=== PATIENT | male | born 1950 | race Caucasian/White ===

== ENCOUNTER 2022-12-21 10:40 | Outpatient (RCR) | payer MEDICARE, OTHER, SELFPAY ==
[2022-12-21 13:31] LABS: Alanine Aminotransferase 27 U/L (16-63); Albumin Level 3.5 g/dL (3.4-5.0); Alkaline Phosphatase 49 U/L (46-116); Anion Gap 9.1; Aspartate Amino Transferase 15 U/L (15-37); BUN Creatinine Ratio 12.2; Bilirubin Total 0.5 mg/dL (0.2-1.0); Carbon Dioxide 30.3 mmol/L (21.0-32.0); Chloride 102 mmol/L (98-107); Estimated GFR (African America >60 (>=60); Estimated GFR (Non-African Ame >60 (>=60); Globulin 3.5 g/dL; Glucose 141 mg/dL (74-106); Lactate Dehydrogenase 181 U/L (85-227); Potassium 4.4 mmol/L (3.5-5.1); Sodium 137 mmol/L (136-145)
[2022-12-21 13:58] LABS: Basophils Absolute Auto 0.1 10^3/uL (0.0-0.1); Basophils Percent Auto 1.6 % (0.2-2.0); Eosinophils Absolute Auto 0.3 10^3/uL (0.0-0.7); Eosinophils Percent Auto 5.9 % (0.9-7.0); Hemoglobin 12.3 g/dL (14.0-18.0); Immature Granulocytes Abs Auto 0.01 10^3/uL (0.00-0.03); Immature Granulocytes Pct Auto 0.2 % (0.0-0.5); Lymphocytes Absolute Auto 0.9 10^3/uL (1.2-3.8); Lymphocytes Percent Auto 17.6 % (20.5-60.0); Mean Corpuscular HGB Conc 32.4 g/dL (29.9-35.2); Mean Corpuscular Hemoglobin 29.4 pg (25.9-34.0); Mean Corpuscular Volume 90.7 fL (80.0-94.0); Mean Platelet Volume 9.6 fL (9.5-13.5); Monocytes Absolute Auto 0.4 10^3/uL (0.3-0.8); Monocytes Percent Auto 8.3 % (1.7-12.0); Neutrophils Absolute Auto 3.3 10^3/uL (1.4-6.5); Neutrophils Percent Auto 66.4 % (43.0-75.0); Platelet Count 235 10^3/uL (150-450); Red Blood Count 4.19 10^6/uL (4.70-6.10); Red Cell Distribution Width 14.7 % (11.0-15.0)
[2022-12-21 15:03] LABS: Percent Iron Saturation 19.9 %
[2022-12-22 04:07] LABS: Haptoglobin 162 mg/dL (34-355)
[2022-12-22 05:07] LABS: HCV Antibody Non Reactive (Non Reactive)
[2022-12-22 13:10] LABS: Immunoglobulin A, Qn, Serum 90 mg/dL (61-437); Immunoglobulin G, Qn, Serum 692 mg/dL (603-1613); Immunoglobulin M, Qn, Serum 97 mg/dL (15-143)
[2023-04-11 13:56] LABS: Reticulocyte Count 1.43 % (0.60-3.10)
== END 2022-12-21 13:00 | disposition home or self-care (01) ==
LOC: HEMC 10:40
PROVIDERS: PCP Internal Medicine; Visit Provider Internal Medicine Hematology & Oncology
DX: D64.9 Anemia, unspecified (principal); E80.29 Other porphyria
CPT/HCPCS: 36415; 80053; 82728; 83010; 83540; 83550; 83615; 84120; 84311; 85025; 85045; 86803; 99203; G0463

== ENCOUNTER 2023-01-11 09:17 | Outpatient (RCR) | payer MEDICARE, OTHER, SELFPAY | END 2023-01-20 23:59 | disposition home or self-care (01) | LOC: INF 09:17 | PROVIDERS: PCP Internal Medicine; Visit Provider Internal Medicine Hematology & Oncology | DX: E80.29 Other porphyria (principal); D64.9 Anemia, unspecified; D69.6 Thrombocytopenia, unspecified; D50.9 Iron deficiency anemia, unspecified; K90.9 Intestinal malabsorption, unspecified | CPT/HCPCS: G0463 ==

== ENCOUNTER 2023-01-18 09:50 | Outpatient (OUT) | payer MEDICARE, OTHER, SELFPAY ==
--- NOTE | 2023-01-18 09:53 | US_ITS ---
The [address] [address] Patient Name: NEREYDA BARKER MRN: [id number] date: 1950 Sex: M Assigned Patient Location: US Current Patient Location: Accession/Order Number: [id number] Exam Date: 01/18/2023 10:00 Report Date: 01/18/2023 12:17 At the request of: SOPHIE TEJEDA Procedure: US right upper quadrant EXAM: US right upper quadrant HISTORY: Porphyria, Right Upper Quadrant Pain COMPARISON: None. TECHNIQUE: Real-time ultrasound imaging of the right upper quadrant. Findings: Evaluation of pancreas is limited due to overlying bowel gas. Unremarkable hepatic parenchymal echotexture. No focal intrahepatic mass. The main portal vein is patent and demonstrates hepatopedal flow. The gallbladder is fluid-filled. No stones, wall thickening or pericholecystic fluid. There are echogenic nonshadowing foci adjacent to the gallbladder wall likely representing polyps. The largest measures 0.6 cm. The technologist reports a negative sonographic Carrero's sign. No biliary ductal dilatation. The common bile duct measures 0.3 cm. The right kidney measures 11.8 cm. There is good corticomedullary differentiation. No renal stones or collecting system dilatation. No focal mass or perinephric fluid collection. US/US right upper quadrant IMPRESSION: 1. Gallbladder polyps. If indicated, suggest follow-up ultrasound in one year to establish stability. Electronically authenticated by: RICKI FRIEDMAN Date: 01/18/2023 12:17
== END 2023-01-18 09:51 | disposition home or self-care (01) ==
LOC: US 09:50
PROVIDERS: PCP Internal Medicine; Visit Provider Internal Medicine Hematology & Oncology
DX: D64.9 Anemia, unspecified (principal); E80.29 Other porphyria; K82.4 Cholesterolosis of gallbladder
CPT/HCPCS: 76705

== ENCOUNTER 2023-01-28 07:19 | Outpatient (RCR) | payer MEDICARE, OTHER, SELFPAY ==
[2023-01-21 09:54] VITALS: BP 126/79; PULSE 75; RESP 18; TEMP 36.5; O2SAT 93
[2023-01-21] MEDS: FERUMOXYTOL 510 MG in 0.9 % SODIUM CHLORIDE 100 ML 351 MG IV (09:58)
[2023-01-28 09:33] VITALS: BP 145/88; PULSE 83; RESP 20; TEMP 36.8; O2SAT 98
[2023-01-28] MEDS: FERUMOXYTOL 510 MG in 0.9 % SODIUM CHLORIDE 100 ML 234 MG IV (09:39)
--- NOTE | 2023-01-28 09:50 | PC.NURSE ---
0920 Arrival ambulatory. Alert oreiented. 0930 #24 iv initiated left hand on 1st attempt, tolerated well.
--- NOTE | 2023-01-28 09:53 | PC.NURSE ---
Vital Signs Temp Pulse Resp BP Pulse Ox O2 Del Method 01/28/23 09:33 98.2 F 83 20 145/88 H 98 Room Air
== END 2023-01-28 10:30 | disposition home or self-care (01) ==
LOC: INF 07:19
PROVIDERS: PCP Internal Medicine; Visit Provider Internal Medicine Hematology & Oncology
DX: D64.9 Anemia, unspecified (principal); E80.29 Other porphyria; D69.6 Thrombocytopenia, unspecified; D50.9 Iron deficiency anemia, unspecified; K90.9 Intestinal malabsorption, unspecified
CPT/HCPCS: 96365; Q0138

== ENCOUNTER 2024-12-18 22:33 | Emergency (ER) | payer MEDICARE, OTHER, SELFPAY ==
--- OUTSIDE RECORDS SUMMARY | 2024-12-04 14:23 | XMS_ITS | Encounter Summary ---
Author Organization [facility] Address [address] [place] [address] Phone Care Team Providers Care Finishing Manager Name Role Phone Tio Rodríguez MD Primary Care Provider [phone] Ryne Maravilla MD Unavailable [phone] Jessa Magallanes MD Unavailable [phone] Reason for Referral * Imaging (Routine) - AuthorizedSpecialtyDiagnoses / ProceduresReferred By ContactReferred To ContactRadiology Diagnoses Persistent atrial fibrillation (Multi) Procedures CT post watchman full contrast Jessa Magallanes MD [address] [facility], [address] [address] Phone: tel: fax: Referral IDStatusReasonStart DateExpiration DateVisits RequestedVisits [id number] Perform Procedure Reason for Visit * Imaging (Routine) - AuthorizedSpecialtyDiagnoses / ProceduresReferred By ContactReferred To ContactRadiology Diagnoses Persistent atrial fibrillation (Multi) Procedures CT post watchman full contrast Jessa Magallanes MD [address] [facility], [facility] [address] [place] [address] Phone: tel: fax: Referral IDStatusReasonStart DateExpiration DateVisits RequestedVisits [id number] Perform Procedure Encounter Details DateTypeDepartmentCare Team (Latest Contact Info)Nqznttwboef56/14/2025 2:23 PM EDT - 12/04/2024 11:59 PM EDTHospital Encounter [place] [address] [place] [phone] Persistent atrial fibrillation (Multi) Discharge Disposition: Home Social History Tobacco UseTypesPacks/DayYears UsedDateSmoking Tobacco: FormerCigarettes1.515 Quit: 2002Smokeless Tobacco: NeverAlcohol UseStandard Drinks/WeekCommentsNever0 (1 standard drink = 0.6 oz pure alcohol)PHQ-2AnswerDate RecordedPatient Health Questionnaire-2 Qbfpo358Sex and Gender InformationValueDate RecordedSex Assigned at BirthNot on fileLegal HhlQelp60/26/2022 7:13 PM ESTGender Identity Not on fileSexual OrientationNot on filedocumented as of this encounter Functional Status * Garces Fall RiskQuestionAnswerDate of AssessmentAuthorHistory of Falling, Immediate or Within 3 Ouyzsi990 3:34 PM EDTIngris Pacheco ASecondary Qiqdrsrlc665/14/2025 3:34 PM EDTIngris Pacheco AAmbulatory Ycz544 3:34 PM EDTIngris Pacheco AIntravenous Therapy/Heparin Thzq673 3:34 PM EDT [facility] AGait/Fhgvuufonzsu040/14/2025 3:34 PM EDTWestIngris AMental Oaxmuy685 3:34 PM EDIngris Alvarez AMorse Fall Risk Kpxud108 3:34 PM EDTIngris Pacheco A * Communicable Disease ScreeningQuestionAnswerDate of AssessmentAuthorDo you have any of the following new or worsening symptoms?None of these12/04/2024 2:23 PM Manolo Amaro documented as of this encounter Medications at Time of Discharge MedicationSigDispense QuantityRefillsLast FilledStart DateEnd Date abatacept (Orencia) 125 mg/mL injection Inject under the skin. acetaminophen (TYLENOL PO) Take 625 mg by mouth if needed. aspirin 81 mg chewable tablet Indications:Unspecified atrial fibrillation (Multi),Post-operative stateChew and swallow 1 tablet (81 mg) once daily. Please start Aspirin in 3 months the day after you stop Warfarin. Do not fill before December 26, 2024.12/26/2024 atorvastatin (Lipitor) 10 mg tablet Take 1 tablet (10 mg) by mouth once daily. baclofen (Lioresal) 10 mg tablet Take 1 tablet (10 mg) by mouth as needed at bedtime for muscle spasms. ferrous gluconate 324 (38 Fe) mg tablet Take 1 tablet by mouth once daily. hydroCHLOROthiazide (HYDRODiuril) 25 mg tablet Take 1 tablet (25 mg) by mouth once daily. hydroxychloroquine (Plaquenil) 200 mg tablet Take 1 tablet (200 mg) by mouth 2 times a day. insulin glargine (Lantus U-100 Insulin) 100 unit/mL injection Inject 12 Units under the skin if needed. Take as directed per insulin instructions. insulin lispro (HumaLOG) 100 unit/mL injection Inject under the skin once daily. Take as directed per insulin instructions. leflunomide (Arava) 20 mg tablet Take 1 tablet (20 mg) by mouth once daily. losartan (Cozaar) 100 mg tablet Indications:Essential hypertensionTake 1 tablet (100 mg) by mouth once daily. 90 tablet 5010/23/2025 melatonin 10 mg tablet Take 1 tablet (10 mg) by mouth as needed at bedtime. metFORMIN (Glucophage) 500 mg tablet Take 1 tablet (500 mg) by mouth once daily. omeprazole (PriLOSEC) [address] capsule Take 1 capsule (40 mg) by mouth once daily. predniSONE (Deltasone) 5 mg tablet Take 1 tablet (5 mg) by mouth if needed. warfarin (Coumadin) 4 mg tablet Indications:Unspecified atrial fibrillation (Multi)Take 1 tablet (4 mg) by mouth see administration instructions. Tuesday, and Tuesday: 6 mg.Tuesday, Tuesday, Tuesday, Tuesday: 8 mg. Resume Warfarin 09/26/2024. Continue Warfarin for 3 months post Watchman and until cleared to STOP after your post Watchman CT.51documented as of this encounter Plan of Treatment DateTypeDepartmentCare Team (Latest Contact Info)Ejlrxzlpxzn32/24/2026 2:50 PM ESTOffice Visit [facility] [address] [facility] [address] [place] [address] Sole Perez MD [address], [address] [place] [address] documented as of this encounter Procedures Procedure NamePriorityDate/TimeAssociated DiagnosisCommentsCT POST WATCHMAN FULL NVBRGVNBAwcivbd92/14/2025 3:35 PM EDT Persistent atrial fibrillation (Multi) POCT CREATININE AND XJARonaxpa71/14/2025 2:50 PM EDT Persistent atrial fibrillation (Multi) documented in this encounter Results * CT post watchman full contrast (12/04/2024 3:35 PM EDT)Anatomical Region LateralityModalityThoracicComputed TomographySpecimen (Source)Anatomical Location / LateralityCollection Method / VolumeCollection TimeReceived Time 12/05/2024 9:32 AM EDT1 9:37 AM EDT Addenda Addendum by Soniya Antonio MD on 12/05/2024 9:36 AM EDT Interpreted By: ??Andrey Antonio, ADDENDUM: Technical: The following is to serve as an over-read for a contrast-enhanced cardiac CT, to evaluate the extravascular structures. ?? Contiguous axial CT sections are performed from level the eliud to the upper abdomen following the bolus administration of 70 cc of intravenous Omnipaque 350. ? Findings: There is pleural and subpleural opacity in the left upper lobe laterally measuring 1.3 x 0.7 cm in diameter (image 21). ?? There is no sign of pathologic lymph node enlargement. There is no pericardial or pleural effusion. ?? Images through the upper abdomen are unremarkable. ?? The visualized osseous structures are intact. ? Impression: 1.3 x 0.7 cm pleural and subpleural opacity in the left upper lobe laterally. The chronicity of these findings is indeterminate given there are no previous studies for comparison. Continued CT surveillance is recommended or further workup with PET imaging. Initially however, dedicated CT thorax with contrast is recommended. ?? Critical Finding: ??See findings. Notification was initiated on 12/05/2024 at 9:35 am by ??Andrey Antonio. ??(-YCF-) Instructions: ??See Findings. ?? Signed by: Andrey Antonio 12/05/2024 9:36 AM ?? -------- ORIGINAL REPORT -------- Dictation workstation: ?? [id number] Impressions 12/05/2024 9:31 AM EDT 1. Well seated left atrial appendage closure device without Whitley device leak. 2. No evidence of thrombus on the external surface/left atrial aspect of closure device. ?? Reading Police Matron: ??Andrey Singh, Date: ??12/05/2024 ??9:29 am ?? Signed by: Andrey Singh 12/05/2024 9:31 AM Dictation workstation: ?? [id number] Narrative 12/05/2024 9:31 AM EDT Interpreted By: Andrey Singh, STUDY: CT POST WATCHMAN FULL CONTRAST; ??12/04/2024 3:35 pm ?? INDICATION: Signs/Symptoms:POST WATCHMAN DEVICE SUSRVEILANCE FOR DEVICE RELATED THROMBUS AND PERIDEVICE LEAK. ?? COMPARISON: None. ?? ACCESSION NUMBER(S): [id number] ?? ORDERING CLINICIAN: JESSA MAGALLANES ?? TECHNIQUE: Using multidetector CT technology, Lobito CT 64-slice scanner, axial, sequential imaging with retrospective gating and minimal slice thickness was performed of the chest following the intravenous administration of contrast material. ??A low-osmolar contrast agent was used 70 mL of Omnipaque 350. ?? For optimization of anatomic evaluation, multiplanar reconstruction, maximum intensity projections, and advanced 3-D off-line postprocessing were performed on a dedicated stand-alone workstation under the direct supervision of the interpreting physician. ?? CT Dose-Length Product (DLP): ??1751.4 mGy/cm CT Dose Reduction Employed: Yes Prospective triggering, iterative reconstruction ?? FINDINGS: LEFT ATRIAL APPENDAGE: Well seated left atrial appendage closure device without Whitley device leak. There is thrombus within the left atrial appendage closure device. There is thrombus in the distal left atrial appendage. No evidence of thrombus on the external surface/left atrial aspect of closure device. There is contrast along the inferior side of closure device measuring 50% depth of closure device. ? CORONARY ARTERIES: The study was not tailored for the evaluation of coronary arteries. There is normal origin of the coronary arteries. Coronary anatomy is ??left dominant. Diffuse coronary artery calcification. ?? CARDIAC CHAMBERS: The cardiac chambers demonstrate normal atrioventricular and ventriculoarterial concordance, and systemic and pulmonary venous return. ?? LEFT ATRIUM: Dilated 5.5 cm. ?? RIGHT ATRIUM: Dilated 4.9 cm. ?? INTERATRIAL SEPTUM: Intact. ?? LEFT VENTRICLE: Normal size ?? RIGHT VENTRICLE: Normal size ?? AORTIC VALVE: The aortic valve is ??trileaflet in morphology. No calcifications. ?? MITRAL VALVE: No thickening/calcification. ?? THORACIC AORTA: The visualized thoracic aorta is normal in course, caliber, and contour. There is no acute aortic pathology, such as dissection, intramural hematoma, or contained rupture. The aortic arch is not included on this examination. ?? PERICARDIUM: There is no pericardial effusion of thickening. ?? Procedure Note Andrey Singh DO / Soniya Antonio MD - 12/05/2024 Interpreted By: Andrey Singh, STUDY: CT POST WATCHMAN FULL CONTRAST; 12/04/2024 3:35 pm INDICATION: Signs/Symptoms:POST WATCHMAN DEVICE SUSRVEILANCE FOR DEVICE RELATED THROMBUS AND PERIDEVICE LEAK. COMPARISON: None. ACCESSION NUMBER(S): [id number] ORDERING CLINICIAN: JESSA MAGALLANES TECHNIQUE: Using multidetector CT technology, Lobito CT 64-slice scanner, axial, sequential imaging with retrospective gating and minimal slice thickness was performed of the chest following the intravenous administration of contrast material. A low-osmolar contrast agent was used 70 mL of Omnipaque 350. For optimization of anatomic evaluation, multiplanar reconstruction, maximum intensity projections, and advanced 3-D off-line postprocessing were performed on a dedicated stand-alone workstation under the direct supervision of the interpreting physician. CT Dose-Length Product (DLP): 1751.4 mGy/cm CT Dose Reduction Employed: Yes Prospective triggering, iterative reconstruction FINDINGS: LEFT ATRIAL APPENDAGE: Well seated left atrial appendage closure device without Whitley device leak. There is thrombus within the left atrial appendage closure device. There is thrombus in the distal left atrial appendage. No evidence of thrombus on the external surface/left atrial aspect of closure device. There is contrast along the inferior side of closure device measuring 50% depth of closure device. CORONARY ARTERIES: The study was not tailored for the evaluation of coronary arteries. There is normal origin of the coronary arteries. Coronary anatomy is left dominant. Diffuse coronary artery calcification. CARDIAC CHAMBERS: The cardiac chambers demonstrate normal atrioventricular and ventriculoarterial concordance, and systemic and pulmonary venous return. LEFT ATRIUM: Dilated 5.5 cm. RIGHT ATRIUM: Dilated 4.9 cm. INTERATRIAL SEPTUM: Intact. LEFT VENTRICLE: Normal size RIGHT VENTRICLE: Normal size AORTIC VALVE: The aortic valve is trileaflet in morphology. No calcifications. MITRAL VALVE: No thickening/calcification. THORACIC AORTA: The visualized thoracic aorta is normal in course, caliber, and contour. There is no acute aortic pathology, such as dissection, intramural hematoma, or contained rupture. The aortic arch is not included on this examination. PERICARDIUM: There is no pericardial effusion of thickening. IMPRESSION: 1. Well seated left atrial appendage closure device without Whitley device leak. 2. No evidence of thrombus on the external surface/left atrial aspect of closure device. Reading Police Matron: Dr. Andrey Singh, Date: 12/05/2024 9:29 am Signed by: Andrey Singh 12/05/2024 9:31 AM Dictation workstation: [id number] Authorizing ProviderResult TypeResult StatusVinicius Johnnie Magallanes [facility] CT PROCEDURESEdited Result - Final * POCT CREATININE AND GFR (12/04/2024 2:50 PM EDT)ComponentValueRef RangeTest MethodAnalysis TimePerformed AtPathologist SignaturePOCT Creatinine0.900.60 - 1.30 mg/dL12/04/2024 3:11 PM EDTELY CTComment:Hydroxyurea can cause significant interference with creatinine measurement using the i-STAT device. An alternate method of creatinine measurement must be used in patients treated with hydroxyurea.POCT eGFR90>=60 mL/min/1.73m* 3:[address] Comment: Calculations of estimated GFR are performed using the 2020 CKD-EPI Study Refit ??equation without the race variable for the IDMS-Traceable Creatinine Methods. https://jasn.asnjournals.org/content/early/ASN.3637435013 Specimen (Source)Anatomical Location / LateralityCollection Method / Volume Collection TimeReceived TimeBloodVenous blood specimen / Zdxdfpn1612/04/2024 2:50 PM EDT1 2:51 PM EDT Narrative Authorizing ProviderResult TypeResult StatusVinicius Johnnie PRAKASH BLOOD ORDERABLESFinal ResultPerforming OrganizationAddressCity/State/ZIP CodePhone Number [facility] [address] [place] [address] documented in this encounter Visit Diagnoses Diagnosis Persistent atrial fibrillation (Multi) Atrial fibrillation documented in this encounter Administered Medications Medication OrderMAR ActionAction DateDoseRateSite iohexol (OMNIPaque) 350 mg iodine/mL solution 75 mL 75 mL, intravenous, Once in imaging, Starting on Tue12/04/24 at 1512, For 1 dose Given12/04/2024 3:34 PM EDT75 mLdocumented in this encounter Additional Health Concerns AssessmentNoted TimeA fall risk assessment has been completed for the patient 10/09/2024 8:56 AM EDTdocumented as of this encounter Care Teams Team MemberRelationshipSpecialtyStart DateEnd Tio Rodríguez MD [address] [place] [phone] PCP - General10/09/20 Ryne Maravilla MD [address] [facility] [address], [address] [place] [address] CardiologistCardiology-Clinical Cardiac Electrophysiology08/10/24 Jessa Magallanes MD [address] [facility] [address], [address] [place], [place] [phone] CardiologistStructural Heart09/05/24documented as of this encounter
[2024-12-18 22:38] VITALS: PULSE 92; O2SAT 99; BMI 35.5
--- OUTSIDE RECORDS SUMMARY | 2024-12-18 22:48 | XMS_ITS | Encounter Summary ---
Author Organization [facility] Address [address] [place] [address] Phone Care Team Providers Care Special Services Director Name Role Phone Tio Rodríguez MD Primary Care Provider [phone] Ryne Maravilla MD Unavailable [phone] Javan Magallanes MD Unavailable Reason for Visit * ReasonOnset DateCommentsAdvice Only12/06/2024 Encounter Details DateTypeDepartmentCare Team (Latest Contact Info)Affaamgekpb87/16/2025Telephone [place] [address] [place] [address] Bibiana Hernandez LPN Advice Only Social History Tobacco UseTypesPacks/DayYears UsedDateSmoking Tobacco: FormerCigarettes1.515 Quit: 2002Smokeless Tobacco: NeverAlcohol UseStandard Drinks/WeekCommentsNever0 (1 standard drink = 0.6 oz pure alcohol)PHQ-2AnswerDate RecordedPatient Health Questionnaire-2 Hhbci082Sex and Gender InformationValueDate RecordedSex Assigned at BirthNot on fileLegal TrnApgi28/26/2022 7:13 PM ESTGender Identity Not on fileSexual OrientationNot on filedocumented as of this encounter Miscellaneous Notes * Telephone Encounter - Bibiana Hernandez LPN - 12/07/2024 11:21 AM EDT Task completed by surgeons office regarding medication * Addendum Note - Susanne Fontenot LPN - 12/07/2024 10:09 AM EDTAddended by: SUSANNE FONTENOT on: 12/07/2024 10:09 AM Modules accepted: Orders * Telephone Encounter - Susanne Fontenot LPN - 12/07/2024 10:06 AM EDT Pt left vmm asking for a return call regaridng the next steps post watchman/ CT Scan. Called to patient and advised of Dr. Magallanes message and verbalized good understanding. Pt will discontinue Warfarin and start Aspirin 81 mg daily (listed in chart). Warfarin discontinued from med list re: LAAO. Task complete. * Telephone Encounter - Bibiana Hernandez LPN - 12/07/2024 8:54 AM EDT Patient made aware. Advised would send message to Dr. Farias, but to reach out to his office to inquire his concern * Telephone Encounter - Bibiana Hernandez LPN - 12/06/2024 1:15 PM EDT Patient called to inquire when Coumadin can be stopped and asa 81 mg can be started. States CT scanwas done 12/05 ( see August order date). To Dr. Sole Perez MD to review. documented in this encounter Plan of Treatment DateTypeDepartmentCare Team (Latest Contact Info)Uahxhoegnrb60/24/2026 2:50 PM ESTOffice Visit [facility] [address] [address] Sole Perez MD [address] [facility] [address], [address] [place] [id number] documented as of this encounter Visit Diagnoses Not on filedocumented in this encounter Additional Health Concerns AssessmentNoted TimeA fall risk assessment has been completed for the patient 10/09/2024 8:56 AM EDTdocumented as of this encounter Care Teams Team MemberRelationshipSpecialtyStart DateEnd OsceolaTio MD [address] [place] [address] PCP - General10/09/20 Ryne Maravilla MD [address] [facility], [address] [place] [address] CardiologistCardiology-Clinical Cardiac Electrophysiology08/10/24 Javan Magallanes MD [address] [facility], [address] [place], [place] [address] CardiologistStructural Heart09/05/24documented as of this encounter
--- OUTSIDE RECORDS SUMMARY | 2024-12-18 22:48 | XMS_ITS | Encounter Summary ---
Author Organization [facility] Address [address] [place] [address] Phone Care Team Providers Care Assembler Seat Name Role Phone Tio Rodríguez MD Primary Care Provider Ryne Maravilla MD Unavailable [phone] Javan Magallanes MD Unavailable [phone] Encounter Details DateTypeDepartmentCare Team (Latest Contact Info)Dszcixbpevv22/14/2025Travel Social History Tobacco UseTypesPacks/DayYears UsedDateSmoking Tobacco: FormerCigarettes1.515 Quit: 2003Smokeless Tobacco: NeverAlcohol UseStandard Drinks/WeekCommentsNever0 (1 standard drink = 0.6 oz pure alcohol)PHQ-2AnswerDate RecordedPatient Health Questionnaire-2 Pvzjf655Sex and Gender InformationValueDate RecordedSex Assigned at BirthNot on fileLegal RtaBljx64/26/2022 7:13 PM ESTGender Identity Not on fileSexual OrientationNot on filedocumented as of this encounter Functional Status * Garces Fall RiskQuestionAnswerDate of AssessmentAuthorHistory of Falling, Immediate or Within 3 Folulx244 3:34 PM EDTWestIngris ASecondary Quxkmvcih931/14/2025 3:34 PM EDTWestIngris AAmbulatory Pkd446 3:34 PM EDTWestIngris AIntravenous Therapy/Heparin Eilu795 3:34 PM EDT [facility] AGait/Dgxgpedtjhvv233/14/2025 3:34 PM EDTIngris Pacheco AMental Ihlbcs828 3:34 PM EDTIngris Pacheco AMorse Fall Risk Bwbak783 3:34 PM EDTWestIngris A * Communicable Disease ScreeningQuestionAnswerDate of AssessmentAuthorDo you have any of the following new or worsening symptoms?None of these12/04/2024 2:23 PM Manolo Amaro documented as of this encounter Plan of Treatment DateTypeDepartmentCare Team (Latest Contact Info)Ebhrasifeea55/24/2026 2:50 PM ESTOffice Visit [facility] [address] [facility] [address] [place] [address] Sole Perez MD [address] [facility] [address], [address] [place], [place] [phone] documented as of this encounter Visit Diagnoses Not on filedocumented in this encounter Additional Health Concerns AssessmentNoted TimeA fall risk assessment has been completed for the patient 10/09/2024 8:56 AM EDTdocumented as of this encounter Care Teams Team MemberRelationshipSpecialtyStart DateEnd Tio Rodríguez MD [address] [place] [phone] PCP - General10/09/20 Ryne Maravilla MD [address] [facility], [address] [place] [address] CardiologistCardiology-Clinical Cardiac Electrophysiology08/10/24 Javan Magallanes MD [address] [facility] Medical Office [facility], [address] [place] [address] CardiologistStructural Heart09/05/24documented as of this encounter
--- OUTSIDE RECORDS SUMMARY | 2024-12-18 22:49 | XMS_ITS | Clinical Summary ---
Author Organization [facility] Address [address] [place] [address] Care Team Providers Care Dry Primer Powder Blender Name Role Phone Tio Rodríguez MD Primary Care Provider [phone] Karen Hatfield APRN-CUST[employer]S PATROL OFFICER Unavailable Sole Perez MD Unavailable [phone] Porfirio Zimmerman MD Unavailable [phone] Eric Kemp MD Unavailable Tio Rodríguez MD Unavailable [phone] Tianna Sauceda RN Unavailable [phone] Allergies Active AllergyReactionsCriticalityNoted DateCommentsPenicillinsHives,Itching, Rash,Swelling,PmrodxbKtfchp49/27/2021 Other Reaction(s): Hives Medications MedicationSigDispense QuantityRefillsLast FilledStart DateEnd DateStatus Abatacept (ORENCIA SC) Once monthly infusionActive acetaminophen (Tylenol 8 Hour Arthritis Pain) 650 MG ER tablet every 12 (twelve) hoursActive hydroxychloroquine (Plaquenil) 200 MG tablet Take 1 tablet by mouth in the morning and 1 tablet before bedtime.Active leflunomide (Arava) 20 MG tablet Take 20 mg by mouth DailyActive losartan (Cozaar) 100 MG tablet Take 100 mg by mouth Daily11/01/2021ctive warfarin (Coumadin) 4 MG tablet Take 8 mg by mouth See administration instructions 8 mg S, T, W, Fri and Sun 6 mg, M & ThrActive melatonin 10 MG tablet Take 1 tablet by mouth as needed at bedtimeActive ferrous gluconate (Fergon) 324 (38 Fe) MG tablet Take 324 mg by mouth DailyActive clotrimazole (Lotrimin) 1 % cream Indications:rash to bilat arms/legsApply 1 application topically in the morning and 1 application before bedtime.4Active insulin lispro (HumaLOG) 100 UNIT/ML injection Inject under the skin in the morning and at noon and in the evening. Inject with meals.Active omeprazole (PriLOSEC) [address] capsule Indications:Gastroesophageal reflux disease without esophagitisTake 1 capsule (40 mg) by mouth Daily 90 capsule 5Active insulin glargine (Basaglar KwikPen) 100 UNIT/ML pen Indications:Type 2 diabetes mellitus with diabetic neuropathy, with long-term current use of insulin (HCC)inject 12 units subcutaneously once daily 15 mL 5Active atorvastatin (Lipitor) 10 MG tablet Indications:Mixed hyperlipidemiaTAKE 1 TABLET BY MOUTH AT BEDTIME 90 tablet 5Active hydroCHLOROthiazide (HYDRODiuril) 25 MG tablet Indications:Essential hypertensionTake 1 tablet (25 mg) by mouth in the morning. 90 tablet 5Active baclofen (Lioresal) 10 MG tablet Indications:Chronic bilateral low back pain without sciaticaTake 1 tablet (10 mg) by mouth as needed at bedtime for muscle spasms 90 tablet 5Active metFORMIN (Glucophage) 500 MG tablet Indications:Type 2 diabetes mellitus with diabetic neuropathy, with long-term current use of insulin (HCC)Take 1 tablet (500 mg) by mouth in the morning. Take with meals. 90 tablet 508/6Active Semaglutide,0.25 or 0.5MG/DOS, (Ozempic, 0.25 or 0.5 MG/DOSE,) 2 MG/3ML solution pen-injector Indications:Type 2 Diabetes MellitusInject 0.25 mg under the skin 1 (one) time per week for 28 days, THEN 0.5 mg 1 (one) time per week for 14 days. 3 mL 5Active Active Problems ProblemNoted DateDiagnosed DatePresence of Watchman left atrial appendage closure xjhgch9510/09/2024Mild intermittent asthma without vngtrhpxqzbu58/21/2025 History of atrial inpwmfw5909/10/2024Rheumatoid arthritis involving multiple sites with positive rheumatoid ypmhlc8709/06/2023Gallbladder polyp02/16/2023hronic bjewqptjriarerc07/29/2023Mixed qukmjdjsmvzcvb11/09/2023iffuse idiopathic skeletal hyperostosis of cervical spine10/26/2022Microscopic lnwnhlq1310/26/2022 Severe obesity (BMI 35.0-39.9) with xxfgyvnvhsq30/20/2021Type 2 diabetes mellitus with diabetic neuropathy, with long-term current use of insulin 09/07/2019Iron deficiency cbzshi9406/27/2019Paroxysmal atrial fibrillation 01/23/2019Benign prostatic hyperplasia without urinary fqobsxhsfah55/09/2018 Essential dgevgnyyxzix43/18/2015Gastroesophageal reflux disease without kvzvoqivqst53/18/2015Vitamin B12 lggodjsske06/18/2015 Encounters DateTypeDepartmentCare OcvqTkqkzifladw62/07/2025Patient Outreach [facility] [address] [place] [address] Tianna Sauceda RN 10/18/2024 1:00 PM EDTOffice Visit [facility] [address] [place] [address] Maame Elliott PA Type 2 diabetes mellitus with diabetic neuropathy, with long-term current use of insulin (HCC) (Primary Dx); Presence of Watchman left atrial appendage closure device; Lumbar fnmgivgdzst36/28/2025[facility] [address] [place] [address] Maame Elliott PA 10/18/20248435Wqnzna13/21/2996Bjzrly37/21/2025Patient Outreach [facility] [address] [place] [address] Tianna Sauceda RN 09/27/20248716Wkqzit63/06/2025linisync Result Encounter [facility] External [facility] Unsolicited Provider, Generic External Data 09/26/2024linisync Result Encounter [facility] External Department Unsolicited Provider, Generic External Data 5Clinisync Result Encounter [facility] External Department Unsolicited Provider, Generic External Data 09/20/2024Results Follow-Up [facility] [address] [place] [phone] Maame Elliott PA MR lumbar spine wo qerawfib11/28/2025 1:30 PM EDTAncillary Procedure [facility] [address] [place] [phone] 09/17/2024Travelfrom Last 3 Months Immunizations ImmunizationAdministration DatesNext DueABRYSVO - Respiratory syncytial virus (RSV), vaccine, bivalent, protein subunit RSV prefusion F, diluent reconstituted, 0.5 mL, PF12/12/2023Hep B, adult02/28/2002,09/20/2001,08/17/2001 Influenza, High Dose Seasonal, Preservative Free12/12/2023,01/12/2022,12/17/2020 ,03/06/2020Influenza, High-dose Seasonal, Quadrivalent, Preservative Free 01/12/2022neumococcal Conjugate PCV 1306Pneumococcal Conjugate PCV 20 09/11/2024Pneumococcal Polysaccharide VKQK9819,12/03/2013Zoster, Znecbmtzfas93/05/2025,12/12/2023 Family History Medical HistoryRelationNameCommentsCOPDBrotherSteveCancerBrotherSteveProstate cancerBrotherSteveHypertensionFatherGriggsCancerMotherKellerMelanomaNeg Hx RelationNameStatusCommentsBrotherSteve3 brothersFatherGriggsDeceasedMotherKeller AoszwoekTsyszw7Kxr(5)Alive Social History Tobacco UseTypesPacks/DayYears UsedDateSmoking Tobacco: FormerCigarettesQuit: 02/21/2003Smokeless Tobacco: Never Tobacco Cessation:Counseling Given: Not Answered Comments:Ex-heavy (20-30/day) Quit >10 years ago Alcohol UseStandard Drinks/WeekCommentsNot Currently0 (1 standard drink = 0.6 oz pure alcohol)Caffeine: .4-5 cups/day coffee; soda/popPHQ-2AnswerDate Recorded Patient Health Questionnaire-2 Mwocw135Sex and Gender InformationValue Date RecordedSex Assigned at GanvbUapb38/06/2023 2:47 PM EDTLegal SexMale 05/05/2022 7:08 PM EDTGender MqurmhvhOvxr14/06/2023 2:47 PM EDTSexual OrientationNot on fileOccupationIndustryJob Start DateJob End 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 Test 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 Not on fileNot on fileNot on file Last Filed Vital Signs Vital SignReadingTime TakenCommentsBlood Cmksfnzk720/7608 1:09 PM EDT Ahguq964010/18/2024 1:09 PM SKKGykxxsvxxbd75.5 ??C (97.7 ??F)11/25/2022 10:09 AM EDTRespiratory Rate--Oxygen Bspvqnlwkd25%10/18/2024 1:09 PM EDTInhaled Oxygen Concentration--Ziyajt905 kg (222 lb)10/18/2024 1:09 PM VEVAjymca941.6 cm (5' 6 ) 10/18/2024 1:09 PM EDTBody Mass Index35.8310/18/2024 1:09 PM EDT Plan of Treatment DateTypeDepartmentCare Team (Latest Contact Info)Gxuoxflrkzu80/27/2026 9:45 AM ESTOffice Visit [facility] [address] [place] [phone] Health MaintenanceDue DateLast DoneCommentsCT Mghrxgjqxdkk1950FIT-DNA 1950FIT1950FOBT1950 6598Hgjzrczzejrcj1951Influenza Vaccine (#1), 01/12/2022, 01/12/2022, Additional history exists Diabetes: Hemoglobin A1C, 02/24/2024, 08/29/2023, Additional history existsDiabetes: Urine Protein Ghlgeoqrq86, 08/29/2023, 08/23/2022, Additional history existsMedicare Annual Wellness (AWV)09/11/2025 09/11/2024, 2Diabetes: Retinopathy Ohktsaaxl97/13/32314403/05/2024, 11/08/2023, 10/20/2023, Additional history irdkwtLuxxovzcjnl50/12/2034 11/03/2023, 11/03/2023, 03/31/2018, Additional history existsColorectal Cancer Wlpwabpgi27/12/2034Pneumococcal Vaccine: 65+ YirzkZufsbxnlv31/22/2025, 03/06/2020, 07/30/2016, Additional history exists Procedures Procedure NamePriorityDate/TimeAssociated DiagnosisCommentsTRANSTHORACIC ECHO (TTE) QOJZUDW9209/26/2024 12:41 PM EDT CARDIAC DAUAAAHUOGDLVFV51/06/2025 8:46 AM EDT TRANSTHORACIC ECHO (TTE) XNENTFD8009/26/2024 8:38 AM EDT MR LUMBAR SPINE WO UBDRQQJQPbbuwqv13/28/2025 2:23 PM EDT Chronic bilateral low back pain without sciatica Weakness of both lower extremities Lumbar spondylosis MICROALBUMIN / CREATININE URINE LKHQJEvejbse81/14/2025 10:01 AM EDT Essential hypertension HEMOGLOBIN A1C WITH XXAQpmaifj23/14/2025 8:16 AM EDT Type 2 diabetes mellitus with diabetic neuropathy, unspecified (HCC) DIABETIC RETINOPATHY SCREENING - OU - BOTH JDOSNauygdj52/13/2025 2:40 PM EST UTGXEEDZPMNFpfjvmu06/12/2024 11:09 AM EDTfrom Last 3 Months or Most Recently Relevant to Health Maintenance Results * Transthoracic echo (TTE) limited (09/26/2024 12:41 PM EDT)Anatomical Region LateralityModalityHeartUltrasoundSpecimen (Source)Anatomical Location / LateralityCollection Method / VolumeCollection TimeReceived Time09/26/2024 12:41 PM EDT Narrative 09/26/2024 1:03 PM EDT ? [place] [address] TRANSTHORACIC ECHOCARDIOGRAM REPORT Patient Name: ? DANIEL BARKER ?Reading Physician: ?[id number] Andrey ?VacanteDO Study Date: ? 09/26/2024 ?Ordering Provider: ?[id number] OSCAR M ?PAOLA MRN/PID: ?[id number] ?Fellow: Accession#: ? [id number] ?Nurse: Date of /Age: ??1950 / 74 ? Direct Mail Coordinator: ?Alex Irizarry ?years ? RDCS, RVT Gender Assigned at ??M ? Additional Staff: : Height: ? 167.64 cm ? Admit Date: ? 09/26/2024 Weight: ? 100.70 kg ? Admission Status: ? Outpatient BSA / BMI: ?2.09 m2 / 35.83 ? Department Location: ??2S CathLab ?kg/m2 Blood Pressure: 166 /92 mmHg Study Type: ?TRANSTHORACIC ECHO (TTE) LIMITED Diagnosis/ICD: Other specified postprocedural states-Z98.890 Indication: ?s/p LAAO CPT Codes: ? Echo Limited-95972 Patient History: Pertinent History: A-fib, HTN, HLD, SOB, DM-2. Study Detail: The following Echo studies were performed: 2D. PHYSICIAN INTERPRETATION: Left Ventricle: The left ventricular systolic function is normal with a visually estimated ejectionfraction of 60%. There are no regional wall motion abnormalities. The left ventricular cavity size was not assessed. Left ventricular diastolic filling was not assessed. Left Atrium: The left atrial size was not assessed. Right Ventricle: The right ventricle was not assessed. Right ventricular systolic function not assessed. Right Atrium: The right atrial size was not assessed. Aortic Valve: The aortic valve was not assessed. Aortic valve regurgitation was not assessed. Mitral Valve: The mitral valve was not assessed. Mitral valve regurgitation was not assessed. Tricuspid Valve: The tricuspid valve was not assessed. Tricuspid regurgitation was not assessed. Pulmonic Valve: The pulmonic valve was not assessed. The pulmonic valve regurgitation was not assessed. Pericardium: Trivial pericardial effusion. Aorta: The aortic root was not assessed. In comparison to the previous echocardiogram(s): Compared with study dated 09/26/2024, no significantchange. CONCLUSIONS: 1. The left ventricular systolic function is normal with a visually estimated ejection fraction of 60%. 2. No regional wall motion abnormalities. 3. Trivial pericardial effusion. RECOMMENDATIONS: Technically suboptimal and limited study, therefore accuracy of above interpretation could be substantially diminished. Clinical correlation is advised. Consider additional imaging modalities if clinically indicated. Repeat full study if clinically indicated. QUANTITATIVE DATA SUMMARY: LV SYSTOLIC FUNCTION: ? Normal Ranges: EF-Visual: ?60 % LV EF Reported: 60 % [id number] Andrey Gibbs DO Electronically signed on 09/26/2024 at 1:03:57 PM Final Procedure Note Radiology, Radiologist, - 09/26/2024 [place] [address] TRANSTHORACIC ECHOCARDIOGRAM REPORT Patient Name: DANIEL BARKER Reading Physician: [id number] Vacante DO Study Date: 09/26/2024 Ordering Provider: [id number] LORI GUEVARA MRN/PID: [id number] Fellow: Nurse: Date of /Age: 12 1950 Direct Mail Coordinator: Dexter herman RDCS, RVT Gender Assigned at M Additional Staff: : Height: 167.64 cm Admit Date: 09/26/2024 Weight: 100.70 kg Admission Status: Outpatient BSA / BMI: 2.09 m2 / 35.83 Department Location: [address] [place] [address] kg/m2 Blood Pressure: 166 /92 mmHg Study Type: TRANSTHORACIC ECHO (TTE) LIMITED Diagnosis/ICD: Other specified postprocedural states-Z98.890 Indication: s/p LAAO CPT Codes: Echo Limited-19214 Patient History: Pertinent History: A-fib, HTN, HLD, SOB, DM-2. Study Detail: The following Echo studies were performed: 2D. PHYSICIAN INTERPRETATION: Left Ventricle: The left ventricular systolic function is normal with avisually estimated ejection fraction of 60%. There are no regional wallmotion abnormalities. The left ventricular cavity size was not assessed.Left ventricular diastolic filling was not assessed. Left Atrium: The left atrial size was not assessed. Right Ventricle: The right ventricle was not assessed. Right ventricularsystolic function not assessed. Right Atrium: The right atrial size was not assessed. Aortic Valve: The aortic valve was not assessed. Aortic valveregurgitation was not assessed. Mitral Valve: The mitral valve was not assessed. Mitral valveregurgitation was not assessed. Tricuspid Valve: The tricuspid valve was not assessed. Tricuspidregurgitation was not assessed. Pulmonic Valve: The pulmonic valve was not assessed. The pulmonic valve regurgitation was not assessed. Pericardium: Trivial pericardial effusion. Aorta: The aortic root was not assessed. In comparison to the previous echocardiogram(s): Compared with study dated 09/26/2024, no significant change. CONCLUSIONS: 1. The left ventricular systolic function is normal with a visuallyestimated ejection fraction of 60%. 2. No regional wall motion abnormalities. 3. Trivial pericardial effusion. RECOMMENDATIONS: Technically suboptimal and limited study, therefore accuracy of above interpretation could be substantially diminished. Clinical correlation is advised. Consider additional imaging modalities if clinically indicated.Repeat full study if clinically indicated. QUANTITATIVE DATA SUMMARY: LV SYSTOLIC FUNCTION: Normal Ranges: EF-Visual: 60 % LV EF Reported: 60 % [id number] Andrey Gibbs DO Electronically signed on 09/26/2024 at 1:03:57 PM Final Authorizing ProviderResult TypeResult StatusGeneric External Data ProviderCV ECHO PROCEDURESFinal Result * Cardiac catheterization (09/26/2024 8:46 AM EDT)Anatomical RegionLaterality ModalityOtherSpecimen (Source)Anatomical Location / LateralityCollection Method / VolumeCollection TimeReceived Time09/26/2024 8:46 AM EDT Narrative 09/26/2024 11:37 AM EDT [facility] [employer] ? [address] [place] [address] ? [place] [address] Cardiovascular Catheterization Report Patient Name: ?DANIEL BARKER ?Performing Physician: ??[id number] Javan ?Elpidio MUNOZ Study Date: ?09/26/2024 ?Verifying Physician: ?? [id number] Javan ?Elpidio MUNOZ MRN/PID: ? [id number] ?Steam Plant Records Clerk/Co-Scrub: Accession#: ?[id number] ?Ordering Provider: ? [id number] JAVAN Blair ?ELPIDIO Date of /Age: 12 1950 / years Steam Plant Records Clerk: Gender: ?M ? Fellow: ?Raghavendra Mason ?Karen MUNOZ ?Surgeon: Study: Left Atrial Appendage Closure Indications: Left Atrial Appendage Closure (LAAC): Pre-procedure antibiotics were given. Therapeutic ACT achieved at 250-300 seconds. Sterile prep and appropriate procedure timeout were performed. Using ultrasound guidance and Micropuncture technique dual access was obtained in the right common femoral vein. Two 8F sheaths were placed using a modified Seldinger technique. The patient was administered IV Heparin and ACT was confirmed to be therapeutic. An AcuNav ICE probe was then advanced through to the 8F sheath and under ICE guidance, trans-septalpuncture was with a VersaCross, accessing the left atrium. The trans septal tract was then dilated with Watchman FXD double curve access sheath and the ICE probe was advanced through the dilated tract into the left atrium. Next, a 6 [place] angled pigtail was advanced through the delivery sheath into the left atrial appendage and angiography was performed via the pigtail. We selected a 40 mm Watchman FLX pro closure device but we could not reach closure criteria, after reviewing both by ICE and angiography we sized the device again. We then selected a 35 mm Watchman FLX pro closure device and confirmed placement both by ICE and angiography. A 'tug test' was performed and confirmed stability. No color Doppler flow around the device was appreciated. 25% compression was confirmed by ICE. Having satisfied position, anchoring, size and seal criteria, the device was successfully deployed. All equipment was then removed and hemostasis was facilitated by 2 Percloses devices. The patient was enrolled in a research study and data was included in the LAAO registry. Cardiac Cath Post Procedure Notes: Post Procedure Diagnosis: LAAO. Blood Loss: ? Estimated blood loss during the procedure was 30 mls. Specimens Removed: ?Number of specimen(s) removed: none. ____ CONCLUSIONS: 1. Successful LAAO closure with a 35 mm Watchman FLX pro device. 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 Therapeutic ACT achieved at 250-300 seconds. Sterile prep and appropriate procedure timeout were performed. Usingultrasound guidance and Micropuncture technique dual access was obtained in the right commonfemoral vein. Two 8F sheaths were placed using a modified Seldinger technique. The patient wasadministered IV Heparin and ACT was confirmed to be therapeutic. An AcuNav ICE probe was then advanced through to the 8F sheath and underICE guidance, trans-septal puncture was with a VersaCross, accessing theleft atrium. The trans septal tract was then dilated with Watchman FXDdouble curve access sheath and the ICE probe was advanced through thedilated tract into the left atrium. Next, a 6 [place] angled pigtail wasadvanced through the delivery sheath into the left atrial appendage andangiography was performed via the pigtail. We selected a 40 mm WatchmanFLX pro closure device but we could not reach closure criteria, afterreviewing both by ICE and angiography we sized the device again. We thenselected a 35 mm Watchman FLX pro closure device and confirmed placement both by ICE and angiography. A 'tug test' was performed and confirmedstability. No color Doppler flow around the device was appreciated. 25%compression was confirmed by ICE. Having satisfied position, anchoring,size and seal criteria, the device was successfully deployed. All equipment was then removed and hemostasis was facilitated by 2 Perclosesdevices. The patient was enrolled in a research study and data wasincluded in the LAAO registry. Cardiac Cath Post Procedure Notes: Post Procedure Diagnosis: LAAO. Blood Loss: Estimated blood loss during the procedure was 30mls. Specimens Removed: Number of specimen(s) removed: none. CONCLUSIONS: 1. Successful LAAO closure with a 35 mm Watchman FLX pro device. ICD 10 Codes: Paroxysmal atrial fibrillation-I48.0 CPT Codes: Perc left atrial appendage closure (LAAC)-04798 [id number] Javan Magallanes MD Performing Physician Final Authorizing ProviderResult TypeResult StatusGeneric External Data ProviderCV CARDIAC CATH PROCEDURESFinal Result * Transthoracic echo (TTE) limited (09/26/2024 8:38 AM EDT)Anatomical Region LateralityModalityHeartUltrasoundSpecimen (Source)Anatomical Location / LateralityCollection Method / VolumeCollection TimeReceived Time09/26/2024 8:38 AM EDT Narrative 09/26/2024 9:12 AM EDT ? [place] [address] TRANSTHORACIC ECHOCARDIOGRAM REPORT Patient Name: ? DANIEL BARKER ?Reading Physician: ?[id number] Alfie ?LAMIN Powell Study Date: ? 09/26/2024 ?Ordering Provider: ?[id number] OSCAR ?PAOLA MRN/PID: ?[id number] ?Fellow: Accession#: ? [id number] ?Nurse: Date of /Age: ??1950 / ? Direct Mail Coordinator: ?Alex Salvadorby ?years ? RDCS, RVT Gender Assigned at ??M ? Additional Staff: : Height: ? 167.64 cm ? Admit Date: ? 09/26/2024 Weight: ? 100.70 kg ? Admission Status: ? Outpatient BSA / BMI: ?2.09 m2 / 35.83 ? Department Location: ??2S CathLab ?kg/m2 Blood Pressure: 157 /90 mmHg Study Type: ?TRANSTHORACIC ECHO (TTE) LIMITED Diagnosis/ICD: Unspecified atrial fibrillation-I48.91 Indication: ?pre LAAO CPT Codes: ? Echo Limited-32602 Patient History: Pertinent History: A-fib, HTN, HLD, SOB, DM-2. Study Detail: The following Echo studies were performed: 2D. PHYSICIAN INTERPRETATION: Left Ventricle: The left ventricular systolic function is normal with a visually estimated ejectionfraction of 60%. There are no regional wall motion abnormalities. The left ventricular cavity size was not assessed. Left ventricular diastolic filling was not assessed. Left Atrium: The left atrial size was not assessed. Right Ventricle: The right ventricle was not assessed. Right ventricular systolic function not assessed. Right Atrium: The right atrial size was not assessed. Aortic Valve: The aortic valve was not assessed. Aortic valve regurgitation was not assessed. Mitral Valve: The mitral valve was not assessed. Mitral valve regurgitation was not assessed. Tricuspid Valve: The tricuspid valve was not assessed. Tricuspid regurgitation was not assessed. Pulmonic Valve: The pulmonic valve was not assessed. The pulmonic valve regurgitation was not assessed. Pericardium: Trivial pericardial effusion. There is a pericardial fat pad present. Aorta: The aortic root was not assessed. In comparison to the previous echocardiogram(s): Comparison study dated 10/09/20 showed a similar LVEF 60%. Trivial to 1+ MR and trivial TR. CONCLUSIONS: 1. The left ventricular systolic function is normal with a visually estimated ejection fraction of 60%. 2. No regional wall motion abnormalities. 3. Trivial pericardial effusion. QUANTITATIVE DATA SUMMARY: LV SYSTOLIC FUNCTION: ? Normal Ranges: EF-Visual: ?60 % LV EF Reported: 60 % [id number] Alfie Medina MD, [facility] Electronically signed on 09/26/2024 at 9:12:43 AM Final Procedure Note Radiology, Radiologist, - 09/26/2024 [place] [id number] TRANSTHORACIC ECHOCARDIOGRAM REPORT Patient Name: DANIEL Cummings LUCERO Reading Physician: [id number] Medina MD,[facility] Study Date: 09/26/2024 Ordering Provider: [id number] GUEVARA MRN/PID: [id number] Fellow: Nurse: Date of /Age: 12 1950 Direct Mail Coordinator: Dexter herman RD, RVT Gender Assigned at M Additional Staff: : Height: 167.64 cm Admit Date: 09/26/2024 Weight: 100.70 kg Admission Status: Outpatient BSA / BMI: 2.09 m2 / 35.83 Department Location: CathLab kg/m2 Blood Pressure: 157 /90 mmHg Study Type: TRANSTHORACIC ECHO (TTE) LIMITED Diagnosis/ICD: Unspecified atrial fibrillation-I48.91 Indication: pre LAAO CPT Codes: Echo Limited-83844 Patient History: Pertinent History: A-fib, HTN, HLD, SOB, DM-2. Study Detail: The following Echo studies were performed: 2D. PHYSICIAN INTERPRETATION: Left Ventricle: The left ventricular systolic function is normal with avisually estimated ejection fraction of 60%. There are no regional wallmotion abnormalities. The left ventricular cavity size was not assessed.Left ventricular diastolic filling was not assessed. Left Atrium: The left atrial size was not assessed. Right Ventricle: The right ventricle was not assessed. Right ventricularsystolic function not assessed. Right Atrium: The right atrial size was not assessed. Aortic Valve: The aortic valve was not assessed. Aortic valveregurgitation was not assessed. Mitral Valve: The mitral valve was not assessed. Mitral valveregurgitation was not assessed. Tricuspid Valve: The tricuspid valve was not assessed. Tricuspidregurgitation was not assessed. Pulmonic Valve: The pulmonic valve was not assessed. The pulmonic valve regurgitation was not assessed. Pericardium: Trivial pericardial effusion. There is a pericardial fat pad present. Aorta: The aortic root was not assessed. In comparison to the previous echocardiogram(s): Comparison study dated10/09/20 showed a similar LVEF 60%. Trivial to 1+ MR and trivial TR. CONCLUSIONS: 1. The left ventricular systolic function is normal with a visuallyestimated ejection fraction of 60%. 2. No regional wall motion abnormalities. 3. Trivial pericardial effusion. QUANTITATIVE DATA SUMMARY: LV SYSTOLIC FUNCTION: Normal Ranges: EF-Visual: 60 % LV EF Reported: 60 % [id number] Alfie Medina MD, FACC Electronically signed on 09/26/2024 at 9:12:43 AM Final Authorizing ProviderResult TypeResult StatusGeneric External Data ProviderCV ECHO PROCEDURESFinal Result * MR lumbar spine wo contrast (09/17/2024 2:23 PM EDT)Anatomical Region LateralityModalitySpine, L-spineMagnetic ResonanceSpecimen (Source)Anatomical Location / LateralityCollection Method / VolumeCollection TimeReceived Time 09/18/2024 12:33 PM EDT Impressions 09/18/2024 12:38 PM EDT Degenerative changes lumbar spine as discussed. ELECTRONICALLY SIGNED BY: Nick Khan MD Narrative 09/18/2024 12:38 PM EDT EXAMINATION/TECHNIQUE: MR LUMBAR SPINE WO CONTRAST HISTORY: ?? Chronic worsening low back pain. Bilateral leg pain and weakness. COMPARISON: Lumbar radiographs 06/18/2024. CT abdomen/pelvis 06/22/2024. ? RESULT: Counting reference: ??Lumbosacral junction. ??For the purposes of this report, L5-S1 is considered the last well-formed disc space. 5 lumbar type vertebral bodies. Alignment: ?Mild rightward curvature. Straightening of the lumbar lordosis. Otherwise near-anatomic. Bone marrow signal: No evidence for recent fracture. No pathologic marrow infiltration. Endplate degenerative signal at L2-L3 and L3-L4. Underlying decreased bone mineral density. Conus: ??The conus is within normal limits of signal intensity and morphology. ?? Paraspinal soft tissues: ?? Grossly unchanged from the recent CT of the abdomen/pelvis. Lower thoracic spine: ??Visualized lower thoracic canal and foramina without significant narrowing. T12-L1: ??No significant canal or foraminal narrowing. L1-L2: ?Tiny disc bulge. Facet degenerative changes. No significant canal or foraminal narrowing. L2-L3: ?Broad-based disc bulge. Annular fissure. Possible small central zone protrusion. Endplate osteophytes. Ligamentous hypertrophy. Facet degenerative changes. Mild to moderate canal narrowing with moderate bilateral foraminal narrowing. L3-L4: ?Broad-based disc bulge. Annular fissure. Possible small central zone protrusion endplate osteophytes. Ligamentous hypertrophy. Facet degenerative changes. Severe left and moderate right foraminal narrowing with mild to moderate canal narrowing. L4-L5: ?Broad-based disc bulge. Endplate osteophytes. Facet degenerative changes. Ligamentous hypertrophy. Severe left and moderate right foraminal narrowing with moderate canal narrowing. L5-S1: ?Disc bulge with possible small central zone protrusion. Facet degenerative changes. Moderate right and mild left foraminal narrowing without significant canal narrowing. Sacrum and iliac wings: ?? The visualized sacrum and iliac wings are unremarkable. Procedure Note Nick Khan MD - 09/18/2024 EXAMINATION/TECHNIQUE: MR LUMBAR SPINE WO CONTRAST HISTORY: Chronic worsening low back pain. Bilateral leg pain andweakness. COMPARISON: Lumbar radiographs 06/18/2024. CT abdomen/pelvis 06/22/2024. RESULT: Counting reference: Lumbosacral junction. For the purposes of thisreport, L5-S1 is considered the last well-formed disc space. 5 lumbar typevertebral bodies. Alignment: Mild rightward curvature. Straightening of the lumbarlordosis. Otherwise near-anatomic. Bone marrow signal: No evidence for recent fracture. No pathologic marrow infiltration. Endplate degenerative signal at L2-L3 and L3-L4. Underlying decreased bone mineral density. Conus: The conus is within normal limits of signal intensity andmorphology. Paraspinal soft tissues: Grossly unchanged from the recent CT of the abdomen/pelvis. Lower thoracic spine: Visualized lower thoracic canal and foraminawithout significant narrowing. T12-L1: No significant canal or foraminal narrowing. L1-L2: Tiny disc bulge. Facet degenerative changes. No significantcanal or foraminal narrowing. L2-L3: Broad-based disc bulge. Annular fissure. Possible small centralzone protrusion. Endplate osteophytes. Ligamentous hypertrophy. Facetdegenerative changes. Mild to moderate canal narrowing with moderatebilateral foraminal narrowing. L3-L4: Broad-based disc bulge. Annular fissure. Possible small centralzone protrusion endplate osteophytes. Ligamentous hypertrophy. Facetdegenerative changes. Severe left and moderate right foraminal narrowingwith mild to moderate canal narrowing. L4-L5: Broad-based disc bulge. Endplate osteophytes. Facet degenerativechanges. Ligamentous hypertrophy. Severe left and moderate right foraminalnarrowing with moderate canal narrowing. L5-S1: Disc bulge with possible small central zone protrusion. Facetdegenerative changes. Moderate right and mild left foraminal narrowingwithout significant canal narrowing. Sacrum and iliac wings: The visualized sacrum and iliac wings areunremarkable. IMPRESSION: Degenerative changes lumbar spine as discussed. ELECTRONICALLY SIGNED BY: Nick Khan MD Authorizing ProviderResult TypeResult StatusSumyranda Elliott [facility] MRI PROCEDURESFinal Result * Microalbumin / creatinine urine ratio (09/03/2024 10:01 AM EDT)ComponentValue Ref RangeTest MethodAnalysis TimePerformed AtPathologist SignatureCREATININE, RANDOM [id number] - 320 mg/dLQUESTALBUMIN, URINE0.5See Note: mg/dLQUEST Comment: Reference Range: Reference Range Not established ALBUMIN/CREATININE RATIO, RANDOM URINE3<30 mg/g creatQUESTComment: The ADA defines abnormalities in albumin excretion as follows: Albuminuria Category ?Result (mg/g creatinine) Normal to Mildly increased <30 Moderately increased ? 30-299 Severely increased > OR = 300 The ADA recommends that at least two of three specimens collected within a 3-6 month period be abnormal before considering a patient to be within a diagnostic category. Specimen (Source)Anatomical Location / LateralityCollection Method / Volume Collection TimeReceived TimeUrineUrine specimen obtained by clean catch procedure / [id number]/03/2024 10:01 AM EDT09/03/2024 10:01 AM EDT Narrative [facility] - 09/04/2024 11:15 AM EDT SPLIT 09/03/2024 FROM [id number] Resulting Agency Comment Performing Organization Information ?Site ID: [id number] ?Name: [email or web address] [facility] ?Address: [address] [place] [address], [address] [place] [id number] ?Director: Roger Reid MD Authorizing ProviderResult TypeResult StatusGincynthia Sanchez NPLAB URINE ORDERABLESFinal ResultPerforming OrganizationAddressCity/State/ZIP CodePhone Number [facility] * (ABNORMAL) Hemoglobin a1c with eag (09/03/2024 8:16 AM EDT)ComponentValueRef RangeTest MethodAnalysis TimePerformed AtPathologist SignatureHemoglobin A1C 6.6(H)<5.7 %QUESTComment: For someone without known diabetes, a hemoglobin A1c value of 6.5% or greater indicates that they may have diabetes and this should be confirmed with a follow-up test. For someone with known diabetes, a value <7% indicates that their diabetes is well controlled and a value greater than or equal to 7% indicates suboptimal control. A1c targets should be individualized based on duration of diabetes, age, comorbid conditions, and other considerations. Currently, no consensus exists regarding use of hemoglobin A1c for diagnosis of diabetes for children. ?? EAG (MG/DL)143mg/dLQUESTEAG (MMOL/L)7.9mmol/LQUESTSpecimen (Source)Anatomical Location / LateralityCollection Method / VolumeCollection TimeReceived TimeBlood Venous blood specimen / [id number]/03/2024 8:16 AM EDT09/03/2024 8:17 AM EDT Narrative [facility] - 09/04/2024 6:06 AM EDT FASTING:YES PATIENT UNABLE TO VOID; ADVISED TO RETURN FOR COLLECTION. FASTING: YES Resulting Agency Comment Performing Organization Information ?Site ID: [id number] ?Name: [facility] ?Address: [address] [place] [address] ?Director: Roger Reid MD Authorizing ProviderResult TypeResult StatusGincynthia Sanchez NPLAB BLOOD ORDERABLESFinal ResultPerforming OrganizationAddressCity/State/ZIP CodePhone Number [facility] * Diabetic Retinopathy Screening - OU - Both Eyes (03/05/2024 2:40 PM EST) Anatomical RegionLateralityModalityHeadOther Narrative Authorizing ProviderResult TypeResult StatusNoms Provider Unallocated MDOPHTH PHOTOGRAPHYFinal Result * Colonoscopy (11/03/2023 11:09 AM EDT)Anatomical RegionLateralityModality Endoscopy Narrative Authorizing ProviderResult TypeResult StatusUnknown Practice AENDOSCOPY PROCEDURE ORDERABLESFinal Result from Last 3 Months or Most Recently Relevant to Health Maintenance Insurance Care Teams Team MemberRelationshipSpecialtyStart DateEnd Date Tio Rodríguez MD [address] [place] [id number] PCP - General07/27/22 Tio Rodríguez MD [address] [place] [address] PCP - ACO Reach06/22/23 Karen Hatfield, ELECT[employer]ICAL LOGGING OPERATOR[employer] OFFICER [address] [place] [address] Nurse PractitionerDermatology08/27/22 Sole Perez MD [address] [facility] [place] [address] Referring PhysicianCardiology08/27/22 Porfirio Zimmerman MD [address] [place] [address] Referring PhysicianRheumatology08/27/22 Eric Kemp MD [address] [place] [address] Consulting Physician08/30/22 Tianna Sauceda, ZOHAIB [address] [place] [address] Registered NurseInternal Medicine02/28/24
--- OUTSIDE RECORDS SUMMARY | 2024-12-18 22:49 | XMS_ITS | Clinical Summary ---
Author Organization [facility] Address [address] [place] [address] Phone Care Team Providers Care Frame Pulley Mortising Machine Operator Name Role Phone Tio Rodríguez MD Primary Care Provider Ryne Maravilla MD Unavailable [phone] Javan Magallanes MD Unavailable [phone] Allergies Active AllergyReactionsCriticalityNoted DateCommentsPenicillinsHives,Itching Nupste6211/29/2022 Medications MedicationSigDispense QuantityRefillsLast FilledStart DateEnd DateStatus abatacept (Orencia) 125 mg/mL injection Inject under the skin.Active atorvastatin (Lipitor) 10 mg tablet Take 1 tablet (10 mg) by mouth once daily.Active ferrous gluconate 324 (38 Fe) mg tablet Take 1 tablet by mouth once daily.Active hydroCHLOROthiazide (HYDRODiuril) 25 mg tablet Take 1 tablet (25 mg) by mouth once daily.Active hydroxychloroquine (Plaquenil) 200 mg tablet Take 1 tablet (200 mg) by mouth 2 times a day.Active leflunomide (Arava) 20 mg tablet Take 1 tablet (20 mg) by mouth once daily.Active omeprazole (PriLOSEC) [address] capsule Take 1 capsule (40 mg) by mouth once daily.Active predniSONE (Deltasone) 5 mg tablet Take 1 tablet (5 mg) by mouth if needed.Active insulin lispro (HumaLOG) 100 unit/mL injection Inject under the skin once daily. Take as directed per insulin instructions. Active insulin glargine (Lantus U-100 Insulin) 100 unit/mL injection Inject 12 Units under the skin if needed. Take as directed per insulin instructions.Active melatonin 10 mg tablet Take 1 tablet (10 mg) by mouth as needed at bedtime.Active acetaminophen (TYLENOL PO) Take 625 mg by mouth if needed.Active metFORMIN (Glucophage) 500 mg tablet Take 1 tablet (500 mg) by mouth once daily.5Active baclofen (Lioresal) 10 mg tablet Take 1 tablet (10 mg) by mouth as needed at bedtime for muscle spasms.Active aspirin 81 mg chewable tablet Indications:Unspecified atrial fibrillation (Multi),Post-operative stateChew and swallow 1 tablet (81 mg) once daily. Please start Aspirin in 3 months the day after you stop Warfarin. Do not fill before December 26, 2024.5Active losartan (Cozaar) 100 mg tablet Indications:Essential hypertensionTake 1 tablet (100 mg) by mouth once daily. 90 tablet ctive warfarin (Coumadin) 4 mg tablet Indications:Unspecified atrial fibrillation (Multi)Take 1 tablet (4 mg) by mouth see administration instructions. Tuesday, and Tuesday: 6 mg.Tuesday, Tuesday, Tuesday, Tuesday: 8 mg. Resume Warfarin 09/26/2024. Continue Warfarin for 3 months post Watchman and until cleared to STOP after your post Watchman CT.Discontinued(Therapy completed) Active Problems ProblemNoted DateDiagnosed DatePresence of Watchman left atrial appendage closure lbungm0010/09/2024Encounter for examination for normal comparison and control in clinical research xzvxtaz9009/19/2024Other ubwbexhmv10/18/2025 Unspecified snosjfbok29/18/2025Former fbzzoj5401/13/2024History of cardiac radiofrequency ablation (RFA)01/13/2024MI 35.0-35.9,adult01/25/2023 Kyefekcemdofzg63/05/2023Shortness of oavkyo3001/25/2023iabetes mellitus, type 2 11/29/2022Essential eshjszfnensk55/09/2023Mixed brokrltkuhnbvt77/09/2023 Persistent atrial zysltmswjcto68/09/2023Rheumatoid mcuiawlpk30/09/2023trial bejprrt9911/29/2022 Encounters DateTypeDepartmentCare OsojQbkqiihyogk55/16/[address] [place] [address] Bibiana Hernandez LPN Advice Only12/04/2024 2:23 PM EDT - 12/04/2024 11:59 PM EDTHospital Encounter [address] [phone] Persistent atrial fibrillation (Multi) Discharge Disposition: Home12/04/20240142Gvxodv10/10/7929Rmtsja81/02/2025Refill [facility] [address] [facility] [address] [place] [address] Josselyn Robertson LPN Essential /19/2025 9:[address] [place] [address] Sole Perez MD Persistent atrial fibrillation (Multi) (Primary Dx); Mixed hyperlipidemia; History of cardiac radiofrequency ablation (RFA); Essential hypertension; Typical atrial flutter (Multi); Shortness of breath; Type 2 diabetes mellitus without complication, with long-term current use of insulin (Multi); Anticoagulated; BMI 35.0-35.9,adult; Former smoker; Presence of Watchman left atrial appendage closure device Discharge Disposition: Home10/09/20242034Giwccr07/12/8069Tsqjhn94/06/2025 10:00 AM EDT - 09/26/2024 12:30 [address] [phone] Javan Magallanes MD LAAO (Left Atrial Appendage Occlusion) [76417 (CPT??)]09/26/2024 7:50 AM EDT - 09/26/2024 1:56 PM EDTHospital Encounter [address] [address] Javan Magallanes MD Persistent atrial fibrillation (Multi) (Primary Dx); Encounter for examination for normal comparison and control in clinical research program; Pre-op exam; Unspecified atrial fibrillation (Multi); Post-operative state Discharge Disposition: Home09/26/20247458Rzsbbp22/05/2025Telephone [facility] Joi [address] [place] [address] Johanna Bruce RN 09/20/20247718Vsaacl69/30/2025Orders Only [facility] [address] [place] [address] Johanna Bruce RN Persistent atrial fibrillation (Multi) (Primary Dx)09/19/2024Orders Only [facility] [address] [place] [phone] Johanna Bruce RN Persistent atrial fibrillation (Multi) (Primary Dx); Encounter for examination for normal comparison and control in clinical research programfrom Last 3 Months Immunizations ImmunizationAdministration DatesNext DueFlu vaccine, trivalent, preservative free, HIGH-DOSE, age 65y+ (Fluzone)12/12/2023,12/17/2020,03/06/2020,01/14/2019 Pneumococcal conjugate vaccine, 13-valent (PREVNAR 13)07/30/2016Pneumococcal conjugate vaccine, 20-valent (PREVNAR 20)09/11/2024Pneumococcal polysaccharide vaccine, 23-valent, age 2 years and older (PNEUMOVAX 23)03/06/2020ESPIRATORY SYNCYTIAL VIRUS (RSV), ELIGIBLE PTS, 0.5 ML (ABRYSVO)12/12/2023Tdap vaccine, age 7 year and older (BOOSTRIX, ADACEL)11/12/2017Zoster vaccine, recombinant, adult (SHINGRIX)02/26/2024,12/12/2023 Family History Medical HistoryRelationNameCommentsProstate cancerBrotherDiabetesFather 1 HypertensionFather 1CancerMother 1RelationNameStatusCommentsBrotherFather 1 Father 2NoneDeceasedMother 1Mother 2GrandfatherDeceased Social History Tobacco UseTypesPacks/DayYears UsedDateSmoking Tobacco: FormerCigarettes1.515 Quit: 2002Smokeless Tobacco: Never Tobacco Cessation:Counseling Given: Not Answered Alcohol UseStandard Drinks/WeekCommentsNever0 (1 standard drink = 0.6 oz pure alcohol)PHQ-2AnswerDate RecordedPatient Health Questionnaire-2 Lztls292 Sex and Gender InformationValueDate RecordedSex Assigned at BirthNot on file Legal PxzEiso24/26/2022 7:13 PM ESTGender IdentityNot on fileSexual Orientation Not on file Last Filed Vital Signs Vital SignReadingTime TakenCommentsBlood Funiecuu114/8610/09/2024 8:56 AM EDT Uqqsd461710/09/2024 8:56 AM SCVGzclxaecmlc77 ??C (96.8 ??F)09/26/2024 8:22 AM EDT Respiratory Pceq122809/26/2024 10:32 AM EDTOxygen Bqsnwatblm379%09/26/2024 10:32 AM EDTInhaled Oxygen Concentration--Ixuzpv242 kg (221 lb)10/09/2024 8:56 AM EDT Qqhogv963.6 cm (5' 6 )10/09/2024 8:56 AM EDTBody Mass Index35.6708 8:56 AM EDT Plan of Treatment DateTypeDepartmentCare Team (Latest Contact Info)Dqonkppkghs95/24/2026 2:50 PM ESTOffice Visit [facility] [address] [phone] Sole Perez MD 703 [facility] 2, [address] [place] [address] Health MaintenanceDue DateLast DoneCommentsCT Gqqjpwokwzvk1950iabetes: Hemoglobin A1C1950FIT-DNA (Cologuard)1950FIT1950igmoidoscopy 1950MMR Vaccines (1 of 1 - Standard series)02/15/1952Hepatitis C Screening 1969Abdominal Aortic Aneurysm (AAA) Wvjxzhaug62/25/2016Influenza Vaccine (#1)/, 12/17/2020, 03/06/2020, Additional history exists COVID-19 Vaccine ( - season)2024Diabetes: Retinopathy Screening /11/2022, 2Diabetes: Urine Protein Hggfibfei95/14/2026 09/03/2024, 08/29/2023, 08/23/2022Lipid Panel/, 08/29/2023 Medicare Annual Wellness Visit (AWV)/, 09/07/2023, 08/30/2022, Additional history existsDTaP/Tdap/Td Vaccines (2 - Td or Tdap) Colonoscopy/01/2024, 03/31/2018Colorectal Cancer Xoybvjzcd97/12/2034RSV High Risk: (Elderly (60+) or Population) Pmavmgcmn32/21/2024Zoster VkqvahhdWowsbmgne82/05/2025, 12/12/2023neumococcal UekeahbZpeqfywwv59/22/2025, 03/06/2020, 07/30/2016HIB VaccinesAged OutNo longer eligible based on patient's age to complete this topicHPV VaccinesAged OutNo longer eligible based on patient's age to complete this topicHepatitis A VaccinesAged OutNo longer eligible based on patient's age to complete this topic Hepatitis B VaccinesAged OutNo longer eligible based on patient's age to complete this topicIPV VaccinesAged OutNo longer eligible based on patient's age to complete this topicMeningococcal VaccineAged OutNo longer eligible based on patient's age to complete this topicRotavirus VaccinesAged OutNo longer eligible based on patient's age to complete this topic Medical Devices ImplantedTypeAreaManufacturerDevice IdentifierShelf Expiration DateModel / Serial / LotDevice, Closure, 35mm Watchman Flx Pro Laac - [id number] Implanted:Qty: 1 on 09/26/2024 by [facility]Other Cardiac ImplantN/A: HeartLASHONDA [employer]ENT[employer] [id number] 02/07/[id number] / / [id number] Procedures Procedure NamePriorityDate/TimeAssociated DiagnosisCommentsCT POST WATCHMAN FULL UCUVNZBMBtqdviy67/14/2025 3:35 PM EDT Persistent atrial fibrillation (Multi) POCT CREATININE AND VKNDrhbfnq96/14/2025 2:50 PM EDT Persistent atrial fibrillation (Multi) ECG 12-WCVOXtrfsko72/19/2025 9:00 AM EDT Persistent atrial fibrillation (Multi) Typical atrial flutter (Multi) TRANSTHORACIC ECHO (TTE) CEJKPQMErwwywz93/06/2025 12:59 PM EDT Post-operative state ECG 12-UCWMCDUV44/06/2025 11:23 AM EDT LAAO (LEFT ATRIAL APPENDAGE OCCLUSION)Cdjfrlq2209/26/2024 10:29 AM EDT Persistent atrial fibrillation (Multi) Encounter for examination for normal comparison and control in clinical research program ACTIVATED CLOTTING TIME XIEFnrdqyy15/06/2025 9:50 AM EDT TRANSTHORACIC ECHO (TTE) SMQVRVEXQKY90/06/2025 8:52 AM EDT Pre-op exam Unspecified atrial fibrillation (Multi) ECG 12-LQKPHQPG35/06/2025 8:40 AM EDT COAGULATION NCLFRWTRQY25/06/2025 8:11 AM EDT EOFXCAC9809/26/2024 8:11 AM EDT COMPREHENSIVE METABOLIC YWICVTCUW14/06/2025 8:11 AM EDT TYPE AND UGMLZMDKEE27/06/2025 8:11 AM EDT from Last 3 Months Results * CT post watchman full contrast [...] -------- ORIGINAL REPORT -------- Dictation workstation: ?? [id number] Impressions 12/05/2024 9:31 AM EDT 1. Well seated left atrial appendage closure device without Whitley device leak. 2. No evidence of thrombus on the external surface/left atrial aspect of closure device. ?? Reading Live Truck Technician: ??Andrey Singh, Date: ??12/05/2024 ??9:29 am ?? Signed by: Andrey Singh 12/05/2024 9:31 AM Dictation workstation: ?? [id number] Narrative 12/05/2024 9:31 AM EDT Interpreted By: Andrey Singh, STUDY: CT POST WATCHMAN FULL CONTRAST; ??12/04/2024 3:35 pm ?? INDICATION: Signs/Symptoms:POST WATCHMAN DEVICE SUSRVEILANCE FOR DEVICE RELATED THROMBUS AND PERIDEVICE LEAK. ?? COMPARISON: None. ?? ACCESSION NUMBER(S): [id number] ?? ORDERING CLINICIAN: JAVAN MAGALLANES ?? TECHNIQUE: Using multidetector CT technology, Wurldtech CT 64-slice scanner, axial, sequential imaging with [...] AND PERIDEVICE LEAK. COMPARISON: None. ACCESSION NUMBER(S): [id number] ORDERING CLINICIAN: JAVAN MAGALLANES TECHNIQUE: Using multidetector CT technology, Lobito [...] surface/left atrial aspect of closure device. Reading Live Truck Technician: Dr. Andrey Singh, Date: 12/05/2024 9:29 am Signed by: Andrey Singh 12/05/2024 9:31 AM Dictation workstation: [id number] Authorizing ProviderResult TypeResult StatusVinicius Johnnie Magallanes MDIMG CT PROCEDURESEdited Result - Final * POCT [...] race variable for the IDMS-Traceable Creatinine Methods. https://jasn.asnjournals.org/content/early/ASN.5141955697 Specimen (Source)Anatomical Location / LateralityCollection Method / Volume Collection TimeReceived TimeBloodVenous blood specimen / Wyuxgkg0412/04/2024 2:50 PM EDT1 2:51 PM EDT Narrative Authorizing ProviderResult TypeResult StatusVinbeti Magallanes MDLAB BLOOD ORDERABLESFinal ResultPerforming OrganizationAddressCity/State/ZIP CodePhone Number STEFAN[address] [place] [address] * ECG 12 Lead (10/09/2024 9:00 AM EDT) Only the most recent of3 resultswithin the time period is included. Specimen (Source)Anatomical Location / LateralityCollection Method / Volume Collection TimeReceived Time Narrative CPACS - 10/09/2024 9:33 AM EDT Normal sinus rhythm with borderline prolonged QTc interval with PACs and PVCs Authorizing ProviderResult TypeResult StatusMorefugio Perez MDECG ORDERABLES Final ResultPerforming OrganizationAddressCity/State/ZIP CodePhone Number CPACS * TRANSTHORACIC ECHO (TTE) LIMITED (09/26/2024 12:59 PM EDT)ComponentValueRef RangeTest MethodAnalysis TimePerformed AtPathologist SignatureLV EF60%SYNGO Specimen (Source)Anatomical Location / LateralityCollection Method / Volume Collection TimeReceived Time09/26/2024 12:41 PM EDT Narrative SYNGO - 09/26/2024 1:03 PM EDT ? [place] [address] TRANSTHORACIC ECHOCARDIOGRAM REPORT Patient Name: ? DANIEL BARKER ?Reading Physician: ?[id number] Andrey ?VacanteDO Study Date: ? 09/26/2024 ?Ordering Provider: ?[id number] LELO M ?RAPHAEL MRN/PID: ?[id number] ?Fellow: Accession#: ? [id number] ?Nurse: Date of /Age: ??1950 / ? Powder Loader: ?Alex Irizarry ?years ? RDCS, RVT Gender Assigned at ??M ? Additional Staff: : Height: ? 167.64 cm ? Admit Date: ? 09/26/2024 Weight: ? 100.70 kg ? Admission Status: ? Outpatient BSA / BMI: ?2.09 m2 / 35.83 ? Department Location: ?? CathLab ?kg/m2 Blood Pressure: 166 /92 mmHg Study Type: ?TRANSTHORACIC ECHO (TTE) LIMITED Diagnosis/ICD: Other specified postprocedural states-Z98.890 Indication: ?s/p LAAO CPT Codes: ? Echo Limited-86475 Patient History: Pertinent History: A-fib, HTN, HLD, [...] ?60 % LV EF Reported: 60 % [id number] Andrey Gibbs DO Electronically signed on 09/26/2024 at 1:03:57 PM Final Procedure Note Andrey Gibbs DO - 09/26/2024 [place] [address] TRANSTHORACIC ECHOCARDIOGRAM REPORT Patient Name: DANIEL Cummings LUCERO Rutherford Physician: [id number] Gibbs DO Study Date: 09/26/2024 Ordering Provider: [id number] LIM MRN/PID: [id number] Fellow: Nurse: Date of /Age: 12 1950 Powder Loader: Dexter herman RDCS, RVT Gender Assigned at Additional Staff: : Height: 167.64 cm Admit Date: 09/26/2024 Weight: 100.70 kg Admission Status: Outpatient BSA / BMI: 2.09 m2 / 35.83 Department Location: CathLab kg/m2 Blood Pressure: 166 /92 mmHg Study Type: TRANSTHORACIC ECHO (TTE) LIMITED Diagnosis/ICD: Other specified postprocedural states-Z98.890 Indication: s/p LAAO CPT Codes: Echo Limited-93076 Patient History: Pertinent History: A-fib, HTN, HLD, [...] 60 % LV EF Reported: 60 % 14837 Andrey Gibbs DO Electronically signed on 09/26/2024 at 1:03:57 PM Final Authorizing ProviderResult TypeResult StatusLelo Lim SALES REPRESENTATIVE DOOR TO DOOR-CNPCV ECHO PROCEDURESFinal ResultPerforming OrganizationAddressCity/State/ZIP CodePhone Number SYNGO * LAAO (LEFT ATRIAL APPENDAGE OCCLUSION) (09/26/2024 10:29 AM EDT)Specimen (Source)Anatomical Location / LateralityCollection Method / VolumeCollection TimeReceived Time09/26/2024 8:46 AM EDT Narrative SYNGO - 09/26/2024 11:37 AM EDT [facility], Office Systems Technology Instructor ? [address] [place] [address] ? [place] [address] Cardiovascular Catheterization Report Patient Name: ?DANIEL BARKER ?Performing Physician: ??[id number] Javan ?Elpidio MUNOZ Study Date: ?09/26/2024 ?Verifying Physician: ?? [id number] Javan ?Elpidio MUNOZ MRN/PID: ? [id number] ?Live Truck Technician/Co-Scrub: Accession#: ?[id number] ?Ordering Provider: ? [id number] JAVAN B ?ELPIDIO Date of /Age: 12 1950 / 74 years Live Truck Technician: Gender: ?M ? Fellow: ?Raghavendra Mason ?Karen [...] into the left atrium. Next, a 6 Taiwanese angled pigtail was advanced through the delivery [...] CPT Codes: Perc left atrial appendage closure (LAAC)-07091 75168 Javan Magallanes MD Performing Physician Final Procedure Note Javan Magallanes MD - 09/26/2024 [facility], Office Systems Technology Instructor [address] [place] [address] Cardiovascular Catheterization Report Patient Name: DANIEL Cummings LUCERO Performing Physician: [id number] Holley Study Date: 09/26/2024 Verifying Physician: Viraj Holley MRN/PID: [id number] Live Truck Technician/Co-Scrub: Ordering Provider: VIRAJ MAGALLANES Date of /Age: 12 1950 / 74 years Live Truck Technician: Gender: M Fellow: Fabian Knott Surgeon: Study: [...] into the left atrium. Next, a 6 Taiwanese angled pigtail wasadvanced through the delivery sheath [...] CPT Codes: Perc left atrial appendage closure (LAAC)-70871 87740 Javan Magallanes MD Performing Physician Final Authorizing ProviderResult TypeResult StatusVinbeti Magallanes MDCV CARDIAC CATH PROCEDURESFinal ResultPerforming OrganizationAddressCity/State/ZIP CodePhone Number SYNGO * (ABNORMAL) ACTIVATED CLOTTING TIME LOW (09/26/2024 9:50 AM EDT)ComponentValue Ref RangeTest MethodAnalysis TimePerformed AtPathologist SignaturePOCT Activated Clotting Time Low Ltmww613(H)83 - 199 sec09/26/2024 10:02 AM EDT [facility] LABComment: Target ACT range will vary based on the patient population, clinical status, and surgical intervention occurring. Specimen (Source)Anatomical Location / LateralityCollection Method / Volume Collection TimeReceived TimeBloodVenous blood specimen / Iasusts4109/26/2024 9:50 AM EDT09/26/2024 10:02 AM EDT Narrative Authorizing ProviderResult TypeResult StatusVinicius Johnnie PRAKASH POINT OF CARE TEST DOCKED DEVICE UNSOLICITED RESULTSFinal ResultPerforming Organization AddressCity/State/ZIP CodePhone Number [facility] [address] [place], [place] [id number] * TRANSTHORACIC ECHO (TTE) LIMITED (09/26/2024 8:52 AM EDT)ComponentValueRef RangeTest MethodAnalysis TimePerformed AtPathologist SignatureLV EF60%SYNGO Specimen (Source)Anatomical Location / LateralityCollection Method / Volume Collection TimeReceived Time09/26/2024 8:38 AM EDT Narrative SYNGO - 09/26/2024 9:12 AM EDT ? [place] [address] TRANSTHORACIC ECHOCARDIOGRAM REPORT Patient Name: ? DANIEL Zoila BARKER ?Reading Physician: ?[id number] Alfie ?LAMIN Powell Study Date: ? 09/26/2024 ?Ordering Provider: ?[id number] LELO M ?RAPHAEL MRN/PID: ?[id number] ?Fellow: Accession#: ? [id number] ?Nurse: Date of /Age: ??1950 / ? Powder Loader: ?Alex Irizarry ?years ? RDCS, RVT Gender Assigned at ??M ? Additional Staff: : Height: ? 167.64 cm ? Admit Date: ? 09/26/2024 Weight: ? 100.70 kg ? Admission Status: ? Outpatient BSA / BMI: ?2.09 m2 / 35.83 ? Department Location: ?? CathLab ?kg/m2 Blood Pressure: 157 /90 mmHg Study Type: ?TRANSTHORACIC ECHO (TTE) LIMITED Diagnosis/ICD: Unspecified atrial fibrillation-I48.91 Indication: ?pre LAAO CPT Codes: ? Echo Limited-77176 Patient History: Pertinent History: A-fib, HTN, HLD, [...] ?60 % LV EF Reported: 60 % [id number] Alfie Medina MD, [facility] Electronically signed on 09/26/2024 at 9:12:43 AM Final Procedure Note Alfie Medina MD - 09/26/2024 [place] [address] TRANSTHORACIC ECHOCARDIOGRAM REPORT Patient Name: DANIEL Cummings LUCERO [place]uther[place] Physician: [id number] Medina MD,FACC Study Date: 09/26/2024 Ordering Provider: [id number] LORI LIM MRN/PID: [id number] Fellow: Nurse: Date of /Age: 12 1950 Powder Loader: Dexter herman RDCS, RVT Gender Assigned at M Additional Staff: : Height: 167.64 cm Admit Date: 09/26/2024 Weight: 100.70 kg Admission Status: Outpatient BSA / BMI: 2.09 m2 / 35.83 Department Location: CathLab kg/m2 Blood Pressure: 157 /90 mmHg Study Type: TRANSTHORACIC ECHO (TTE) LIMITED Diagnosis/ICD: Unspecified atrial fibrillation-I48.91 Indication: pre LAAO CPT Codes: Echo Limited-42977 Patient History: Pertinent History: A-fib, HTN, HLD, [...] 60 % LV EF Reported: 60 % 60036 Alfie Medina MD, FACC Electronically signed on 09/26/2024 at 9:12:43 AM Final Authorizing ProviderResult TypeResult StatusLelo Lim SALES REPRESENTATIVE DOOR TO DOOR-CNPCV ECHO PROCEDURESFinal ResultPerforming OrganizationAddressCity/State/ZIP CodePhone Number SYNGO * Coagulation Screen (09/26/2024 8:11 AM EDT)ComponentValueRef RangeTest Method Analysis TimePerformed AtPathologist VbzamezooYbaaqmq21.09.8 - 12.4 seconds LAB COAGULATION METHOD 09/26/2024 8:40 AM [facility] LABINR1.10.9 - 1.1 LAB COAGULATION METHOD 09/26/2024 8:40 AM [facility] YGVoDEU8830 - 36 seconds LAB COAGULATION METHOD 09/26/2024 8:40 AM [facility] LABSpecimen (Source)Anatomical Location / LateralityCollection Method / VolumeCollection TimeReceived TimeBlood Venous blood specimen / UnknownVenipuncture / Mdpizfd7309/26/2024 8:11 AM EDT 09/26/2024 8:27 AM EDT [facility] - 09/26/2024 8:40 AM EDT The APTT is no longer used for monitoring Unfractionated Heparin Therapy. For monitoring Heparin Therapy, use the Heparin Assay. Authorizing ProviderResult TypeResult StatusLelo Lim [facility] BLOOD ORDERABLESFinal ResultPerforming OrganizationAddressCity/State/ZIP CodePhone Number [facility] [address] [place] [phone] * (ABNORMAL) CBC (09/26/2024 8:11 AM EDT)ComponentValueRef RangeTest Method Analysis TimePerformed AtPathologist SignatureWBC3.5(L)4.4 - 11.3 x10*3/uL LAB HEMATOLOGY METHOD 09/26/2024 8:30 AM [facility] LABnRBC0.00.0 - 0.0 /100 WBCs LAB HEMATOLOGY METHOD 09/26/2024 8:30 AM [facility] LABRBC4.42(L)4.50 - 5.90 x10*6/uL LAB HEMATOLOGY METHOD 09/26/2024 8:30 AM [facility] RHRZjmvdzbpdm00.713.5 - 17.5 g/dL LAB HEMATOLOGY METHOD 09/26/2024 8:30 AM [facility] FAEBfwcylarxt59.2(L)41.0 - 52.0 % LAB HEMATOLOGY METHOD 09/26/2024 8:30 AM [facility] RIJBAB4242 - 100 fL LAB HEMATOLOGY METHOD 09/26/2024 8:30 AM [facility] WMPNAX16.026.0 - 34.0 pg LAB HEMATOLOGY METHOD 09/26/2024 8:30 AM [facility] HENCTRU11.132.0 - 36.0 g/dL LAB HEMATOLOGY METHOD 09/26/2024 8:30 AM [facility] ZBCGME67.911.5 - 14.5 % LAB HEMATOLOGY METHOD 09/26/2024 8:30 AM [facility] INZGczatonav092285 - 450 x10*3/uL LAB HEMATOLOGY METHOD 09/26/2024 8:30 AM [facility] LABSpecimen (Source)Anatomical Location / LateralityCollection Method / VolumeCollection TimeReceived TimeBlood Venous blood specimen / UnknownVenipuncture / Tmiqzmg4909/26/2024 8:11 AM EDT 09/26/2024 8:27 AM EDT Narrative Authorizing ProviderResult TypeResult StatusLelo Mary Grace Raphael SANABRIAN-QuizFortuneLAB BLOOD ORDERABLESFinal ResultPerforming OrganizationAddressCity/State/ZIP CodePhone Number [facility] [address] [place] [address] * Type And Screen (09/26/2024 8:11 AM EDT)ComponentValueRef RangeTest Method Analysis TimePerformed AtPathologist SignatureABO TYPEA09/26/2024 9:09 AM EDT [facility] NVKVWEW0909/26/2024 9:09 [facility] B[facility] BANKANTIBODY CLILLPNLJ26/06/2025 9:09 AM [facility] BLOOD BANKSpecimen (Source)Anatomical Location / LateralityCollection Method / VolumeCollection TimeReceived Time BloodVenous blood specimen / UnknownVenipuncture / Rvasvtc6509/26/2024 8:11 AM EDT09/26/2024 8:27 AM EDT Narrative Authorizing ProviderResult TypeResult StatusLelo Mary Grace Raphael SALES REPRESENTATIVE DOOR TO DOOR-QuizFortuneLAB BLOOD BANK TEST ORDERABLESFinal ResultPerforming OrganizationAddressCity/State/ZIP CodePhone Number [facility]LOOD [facility] [address] [place] [address], * (ABNORMAL) Comprehensive Metabolic Panel (09/26/2024 8:11 AM EDT)Component ValueRef RangeTest MethodAnalysis TimePerformed AtPathologist SignatureGlucose 128(H)74 - 99 mg/dL LAB CHEMISTRY METHOD 09/26/2024 8:45 AM [facility] TAVCvdyzr820614 - 145 mmol/L LAB CHEMISTRY METHOD 09/26/2024 8:45 AM [facility] LABPotassium4.23.5 - 5.3 mmol/L LAB CHEMISTRY METHOD 09/26/2024 8:45 AM [facility] VSGSncaipxv99396 - 107 mmol/L LAB CHEMISTRY METHOD 09/26/2024 8:45 AM [facility] [facility] KCQKfevsodrnhu5247 - 32 mmol/L LAB CHEMISTRY METHOD 09/26/2024 8:45 AM [facility] LABAnion Gap9(L)10 - 20 mmol/L LAB CHEMISTRY METHOD 09/26/2024 8:45 AM [facility] LABUrea Acjmtgem845 - 23 mg/dL LAB CHEMISTRY METHOD 09/26/2024 8:45 AM [facility] LABCreatinine0.880.50 - 1.30 mg/dL LAB CHEMISTRY METHOD 09/26/2024 8:45 AM [facility] LABeGFR>90>60 mL/min/1.73m*2 LAB CHEMISTRY METHOD 09/26/2024 8:45 AM [facility] LABComment: Calculations of estimated GFR are performed using the 2020 CKD-EPI Study Refit equation without therace variable for the IDMS-Traceable creatinine methods. https://jasn.asnjournals.org/content//ASN.4257262584 Calcium9.38.6 - 10.3 mg/dL LAB CHEMISTRY METHOD 09/26/2024 8:45 AM [facility] LABAlbumin4.23.4 - 5.0 g/dL LAB CHEMISTRY METHOD 09/26/2024 8:45 AM [facility] LABAlkaline Tljpuarpsna8097 - 136 U/L LAB CHEMISTRY METHOD 09/26/2024 8:45 AM [facility] LABTotal Protein6.56.4 - 8.2 g/dL LAB CHEMISTRY METHOD 09/26/2024 8:45 AM [facility] ZSVUUR850 - 39 U/L LAB CHEMISTRY METHOD 09/26/2024 8:45 AM [facility] LABBilirubin, Total0.70.0 - 1.2 mg/dL LAB CHEMISTRY METHOD 09/26/2024 8:45 AM [facility] OPMBNP8795 - 52 U/L LAB CHEMISTRY METHOD 09/26/2024 8:45 AM [facility] LABComment:Patients treated with Sulfasalazine may generate falsely decreased results for ALT.Specimen (Source) Anatomical Location / LateralityCollection Method / VolumeCollection Time Received TimeBloodVenous blood specimen / UnknownVenipuncture / Unknown 09/26/2024 8:11 AM EDT09/26/2024 8:27 AM EDT Narrative Authorizing ProviderResult TypeResult StatusLelo Lim SALES REPRESENTATIVE DOOR TO DOOR-CNPLAB BLOOD ORDERABLESFinal ResultPerforming OrganizationAddressCity/State/ZIP CodePhone Number [facility] [address] [place] [address] from Last 3 Months Insurance [address] [place] [address] Advance Directives For more information, please contact: [phone] (Available ) * Full Code (Latest Code Status on File) Date ActivatedDate InactivatedComments09/26/2024 10:55 AMQuestionAnswerComments Plan of Care:* Code Status Discussion Completed Decision Maker:* Patient * Full Code Date ActivatedDate InactivatedComments09/26/2024 7:58 AM09/26/2024 10:55 AMQuestion AnswerCommentsPlan of Care:* Code Status Discussion Completed Decision Maker:* Patient Care Teams Team MemberRelationshipSpecialtyStart DateEnd Tio Rodríguez MD [address] [place] [id number] PCP - General10/09/20 Ryne Maravilla MD [address] [facility] [address], [address] [place] [address] CardiologistCardiology-Clinical Cardiac Electrophysiology08/10/24 Javan Magallanes MD [address] [facility], [facility] [address] [place] [address] CardiologistSCentra [facility]09/05/24
--- OUTSIDE RECORDS SUMMARY | 2024-12-18 22:50 | XMS_ITS | CCD ---
Author Organization [facility] CliniSyal Care Team Providers Care Plaster Caster Name Role Phone Noe Jean Unavailable Unavailable NONE, XXXX Unavailable Unavailable AnoopLia Unavailable Unavailable NONE, XXXX Unavailable Unavailable RICHARD RODRIGUEZ Unavailable Unavailable RICHARD RODRÍGUEZ Unavailable Unavailable UNKNOWN, PROVIDER Unavailable Unavailable RICHARD RODRÍGUEZ Unavailable Unavailable MAXIMILIANO BELLE Admitting Unavailable MAXIMILIANO BELLE Attending Unavailable RICHARD RODRÍGUEZ Primary Care Unavailable JADIEL REINA Consulting Unavailable MAXIMILIANO BELLE Consulting Unavailable Richard Rodríguez Unavailable Unavailable Unavailable Unavailable Unavailable Dali Salazar Unavailable Arnulfo Boyer Unavailable MD Richard Rodríguez Primary Care Provider [phone] MD Juan Belle Attending Provider MD Jose Angel Palmer Attending Provider Parish Vazquez Unavailable MD Richard Rodríguez Primary Care Provider [phone] MD Jose Angel Palmer Attending Provider MD Richard Rodríguez Attending Provider DO Milena Pires Referring Provider [phone] Jada De La Cruz Unavailable Eric Kemp Unavailable MD Richard Rodríguez Primary Care Provider [phone] MD Richard Rodríguez Attending Provider [phone] DO Milena Pires Referring Provider [phone] MD Juan Belle Attending Provider MD Jose Angel Palmer Attending Provider MD Eric Kemp Attending Provider Unavailable Unavailable MD Richard Rodríguez Primary Care Provider MD Jose Angel Palmer Attending Provider DIANA Vera-Bandar Greenberg Attending Provider Marco BourgeoisKenna Unavailable MD Richard Rodríguez Primary Care Provider MARY ANN Vera Attending Provider MD Jose Angel Palmer Attending Provider MD Maximiliano Belle Attending Provider Richard Rodríguez MD Primary Care Provider MD Richard Rodríguez Primary Care Provider [phone] MD Jose Angel Palmer Attending Provider MD Maximiliano Belle Attending Provider MD Mitch Sommers Attending Provider MD Richard Rodríguez Primary Care Provider MD Maximiliano Belle Attending Provider MD Jose Angel Palmer Attending Provider MD Richard Rodríguez Primary Care Provider MD Mitch Sommers Attending Provider [phone] MD Maximiliano Belle Attending Provider MD Jose Angel Palmer Attending Provider MD Richard Rodríguez Primary Care Provider MD Jose Angel Palmer Admit Provider MD Jose Angel Palmer Referring Provider MD Richard Rodríguez Primary Care Provider [phone] MD Maximiliano Belle Attending Provider [phone] G[place]NER [place] Admitting Unavailable [place]NER [place] Attending Unavailable RICHARD RODRÍGUEZ Primary Care Unavailable MD Richard Rodríguez Primary Care Provider MD Jose Angel Palmer Attending Provider MD Richard Rodríguez Primary Care Provider [phone] MD Maximiliano Belle Attending Provider MD Richard Rodríguez Primary Care Provider Ly, DO Tamika L Attending Provider MD Richard Rodríguez Primary Care Provider MD Maximiliano Belle Attending Provider Macros MUNOZ, Richard Primary Care Provider Maximiliano Belle MD Attending Provider [phone] Ly DO, Tamika L Attending Provider Richard Rodríguez MD Primary Care Provider [phone] Liu INSPECTOR MECHANICAL-REGULATORY CONSULTANT, Agnes A Unavailable Ana MUNOZ, Josephf Unavailable Maximiliano Belle MD Unavailable Viridiana MUNOZ, Eric Unavailable Richard Rodríguez MD Unavailable Marcos MUNOZ, Richard Primary Care Provider Maximiliano Belle MD Attending Provider [facility] RN, Tianna Unavailable Unavailable Viridiana MUNOZ, Eric Unavailable Marcos MUNOZ, Richard Primary Care Provider Maximiliano Belle MD Attending Provider Marcos MUNOZ, Richard Primary Care Provider Maximiliano Belle MD Attending Provider [phone] Ana MUNOZ, Josephf Unavailable Eric Kemp MD Unavailable Marcos MUNOZ, Richard Primary Care Provider Ly DO, Tamika L Attending Provider Richard Rodríguez MD Primary Care Provider Marcos MUNOZ, Richard Primary Care Provider [phone] Jose Angel Palmer MD Referring Provider [facility], Jada Attending Provider Tamika Pratt DO Attending Provider Ly , Tamika Greenberg Other Provider [phone] Erasmo MUNOZ, Maximiliano Attending Provider [phone] Taiwo MUNOZ, Gunner Unavailable [facility] RN, Tianna Unavailable Elpidio MUNOZ, Javan Blair Unavailable Marcos MUNOZ, Richard [facility] Care Provider [phone] Jose Angel Palmer MD Referring Provider [facility], Jada Attending Provider Destin Tobias MD Attending Provider Moncho Elliott PA-C Referring Provider Christelle PharmD, Estrada Attending Provider Christian Rodríguez MD, Richard Primary Care Provider Jose Angel Palmer MD Referring Provider [facility], [place]ada Attending Provider Destin Tobias MD Other Provider Marcos MUNOZ, Richard Primary Care Provider Tamika Brink DO Attending Provider [phone] JESSIE BRADLEY Attending Unavailable RISALILB, HAVEN R Referring Unavailable CAROL THURSTON Attending Unavailable RISALILB, HAVEN R Referring Unavailable WILL TAMEZ Attending Unavailable WILL TAMEZ Referring Unavailable MARILYNN WHARTON Attending Unavailable AGNES HATFIELD Attending Unavailable RISHAVEN SCHROEDER Attending Unavailable WILL TAMEZ Referring Unavailable WILL TAMEZ Referring Unavailable MARILYNN WHARTON Attending Unavailable MONCHO ELLIOTT Attending Unavailable MONCHO ELLIOTT Referring Unavailable MONCHO ELLIOTT Attending Unavailable [facility] Unavailable Ly, Tamika L Admitting Unavailable Ly, Tamika L Attending Unavailable [place], Richard Primary Care Unavailable Belle, Maximiliano Attending Unavailable Belle, Maximiliano Admitting Unavailable [facility] Unavailable Destin Hatfield Admitting Unavailable Destin Hatfield Attending Unavailable [facility] Unavailable Ly, Tamika L Admitting Unavailable Ly, Tamika L Attending Unavailable [facility] Primary Care Unavailable Ly, Tamika L Admitting Unavailable Ly, Tamika L Attending Unavailable Belle, Maximiliano Admitting Unavailable Belle, Maximiliano Attending Unavailable [place], Richard Primary Care Unavailable Belle, Maximiliano Attending Unavailable [facility] Unavailable Belle, Maximiliano Admitting Unavailable [place], Richard Primary Care Unavailable Belle, Maximiliano Attending Unavailable Belle, Maximiliano Admitting Unavailable [place] [facility] [place] Primary Care Provider Jose Angel Palmer MD Referring [facility] Provider Christian Rodríguez MD, [place] Primary Care Provider [phone] Marcos MUNOZ, [place] Primary Care Provider Jose Angel Palmer MD Referring [facility] Provider Gunner Shore MD Unavailable Javan Magallanes MD Unavailable [phone] ELPIDIO, JAVAN B Referring Unavailable [facility] Unavailable ELPIDIO, JAVAN B Admitting Unavailable ELPIDIO, JAVAN B Attending Unavailable [facility] Unavailable ELPIDIO, JAVAN B Referring Unavailable [facility] Unavailable ELPIDIO, JAVAN B Attending Unavailable [place] Referring Unavailable [facility] Unavailable JOSE ANGEL PALMER Attending Unavailable [facility] Unavailable JOSE ANGEL PALMER Attending Unavailable JOSE ANGEL PALMER Referring Unavailable [facility] Unavailable JOSE ANGEL PALMER Attending Unavailable JOSE ANGEL PALMER Referring Unavailable [facility] Unavailable [place] Attending Unavailable [facility] Unavailable [place] Referring Unavailable Allergies Allergy ClassificationReported Allergen(s)Allergy TypeDate of OnsetReaction(s) FacilityPenicillins (antibiotic) (2 sources)Penicillins; Translations: [PENICILLINS]Drug Hjfyxle47-62-6125Ouhpf, [facility] Repository (12 sources)Penicillins; Translations: [PENICILLINS]Drug allergy (disorder) 53-92-7571WbueoTazOhio State [facility] (3 sources)Penicillins; Translations: [Penicillins]Allergy to drug (finding) [facility] 250 DO Work Phone: (7 sources)PenicillinsDrug Gcsfrwm15-40-5833Zxldg, [facility] (20 sources)PenicillinsDrug Rylodfx02-92-0899Euyqp, Itching, Rash, Swelling, UnknownNOMS Healthcare Work Phone: (7 sources)PenicillinsDrug Cyhfawa71-86-4218Phaxf, [facility] (1 source)PenicillinsDrug allergy (disorder)31-84-0069UyvueufsiPremier Health [facility] Rep[facility] Medications Current Medications MedicationDrug Class(es)DatesSig (Normalized)Sig (Original)abatacept 250 mg injection (20 sources)Selective T Cell Costimulation ModulatorStart: 82-79-6999onmo 1000 mg intravenously every monthStart: 05-31-0900asws 1000 mg intravenously every monthAbatacept (With Maltose) Active 1000 ML IV .monthly June 01, 2023 12:00am FreeTextSimg monthly; Note: Source Status: Taking; Provider: Jono Elias ( )Start: 01-13-2019 End: 58-51-7439Nhgyxnxhi (Orencia) 50 mg/0.4 mL Syringe Discontinued 750 MG SUBCUT every month January 13, 20191:00am June 01, 2023 8:17amStart: 66-65-7041Xjlnusyao (Orencia) 50 mg/0.4 mL Syringe Active 1000 MG SUBCUT every month January 13, 2019 1:00amabatacept (Orencia) 125 mg/mL injection Inject under the skin. ActiveAbatacept (ORENCIA SC) Once monthly infusion ActiveOrencia 250 MG 1000mg monthly ActiveOrencia ActiveOrencia SOLN ONE TIME A MONTH DIRECTED. Quantity: 0 Refills: 0 Ordered: 08-May-2021 DO ActiveAcetaminophen (20 sources)Start: 04-95-6490bcaf 1 tablet by mouth every six hours as needed acetaminophen (Tylenol) tablet 650 mgStart: 65-75-2957tqzo 2 tablets by mouth every twelve hours as needed for painStart: 52-12-8393tmaf 1300 mg by mouth every twelve hoursAcetaminophen Active 1300 MG PO Q12H June 02, 2022 12:00am acetaminophen (Tylenol 8 Hour Arthritis Pain) 650 MG ER tablet every 12 (twelve) hours Activeacetaminophen (TYLENOL PO) Take 625 mg by mouth if needed. Active take 2 tablets by mouth twice daily as neededTylenol 8 Hour Arthritis Pain 650 MG 2 tablets as needed Orally twice daily Activeacetaminophen (TYLENOL PO) Take 625 mg by mouth if needed. 0 Activetake 1 tablet by mouth four times daily as neededAcetaminophen ER 650 MG Oral Tablet Extended Release TAKE 1 TABLET 4 TIMES DAILY NEEDED. Quantity: 0 Refills: 0 Ordered: 15-Oct-2022 DO ActiveAirDuo RespiClick 113/14 (20 sources)AirDuo RespiClick 113/14 Activeaspirin 81 mg chewable tablet (20 sources)Platelet Aggregation Inhibitor, Nonsteroidal Anti-inflammatory Drug Start: 23-56-2357fenrrsi 81 mg chewable tablet Indications: Unspecified atrial fibrillation (Multi) , Post-operativestate Chew and swallow 1 tablet (81 mg) once daily. Please start Aspirin in 3 months the day after you stop Warfarin. Do not fill before December 26, 2024. 12/26/2024 ActiveStart: 31-54-3734yjxbylh 81 mg chewable tablet Indications: Unspecified atrial fibrillation (Multi) , Post-operativestate Chew and swallow 1 tablet (81 mg) once daily. Please start Aspirin in 3 months the day after you stop Warfarin. Do not fill before December 26, 2024. 12/26/2024 ActiveStart: 67-51-8663wuxpzob 81 mg chewable tablet Indications: Unspecified atrial fibrillation (Multi) , Post-operativestate Chew and swallow 1 tablet (81 mg) once daily. Please start Aspirin in 3 months the day after you stop Warfarin. Do not fill before December 26, 2024. 12/26/2024 ActiveStart: 09-26-2024 End: 49-83-6444kzaz 324 mg by mouth dxzs146 mg, oral, Once, On Tue09/26/24 at 0815, For 1 dose, PreprocedureStart: 03-23-2018 End: 95-86-5269mfbs 1 tablet by mouth once dailyAspirin (Aspir-81) 81 mg Tablet,Delayed Release (Dr/Ec) Discontinued 81 MG PO Daily March 23, 2018 1:00am January 16, 2019 4:50pmatorvastatin 10 mg oral tablet (20 sources)HMG-CoA Reductase InhibitorStart: 03-23-2018 End: 98-52-7218pkzs 1 tablet by mouth once daily at bedtimebaclofen 10 mg oral tablet (18 sources)gamma-Aminobutyric Acid-ergic AgonistStart: 09-11-2024 End: 89-02-9863nuef 1 tablet by mouth once daily at bedtime as needed for muscle spasmsbudesonide 3 mg delayed release oral capsule (3 sources)CorticosteroidStart: 97-61-8863ofaf 3 capsules by mouth every twenty- four hoursBudesonide 3 MG 3 capsules Orally Once a day for 30 day(s) Aug, Activeclotrimazole 10 mg/ml topical cream (20 sources)Azole AntifungalStart: 89-42-0604ghsbolbwxvog (Lotrimin) 1 % cream Indications: rash to bilat arms/legs Apply 1 application topically in the morning and 1 application before bedtime. 01/03/2024 Activedabigatran etexilate 150 mg oral capsule (5 sources)Start: 01-13-2024 End: 71-93-2935ohje 1 capsule by mouth twice dailydabigatran etexilate (Pradaxa) 150 mg capsule Indications: Persistent atrial fibrillation (Multi) Take 1 capsule (150 mg) by mouth 2 times a day. Do not crush or chew. 180 capsule 2 01/13/2024 08/01/2024 Discontinued ()ferrous gluconate 324 mg oral tablet (20 sources)Start: 30-62-4897yeni 1 tablet by mouth once daily at bedtimeStart: 68-02-4220wvox 1 tablet by mouth once daily at bedtimeFerrous Gluconate Active 1 TAB PO Daily at bedtime July 09, 2019 12:00amhydroCHLOROthiazide 25 mg oral tablet (20 sources)Thiazide DiureticStart: 05-21-2021 End: 37-59-9839bcnc 1 tablet by mouth once daily in the morningStart: 03-23-2018 End: 78-47-5151xzud 1 tablet by mouth once dailyHydrochlorothiazide 25 mg tablet Discontinued 25 MG PO Daily March 23, 2018 1:00am January 16, 2019 4:50pmhydroxychloroquine sulfate 200 mg oral tablet (20 sources)Antimalarial, Antirheumatic AgentStart: 69-93-3900qmnr 1 tablet by mouth twice daily3 ml insulin glargine 100 unt/ml pen injector (20 sources)Insulin AnalogStart: 79-33-7147ucgisoe glargine (Basaglar KwikPen) 100 UNIT/ML pen Indications: Type 2 diabetes mellitus with diabetic neuropathy, with long-term current use of insulin ([facility]) inject 12 units subcutaneously once daily 15 mL 5 06/20/2024 ActiveStart: 29-22-9005Odtce: 32-23-8759jmfrprh glargine (Basaglar KwikPen) 100 UNIT/ML pen Indications: Type 2 diabetes mellitus with diabetic neuropathy, with long-term current use of insulin ([facility]) inject 12 units subcutaneously oncedaily 4 mL 5 12/12/2023 Active Start: 06-02-2022 End: 62-72-1912Szsaxqg Glargine (Basaglar Kwikpen U-100 Insulin) 100 unit/mL (3 mL) insulin pen Discontinued 12 UNIT SUBCUT Every morning June 02, 2022 12:00am October 27, 2022 2:54pminject 12 [IU] by subcutaneous injection once insulin glargine (Lantus U-100 Insulin) 100 unit/mL injection Inject 12 Units under the skin if needed. Take as directed per insulin instructions. Active Insulin Glargine 100 UNIT/ML 12 units as directed Subcutaneous as needed Active Insulin Glargine 100 UNIT/ML 12 units as directed Subcutaneous as needed Active insulin isophane, human 100 unt/ml injectable suspension (10 sources)3 ml insulin lispro 100 unt/ml cartridge (20 sources)Insulin AnalogStart: 93-41-3784Oogaw: 22-81-2261Wepvpcc Lispro (Humalog U-100 Insulin) 100 unit/mL Cartridge Active 1 sliding scale dose SUBCUT Useas Directed October 27, 2022 12:00am End: 83-74-2124eygrqqz lispro (HumaLOG) 100 unit/mL injection Inject under the skin once daily. Take as directed per insulin instructions. Activeinsulin lispro (HumaLOG) 100 UNIT/ML injection Inject under the skin in the morning and at noon andin the evening. Inject with meals. Activeinsulin lispro (HumaLOG) 100 UNIT/ML injection Inject under the skin 3 (three) times a day with meals Active HumaLOG 100 UNIT/ML as directed Injection as needed ActiveHumaLOG 100 UNIT/ML as directed Injection as needed Activeinsulin, regular, human 100 unt/ml injectable solution (10 sources)Insulinleflunomide 20 mg oral tablet (20 sources)Antirheumatic AgentStart: 58-57-4474uybe 1 tablet by mouth once daily at bedtimeloperamide hydrochloride 2 mg oral tablet (5 sources)Opioid Agonist End: 85-59-2238lvcxpgktsf (Imodium A-D) 2 MG tablet Take by mouth 4 (four) times a day as needed for diarrhea 03/07/2024 Discontinuedlosartan potassium 100 mg oral tablet (20 sources)Angiotensin 2 Receptor BlockerStart: 05-21-2021 End: 57-53-8070vydq 1 tablet by mouth once dailylosartan (Cozaar) 100 mg tablet Indications: Essential hypertension Take 1 tablet (100 mg) by mouthonce daily. 90 tablet 3 10/23/2024 10/23/2025 ActiveStart: 03-23-2018 End: 92-16-8990ttgs 2 tablets by mouth once dailyLosartan 50 mg tablet Discontinued 100 MG PO Daily March 23, 2018 1:00am May 21, 2021 10:17am Start: 03-23-2018 End: 76-97-3367zqsd 100 mg by mouth once dailyLosartan Discontinued 100 MG PO Daily March 23, 2018 1:00am May 21, 2021 10:17ammelatonin 10 mg oral tablet (20 sources)Start: 02-03-2023 End: 28-94-1545hvpu 1 tablet by mouth at bedtime as needed for sleeptake 2 tablets by mouth once daily at bedtimemelatonin 10 mg tablet Take 2 tablets (20 mg) by mouth once daily at bedtime. ActivemetFORMIN hydrochloride 500 mg oral tablet (20 sources)BiguanideStart: 01-18-2024 End: 08-49-1331zoxr 1 tablet by mouth once dailymetFORMIN (Glucophage) 500 mg tablet Take 1 tablet (500 mg) by mouth once daily. 01/18/2024 01/17/2025 Active Start: 05-21-2021 End: 63-37-5689epoj 1 tablet by mouth once daily at bedtimeMetformin 500 mg tablet Discontinued 500 MG PO Daily at bedtime May 21, 2021 10:24am August 10:11amStart: 01-16-2019 End: 00-97-7538hcvk 1 tablet by mouth twice dailyMetformin 500 mg tablet Discontinued 500 MG PO Twice daily 60 January 16, 2019 1:00am May 21, 2021 10:25amStart: 03-23-2018 End: 12-90-7989odoy 1 tablet by mouth twice dailyMetformin 500 mg tablet extended release 24 hr Discontinued 500 MG PO Twice daily March 23, 2018 1:00am January 16, 2019 4:50pmtake 1 tablet by mouth once dailymetFORMIN HCl ER 500 MG 1 tab Oral qd for 90 days Activeomeprazole 40 mg delayed release oral capsule (20 sources)Proton Pump InhibitorStart: 04-01-2023 End: 50-48-9353vore 1 capsule by mouth once dailyomeprazole (PriLOSEC) [address] capsule Indications: Gastroesophageal reflux disease without esophagitis Take 1 capsule (40 mg) by mouth Daily 90 capsule 3 03/07/2024 ActiveStart: 03-23-2018 Omeprazole Magnesium (Prilosec Otc) 20 mg Tablet,Delayed Release (Dr/Ec) (20 sources)Start: 38-22-7008Ntpcqczfio Magnesium (Prilosec Otc) 20 mg Tablet,Delayed Release (Dr/Ec) Active 40 MG PO Every morning March 23, 2018 12:00amStart: 03-31-1941Qkslgpxawr Magnesium (Prilosec Otc) 20 mg Tablet,Delayed Release (Dr/Ec) Active 40 MG PO Every morning March 23, 2018 1:00am Ondansetron (1 source)Serotonin-3 Receptor AntagonistStart: 04-02-9681pcki 1 tablet by mouth every eight hours as neededondansetron (Zofran) tablet 4 mgOneTouch Ultra Blue - (10 sources)OneTouch Ultra Blue - use with One touch Ultra 2 meter SQ tid qac and HS (QID) for 90 day(s) Activeoxygen (O2) therapy (1 source)Start: 11-76-3573fekhhtifbz, Continuous - O2/gases, oxygen, Starting on Tue09/26/24 at 1053, Wean oxygen therapy as tolerated., Device: Nasal Cannula, Rate in liters per minute: 2 LPM, Keep O2 Sat Above: 92%predniSONE 5 mg oral tablet (20 sources)Start: 48-93-2766Twvrj: 03-23-2018 End: 78-13-4135ffaw 1 tablet by mouth once dailyPrednisone 5 mg Tablet Discontinued 1 TAB PO Daily March 23, 2018 1:00am January 13, 2019 2:55am take 1 tablet by mouth twice dailypredniSONE 5 MG Oral Tablet TAKE 1 TABLET TWICE DAILY. Quantity: 0 Refills: 0 Ordered: 08-May-2021 DO Active Semaglutide,0.25 or 0.5MG/DOS, (Ozempic, 0.25 or 0.5 MG/DOSE,) 2 MG/3ML solution pen-injector (2 sources)Start: 10-18-2024 End: 72-80-7246newzjt 0.25 mg by subcutaneous injection every week, then inject 0.5 mg by subcutaneous injection every weekSemaglutide,0.25 or 0.5MG/DOS, (Ozempic, 0.25 or 0.5 MG/DOSE,) 2 MG/3ML solution pen-injector Indications: Type 2 Diabetes Mellitus Inject 0.25 mg under the skin 1 (one) time per week for 28 days, THEN 0.5 mg 1 (one) time per week for 14 days. 3 mL 10/18/2024 11/29/2024 ActivetraMADol hydrochloride 50 mg oral tablet (1 source)Opioid AgonistStart: 91-25-0940yvtc 1 tablet by mouth every six hours as cjredd09 mg, oral, Every 6 hours PRN, pain moderate (4-6), first line, Starting on Tue09/26/24 at 1053, Ifordered PRN for pain, nurse is permitted to administer this medication for higher pain scores basedon patient preference? Yeswarfarin sodium 4 mg oral tablet (20 sources)Vitamin K AntagonistStart: 07-17-2024 End: 40-07-7864etvbwida (Coumadin) 4 mg tablet Indications: Unspecified atrial fibrillation (Multi) Take 1 tablet (4 mg) by mouth see administration instructions. Tuesday, and Tuesday: 6 mg. Tuesday, Tuesday, Tuesday, Tuesday: 8 mg. Resume Warfarin 09/26/2024. Continue Warfarin for 3 months post Watchmanand until cleared to STOP after your post Watchman CT. 09/26/2024 Active Start: 62-82-0422zcuc 6 mg by mouth every month at bedtimeWarfarin Active 6 MG PO As Directed June 02, 2022 12:00am takes 6mg on Mo & Th @HSStart: 43-05-2117xoer 8 mg by mouth at bedtimeWarfarin Active 8 MG PO As Directed June 02, 2022 12:00am Takes 8 mg on Frey, , We, Fr, Sa @HSStart: 05-28-2021 End: 18-72-7239hchf 6 mg by mouth every month at bedtimeStart: 49-93-1477bgfc 2 tablets by mouth at bedtimeStart: 57-95-7442wpmj 7 tablets by mouth once daily Warfarin Sodium 4 MG Oral Tablet DIRECTED BY [facility] Quantity: 14 Refills: 0 Ordered: 28-May-2021 Jose Angel Palmer MD Start : 28-May-2021 Active will start Coumadin 4 mg daily. Further refills from [facility] Clinic End: 30-51-9135zork 1 tablet by mouth oncewarfarin (Coumadin) 6 mg tablet Take 1 tablet (6 mg) by mouth. Take as directed per After Visit Summary. Mon. And . 06/15/2023 Discontinued (Med List Cleanup)Warfarin Sodium 4 MG 1&1/2 tabs (6mg) Tue and and 2 tabs (8mg) all other days of the weekor UD by the Coumadin Clininic Orally Once a day Activetake 1 tablet by mouth every twenty- four hours Completed/Discontinued Medications MedicationDrug Class(es)DatesSig (Normalized)Sig (Original)AirDuo Digihaler 113- 14 MCG/ACT Inhalation Aerosol Powder Breath Activated (6 sources)AirDuo Digihaler 113-14 MCG/ACT Inhalation Aerosol Powder Breath Activated USE 1 TIME A DAY. Quantity: 0 Refills: 0 Ordered: 08-May-2021 DO [id number] 200 actuat albuterol 0.09 mg/actuat metered dose inhaler (20 sources)beta2-Adrenergic AgonistStart: 12-10-2022 End: 34-82-6109Nxilquudt Sulfate (Proair Hfa) 90 mcg/actuation Hfa Aerosol Inhaler Discontinued 90 MCG INHALATION 2 times daily as needed for SOB December 10, 2022 12:00am October 20, 2023 8:37am End: 02-87-2149rlwjefkoq 90 mcg/actuation inhaler Inhale 2 puffs if needed. 07/13/2023 Discontinued (Med List Cleanup)albuterol 90 mcg/actuation inhaler Inhale. As directed. 0 ActiveAlbuterol 90 MCG/ACT AERS USE DIRECTED. Quantity: 0 Refills: 0 Ordered: 08-May-2021 DO ActiveamLODIPine 10 mg oral tablet (20 sources)Dihydropyridine Calcium Channel BlockerStart: 03-23-2018 End: 11-40-1750spww 1 tablet by mouth once dailyAmlodipine 10 mg tablet Discontinued 10 MG PO Daily March 23, 2018 1:00am January 16, 2019 4:50pm apixaban 5 mg oral tablet (20 sources)Factor Xa InhibitorStart: 01-16-2019 End: 26-36-7901nqex 1 tablet by mouth twice dailyApixaban (Eliquis) 5 mg tablet Discontinued 5 MG PO Twice daily May 21, 2021 10:21am June 02, 2022 1:51pm24 hr dilTIAZem hydrochloride 240 mg extended release oral capsule (20 sources)Calcium Channel BlockerStart: 01-16-2019 End: 78-47-9073ysum 1 capsule by mouth once dailyDiltiazem Hcl 240 mg Capsule,Extended Release 24hr Discontinued 240 MG PO Daily January 16, 2019 1:00am May 21, 2021 10:24amflecainide acetate 50 mg oral tablet (20 sources)AntiarrhythmicStart: 06-02-2022 End: 93-89-1121anhs 1 tablet by mouth twice dailyFlecainide 50 mg Tablet Discontinued 50 MG PO Twice daily June 02, 2022 12:00am December 10, 2022 4:19pmtake 1 tablet by mouth every twelve hoursFlecainide Acetate 50 MG 1 tablet Orally every 12 hrs ActiveFluticasone Propion-Salmeterol (20 sources)Corticosteroid, beta2-Adrenergic AgonistStart: 06-02-2022 End: 84-43-0054Ftpifedotmf Propion-Salmeterol (Advair Diskus) 250-50 mcg/dose Blister With Device Discontinued 1 INH INHALATION Twice daily June 01, 2022 11:00pm September 01, 2023 9:12amStart: 06-02-2022 End: 65-11-0816Icvktgzotgx Propion-Salmeterol (Advair Diskus) 250-50 mcg/dose Blister With Device Discontinued 1 INH INHALATION Twice daily June 02, 2022 12:00am September 01, 2023 10:12amStart: 95-46-4469Dibdxzcalfr Propion-Salmeterol (Advair Diskus) 250-50 mcg/dose Blister With Device Active 1 INH INHALATION Twice daily June 01, 2022 11:00pmStart: 27-46-0536Uukoiszidef Propion- Salmeterol (Advair Diskus) 250-50 mcg/dose Blister With Device Active 1 INH INHA LATION Twice daily June 02, 2022 12:00amStart: 05-21-2021 End: 86-39-3544Wnzbevpcjry Propion-Salmeterol (Airduo Respiclick) 113-14 mcg/actuation Aerosol Powdr Breath Activated Discontinued 1 INH INHALATION Daily May 21, 2021 12:00am June 02, 2022 1:51pm End: 22-72-9523eleb 1 puff(s) by inhalation twice dailyfluticasone propion- salmeteroL (Advair Diskus) 250-50 mcg/dose diskus inhaler Inhale 1 puff 2 timesa day. As directed 01/13/2024 Discontinued (Therapy completed)take 1 puff(s) by inhalation twice dailyfluticasone propion-salmeteroL (Advair Diskus) 250-50 mcg/dose diskus inhaler Inhale 1 puff 2 timesa day. As directed Activetake 1 puff(s) by inhalation twice dailyAdvair Diskus 250-50 MCG/ACT 1 puff Inhalation Twice a day Activetake 1 puff(s) by inhalation twice dailyfluticasone propion- salmeteroL (Advair Diskus) 250-50 mcg/dose diskus inhaler Inhale 1 puff 2 timesa day. As directed 0 Activetake 1 puff(s) by inhalation every twelve hoursAdvair Diskus 250-50 MCG/DOSE AEPB INHALE 1 PUFF EVERY 12 HOURS. Quantity: 0 Refills: 0 Ordered: 15-Oct-2022 DO ActiveInsulin Aspart U-100 (Novolog Flexpen U-100 Insulin) 100 unit/mL (3 mL) insulin pen (20 sources)Start: 05-21-2021 End: 07-00-9906Meupzhg Aspart U-100 (Novolog Flexpen U-100 Insulin) 100 unit/mL (3 mL) insulin pen Discontinued 0 UNIT SUBCUT Before meals and at bedtime May 21, 2021 10:21am October 27, 2022 2:54pm Please contact the information source for Protocol details.Start: 05-21-2021 End: 78-55-3562Jaqpeks Aspart U-100 (Novolog Flexpen U-100 Insulin) 100 unit/mL (3 mL) insulin pen Discontinued 0 UNIT SUBCUT Before meals and at bedtime May 21, 2021 9:21am October 27, 2022 1:54pm Please contact the information source for Protocol details.Start: 05-21-2021 End: 80-64-2234Aavudeh Aspart U-100 (Novolog Flexpen U-100 Insulin) 100 unit/mL (3 mL) insulin pen Discontinued 0 UNIT SUBCUT Before meals and at bedtime May 21, 2021 9:21am October 27, 2022 1:54pmStart: 05-21-2021 End: 45-52-5145Wdeprcr Aspart U-100 (Novolog Flexpen U-100 Insulin) 100 unit/mL (3 mL) insulin pen Discontinued 0 UNIT SUBCUT Before meals and at bedtime May 21, 2021 10:21am October 27, 2022 2:54pmStart: 42-02-7055Wgcsxco Aspart U- 100 (Novolog Flexpen U-100 Insulin) 100 unit/mL (3 mL) insulin pen Active 0 UNIT SUBCUT Before meals and at bedtime May 21, 2021 10:21amStart: 05-21-2021 Insulin Aspart U-100 (Novolog Flexpen U-100 Insulin) 100 unit/mL (3 mL) insulin pen Active 0 UNIT SUBCUT As Directed May 21, 2021 9:21amStart: 05-21-2021 Insulin Aspart U-100 (Novolog Flexpen U-100 Insulin) 100 unit/mL (3 mL) insulin pen Active 0 UNIT SUBCUT As Directed May 21, 2021 10:21amInsulin Aspart U- 100 (Novolog Flexpen U-100 Insulin) 100 unit/mL (3 mL) Insulin Pen (20 sources)Start: 01-16-2019 End: 94-07-3481odkxbm 8 [IU] by subcutaneous injection once at mealtimeInsulin Aspart U-100 (Novolog Flexpen U-100 Insulin) 100 unit/mL (3 mL) Insulin Pen Discontinued 8 UNIT SUBCUT 3x/Day with meals January 16, 2019 12:00am May 21, 2021 9:21amStart: 01-16-2019 End: 27-69-2689ugvdfh 8 [IU] by subcutaneous injection once at mealtimeInsulin Aspart U-100 (Novolog Flexpen U-100 Insulin) 100 unit/mL (3 mL) Insulin Pen Discontinued 8 UNIT SUBCUT 3x/Day with meals January 16, 2019 1:00am May 21, 2021 10:21am3 ml insulin aspart, human 100 unt/ml pen injector (20 sources)Insulin AnalogStart: 05-21-2021 End: 74-05-5015Lscjlvs Aspart U-100 (Novolog Flexpen U-100 Insulin) 100 unit/mL (3 mL) insulin pen Discontinued 0 UNIT SUBCUT Before meals and at bedtime Protocol: If the corrective scale dose has been administeredwithin the past 4 hours, do not use corrective scale again unless otherwise directed Condition: 150-199 mg/dL Dose/Route: 1 unit Condition: 200-249 mg/dL Dose/Route: 2 unit Condition: 250-299 mg/dL Dose/Route: 3 unit Condition: 300-349 mg/dL Dose/Route: 4 unit Condition: 350-399 mg/dL Dose/Route: 5unit Condition: greater than or = 400 mg/dL Dose/Route: 6 unit May 21, 2021 10:21am October 27, 2022 2:54pm Please contact the information source for Protocol details.Start: 01-16-2019 End: 53-65-6144zpskfo 8 [IU] by subcutaneous injection once at mealtimeInsulin Aspart U-100 (Novolog Flexpen U-100 Insulin) 100 unit/mL (3 mL) Insulin Pen Discontinued 8 UNIT SUBCUT 3x/Day with meals January 16, 2019 1:00am May 21, 2021 10:21am3 ml insulin detemir 100 unt/ml pen injector (20 sources)Insulin AnalogStart: 10-27-2022 End: 65-70-2433Cjgulck Detemir U-100 (Levemir Flexpen) 100 unit/mL (3 mL) Insulin Pen Discontinued 13 UNIT SUBCUT As Directed October 27, 2022 12:00am April 06, 2023 5:00pm 13 units daily if taking 20mg of Prednisone Patient only takes when also taking prednisoneStart: 05-21-2021 End: 52-20-7645Evsozha Detemir U-100 (Levemir Flextouch U100 Insulin) 100 unit/mL (3 mL) insulin pen Discontinued 12 UNIT SUBCUT Daily May 21, 2021 10:21am June 02, 2022 1:54pmStart: 01-16-2019 End: 69-55-6980Qzwlsyg Detemir U-100 (Levemir Flextouch U100 Insulin) 100 unit/mL (3 mL) Insulin Pen Discontinued 24 UNIT SUBCUT Daily January 16, 2019 1:00am May 21, 2021 10:21am End: 81-67-7466PHUWLQL DETEMIR U-100 SUBQ Inject under the skin. As directed. 0 01/25/2023 Discontinued (Discontinued by another clinician)Insulin Detemir U-100 (Levemir Flexpen) 100 unit/mL (3 mL) Insulin Pen (20 sources)Start: 10-27-2022 End: 44-15-9983Jyiyelx Detemir U-100 (Levemir Flexpen) 100 unit/mL (3 mL) Insulin Pen Discontinued 13 UNIT SUBCUT As Directed October 27, 2022 12:00am April 06, 2023 5:00pm 13 units daily if taking 20mg of Prednisone Patient only takes when also taking prednisoneStart: 10-27-2022 End: 04-46-1923Zplnpfs Detemir U-100 (Levemir Flexpen) 100 unit/mL (3 mL) Insulin Pen Discontinued 13 UNIT SUBCUT As Directed October 26, 2022 11:00pm April 06, 2023 4:00pm 13 units daily if taking 20mg of Prednisone Patient only takes when also taking prednisoneStart: 63-23-8650Yvcdzph Detemir U-100 (Levemir Flexpen) 100 unit/mL (3 mL) Insulin Pen Active 13 UNIT SUBCUT As Dire cted October 26, 2022 11:00pm 13 units daily if taking 20mg of Prednisone Patient only takes when also taking prednisoneStart: 08-23-5873Auxnqiw Detemir U-100 (Levemir Flexpen) 100 unit/mL (3 mL) Insulin Pen Active 100 UNIT SUBCUT As Directed October 27, 2022 12:00amiohexol (OMNIPaque) 350 mg iodine/mL solution 75 mL (2 sources)Start: 12-04-2024 End: mL, intravenous, Once in imaging, Starting on Tue12/04/24 at 1512, For 1 doseStart: 09-14-2024 End: mL, intravenous, Once in imaging, Starting on Tue09/14/24 at 1440, For 1 doseLevemir FlexPen SOLN (8 sources)Levemir FlexPen SOLN INJECT SUBCUTANEOUSLY WITH EVENING MEAL OR AT BEDTIME DIRECTED. Quantity: 0Refills: 0 Ordered: 15-Oct-2022 DO ActiveLevemir FlexPen SOLN As needed. Quantity: 0 Refills: 0 Ordered: 08-May-2021 DO Active levoFLOXacin 750 mg oral tablet (20 sources)Quinolone AntimicrobialStart: 01-16-2019 End: 66-71-9771vjfk 1 tablet by mouth once dailyLevofloxacin (Levaquin) 750 mg tablet Discontinued 750 MG PO Daily 7 January 16, 2019 1:00am July 09, 2019 7:48ammetroNIDAZOLE 500 mg oral tablet (20 sources)Nitroimidazole AntimicrobialStart: 01-16-2019 End: 71-84-1892mxpp 1 tablet by mouth every six hoursMetronidazole (Flagyl) 500 mg tablet Discontinued 500 MG PO Q6H January 16, 2019 1:00am July 09, 2019 7:48amminocycline 100 mg oral capsule (20 sources)Tetracycline-class DrugStart: 03-23-2018 End: 23-19-4095Ywbzvsilrfk 100 mg capsule Discontinued March 23, 2018 1:00am January 13, 2019 2:53amStart: 03-23-2018 End: 97-26-2722Ucbagpetrom Discontinued March 23, 2018 1:00am January 13, 2019 2:53amNovoLOG FlexPen ReliOn SOPN (6 sources)NovoLOG FlexPen ReliOn SOPN INJECT SUBCUTANEOUSLY DIRECTED. Quantity: 0 Refills: 0 Ordered: 08-May-2021 DO ActiveoxyCODONE hydrochloride 5 mg oral tablet (20 sources)Opioid AgonistStart: 06-09-2022 End: 55-00-5757lhvg 5-10 mg by mouth every six hours as needed for painOxycodone 5 mg tablet Discontinued 5 - 10 MG PO Q6H as needed for Pain 30 June 09, 2022 December 10, 2022 4:20pmpantoprazole 40 mg delayed release oral tablet (3 sources)Proton Pump InhibitorStart: 07-13-2023 End: 11-62-4729emfy 1 tablet by mouth twice dailypantoprazole (ProtoNix) 40 mg EC tablet Indications: Persistent atrial fibrillation (Multi) Take 1 tablet (40 mg) by mouth 2 times a day. Do not crush, chew, or split. 60 tablet 07/13/2023 4Discontinued (Therapy completed)propafenone hydrochloride 225 mg oral tablet (20 sources)AntiarrhythmicStart: 10-26-2022 End: 77-48-5579jwfi 1 tablet by mouth every eight hoursPropafenone 225 mg Tablet Discontinued 225 MG PO Q8H October 27, 2022 12:00am February 03, 2023 12:45pmStart: 25-56-6732ppzv 1 tablet by mouth three times dailyPropafenone HCl - 150 MG Oral Tablet Take 1 tablet by mouth 3 times daily Quantity: 270 Refills: 3 Ordered: 17-Jun-2022 Jose Angel Palmer MD Start : 17-Jun-2022 Active replaces Flecainidetake 1 tablet by mouth once dailyPropafenone HCl - 225 MG Oral Tablet TAKE 1 TABLET EVERY 8 HOURS DAILY. Quantity: 270 Refills: 3 Ordered: 15-Oct-2022 DO Activetake 1 tablet by mouth every eight hoursPropafenone HCl 150 MG 1 tablet Orally every 8 hrs Activesulfamethoxazole 800 mg / trimethoprim 160 mg oral tablet (20 sources)Dihydrofolate Reductase Inhibitor Antibacterial, Sulfonamide AntimicrobialStart: 06-09-2022 End: 48-08-2833uqdn 1 tablet by mouth every twelve hoursSulfamethoxazole- Trimethoprim (Bactrim Ds) 800-160 mg tablet Discontinued 1 TAB PO Q12H June 09, 2022 12:00am October 27, 2022 2:51pmtamsulosin hydrochloride 0.4 mg oral capsule (20 sources)alpha-Adrenergic BlockerStart: 05-21-2021 End: 80-82-0131evws 1 capsule by mouth once daily at bedtimeTamsulosin 0.4 mg capsule Discontinued 0.4 MG PO Daily at bedtime May 21, 2021 12:00am June 02, 2022 1:57pm24 hr tofacitinib 11 mg extended release oral tablet (20 sources)Start: 03-23-2018 End: 51-22-5752Hjmuhbyhjzi (Xeljanz Xr) 11 mg Tablet Extended Release 24 Hr Discontinued March 23, 2018 1:00amNovember 2018 2:54amtriamcinolone acetonide 1 mg/ml topical cream (5 sources)CorticosteroidStart: 10-05-2023 End: 82-07-2472kilfadeoobevi (Kenalog) 0.1 % cream Indications: Other porphyria (CMS/HCC) Apply to affected areas on arms and legs, up to twice a day when flared, do not use one the face, groin, or underarms, 30 day supply 454 g 11 10/05/2023 03/02/2024 Discontinued (Other)zolpidem tartrate 5 mg oral tablet (20 sources)gamma-Aminobutyric Acid-ergic AgonistStart: 12-13-2022 End: 88-30-6494cxnk 1 tablet by mouth once daily at bedtime as needed for sleep Zolpidem 5 mg Tablet Discontinued 5 MG PO Daily at bedtime as needed for Sleep December 13, 2022 12:00am June 01, 2023 8:19am Problems Active Problems Problem ClassificationProblemDateDocumented DateEpisodic/ChronicAcute and unspecified renal failure (20 sources)Injury of kidney; Translations: [Acute kidney failure, unspecified] 10-56-7816HiyzrsjsOyfztfkw reactions (2 sources)Atopic dermatitis; Translations: [Other atopic dermatitis]06-05-2024 ChronicAsthma (20 sources)Asthma; Translations: [Asthma, unspecified]Onset: 09-03-2017 16-80-6268BngwnytVqtllawfj infection; unspecified site (20 sources)Bacteremia caused by Gram-positive bacteria; Translations: [Bacteremia]71-49-0353XnagbnotYutynzu dysrhythmias (20 sources)Persistent atrial fibrillation; Translations: [Atrial fibrillation] Onset: 438232-98-1752VfafvrlQhxxazit atherosclerosis and other heart disease (10 sources)Coronary artery spasm; Translations: [Coronary artery spasm]Chronic Deficiency and other anemia (20 sources)Iron deficiency anemia; Translations: [Iron deficiency anemia, unspecified]Onset: 328462-14-4608LkzjbqztHyxutqbv mellitus with complications (20 sources)Insulin treated type 2 diabetes mellitus; Translations: [Type 2 diabetes mellitus with diabetic neuropathy, unspecified]Onset: 09-07-2019 74-27-9762IdeybnaUxfpztbn mellitus without complication (20 sources)Diabetes mellitus; Translations: [Diabetes mellitus without mention of complication, type II or unspecified type, not stated as uncontrolled]Onset: 320497-28-1858IberjveUitacibbz of lipid metabolism (20 sources)Hyperlipidemia; Translations: [Other and unspecified hyperlipidemia] Onset: 381873-47-3832NmfxmfwFoydwmbngowxdz and diverticulitis (20 sources)Diverticulitis of gastrointestinal fohek06-31-5579KsktiauManqiyoyfo disorders (20 sources)Gastroesophageal reflux disease; Translations: [Gastro-esophageal reflux disease without esophagitis]Onset: 154282-75-2529ButykbhUjukxqnhk hypertension (20 sources)Essential hypertension; Translations: [Unspecified essential hypertension]Onset: 334331-62-8518WwpjdjdTylar and electrolyte disorders (20 sources)Metabolic acidosis; Translations: [Acidosis]38-38-6080Hkzfiqwx Gastrointestinal hemorrhage (20 sources)Melena; Translations: [Melena]Onset: 796503-35-8346Myezwcfg Hyperplasia of prostate (20 sources)Benign prostatic hypertrophy without outflow obstruction; Translations: [Benign prostatic hyperplasia without lower urinary tract symptoms]Onset: 527675-65-1673DcazakbZcpmdufsrtagl and screening for infectious disease (2 sources)Encounter for immunization; Translations: [Other specified vaccinations against streptococcus pneumoniae [pneumococcus]]40-97-5598Qmbobqks Malaise and fatigue (10 sources)Fatigue; Translations: [Fatigue]EpisodicMiscellaneous mental health disorders (20 sources)Primary insomnia; Translations: [Primary insomnia]Onset: 09-10-2020 92-13-0023OlveicdHapifbw (1 source)Onychomycosis; Translations: [Tinea unguium]63-72-0879Fzwwtctt Noninfectious gastroenteritis (20 sources)Microscopic colitis; Translations: [Microscopic colitis, unspecified]Onset: 08-27-2021 Resolved: 68-87-5514RusgjpjOehvmcghyvujg gastroenteritis (12 sources)Colitis; Translations: [Colitis]49-03-2693SzoxetsfVcqyyllcsxs chest pain (1 source)Chest pain, unspecified; Translations: [Chest pain, unspecified]Onset: 44-05-1610DwfxxvmqJzkablalvkhupk (2 sources)Osteoarthritis of right hip joint; Translations: [Unilateral primary osteoarthritis, right hip]46-65-5578WadtorrWynjy aftercare (1 source)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; Translations: [OTH SKILLED NURSING CURRENT DRUG THERAPY]Onset: 21-12-3411GqjhikbzUnscx aftercare (20 sources)Encounter for therapeutic drug level monitoringOnset: 06-10-2021 Resolved: 61-31-1642BtsapagoMapbr aftercare (20 sources)Long-term current use of anticoagulant; Translations: [care home (current) use of anticoagulants]Onset: 259964-82-1774EzxgfmbxDqwoc aftercare (6 sources)salvage determiner (current) use of anticoagulants; Translations: [Long-term (current) use of anticoagulants]Onset: 154030-66-1296GadyaaohAyram and unspecified benign neoplasm (10 sources)History of polyp of colon; Translations: [History of colon polyps] EpisodicOther circulatory disease (9 sources)Presence of other cardiac implants and grafts; Translations: [Other specified cardiac device in situ]Onset: 939873-55-8283PtzmpqcPkmnh circulatory disease (8 sources)History of atrial flutter; Translations: [Personal history of other diseases of the circulatory system]Onset: 976521-03-4644YjtcgzqpComgd connective tissue disease (10 sources)Musculoskeletal symptom; Translations: [Left arm weakness]Episodic Other connective tissue disease (2 sources)Disorder of hip; Translations: [Other symptoms and signs involving the musculoskeletal system]81-34-0031TeoepjquJgyrf connective tissue disease (1 source)Pain in both feet; Translations: [Pain in right foot]07-31-2024 EpisodicOther connective tissue disease (1 source)Bilateral bursitis of feet; Translations: [Other enthesopathy of right foot and ankle]13-24-6233NiomhsezNayqd connective tissue disease (2 sources)Other symptoms and signs involving the musculoskeletal system; Translations: [Other musculoskeletalsymptoms referable to limbs]09-11-2024 EpisodicOther lower respiratory disease (10 sources)Interstitial lung disease; Translations: [Interstitial lung disease] ChronicOther lower respiratory disease (3 sources)Shortness of breath; Translations: [SHORTNESS OF BREATH]Onset: 80-47-5297FxtitxzjNvoai lower respiratory disease (10 sources)Wheezing; Translations: [Wheeze]EpisodicOther nervous system disorders (20 sources)Metabolic encephalopathy; Translations: [Metabolic encephalopathy] 08-20-8294HmxklqqUeunr nervous system disorders (20 sources)Carpal tunnel syndrome of left wrist; Translations: [Carpal tunnel syndrome, left upper limb]93-68-8508UdovpysWkdou nervous system disorders (3 sources)Carpal tunnel syndrome, left upper limbChronicOther nervous system disorders (5 sources)Carpal tunnel syndrome; Translations: [Carpal tunnel syndrome, left upper limb]51-45-1436QguvsuaTlgsc nervous system disorders (16 sources)Chronic pain; Translations: [Other chronic pain]75-92-6906Yqtlfix Other nervous system disorders (1 source)Other chronic pain; Translations: [Other chronic pain]Onset: 91-10-1494WufmxegAhxpb non-traumatic joint disorders (10 sources)Joint pain; Translations: [Arthralgia]EpisodicOther non-traumatic joint disorders (2 sources)Hip pain; Translations: [Pain in right hip]26-55-4917HbdiwflvOeryz nutritional; endocrine; and metabolic disorders (8 sources)Obesity; Translations: [Obesity, unspecified]ChronicOther nutritional; endocrine; and metabolic disorders (20 sources)Body mass index 30+ - obesity; Translations: [Body mass index (BMI) 32.0-32.9, adult]Onset: 296281-73-0939OekbrqdAeulf nutritional; endocrine; and metabolic disorders (20 sources)Severe obesity; Translations: [Morbid (severe) obesity due to excess calories]Onset: 246196-94-3369YdqsdpeKapfx nutritional; endocrine; and metabolic disorders (2 sources)Obesity caused by energy imbalance; Translations: [Morbid (severe) obesity due to excess calories]00-40-7510UwnllveOgaen nutritional; endocrine; and metabolic disorders (8 sources)Porphyria; Translations: [Other porphyria]Onset: ChronicOther nutritional; endocrine; and metabolic disorders (6 sources)Disorder of porphyrin metabolism; Translations: [Unspecified porphyria]Onset: 850181-09-0949OaiwivxHgmiy nutritional; endocrine; and metabolic disorders (2 sources)Body mass index (BMI) 35.0-35.9, adult; Translations: [Body mass index (BMI) 35.0-35.9, adult]Onset: 97-21-2787NtprfjvHuync nutritional; endocrine; and metabolic disorders (2 sources)Body mass index (BMI) 37.0-37.9, adult; Translations: [Body mass index (BMI) 37.0-37.9, adult]Onset: 28-08-0905BwjnyabNlseu screening for suspected conditions (not mental disorders or infectious disease) (10 sources)Standard chest X-ray abnormal; Translations: [Abnormal chest xray] ChronicOther screening for suspected conditions (not mental disorders or infectious disease) (20 sources)Patient encounter status; Translations: [Encounter for screening for malignant neoplasm of colon]Onset: 165491-16-3902WdlqistqGxcvh skin disorders (1 source)Generalized hyperhidrosis; Translations: [Generalized hyperhidrosis] Onset: 88-90-0414HtfwyfldLpgou skin disorders (2 sources)Eruption; Translations: [Rash and other nonspecific skin eruption] 88-00-7820ChretkevUyirn skin disorders (2 sources)Skin tag; Translations: [Other hypertrophic disorders of the skin] 26-00-5730NumnavtfBkxpf skin disorders (1 source)Callosity; Translations: [Corns and callosities]99-47-6549Libsfllr Residual codes; unclassified (10 sources)Sleep apnea; Translations: [Sleep apnea NOS RAGHAV]ChronicResidual codes; unclassified (10 sources)Edema; Translations: [Edema, symptoms involving skin and other integumentary tissue]EpisodicResidual codes; unclassified (20 sources)Livedo reticularis; Translations: [Pallor]44-75-7524JqtazugnSaldeyjn codes; unclassified (2 sources)Tenderness ; Translations: [Pain, unspecified]17-00-7045Lcwtqaas Residual codes; unclassified (1 source)Postoperative state; Translations: [Other specified postprocedural states]58-08-9757FelgzbowJdeyrkpd codes; unclassified (2 sources)Other specified postprocedural states; Translations: [Other specified postprocedural states]Onset: 72-51-8557AvsqbbivUoliwzbudt arthritis and related disease (20 sources)Rheumatoid arthritis, unspecified; Translations: [Rheumatoid arthritis]Onset: 529112-56-0562JkvejvtBngejxkpwd (except in labor) (20 sources)Sepsis; Translations: [Sepsis, unspecified organism]01-13-2019 EpisodicSpondylosis; intervertebral disc disorders; other back problems (20 sources)Diffuse idiopathic skeletal hyperostosis of cervical spine; Translations: [Ankylosing hyperostosis [[place]], cervical region]Onset: 605664-31-1734SstdbhqKdjnmrsosyk; intervertebral disc disorders; other back problems (20 sources)Neck pain; Translations: [Cervicalgia]EpisodicUnclassified (2 sources)Chest pain, unspecified / R07.9(ICD-9)Onset: 23-61-8555Ppjhcgbnuzho (2 sources)Generalized hyperhidrosis / R61(ICD-9)Onset: 16-01-3073Nhtmtnnuypxy (8 sources)Other persistent atrial fibrillation; Translations: [Other persistent atrial fibrillation (Multi)]Onset: 50-42-2175Zajgnsurslgr (2 sources)Drug therapy kfagxlr43-63-3123Epsipvstzbfg (5 sources)Call Dr. Joes office to schedule a follow up appointment if you do not already have one scheduledViral infection (20 sources)Disease caused by 2019-nCoV; Translations: [COVID-19]10-27-2020 Episodic Past or Other Problems Problem ClassificationProblemDateDocumented DateEpisodic/ChronicBiliary tract disease (20 sources)Polyp of gallbladder; Translations: [Cholesterolosis of gallbladder] Onset: 844043-50-7331XuiazfseArutxdkasse deficiencies (20 sources)Cobalamin deficiency; Translations: [Deficiency of other specified B group vitamins]Onset: 445406-28-3728VihxmljaGemjz aftercare (20 sources)Drug therapy finding; Translations: [care home (current) use of anticoagulants]Onset: 623508-92-0919MudvjlvqVxcnq aftercare (19 sources)Long-term current use of insulin; Translations: [salvage determiner (current) use of insulin]Onset: 019778-10-4334WxwpddlkSesfc aftercare (2 sources)salvage determiner (current) use of insulin; Translations: [care home (current) use of insulin (Multi)]Onset: 48-38-2506TbnvpfqjGharq lower respiratory disease (20 sources)Dyspnea; Translations: [SOB (shortness of breath)]Onset: 01-25-2023 82-22-0916WousegmoHmxarbep codes; unclassified (11 sources)History of radiofrequency ablation operation for arrhythmia; Translations: [Other specified postprocedural states]Onset: EpisodicResidual codes; unclassified (3 sources)Insomnia; Translations: [Insomnia, unspecified]Onset: 09-10-2020 63-11-4903TictrigpUtltyssnr and history of mental health and substance abuse codes (20 sources)Ex-smoker; Translations: [Personal history of tobacco use]Onset: 602646-51-2952YqmnreovZwmcyly on above:Quit smoking 17 years ago 1 ppd; Unclassified (15 sources)Onset: 01-25-2023 Resolved: 939199-21-1286Qrghnbnctzor (4 sources)Weakness of both lower nwjpjohrqbj49-90-3567 Results Test NameValueInterpretationReference RangeFacilityCT post watchman full contraston [id number] by Soniya Antonio MD on 12/05/2024 9:36 AM EDT Interpreted By: Andrey Antonio, ADDENDUM: Technical: The following is to serve as an over-read for a contrast-enhanced cardiac CT, to evaluate the extravascular structures. Contiguous axial CT sections are performed from level the eliud to the upper abdomen following the bolus administration of 70 cc of intravenous Omnipaque 350. Findings: There is pleural and subpleural opacity in the left upper lobe laterally measuring 1.3 x 0.7 cm in diameter (image 21). There is no sign of pathologic lymph node enlargement. There is no pericardial or pleural effusion. Images through the upper abdomen are unremarkable. The visualized osseous structures are intact. Impression: 1.3 x 0.7 cm pleural and subpleural opacity in the left upper lobe laterally. The chronicity of these findings is indeterminate given there are no previous studies for comparison. Continued CT surveillance is recommended or further workup with PET imaging. Initially however, dedicated CT thorax with contrast is recommended. Critical Finding: See findings. Notification was initiated on 12/05/2024 at 9:35 am by Andrey Antonoi. (-YCF-) Instructions: See Findings. Signed by: Andrey Antonio 12/05/2024 9:36 AM -------- ORIGINAL REPORT -------- Dictation workstation: [id number] [facility] Hospital Work Phone: [phone]. Well seated left atrial appendage closure device without Whitley device leak. 2. No evidence of thrombus on the external surface/left atrial aspect of closure device. Reading Supervising Floorperson: Dr. Andrey Singh, Date: 12/05/2024 9:29 am Signed by: Andrey Singh 12/05/2024 9:31 AM Dictation workstation: [id number] By: Andrey Singh, STUDY: CT POST WATCHMAN FULL CONTRAST; 12/04/2024 3:35 pm INDICATION: Signs/Symptoms:POST WATCHMAN DEVICE SUSRVEILANCE FOR DEVICE RELATED THROMBUS AND PERIDEVICE LEAK. COMPARISON: None. ACCESSION NUMBER(S): [id number] ORDERING CLINICIAN: JAVAN MAGALLANES TECHNIQUE: Using multidetector [...] There is no pericardial effusion of thickening. [facility] MMAndrey Velazquez DO / Soniya Antonio MD - 12/05/2024 Interpreted By: Andrey Singh, STUDY: CT POST WATCHMAN FULL CONTRAST; 12/04/2024 3:35 pm INDICATION: Signs/Symptoms:POST WATCHMAN DEVICE SUSRVEILANCE FOR DEVICE RELATED THROMBUS AND PERIDEVICE LEAK. COMPARISON: None. ACCESSION NUMBER(S): [id number] ORDERING CLINICIAN: JAVAN MAGALLANES TECHNIQUE: Using multidetector CT technology, Loibto CT 64-slice scanner, axial, sequential imaging with [...] surface/left atrial aspect of closure device. Reading Supervising Floorperson: Dr. Andrey Singh, Date: 12/05/2024 9:29 am Signed by: Andrey Singh 12/05/2024 9:31 AM Dictation workstation: [id number] [facility] Work Phone: CT post watchman full contrastOrdered By: Soniya Antonio on 23-44-9035OxedtyzmpmNorwalk Memorial Hospital Work Phone: ct POST WATCHMAN FULL CONTRASTon 96-29-4532NR POST WATCHMAN FULL CONTRASTInterpreted By: Andrey Antonio, ADDENDUM: Technical: The following is to serve as an over-read for a contrast-enhanced cardiac CT, to evaluate the extravascular structures. Contiguous axial CT sections are performed from level the eliud to the upper abdomen following the bolus administration of 70 cc of intravenous Omnipaque 350. Findings: There is pleural and subpleural opacity in the left upper lobe laterally measuring 1.3 x 0.7 cm in diameter (image 21). There is no sign of pathologic lymph node enlargement. There is no pericardial or pleural effusion. Images through the upper abdomen are unremarkable. The visualized osseous structures are intact. Impression: 1.3 x 0.7 cm pleural and subpleural opacity in the left upper lobe laterally. The chronicity of these findings is indeterminate given there are no previous studies for comparison. Continued CT surveillance is recommended or further workup with PET imaging. Initially however, dedicated CT thorax with contrast is recommended. Critical Finding: See findings. Notification was initiated on 12/05/2024 at 9:35 am by Andrey Antonio. (-YCF-) Instructions: See Findings. Signed by: Andrey Antonio 12/05/2024 9:36 AM -------- ORIGINAL REPORT -------- Dictation workstation: [id number] Interpreted By: Andrey Singh, STUDY: CT POST WATCHMAN FULL CONTRAST; 12/04/2024 3:35 pm INDICATION: Signs/Symptoms:POST WATCHMAN DEVICE SUSRVEILANCE FOR DEVICE RELATED THROMBUS AND PERIDEVICE LEAK. COMPARISON: None. ACCESSION NUMBER(S): [id number] ORDERING CLINICIAN: JAVAN MAGALLANES TECHNIQUE: Using multidetector [...] surface/left atrial aspect of closure device. Reading Supervising Floorperson: Dr. Andrey Singh, Date: 12/05/2024 9:29 am Signed by: Andrey Singh 12/05/2024 9:31 AM Dictation workstation: [id number] Health Springfield Regional Medical CenterCT post watchman full contraston 46-29-3995Oiwwmbwti Study observation (narrative)[facility] Work Phone: Creatinineon 38-60-5116Keflniybjw [Mass/Vol]0.90 mg/dL Normal0.60-1.30UnMercy Health Anderson HospitalComment on above:Result Comment: Hydroxyurea can cause significant interference with creatinine measurement using the i-STAT device. An alternate method of creatinine measurement must be used in patients treated withhydroxyurea.Performed By: #### 2160-0 #### NURA ENGLE ([id number]) [facility] (ELYCT) [address] [place], [place] [address]Prppemljoe [Mass/Vol]on 85-69-5024Mwvumtnrauleph and review of laboratory resultsNoRegional Medical CenterPOCT eGFR90- PINF [facility] HospitalComment on above:Calculations of estimated GFR are performed using the 2020 CKD-EPI Study Refit equation without therace variable for the IDMS-Traceable Creatinine Methods. https://jasn.asnjournals.org/content/early/ASN.2220761534 [facility] HospitalGlomerular filtration rate90 mL/min/1.73m*2 Normal>=60UnMercy Health Anderson HospitalComment on above:Result Comment: Calculations of estimated GFR are performed using the 2020 CKD-EPI Study Refit ???equation without the race variable for the IDMS-Traceable Creatinine Methods. https://jasn.asnjournals.org/content/early/ASN.1127801327Fykeedqzx By: #### 2160-0 #### NURA ENGLE ([id number]) [facility] CT (ELYCT) [address] [place], [place] [address]JDGQ CREATININE AND GFRon 09-13-7504Zhwcffogri [Mass/Vol]0.90 mg/dL0.60 - 1.30 mg/dLSt. Anthony's Hospital on above: Hydroxyurea can cause significant interference with creatinine measurement using the i-STAT device.An alternate method of creatinine measurement must be used in patients treated with hydroxyurea.No Panel InformationOrdered By: Jada De La Cruz on 87-08-7362Udnkpyx INR (LAB)2.0[facility] HospitalNo Panel InformationOrdered By: Jada De La Cruz on 52-47-3027Pqejgvp INR (LAB)2.6 [facility] HospitalECG 12 [place] 52-80-8787Scywue sinus rhythm with borderline prolonged QTc interval with PACs and PVCsCPACSNorwalk Memorial Hospital Work Phone: No Panel InformationOrdered By: Sean Bourgeois on 86-45-6098Fjpcfsn INR (LAB)2.0[facility] HospitalACT Coag (Bld)on 92-63-1915Wajigllgtoryke and review of laboratory resultsAbnoOhioHealth Pickerington Methodist HospitalACTIVATED CLOTTING TIME LOWon 87-51-2003UTR Coag (Bld)305 [facility] on above:Target ACT range will vary based on the patient population, clinical status, and surgical intervention occurring. Activated clotting timeon 43-65-3209IBN Coag (Bld)305 qCnab94-499EyafozapgpSt. Mary's Medical Center on above:Result Comment: Target ACT range will vary based on the patient population, clinical status, and surgical intervention occurring.Performed By: #### 3184-9 #### NURA ENGLE ([id number]) [facility] ([facility]) [address] [place], [place] [address]Jfcib type and Indirect antibody screen panel (Bld)on 09-26-2024 ABO group Nom (Bld)[facility] CenterBlood group antibody screen QlNegativeUnGrant Hospital Ag Ql (Bld)PositiveMercy Health Anderson HospitalAB group Nom (Bld)A [facility] CenterComment on above:Performed By: #### 85310-5 #### ANAIBELIJUAN ANTONIO SHABBIR JUAREZ ([id number]) [facility] (ELYBB) [address] [place] [address] USBlood group antibody screen QlNegativeFulton County Health CenterComment on above:Performed By: #### 91791-9 #### [facility]ELITH [facility]GANSELECT [facility] ([id number]) [facility] (ELYBB) [address] [place] [address] USD Ag Ql (Bld)PositiveFulton County Health CenterComment on above:Performed By: #### 18323-6 #### ANAIBELIJUAN ANTONIO MEGANSELECT [facility] ([id number]) [facility] (ELYBB) [address] [place] [address] USCARDIAC CATHETERIZATION PROCEDUREon 93-13-9815LQRYLUZ CATHETERIZATION PROCEDUREAdventhealth Wesley Chapel, Utilities Service Investigator [address] [facility] [address] Cardiovascular Catheterization Report Patient Name: NEREDYA Cummings LUCERO Performing Physician: Christian Magallanes MD Study Date: 09/26/2024 Verifying Physician: Christian Magallanes MD MRN/PID: [id number] Supervising Floorperson/Co-Scrub: Ordering Provider: Christian MAGALLANES Date of /Age: 12 1950 / 74 years Supervising Floorperson: Gender: M Fellow: Raghavendra Jones MD Surgeon: Study: Left Atrial Appendage Closure Indications: [...] into the left atrium. Next, a 6 Bulgarian angled pigtail was advanced through the delivery sheath into the left atrial appendage and angiography was performed via the pigtail. We selected a 40 mm Watchman FLX pro closure device but we could not reach closure criteria, after reviewing both by ICE and angiography we sized the device again. We then selected a 35 mm Watchman FLX pro closure device and c onfirmed placement both by ICE and angiography. A 'tug test' was performed and confirmed stability.No color Doppler flow around the device was [...] the procedure was 30 mls. Specimens Removed: Number of specimen(s) removed: none. ____ CONCLUSIONS: 1. Successful LAAO closure with a 35 mm Watchman FLX pro device. ICD 10 Codes: Paroxysmal atrial fibrillation-I48.0 CPT Codes: Perc left atrial appendage closure (LAAC)-14795 61810 Javan Magallanes MD Performing Physician Final [facility] CenterCBC panel Auto (Bld) on 92-67-7152Qezoaahfuez distribution width (RBC) [Ratio]12.9 %11.5 - 14.5 % [facility] HospitalHematocrit (Bld) [Volume fraction]40.2 %Low41.0 - 52.0 %[facility] HospitalHemoglobin (Bld) [Mass/Vol]13.7 g/dL 13.5 - 17.5 g/dLNorwalk Memorial HospitalInterpretation and review of laboratory resultsAbnormalUCleveland Clinic Hillcrest HospitalH (RBC) [Entitic mass]31.0 pg26.0 - 34.0 pgNorwalk Memorial HospitalMCHC (RBC) [Mass/Vol] 34.1 g/dL32.0 - 36.0 g/dLVan Wert County HospitalV (RBC) [Entitic vol]91 fL80 - 100 fLUniParkview Health Montpelier HospitalNucleated RBC/100 WBC (Bld) [Ratio]0.0 %[facility] HospitalPlatelets (Bld) [#/Vol]164 10*3/uL [facility] HospitalRB (Bld) [#/Vol]4.42 10*6/[facility] HospitalWBC (Bld) [#/Vol]3.5 10*3/[facility] HospitalUnKettering Health TroyErythrocyte distribution width (RBC) [Ratio]12.9 %Msfcvz47.5-14.5[facility] Private HospitalComment on above:Performed By: #### 17437-4 #### QIIBPOOL ENGLE ([id number]) [facility] ([facility]) [address] [place] [address] 524[address]Pswgugnqrp (Bld) [Volume fraction]40.2 %Low41.0-52.0UnMercy Health Anderson HospitalComment on above:Performed By: #### 99935-3 #### ANAIBELIJUAN ANTONIO ENGLE (55976) [facility] ([facility]) [address] [place], [place] [address]Zjoikttnhe (Bld) [Mass/Vol]13.7 g/eFElqurt35.5-17.5[facility] HospitalComment on above:Performed By: #### 32758-4 #### ANAIBELIJUAN ANTONIO ENGLE (22841) [facility] ([facility]) [address] [place] [address]55[address]GHM (RBC) [Entitic mass]31.0 heGibddn32.0-34.0[facility] Private HospitalComment on above:Performed By: #### 05307-9 #### NURA ENGLE ([id number]) [facility] ([facility]) [address] [place] [address] 554[address]JLYG (RBC) [Mass/Vol]34.1 g/eXQyjati61.0-36.0UnMercy Health Anderson HospitalComment on above:Performed By: #### 32018-6 #### NURA ENGLE (50902) [facility] ([facility]) [address] [place] [address] 44382ROV (RBC) [Entitic vol]91 xDOdceuw50-453OutbesqwmzMercy Health Anderson HospitalComment on above:Performed By: #### 28880-0 #### NURA ENGLE (46955) [facility] ([facility]) [address] [place] [address] 31530Ybldpqtss RBC/100 WBC (Bld) [Ratio]0.0 /100 WBCsNormal0.0-0.0 [facility] HospitalComment on above:Performed By: #### 08786-3 #### NURA ENGLE (11099) [facility] ([facility]) [address] [place] [address] 60846Dglrhtifa (Bld) [#/Vol]164 x10*3/lIGkqtmb263-365QxvmcctswvMercy Health Anderson HospitalComment on above:Performed By: #### 84977-1 #### QIIBPOOL ENGLE (30781) [facility] ([facility]) [address] [place] [address] 338[address]UKG (Bld) [#/Vol]4.42 x10*6/uLLow4.50-5.90UnMercy Health Anderson HospitalComment on above:Performed By: #### 04714-5 #### QIIBPOOL ENGLE ([id number]) [facility] ([facility]) [address] [place] [address] 46829UJK (Bld) [#/Vol]3.5 x10*3/uLLow4.4-11.3[facility] Private HospitalComment on above:Performed By: #### 89883-1 #### NURA SHEA RIO ANN ([id number]) [facility] (EM) [address] [place] [address] 57175Oumjsgd catheterization studyon 09-26-2024 [facility], Utilities Service Investigator [address] [place] [address] Cardiovascular Catheterization Report Patient Name: NEREYDA Cummings LUCERO Performing Physician: Christian Magallanes MD Study Date: 09/26/2024 Verifying Physician: Christian Magallanes MD MRN/PID: [id number] Supervising Floorperson/Co-Scrub: Ordering Provider: [id number] MAGALLANES Date of /Age: 12 1950 / 74 years Supervising Floorperson: Gender: M Fellow: Raghavendra Jones MD Surgeon: Study: Left Atrial Appendage Closure Indications: [...] into the left atrium. Next, a 6 Bulgarian angled pigtail was advanced through the delivery sheath into the left atrial appendage and angiography was performed via the pigtail. We selected a 40 mm Watchman FLX pro closure device but we could not reach closure criteria, after reviewing both by ICE and angiography we sized the device again. We then selected a 35 mm Watchman FLX pro closure device and c onfirmed placement both by ICE and angiography. A 'tug test' was performed and confirmed stability.No color Doppler flow around the device was [...] the procedure was 30 mls. Specimens Removed: Number of specimen(s) removed: none. ____ CONCLUSIONS: 1. Successful LAAO closure with a 35 mm Watchman FLX pro device. ICD 10 Codes: Paroxysmal atrial fibrillation-I48.0 CPT Codes: Perc left atrial appendage closure (LAAC)-06535 Christian Magallanes MD Performing Physician Final Javan Wallace MD - 09/26/2024 [facility], Utilities Service Investigator [address] [place] [address] Cardiovascular Catheterization Report Patient Name: NEREYDA BARKER Performing Physician: Christian Magallanes MD Study Date: 09/26/2024 Verifying Physician: Christian Magallanes MD MRN/PID: [id number] Supervising Floorperson/Co-Scrub: Ordering Provider: Christian MAGALLANES Date of /Age: 12 1950 / 74 years Supervising Floorperson: Gender: M Fellow: Raghavendra Jones MD Surgeon: Study: Left Atrial Appendage Closure Indications: [...] into the left atrium. Next, a 6 Bulgarian angled pigtail was advanced through the delivery sheath into the left atrial appendage and angiography was performed via the pigtail. We selected a 40 mm Watchman FLX pro closure device but we could not reach closure criteria, after reviewing both by ICE and angiography we sized the device again. We then selected a 35 mm Watchman FLX pro closure device and c onfirmed placement both by ICE and angiography. A 'tug test' was performed and confirmed stability.No color Doppler flow around the device was [...] the procedure was 30 mls. Specimens Removed: Number of specimen(s) removed: none. CONCLUSIONS: 1. Successful LAAO closure with a 35 mm Watchman FLX pro device. ICD 10 Codes: Paroxysmal atrial fibrillation-I48.0 CPT Codes: Perc left atrial appendage closure (LAAC)-49263 12885 Javan Magallanes MD Performing Physician Final [facility] Work Phone: UnKettering Health Troy Work Phone: [facility], Utilities Service Investigator [address] [place] [address] Cardiovascular Catheterization Report Patient Name: NEREYDA BARKER Performing Physician: Christian Magallanes MD Study Date: 09/26/2024 Verifying Physician: Christian Magallanes MD MRN/PID: [id number] Supervising Floorperson/Co-Scrub: Ordering Provider: Christian MAGALLANES Date of /Age: 12 1950 / 74 years Supervising Floorperson: Gender: M Fellow: Raghavendra Jones MD Surgeon: Study: Left Atrial Appendage Closure Indications: [...] into the left atrium. Next, a 6 Bulgarian angled pigtail was advanced through the delivery sheath into the left atrial appendage and angiography was performed via the pigtail. We selected a 40 mm Watchman FLX pro closure device but we could not reach closure criteria, after reviewing both by ICE and angiography we sized the device again. We then selected a 35 mm Watchman FLX pro closure device and c onfirmed placement both by ICE and angiography. A 'tug test' was performed and confirmed stability.No color Doppler flow around the device was [...] the procedure was 30 mls. Specimens Removed: Number of specimen(s) removed: none. ____ CONCLUSIONS: 1. Successful LAAO closure with a 35 mm Watchman FLX pro device. ICD 10 Codes: Paroxysmal atrial fibrillation-I48.0 CPT Codes: Perc left atrial appendage closure (LAAC)-76575 Christian Magallanes MD Performing Physician Final [facility], Radiologist, MD - 09/26/2024 [facility], Utilities Service Investigator [address] [place] [address] Cardiovascular Catheterization Report Patient Name: NEREYDA BARKER Performing Physician: Christian Magallanes MD Study Date: 09/26/2024 Verifying Physician: Christian Magallanes MD MRN/PID: [id number] Supervising Floorperson/Co-Scrub: Ordering Provider: Christian MAGALLANES Date of /Age: 12 1950 / 74 years Supervising Floorperson: Gender: M Fellow: Raghavendra Jones MD Surgeon: Study: Left Atrial Appendage Closure Indications: [...] into the left atrium. Next, a 6 Bulgarian angled pigtail was advanced through the delivery sheath into the left atrial appendage and angiography was performed via the pigtail. We selected a 40 mm Watchman FLX pro closure device but we could not reach closure criteria, after reviewing both by ICE and angiography we sized the device again. We then selected a 35 mm Watchman FLX pro closure device and c onfirmed placement both by ICE and angiography. A 'tug test' was performed and confirmed stability.No color Doppler flow around the device was [...] the procedure was 30 mls. Specimens Removed: Number of specimen(s) removed: none. CONCLUSIONS: 1. Successful LAAO closure with a 35 mm Watchman FLX pro device. ICD 10 Codes: Paroxysmal atrial fibrillation-I48.0 CPT Codes: Perc left atrial appendage closure (LAAC)-17755 21263 Javan Magallanes MD Performing Physician Final [facility] HealthcareRadiology Study observation (narrative)[facility] HealthcareCardiac catheterization studyOrdered By: Radiologist Radiology on 64-40-7416UDBT [facility] Work Phone: comprehensive metabolic 2000 panelon 80-09-2879Yzatmmj BCP dye [Mass/Vol]4.2 g/dL3.4 - 5.0 g/dLUnKettering Health TroyALP [Catalytic activity/Vol]42 U/L33 - 136 U/[facility] HospitalALT With P-5'-P [Catalytic activity/Vol]43 U/L10 - 52 U/[facility] on above:Patients treated with Sulfasalazine may generate falsely decreased results for ALT.Anion gap [Moles/Vol]9 mmol/LLow10 - 20 mmol/L [facility] HospitalAST With P-5'-P [Catalytic activity/Vol]25 U/L9 - 39 U/[facility] HospitalBilirubin [Mass/Vol]0.7 mg/dL0.0 - 1.2 mg/dLUnKettering Health TroyCalcium [Mass/Vol]9.3 mg/dL8.6 - 10.3 mg/dLUnKettering Health TroyChloride [Moles/Vol]104 mmol/L98 - 107 mmol/[facility] HospitalCO2 [Moles/Vol]31 mmol/L21 - 32 mmol/L [facility] HospitalCreatinine [Mass/Vol]0.88 mg/dL0.50 - 1.30 mg/dLUnKettering Health TroyeGFR- PINFUniMarion Hospital on above:Calculations of estimated GFR are performed using the 2020 CKD-EPI Study Refit equation without therace variable for the IDMS- Traceable creatinine methods. https://jasn.asnjournals.org/content//ASN.2292102091 Glucose [Mass/Vol]128 mg/hPPhzr34 - 99 mg/dLUnKettering Health Troy Interpretation and review of laboratory resultsAbnormalUniParkview Health Montpelier HospitalPotassium [Moles/Vol]4.2 mmol/L3.5 - 5.3 mmol/[facility] HospitalProtein [Mass/Vol]6.5 g/dL6.4 - 8.2 g/dLUnKettering Health TroySodium [Moles/Vol]140 mmol/L136 - 145 mmol/[facility] HospitalUrea nitrogen [Mass/Vol]16 mg/dL6 - 23 mg/dLUnKettering Health TroyUnKettering Health TroyAlbumin BCP dye [Mass/Vol]4.2 g/dL Normal3.4-5.0UnMercy Health Anderson HospitalComment on above: Performed By: #### 52531-6 #### NURA ENGLE ([id number]) [facility] ([facility]) [address] [place] [address] 74711MSD [Catalytic activity/Vol]42 U/NFveehw36-365VgyngibojcMercy Health Anderson HospitalComment on above:Performed By: #### 39338-0 #### QIIBELIJUAN ANTONIO ENGLE (50786) [facility] ([facility]) [address] [place] [address] 69376FDC With P-5'-P [Catalytic activity/Vol]43 U/XCnwsxy73-63 [facility] Private HospitalComment on above:Result Comment: Patients treated with Sulfasalazine may generate falsely decreased results for ALT.Performed By: #### 35582-0 #### QIIBELIJUAN ANTONIO ENGLE (59318) [facility] ([facility]) [address] [place] [address] 10827Akaup gap [Moles/Vol]9 mmol/WEfa50-57CbjwelofciMercy Health Anderson HospitalComment on above:Performed By: #### 82249-3 #### QIIBPOOL ENGLE (32394) [facility] ([facility]) [address] [place] [address] 05154UPI With P-5'-P [Catalytic activity/Vol]25 U/LNormal9-39 [facility] HospitalComment on above:Performed By: #### 75655-8 #### ANAIBELIJUAN ANTONIO ENGLE (37132) [facility] ([facility]) [address] [place] [address] 17652Ibzdxwowj [Mass/Vol]0.7 mg/dLNormal0.0-1.2[facility] HospitalComment on above:Performed By: #### 85744-6 #### QIIBPOOL ENGLE (91572) [facility] ([facility]) [address] [place] [address] 11781Loijbnv [Mass/Vol]9.3 mg/dLNormal8.6-10.3[facility] HospitalComment on above:Performed By: #### 42779-5 #### NURA ENGLE (75857) [facility] ([facility]) [address] [place] [address] 36825Pluhoxog [Moles/Vol]104 mmol/QTetoec03-764GnfoxbslokMercy Health Anderson HospitalComment on above:Performed By: #### 45016-6 #### QIIBPOOL ENGLE (48625) [facility] ([facility]) [address] [place] [address] 53830BE1 [Moles/Vol]31 mmol/QQfyfdw26-39PecaegsplmMercy Health Anderson HospitalComment on above:Performed By: #### 79357-4 #### NURA ENGLE (47575) [facility] ([facility]) [address] [place] [address] 92863Vjlffdgihg [Mass/Vol]0.88 mg/dLNormal0.50-1.30[facility] HospitalComment on above:Performed By: #### 01778-8 #### NURA ENGLE (76522) [facility] ([facility]) [address] [place] [address] 23801Xrewznkoml filtration rate>90Normal>60UnMercy Health Anderson HospitalComment on above:Result Comment: Calculations of estimated GFR are performed using the 2020 CKD-EPI Study Refit equation without the race variable for the IDMS-Traceable creatinine methods. https://jasn.asnjournals.org/content//ASN.3934560556Ucjobnpup By: #### 21052-3 #### NURA ENGLE ([id number]) [facility] ([facility]) [address] [place] [address] 46231Mfazfzs [Mass/Vol]128 mg/yLUrkn06-86HfefpnvruwMercy Health Anderson HospitalComment on above:Performed By: #### 71211-9 #### ANAIBPOOL ENGLE (05060) [facility] ([facility]) [address] [place] [address] 43241Lhjenaozm [Moles/Vol]4.2 mmol/LNormal3.5-5.3[facility] HospitalComment on above:Performed By: #### 04625-8 #### ANAIBELIJUAN ANTONIO ENGLE (86417) [facility] ([facility]) [address] [place] [address] 85971Lyupxkx [Mass/Vol]6.5 g/dLNormal6.4-8.2Keenan Private HospitalComment on above:Performed By: #### 93035-1 #### QIIBELIJUAN ANTONIO ENGLE ([id number]) [facility] (EMC) [address] [place] [address] 38466Mbnroj [Moles/Vol]140 mmol/DLmtqfk741-280VcnktrmfufMercy Health Anderson HospitalComment on above:Performed By: #### 52053-4 #### ANAIBELIJUAN ANTONIO ENGLE ([id number]) [facility] ([facility]) [address] [place] [address] 69263Jjgz nitrogen [Mass/Vol]16 mg/dLNormal6-23UnMercy Health Anderson HospitalComment on above:Performed By: #### 28673-2 #### ANAIBPOOL SHEA NGA JUAREZ ([id number]) [facility] (EMC) [address] [place] [address] 51333MSG 12-LEADon 47-68-4239LZE 12-LEADVentricular Rate 73 Atrial Rate 73 P-R Interval 174 QRS Duration 88 Q-T Interval 410 QTC Calculation(Bazett) 451 P Holton 85 R Holton 20 T Holton 81 QRS Count 11 Q Onset 224 P Onset 137 P Offset 188 T Offset 429 QTC Fredericia 438 Diagnosis Sinus rhythm with occasional Premature ventricular complexes Nonspecific T wave abnormality Abnormal ECG When compared with ECG of 26-SEP-2024 08:26, (unconfirmed) No significant change was found Confirmed by [employer] Monsivais ([id number]) on 09/26/2024 5:54:31 PMNLake View Memorial HospitalECG 12-LEADVentricular Rate 71 Atrial Rate 71 P-R Interval 164 QRS Duration 90 Q-T Interval 400 QTC Calculation(Bazett) 434 P Holton 86 R Holton 18 T Holton 69 QRS Count 12 Q Onset 225 P Onset 143 P Offset 184 T Offset 425 QTC Fredericia 423 Diagnosis Sinus rhythm with occasional Premature ventricular complexes Nonspecific T wave abnormality Abnormal ECG No previous ECGs available Confirmed by [employer] Monsivais ([id number]) on 09/26/2024 5:54:01 PMNLake View Memorial HospitalPT and aPTT panel Coag (PPP)on 18-16-8198vUMC Coag (PPP) [Time]28 [facility] CenterINR Coag (PPP) [Relative time]1.1 {INR}0.9 - 1.1[facility] HospitalInterpretation and review of laboratory resultsNormalUniParkview Health Montpelier HospitalPT Coag (PPP) [Time]12.0 s [facility] HospitalThe APTT is no longer used for monitoring Unfractionated Heparin Therapy. For monitoring Heparin Therapy, use the Heparin Assay.Mer[facility] Health Anderson HospitalaPTT Coag (PPP) [Time]28 uWachpf35-08ZcrbxgclmjKeenan Private Hospital Comment on above:Order Comment: The APTT is no longer used for monitoring Unfractionated Heparin Therapy. For monitoring Heparin Therapy, use the Heparin Assay.Performed By: #### 80585-3 #### NURA ENGLE ([id number]) [facility] ([facility] [address] [place] [address] 02242WCM Coag (PPP) [Relative time]1.4Pdtqnh7.9-1.1[facility]an Private HospitalComment on above:Order Comment: The APTT is no longer used for monitoring Unfractionated Heparin Therapy. For monitoring Heparin Therapy, use the Heparin Assay.Performed By: #### 55173-7 #### NURA ENGLE ([id number]) [facility] ([facility]) [address] [place] [address] 56099NS Coag (PPP) [Time]12.0 sNormal9.8-12.4[facility]an Private HospitalComment on above:Order Comment: The APTT is no longer used for monitoring Unfractionated Heparin Therapy. For monitoring Heparin Therapy, use the Heparin Assay.Performed By: #### 24595-3 #### NURA ENGLE ([id number]) [facility] (EMC) [address] [place] [address] 59297NRLAIVKEDODGW ECHO (TTE) LIMITED [id number] ECHO (TTE) [address] [address] TRANSTHORACIC ECHOCARDIOGRAM REPORT Patient Name: NEREYDA Cummings LUCERO Reading Physician: [id number] Andrey Gibbs DO Study Date: 09/26/2024 Ordering Provider: [id number] LELO LIM MRN/PID: [id number] Fellow: Nurse: Date of /Age: 12 1950 / 74 Controls Designer: Alex herman RDCS, RVT Gender Assigned at Additional Staff: : Height: 167.64 cm Admit Date: 09/26/2024 Weight: 100.70 kg Admission Status: Outpatient BSA / BMI: 2.09 m2 / 35.83 Department Location: CathLab kg/m2 Blood Pressure: 166 /92 mmHg Study Type: TRANSTHORACIC ECHO (TTE) LIMITED Diagnosis/ICD: Other specified postprocedural states-Z98.890 Indication: s/p LAAO CPT Codes: Echo Limited-51949 Patient History: Pertinent History: A-fib, HTN, HLD, [...] 60 % LV EF Reported: 60 % [id number] Andrey Gibbs DO Electronically signed on 09/26/2024 at 1:03:57 PM Final [facility]) [place] [id number] TRANSTHORACIC ECHOCARDIOGRAM REPORT Patient Name: NEREYDA BARKER Reading Physician: [id number] Alfie Medina MD, [facility] Study Date: 09/26/2024 Ordering Provider: [id number] LELO LIM MRN/PID: [id number] Fellow: Nurse: Date of /Age: 12 1950 Controls Designer: Alex herman RD, T Gender Assigned at M Additional Staff: : Height: 167.64 cm Admit Date: 09/26/2024 Weight: 100.70 kg Admission Status: Outpatient BSA / BMI: 2.09 m2 / 35.83 Department Location: CathLab kg/m2 Blood Pressure: 157 /90 mmHg Study Type: TRANSTHORACIC ECHO (TTE) LIMITED Diagnosis/ICD: Unspecified atrial fibrillation-I48.91 Indication: pre LAAO CPT Codes: Echo Limited-71393 Patient History: Pertinent History: A-fib, HTN, HLD, [...] 60 % LV EF Reported: 60 % [id number] Alfie Medina MD, FACC Electronically signed on 09/26/2024 at 9:12:43 AM Final NormalKeenan Private HospitalUS Heart TransthoracicOrdered By: Andrey Gibbs on 98-99-0014IT EF60 %[facility] Work Phone: [facility] Work Phone: US Heart Transthoracicon 09-26-[address] [address] TRANSTHORACIC ECHOCARDIOGRAM REPORT Patient Name: NEREYDA Cummings LUCERO [place] Physician: [id number] Andrey Gibbs DO Study Date: 09/26/2024 Ordering Provider: [id number] LELO LIM MRN/PID: [id number] Fellow: Nurse: Date of /Age: 12 1950 Controls Designer: Alex herman RDCS, RVT Gender Assigned at M Additional Staff: : Height: 167.64 cm Admit Date: 09/26/2024 Weight: 100.70 kg Admission Status: Outpatient BSA / BMI: 2.09 m2 / 35.83 Department Location: [address] [place], [place] [address]Lab kg/m2 Blood Pressure: 166 /92 mmHg Study Type: TRANSTHORACIC ECHO (TTE) LIMITED Diagnosis/ICD: Other specified postprocedural states-Z98.890 Indication: s/p LAAO CPT Codes: Echo Limited-73249 Patient History: Pertinent History: A-fib, HTN, HLD, [...] 60 % LV EF Reported: 60 % [id number] Andrey Gibbs DO Electronically signed on 09/26/2024 at 1:03:57 PM Final Andrey Mckeon DO - 09/26/2024 [place] [address] TRANSTHORACIC ECHOCARDIOGRAM REPORT Patient Name: NEREYDA BARKER [place] Physician: [id number] Andrey Gibbs DO Study Date: 09/26/2024 Ordering Provider: [id number] LELO LIM MRN/PID: [id number] Fellow: Nurse: Date of /Age: 12 1950 Controls Designer: Alex Irizarry years RDCS, RVT Gender Assigned at M Additional Staff: : Height: 167.64 cm Admit Date: 09/26/2024 Weight: 100.70 kg Admission Status: Outpatient BSA / BMI: 2.09 m2 / 35.83 Department Location: CathLab kg/m2 Blood Pressure: 166 /92 mmHg Study Type: TRANSTHORACIC ECHO (TTE) LIMITED Diagnosis/ICD: Other specified postprocedural states-Z98.890 Indication: s/p LAAO CPT Codes: Echo Limited-81776 Patient History: Pertinent History: A-fib, HTN, HLD, [...] 60 % LV EF Reported: 60 % [id number] Andrey Gibbs DO Electronically signed on 09/26/2024 at 1:03:57 PM Final [facility] Work Phone: [place] [phone] TRANSTHORACIC ECHOCARDIOGRAM REPORT Patient Name: NEREYDA Cummings LUCERO [place] Physician: [id number] Andrey Gibbs DO Study Date: 09/26/2024 Ordering Provider: [id number] LELO LIM MRN/PID: [id number] Fellow: Nurse: Date of /Age: 12 1950 Controls Designer: Alex herman RDCS, RVT Gender Assigned at M Additional Staff: : Height: 167.64 cm Admit Date: 09/26/2024 Weight: 100.70 kg Admission Status: Outpatient BSA / BMI: 2.09 m2 / 35.83 [facility] Blood Pressure: 166 /92 mmHg Study Type: TRANSTHORACIC ECHO (TTE) LIMITED Diagnosis/ICD: Other specified postprocedural states-Z98.890 Indication: s/p LAAO CPT Codes: Echo Limited-36239 Patient History: Pertinent History: A-fib, HTN, HLD, [...] 60 % LV EF Reported: 60 % [id number] Andrey Gibbs DO Electronically signed on 09/26/2024 at 1:03:57 PM Final Radiology, Radiologist, MD - 09/26/2024 [place] [address] TRANSTHORACIC ECHOCARDIOGRAM REPORT Patient Name: NEREYDA BARKER Reading Physician: [id number] Andrey Gibbs DO Study Date: 09/26/2024 Ordering Provider: [id number] LELO LIM MRN/PID: [id number] Fellow: Nurse: Date of /Age: 12 1950 Controls Designer: Alex herman RDCS, RVT Gender Assigned at M Additional Staff: : Height: 167.64 cm Admit Date: 09/26/2024 Weight: 100.70 kg Admission Status: Outpatient BSA / BMI: 2.09 m2 / 35.83 Department Location: [address] [place] [address] kg/m2 Blood Pressure: 166 /92 mmHg Study Type: TRANSTHORACIC ECHO (TTE) LIMITED Diagnosis/ICD: Other specified postprocedural states-Z98.890 Indication: s/p LAAO CPT Codes: Echo Limited-96191 Patient History: Pertinent History: A-fib, HTN, HLD, [...] 60 % LV EF Reported: 60 % [id number] Andrey Gibbs DO Electronically signed on 09/26/2024 at 1:03:57 PM Final [place] [address] TRANSTHORACIC ECHOCARDIOGRAM REPORT Patient Name: NEREYDA Cummings LUCERO Reading Physician: [id number] Alfie Medina MD, [facility] Study Date: 09/26/2024 Ordering Provider: [id number] LELO LIM MRN/PID: [id number] Fellow: Nurse: Date of /Age: 12 1950 Controls Designer: Alex herman RDCS, RVT Gender Assigned at M Additional Staff: : Height: 167.64 cm Admit Date: 09/26/2024 Weight: 100.70 kg Admission Status: Outpatient BSA / BMI: 2.09 m2 / 35.83 Department Location: [address] [place], [place] [address]Lab kg/m2 Blood Pressure: 157 /90 mmHg Study Type: TRANSTHORACIC ECHO (TTE) LIMITED Diagnosis/ICD: Unspecified atrial fibrillation-I48.91 Indication: pre LAAO CPT Codes: Echo Limited-16909 Patient History: Pertinent History: A-fib, HTN, HLD, [...] 60 % LV EF Reported: 60 % [id number] Alfie Medina MD, [facility] Electronically signed on 09/26/2024 at 9:12:43 AM Final Alfie Mcdaniels MD - 09/26/2024 [place] [address] TRANSTHORACIC ECHOCARDIOGRAM REPORT Patient Name: NEREYDA Cummings LUCERO Reading Physician: [id number] Alfie Medina MD, FACC Study Date: 09/26/2024 Ordering Provider: [id number] LELO LIM MRN/PID: [id number] Fellow: Nurse: Date of /Age: 12 1950 Controls Designer: Alex Irizarry years RDCS, RVT Gender Assigned at M Additional Staff: : Height: 167.64 cm Admit Date: 09/26/2024 Weight: 100.70 kg Admission Status: Outpatient BSA / BMI: 2.09 m2 / 35.83 Department Location: [address] [place] [address] kg/m2 Blood Pressure: 157 /90 mmHg Study Type: TRANSTHORACIC ECHO (TTE) LIMITED Diagnosis/ICD: Unspecified atrial fibrillation-I48.91 Indication: pre LAAO CPT Codes: Echo Limited-26445 Patient History: Pertinent History: A-fib, HTN, HLD, [...] 60 % LV EF Reported: 60 % [id number] Alfie Medina MD, FACC Electronically signed on 09/26/2024 at 9:12:43 AM Final [facility] Work Phone: [place] [phone] TRANSTHORACIC ECHOCARDIOGRAM REPORT Patient Name: NEREYDA BARKER Reading Physician: [id number] Alfie Medina MD, [facility] Study Date: 09/26/2024 Ordering Provider: [id number] LELO Mary Grace RAPHAEL MRN/PID: [id number] Fellow: Nurse: Date of /Age: 12 1950 Controls Designer: Alex herman RDCS, RVT Gender Assigned at Additional Staff: : Height: 167.64 cm Admit Date: 09/26/2024 Weight: 100.70 kg Admission Status: Outpatient BSA / BMI: 2.09 m2 / 35.83 [facility] Blood Pressure: 157 /90 mmHg Study Type: TRANSTHORACIC ECHO (TTE) LIMITED Diagnosis/ICD: Unspecified atrial fibrillation-I48.91 Indication: pre LAAO CPT Codes: Echo Limited-64471 Patient History: Pertinent History: A-fib, HTN, HLD, [...] 60 % LV EF Reported: 60 % [id number] Alfie Medina MD, [facility] Electronically signed on 09/26/2024 at 9:12:43 AM Final Radiology, Radiologist, - 09/26/2024 [place] [phone] TRANSTHORACIC ECHOCARDIOGRAM REPORT Patient Name: NEREYDA BARKER Reading Physician: [id number] Alfie Medina MD, [facility] Study Date: 09/26/2024 Ordering Provider: [id number] LELO LIM MRN/PID: [id number] Fellow: Nurse: Date of /Age: 12 1950 Controls Designer: Alex herman RDCS, RVT Gender Assigned at M Additional Staff: : Height: 167.64 cm Admit Date: 09/26/2024 Weight: 100.70 kg Admission Status: Outpatient BSA / BMI: 2.09 m2 / 35.83 [facility] Blood Pressure: 157 /90 mmHg Study Type: TRANSTHORACIC ECHO (TTE) LIMITED Diagnosis/ICD: Unspecified atrial fibrillation-I48.91 Indication: pre LAAO CPT Codes: Echo Limited-44936 Patient History: Pertinent History: A-fib, HTN, HLD, [...] 60 % LV EF Reported: 60 % [id number] Alfie Medina MD, [facility] Electronically signed on 09/26/2024 at 9:12:43 AM Final [facility] HealthcareRadiology Study observation (narrative)[facility] HealthcareRadiology Study observation (narrative)[facility] HealthcareUS Heart TransthoracicOrdered By: Radiologist Radiology on 88-41-1379YKDJ [facility] Work Phone: [facility] Work Phone: US Heart TransthoracicOrdered By: Alfie Medina on 48-11-1408UO EF60 %[facility] Work Phone: [facility] Work Phone: [place] WATCHMAN FULL CONTRASTon 09-15-2024 Source Facility: [facility] Interpreted By: Andrey Singh, STUDY: CT PRE WATCHMAN FULL CONTRAST; 09/14/2024 2:39 pm INDICATION: Signs/Symptoms:A-Fib. COMPARISON: None. ACCESSION NUMBER(S): [id number] ORDERING CLINICIAN: JAVAN MAGALLANES TECHNIQUE: Using multidetector CT technology, Lobito CT 64-slice scanner, axial, sequential imaging with retrospective gating and minimal slice thickness was performed of the chest following the intravenous administration of contrast material. A low-osmolar contrast agent was used 70 mL of Omnipaque 350. Also, the imaging was repeated after 30 sec delay as per watchman protocol. Also, patient received 500 mL of normal saline prior to exam as per protocol. For optimization of anatomic evaluation, multiplanar reconstruction, maximum intensity projections, and advanced 3-D off-line postprocessing were performed on a dedicated stand-alone workstation under the direct supervision of the interpreting physician. CT Dose-Length Product (DLP): 1305.2 mGy/cm CT Dose Reduction Employed: Yes Prospective triggering, iterative reconstruction FINDINGS: LEFT ATRIAL APPENDAGE: Ostial diameter: 33 x 29 mm Depth: 43 mm No evidence of left atrial appendage thrombus. CORONARY ARTERIES: The study was not tailored for the evaluation of coronary arteries. There is normal origin of the coronary arteries. Coronary anatomy is left dominant. Diffuse coronary artery calcification. CARDIAC CHAMBERS: The cardiac chambers demonstrate normal atrioventricular and ventriculoarterial concordance, and systemic and pulmonary venous return. LEFT ATRIUM: Dilated 5.5 cm. RIGHT ATRIUM: Normal size INTERATRIAL SEPTUM: Intact. LEFT VENTRICLE: Normal size [...] no pericardial effusion of thickening. IMPRESSION: 1. Left atrial appendage ostial orifice dimension 33 x 29 mm. 2. Left atrial appendage depth 43 mm. 3. No evidence of left atrial/left atrial appendage thrombus. Reading Supervising Floorperson: Dr. Andrey Singh, Date: 09/15/2024 11:19 am Signed by: Andrey Singh 09/15/2024 11:20 AM Dictation workstation: [id number], Radiologist, - 09/15/2024 Source Facility: [facility] Interpreted By: Andrey Singh, STUDY: CT PRE WATCHMAN FULL CONTRAST; 09/14/2024 2:39 pm INDICATION: Signs/Symptoms:A-Fib. COMPARISON: None. ACCESSION NUMBER(S): [id number] ORDERING CLINICIAN: JAVAN MAGALLANES TECHNIQUE: Using multidetector CT technology, Lobito CT 64-slice scanner, axial, sequential imaging with retrospective gating and minimal slice thickness was performed of the chest following the intravenous administration of contrast material. A low-osmolar contrast agent was used 70 mL of Omnipaque 350. Also, the imaging was repeated after 30 sec delay as per watchman protocol. Also, patient received 500 mL of normal saline prior to exam as per protocol. For optimization of anatomic evaluation, multiplanar reconstruction, maximum intensity projections, and advanced 3-D off-line postprocessing were performed on a dedicated stand-alone workstation under the direct supervision of the interpreting physician. CT Dose-Length Product (DLP): 1305.2 mGy/cm CT Dose Reduction Employed: Yes Prospective triggering, iterative reconstruction FINDINGS: LEFT ATRIAL APPENDAGE: Ostial diameter: 33 x 29 mm Depth: 43 mm No evidence of left atrial appendage thrombus. CORONARY ARTERIES: The study was not tailored for the evaluation of coronary arteries. There is normal origin of the coronary arteries. Coronary anatomy is left dominant. Diffuse coronary artery calcification. CARDIAC CHAMBERS: The cardiac chambers demonstrate normal atrioventricular and ventriculoarterial concordance, and systemic and pulmonary venous return. LEFT ATRIUM: Dilated 5.5 cm. RIGHT ATRIUM: Normal size INTERATRIAL SEPTUM: Intact. LEFT VENTRICLE: Normal size [...] no pericardial effusion of thickening. IMPRESSION: 1. Left atrial appendage ostial orifice dimension 33 x 29 mm. 2. Left atrial appendage depth 43 mm. 3. No evidence of left atrial/left atrial appendage thrombus. Reading Supervising Floorperson: Dr. Andrey Singh, Date: 09/15/2024 11:19 am Signed by: Andrey Singh 09/15/2024 11:20 AM Dictation workstation: [id number] [facility] WATCHMAN FULL CONTRASTOrdered By: Radiologist Radiology on 56-26-2601BIRQBarnes-Jewish West [facility] Work Phone: ct PRE WATCHMAN FULL CONTRASTon [id number] PRE WATCHMAN FULL CONTRASTInterpreted By: Andrey Antonio, ADDENDUM: Technical: The following is to serve as an over-read a contrast-enhanced cardiac CT, to evaluate the extravascular structures. Contiguous axial CT sections are performed from the level the eliud to the upper abdomen following the bolus administration of 70 cc of intravenous Omnipaque 350. Findings: The visualized portions of both lungs are clear. There is no sign of pathologic lymph node enlargement. There is no pericardial or pleural effusion. Images through the upper abdomen are unremarkable. The visualized osseous structures are intact. Impression: The extravascular structures have an unremarkable CT appearance. Signed by: Andrey Antonio 09/16/2024 11:20 PM -------- ORIGINAL REPORT -------- Dictation workstation: [id number] Interpreted By: Andrey Singh, STUDY: CT PRE WATCHMAN FULL CONTRAST; 09/14/2024 2:39 pm INDICATION: Signs/Symptoms:A-Fib. COMPARISON: None. ACCESSION NUMBER(S): [id number] ORDERING CLINICIAN: JAVAN MAGALLANES TECHNIQUE: Using multidetector CT technology, Lobito CT 64-slice scanner, axial, sequential imaging with retrospective gating and minimal slice thickness was performed of the chest following the intravenous administration of contrast material. A low-osmolar contrast agent was used 70 mL of Omnipaque 350. Also, the imaging was repeated after 30 sec delay as per [facility] protocol. Also, patient received 500 mL of normal saline prior to exam as per protocol. For optimization of anatomic evaluation, multiplanar reconstruction, maximum intensity projections, and advanced 3-D off-line postprocessing were performed on a dedicated stand-alone workstation under the direct supervision of the interpreting physician. CT Dose-Length Product (DLP): 1305.2 mGy/cm CT Dose Reduction Employed: Yes Prospective triggering, iterative reconstruction FINDINGS: LEFT ATRIAL APPENDAGE: Ostial diameter: 33 x 29 mm Depth: 43 mm No evidence of left atrial appendage thrombus. CORONARY ARTERIES: The study was not tailored for the evaluation of coronary arteries. There is normal origin of the coronary arteries. Coronary anatomy is left dominant. Diffuse coronary artery calcification. CARDIAC CHAMBERS: The cardiac chambers demonstrate normal atrioventricular and ventriculoarterial concordance, and systemic and pulmonary venous return. LEFT ATRIUM: Dilated 5.5 cm. RIGHT ATRIUM: Normal size INTERATRIAL SEPTUM: Intact. LEFT VENTRICLE: Normal size [...] no pericardial effusion of thickening. IMPRESSION: 1. Left atrial appendage ostial orifice dimension 33 x 29 mm. 2. Left atrial appendage depth 43 mm. 3. No evidence of left atrial/left atrial appendage thrombus. Reading Supervising Floorperson: Dr. Andrey Singh, Date: 09/15/2024 11:19 am Signed by: Andrey Singh 09/15/2024 11:20 AM Dictation workstation: [id number] County Health CenterCT WATCHMAN FULL CONTRASTon [id number] Study observation (narrative)[facility] LUMBAR SPINE WO CONTRASTon 00-26-4133XP LUMBAR SPINE WO CONTRASTEXAMINATION/TECHNIQUE: MR LUMBAR SPINE WO CONTRAST HISTORY: Chronic worsening low back pain. Bilateral leg pain and weakness. COMPARISON: Lumbar radiographs 06/18/2024. CT abdomen/pelvis 06/22/2024. RESULT: Counting reference: Lumbosacral junction. For the purposes of this report, L5-S1 is considered the last well-formed disc space. 5 lumbar type vertebral bodies. Alignment: Mild rightward curvature. Straightening of the lumbar lordosis. Otherwise near-anatomic. Bone marrow signal: No evidence for recent fracture. No pathologic marrow infiltration. Endplate degenerative signal at L2-L3 and L3-L4. Underlying decreased bone mineral density. Conus: The conus is within normal limits of signal intensity and morphology. Paraspinal soft tissues: Grossly unchanged from the recent CT of the abdomen/pelvis. Lower thoracic spine: Visualized lower thoracic canal and foramina without significant narrowing. T12-L1: No significant canal or foraminal narrowing. L1-L2: Tiny disc bulge. Facet degenerative changes. No significant canal or foraminal narrowing. L2-L3: Broad-based disc bulge. Annular fissure. Possible small central zone protrusion. Endplate osteophytes. Ligamentous hypertrophy. Facet degenerative changes. Mild to moderate canal narrowing with moderate bilateral foraminal narrowing. L3-L4: Broad-based disc bulge. Annular fissure. Possible small central zone protrusion endplate osteophytes. Ligamentous hypertrophy. Facet degenerative changes. Severe left and moderate right foraminal narrowing with mild to moderate canal narrowing. L4-L5: Broad-based disc bulge. Endplate osteophytes. Facet degenerative changes. Ligamentous hypertrophy. Severe left and moderate right foraminal narrowing with moderate canal narrowing. L5-S1: Disc bulge with possible small central zone protrusion. Facet degenerative changes. Moderateright and mild left foraminal narrowing without significant canal narrowing. Sacrum and iliac wings: The visualized sacrum and iliac wings are unremarkable. IMPRESSION: Degenerative changes lumbar spine as discussed. ELECTRONICALLY SIGNED BY: Nick Khan MDNojrNot AvailableNo Panel InformationOrdered By: Jada De La Cruz on 29-96-1983Faloaug INR (LAB)2.4 [facility] HospitalNo Panel InformationOrdered By: Jada De La Cruz on 74-24-5290Kthdqub INR (LAB)2.5FUC HealthAlanine aminotransferase [Enzymatic activity/volume] in Serum or PlasmaOrdered By: Maximiliano Belle on 34-52-1474VUD [Catalytic activity/Vol]36 U/L7-52[facility] HospitalComment on above:Performed By: #### CBC, ESR, CMP #### [facility] [address] [place] [address] USAAlbumin [Mass/volume] in Serum or Plasma by Bromocresol green (BCG) dye binding methoOrdered By: Maximiliano Belle on 35-63-0569Zzbaeec BCG dye [Mass/Vol]4.1 g/dL3.5-5.7FUC HealthAlkaline phosphatase [Enzymatic activity/volume] in Serum or PlasmaOrdered By: Maximiliano Belle on 61-15-5040WKN [Catalytic activity/Vol]44 U/P74-119TvovgdchpPremier Health Miami Valley HospitalComment on above:Result Comment: PERFORMED BY: [facility] [address] [place] [address] PATHOLOGIST AREA CAPTAIN SEAN VALDEZ M.D.Performed By: #### CBC, ESR, CMP #### [facility] [address] [place] [address] USAAspartate aminotransferase [Enzymatic activity/volume] in Serum or PlasmaOrdered By: Maximiliano Belle on 95-53-6937ARW [Catalytic activity/Vol]24 U/X27-77VlqyrneacPremier [facility] HospitalComment on above: Performed By: #### CBC, ESR, CMP #### [facility] [address] [place] [address] USABasophils [#/volume] in Blood by Automated countOrdered By: Maximiliano Mccallrow on 72-76-4854Uvtyumcpq (Bld) [#/Vol]0.1 10*3/uL0.0-0.2 [facility] HospitalComment on above:Performed By: #### CBC, ESR, CMP #### [facility] [address] [place] [address] USABasophils/100 leukocytes in Blood by Automated count Ordered By: Maximiliano Mccallrow on 80-37-1063Apmydlpko/100 WBC (Bld)2.8 %.[facility] HospitalComment on above:Performed By: #### CBC, ESR, CMP #### [facility] [address] [place] [address] USABilirubin.total [Mass/volume] in Serum or PlasmaOrdered By: Maximilianomarlena Belle on 67-81-0741Cxpndhbol [Mass/Vol]0.4 mg/dL0.3-1.0[facility] HospitalComment on above:Performed By: #### CBC, ESR, CMP #### [place] [address] USACalcium [Mass/volume] in Serum or PlasmaOrdered By: Maximiliano Erasmo on 14-19-0110Eivnxeb [Mass/Vol]9.3 mg/dL8.6-10.3FUC HealthComment on above:Performed By: #### CBC, ESR, CMP #### [facility] [address] [place] [address] USACarbon dioxide, total [Moles/volume] in Serum or Plasma Ordered By: Maximilianomarlena Belle on 74-39-9239CA9 [Moles/Vol]29.1 mmol/L21.0-31.0 [facility] HospitalComment on above:Performed By: #### CBC, ESR, CMP #### [place] [address] USAChloride [Moles/volume] in Serum or PlasmaOrdered By: Maximilianomarlena Belle on 52-04-8665Gatkiefm [Moles/Vol]99 mmol/U60-050XunhdqrgePremier Health [facility] Valley HospitalComment on above:Performed By: #### CBC, ESR, CMP #### [facility] [address] [place] [address] USAComplete Blood Count Auto Diffon 95-75-8482Zhvc Corpuscular HGB Conc34.9 g/qWCiffpu84.5-35.6[facility] Physician GroupComment on above:Performed By: #### CBC, ESR, CMP #### [place] [address] USANRBC%0.1 /100{WBC}Normal0-0.5[facility] Comment on above:Performed By: #### CBC, ESR, CMP #### [place] [address] USAWhite Blood Count3.2 [CFU]/mLLow4.1-10.5[facility] Physician GroupComment on above:Performed By: #### CBC, ESR, CMP #### [place] [address] USAComprehensive Metabolic Panelon 60-55-9634Caemhti [Mass/Vol]4.1 g/dLNormal3.5-5.7[facility] Physician GroupComment on above: Performed By: #### CBC, ESR, CMP #### [place] [address] USAGFR/1.73 sq M.predicted MDRD (S/P/Bld) [Vol rate/Area] mL/min/{1.73_m2}NormalThe [facility] Stokes Physician GroupComment on above:Performed By: #### CBC, ESR, CMP #### [facility] [address] [place] [address] USACreatinine [Mass/volume] in Serum or PlasmaOrdered By: Maximiliano Belle on 51-55-0051Oiwfabmjmi [Mass/Vol]0.77 mg/dL0.70-1.30[facility] HospitalComment on above:Performed By: #### CBC, ESR, CMP #### [facility] [address] [place] [address] USAEosinophils [#/volume] in Blood by Automated countOrdered By: Maximiliano Belle on 96-61-3331Dzmuwbiwitc (Bld) [#/Vol]0.4 10*3/uL0.0-0.45 [facility] HospitalComment on above:Performed By: #### CBC, ESR, CMP #### [place] [address] USAEosinophils/100 leukocytes in Blood by Automated count Ordered By: Maximiliano Belle on 54-33-5841Jimzeuucnvr/100 WBC (Bld)12.2 %. [facility] HospitalComment on above:Performed By: #### CBC, ESR, CMP #### [place] [address] USAErythrocyte Sedimentation Rateon 11-03-9586PEU (Bld) [Velocity]5 mm/hNormal0-19The [facility] Physician GroupComment on above:Result Comment: PERFORMED BY: [place] [address] PATHOLOGIST AREA CAPTAIN SEAN VALDEZ M.D.Performed By: #### CBC, ESR, CMP #### [place] [address] USAErythrocyte distribution width [Ratio] by Automated count Ordered By: Maximiliano Belle on 46-68-9144Lnopcbgjaof distribution width (RBC) [Ratio]13.5 %12.0-14.8[facility] HospitalComment on above: Performed By: #### CBC, ESR, CMP #### [place] [address] USAErythrocyte sedimentation rate by Photometric method Ordered By: Maximiliano Belle on 46-69-3492RWS Photometric method (Bld) [Velocity]5 mm/hr0-19[facility] HospitalErythrocytes [#/volume] in Blood by Automated countOrdered By: Maximiliano Belle on 85-21-7933JXJ (Bld) [#/Vol]4.37 10*6/uL3.90-5.60[facility] HospitalComment on above:Performed By: #### CBC, ESR, CMP #### [facility] [address] [place] [id number] USAGlucose [Mass/volume] in Serum or PlasmaOrdered By: Maximilianomarlena Belle on 55-83-4127Yxwfhiv [Mass/Vol]186 mg/dCJzil39-124GaahctsnkPremier Health [facility] HospitalComment on above:ADA recommended reference rangeRandom Glucose Reference Range is dependent on time and content of last meal. Glucose of more than 200 mg/dL in a nonstressed, ambulatory subject supports the diagnosisof Diabetes Mellitus.Result Comment: Random Glucose Reference Range is dependent on time and content of last meal. Glucose of more than 200 mg/dL in a nonstressed, ambulatory subject supports the diagnosis of Diabetes Mellitus. ADA recommended reference rangePerformed By: #### CBC, ESR, CMP #### [facility] [address] [place] [address] USAHematocrit [Volume Fraction] of Blood by Automated count Ordered By: Maximiliano Belle on 01-82-1630Nvzgtumaxq (Bld) [Volume fraction]38.9 % 38.8-50.0[facility] HospitalComment on above:Performed By: #### CBC, ESR, CMP #### [facility] [address] [place], [place] [id number] USAHemoglobin [Mass/volume] in BloodOrdered By: Maximiliano Belle on 90-67-3109Gmjfcqiyap (Bld) [Mass/Vol]13.6 g/dL13.0-17.0[facility] HospitalComment on above:Performed By: #### CBC, ESR, CMP #### [place] [id number] USALeukocytes [#/volume] corrected for nucleated erythrocytes in Blood by Automated counOrdered By: Maximiliano Belle on 34-95-6115TAR corrected for nucl RBC Auto (Bld) [#/Vol]3.2 10*3/uLLow4.1-10.5FUC HealthLeukocytes [#/volume] in Blood by Automated countOrdered By: Maximiliano Belle on 39-63-5022HEJ (Bld) [#/Vol]3.2 10*3/uLLow4.1-10.5FUC HealthComment on above:Performed By: #### CBC, ESR, CMP #### [facility] [address] [place] [address] USALymphocytes [#/volume] in Blood by Automated countOrdered By: Maximiliano Belle on 83-79-1726Mspzuonoxyj (Bld) [#/Vol]0.8 10*3/uLLow1.00-4.8 [facility] HospitalComment on above:Performed By: #### CBC, ESR, CMP #### [facility] [address] [place] [address] USALymphocytes/100 leukocytes in Blood by Automated count Ordered By: Maximiliano Belle on 77-79-4049Ykdiaowtvdx/100 WBC (Bld)25.8 %. [facility] HospitalComment on above:Performed By: #### CBC, ESR, CMP #### [address] [Entitic mass] by Automated countOrdered By: Maximiliano Belle on 27-72-0373NKI (RBC) [Entitic mass]31.1 pg27.5-35.2FUC HealthComment on above:Performed By: #### CBC, ESR, CMP #### [address] Auto (RBC) [Mass/Vol]Ordered By: Maximiliano Belle on 85-66-6975RERL (RBC) [Mass/Vol]34.9 g/dL32.5-35.6FUC HealthMCV [Entitic volume] by Automated countOrdered By: Maximiliano Belle on 63-43-2253MOT (RBC) [Entitic vol]89.1 fL83.5-101[facility] HospitalComment on above:Performed By: #### CBC, ESR, CMP #### [place] [address] USAMonocytes [#/volume] in Blood by Automated countOrdered By: Maximiliano Belle on 64-40-7603Mwzuuklbz (Bld) [#/Vol]0.4 10*3/uL0.0-0.8 [facility] HospitalComment on above:Performed By: #### CBC, ESR, CMP #### [facility] [address] [place] [address] USAMonocytes/100 leukocytes in Blood by Automated count Ordered By: Maximiliano Belle on 28-82-0235Grmsicdsq/100 WBC (Bld)12.0 %.[facility] HospitalComment on above:Performed By: #### CBC, ESR, CMP #### [facility] [address] [place] [address] USANeutrophils [#/volume] in Blood by Automated countOrdered By: Maximiliano Belle on 24-25-4139Nyimuvmxskp (Bld) [#/Vol]1.5 10*3/uLLow1.8-7.7 [facility] HospitalComment on above:Performed By: #### CBC, ESR, CMP #### [facility] [address] [place] [address] USANeutrophils/100 leukocytes in Blood by Automated count Ordered By: Maximiliano Belle on 60-50-9741Tmeblwqekce/100 WBC (Bld)47.2 %. [facility] HospitalComment on above:Performed By: #### CBC, ESR, CMP #### [facility] [address] [place], [place] [id number] USANo Panel InformationOrdered By: Maximiliano Belle on 54-25-5136Ayhelpbsc GFR (CKD-EPI)> 60.0 mL/MinPremier Health [facility] Hospital [facility]acy Creatinine Clearance (ChemN/AFUC HealthNucleated erythrocytes [Presence] in Blood by Automated countOrdered By: Maximiliano Belle on 13-35-5527Adkarmrxj RBC Auto Ql (Bld)0.1 /100{WBC}0-0.5FUC HealthPlatelet mean volume [Entitic volume] in Blood by Automated count Ordered By: Maximiliano Belle on 93-40-5085Mlqkovij mean volume (Bld) [Entitic vol] 8.5 fL6.6-10.1FUC HealthComment on above:Performed By: #### CBC, ESR, CMP #### [facility] [address] [place] [address] USAPlatelets [#/volume] in Blood by Automated countOrdered By: Maximiliano Erasmo on 58-83-5902Ixrknsgop (Bld) [#/Vol]180 10*3/lX500-669 [facility] HospitalComment on above:Performed By: #### CBC, ESR, CMP #### [place] [address] USAPotassium [Moles/volume] in Serum or PlasmaOrdered By: Maximiliano Belle on 24-58-1169Qubzhrvav [Moles/Vol]3.7 mmol/L3.5-5.1FUC HealthComment on above:Performed By: #### CBC, ESR, CMP #### [place] [address] USAProtein [Mass/volume] in Serum or PlasmaOrdered By: Maximiliano Belle on 07-06-7213Spdqddu [Mass/Vol]6.4 g/dL6.4-8.9[facility] HospitalComment on above:Performed By: #### CBC, ESR, CMP #### [place] [address] USASerum globulin measurement by calculation (mass/volume) Ordered By: Maximiliano Belle on 54-37-6257Uyammfrl (S) [Mass/Vol]2.3 g/dLPremier Health Miami Valley HospitalComment on above:Performed By: #### CBC, ESR, CMP #### [place] [address] USASerum or plasma albumin/globulin mass ratioOrdered By: Maximiliano Belle on 90-83-8642Mhjzevk/Globulin [Mass ratio]1.8 {ratio}[facility] HospitalComment on above:Performed By: #### CBC, ESR, CMP #### [place] [address] USASerum or plasma anion gap determinationOrdered By: Maximiliano Belle on 34-98-9890Ouzdw gap [Moles/Vol]9.6 mmol/L6.0-15.0[facility] HospitalComment on above:Performed By: #### CBC, ESR, CMP #### [facility] [address] [place] [address] USASodium [Moles/volume] in Serum or PlasmaOrdered By: Maximiliano Erasmo on 64-49-5638Cuhfwh [Moles/Vol]134 mmol/ZDjy030-961GcewknfjbPremier Health [facility] HospitalComment on above:Performed By: #### CBC, ESR, CMP #### [facility] [address] [place] [address] USAUrea nitrogen [Mass/volume] in Serum or PlasmaOrdered By: Maximilianomarlena Belle on 56-05-1217Rxuw nitrogen [Mass/Vol]11 mg/dL7-[facility] HospitalComment on above:Performed By: #### CBC, ESR, CMP #### [facility] [address] [place] [address] USAECG 12 [place] 81-45-4577Gnyrv rhythm with occasional PVCs, otherwise normal examCPACSNorwalk Memorial Hospital Work Phone: no Panel InformationOrdered By: Jada De La Cruz on 83-19-0982Mzstzwf INR (LAB)2.0[facility] HospitalCapillary blood glucose measurement by glucometer (mass/volume)Ordered By: Tamika Brink on 02-16-2503Zjnlusw [Mass/Vol]101 mg/dLPremier Health Miami Valley HospitalComment on above:Random Glucose Reference Range is dependent on time and content of last meal. Glucose of more than 200 mg/dL in a nonstressed, ambulatory subject supports the diagnosis of Diabetes Mellitus.Result Comment: Random Glucose Reference Range is dependent on time and content of last meal. Glucose of more than 200 mg/dL in a nonstressed, ambulatory subject supports the diagnosis of Diabetes Mellitus.Performed By: #### CBC, ESR, CMP #### [facility] [address] [place] [address] USAGlucose Poct Glucometerson 01-06-1172Cmmgrrz5Abn4: Cleaned [facility] Physician GroupComment on above:Result Comment: PERFORMED BY: [place] [address] PATHOLOGIST ARE[employer] CAPTAIN SEAN VALDEZ M.D.Performed By: #### REGINALDO ESR, CMP #### [address] [address] USAINR in Platelet poor plasma by Coagulation assayOrdered By: Tamika Brink on 38-77-0012GZP Coag (PPP) [Relative time]1.1 {INR}[facility] HospitalComment on above:INR Therapeutic Range A) Pre- and Peroperative OAT started two weeks before surgery. NOT HIP SURGERY: 1.5 - 2.5 HIP SURGERY: 2 - 3B) Primary and secondary prevention of venous THROMBOSIS: 2 - 3C) Active venous thrombosis, pulmonary embolismand prevention of recurrent venous thrombosis: 2 - 3D) Prevention of arterial thromboembolismincluding patients with mechanical heart valves: 3 - 4.5Result Comment: INR Therapeutic Range A) Pre- and Peroperative OAT started two weeks before surgery. NOT HIP SURGERY: 1.5 - 2.5 HIP SURGERY: 2 - 3 B) Primary and secondary prevention of venous THROMBOSIS: 2 - 3 C) Active venous thrombosis, pulmonary embolism and prevention of recurrent venous thrombosis: 2 - 3 D) Prevention of arterial thromboembolism including patients with mechanical heart valves: 3 - 4.5 PERFORMED BY: [place] [address] PATHOLOGIST ARE[employer] CAPTAIN SEAN VALDEZ M.D.Performed By: #### REGINALDO, ESR, CMP #### [address] [address] USALon 08-06-2024L Specimen: [id number] Received: 08/06/24 Status: MILDRED Patel Num: [id number] Spec Type: Surgical Subm Dr: Tamika Brink DO Tissues: A Small Intestine - Biopsy/Polyp (SMALL BOWEL BX) B Gastric Biopsy (GASTRIC BX) C Gastric Biopsy (GASTRIC POLYP) Procedures: HE/6, Gross/Micro L4/3 Age/ Patient Sex Location Account Attending Physician Nereyda Barker 74/[facility] [id number] Tamika Brink DO SPEC NUM: [id number] RECD: 08/06/24 STATUS: MILDRED PATEL NUM: [id number] HARMAN: [birth year][address]: Tamika Brink DO ENTERED: 08/06/24 NEVAEH MCNULTY: OCTAVIA TYPE: Surgical DEPT: S ENTERED BY: [id number] RECV BY: [id number] ORDERED: HE/6, Gross/Micro L4/3 ORDERED: HE/6, Gross/Micro L4/3 Pathological Diagnosis A. Small bowel biopsy: ? Fragments of small intestinal mucosa, no diagnostic abnormality ? No evidence of celiac disease is identified B. Gastric biopsy: ? Mild chronic gastritis consistent with reactive gastropathy ? No Helicobacter is identified on H E stained sections C. Gastric polyp: ? Fundic gland polyp Clinical Information Melena, Part A rule out celiac, Part B rule out H. pylori Gross Description Part A is received in formalin labeled with the patients name, date of , and small bowel BX are 2 trinidad-bose, focally erythematous, friable, 0.2 and 0.3 cm in greatest dimension tissue bits. The specimen is entirely submitted in a single cassette. (1, ns, [id number] A) Part B is received in formalin labeled with the patients name, date of , and gastric Specimen: [id number] Received: 08/06/24 Status: MILDRED Patel Num: [id number] Spec Type: Surgical Subm Dr: Tamika Brink, Tissues: A Small Intestine - Biopsy/Polyp (SMALL BOWEL BX) B Gastric Biopsy (GASTRIC BX) C Gastric Biopsy (GASTRIC POLYP) Procedures: HE/6, Gross/Micro L4/3 Patient: Nereyda Barker [id number] (Continued) Specimen: [id number] Received: 08/06/24 (Continued) Gross Description (Continued) Signed (signature on file) Oleg Ley MD 08/07/24 1103 Specimen: Received: 08/06/24 Status: MILDRED Patel Num: [id number] Spec Type: Surgical Subm Dr: Tamika Brink DO Tissues: A Small Intestine - Biopsy/Polyp (SMALL BOWEL BX) B Gastric Biopsy (GASTRIC BX) C Gastric Biopsy (GASTRIC POLYP) Procedures: HE/6, Gross/Micro L4/3 Patient: Nereyda Barker [id number] (Continued) Specimen: Received: 08/06/24 (Continued) Gross Description (Continued) BX are 2 trin[place]-bose, focally erythematous, friable, 0.2 and 0.3 cm in greatest dimension tissue bits. The specimen is entirely submitted in a single cassette. (1, ns, [id number] B) Part C is received in formalin labeled with the patients name, date of , and gastric polyp is a trinidad-bose, focally erythematous, friable, 0.4 cm in greatest dimension polypoid fragment. The specimen is entirely submitted in a single cassette. (1, ns, [id number] 9417 C) CPT Codes 51143 x 3 Specimen: [id number] Received: 08/06/24 Status: MELIDAJerry Ptael Num: [id number] Spec Type: Surgical Subm Dr: Tamika Brink DO Tissues: A Small Intestine - Biopsy/Polyp (SMALL BOWEL BX) B Gastric Biopsy (GASTRIC BX) C Gastric Biopsy (GASTRIC POLYP) Procedures: HE/6, Gross/Micro L4/3 Patient: Nereyda Barker [id number] (Continued) Signed (signature on file) Oleg Ley MD 08/07/24 1103 NormalAdventhealth Ocala Physician GroupNo Panel InformationOrdered By: Tamika Brink on 92-91-6908Xgngejx Glucose CommentGlu2: cleaned [facility] HospitalProthrombin time (PT)Ordered By: Tamika Brink on 48-64-3677PK Coag (PPP) [Time]13.0 sHigh9.0-12.9[facility] HospitalComment on above: A hematocrit value greater than 55% may lead to inaccurate results in coagulation testing. Patientshaving hematocrit values >55% require a special collection tube for coagulation studies. Please contact the laboratory at [phone] for redraw instructions.Result Comment: A hematocrit value greater than 55% may lead to inaccurate results in coagulation testing. Patients having hematocrit values >55% require a special collection tube for coagulation studies. Please contact the laboratory at [phone] for redraw instructions.Performed By: #### CBC, ESR, CMP #### [facility] [address] [place] [address] USAECG 12 [place] 57-26-1040Fopyee sinus rhythm with occasional PACs and PVCsCPACSNorwalk Memorial Hospital Work Phone: No Panel Informationon 96-38-1225Wecrgwr INR (LAB)3.2 [facility] HospitalBasophils Auto (Bld) [#/Vol]Ordered By: Tamika Brink on 57-61-3422Ccwlykewj (Bld) [#/Vol]Automated basophil count0.0-0.2 [facility] HospitalBasophils [#/volume] in Blood by Automated countOrdered By: Tamika Brink on 25-00-2991Fbbihmtnj (Bld) [#/Vol]0.0 10*3/uL Normal0.0-0.2FUC HealthComment on above:Result Comment: PERFORMED BY: [place] [address] PATHOLOGIST ARE[employer] CAPTAIN SEAN VALDEZ M.D.Performed By: #### CBC, ESR, CMP #### [place] [address] USABasophils/100 WBC Auto (Bld)Ordered By: Tamika Ly on 94-20-0670Rgtheyvsl/100 WBC (Bld)Automated basophil %.[facility] HospitalBasophils/100 leukocytes in Blood by Automated countOrdered By: Tamika Ly on 08-29-6818Vtlvaqptg/100 WBC (Bld)0.6 %Normal.[facility] HospitalComment on above:Performed By: #### CBC, ESR, CMP #### [place] [address] USAComplete Blood Count Auto Diffon 26-69-1706Llkp Corpuscular HGB Conc35.3 g/bJBtujdb01.5-35.6[facility] Physician GroupComment on above:Performed By: #### CBC, ESR, CMP #### [place] [address] USANRBC%0.2 /100{WBC}Normal0-0.5[facility] Comment on above:Performed By: #### CBC, ESR, CMP #### [place] [address] USAEosinophils Auto (Bld) [#/Vol]Ordered By: Tamika Ly on 43-17-6178Tpjosctxwev (Bld) [#/Vol]Automated eosinophil count0.0-0.45[facility] HospitalEosinophils [#/volume] in Blood by Automated countOrdered By: Tamika Ly on 21-01-0463Byooncpdrqv (Bld) [#/Vol]0.4 10*3/uLNormal 0.0-0.45[facility] HospitalComment on above:Performed By: #### CBC, ESR, CMP #### [facility] [address] [place] [address] USAEosinophils/100 WBC Auto (Bld)Ordered By: Tamika Ly on 66-29-7817Mlvjxfcizqa/100 WBC (Bld)Automated eosinophil %.[facility] HospitalEosinophils/100 leukocytes in Blood by Automated countOrdered By: Tamika Ly on 25-22-0036Hkpzjfzjqhs/100 WBC (Bld)11.1 %Normal.[facility] HospitalComment on above:Performed By: #### CBC, ESR, CMP #### [place] [address] USAErythrocyte distribution width Auto (RBC) [Ratio]Ordered By: Tamika Ly on 89-61-4029Dhgnmtijccw distribution width (RBC) [Ratio] Erythrocyte distribution width [Ratio] by Automated count12.0-14.8[facility] HospitalErythrocyte distribution width [Ratio] by Automated count Ordered By: Tamika Ly on 84-23-4369Qxelanxluaa distribution width (RBC) [Ratio]13.4 %Ywtmqb18.0-14.8[facility] HospitalComment on above: Performed By: #### CBC, ESR, CMP #### [place] [address] USAErythrocytes [#/volume] in Blood by Automated countOrdered By: Tamika Ly on 54-24-5003NCD (Bld) [#/Vol]4.51 10*6/uLNormal3.90-5.60 [facility] HospitalComment on above:Performed By: #### CBC, ESR, CMP #### [facility] [address] [place] [address] USAHematocrit Auto (Bld) [Volume fraction]Ordered By: Tamika Ly on 54-01-7842Raltimtevl (Bld) [Volume fraction]Hematocrit [Volume Fraction] of Blood by Automated count38.8-50.0[facility] Hematocrit [Volume Fraction] of Blood by Automated countOrdered By: Tamika Brink on 99-40-3371Lftrwxoilh (Bld) [Volume fraction]40.1 %Yohvwf12.8-50.0[facility] HospitalComment on above:Performed By: #### CBC, ESR, CMP #### [facility] [address] [place] [address] USAHemoglobin [Mass/volume] in BloodOrdered By: Tamika Brink on 11-00-7796Gmlltrgrtg (Bld) [Mass/Vol]Hemoglobin [Mass/volume] in Blood 13.0-17.0[facility] HospitalHemoglobin (Bld) [Mass/Vol]14.1 g/dL Ckowpd22.0-17.0[facility] HospitalComment on above:Performed By: #### CBC, ESR, CMP #### [facility] [address] [place] [address] USALeukocytes [#/volume] corrected for nucleated erythrocytes in Blood by Automated counOrdered By: Tamika Brink on 39-19-0514NHT corrected for nucl RBC Auto (Bld) [#/Vol]Leukocytes [#/volume] corrected for nucleated erythrocytes in Blood by Automated counLow4.1-10.5FUC HealthWBC corrected for nucl RBC Auto (Bld) [#/Vol]3.9 10*3/uLLow4.1-10.5 [facility] HospitalLeukocytes [#/volume] in Blood by Automated countOrdered By: Tamika Brink on 60-85-8507WQW (Bld) [#/Vol]3.9 10*3/uLLow 4.1-10.5FUC HealthComment on above:Performed By: #### CBC, ESR, CMP #### [facility] [address] [place] [address] USALymphocytes Auto (Bld) [#/Vol]Ordered By: Tamika Brink on 38-58-7684Kuigeuxszsv (Bld) [#/Vol]Lymphocytes [#/volume] in Blood by Automated count1.00-4.8[facility] HospitalLymphocytes [#/volume] in Blood by Automated countOrdered By: Tamika Ly on 43-89-0990Bphmbyskayz (Bld) [#/Vol] 1.1 10*3/uLNormal1.00-4.8[facility] HospitalComment on above: Performed By: #### CBC, ESR, CMP #### [facility] [address] [place] [address] USALymphocytes/100 WBC Auto (Bld)Ordered By: Tamika Ly on 65-49-9239Ldlqbzcfzqm/100 WBC (Bld)Lymphocytes/100 leukocytes in Blood by Automated count.[facility] HospitalLymphocytes/100 leukocytes in Blood by Automated countOrdered By: Tamika Ly on 36-02-3360Uzxxlavfmqr/100 WBC (Bld)28.3 %Normal.[facility] HospitalComment on above: Performed By: #### CBC, ESR, CMP #### [place] [id number] [facility] [place] ([place]BC) [Entitic mass]Ordered By: Tamika Ly on 82-65-9543PNA (RBC) [Entitic mass][facility] [Entitic mass] by Automated count27.5-35.2 [facility] [Entitic mass] by Automated countOrdered By: Tamika Ly on 15-17-1753QQP (RBC) [Entitic mass]31.3 dxJcawjg16.5-35.2 [facility] HospitalComment on above:Performed By: #### CBC, ESR, CMP #### [place] [id number] [facility] Auto (RBC) [Mass/Vol]Ordered By: Tamika Ly on 69-07-7718ILUY (RBC) [Mass/Vol]MCHC [Mass/volume] by Automated count32.5-35.6 [facility] (RBC) [Mass/Vol]35.3 g/dL32.5-35.6 [facility] HospitalV Auto (RBC) [Entitic vol]Ordered By: Tamika Ly on 52-54-0290LPO (RBC) [Entitic vol]MCV [Entitic volume] by Automated count83.5-101[facility] HospitalMCV [Entitic volume] by Automated countOrdered By: Tamika Ly on 77-93-3416SBD (RBC) [Entitic vol]88.8 jPEajsew18.5-101[facility] HospitalComment on above:Performed By: #### CBC, ESR, CMP #### [facility] [address] [id number] USAMonocytes Auto (Bld) [#/Vol]Ordered By: Tamika Ly on 79-13-0025Gnbrvwrdx (Bld) [#/Vol]Automated blood monocyte count0.0-0.8[facility] HospitalMonocytes [#/volume] in Blood by Automated countOrdered By: Tamika Ly on 65-46-5659Tqwosdcop (Bld) [#/Vol]0.3 10*3/uLNormal0.0-0.8 [facility] HospitalComment on above:Performed By: #### CBC, ESR, CMP #### [facility] [address] [id number] USAMonocytes/100 WBC Auto (Bld)Ordered By: Tamika Ly on 40-12-4315Wkmnbujcu/100 WBC (Bld)Automated monocyte %.[facility] HospitalMonocytes/100 leukocytes in Blood by Automated countOrdered By: Tamika Ly on 53-57-9365Kmbxqcwza/100 WBC (Bld)6.9 %Normal.[facility] HospitalComment on above:Performed By: #### CBC, ESR, CMP #### [place] [id number] USANeutrophils Auto (Bld) [#/Vol]Ordered By: Tamika Ly on 59-74-5653Wwgtxdsuddh (Bld) [#/Vol]Neutrophils [#/volume] in Blood by Automated count1.8-7.7FUC HealthNeutrophils [#/volume] in Blood by Automated countOrdered By: Tamika Ly on 27-02-9908Ktuyapftpsm (Bld) [#/Vol] 2.1 10*3/uLNormal1.8-7.7FUC HealthComment on above: Performed By: #### CBC, ESR, CMP #### [facility] [address] [place] [address] USANeutrophils/100 WBC Auto (Bld)Ordered By: Tamika Ly on 33-01-3725Xkaqsujcfoo/100 WBC (Bld)Automated neutrophil %.[facility] HospitalNeutrophils/100 leukocytes in Blood by Automated countOrdered By: Tamika Ly on 40-23-1541Svsdhrrqhkm/100 WBC (Bld)53.1 %Normal.[facility] HospitalComment on above:Performed By: #### CBC, ESR, CMP #### [facility] [address] [place] [address] USANucleated erythrocytes [Presence] in Blood by Automated countOrdered By: Tamika Ly on 31-64-3976Unqgtisih RBC Auto Ql (Bld)Nucleated erythrocytes [Presence] in Blood by Automated count0-0.5FUC HealthNucleated RBC Auto Ql (Bld)0.2 /100{WBC}0-0.5FUC HealthPlatelet mean volume Auto (Bld) [Entitic vol]Ordered By: Tamika Ly on 36-36-1917Gztkzqpv mean volume (Bld) [Entitic vol]Platelet mean volume [Entitic volume] in Blood by Automated count6.6-10.1FUC HealthPlatelet mean volume [Entitic volume] in Blood by Automated countOrdered By: Tamika Ly on 15-81-8292Oyubodrv mean volume (Bld) [Entitic vol]8.5 fL Normal6.6-10.1FUC HealthComment on above:Performed By: #### CBC, ESR, CMP #### [facility] [address] [place] [address] USAPlatelets Auto (Bld) [#/Vol]Ordered By: Tamika Ly on 46-40-0282Wyxwnvctm (Bld) [#/Vol]Platelets [#/volume] in Blood by Automated -535SzsvhdkpvPremier Health Miami Valley HospitalPlatelets [#/volume] in Blood by Automated countOrdered By: Tamika Brink on 61-29-2735Ssvevsify (Bld) [#/Vol]177 10*3/bLRveqle949-514PristxpluPremier Health Miami Valley HospitalComment on above:Performed By: #### CBC, ESR, CMP #### [facility] [address] [place] [address] USARBC Auto (Bld) [#/Vol]Ordered By: Tamika Brink on 23-22-1056IUE (Bld) [#/Vol]Erythrocytes [#/volume] in Blood by Automated count 3.90-5.60[facility] HospitalWBC Auto (Bld) [#/Vol]Ordered By: Tamika Brink on 65-01-2830TBX (Bld) [#/Vol]Leukocytes [#/volume] in Blood by Automated countLow4.1-10.5FUC HealthNo Panel Information on 37-22-6995Ufnqvcd INR (LAB)3.2HighPremier Health Miami Valley HospitalCT ABDOMEN PELVIS W IV CONTRASTon [id number] ABDOMEN PELVIS W IV CONTRASTHISTORY: Abnormal lumbar x-rays. TECHNIQUE: CT of the abdomen and pelvis was performed using standard technique with intravenous contrast, scanning from just above the dome of the diaphragm to the symphysis pubis. Including delayed images through the kidneys. Including sagittal and coronal reconstructions on both phases. All CT scans at this facility use dose modulation, iterative reconstruction, and/or weight based dosing when appropriate to reduce radiation dose to as low as reasonably achievable. COMPARISON: Lumbar radiographs 06/18/2024. RESULT: Liver: Diffuse hepatic steatosis. No suspicious mass or lesion. Biliary: Gallbladder unremarkable. No biliary ductal dilation. Pancreas: No mass or duct dilation. Spleen: No mass or splenomegaly. Adrenals: No mass. Kidneys: No mass, calculus or hydronephrosis. Delayed phase imaging unremarkable. GI tract: No dilation or wall thickening. Normal appendix. Diverticulosis without evidence for acute diverticulitis. Lymph nodes: No abdominal or pelvic lymphadenopathy. Mesentery/Peritoneum/Retroperitoneum: No suspicious mass or lesion. No ascites. Vasculature: The celiac axis and SMA are patent. The portal vein and branches, splenic vein, SMV, and hepatic veins are patent. Moderate vascular calcifications of the aorta, without aneurysm. Pelvis: Small fat-containing bilateral inguinal hernias. Small fat-containing periumbilical hernia.Bladder decompressed. No significant free fluid. Bones: No acute osseous findings. Multilevel degenerative changes lumbar spine. DISH within the thoracic spine. Soft tissues: Unremarkable. Lower thorax: Unremarkable. IMPRESSION: No acute process in the abdomen/pelvis. No suspicious mass or lesion. ELECTRONICALLY SIGNED BY: Nick Khan MDNormalNot AvailableXR LUMBAR SPINE 2-3 VIEWSon [id number] LUMBAR SPINE 2-3 VIEWSTitle of exam: XR LUMBAR SPINE 2- 3 VIEWS Reason for exam: Low back pain, radiates to right hip with right leg numbness and tingling Comparison: None 2 images. For counting purposes there are 5 nonrib-bearing type lumbar vertebral bodies. Vertebral body height is maintained. No height loss or angulation. 3.5 mm of anterolisthesis of L4 on L5 without definite spondylolysis. 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 Anterior spurring throughout the lumbar spine. There is an atypical appearance of a heavily calcified abdominal aorta which protrudes anterior with widening of the space between the vertebral bodies and the posterior margin of the aorta.This measures approximately 2.77 cm at the L4 level. Mild dextroconvex curvature of the mid lumbar spine. The sacral struts and sacroiliac joints are preserved. IMPRESSION: 1. Mild lumbar spondylosis. Grade 1 spondylolisthesis of L4 on L5 without spondylolysis. 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 2. There is widening of the prevertebral plane the aorta from the vertebral column. Thisis suspicious for a mass lesion at this location. CT of the abdomen and pelvis with IV contrast is recommended. This report is generated using voice recognition reporting (Metabolone). On occasion, Metabolone erroneously drops words from the report or replaces the spoken word with a similar sounding word. Please call with any questions/concerns regarding the report. Dictated on: 06/18/2024 2:57 PM 06/18/2024 11:37 AM This report has been electronically signed and approved by the interpreting Radiologist.NormalNot AvailableNo Panel Informationon [id number] INR (LAB)2.7FUC HealthNo Panel Informationon 05-14-2024 Bedside INR (LAB)2.8[facility] HospitalAlanine aminotransferase [Enzymatic activity/volume] in Serum or PlasmaOrdered By: Maximiliano Belle on 88-22-4980VMF [Catalytic activity/Vol]Alanine aminotransferase [Enzymatic activity/volume] in Serum or Plasma7-52[facility] HospitalAlbumin [Mass/volume] in Serum or Plasma by Bromocresol green (BCG) dye binding metho Ordered By: Maximiliano Belle on 05-16-4864Weocgpj BCG dye [Mass/Vol]Albumin [Mass/volume] in Serum or Plasma by Bromocresol green (BCG) dye binding metho 3.5-5.7FUC HealthAlkaline phosphatase [Enzymatic activity/volume] in Serum or PlasmaOrdered By: Maximiliano Belle on 52-91-8259UGO [Catalytic activity/Vol]Alkaline phosphatase [Enzymatic activity/volume] in Serum or Gzfafc38-286JcwfsvfhyPremier Health Miami Valley HospitalAspartate aminotransferase [Enzymatic activity/volume] in Serum or PlasmaOrdered By: Maximiliano Belle on 09-26-5064KAK [Catalytic activity/Vol]Aspartate aminotransferase [Enzymatic activity/volume] in Serum or Tpzrjp88-68FbxzgchcuPremier Health Miami Valley Hospital Basophils Auto (Bld) [#/Vol]Ordered By: Maximiliano Belle on 53-31-2070Swkvdvbqb (Bld) [#/Vol]Automated basophil count0.0-0.2[facility] Health Basophils/100 WBC Auto (Bld)Ordered By: Maximiliano Belle on 04-19-2024 Basophils/100 WBC (Bld)Automated basophil %.[facility] Bilirubin.total [Mass/volume] in Serum or PlasmaOrdered By: Maximiliano Belle on 84-93-5176Qnhdrhpxa [Mass/Vol]Bilirubin.total [Mass/volume] in Serum or Plasma 0.3-1.0[facility] HospitalCalcium [Mass/volume] in Serum or Plasma Ordered By: Maximiliano Belle on 33-93-7672Zuaesqo [Mass/Vol]Calcium [Mass/volume] in Serum or Plasma8.6-10.3FUC HealthCarbon dioxide, total [Moles/volume] in Serum or PlasmaOrdered By: Maximiliano Belle on 56-22-9814FA2 [Moles/Vol]Carbon dioxide, total [Moles/volume] in Serum or Xqcfje74.0-31.0 [facility] HospitalChloride [Moles/volume] in Serum or Plasma Ordered By: Maximiliano Belle on 53-94-5113Nxdmhkjd [Moles/Vol]Chloride [Moles/volume] in Serum or Eakdcw44-830KcwtycecoPremier Health Miami Valley HospitalComplete Blood Count Auto Diffon 78-87-3527Nxssdrweo (Bld) [#/Vol]0.0 10*3/uLNormal 0.0-0.2The [facility] Physician GroupComment on above:Performed By: #### CBC, ESR, CMP #### [place] [address] USABasophils/100 WBC (Bld)1.3 %Normal.The [facility] Physician GroupComment on above:Performed By: #### CBC, ESR, CMP #### [place] [address] USAEosinophils (Bld) [#/Vol]0.5 10*3/uLHigh0.0-0.45The [facility] Physician GroupComment on above:Performed By: #### CBC, ESR, CMP #### [place] [address] USAEosinophils/100 WBC (Bld)12.5 %Normal.The [facility] Physician GroupComment on above:Performed By: #### CBC, ESR, CMP #### [place] [address] USAErythrocyte distribution width (RBC) [Ratio]13.1 %Normal 12.0-14.8The [facility] Physician GroupComment on above:Performed By: #### CBC, ESR, CMP #### [place] [address] USAHematocrit (Bld) [Volume fraction]38.8 %Qyaeab89.8-50.0The [facility] Physician GroupComment on above:Performed By: #### CBC, ESR, CMP #### [place] [address] USAHemoglobin (Bld) [Mass/Vol]13.6 g/rPTclytt47.0-17.0The [facility] Physician GroupComment on above:Performed By: #### CBC, ESR, CMP #### [place] [address] USALymphocytes (Bld) [#/Vol]0.9 10*3/uLLow1.00-4.8The [facility] Physician GroupComment on above:Performed By: #### CBC, ESR, CMP #### [place] [address] USALymphocytes/100 WBC (Bld)24.9 %Normal.The [facility] Physician GroupComment on above:Performed By: #### CBC, ESR, CMP #### [place] [address] USAMCH (RBC) [Entitic mass]31.0 aiGvpssf27.5-35.2The [facility] Physician GroupComment on above:Performed By: #### CBC, ESR, CMP #### [place] [address] USAMCV (RBC) [Entitic vol]88.4 uURpqqhb13.5-101The [facility] Physician GroupComment on above:Performed By: #### CBC, ESR, CMP #### [place] [address] USAMean Corpuscular HGB Conc35.0 g/aDHjvwyi86.5-35.6The [facility] Physician GroupComment on above:Performed By: #### CBC, ESR, CMP #### [place] [address] USAMonocytes (Bld) [#/Vol]0.4 10*3/uLNormal0.0-0.8The [facility] Physician GroupComment on above:Performed By: #### CBC, ESR, CMP #### [place] [address] USAMonocytes/100 WBC (Bld)11.8 %Normal.The [facility] Physician GroupComment on above:Performed By: #### CBC, ESR, CMP #### [facility] [address] [place] [address] USANeutrophils (Bld) [#/Vol]1.8 10*3/uLNormal1.8-7.7The [facility] Physician GroupComment on above:Performed By: #### CBC, ESR, CMP #### [place] [address] USANeutrophils/100 WBC (Bld)49.5 %Normal.The [facility] Physician GroupComment on above:Performed By: #### CBC, ESR, CMP #### [facility] [address] [place] [address] USANRBC%0.0 /100{WBC}Normal0-0.5The [facility] Comment on above:Performed By: #### CBC, ESR, CMP #### [place] [address] USAPlatelet mean volume (Bld) [Entitic vol]8.2 fLNormal 6.6-10.1The [facility] Physician GroupComment on above:Performed By: #### CBC, ESR, CMP #### [place] [address] USAPlatelets (Bld) [#/Vol]176 10*3/rAPuiwkn965-375Enn [facility] Physician GroupComment on above:Performed By: #### CBC, ESR, CMP #### [place] [address] USARBC (Bld) [#/Vol]4.39 10*6/uLNormal3.90-5.60The [facility] Physician GroupComment on above:Performed By: #### CBC, ESR, CMP #### [place] [address] USAWBC (Bld) [#/Vol]3.7 10*3/uLLow4.1-10.5The [facility] Physician GroupComment on above:Performed By: #### CBC, ESR, CMP #### [place] [address] USAComprehensive Metabolic Panelon [id number] [Mass/Vol]4.0 g/dLNormal3.5-5.7The [facility] Physician GroupComment on above: Performed By: #### CBC, CMP, ESR #### [place] [address] USAAlbumin/Globulin [Mass ratio]1.6 {ratio}NormalThe [facility] Stokes Physician GroupComment on above:Performed By: #### CBC, CMP, ESR #### [place] [address] USAALP [Catalytic activity/Vol]45 U/RWtxfea99-121Hjo [facility] Physician GroupComment on above:Result Comment: PERFORMED BY: [place] [address] PATHOLOGIST [employer]TAIN OMAYRA SOSA M.D.Performed By: #### CBC, CMP, ESR #### [place] [address] USAALT [Catalytic activity/Vol]39 U/LNormal7-52The [facility] Physician GroupComment on above:Performed By: #### CBC, CMP, ESR #### [place] [address] USAAnion gap [Moles/Vol]8.2 mmol/LNormal6.0-15.0The [facility] Physician GroupComment on above:Performed By: #### CBC, CMP, ESR #### [place] [address] USAAST [Catalytic activity/Vol]24 U/UQiqipi57-33Slo [facility] Physician GroupComment on above:Performed By: #### CBC, CMP, ESR #### [place] [address] USABilirubin [Mass/Vol]0.4 mg/dLNormal0.3-1.0The [facility] Physician GroupComment on above:Performed By: #### CBC, CMP, ESR #### [place] [address] USACalcium [Mass/Vol]9.2 mg/dLNormal8.6-10.3The [facility] Physician GroupComment on above:Performed By: #### CBC CMP, ESR #### [facility] [address] [place] [address] USAChloride [Moles/Vol]102 mmol/KRhcgyr45-328Sow [facility] Physician GroupComment on above:Performed By: #### CBC, CMP, ESR #### [facility] [address] [place] [address] USACO2 [Moles/Vol]27.8 mmol/RDxvqzk32.0-31.0The [facility] Physician GroupComment on above:Performed By: #### REGINALDO CMP, ESR #### [place] [address] USACreatinine [Mass/Vol]0.82 mg/dLNormal0.70-1.30The [facility] Physician GroupComment on above:Performed By: #### CBC CMP, ESR #### [place] [address] USAGFR/1.73 sq M.predicted MDRD (S/P/Bld) [Vol rate/Area] mL/min/{1.73_m2}NormalThe [facility] Physician GroupComment on above:Performed By: #### REGINALDO CMP, ESR #### [place] [address] USAGlobulin (S) [Mass/Vol]2.5 g/dLNormalThe [facility] Physician GroupComment on above:Performed By: #### CBC, CMP, ESR #### [place] [address] USAGlucose [Mass/Vol]227 mg/bRNsnu89-917Ehs [facility] Physician GroupComment on above:Result Comment: Random Glucose Reference Range is dependent on time and content of last meal. Glucose of more than 200 mg/dL in a nonstressed, ambulatory subject supports the diagnosis of Diabetes Mellitus. ADA recommended reference rangePerformed By: #### CBC, CMP, ESR #### [place] [address] USAPotassium [Moles/Vol]4.0 mmol/LNormal3.5-5.1The [facility] Physician GroupComment on above:Performed By: #### CBC, CMP, ESR #### [facility] [address] [place] [address] USAProtein [Mass/Vol]6.5 g/dLNormal6.4-8.9The [facility] Physician GroupComment on above:Performed By: #### CBC, CMP, ESR #### [facility] [address] [place] [address] USASodium [Moles/Vol]134 mmol/NPyo557-454Jib [facility] Physician GroupComment on above:Performed By: #### CBC, CMP, ESR #### [facility] [address] [place] [address] USAUrea nitrogen [Mass/Vol]13 mg/dLNormal7-25The [facility] Physician GroupComment on above:Performed By: #### CBC, CMP, ESR #### [facility] [address] [place] [address] USACreatinine [Mass/volume] in Serum or PlasmaOrdered By: Maximiliano Belle on 32-19-4515Mlpizdfbdk [Mass/Vol]Creatinine [Mass/volume] in Serum or Plasma0.70-1.30[facility] HospitalEosinophils Auto (Bld) [#/Vol]Ordered By: Maximiliano Belle on 22-63-4421Krxvuhowrwl (Bld) [#/Vol] Automated eosinophil countHigh0.0-0.45[facility] Eosinophils/100 WBC Auto (Bld)Ordered By: Maximiliano Belle on 04-19-2024 Eosinophils/100 WBC (Bld)Automated eosinophil %.[facility] HospitalErythrocyte Sedimentation Rateon 64-63-9304QHU (Bld) [Velocity]7 mm/h Normal0-19The [facility] Physician GroupComment on above:Result Comment: PERFORMED BY: [place] [address] PATHOLOGIST [employer] OMAYRA SOSA M.D.Performed By: #### CBC, ESR, CMP #### [facility] [address] [id number] [facility]OS[facility]ITALErythrocyte distribution width Auto (RBC) [Ratio]Ordered By: Maximiliano Belle on 79-85-9109Gvdnmhpdicw distribution width (RBC) [Ratio] Erythrocyte distribution width [Ratio] by Automated count12.0-14.8[facility] HospitalErythrocyte sedimentation rate by Photometric method Ordered By: Maximiliano Belle on 10-62-3238AJT Photometric method (Bld) [Velocity] Erythrocyte sedimentation rate by Photometric method0-19[facility] HospitalGlobulin Calc (S) [Mass/Vol]Ordered By: Maximiliano Belle on 41-35-5512Gehzcrnk (S) [Mass/Vol]Serum globulin measurement by calculation (mass/volume)[facility] HospitalGlucose [Mass/volume] in Serum or PlasmaOrdered By: Maximiliano Belle on 60-96-8997Pzusgmr [Mass/Vol]Glucose [Mass/volume] in Serum or HqatpwPhyu35-399JaaiusemgPremier Health Miami [facility] Hospital Comment on above:ADA recommended reference rangeRandom Glucose Reference Range is dependent on time and content of last meal. Glucose of more than 200 mg/dL in a nonstressed, ambulatory subject supports the diagnosisof Diabetes Mellitus. Hematocrit Auto (Bld) [Volume fraction]Ordered By: Maximiliano Belle on 04-19-2024 Hematocrit (Bld) [Volume fraction]Hematocrit [Volume Fraction] of Blood by Automated count38.8-50.0[facility] HospitalHemoglobin [Mass/volume] in BloodOrdered By: Maximiliano Belle on 98-26-2144Kugthzqtxd (Bld) [Mass/Vol]Hemoglobin [Mass/volume] in Blood13.0-17.0[facility] HospitalLeukocytes [#/volume] corrected for nucleated erythrocytes in Blood by Automated counOrdered By: Maximiliano Belle on 44-93-8127YYX corrected for nucl RBC Auto (Bld) [#/Vol]Leukocytes [#/volume] corrected for nucleated erythrocytes in Blood by Automated counLow4.1-10.5FUC HealthLymphocytes Auto (Bld) [#/Vol]Ordered By: Maximiliano Belle on 10-79-2126Tlvoozyxldm (Bld) [#/Vol]Lymphocytes [#/volume] in Blood by Automated countLow1.00-4.8[facility] HospitalLymphocytes/100 WBC Auto (Bld)Ordered By: Maximiliano Belle on 35-67-9305Sogreffwqyo/100 WBC (Bld)Lymphocytes/100 leukocytes in Blood by Automated count.[facility] HospitalMCH Auto (RBC) [Entitic mass] Ordered By: Maximiliano Belle on 04-13-4462HBU (RBC) [Entitic mass]MCH [Entitic mass] by Automated count27.5-35.2FUC HealthMCHC Auto (RBC) [Mass/Vol]Ordered By: Maximiliano Belle on 28-32-3192JLVC (RBC) [Mass/Vol] MCHC [Mass/volume] by Automated count32.5-35.6[facility] MCV Auto (RBC) [Entitic vol]Ordered By: Maximiliano Belle on 94-64-1345KEW (RBC) [Entitic vol]MCV [Entitic volume] by Automated count83.5-101[facility] HospitalMonocytes Auto (Bld) [#/Vol]Ordered By: Maximiliano Belle on 37-59-5267Gukmqtsdx (Bld) [#/Vol]Automated blood monocyte count0.0-0.8[facility] HospitalMonocytes/100 WBC Auto (Bld)Ordered By: Maximiliano Belle on 98-44-3243Rvlspottw/100 WBC (Bld)Automated monocyte %.[facility] HospitalNeutrophils Auto (Bld) [#/Vol]Ordered By: Maximiliano Belle on 48-79-6777Btbbhwjzrvz (Bld) [#/Vol]Neutrophils [#/volume] in Blood by Automated count1.8-7.7FUC HealthNeutrophils/100 WBC Auto (Bld) Ordered By: Maximiliano Belle on 38-28-9769Jxlhnocccav/100 WBC (Bld)Automated neutrophil %.[facility] HospitalNo Panel InformationOrdered By: Maximiliano Belle on 38-19-3504Syxpauron GFR (CKD-EPI)> 60.0 mL/MinPremier Health Miami Valley HospitalPharmacy Creatinine Clearance (ChemN/AFUC HealthNucleated erythrocytes [Presence] in Blood by Automated count Ordered By: Maximiliano Belle on 95-84-4295Tboxwleyl RBC Auto Ql (Bld)Nucleated erythrocytes [Presence] in Blood by Automated count0-0.5FUC HealthPlatelet mean volume Auto (Bld) [Entitic vol]Ordered By: Maximiliano Belle on 86-62-8276Nizcifcw mean volume (Bld) [Entitic vol]Platelet mean volume [Entitic volume] in Blood by Automated count6.6-10.1FUC HealthPlatelets Auto (Bld) [#/Vol]Ordered By: Maximiliano Belle on 04-19-2024 Platelets (Bld) [#/Vol]Platelets [#/volume] in Blood by Automated -558 [facility] HospitalPotassium [Moles/volume] in Serum or Plasma Ordered By: Maximiliano Belle on 44-01-1900Odtpsqzkt [Moles/Vol]Potassium [Moles/volume] in Serum or Plasma3.5-5.1FUC HealthProtein [Mass/volume] in Serum or PlasmaOrdered By: Maximiliano Belle on 78-05-5111Zghiqlw [Mass/Vol]Protein [Mass/volume] in Serum or Plasma6.4-8.9[facility] HospitalRBC Auto (Bld) [#/Vol]Ordered By: Maximiliano Belle on 46-73-2914RTU (Bld) [#/Vol]Erythrocytes [#/volume] in Blood by Automated count3.90-5.60 [facility] Medical Centererum or plasma albumin/globulin mass ratio Ordered By: Maximiliano Belle on 19-30-3510Emaktjw/Globulin [Mass ratio]Serum or plasma albumin/globulin mass ratioCincinnati Children's Hospital Medical Centererum or plasma anion gap determinationOrdered By: Maximiliano Belle on 55-91-6581Qwgzg gap [Moles/Vol]Serum or plasma anion gap determination6.0-15.0[facility] Medical Centerodium [Moles/volume] in Serum or PlasmaOrdered By: Maximiliano Belle on 34-53-0353Lgaeqq [Moles/Vol]Sodium [Moles/volume] in Serum or PlasmaLow 136-145[facility] HospitalUrea nitrogen [Mass/volume] in Serum or PlasmaOrdered By: Maximiliano Belle on 16-74-2534Okdl nitrogen [Mass/Vol]Urea nitrogen [Mass/volume] in Serum or Plasma09-14[facility] WBC Auto (Bld) [#/Vol]Ordered By: Maximiliano Belle on 58-86-2232APF (Bld) [#/Vol] Leukocytes [#/volume] in Blood by Automated countLow4.1-10.5FUC HealthXR HIP 2 OR 3 VW RIGHTon 62-91-5593TD HIP 2 OR 3 VW RIGHTXR HIP 2 OR 3 VW RIGHT Reason for exam: Right lateral posterior hip pain for one month, no injury Views: 3 Findings: The alignment is normal. No fracture, dislocation or other acute pathology is demonstrated. No soft tissue abnormalities are seen. Impression: Negative exam. Dictated on: 04/17/2024 7:42 AM This report has been electronically signed and approved by the interpreting Radiologist.NormalNot AvailableNo Panel Informationon 81-88-2680Mvytpqo INR (LAB)2.5FUC HealthNo Panel Informationon 03-29-2024 Bedside INR (LAB)3.0[facility] HospitalNo Panel Informationon 01-62-9416Zlmdydr INR (LAB)3.0[facility] HospitalNo Panel Informationon 36-67-0970Vhzfcxk INR (LAB)2.9[facility] Alanine aminotransferase [Enzymatic activity/volume] in Serum or PlasmaOrdered By: Maximiliano Belle on 36-56-6375QAL [Catalytic activity/Vol]Alanine aminotransferase [Enzymatic activity/volume] in Serum or PlasmaPremier Health Miami Valley HospitalAlbumin [Mass/volume] in Serum or Plasma by Bromocresol green (BCG) dye binding methoOrdered By: Maximiliano Belle on 47-42-9346Buvrqrc BCG dye [Mass/Vol]Albumin [Mass/volume] in Serum or Plasma by Bromocresol green (BCG) dye binding metho3.5-5.7FUC HealthAlkaline phosphatase [Enzymatic activity/volume] in Serum or PlasmaOrdered By: Maximiliano Belle on 34-88-6432EHH [Catalytic activity/Vol]Alkaline phosphatase [Enzymatic activity/volume] in Serum or Madtxk11-168LzyagsjkqPremier Health [facility] Hospital Aspartate aminotransferase [Enzymatic activity/volume] in Serum or PlasmaOrdered By: Maximiliano Belle on 45-65-7237UED [Catalytic activity/Vol]Aspartate aminotransferase [Enzymatic activity/volume] in Serum or Ulccqe44-40PfaozgbzvPremier Health Miami Valley HospitalBasophils Auto (Bld) [#/Vol]Ordered By: Maximiliano Belle on 98-98-9333Ntncabogs (Bld) [#/Vol]Automated basophil count0.0-0.2FUC HealthBasophils/100 WBC Auto (Bld)Ordered By: Maximiliano Belle on 27-07-1118Tzpauepsk/100 WBC (Bld)Automated basophil %.[facility] HospitalBilirubin.total [Mass/volume] in Serum or PlasmaOrdered By: Maximiliano Belle on 37-76-4929Uujsfifkg [Mass/Vol]Bilirubin.total [Mass/volume] in Serum or Plasma0.3-1.0[facility] HospitalCalcium [Mass/volume] in Serum or PlasmaOrdered By: Maximiliano Belle on 37-43-9460Sorqqzk [Mass/Vol] Calcium [Mass/volume] in Serum or Plasma8.6-10.3FUC HealthCarbon dioxide, total [Moles/volume] in Serum or PlasmaOrdered By: Maximiliano Belle on 64-24-8198KJ3 [Moles/Vol]Carbon dioxide, total [Moles/volume] in Serum or Dcuses23.0-31.0[facility] HospitalChloride [Moles/volume] in Serum or PlasmaOrdered By: Maximiliano Belle on 21-80-2194Lbknwcnr [Moles/Vol] Chloride [Moles/volume] in Serum or Gbdgya65-362QihwmfzdzPremier Health Miami Valley HospitalComplete Blood Count Auto Diffon 29-89-2844Tgzuiirds (Bld) [#/Vol]0.1 10*3/uLNormal0.0-0.2The [facility] Physician GroupComment on above:Performed By: #### CBC, ESR, CMP #### [place] [address] USABasophils/100 WBC (Bld)1.5 %Normal.The [facility] Physician GroupComment on above:Performed By: #### CBC, ESR, CMP #### [place] [address] USAEosinophils (Bld) [#/Vol]0.4 10*3/uLNormal0.0-0.45The [facility] Physician GroupComment on above:Performed By: #### CBC, ESR, CMP #### [place] [address] USAEosinophils/100 WBC (Bld)11.9 %Normal.The [facility] Physician GroupComment on above:Performed By: #### CBC, ESR, CMP #### [place] [address] USAErythrocyte distribution width (RBC) [Ratio]13.1 %Normal 12.0-14.8The [facility] Physician GroupComment on above:Performed By: #### CBC, ESR, CMP #### [place] [address] USAHematocrit (Bld) [Volume fraction]41.5 %Iiudjw20.8-50.0The [facility] Physician GroupComment on above:Performed By: #### CBC, ESR, CMP #### [place] [address] USAHemoglobin (Bld) [Mass/Vol]14.3 g/hMDfpoga02.0-17.0The [facility] Physician GroupComment on above:Performed By: #### CBC, ESR, CMP #### [place] [address] USALymphocytes (Bld) [#/Vol]0.9 10*3/uLLow1.00-4.8The [facility] Physician GroupComment on above:Performed By: #### CBC, ESR, CMP #### [place] [address] USALymphocytes/100 WBC (Bld)24.9 %Normal.The [facility] Physician GroupComment on above:Performed By: #### CBC, ESR, CMP #### [facility] [address]H (RBC) [Entitic mass]31.3 jaJeoadf95.5-35.2The [facility] Physician GroupComment on above:Performed By: #### CBC, ESR, CMP #### [address]V (RBC) [Entitic vol]91.2 cRHsqcnm64.5-101The [facility] Physician GroupComment on above:Performed By: #### CBC, ESR, CMP #### [place] [address] USAMean Corpuscular HGB Conc34.4 g/pLMzxexg95.5-35.6The [facility] Physician GroupComment on above:Performed By: #### CBC, ESR, CMP #### [place] [address] USAMonocytes (Bld) [#/Vol]0.5 10*3/uLNormal0.0-0.8The [facility] Physician GroupComment on above:Performed By: #### CBC, ESR, CMP #### [place] [address] USAMonocytes/100 WBC (Bld)14.3 %Normal.The [facility] Physician GroupComment on above:Performed By: #### CBC, ESR, CMP #### [place] [address] USANeutrophils (Bld) [#/Vol]1.7 10*3/uLLow1.8-7.7The [facility] Physician GroupComment on above:Performed By: #### CBC, ESR, CMP #### [place] [address] USANeutrophils/100 WBC (Bld)47.4 %Normal.The [facility] Physician GroupComment on above:Performed By: #### CBC, ESR, CMP #### [place] [address] USANRBC%0.2 /100{WBC}Normal0-0.5The [facility] Comment on above:Performed By: #### CBC, ESR, CMP #### [place] [address] USAPlatelet mean volume (Bld) [Entitic vol]8.3 fLNormal 6.6-10.1The [facility] Physician GroupComment on above:Performed By: #### CBC, ESR, CMP #### [place] [address] USAPlatelets (Bld) [#/Vol]200 10*3/uBIxmtcz380-367Daw [facility] Physician GroupComment on above:Performed By: #### CBC, ESR, CMP #### [place] [address] USARBC (Bld) [#/Vol]4.55 10*6/uLNormal3.90-5.60The [facility] Physician GroupComment on above:Performed By: #### CBC, ESR, CMP #### [place] [address] USAWBC (Bld) [#/Vol]3.6 10*3/uLLow4.1-10.5The [facility] Physician GroupComment on above:Performed By: #### CBC, ESR, CMP #### [place] [address] USAComprehensive Metabolic Panelon 69-54-4365Jbtkqgi [Mass/Vol]4.1 g/dLNormal3.5-5.7The [facility] Physician GroupComment on above: Performed By: #### CBC, ESR, CMP #### [place] [address] USAAlbumin/Globulin [Mass ratio]1.5 {ratio}NormalThe [facility] Physician GroupComment on above:Performed By: #### CBC, ESR, CMP #### [place] [address] USAALP [Catalytic activity/Vol]52 U/ZGlrubg58-354Bnc [facility] Physician GroupComment on above:Result Comment: PERFORMED BY: [address] [place] [address] PATHOLOGIST AREA CAPTAIN OMAYRA SOSA M.D.Performed By: #### CBC, ESR, CMP #### [place] [address] USAALT [Catalytic activity/Vol]30 U/LNormal7-52The [facility] Physician GroupComment on above:Performed By: #### CBC, ESR, CMP #### [place] [address] USAAnion gap [Moles/Vol]10.0 mmol/LNormal6.0-15.0The [facility] Physician GroupComment on above:Performed By: #### CBC, ESR, CMP #### [place] [address] USAAST [Catalytic activity/Vol]19 U/SMqwhov97-59Itu [facility] Physician GroupComment on above:Performed By: #### CBC, ESR, CMP #### [place] [address] USABilirubin [Mass/Vol]0.5 mg/dLNormal0.3-1.0The [facility] Physician GroupComment on above:Performed By: #### CBC, ESR, CMP #### [place] [address] USACalcium [Mass/Vol]9.4 mg/dLNormal8.6-10.3The [facility] Physician GroupComment on above:Performed By: #### CBC, ESR, CMP #### [place] [address] USAChloride [Moles/Vol]101 mmol/KGfcxhz45-499Ybr [facility] Physician GroupComment on above:Performed By: #### CBC, ESR, CMP #### [place] [address] USACO2 [Moles/Vol]27.1 mmol/JEbroec75.0-31.0The [facility] Physician GroupComment on above:Performed By: #### CBC, ESR, CMP #### [place] [address] USACreatinine [Mass/Vol]0.74 mg/dLNormal0.70-1.30The [facility] Physician GroupComment on above:Performed By: #### CBC, ESR, CMP #### [facility] [address] [place] [address] USAGFR/1.73 sq M.predicted MDRD (S/P/Bld) [Vol rate/Area] mL/min/{1.73_m2}NormalThe [facility] Physician GroupComment on above:Performed By: #### CBC, ESR, CMP #### [facility] [address] [place] [address] USAGlobulin (S) [Mass/Vol]2.7 g/dLNormalThe [facility] Physician GroupComment on above:Performed By: #### CBC, ESR, CMP #### [place] [address] USAGlucose [Mass/Vol]132 mg/fZLmnw62-227Lfw [facility] Physician GroupComment on above:Result Comment: Random Glucose Reference Range is dependent on time and content of last meal. Glucose of more than 200 mg/dL in a nonstressed, ambulatory subject supports the diagnosis of Diabetes Mellitus. ADA recommended reference rangePerformed By: #### CBC, ESR, CMP #### [place] [address] USAPotassium [Moles/Vol]4.1 mmol/LNormal3.5-5.1The [facility] Physician GroupComment on above:Performed By: #### CBC, ESR, CMP #### [facility] [address] [place] [address] USAProtein [Mass/Vol]6.8 g/dLNormal6.4-8.9The [facility] Physician GroupComment on above:Performed By: #### CBC, ESR, CMP #### [facility] [address] [place] [address] USASodium [Moles/Vol]134 mmol/GOuf469-462Nun [facility] Physician GroupComment on above:Performed By: #### CBC, ESR, CMP #### [facility] [address] [place] [address] USAUrea nitrogen [Mass/Vol]18 mg/dLNormal7-e [facility] Physician GroupComment on above:Performed By: #### CBC, ESR, CMP #### [facility] [address] [place] [address] USACreatinine [Mass/volume] in Serum or PlasmaOrdered By: Maximiliano Belle on 25-51-9175Yirldhyzif [Mass/Vol]Creatinine [Mass/volume] in Serum or Plasma0.70-1.30[facility] HospitalEosinophils Auto (Bld) [#/Vol]Ordered By: Maximiliano Belle on 41-71-0671Pzrljknkdaf (Bld) [#/Vol] Automated eosinophil count0.0-0.45[facility] Eosinophils/100 WBC Auto (Bld)Ordered By: Maximiliano Belle on 01-17-2024 Eosinophils/100 WBC (Bld)Automated eosinophil %.[facility] HospitalErythrocyte Sedimentation Rateon 92-64-0978PMJ (Bld) [Velocity]14 mm/h Normal0-The [facility] Physician GroupComment on above:Result Comment: PERFORMED BY: [place] [address] PATHOLOGIST ARE[employer] CAPTAIN OMAYRA SOSA M.D.Performed By: #### CBC, ESR, CMP #### [facility] [address] [place] [address] USAErythrocyte distribution width Auto (RBC) [Ratio]Ordered By: Maximiliano Belle on 70-16-9367Bhfgcbzozdy distribution width (RBC) [Ratio] Erythrocyte distribution width [Ratio] by Automated count12.0-14.8[facility] HospitalErythrocyte sedimentation rate by Photometric method Ordered By: Maximiliano Belle on 86-25-7919FLQ Photometric method (Bld) [Velocity] Erythrocyte sedimentation rate by Photometric method0[facility] HospitalGlobulin Calc (S) [Mass/Vol]Ordered By: Maximiliano Belle on 96-14-5781Tejvppwd (S) [Mass/Vol]Serum globulin measurement by calculation (mass/volume)[facility] HospitalGlucose [Mass/volume] in Serum or PlasmaOrdered By: Maximiliano Belle on 98-87-8248Yclhutf [Mass/Vol]Glucose [Mass/volume] in Serum or BjgjlcPvns19-995JqihwlivcPrem[facility] Hospital Comment on above:ADA recommended reference rangeRandom Glucose Reference Range is dependent on time and content of last meal. Glucose of more than 200 mg/dL in a nonstressed, ambulatory subject supports the diagnosisof Diabetes Mellitus. Hematocrit Auto (Bld) [Volume fraction]Ordered By: Maximiliano Belle on 01-17-2024 Hematocrit (Bld) [Volume fraction]Hematocrit [Volume Fraction] of Blood by Automated count38.8-50.0[facility] HospitalHemoglobin [Mass/volume] in BloodOrdered By: Maximiliano Belle on 56-57-9699Mzxdjotmlm (Bld) [Mass/Vol]Hemoglobin [Mass/volume] in Blood13.0-17.0[facility] HospitalLeukocytes [#/volume] corrected for nucleated erythrocytes in Blood by Automated counOrdered By: Maximiliano Belle on 19-79-5824LLP corrected for nucl RBC Auto (Bld) [#/Vol]Leukocytes [#/volume] corrected for nucleated erythrocytes in Blood by Automated counLow4.1-10.5FUC HealthLymphocytes Auto (Bld) [#/Vol]Ordered By: Maximiliano Belle on 79-06-1828Kbqmowhgjps (Bld) [#/Vol]Lymphocytes [#/volume] in Blood by Automated countLow1.00-4.8[facility] HospitalLymphocytes/100 WBC Auto (Bld)Ordered By: Maximiliano Belle on 42-43-1151Tbhgvsgukew/100 WBC (Bld)Lymphocytes/100 leukocytes in Blood by Automated count.[facility] HospitalH Auto (RBC) [Entitic mass] Ordered By: Maximiliano Belle on 92-96-6175TEF (RBC) [Entitic mass]MCH [Entitic mass] by Automated count27.5-35.2FTrinity Health System Twin City Medical CenterHC Auto (RBC) [Mass/Vol]Ordered By: Maximiliano Belle on 24-41-5213GUCJ (RBC) [Mass/Vol] MCHC [Mass/volume] by Automated count32.5-35.6[facility] MCV Auto (RBC) [Entitic vol]Ordered By: Maximiliano Belle on 11-81-3006WUP (RBC) [Entitic vol]MCV [Entitic volume] by Automated count83.5-101[facility] HospitalMonocytes Auto (Bld) [#/Vol]Ordered By: Maximiliano Belle on 36-27-6977Uozbdktwm (Bld) [#/Vol]Automated blood monocyte count0.0-0.8[facility] HospitalMonocytes/100 WBC Auto (Bld)Ordered By: Maximiliano Belle on 07-66-1833Epjvhmniv/100 WBC (Bld)Automated monocyte %.[facility] HospitalNeutrophils Auto (Bld) [#/Vol]Ordered By: Maximiliano Belle on 25-27-8749Uvpcbfzyazm (Bld) [#/Vol]Neutrophils [#/volume] in Blood by Automated countLow1.8-7.7FUC HealthNeutrophils/100 WBC Auto (Bld) Ordered By: Maximiliano Belle on 23-91-0645Riyutswmdxf/100 WBC (Bld)Automated neutrophil %.[facility] HospitalNo Panel InformationOrdered By: Maximiliano Belle on 21-18-7492Gajxpxqwf GFR (CKD-EPI)> 60.0 mL/MinPremier Health Miami Valley HospitalPharmacy Creatinine Clearance (ChemN/AFUC HealthNucleated erythrocytes [Presence] in Blood by Automated count Ordered By: Maximiliano Belle on 39-84-4619Mmjotwjqx RBC Auto Ql (Bld)Nucleated erythrocytes [Presence] in Blood by Automated count0-0.5FUC HealthPlatelet mean volume Auto (Bld) [Entitic vol]Ordered By: Maximiliano Belle on 40-58-8893Sqqxdaat mean volume (Bld) [Entitic vol]Platelet mean volume [Entitic volume] in Blood by Automated count6.6-10.1FUC HealthPlatelets Auto (Bld) [#/Vol]Ordered By: Maximiliano Belle on 01-17-2024 Platelets (Bld) [#/Vol]Platelets [#/volume] in Blood by Automated jytir104-687 [facility] HospitalPotassium [Moles/volume] in Serum or Plasma Ordered By: Maximiliano Belle on 48-95-3876Vguicrrzv [Moles/Vol]Potassium [Moles/volume] in Serum or Plasma3.5-5.1FUC HealthProtein [Mass/volume] in Serum or PlasmaOrdered By: Maximiliano Belle on 27-38-6753Xcsejws [Mass/Vol]Protein [Mass/volume] in Serum or Plasma6.4-8.9[facility] HospitalRBC Auto (Bld) [#/Vol]Ordered By: Maximiliano Belle on 51-45-3288GGX (Bld) [#/Vol]Erythrocytes [#/volume] in Blood by Automated count3.90-5.60 [facility] Medical Centererum or plasma albumin/globulin mass ratio Ordered By: Maximiliano Belle on 00-70-1234Enenqlf/Globulin [Mass ratio]Serum or plasma albumin/globulin mass ratioCincinnati Children's Hospital Medical Centererum or plasma anion gap determinationOrdered By: Maximiliano Belle on 81-51-2507Xaxbj gap [Moles/Vol]Serum or plasma anion gap determination6.0-15.0[facility] Medical Centerodium [Moles/volume] in Serum or PlasmaOrdered By: Maxmiiliano Belle on 29-73-4611Ncggli [Moles/Vol]Sodium [Moles/volume] in Serum or PlasmaLow 136-145[facility] HospitalUrea nitrogen [Mass/volume] in Serum or PlasmaOrdered By: Maximiliano Belle on 50-17-0763Svjd nitrogen [Mass/Vol]Urea nitrogen [Mass/volume] in Serum or Plasma7-25[facility] WBC Auto (Bld) [#/Vol]Ordered By: Maximiliano Belle on 76-99-3989LOA (Bld) [#/Vol] Leukocytes [#/volume] in Blood by Automated countLow4.1-10.5FUC HealthNo Panel Informationon 48-71-7510Guuieyr INR (LAB)3.0[facility] HospitalNo Panel Informationon 08-08-8181Xodmyoe INR (LAB)3.1 [facility] HospitalNo Panel Informationon 41-38-5857Sxaxaif INR (LAB)2.8[facility] HospitalECG 12 Leadon 22-67-7156Pjfgz rhythm with occasional PVCs, heart rate 76 bpmCPLake County Memorial Hospital - West Work Phone: No Panel Informationon 58-78-4137Cachcni INR (LAB)1.6 [facility] Medical CenterActivated partial thromboplastin time (aPTT) in platelet poor plasma by coagulation aOrdered By: Tamika Brink on 11-03-2023 aPTT Coag (PPP) [Time]34.1 s25.1-36.5FUC HealthComment on above:A hematocrit value greater than 55% may lead to inaccurate results in coagulation testing. Patientshaving hematocrit values >55% require a special collection tube for coagulation studies. Please contact the laboratory at [phone] for redraw instructions.Automated basophil %Ordered By: Tamika Brink on 70-51-6871Tlhyfbjzd/100 WBC (Bld)2.4 %Normal.[facility] HospitalComment on above:Performed By: #### CBC, ESR, CMP #### [facility] [address] [place] [address] USAAutomated basophil countOrdered By: Tamika Brink on 13-64-2977Ujgfopsut (Bld) [#/Vol]0.1 10*3/uLNormal0.0-0.2FUC HealthComment on above:Result Comment: PERFORMED BY: [place] [address] PATHOLOGIST ARE[employer] CAPTAIN JOEY SANCHEZ M.D.Performed By: #### CBC, ESR, CMP #### [facility] [address] [place] [address] USAAutomated blood monocyte countOrdered By: Tamika Brink on 78-12-7366Qnuubnkvn (Bld) [#/Vol]0.5 10*3/uLNormal0.0-0.8[facility] HospitalComment on above:Performed By: #### CBC, ESR, CMP #### [facility] [address] [place] [address] USAAutomated eosinophil %Ordered By: Tamika Brink on 96-82-6746Gbluzjqjdem/100 WBC (Bld)11.6 %Normal.[facility] HospitalComment on above:Performed By: #### CBC, ESR, CMP #### [facility] [address] [place] [address] USAAutomated eosinophil countOrdered By: Tamika Brink on 42-21-5079Dwewalraltw (Bld) [#/Vol]0.4 10*3/uLNormal0.0-0.45[facility] HospitalComment on above:Performed By: #### CBC, ESR, CMP #### [facility] [address] [place] [address] USAAutomated monocyte %Ordered By: Tamika Ly on 11-03-2023 Monocytes/100 WBC (Bld)14.6 %Normal.[facility] HospitalComment on above:Performed By: #### CBC, ESR, CMP #### [facility] [address] [place] [address] USAAutomated neutrophil %Ordered By: Tamika Brink on 15-67-3604Sydsgbtjqjs/100 WBC (Bld)47.9 %Normal.[facility] HospitalComment on above:Performed By: #### CBC, ESR, CMP #### [place] [address] USABasophils Auto (Bld) [#/Vol]Ordered By: Tamika Brink on 91-49-7116Zkpupyoto (Bld) [#/Vol]Automated basophil count0.0-0.2FUC HealthBasophils/100 WBC Auto (Bld)Ordered By: Tamika Ly on 11-20-4038Xmckinexj/100 WBC (Bld)Automated basophil %.[facility] HospitalCapillary blood glucose measurement by glucometer (mass/volume)Ordered By: Tamika Brink on 92-97-9640Ozxemwx [Mass/Vol]103 mg/dLNormDoctors HospitalComment on above:Random Glucose Reference Range is dependent on time and content of last meal. Glucose of more than 200 mg/dL in a nonstressed, ambulatory subject supports the diagnosis of Diabetes Mellitus. Result Comment: Random Glucose Reference Range is dependent on time and content of last meal. Glucose of more than 200 mg/dL in a nonstressed, ambulatory subject supports the diagnosis of Diabetes Mellitus.Performed By: #### CBC, ESR, CMP #### [facility] [address] [place] [address] USAComplete Blood Count Auto Diffon 66-55-9900Vxqv Corpuscular HGB Conc34.7 g/aZNhjqqd52.5-35.6The [facility] Physician GroupComment on above:Performed By: #### CBC, ESR, CMP #### [facility] [address] [place] [address] USANRBC%0.2 /100{WBC}Normal0-0.5[facility] Comment on above:Performed By: #### CBC, ESR, CMP #### [place] [id number] USAEosinophils Auto (Bld) [#/Vol]Ordered By: Tamika Ly on 91-00-0734Fatbzsdqakc (Bld) [#/Vol]Automated eosinophil count0.0-0.45[facility] HospitalEosinophils/100 WBC Auto (Bld)Ordered By: Tamika Ly on 50-85-1795Jaxqnbagsta/100 WBC (Bld)Automated eosinophil %.[facility] HospitalErythrocyte distribution width Auto (RBC) [Ratio]Ordered By: Tamika Ly on 98-89-8113Yojzqbwstzr distribution width (RBC) [Ratio] Erythrocyte distribution width [Ratio] by Automated count12.0-14.8[facility] HospitalErythrocyte distribution width [Ratio] by Automated count Ordered By: Tamika Ly on 13-64-0175Wwzihwsishs distribution width (RBC) [Ratio]13.3 %Ggwhey74.0-14.8[facility] HospitalComment on above: Performed By: #### CBC, ESR, CMP #### [place] [id number] USAErythrocytes [#/volume] in Blood by Automated countOrdered By: Tamika Ly on 03-48-4229RHJ (Bld) [#/Vol]4.91 10*6/uLNormal3.90-5.60 [facility] HospitalComment on above:Performed By: #### CBC, ESR, CMP #### [facility] [address] [place] [address] USAGlucose Glucometer (BldC) [Mass/Vol]Ordered By: Tamika Brink on 57-39-3786Lsocnuy [Mass/Vol]Capillary blood glucose measurement by glucometer (mass/volume)[facility] HospitalComment on above:Random Glucose Reference Range is dependent on time and content of last meal. Glucose of more than 200 mg/dL in a nonstressed, ambulatory subject supports the diagnosis of Diabetes Mellitus.Glucose Poct Glucometerson 24-11-9784Orghsjr5 Glu2: Cleaned MeterNoSelect Specialty Hospital Physician GroupComment on above:Result Comment: PERFORMED BY: [place] [address] PATHOLOGIST ARE[employer] CAPTAIN JOEY SANCHEZ M.D.Performed By: #### CBC, ESR, CMP #### [place] [address] USAHematocrit Auto (Bld) [Volume fraction]Ordered By: Tamika Brink on 78-41-2671Ndkbdxfzht (Bld) [Volume fraction]Hematocrit [Volume Fraction] of Blood by Automated count38.8-50.0[facility] Hematocrit [Volume Fraction] of Blood by Automated countOrdered By: Tamika Brink on 26-41-8234Whdkuxjxrz (Bld) [Volume fraction]43.8 %Aqihbc98.8-50.0[facility] HospitalComment on above:Performed By: #### CBC, ESR, CMP #### [place] [address] USAHemoglobin [Mass/volume] in BloodOrdered By: Tamika Brink on 74-92-4120Kvtvdaoryc (Bld) [Mass/Vol]15.2 g/tUPbshun57.0-17.0[facility] HospitalComment on above:Performed By: #### CBC, ESR, CMP #### [facility] [address] [place] [address] USAHemoglobin (Bld) [Mass/Vol]Hemoglobin [Mass/volume] in Blood13.0-17.0Prem[facility] Miami Valley HospitalINR in Platelet poor plasma by Coagulation assayOrdered By: Tamika Brink on 10-61-0659NFR Coag (PPP) [Relative time]1.1 {INR}NormalPremier Health Miami Valley HospitalComment on above:INR Therapeutic Range A) Pre- and Peroperative OAT started two weeks before surgery. NOT HIP SURGERY: 1.5 - 2.5 HIP SURGERY: 2 - 3B) Primary and secondary prevention of venous THROMBOSIS: 2 - 3C) Active venous thrombosis, pulmonary embolismand prevention of recurrent venous thrombosis: 2 - 3D) Prevention of arterial thromboembolismincluding patients with mechanical heart valves: 3 - 4.5Result Comment: INR Therapeutic Range A) Pre- and Peroperative OAT started two weeks before surgery. NOT HIP SURGERY: 1.5 - 2.5 HIP SURGERY: 2 - 3 B) Primary and secondary prevention of venous THROMBOSIS: 2 - 3 C) Active venous thrombosis, pulmonary embolism and prevention of recurrent venous thrombosis: 2 - 3 D) Prevention of arterial thromboembolism including patients with mechanical heart valves: 3 - 4.5Performed By: #### PTT, PT #### [facility] [address] [place] [address] USAINR Coag (PPP) [Relative time]INR in Platelet poor plasma by Coagulation assayPremier Health Miami Valley HospitalComment on above:INR Therapeutic Range A) Pre- and Peroperative OAT started two weeks before surgery. NOT HIP SURGERY: 1.5 - 2.5 HIP SURGERY: 2 - 3B) Primary and secondary prevention of venous THROMBOSIS: 2 - 3C) Active venous thrombosis, pulmonary embolismand prevention of recurrent venous thrombosis: 2 - 3D) Prevention of arterial thromboembolismincluding patients with mechanical heart valves: 3 - 4.5 Leukocytes [#/volume] corrected for nucleated erythrocytes in Blood by Automated counOrdered By: Tamika Brink on 75-60-9606JXM corrected for nucl RBC Auto (Bld) [#/Vol]3.6 10*3/uLLow4.1-10.5FUC HealthWBC corrected for nucl RBC Auto (Bld) [#/Vol]Leukocytes [#/volume] corrected for nucleated erythrocytes in Blood by Automated counLow4.1-10.5FUC HealthLeukocytes [#/volume] in Blood by Automated countOrdered By: Tamika Ly on 31-68-4930CWJ (Bld) [#/Vol]3.6 10*3/uLLow4.1-10.5FUC HealthComment on above:Performed By: #### CBC, ESR, CMP #### [place] [address] USALymphocytes Auto (Bld) [#/Vol]Ordered By: Tamika Ly on 39-56-4757Zdsrneujxlt (Bld) [#/Vol]Lymphocytes [#/volume] in Blood by Automated countLow1.00-4.8Prem[facility] Miami Valley HospitalLymphocytes [#/volume] in Blood by Automated countOrdered By: Tamika Ly on 35-24-1449Eoajkpocafh (Bld) [#/Vol]0.8 10*3/uLLow1.00-4.8Prem[facility] Miami Valley HospitalComment on above: Performed By: #### CBC, ESR, CMP #### [facility] [address] [place] [id number] USALymphocytes/100 WBC Auto (Bld)Ordered By: Tamika Ly on 86-62-3215Zlhcupdfswg/100 WBC (Bld)Lymphocytes/100 leukocytes in Blood by Automated count.[facility] HospitalLymphocytes/100 leukocytes in Blood by Automated countOrdered By: Tamika Ly on 82-11-6600Fxlgexpdhlt/100 WBC (Bld)23.5 %Normal.[facility] Valley HospitalComment on above: Performed By: #### CBC, ESR, CMP #### [facility] [address] [place], [place] [id number] USAH Auto (RBC) [Entitic mass]Ordered By: Tamika Ly on 75-11-0865IQE (RBC) [Entitic mass]MCH [Entitic mass] by Automated count27.5-35.2 [facility] [Entitic mass] by Automated countOrdered By: Tamika Ly on 27-86-5864LQT (RBC) [Entitic mass]31.0 bhCdzrpl46.5-35.2 [facility] HospitalComment on above:Performed By: #### CBC, ESR, CMP #### [facility] [address] [place] [address] [facility]WTONHC Auto (RBC) [Mass/Vol]Ordered By: Tamika Ly on 72-39-8654GSXL (RBC) [Mass/Vol]34.7 g/dL32.5-35.6FTrinity Health System Twin City Medical CenterHC (RBC) [Mass/Vol]MCHC [Mass/volume] by Automated count32.5-35.6 [facility] HospitalV Auto (RBC) [Entitic vol]Ordered By: Tamika Ly on 79-57-1734WHJ (RBC) [Entitic vol]MCV [Entitic volume] by Automated count83.5-101WVUM[facility] Community HospitalV [Entitic volume] by Automated countOrdered By: Tamika Ly on 87-76-8760RYN (RBC) [Entitic vol]89.2 hWCwpcjt36.5-101Prem[facility] HospitalComment on above:Performed By: #### CBC, ESR, CMP #### [facility] [address] [place] [address] USAMonocytes Auto (Bld) [#/Vol]Ordered By: Tamika Ly on 44-18-7794Viaumkqmn (Bld) [#/Vol]Automated blood monocyte count0.0-0.8Prem[facility] HospitalMonocytes/100 WBC Auto (Bld)Ordered By: Tamika Ly on 78-33-1682Spfvoteyj/100 WBC (Bld)Automated monocyte %.[facility] HospitalNeutrophils Auto (Bld) [#/Vol]Ordered By: Tamika Ly on 11-03-2023 Neutrophils (Bld) [#/Vol]Neutrophils [#/volume] in Blood by Automated countLow 1.8-7.7FUC HealthNeutrophils [#/volume] in Blood by Automated countOrdered By: Tamika Brink on 18-51-6400Czsnafgwuiu (Bld) [#/Vol] 1.7 10*3/uLLow1.8-7.7FUC HealthComment on above:Performed By: #### CBC, ESR, CMP #### [facility] [address] [place] [address] USANeutrophils/100 WBC Auto (Bld)Ordered By: Tamika Brink on 31-54-8925Ltcpydqaisx/100 WBC (Bld)Automated neutrophil %.[facility] HospitalNo Panel InformationOrdered By: Tamika Brink on 11-03-2023 Miscellaneous Pathology TestSee [facility] Bryan HospitalComment on above:See report. Scanned copy available in EMR.Bedside Glucose CommentGlu2: cleaned [facility] Memorial HospitalNucleated erythrocytes [Presence] in Blood by Automated countOrdered By: Tamika Brink on 34-25-8179Zstkxqxcb RBC Auto Ql (Bld)0.2 /100{WBC}0-0.5FUC HealthNucleated RBC Auto Ql (Bld)Nucleated erythrocytes [Presence] in Blood by Automated count0-0.5 [facility] HospitalPartial Thromboplastin Timeon 81-52-3897kZPX Coag (Bld) [Time]34.1 hPrkyld96.1-36.5[facility] Physician GroupComment on above:Result Comment: A hematocrit value greater than 55% may lead to inaccurate results in coagulation testing. Patients having hematocrit values >55% require a special collection tube for coagulation studies. Please contact the laboratory at [phone] for redraw instructions. PERFORMED BY: [facility] [address] [facility] [place] [address] PATHOLOGIST AREA CAPTAIN JOEY SANCHEZ M.D.Performed By: #### PTT, PT #### [facility] [address] [place] [address] USAPathology Request for Lab Corpon [phone] Request for Lab CorpNormalThSt. Luke's El[facility] Medical Center Physician GroupComment on above:Order Comment: PATHOLOGY GI SPECIMENResult Comment: See report. Scanned copy available in EMR. PERFORMED BY: [place] [address] PATHOLOGIST AREA CAPTAIN JOEY SANCHEZ M.D.Performed By: #### CBC, ESR, CMP #### [place] [id number] USAPlatelet mean volume Auto (Bld) [Entitic vol]Ordered By: Tamika Brink on 24-03-4528Jdzedoxb mean volume (Bld) [Entitic vol]Platelet mean volume [Entitic volume] in Blood by Automated count6.6-10.1FUC HealthPlatelet mean volume [Entitic volume] in Blood by Automated count Ordered By: Tamika Brink on 20-49-0857Sjrzretp mean volume (Bld) [Entitic vol] 7.7 fLNormal6.6-10.1FUC HealthComment on above:Performed By: #### CBC, ESR, CMP #### [place] [address] USAPlatelets Auto (Bld) [#/Vol]Ordered By: Tamika Brink on 70-15-7182Hshokdvsa (Bld) [#/Vol]Platelets [#/volume] in Blood by Automated -263GabathbegPremier Health Miami Valley HospitalPlatelets [#/volume] in Blood by Automated countOrdered By: Tamika Brink on 30-60-3299Tegmheacc (Bld) [#/Vol]211 10*3/nEVqcefd805-328LkbfycpvsPremier Health Miami Valley HospitalComment on above:Performed By: #### CBC, ESR, CMP #### [place] [id number] USAProthrombin time (PT)Ordered By: Tamika Brink on 82-54-1850AW Coag (PPP) [Time]13.2 sHigh9.0-12.9Prem[facility] HospitalComment on above:A hematocrit value greater than 55% may lead to inaccurate results in coagulation testing. Patientshaving hematocrit values >55% require a special collection tube for coagulation studies. Please contact the laboratory at [phone] for redraw instructions.Result Comment: A hematocrit value greater than 55% may lead to inaccurate results in coagulation testing. Patients having hematocrit values >55% require a special collection tube for coagulation studies. Please contact the laboratory at [phone] for redraw instructions.Performed By: #### PTT, PT #### [facility] [address] [place] [address] USAPT Coag (PPP) [Time]Prothrombin time (PT)High9.0-12.9 [facility] HospitalComment on above:A hematocrit value greater than 55% may lead to inaccurate results in coagulation testing. Patientshaving hematocrit values >55% require a special collection tube for coagulation studies. Please contact the laboratory at [phone] for redraw instructions. RBC Auto (Bld) [#/Vol]Ordered By: Tamika Brink on 86-04-8858SEE (Bld) [#/Vol] Erythrocytes [#/volume] in Blood by Automated count3.90-5.60Prem[facility] HospitalWBC Auto (Bld) [#/Vol]Ordered By: Tamika Brink on 50-66-0993INJ (Bld) [#/Vol]Leukocytes [#/volume] in Blood by Automated countLow4.1-10.5 [facility] HospitalaPTT in Platelet poor plasma by Coagulation assayOrdered By: Tamika Brink on 83-57-6167iIBU Coag (PPP) [Time]Activated partial thromboplastin time (aPTT) in platelet poor plasma by coagulation a 25.1-36.5FUC HealthComment on above:A hematocrit value greater than 55% may lead to inaccurate results in coagulation testing. Patients having hematocrit values >55% require a special collection tube for coagulation studies. Please contact the laboratory at [phone] for redraw instructions. No Panel Informationon 18-47-6135Qartdhd INR (LAB)2.3FUC HealthAlanine aminotransferase [Enzymatic activity/volume] in Serum or Plasma Ordered By: Maximiliano Belle on 81-13-6062PBB [Catalytic activity/Vol]34 U/LNormal 7-52Prem[facility] HospitalComment on above:Performed By: #### ESR, CBC, CMP #### [facility] [address] [place] [id number] [place]ALT [Catalytic activity/Vol]Alanine aminotransferase [Enzymatic activity/volume] in Serum or PlasmaPremier Health Miami Valley HospitalAlbumin [Mass/volume] in Serum or Plasma by Bromocresol green (BCG) dye binding methoOrdered By: Maximiliano Belle on 53-81-7880Ewxpjrx BCG dye [Mass/Vol] 4.0 g/dL3.5-5.7FUC HealthAlbumin BCG dye [Mass/Vol] Albumin [Mass/volume] in Serum or Plasma by Bromocresol green (BCG) dye binding metho3.5-5.7FUC HealthAlkaline phosphatase [Enzymatic activity/volume] in Serum or PlasmaOrdered By: Maximiliano Belle on 43-69-4103AAH [Catalytic activity/Vol]57 U/JDlnvoh30-747Kkjhuatjx[address] Comment on above:Result Comment: PERFORMED BY: [place] [address] PATHOLOGIST ARE[employer] CAPTAIN JOEY SANCHEZ M.D.Performed By: #### ESR, CBC, CMP #### [place] [id number] USAALP [Catalytic activity/Vol]Alkaline phosphatase [Enzymatic activity/volume] in Serum or Vieeek21-936Yrjyuulup78 Conrad StreetAspartate aminotransferase [Enzymatic activity/volume] in Serum or Plasma Ordered By: Maximiliano Belle on 23-57-2593RVJ [Catalytic activity/Vol]28 U/LNormal [address]Comment on above:Performed By: #### ESR, CBC, CMP #### [facility] [address] [place] [address] USAAST [Catalytic activity/Vol]Aspartate aminotransferase [Enzymatic activity/volume] in Serum or Nxtvkw74-58DcetbgvbiPremier Health Miami Valley HospitalAutomated basophil %Ordered By: Maximiliano Belle on 11-91-4237Ssdeauugq/100 WBC (Bld)2.0 %Normal.[facility] HospitalComment on above:Performed By: #### ESR, CBC, CMP #### [facility] [address] [place], [place] [id number] USAAutomated basophil countOrdered By: Maximiliano Mccallrow on 94-84-3656Vmrqxdjqy (Bld) [#/Vol]0.1 10*3/uLNormal0.0-0.2FUC HealthComment on above:Performed By: #### ESR, CBC, CMP #### [facility] [address] [place] [address] USAAutomated blood monocyte countOrdered By: Maximiliano Mccallrow on 54-25-1448Wjifphtny (Bld) [#/Vol]0.5 10*3/uLNormal0.0-0.8[facility] HospitalComment on above:Performed By: #### ESR, CBC, CMP #### [place] [address] USAAutomated eosinophil %Ordered By: Maximiliano Mccallrow on 85-85-5352Priputomqto/100 WBC (Bld)13.3 %Normal.[facility] HospitalComment on above:Performed By: #### ESR, CBC, CMP #### [place] [address] USAAutomated eosinophil countOrdered By: Maximiliano Mccallrow on 25-27-3164Bgkwnatignq (Bld) [#/Vol]0.5 10*3/uLHigh0.0-0.45[facility] HospitalComment on above:Performed By: #### ESR, CBC, CMP #### [facility] [address] [place] [address] USAAutomated monocyte %Ordered By: Maximiliano Mccallrow on 66-63-1292Bzvyfyyri/100 WBC (Bld)11.8 %Normal.[facility] Comment on above:Performed By: #### ESR, CBC, CMP #### [facility] [address] [place] [address] USAAutomated neutrophil %Ordered By: Maximiliano Mccallrow on 26-82-2678Fkxgwlqvvrf/100 WBC (Bld)54.1 %Normal.[facility] HospitalComment on above:Performed By: #### ESR, CBC, CMP #### [facility] [address] [place] [address] USABasophils Auto (Bld) [#/Vol]Ordered By: Maximiliano Mccallrow on 47-99-9845Sisvcfdhn (Bld) [#/Vol]Automated basophil count0.0-0.2FUC HealthBasophils/100 WBC Auto (Bld)Ordered By: Maximiliano Mccallrow on 87-31-9709Nvwrwbyyf/100 WBC (Bld)Automated basophil %.[facility] HospitalBilirubin.total [Mass/volume] in Serum or PlasmaOrdered By: Maximilianomarlena Belle on 71-43-5673Isklfdcbi [Mass/Vol]0.5 mg/dLNormal0.3-1.0[facility] HospitalComment on above:Performed By: #### ESR, CBC, CMP #### [address] [address] USABilirubin [Mass/Vol]Bilirubin.total [Mass/volume] in Serum or Plasma0.3-1.0[facility] HospitalCalcium [Mass/volume] in Serum or PlasmaOrdered By: Maximilianomarlena Belle on 57-93-4838Bbnytfy [Mass/Vol]9.1 mg/dL Normal8.6-10.3FUC HealthComment on above:Performed By: #### ESR, CBC, CMP #### [facility] [address] [place] [address] USACalcium [Mass/Vol]Calcium [Mass/volume] in Serum or Plasma 8.6-10.3FUC HealthCarbon dioxide, total [Moles/volume] in Serum or PlasmaOrdered By: Maximilianomarlena Belle on 66-16-5224LX8 [Moles/Vol]26.9 mmol/YEefuiu05.0-31.0[facility] HospitalComment on above:Performed By: #### ESR, CBC, CMP #### [facility] [address] [place] [address] USACO2 [Moles/Vol]Carbon dioxide, total [Moles/volume] in Serum or Ovttuy07.0-31.0[facility] HospitalChloride [Moles/volume] in Serum or PlasmaOrdered By: Maximiliano Belle on 17-85-9415Hewpxlcf [Moles/Vol] 103 mmol/AIkuafc25-284Ikmtvx[address] [place], [place] [address]Comment on above: Performed By: #### ESR, CBC, CMP #### [place] [address] USAChloride [Moles/Vol]Chloride [Moles/volume] in Serum or Yytttl59-375UwbdyyebrPremier Health Miami Valley HospitalComplete Blood Count Auto Diffon 96-02-1343Days Corpuscular HGB Conc34.6 g/dSDhprip16.5-35.6[facility] Physician GroupComment on above:Performed By: #### ESR, CBC, CMP #### [place] [address] USANRBC%0.1 /100{WBC}Normal0-0.5[facility] Comment on above:Performed By: #### ESR, CBC, CMP #### [place] [address] USAComprehensive Metabolic Panelon 16-98-3507Ugcaafg [Mass/Vol]4.0 g/dLNormal3.5-5.7[facility] Physician GroupComment on above: Performed By: #### ESR, CBC, CMP #### [place] [address] USAGFR/1.73 sq M.predicted MDRD (S/P/Bld) [Vol rate/Area] mL/min/{1.73_m2}NormalThe Lifebr[facility] Hospital [facility] Stokes Physician GroupComment on above:Performed By: #### ESR, CBC, CMP #### [place] [address] USACreatinine [Mass/volume] in Serum or PlasmaOrdered By: Maximiliano Belle on 14-32-6903Wsmcggeqcp [Mass/Vol]0.71 mg/dLNormal0.70-1.30 [facility] HospitalComment on above:Performed By: #### ESR, CBC, CMP #### [place] [address] USACreatinine [Mass/Vol]Creatinine [Mass/volume] in Serum or Plasma0.70-1.30[facility] HospitalEosinophils Auto (Bld) [#/Vol] Ordered By: Maximiliano Belle on 98-34-5847Inwjtssqevz (Bld) [#/Vol]Automated eosinophil countHigh0.0-0.45[facility] HospitalEosinophils/100 WBC Auto (Bld)Ordered By: Maximiliano Belle on 73-51-8073Stjtleoambg/100 WBC (Bld) Automated eosinophil %.[facility] HospitalErythrocyte Sedimentation Rateon 25-17-7091KHR (Bld) [Velocity]10 mm/hNormal0-[facility] Physician GroupComment on above:Result Comment: PERFORMED BY: [place] [address] PATHOLOGIST ARE[employer] CAPTAIN JOEY SANCHEZ M.D.Performed By: #### ESR, CBC, CMP #### [facility] [address] [place] [address] USAErythrocyte distribution width Auto (RBC) [Ratio]Ordered By: Maximiliano Belle on 08-38-8991Prqxdncispz distribution width (RBC) [Ratio] Erythrocyte distribution width [Ratio] by Automated count12.0-14.8[facility] HospitalErythrocyte distribution width [Ratio] by Automated count Ordered By: Maximiliano Belle on 54-97-4063Qdwzlgseack distribution width (RBC) [Ratio]13.6 %Vmemjn80.0-14.8[facility] HospitalComment on above: Performed By: #### ESR, CBC, CMP #### [facility] [address] [place] [address] USAErythrocyte sedimentation rate by Photometric method Ordered By: Maximiliano Belle on 40-91-4906GAS Photometric method (Bld) [Velocity] 10 mm/hr0[facility] HospitalESR Photometric method (Bld) [Velocity]Erythrocyte sedimentation rate by Photometric method0[facility] HospitalErythrocytes [#/volume] in Blood by Automated count Ordered By: Maximiliano Belle on 16-02-6755UFV (Bld) [#/Vol]4.48 10*6/uLNormal 3.90-5.60[facility] HospitalComment on above:Performed By: #### ESR, CBC, CMP #### [facility] [address] [place] [address] USAGlobulin Calc (S) [Mass/Vol]Ordered By: Maximiliano Belle on 31-34-0051Ybwgadsm (S) [Mass/Vol]Serum globulin measurement by calculation (mass/volume)[facility] HospitalGlucose [Mass/volume] in Serum or PlasmaOrdered By: Maximiliano Belle on 46-12-7101Ulnalqq [Mass/Vol]148 mg/dLSt. Mary'S Medical Center 70-100Prem[facility] HospitalComment on above:ADA recommended reference rangeRandom Glucose Reference Range is dependent on time and content of last meal. Glucose of more than 200 mg/dL in a nonstressed, ambulatory subject supports the diagnosisof Diabetes Mellitus.Result Comment: Random Glucose Reference Range is dependent on time and content of last meal. Glucose of more than 200 mg/dL in a nonstressed, ambulatory subject supports the diagnosis of Diabetes Mellitus. ADA recommended reference rangePerformed By: #### ESR, CBC, CMP #### [facility] [address] [place] [id number] USAGlucose [Mass/Vol]Glucose [Mass/volume] in Serum or Plasma Tljo89-200Ylabiygmd80 Dalton StreetComment on above:ADA recommended reference rangeRandom Glucose Reference Range is dependent on time and content of last meal. Glucose of more than 200 mg/dL in a nonstressed, ambulatory subject supports the diagnosisof Diabetes Mellitus.Hematocrit Auto (Bld) [Volume fraction]Ordered By: Maximiliano Belle on 92-33-9091Oahllwjvru (Bld) [Volume fraction]Hematocrit [Volume Fraction] of Blood by Automated count38.8-50.0 [facility] HospitalHematocrit [Volume Fraction] of Blood by Automated countOrdered By: Maximiliano Belle on 89-95-9178Ijrzavvssv (Bld) [Volume fraction]39.9 %Fiqyim80.8-50.0[facility] HospitalComment on above: Performed By: #### ESR, CBC, CMP #### [facility] [address] [place] [address] USAHemoglobin [Mass/volume] in BloodOrdered By: Maximiliano Belle on 23-59-0481Wyxhtisjhs (Bld) [Mass/Vol]13.8 g/qWCcvjrw29.0-17.0[facility] HospitalComment on above:Performed By: #### ESR, CBC, CMP #### [facility] [address] [place] [address] USAHemoglobin (Bld) [Mass/Vol]Hemoglobin [Mass/volume] in Blood13.0-17.0[facility] HospitalLeukocytes [#/volume] corrected for nucleated erythrocytes in Blood by Automated counOrdered By: Maximiliano Belle on 20-52-6583TTJ corrected for nucl RBC Auto (Bld) [#/Vol]3.9 10*3/uLLow4.1-10.5 [facility] HospitalWBC corrected for nucl RBC Auto (Bld) [#/Vol] Leukocytes [#/volume] corrected for nucleated erythrocytes in Blood by Automated counLow4.1-10.5FUC HealthLeukocytes [#/volume] in Blood by Automated countOrdered By: Maximiliano Belle on 95-39-7148OZK (Bld) [#/Vol]3.9 10*3/uLLow4.1-10.5FUC HealthComment on above:Performed By: #### ESR, CBC, CMP #### [facility] [address] [place] [address] USALymphocytes Auto (Bld) [#/Vol]Ordered By: Maximiliano Belle on 43-21-6099Qfxnzzdyeqi (Bld) [#/Vol]Lymphocytes [#/volume] in Blood by Automated countLow1.00-4.8[facility] HospitalLymphocytes [#/volume] in Blood by Automated countOrdered By: Maximiliano Belle on 10-25-2023 Lymphocytes (Bld) [#/Vol]0.7 10*3/uLLow1.00-4.8[facility] Comment on above:Performed By: #### ESR, CBC, CMP #### [facility] [address] [place] [address] USALymphocytes/100 WBC Auto (Bld)Ordered By: Maximiliano Belle on 07-49-1074Bumseqycetu/100 WBC (Bld)Lymphocytes/100 leukocytes in Blood by Automated count.[facility] HospitalLymphocytes/100 leukocytes in Blood by Automated countOrdered By: Maximiliano Belle on 09-93-0262Ftrumoybzuw/100 WBC (Bld)18.8 %Normal.[facility] HospitalComment on above: Performed By: #### ESR, CBC, CMP #### [facility] [address] [place] [address] [facility] Auto (RBC) [Entitic mass]Ordered By: Maximiliano Belle on 29-81-6081GGV (RBC) [Entitic mass]MCH [Entitic mass] by Automated count27.5-35.2 [facility] [Entitic mass] by Automated countOrdered By: Maximiliano Belle on 24-03-1158KHL (RBC) [Entitic mass]30.8 bxWnxisi30.5-35.2 [facility] HospitalComment on above:Performed By: #### ESR, CBC, CMP #### [facility] [address] [place] [address] [facility] Auto (RBC) [Mass/Vol]Ordered By: Maximiliano Belle on 04-46-6503JVEP (RBC) [Mass/Vol]34.6 g/dL32.5-35.6FTrinity Health System Twin City Medical CenterHC (RBC) [Mass/Vol]MCHC [Mass/volume] by Automated count32.5-35.6 [facility] Auto (RBC) [Entitic vol]Ordered By: Maximiliano Belle on 10-99-7735DCO (RBC) [Entitic vol]MCV [Entitic volume] by Automated count83.5-101[facility] [Entitic volume] by Automated countOrdered By: Maximiliano Belle on 39-18-3254CEH (RBC) [Entitic vol]89.2 fL Ibkfsc30.5-101Prem[facility] HospitalComment on above:Performed By: #### ESR, CBC, CMP #### [facility] [address] [place] [address] USAMonocytes Auto (Bld) [#/Vol]Ordered By: Maximiliano Belle on 37-71-9937Qcsqsbiat (Bld) [#/Vol]Automated blood monocyte count0.0-0.8[facility] HospitalMonocytes/100 WBC Auto (Bld)Ordered By: Maximiliano Belle on 85-50-7906Vdhhbsiie/100 WBC (Bld)Automated monocyte %.[facility] HospitalNeutrophils Auto (Bld) [#/Vol]Ordered By: Maximiliano Belle on 94-33-1139Qdfynlellrq (Bld) [#/Vol]Neutrophils [#/volume] in Blood by Automated count1.8-7.7FUC HealthNeutrophils [#/volume] in Blood by Automated countOrdered By: Maximiliano Belle on 33-86-0933Bwlisutwgwv (Bld) [#/Vol] 2.1 10*3/uLNormal1.8-7.7FUC HealthComment on above: Performed By: #### ESR, CBC, CMP #### [facility] [address] [id number] USANeutrophils/100 WBC Auto (Bld)Ordered By: Maximiliano Belle on 52-73-7522Eduelvpvlqq/100 WBC (Bld)Automated neutrophil %.[facility] HospitalNo Panel InformationOrdered By: Maximiliano Belle on 10-25-2023 Estimated GFR (CKD-EPI)> 60.0 mL/MinPremier Health Miami Valley HospitalPharmacy Creatinine Clearance (ChemN/AFUC HealthNucleated erythrocytes [Presence] in Blood by Automated countOrdered By: Maximiliano Belle on 23-55-0144Frxnjylkt RBC Auto Ql (Bld)0.1 /100{WBC}0-0.5FUC HealthNucleated RBC Auto Ql (Bld)Nucleated erythrocytes [Presence] in Blood by Automated count0-0.5FUC HealthPlatelet mean volume Auto (Bld) [Entitic vol]Ordered By: Maximiliano Belle on 18-13-6400Bxnuadrj mean volume (Bld) [Entitic vol]Platelet mean volume [Entitic volume] in Blood by Automated count6.6-10.1FUC HealthPlatelet mean volume [Entitic volume] in Blood by Automated countOrdered By: Maximiliano Belle on 09-01-4756Cofgnxtw mean volume (Bld) [Entitic vol]8.7 fLNormal6.6-10.1FUC HealthComment on above:Performed By: #### ESR, CBC, CMP #### [facility] [address] [place] [address] USAPlatelets Auto (Bld) [#/Vol]Ordered By: Maximiliano Belle on 35-22-5292Ylgsejuin (Bld) [#/Vol]Platelets [#/volume] in Blood by Automated xtriq556-681TmyfjgnkdPremier Health Miami Valley HospitalPlatelets [#/volume] in Blood by Automated countOrdered By: Maximiliano Belle on 69-50-2719Npgmmsnrc (Bld) [#/Vol] 192 10*3/mKOaqkxz301-707YzszqharyPremier Health Miami Valley HospitalComment on above: Performed By: #### ESR, CBC, CMP #### [facility] [address] [place] [address] USAPotassium [Moles/volume] in Serum or PlasmaOrdered By: Maximiliano Belle on 06-91-9116Rmeztqhyz [Moles/Vol]4.1 mmol/LNormal3.5-5.1 [facility] HospitalComment on above:Performed By: #### ESR, CBC, CMP #### [facility] [address] [place] [address] USAPotassium [Moles/Vol]Potassium [Moles/volume] in Serum or Plasma3.5-5.1FUC HealthProtein [Mass/volume] in Serum or PlasmaOrdered By: Maximiliano Belle on 50-67-9051Jswonbk [Mass/Vol]6.5 g/dLNormal 6.4-8.9[facility] HospitalComment on above:Performed By: #### ESR, CBC, CMP #### [facility] [address] [place] [address] USAProtein [Mass/Vol]Protein [Mass/volume] in Serum or Plasma 6.4-8.9[facility] HospitalRBC Auto (Bld) [#/Vol]Ordered By: Maximiliano Belle on 59-64-9285BEE (Bld) [#/Vol]Erythrocytes [#/volume] in Blood by Automated count3.90-5.60[facility] Medical Centererum globulin measurement by calculation (mass/volume)Ordered By: Maximiliano Belle on 10-25-2023 Globulin (S) [Mass/Vol]2.5 g/dLNormalPremier Health Miami Valley HospitalComment on above:Performed By: #### ESR, CBC, CMP #### [place] [address] USASerum or plasma albumin/globulin mass ratioOrdered By: Maximiliano Belle on 32-08-3415Kehhton/Globulin [Mass ratio]1.6 {ratio}Normal [facility] HospitalComment on above:Performed By: #### ESR, CBC, CMP #### [place] [address] USAAlbumin/Globulin [Mass ratio]Serum or plasma albumin/globulin mass ratioCincinnati Children's Hospital Medical Centererum or plasma anion gap determinationOrdered By: Maximiliano Belle on 51-42-0090Nbwgr gap [Moles/Vol]10.2 mmol/LNormal6.0-15.0[facility] HospitalComment on above:Performed By: #### ESR, CBC, CMP #### [facility] [address] [id number] USAAnion gap [Moles/Vol]Serum or plasma anion gap determination6.0-15.0[facility] Medical Centerodium [Moles/volume] in Serum or PlasmaOrdered By: Maximiliano Belle on 72-83-4178Bkcxqk [Moles/Vol]136 mmol/VGfgiau643-594UeqmblkwaPremier Health Miami Valley HospitalComment on above:Performed By: #### ESR, CBC, CMP #### [facility] [address] [place] [address] USASodium [Moles/Vol]Sodium [Moles/volume] in Serum or Plasma 136-145[facility] HospitalUrea nitrogen [Mass/volume] in Serum or PlasmaOrdered By: Maximiliano Belle on 10-88-8034Ixsz nitrogen [Mass/Vol]10 mg/dL Normal09-14[facility] HospitalComment on above:Performed By: #### ESR, CBC, CMP #### [facility] [address] [place] [address] USAUrea nitrogen [Mass/Vol]Urea nitrogen [Mass/volume] in Serum or Plasma09-14Prem[facility] HospitalWBC Auto (Bld) [#/Vol] Ordered By: Maximiliano Belle on 74-88-3614DUV (Bld) [#/Vol]Leukocytes [#/volume] in Blood by Automated countLow4.1-10.5FUC HealthNo Panel Informationon 23-31-0352Tubxllw INR (LAB)2.7FUC HealthNo Panel Informationon 43-52-7091Fdzilgb INR (LAB)2.4FUC HealthAlanine aminotransferase [Enzymatic activity/volume] in Serum or Plasma Ordered By: Maximiliano Belle on 62-30-9606ANB [Catalytic activity/Vol]23 U/L7-52 [facility] HospitalAlbumin [Mass/volume] in Serum or Plasma by Bromocresol green (BCG) dye binding methoOrdered By: Maximiliano Belle on 24-40-6407Rfplggn BCG dye [Mass/Vol]4.0 g/dL3.5-5.7FUC HealthAlkaline phosphatase [Enzymatic activity/volume] in Serum or PlasmaOrdered By: Maximiliano Belle on 38-10-6900NKQ [Catalytic activity/Vol]52 U/L34-104 [facility] HospitalAspartate aminotransferase [Enzymatic activity/volume] in Serum or PlasmaOrdered By: Maximiliano Belle on 71-45-6365VKH [Catalytic activity/Vol]20 U/E39-32CtkhuiehtPremier Health Miami Valley HospitalBasophils Auto (Bld) [#/Vol]Ordered By: Maximiliano Belle on 86-00-7878Ihwnpqdzo (Bld) [#/Vol]0.1 10*3/uL0.0-0.2FUC HealthBasophils/100 WBC Auto (Bld)Ordered By: Maximiliano Belle on 52-76-1259Lvlzvvokj/100 WBC (Bld)1.7 %. [facility] HospitalBilirubin.total [Mass/volume] in Serum or PlasmaOrdered By: Maximiliano Belle on 56-57-2827Yekbolakr [Mass/Vol]0.5 mg/dL 0.3-1.0[facility] HospitalCalcium [Mass/volume] in Serum or Plasma Ordered By: Maximiliano Belle on 40-44-9738Vsneytk [Mass/Vol]8.9 mg/dL8.6-10.3 [facility] HospitalCarbon dioxide, total [Moles/volume] in Serum or PlasmaOrdered By: Maximiliano Belle on 32-21-6350HX2 [Moles/Vol]26.9 mmol/L 21.0-31.0[facility] HospitalChloride [Moles/volume] in Serum or PlasmaOrdered By: Maximiliano Belle on 16-10-9101Ayolnilf [Moles/Vol]99 mmol/L 98-107[facility] HospitalCreatinine [Mass/volume] in Serum or PlasmaOrdered By: Maximiliano Belle on 69-87-1197Cwazkjmisl [Mass/Vol]0.72 mg/dL 0.70-1.30[facility] HospitalEosinophils Auto (Bld) [#/Vol]Ordered By: Maximiliano Belle on 78-19-2023Zuijtosbwmr (Bld) [#/Vol]0.4 10*3/uL0.0-0.45 [facility] HospitalEosinophils/100 WBC Auto (Bld)Ordered By: Maximiliano Belle on 17-75-0208Xogourfvfer/100 WBC (Bld)10.8 %.[facility] HospitalErythrocyte distribution width Auto (RBC) [Ratio]Ordered By: Maximiliano Belle on 69-43-2252Ijsbgjgvgcl distribution width (RBC) [Ratio]13.6 % 12.0-14.8[facility] HospitalErythrocyte sedimentation rate by Photometric methodOrdered By: Maximiliano Belle on 40-04-1081ULG Photometric method (Bld) [Velocity]13 mm/hr0-19Prem[facility] HospitalGlobulin Calc (S) [Mass/Vol]Ordered By: Maximiliano Belle on 04-03-0068Fjpmsvgv (S) [Mass/Vol]2.7 g/dLPremier Health Miami Valley HospitalGlucose [Mass/volume] in Serum or Plasma Ordered By: Maximiliano Belle on 18-89-4742Dbehjkh [Mass/Vol]156 mg/aDCtkk31-839 [facility] HospitalComment on above:ADA recommended reference rangeRandom Glucose Reference Range is dependent on time and content of last meal. Glucose of more than 200 mg/dL in a nonstressed, ambulatory subject supports the diagnosisof Diabetes Mellitus.Hematocrit Auto (Bld) [Volume fraction]Ordered By: Maximiliano Belle on 64-69-6333Vhdhlvgrhc (Bld) [Volume fraction]38.5 %Low38.8-50.0[facility] HospitalHemoglobin [Mass/volume] in BloodOrdered By: Maximiliano Belle on 32-33-7165Hxkgrwgpzp (Bld) [Mass/Vol]13.2 g/dL13.0-17.0[facility] HospitalLeukocytes [#/volume] corrected for nucleated erythrocytes in Blood by Automated coun Ordered By: Maximiliano Belle on 45-98-3542FRM corrected for nucl RBC Auto (Bld) [#/Vol]3.6 10*3/uLLow4.1-10.5FUC HealthLymphocytes Auto (Bld) [#/Vol]Ordered By: Maximiliano Belle on 38-78-9384Wpzplgpriie (Bld) [#/Vol] 0.7 10*3/uLLow1.00-4.8[facility] HospitalLymphocytes/100 WBC Auto (Bld)Ordered By: Maximiliano Belle on 71-15-6667Habokorbape/100 WBC (Bld)18.3 %. [facility] HospitalMCH Auto (RBC) [Entitic mass]Ordered By: Maximiliano Belle on 86-80-5712BWI (RBC) [Entitic mass]30.7 pg27.5-35.2FUC HealthMCHC Auto (RBC) [Mass/Vol]Ordered By: Maximiliano Belle on 74-79-3596ZLMX (RBC) [Mass/Vol]34.4 g/dL32.5-35.6FUC HealthMCV Auto (RBC) [Entitic vol]Ordered By: Maximiliano Belle on 36-04-4260FEW (RBC) [Entitic vol]89.1 fL83.5-101Prem[facility] HospitalMonocytes Auto (Bld) [#/Vol]Ordered By: Maximiliano Belle on 93-88-4136Xgtscnajw (Bld) [#/Vol]0.5 10*3/uL0.0-0.8[facility] HospitalMonocytes/100 WBC Auto (Bld)Ordered By: Maximiliano Belle on 70-79-6848Tzwkbhcde/100 WBC (Bld)12.6 %. [facility] HospitalNeutrophils Auto (Bld) [#/Vol]Ordered By: Maximiliano Belle on 73-78-9414Pjfwydmdnlp (Bld) [#/Vol]2.0 10*3/uL1.8-7.7FUC HealthNeutrophils/100 WBC Auto (Bld)Ordered By: Maximiliano Belle on 78-81-6920Cippyoxsucw/100 WBC (Bld)56.6 %.[facility] No Panel InformationOrdered By: Maximiliano Belle on 86-29-8953Naymvaxzn GFR (CKD-EPI)> 60.0 mL/MinPremier Health Miami Valley HospitalPharmacy Creatinine Clearance (ChemN/AFUC HealthNucleated erythrocytes [Presence] in Blood by Automated countOrdered By: Maximiliano Belle on 08-30-2023 Nucleated RBC Auto Ql (Bld)0.1 /100{WBC}0-0.5F[facility] Health Platelet mean volume Auto (Bld) [Entitic vol]Ordered By: Maximiliano Belle on 09-97-2476Zbqdlbxo mean volume (Bld) [Entitic vol]8.1 fL6.6-10.1FUC HealthPlatelets Auto (Bld) [#/Vol]Ordered By: Maximiliano Belle on 47-87-8971Qkwsaarvl (Bld) [#/Vol]185 10*3/sH079-245AcopzbkmsPremier Health Miami Valley HospitalPotassium [Moles/volume] in Serum or PlasmaOrdered By: Maximiliano Belle on 07-61-3461Lacheomaf [Moles/Vol]3.9 mmol/L3.5-5.1FUC HealthProtein [Mass/volume] in Serum or PlasmaOrdered By: Maximiliano Belle on 43-82-2501Zkrdxmm [Mass/Vol]6.7 g/dL6.4-8.9[facility] HospitalRBC Auto (Bld) [#/Vol]Ordered By: Maximiliano Belle on 24-18-5666NUV (Bld) [#/Vol]4.32 10*6/uL3.90-5.60[facility] Centererum or plasma albumin/globulin mass ratioOrdered By: Maximiliano Belle on 08-30-2023 Albumin/Globulin [Mass ratio]1.5 {ratio}[facility] Centererum or plasma anion gap determinationOrdered By: Maximiliano Belle on 83-47-2737Nbngl gap [Moles/Vol]11.0 mmol/L6.0-15.0[facility] Medical Centerodium [Moles/volume] in Serum or PlasmaOrdered By: Maximiliano Belle on 32-64-0259Beqczl [Moles/Vol]133 mmol/WRng543-351UnuqwfxhhPremier Health Miami Valley HospitalUrea nitrogen [Mass/volume] in Serum or PlasmaOrdered By: Maximiliano Belle on 34-09-8979Xrjv nitrogen [Mass/Vol]12 mg/dL7-25Prem[facility] HospitalWBC Auto (Bld) [#/Vol]Ordered By: Maximiliano Belle on 71-42-8398BGD (Bld) [#/Vol]3.6 10*3/uLLow 4.1-10.5FUC HealthECG [address] 57-97-3730Ttsja rhythm with premature atrial complexes, heart rate 72 bpmCPLake County Memorial Hospital [facility] Work Phone: No Panel Informationon 61-00-2980Qywwfpi INR (LAB)2.8 [facility] HospitalNo Panel Informationon 01-90-8079Embqotf INR (LAB)2.7FUC HealthNo Panel Informationon 07-21-2023 Bedside INR (LAB)2.4FUC HealthACT Coag (Bld)on 07-13-2023 Interpretation and review of laboratory resultsAbMercy HospitalInterpretation and review of laboratory resultsAbMercy HospitalInterpretation and review of laboratory resultsAbMercy HospitalACTIVATED CLOTTING TIME HIGHon 00-57-9493EKB Coag (Bld)346 [facility] on above:Target ACT range will vary based on the patient population, clinical status, and surgical intervention occurring. ACT Coag (Bld)372 [facility] on above:Target ACT range will vary based on the patient population, clinical status, and surgical intervention occurring. ACT Coag (Bld)398 [facility] on above:Target ACT range will vary based on the patient population, clinical status, and surgical intervention occurring. Activated clotting timeon 31-06-9066YHO Coag (Bld)346 [address]Comschoolcraft memorial hospital on above:Result Comment: Target ACT range will vary based on the patient population, clinical status, and surgical intervention occurring.Performed By: #### 3184-9 #### SHERRY Greenberg ([id number]) [facility] ([facility]) [id number] [place] [address]SNQ Coag (Bld)372 [address]Comschoolcraft memorial hospital on above:Result Comment: Target ACT range will vary based on the patient population, clinical status, and surgical intervention occurring.Performed By: #### 3184-9 #### SHERRY Greenberg ([id number]) [facility] ([facility]) [id number] [place] [address] 45171IVQ Coag (Bld)398 [address]Comment on above:Result Comment: Target ACT range will vary based on the patient population, clinical status, and surgical intervention occurring.Performed By: #### 3184-9 #### SHERRY Greenberg ([id number]) [facility] ([facility]) [address] [place], [place] [address]Xsefoax Test strip manual (Bld) [Mass/Vol]on 07-13-2023 Glucose [Mass/Vol]115 mg/hRUgld87-60BgfpkkrbnuGrant HospitalComment on above:Performed By: #### 2341-6 #### SHERRY Greenberg ([id number]) [facility] ([facility]) [address] [place], [place] [address]Xbzhktz [Mass/Vol]115 mg/wPBaus94 - 99 mg/dLNorwalk Memorial HospitalInterpretation and review of laboratory resultsAbnoMemorial Health SystemNo Panel Informationon 44-03-0726Frdnnrm INR (LAB)3.0[facility] HospitalNo Panel Informationon 56-03-3411Lxbzhkm INR (LAB)3.3HighPremier Health Miami Valley HospitalECG [address] 61-90-1196Djoeqw fibrillation with controlled ventricular response, frequent monomorphic PVCs, HR 89bpmCUC [facility] Work Phone: ECG [address] 07-87-6842Kqthse fibrillation with controlled rate and nonspecific ST-T changesCPLake County Memorial Hospital [facility] Work Phone: No Panel Informationon 54-82-7966Mdbrobx INR (LAB)2.5 [facility] HospitalCarbon dioxide, total [Moles/volume] in Serum or PlasmaOrdered By: Jose Angel Palmer on 42-87-0748YB9 [Moles/Vol]24.7 mmol/L 21.0-31.0[facility] HospitalChloride [Moles/volume] in Serum or PlasmaOrdered By: Jose Angel Palmer on 03-28-6287Jpohnkhk [Moles/Vol]107 mmol/L 98-107Prem[facility] HospitalGlucose Glucometer (BldC) [Mass/Vol] Ordered By: Jose Angel Palmer on 67-58-1351Zsujwgk [Mass/Vol]90 mg/dLPremier Health Miami Valley HospitalComment on above:Random Glucose Reference Range is dependent on time and content of last meal. Glucose of more than 200 mg/dL in a nonstressed, ambulatory subject supports the diagnosis of Diabetes Mellitus.INR in Platelet poor plasma by Coagulation assayOrdered By: Jose Angel Palmer on 87-54-1777UBD Coag (PPP) [Relative time]2.6 {INR}[facility] HospitalComment on above:INR Therapeutic Range A) Pre- and Peroperative OAT started two weeks before surgery. NOT HIP SURGERY: 1.5 - 2.5 HIP SURGERY: 2 - 3B) Primary and secondary prevention of venous THROMBOSIS: 2 - 3C) Active venous thrombosis, pulmonary embolismand prevention of recurrent venous thrombosis: 2 - 3D) Prevention of arterial thromboembolismincluding patients with mechanical heart valves: 3 - 4.5No Panel InformationOrdered By: Jose Angel Palmer on 81-93-3894Jllahrh Glucose CommentGlu2: cleaned meterPremier Health Miami Valley HospitalPotassium [Moles/volume] in Serum or PlasmaOrdered By: Jose Angel Palmer on 99-25-9623Uazmezkyk [Moles/Vol]3.9 mmol/L3.5-5.1FUC HealthProthrombin time (PT)Ordered By: Jose Angel Palmer on 33-70-4724WT Coag (PPP) [Time]29.1 sHigh9.0-12.9[facility] HospitalComment on above: A hematocrit value greater than 55% may lead to inaccurate results in coagulation testing. Patientshaving hematocrit values >55% require a special collection tube for coagulation studies. Please contact the laboratory at [phone] for redraw instructions.Serum or plasma anion gap determination Ordered By: Jose Angel Palmer on 23-81-6929Uncuy gap [Moles/Vol]12.2 mmol/L 6.0-15.0[facility] Medical Centerodium [Moles/volume] in Serum or PlasmaOrdered By: Jose Angel Palmer on 96-56-3756Zeoppi [Moles/Vol]140 mmol/L 136-145[facility] HospitalCalcium [Mass/volume] in Serum or Plasma Ordered By: Jose Angel Palmer on 03-57-8058Dwhkhjp [Mass/Vol]9.2 mg/dL8.6-10.3 [facility] HospitalCreatinine [Mass/volume] in Serum or Plasma Ordered By: Jose Angel Palmer on 34-29-5844Wtqywkjrqk [Mass/Vol]0.79 mg/dL 0.70-1.30[facility] HospitalGlucose [Mass/volume] in Serum or PlasmaOrdered By: Jose Angel Palmer on 43-93-5940Jogfgyw [Mass/Vol]98 mg/dL 70-100Prem[facility] HospitalComment on above:ADA recommended reference rangeRandom Glucose Reference Range is dependent on time and content of last meal. Glucose of more than 200 mg/dL in a nonstressed, ambulatory subject supports the diagnosisof Diabetes Mellitus.No Panel InformationOrdered By: Jose Angel Palmer on 28-93-4870Mqxousgyj GFR (CKD-EPI)> 60.0 mL/Min [facility] HospitalPharmacy Creatinine Clearance (Chem93.64 [facility] HospitalUrea nitrogen [Mass/volume] in Serum or Plasma Ordered By: Jose Angel Palmer on 93-68-5354Vxwh nitrogen [Mass/Vol]19 mg/dL7-25 [facility] HospitalAlanine aminotransferase [Enzymatic activity/volume] in Serum or PlasmaOrdered By: Maximiliano Belle on 76-05-7062FZF [Catalytic activity/Vol]32 U/L7-52[facility] HospitalAlbumin [Mass/volume] in Serum or Plasma by Bromocresol green (BCG) dye binding metho Ordered By: Maximiliano Belle on 46-74-0293Vlumsgf BCG dye [Mass/Vol]4.1 g/dL 3.5-5.7FUC HealthAlkaline phosphatase [Enzymatic activity/volume] in Serum or PlasmaOrdered By: Maximiliano Belle on 24-58-9396UTJ [Catalytic activity/Vol]43 U/L89-994ManfrtmnkPremier Health Miami Valley HospitalAspartate aminotransferase [Enzymatic activity/volume] in Serum or PlasmaOrdered By: Maximiliano Belle on 34-38-2301HIG [Catalytic activity/Vol]24 U/I51-74KhfggyixwPremier Health Miami Valley HospitalBasophils Auto (Bld) [#/Vol]Ordered By: Maximiliano Belle on 42-82-1673Idakuhhjz (Bld) [#/Vol]0.1 10*3/uL0.0-0.2FUC HealthBasophils/100 WBC Auto (Bld)Ordered By: Maximiliano Belle on 05-31-2023 Basophils/100 WBC (Bld)1.1 %.[facility] HospitalBilirubin.total [Mass/volume] in Serum or PlasmaOrdered By: Maximiliano Belle on 05-31-2023 Bilirubin [Mass/Vol]0.5 mg/dL0.3-1.0[facility] HospitalCalcium [Mass/volume] in Serum or PlasmaOrdered By: Maximiliano Belle on 97-24-3804Glmhtqc [Mass/Vol]9.2 mg/dL8.6-10.3FUC HealthCarbon dioxide, total [Moles/volume] in Serum or PlasmaOrdered By: Maximiliano Belle on 05-31-2023 CO2 [Moles/Vol]26.7 mmol/L21.0-31.0[facility] HospitalChloride [Moles/volume] in Serum or PlasmaOrdered By: Maximiliano Belle on 05-31-2023 Chloride [Moles/Vol]106 mmol/B34-469ZpjgztjrgPremier Health Miami Valley HospitalCreatinine [Mass/volume] in Serum or PlasmaOrdered By: Maximiliano Belle on 05-31-2023 Creatinine [Mass/Vol]0.82 mg/dL0.70-1.30[facility] Eosinophils Auto (Bld) [#/Vol]Ordered By: Maximiliano Belle on 05-31-2023 Eosinophils (Bld) [#/Vol]0.4 10*3/uL0.0-0.45[facility] Eosinophils/100 WBC Auto (Bld)Ordered By: Maximiliano Belle on 05-31-2023 Eosinophils/100 WBC (Bld)8.4 %.[facility] HospitalErythrocyte distribution width Auto (RBC) [Ratio]Ordered By: Maximiliano Belle on 05-31-2023 Erythrocyte distribution width (RBC) [Ratio]13.4 %12.0-14.8[facility] HospitalErythrocyte sedimentation rate by Photometric methodOrdered By: Maximiliano Belle on 44-87-2734UAI Photometric method (Bld) [Velocity]8 mm/hr0-19 [facility] HospitalGlobulin Calc (S) [Mass/Vol]Ordered By: Maximiliano Belle on 70-04-0160Cqhktqdi (S) [Mass/Vol]2.4 g/dLPremier Health Miami Valley HospitalGlucose [Mass/volume] in Serum or PlasmaOrdered By: Maximiliano Belle on 43-89-9710Byceluo [Mass/Vol]110 mg/zN02-172IjfoebwoiPremier Health [facility] Hospital Comment on above:ADA recommended reference rangeRandom Glucose Reference Range is dependent on time and content of last meal. Glucose of more than 200 mg/dL in a nonstressed, ambulatory subject supports the diagnosisof Diabetes Mellitus. Hematocrit Auto (Bld) [Volume fraction]Ordered By: Maximiliano Belle on 05-31-2023 Hematocrit (Bld) [Volume fraction]41.7 %38.8-50.0[facility] HospitalHemoglobin [Mass/volume] in BloodOrdered By: Maximiliano Belle on 05-31-2023 Hemoglobin (Bld) [Mass/Vol]14.1 g/dL13.0-17.0[facility] Leukocytes [#/volume] corrected for nucleated erythrocytes in Blood by Automated counOrdered By: Maximiliano Belle on 94-67-4940MBP corrected for nucl RBC Auto (Bld) [#/Vol]4.8 10*3/uL4.1-10.5FUC HealthLymphocytes Auto (Bld) [#/Vol]Ordered By: Maximiliano Belle on 36-06-2476Ctoephxixcm (Bld) [#/Vol]0.9 10*3/uL1.00-4.8[facility] HospitalLymphocytes/100 WBC Auto (Bld)Ordered By: Maximiliano Belle on 76-54-7162Kgesjldbfxu/100 WBC (Bld)19.6 %.[facility] HospitalMCH Auto (RBC) [Entitic mass]Ordered By: Maximiliano Belle on 16-07-9012AQK (RBC) [Entitic mass]30.6 pg27.5-35.2FUC HealthMCHC Auto (RBC) [Mass/Vol]Ordered By: Maximiliano Belle on 45-43-1691OQKM (RBC) [Mass/Vol]33.8 g/dL32.5-35.6FUC HealthMCV Auto (RBC) [Entitic vol]Ordered By: Maximiliano Belle on 27-22-8612GEC (RBC) [Entitic vol]90.6 fL83.5-101Prem[facility] HospitalMonocytes Auto (Bld) [#/Vol]Ordered By: Maximiliano Belle on 96-12-3835Yyglefyxq (Bld) [#/Vol]0.6 10*3/uL0.0-0.8[facility] HospitalMonocytes/100 WBC Auto (Bld)Ordered By: Maximiliano Belle on 44-15-2473Rrrlgqtzz/100 WBC (Bld)12.4 %. [facility] HospitalNeutrophils Auto (Bld) [#/Vol]Ordered By: Maximiliano Belle on 77-65-8239Nkkwgxlqetr (Bld) [#/Vol]2.8 10*3/uL1.8-7.7FUC HealthNeutrophils/100 WBC Auto (Bld)Ordered By: Maximiliano Belle on 01-04-1701Kjzedhrldyn/100 WBC (Bld)58.5 %.[facility] No Panel InformationOrdered By: Maximiliano Belle on 41-15-4866Uaiymmudc GFR (CKD-EPI)> 60.0 mL/MinPremier Health Miami Valley HospitalPharmacy Creatinine Clearance (ChemN/[facility] CenterNo Panel Informationon 20-62-5016Vinxlzy INR (LAB)2.6FUC HealthNucleated erythrocytes [Presence] in Blood by Automated countOrdered By: Maximiliano Belle on 25-37-2965Vnbtcbqtr RBC Auto Ql (Bld)0.2 /100{WBC}0-0.5FUC HealthPlatelet mean volume Auto (Bld) [Entitic vol]Ordered By: Maximiliano Belle on 24-94-6864Cmkabsuh mean volume (Bld) [Entitic vol]8.2 fL6.6-10.1 [facility] HospitalPlatelets Auto (Bld) [#/Vol]Ordered By: Maximiliano Belle on 32-69-2070Vfvehdyms (Bld) [#/Vol]225 10*3/eW479-881HkapmpyjgPremier Health Miami Valley HospitalPotassium [Moles/volume] in Serum or PlasmaOrdered By: Maximiliano Belle on 75-74-0078Jmmuafkpi [Moles/Vol]4.2 mmol/L3.5-5.1FUC HealthProtein [Mass/volume] in Serum or PlasmaOrdered By: Maximiliano Belle on 11-20-5540Awfjepb [Mass/Vol]6.5 g/dL6.4-8.9[facility] RBC Auto (Bld) [#/Vol]Ordered By: Maximiliano Belle on 56-74-5759LPC (Bld) [#/Vol] 4.60 10*6/uL3.90-5.60[facility] Centererum or plasma albumin/globulin mass ratioOrdered By: Maximiliano Belle on 05-31-2023 Albumin/Globulin [Mass ratio]1.7 {ratio}[facility] Centererum or plasma anion gap determinationOrdered By: Maximiliano Belle on 75-23-7957Ntrlz gap [Moles/Vol]10.5 mmol/L6.0-15.0[facility] Medical Centerodium [Moles/volume] in Serum or PlasmaOrdered By: Maximiliano Belle on 46-71-3720Dqbbsu [Moles/Vol]139 mmol/Z417-232BqhffahxoPremier Health Miami Valley HospitalUrea nitrogen [Mass/volume] in Serum or PlasmaOrdered By: Maximiliano Belle on 22-00-7648Fxdk nitrogen [Mass/Vol]18 mg/dL7-25[facility] HospitalWBC Auto (Bld) [#/Vol]Ordered By: Maximiliano Belle on 55-58-3118SJH (Bld) [#/Vol]4.8 10*3/uL 4.1-10.5[facility] HealthNo Panel Informationon 05-24-2023 Bedside INR (LAB)2.5[facility]No Panel Informationon 11-96-5695Rnqoycg INR (LAB)3.4[facility] HealthNo Panel Informationon 74-81-2923Mzebomb INR (LAB)3.0[facility] HospitalNo Panel Informationon 16-96-1736Swxbijw INR (LAB)2.8[facility] HospitalProthrombin Time INRon 87-58-6834PKV Coag (PPP) [Relative time]3.2 {INR} [facility] [employer] Other Prothrombin Time INRNortKaleida Health [employer] Other Alanine aminotransferase [Enzymatic activity/volume] in Serum or PlasmaOrdered By: Maximiliano Belle on 94-89-7416FNY [Catalytic activity/Vol]29 U/L7-52[facility] HospitalAlbumin [Mass/volume] in Serum or Plasma by Bromocresol green (BCG) dye binding methoOrdered By: Maximiliano Belle on 25-43-8062Lqclwts BCG dye [Mass/Vol]4.2 g/dL3.5-5.7[facility] HealthAlkaline phosphatase [Enzymatic activity/volume] in Serum or PlasmaOrdered By: Maximiliano Belle on 02-43-0609DCP [Catalytic activity/Vol]38 U/L 34-104[facility] HospitalAspartate aminotransferase [Enzymatic activity/volume] in Serum or PlasmaOrdered By: Maximiliano Belle on 70-47-4305UHA [Catalytic activity/Vol]22 U/G46-93CmujibiwnPremier Health Miami Valley HospitalBasophils Auto (Bld) [#/Vol]Ordered By: Maximiliano Belle on 77-20-0125Fbkjepkgr (Bld) [#/Vol]0.0 10*3/uL0.0-0.2[facility] HealthBasophils/100 WBC Auto (Bld)Ordered By: Maximiliano Belle on 69-92-4667Zupslzscp/100 WBC (Bld)0.8 %. [facility] HospitalBilirubin.total [Mass/volume] in Serum or PlasmaOrdered By: Maximiliano Belle on 48-84-0440Gvqotzezt [Mass/Vol]0.4 mg/dL 0.3-1.0[facility] HospitalCalcium [Mass/volume] in Serum or Plasma Ordered By: Maximiliano Belle on 74-17-8255Jraxkvr [Mass/Vol]9.2 mg/dL8.6-10.3 [facility] HospitalCarbon dioxide, total [Moles/volume] in Serum or PlasmaOrdered By: Maximiliano Belle on 24-57-1123DL7 [Moles/Vol]26.7 mmol/L 21.0-31.0[facility] HospitalChloride [Moles/volume] in Serum or PlasmaOrdered By: Maximiliano Belle on 08-23-6355Ydlmidva [Moles/Vol]103 mmol/L 98-107[facility] HospitalCreatinine [Mass/volume] in Serum or PlasmaOrdered By: Maximiliano Belle on 48-36-0476Jzxwknxenf [Mass/Vol]0.87 mg/dL 0.70-1.30[facility] HospitalEosinophils Auto (Bld) [#/Vol]Ordered By: Maximiliano Belle on 08-93-0891Ibidribpual (Bld) [#/Vol]0.1 10*3/uL0.0-0.45 [facility] HospitalEosinophils/100 WBC Auto (Bld)Ordered By: Maximiliano Belle on 60-77-2082Mfzljpvucpk/100 WBC (Bld)2.1 %.[facility] HospitalErythrocyte distribution width Auto (RBC) [Ratio]Ordered By: Maximiliano Belle on 59-90-2065Illqurihmww distribution width (RBC) [Ratio]16.1 % 12.0-14.8[facility] HospitalErythrocyte sedimentation rate by Photometric methodOrdered By: Maximiliano Belle on 64-94-6298BZM Photometric method (Bld) [Velocity]13 mm/hr0-19[facility] HospitalGlobulin Calc (S) [Mass/Vol]Ordered By: Maximiliano Belle on 31-43-5435Bhtsogxj (S) [Mass/Vol]2.4 g/dLPremier Health Miami Valley HospitalGlucose [Mass/volume] in Serum or Plasma Ordered By: Maximiliano Belle on 93-51-0470Lxzrmbt [Mass/Vol]231 mg/zK52-882 [facility] HospitalComment on above:ADA recommended reference rangeRandom Glucose Reference Range is dependent on time and content of last meal. Glucose of more than 200 mg/dL in a nonstressed, ambulatory subject supports the diagnosisof Diabetes Mellitus.Hematocrit Auto (Bld) [Volume fraction]Ordered By: Maximiliano Belle on 44-47-0129Fjyjyiceso (Bld) [Volume fraction]38.1 %38.8-50.0[facility] HospitalHemoglobin [Mass/volume] in BloodOrdered By: Maximiliano Belle on 49-87-1032Qlsvrbkduc (Bld) [Mass/Vol]13.3 g/dL13.0-17.0[facility] HospitalLeukocytes [#/volume] corrected for nucleated erythrocytes in Blood by Automated coun Ordered By: Maximiliano Belle on 32-16-9735FZK corrected for nucl RBC Auto (Bld) [#/Vol]4.6 10*3/uL4.1-10.5FUC HealthLymphocytes Auto (Bld) [#/Vol]Ordered By: Maximiliano Belle on 46-18-2880Xnqvkoeuayz (Bld) [#/Vol] 0.5 10*3/uL1.00-4.8[facility] HospitalLymphocytes/100 WBC Auto (Bld)Ordered By: Maximiliano Belle on 28-27-9167Zexqqxtsxhn/100 WBC (Bld)10.7 %. [facility] Auto (RBC) [Entitic mass]Ordered By: Maximiliano Belle on 84-09-3451KXT (RBC) [Entitic mass]30.5 pg27.5-35.2FUC HealthMCHC Auto (RBC) [Mass/Vol]Ordered By: Maximiliano Belle on 22-35-7382MAQN (RBC) [Mass/Vol]34.8 g/dL32.5-35.6FUC HealthMCV Auto (RBC) [Entitic vol]Ordered By: Maximiliano Belle on 17-29-5654OAV (RBC) [Entitic vol]87.5 fL83.5-101[facility] HospitalMonocytes Auto (Bld) [#/Vol]Ordered By: Maximiliano Belle on 24-33-2741Dlwuydpks (Bld) [#/Vol]0.2 10*3/uL0.0-0.8[facility] HospitalMonocytes/100 WBC Auto (Bld)Ordered By: Maximiliano Belle on 01-04-9436Uejrkjoel/100 WBC (Bld)5.3 %. [facility] HospitalNeutrophils Auto (Bld) [#/Vol]Ordered By: Maximiliano Belle on 94-33-6691Iivokwirrci (Bld) [#/Vol]3.7 10*3/uL1.8-7.7FUC HealthNeutrophils/100 WBC Auto (Bld)Ordered By: Maximiliano Belle on 19-52-8087Grmkdwpseyk/100 WBC (Bld)81.1 %.[facility] No Panel InformationOrdered By: Maximiliano Belle on 25-67-1692Uasfebcrv GFR (CKD-EPI)> 60.0 mL/MinPremier Health Miami Valley HospitalPharmacy Creatinine Clearance (ChemN/AFUC HealthNucleated erythrocytes [Presence] in Blood by Automated countOrdered By: Maximiliano Belle on 03-08-2023 Nucleated RBC Auto Ql (Bld)0.1 /100{WBC}0-0.5[facility] Platelet mean volume Auto (Bld) [Entitic vol]Ordered By: Maximiliano Belle on 43-62-5453Vxhplenu mean volume (Bld) [Entitic vol]8.0 fL6.6-10.1FUC HealthPlatelets Auto (Bld) [#/Vol]Ordered By: Maximiliano Belle on 06-30-3028Elhtjqrnj (Bld) [#/Vol]188 10*3/zD646-486NttvtomemPremier Health Miami Valley HospitalPotassium [Moles/volume] in Serum or PlasmaOrdered By: Maximiliano Belle on 97-34-3350Mkmthooxh [Moles/Vol]3.7 mmol/L3.5-5.1F[facility] HealthProtein [Mass/volume] in Serum or PlasmaOrdered By: Maximiliano Belle on 89-16-9313Wqxutth [Mass/Vol]6.6 g/dL6.4-8.9[facility] HospitalRBC Auto (Bld) [#/Vol]Ordered By: Maximiliano Belle on 78-23-4106WDX (Bld) [#/Vol]4.35 10*6/uL3.90-5.60[facility] Centererum or plasma albumin/globulin mass ratioOrdered By: Maximiliano Belle on 03-08-2023 Albumin/Globulin [Mass ratio]1.8 {ratio}[facility] Centererum or plasma anion gap determinationOrdered By: Maximiliano Belle on 52-93-5657Jyruf gap [Moles/Vol]12.0 mmol/L6.0-15.0[facility] Medical Centerodium [Moles/volume] in Serum or PlasmaOrdered By: Maximiliano Belle on 18-08-7182Zqnnsf [Moles/Vol]138 mmol/M090-871MuvwoqhpvPremier Health Miami Valley HospitalUrea nitrogen [Mass/volume] in Serum or PlasmaOrdered By: Maximiliano Belle on 25-23-3907Ubpv nitrogen [Mass/Vol]13 mg/dL7-25[facility] HospitalWBC Auto (Bld) [#/Vol]Ordered By: Maximiliano Belle on 41-52-8516VUG (d) [#/Vol]4.6 10*3/uL 4.1-10.5FUC HealthProthrombin Time INRon 93-24-6767TEN Coag (PPP) [Relative time]2.2 {INR}[facility] [employer] [employer] Other Prothrombin Time INRNort [employer] Other Activated partial thromboplastin time (aPTT) in platelet poor plasma by coagulation aOrdered By: Noe Varela on 10-53-6192dEEE Coag (PPP) [Time]29.1 s25.1-36.5FUC HealthComment on above:A hematocrit value greater than 55% may lead to inaccurate results in coagulation testing. Patientshaving hematocrit values >55% require a special collection tube for coagulation studies. Please contact the laboratory at [phone] for redraw instructions.Glucose Glucometer (BldC) [Mass/Vol]Ordered By: Mitch Sommers on 23-25-0566Xgeqmje [Mass/Vol]127 mg/dLPremier Health Miami Valley HospitalComment on above:Random Glucose Reference Range is dependent on time and content of last meal. Glucose of more than 200 mg/dL in a nonstressed, ambulatory subject supports the diagnosis of Diabetes Mellitus.INR in Platelet poor plasma by Coagulation assayOrdered By: Noe Varela on 55-31-0936PXP Coag (PPP) [Relative time]1.1 {INR}[facility] HospitalComschoolcraft memorial hospital on above: INR Therapeutic Range A) Pre- and Peroperative OAT started two weeks before surgery. NOT HIP SURGERY: 1.5 - 2.5 HIP SURGERY: 2 - 3B) Primary and secondary prevention of venous THROMBOSIS: 2 - 3C) Active venous thrombosis, pulmonary embolismand prevention of recurrent venous thrombosis: 2 - 3D) Prevention of arterial thromboembolismincluding patients with mechanical heart valves: 3 - 4.5 Prothrombin time (PT)Ordered By: Noe Varela on 09-12-4847MA Coag (PPP) [Time] 12.3 s9.0-12.9[facility] HospitalComschoolcraft memorial hospital on above:A hematocrit value greater than 55% may lead to inaccurate results in coagulation testing. Patientshaving hematocrit values >55% require a special collection tube for coagulation studies. Please contact the laboratory at [phone] for redraw instructions.Prothrombin Time INRon 59-88-0217QUW Coag (PPP) [Relative time]2.7 {INR}[employer] Other Prothrombin Time INRNort [employer] Other Basophils Auto (Bld) [#/Vol]Ordered By: Mitch Sommers on 08-80-3726Iybvfzhdt (Bld) [#/Vol]0.0 10*3/uL0.0-0.2FUC HealthBasophils/100 WBC Auto (Bld)Ordered By: Mitch Sommers on 02-03-2023 Basophils/100 WBC (Bld)0.7 %.[facility] HospitalCalcium [Mass/volume] in Serum or PlasmaOrdered By: Mitch Sommers on 89-11-6206Younirq [Mass/Vol]9.7 mg/dL8.6-10.3F[facility] HealthCarbon dioxide, total [Moles/volume] in Serum or PlasmaOrdered By: Mitch Sommers on 02-03-2023 CO2 [Moles/Vol]30.4 mmol/L21.0-31.0[facility] HospitalChloride [Moles/volume] in Serum or PlasmaOrdered By: Mitch Sommers on 26-49-4652Hzmfgduz [Moles/Vol]101 mmol/V82-192NgcwedkmpPremier Health Miami Valley HospitalCreatinine [Mass/volume] in Serum or PlasmaOrdered By: Mitch Sommers on 02-03-2023 Creatinine [Mass/Vol]0.86 mg/dL0.70-1.30[facility] Eosinophils Auto (Bld) [#/Vol]Ordered By: Mitch Sommers on 99-43-0897Mryyiwuvgsv (Bld) [#/Vol]0.1 10*3/uL0.0-0.45[facility] Eosinophils/100 WBC Auto (Bld)Ordered By: Mitch Sommers on 02-03-2023 Eosinophils/100 WBC (Bld)1.9 %.[facility] HospitalErythrocyte distribution width Auto (RBC) [Ratio]Ordered By: Mitch Sommers on 02-03-2023 Erythrocyte distribution width (RBC) [Ratio]16.9 %12.0-14.8[facility] HospitalGlucose [Mass/volume] in Serum or PlasmaOrdered By: Mitch Sommers on 28-38-9497Cwbxqlk [Mass/Vol]149 mg/vF05-920SrywsremoPrem[facility] Health [facility] Comment on above:ADA recommended reference rangeRandom Glucose Reference Range is dependent on time and content of last meal. Glucose of more than 200 mg/dL in a nonstressed, ambulatory subject supports the diagnosisof Diabetes Mellitus. Hematocrit Auto (Bld) [Volume fraction]Ordered By: Mitch Sommers on 02-03-2023 Hematocrit (Bld) [Volume fraction]40.0 %38.8-50.0[facility] HospitalHemoglobin [Mass/volume] in BloodOrdered By: Mitch Sommers on 02-03-2023 Hemoglobin (Bld) [Mass/Vol]13.4 g/dL13.0-17.0[facility] Leukocytes [#/volume] corrected for nucleated erythrocytes in Blood by Automated counOrdered By: Mitch Sommers on 29-41-2818VER corrected for nucl RBC Auto (Bld) [#/Vol]5.5 10*3/uL4.1-10.5FUC HealthLymphocytes Auto (Bld) [#/Vol]Ordered By: Mitch Sommers on 71-13-8481Vedyqihzcxe (Bld) [#/Vol]0.5 10*3/uL1.00-4.8[facility] HospitalLymphocytes/100 WBC Auto (Bld)Ordered By: Mitch Sommers on 65-30-8812Qvoxbsafyef/100 WBC (Bld)8.3 %. [facility]H Auto (RBC) [Entitic mass]Ordered By: Mitch Sommers on 54-28-3658IJL (RBC) [Entitic mass]29.6 pg27.5-35.2FUC HealthMCHC Auto (RBC) [Mass/Vol]Ordered By: Mitch Sommers on 02-03-2023 MCHC (RBC) [Mass/Vol]33.6 g/dL32.5-35.6FUC HealthMCV Auto (RBC) [Entitic vol]Ordered By: Mitch Sommers on 99-61-7284THH (RBC) [Entitic vol]88.0 fL83.5-101[facility] HospitalMonocytes Auto (Bld) [#/Vol] Ordered By: Mitch Sommers on 17-24-6132Fcfzgiavq (Bld) [#/Vol]0.3 10*3/uL0.0-0.8 [facility] HospitalMonocytes/100 WBC Auto (Bld)Ordered By: Mitch Sommers on 61-06-7236Ynrmxcvvx/100 WBC (Bld)5.3 %.[facility] HospitalNeutrophils Auto (Bld) [#/Vol]Ordered By: Mitch Sommers on 02-03-2023 Neutrophils (Bld) [#/Vol]4.6 10*3/uL1.8-7.7[facility] Neutrophils/100 WBC Auto (Bld)Ordered By: Mitch Sommers on 02-03-2023 Neutrophils/100 WBC (Bld)83.8 %.[facility] HospitalNo Panel InformationOrdered By: Mitch Sommers on 46-71-2579Krillisyo GFR (CKD-EPI)> 60.0 mL/MinPremier Health Miami Valley HospitalPharmacy Creatinine Clearance (ChemN/A [facility] HospitalNucleated erythrocytes [Presence] in Blood by Automated countOrdered By: Mitch Sommers on 45-60-2224Rvwzvuaao RBC Auto Ql (Bld)0.0 /100{WBC}0-0.5FUC HealthPlatelet mean volume Auto (Bld) [Entitic vol]Ordered By: Mitch Sommers on 45-28-3410Ekcquesy mean volume (Bld) [Entitic vol]7.8 fL6.6-10.1[facility] Platelets Auto (Bld) [#/Vol]Ordered By: Mitch Sommers on 79-19-1473Blzwnjkws (Bld) [#/Vol]184 10*3/gF239-757FwqhmfhgjPremier Health Miami Valley HospitalPotassium [Moles/volume] in Serum or PlasmaOrdered By: Mitch Sommers on 02-03-2023 Potassium [Moles/Vol]4.0 mmol/L3.5-5.1FUC HealthRBC Auto (Bld) [#/Vol]Ordered By: Mitch Sommers on 08-99-2291DGP (Bld) [#/Vol]4.54 10*6/uL3.90-5.60[facility] Centererum or plasma anion gap determinationOrdered By: Mitch Sommers on 38-89-7443Cfxly gap [Moles/Vol]10.6 mmol/L6.0-15.0[facility] Medical Centerodium [Moles/volume] in Serum or PlasmaOrdered By: Mitch Sommers on 85-32-1720Ipaltl [Moles/Vol]138 mmol/L 136-145[facility] HospitalUrea nitrogen [Mass/volume] in Serum or PlasmaOrdered By: Mitch Sommers on 52-55-4705Djdo nitrogen [Mass/Vol]18 mg/dL 7-25[facility] HospitalWBC Auto (Bld) [#/Vol]Ordered By: Mitch Sommers on 98-27-8018LWB (Bld) [#/Vol]5.5 10*3/uL4.1-10.5FUC HealthECG [address] [place] 74-52-4652Jmvrhv fibrillation with controlled rate CPAAdena Health System Work Phone: Prothrombin Time INRon 67-63-2299VWZ Coag (PPP) [Relative time]3.0 {INR}[facility] [employer] Other Prothrombin Time INRNocenterpointe hospital [facility] [employer] Other Alanine aminotransferase [Enzymatic activity/volume] in Serum or PlasmaOrdered By: Maximiliano Belle on 03-81-2040KAY [Catalytic activity/Vol]13 U/L7-52[facility] HospitalAlbumin [Mass/volume] in Serum or Plasma by Bromocresol green (BCG) dye binding methoOrdered By: Maximiliano Belle on 12-50-9877Epqfdgi BCG dye [Mass/Vol]3.9 g/dL3.5-5.7FUC HealthAlkaline phosphatase [Enzymatic activity/volume] in Serum or PlasmaOrdered By: Maximiliano Belle on 75-05-4132HKT [Catalytic activity/Vol]44 U/L 34-104[facility] HospitalAspartate aminotransferase [Enzymatic activity/volume] in Serum or PlasmaOrdered By: Maximiliano Belle on 16-72-7852TJK [Catalytic activity/Vol]13 U/C34-54WamjjrmrdPremier Health Miami Valley HospitalBasophils Auto (Bld) [#/Vol]Ordered By: Maximiliano Belle on 33-89-3061Ctdrdkrhx (Bld) [#/Vol]0.1 10*3/uL0.0-0.2FUC HealthBasophils/100 WBC Auto (Bld)Ordered By: Maximiliano Belle on 51-66-7279Ylqlxgspc/100 WBC (Bld)1.2 %. [facility] HospitalBilirubin.total [Mass/volume] in Serum or PlasmaOrdered By: Maximiliano Belle on 63-95-5623Ahrebenwj [Mass/Vol]0.6 mg/dL 0.3-1.0[facility] HospitalCalcium [Mass/volume] in Serum or Plasma Ordered By: Maximiliano Belle on 68-35-7224Dfmjmbr [Mass/Vol]9.4 mg/dL8.6-10.3 [facility] HospitalCarbon dioxide, total [Moles/volume] in Serum or PlasmaOrdered By: Maximiliano Belle on 60-15-0126DJ2 [Moles/Vol]27.6 mmol/L 21.0-31.0[facility] HospitalChloride [Moles/volume] in Serum or PlasmaOrdered By: Maximiliano Belle on 62-81-6787Lnxuwgig [Moles/Vol]102 mmol/L 98-107[facility] HospitalCreatinine [Mass/volume] in Serum or PlasmaOrdered By: Maximiliano Belle on 98-02-8407Kdlspmmtdv [Mass/Vol]0.82 mg/dL 0.70-1.30[facility] HospitalEosinophils Auto (Bld) [#/Vol]Ordered By: Maximiliano Belle on 39-09-4108Yswrcvfcqte (Bld) [#/Vol]0.1 10*3/uL0.0-0.45 [facility] HospitalEosinophils/100 WBC Auto (Bld)Ordered By: Maximiliano Belle on 13-74-7404Chhyiknccih/100 WBC (Bld)2.2 %.[facility] HospitalErythrocyte distribution width Auto (RBC) [Ratio]Ordered By: Maximiliano Belle on 53-07-0448Xvrvhrnjhyk distribution width (RBC) [Ratio]15.8 % 12.0-14.8[facility] HospitalErythrocyte sedimentation rate by Photometric methodOrdered By: Maximiliano Belle on 94-36-1231ACR Photometric method (Bld) [Velocity]18 mm/hr0-19[facility] HospitalGlobulin Calc (S) [Mass/Vol]Ordered By: Maximiliano Belle on 98-06-1824Beiscels (S) [Mass/Vol]2.4 g/dLPremier Health Miami Valley HospitalGlucose [Mass/volume] in Serum or Plasma Ordered By: Maximiliano Belle on 09-21-8147Wmqxotx [Mass/Vol]213 mg/kY11-212 [facility] HospitalComment on above:ADA recommended reference rangeRandom Glucose Reference Range is dependent on time and content of last meal. Glucose of more than 200 mg/dL in a nonstressed, ambulatory subject supports the diagnosisof Diabetes Mellitus.Hematocrit Auto (Bld) [Volume fraction]Ordered By: Maximiliano Belle on 34-78-8060Ckzqkcxsyn (Bld) [Volume fraction]34.8 %38.8-50.0[facility] HospitalHemoglobin [Mass/volume] in BloodOrdered By: Maximiliano Belle on 42-06-0250Vnzelpwaxn (Bld) [Mass/Vol]11.6 g/dL13.0-17.0[facility] HospitalLeukocytes [#/volume] corrected for nucleated erythrocytes in Blood by Automated coun Ordered By: Maximiliano Belle on 69-11-7290HXH corrected for nucl RBC Auto (Bld) [#/Vol]5.4 10*3/uL4.1-10.5FUC HealthLymphocytes Auto (Bld) [#/Vol]Ordered By: Maximiliano Belle on 59-97-2975Qiezsgufvav (Bld) [#/Vol] 0.5 10*3/uL1.00-4.8[facility] HospitalLymphocytes/100 WBC Auto (Bld)Ordered By: Maximiliano Belle on 90-61-6981Eksmexlissw/100 WBC (Bld)9.7 %. [facility] HospitalMCH Auto (RBC) [Entitic mass]Ordered By: Maximiliano Belle on 14-03-4860EMD (RBC) [Entitic mass]29.0 pg27.5-35.2FUC HealthMCHC Auto (RBC) [Mass/Vol]Ordered By: Maximiliano Belle on 73-48-2509BLAK (RBC) [Mass/Vol]33.2 g/dL32.5-35.6FUC HealthMCV Auto (RBC) [Entitic vol]Ordered By: Maximiliano Belle on 86-62-2063ETY (RBC) [Entitic vol]87.4 fL83.5-101[facility] HospitalMonocytes Auto (Bld) [#/Vol]Ordered By: Maximiliano Belle on 31-84-0069Vdofrbbkg (Bld) [#/Vol]0.2 10*3/uL0.0-0.8[facility] HospitalMonocytes/100 WBC Auto (Bld)Ordered By: Maximiliano Belle on 69-19-3750Pkvlwiwbo/100 WBC (Bld)3.5 %. [facility] HospitalNeutrophils Auto (Bld) [#/Vol]Ordered By: Maximiliano Belle on 98-71-4089Vhmndcmscmc (Bld) [#/Vol]4.5 10*3/uL1.8-7.7FUC HealthNeutrophils/100 WBC Auto (Bld)Ordered By: Maximiliano Belle on 43-84-4612Rxhekyljwuu/100 WBC (Bld)83.4 %.[facility] No Panel InformationOrdered By: Maximiliano Belle on 50-48-5651Hxuvntyaf GFR (CKD-EPI)> 60.0 mL/MinPremier Health Miami Valley HospitalPharmacy Creatinine Clearance (ChemN/AFUC HealthNucleated erythrocytes [Presence] in Blood by Automated countOrdered By: Maximiliano Belle on 12-14-2022 Nucleated RBC Auto Ql (Bld)0.1 /100{WBC}0-0.5[facility] Platelet mean volume Auto (Bld) [Entitic vol]Ordered By: Maximiliano Belle on 75-78-0173Shclmiqf mean volume (Bld) [Entitic vol]8.0 fL6.6-10.1FUC HealthPlatelets Auto (Bld) [#/Vol]Ordered By: Maximiliano Belle on 49-17-3466Njdywkwbo (Bld) [#/Vol]205 10*3/rL021-128TygagmmrpPremier Health Miami Valley HospitalPotassium [Moles/volume] in Serum or PlasmaOrdered By: Maximiliano Belle on 73-27-0112Typtrmlxs [Moles/Vol]4.2 mmol/L3.5-5.1FUC HealthProtein [Mass/volume] in Serum or PlasmaOrdered By: Maximiliano Belle on 98-17-8967Etbdsxj [Mass/Vol]6.3 g/dL6.4-8.9[facility] HospitalRBC Auto (Bld) [#/Vol]Ordered By: Maximiliano Belle on 41-52-2865UPS (Bld) [#/Vol]3.99 10*6/uL3.90-5.60[facility] Centererum or plasma albumin/globulin mass ratioOrdered By: Maximiliano Belle on 12-14-2022 Albumin/Globulin [Mass ratio]1.6 {ratio}[facility] Centererum or plasma anion gap determinationOrdered By: Maximiliano Belle on 64-03-0746Gcjgf gap [Moles/Vol]10.6 mmol/L6.0-15.0[facility] Medical Centerodium [Moles/volume] in Serum or PlasmaOrdered By: Maximiliano Belle on 27-00-9973Pqnqmz [Moles/Vol]136 mmol/F317-434WtfrlfezxPremier Health Miami Valley HospitalUrea nitrogen [Mass/volume] in Serum or PlasmaOrdered By: Maximiliano Belle on 45-94-0144Gmxo nitrogen [Mass/Vol]13 mg/dL7-25[facility] HospitalWBC Auto (Bld) [#/Vol]Ordered By: Maximiliano Belle on 62-67-1876FUE (Bld) [#/Vol]5.4 10*3/uL 4.1-10.5FUC HealthCarbon dioxide, total [Moles/volume] in Serum or PlasmaOrdered By: Jose Angel Palmer on 94-33-8102QV1 [Moles/Vol]28.5 mmol/L21.0-31.0[facility] HospitalChloride [Moles/volume] in Serum or PlasmaOrdered By: Jose Angel Palmer on 10-03-4112Oihfrdja [Moles/Vol]104 mmol/P89-230ZfuyjuidqPremier Health Miami Valley HospitalINR in Platelet poor plasma by Coagulation assayOrdered By: Jose Angel Palmer on 63-34-1457QJJ Coag (PPP) [Relative time]4.3 {INR}[facility] HospitalComment on above:INR Therapeutic Range A) Pre- and Peroperative OAT started two weeks before surgery. NOT HIP SURGERY: 1.5 - 2.5 HIP SURGERY: 2 - 3B) Primary and secondary prevention of venous THROMBOSIS: 2 - 3C) Active venous thrombosis, pulmonary embolismand prevention of recurrent venous thrombosis: 2 - 3D) Prevention of arterial thromboembolismincluding patients with mechanical heart valves: 3 - 4.5Potassium [Moles/volume] in Serum or PlasmaOrdered By: Jose Angel Palmer on 12-13-2022 Potassium [Moles/Vol]3.8 mmol/L3.5-5.1[facility] Prothrombin time (PT)Ordered By: Jose Angel Palmer on 98-10-6812PC Coag (PPP) [Time]50.4 s9.0-12.9[facility] HospitalComment on above:A hematocrit value greater than 55% may lead to inaccurate results in coagulation testing. Patientshaving hematocrit values >55% require a special collection tube for coagulation studies. Please contact the laboratory at [phone] for redraw instructions.Serum or plasma anion gap determinationOrdered By: Jose Angel Palmer on [id number] gap [Moles/Vol]10.3 mmol/L6.0-15.0[facility] Centerodium [Moles/volume] in Serum or PlasmaOrdered By: Jose Angel Palmer on [id number] [Moles/Vol]139 mmol/K670-359WpwumbqomPremier Health [facility] Valley HospitalProthrombin Time INRon [id number] Coag (PPP) [Relative time]2.6 {INR}[place] Games Other Prothrombin Time [employer] Other Prothrombin Time INRon 81-71-9866DVZ Coag (PPP) [Relative time]3.1 {INR}[employer] Other Prothrombin Time [employer] Other Prothrombin Time INRon 77-07-2811MHD Coag (PPP) [Relative time]1.8 {INR}[employer] Other Prothrombin Time [employer] Other Prothrombin Time INRon 75-72-7445GIT Coag (PPP) [Relative time]3.5 {INR}[employer] Other Prothrombin Time [employer] Other Prothrombin Time INRon 75-61-5538VME Coag (PPP) [Relative time]3.5 {INR}[employer] Other Prothrombin Time [employer] Other Alanine aminotransferase [Enzymatic activity/volume] in Serum or PlasmaOrdered By: Analilia Vera on 79-36-4064JHR [Catalytic activity/Vol]22 U/L7-52[facility] HospitalAlbumin [Mass/volume] in Serum or Plasma by Bromocresol green (BCG) dye binding methoOrdered By: Analilia Vera on 90-10-2071Xtcymcp BCG dye [Mass/Vol]3.7 g/dL3.5-5.7FUC HealthAlkaline phosphatase [Enzymatic activity/volume] in Serum or PlasmaOrdered By: Analilia Vera on 46-36-1861HXB [Catalytic activity/Vol]45 U/O79-416EjtnuyhzuPremier Health Miami Valley HospitalAspartate aminotransferase [Enzymatic activity/volume] in Serum or PlasmaOrdered By: Analilia Vera on 04-19-9356HIU [Catalytic activity/Vol]19 U/E89-49DkuibwagjPremier Health Miami Valley HospitalBasophils Auto (Bld) [#/Vol]Ordered By: Analilia Vera on 36-09-6582Jkcxjduol (Bld) [#/Vol]0.0 10*3/uL0.0-0.2FUC HealthBasophils/100 WBC Auto (Bld)Ordered By: Analiila Vera on 11-12-9680Iazdcjvvs/100 WBC (Bld)1.2 %. [facility] HospitalBilirubin.total [Mass/volume] in Serum or PlasmaOrdered By: Analilia Vera on 63-36-4419Kfxseoytd [Mass/Vol]0.5 mg/dL 0.3-1.0[facility] HospitalCalcium [Mass/volume] in Serum or Plasma Ordered By: Analilia Vera on 97-90-0177Figwglj [Mass/Vol]8.8 mg/dL8.6-10.3 [facility] HospitalCarbon dioxide, total [Moles/volume] in Serum or PlasmaOrdered By: Analilia Vera on 46-30-1285XG4 [Moles/Vol]26.0 mmol/L 21.0-31.0[facility] HospitalChloride [Moles/volume] in Serum or PlasmaOrdered By: Analilia Vera on 31-19-3439Xtfyqdwq [Moles/Vol]104 mmol/L 98-107[facility] HospitalCreatinine [Mass/volume] in Serum or PlasmaOrdered By: Analilia Vera on 73-60-5375Wrghtvbnlr [Mass/Vol]0.91 mg/dL 0.70-1.30[facility] HospitalEosinophils Auto (Bld) [#/Vol]Ordered By: Analilia Vera on 91-41-4056Znpcyxvegsk (Bld) [#/Vol]0.3 10*3/uL0.0-0.45 [facility] HospitalEosinophils/100 WBC Auto (Bld)Ordered By: Analilia Vera on 48-22-2938Afefwhouldx/100 WBC (Bld)8.1 %.[facility] HospitalErythrocyte distribution width Auto (RBC) [Ratio]Ordered By: Analilia Vera on 43-66-2661Itxgzdccffd distribution width (RBC) [Ratio]15.4 % 12.0-14.8[facility] HospitalErythrocyte sedimentation rate by Photometric methodOrdered By: Analilia Vera on 78-35-4061UCL Photometric method (Bld) [Velocity]15 mm/hr0-19[facility] HospitalGlobulin Calc (S) [Mass/Vol]Ordered By: Analilia Vera on 04-31-8539Tnyaeoiv (S) [Mass/Vol]2.6 g/dLPremier Health Miami Valley HospitalGlucose [Mass/volume] in Serum or Plasma Ordered By: Analilia Vera on 51-83-1952Yrptkyo [Mass/Vol]115 mg/lM12-978 [facility] HospitalComment on above:ADA recommended reference rangeRandom Glucose Reference Range is dependent on time and content of last meal. Glucose of more than 200 mg/dL in a nonstressed, ambulatory subject supports the diagnosisof Diabetes Mellitus.Hematocrit Auto (Bld) [Volume fraction]Ordered By: Analilia Vera on 97-77-8304Cnkedcizdb (Bld) [Volume fraction]36.1 %38.8-50.0[facility] HospitalHemoglobin [Mass/volume] in BloodOrdered By: Analilia Vera on 32-17-7942Atonceaswf (Bld) [Mass/Vol]12.4 g/dL13.0-17.0[facility] HospitalLeukocytes [#/volume] corrected for nucleated erythrocytes in Blood by Automated coun Ordered By: Analilia Vera on 04-05-4277LTP corrected for nucl RBC Auto (Bld) [#/Vol]4.2 10*3/uL4.1-10.5FUC HealthLymphocytes Auto (Bld) [#/Vol]Ordered By: Analilia Vera on 80-62-1938Rfvrdjfwmcr (Bld) [#/Vol] 0.7 10*3/uL1.00-4.8[facility] HospitalLymphocytes/100 WBC Auto (Bld)Ordered By: Analilia Vera on 19-41-6806Korrbfhlukv/100 WBC (Bld)16.0 %. [facility] HospitalMCH Auto (RBC) [Entitic mass]Ordered By: Analilia Vera on 58-65-1240YYE (RBC) [Entitic mass]30.0 pg27.5-35.2FUC HealthMCHC Auto (RBC) [Mass/Vol]Ordered By: Analilia Vera on 24-83-9607HSTG (RBC) [Mass/Vol]34.2 g/dL32.5-35.6FUC HealthMCV Auto (RBC) [Entitic vol]Ordered By: Analilia Vera on 13-02-8373JKD (RBC) [Entitic vol]87.7 fL83.5-101[facility] HospitalMonocytes Auto (Bld) [#/Vol]Ordered By: Analilia Vera on 80-57-0505Mfglfqaut (Bld) [#/Vol]0.4 10*3/uL0.0-0.8[facility] HospitalMonocytes/100 WBC Auto (Bld)Ordered By: Analilia Vera on 60-29-4894Tdrlurdjm/100 WBC (Bld)9.4 %. [facility] HospitalNeutrophils Auto (Bld) [#/Vol]Ordered By: Analilia Vera on 14-20-6599Kijbozzctmh (Bld) [#/Vol]2.7 10*3/uL1.8-7.7FUC HealthNeutrophils/100 WBC Auto (Bld)Ordered By: Analilia Vera on 61-56-8515Ymvsoalaehz/100 WBC (Bld)65.3 %.[facility] HospitalNo Panel InformationOrdered By: Analilia Vera on 85-37-1297Qwgehwsjp GFR (CKD-EPI)> 60.0 mL/MinPremier Health Miami Valley HospitalPharmacy Creatinine Clearance (ChemN/AFUC HealthNucleated erythrocytes [Presence] in Blood by Automated countOrdered By: Analilia Vera on 10-20-2022 Nucleated RBC Auto Ql (Bld)0.2 /100{WBC}0-0.5[facility] Platelet mean volume Auto (Bld) [Entitic vol]Ordered By: Analilia Vera on 87-97-2860Vkmjxvgm mean volume (Bld) [Entitic vol]7.6 fL6.6-10.1FUC HealthPlatelets Auto (Bld) [#/Vol]Ordered By: Analilia Vera on 19-72-5864Orjxwnepm (Bld) [#/Vol]145 10*3/tF992-839UhhanvbviPremier Health Miami Valley HospitalPotassium [Moles/volume] in Serum or PlasmaOrdered By: Analilia Vera on 41-25-5697Icwxywnyx [Moles/Vol]3.9 mmol/L3.5-5.1FUC HealthProtein [Mass/volume] in Serum or PlasmaOrdered By: Analilia Vera on 70-00-0277Yfwfnam [Mass/Vol]6.3 g/dL6.4-8.9[facility] HospitalRBC Auto (Bld) [#/Vol]Ordered By: Analilia Vera on 49-46-5902PTU (Bld) [#/Vol]4.12 10*6/uL3.90-5.60[facility] Centererum or plasma albumin/globulin mass ratioOrdered By: Analilia Vera on 10-20-2022 Albumin/Globulin [Mass ratio]1.4 {ratio}[facility] Centererum or plasma anion gap determinationOrdered By: Analilia Vera on 08-19-3739Opmnv gap [Moles/Vol]8.9 mmol/L6.0-15.0[facility] Medical Centerodium [Moles/volume] in Serum or PlasmaOrdered By: Analilia Vera on 77-31-3379Jprcos [Moles/Vol]135 mmol/P461-987OhyquzulfPremier Health Miami Valley HospitalUrea nitrogen [Mass/volume] in Serum or PlasmaOrdered By: Analilia Vera on 41-82-5997Kayl nitrogen [Mass/Vol]10 mg/dL7-25[facility] HospitalWBC Auto (Bld) [#/Vol]Ordered By: Analilia Vera on 52-17-4856XCI (Bld) [#/Vol]4.2 10*3/uL 4.1-10.5FUC HealthOffice Visit (Cardiology)on 10-15-2022 Follow-up visitDiagnoses/Problems Assessed Persistent atrial fibrillation (427.31) (I48.19) Atrial flutter (427.32) (I48.92) Essential hypertension (401.9) (I10) Former smoker (V15.82) (Z87.891) Quit smoking 17 years ago 1 ppd Hyperlipidemia (272.4) (E78.5) Rheumatoid arthritis (714.0) (M06.9) Class 1 obesity with body mass index (BMI) of 33.0 to 33.9 in adult (278.00,V85.33) (E66.9,Z68.33) Diabetes mellitus (250.00) (E11.9) Orders Class 1 obesity with body mass index (BMI) of 33.0 to 33.9 in adult Healthy Weight Tips; Status:Complete - Retrospective Authorization; Done: [id number] Some eating tips that can help you lose weight.; Status:Complete - Retrospective Authorization; Done: [id number] Persistent atrial fibrillation Cardioversion; Status:Active - Retrospective Authorization; Requested for:[id number]; SocHx: Former smoker Tobacco Use Screening; Status:Complete; Done: [id number] Patient Instructions Please bring all medicines, vitamins, and herbal supplements with you when you come to the office. Prescriptions will not be filled unless you are compliant with your follow up appointments or have a follow up appointment scheduled as per instruction of your physician. Refills should be requested at the time of your visit. Cardioversion Follow-up after testing completed Same meds. Chief Complaint NEREYDA BARKER is being seen for Discuss Afib treatment. History of Present Illness Patient is here for follow-up continue management for persistent atrial fibrillation, obesity and hypertension. Last time I saw him he was in atrial fibrillation. We increase his Rythmol. He remainedin atrial fibrillation. He describes symptoms of palpitation. His recent PT and INR was reviewed with him. In the past the patient did not tolerate flecainide. Assessment 1. Persistent atrial fibrillation/flutter. And in A-fib despite increasing Rythmol flecainide. In the past he did not tolerate flecainide 2. Long-term anticoagulation switch recently to Coumadin for cost issue 3. Obesity with continued weight loss 4. Hypertension controlled 5. Diabetes mellitus 6. Rheumatoid arthritis Plan 1. I advised the patient to continue present medical regimen and I discussed with him treatment option for atrial fibrillation and the natural history of A- fib and the success rate of antiarrhythmic we also touched on ablation. I recommended proceeding with cardioversion. If he continues to have breakthrough arrhythmia we will refer him for an ablation 2. We discuss the duration of anticoagulation. Risk, benefit and alternative reviewed with patient he understood and agreed 3. Patient was counseled regarding losing weight, exercise and dietary modification 4. We will see him back in the office in 3 to 4 months Surgical History Problems History of Cardiac catheterization History of Carpal tunnel surgery History of Complete colonoscopy Procedure Date: 24Mar2018 Current Meds Medication NameInstruction Acetaminophen ER 650 MG Oral Tablet Extended ReleaseTAKE 1 TABLET 4 TIMES DAILY NEEDED. Advair Diskus 250-50 MCG/DOSE AEPBINHALE 1 PUFF EVERY 12 HOURS. Albuterol 90 MCG/ACT AERSUSE DIRECTED. Atorvastatin Calcium 10 MG Oral TabletTAKE 1 TABLET DAILY. Ferrous Gluconate 324 (37.5 Fe) MG Oral TabletTake 1 tablet daily HumaLOG 100 UNIT/ML Subcutaneous Solution CartridgeINJECT SUBCUTANEOUSLY DIRECTED. hydroCHLOROthiazide 25 MG Oral TabletTAKE 1 TABLET DAILY DIRECTED. Hydroxychloroquine Sulfate 200 MG Oral TabletTAKE 1 TABLET TWICE DAILY. Leflunomide 20 MG Oral TabletTAKE 1 TABLET DAILY. Levemir FlexPen SOLNINJECT SUBCUTANEOUSLY WITH EVENING MEAL OR AT BEDTIME DIRECTED. Losartan Potassium 100 MG Oral TabletTAKE ONE TABLET BY MOUTH DAILY metFORMIN HCl - 500 MG Oral TabletTAKE 1 TABLET TWICE DAILY. Omeprazole 40 MG Oral Capsule Delayed ReleaseTAKE 1 CAPSULE Daily Balbir [place] TIME A MONTH DIRECTED. predniSONE 5 MG Oral TabletTAKE 1 TABLET TWICE DAILY. Propafenone HCl - 225 MG Oral TabletTAKE 1 TABLET EVERY 8 HOURS DAILY. Warfarin Sodium 4 MG Oral TabletAS DIRECTED BY [facility] Allergies Medication Penicillins Itching; Recorded By: Lelo Saxena; 08/02/2022 3:05:29 PM Social History Problems Caffeine use (V49.89) (Z78.9) 1 pot of coffee daily,3-4 diet coke Former smoker (V15.82) (Z87.891) Quit smoking 17 years ago 1 ppd No alcohol use No illicit drug use Review of Systems Constitutional: not feeling tired. Cardiovascular: no intermittent leg claudication and as noted in HPI. Respiratory: shortness of breath, but no cough. Gastrointestinal: no change in bowel habits and no blood in stools. Integumentary: no skin rashes. Neurological: dizziness, but no seizures and no frequent falls. All other systems have been reviewed and are negative for complaint. Vitals Vital Signs Recorded: [id number] 11:18AM Heart Rate84, R Radial Tomnxowz336, RUE, Sitting Asggrntta54, RU (more content not included)...NormalUH TouchworksTobacco Screening.on 98-46-7107Mhka risk assessmenta) No falls within the last year- [facility] [employer] DO Work Phone: Tobacco use status CPHSb) NoMP-[facility] [employer] DO Work Phone: Prothrombin Time INRon 48-91-8295ZJV Coag (PPP) [Relative time]3.8 {INR}[employer] Other [facility] [employer] Other Prothrombin Time INRon 70-81-2743YPM Coag (PPP) [Relative time]2.6 {INR}[employer] Other Prothrombin Time [employer] Other Prothrombin Time INRon 14-16-5459BTQ Coag (PPP) [Relative time]3.0 {INR}[employer] Other Prothrombin Time INRNort [employer] Other Office Visit (Cardiology)on 67-43-7230Wnxqoi-up visit Diagnoses/Problems Assessed Essential hypertension (401.9) (I10) Former smoker (V15.82) (Z87.891) Quit smoking 17 years ago 1 ppd Rheumatoid arthritis (714.0) (M06.9) Diabetes mellitus (250.00) (E11.9) Class 2 obesity with body mass index (BMI) of 36.0 to 36.9 in adult (278.00,V85.36) (E66.9,Z68.36) Hyperlipidemia (272.4) (E78.5) Persistent atrial fibrillation (427.31) (I48.19) Atrial flutter (427.32) (I48.92) Orders Class 2 obesity with body mass index (BMI) of 36.0 to 36.9 in adult Healthy Weight Tips; Status:Complete - Retrospective Authorization; Done: 02Aug2022 Some eating tips that can help you lose weight.; Status:Complete - Retrospective Authorization; Done: 02Aug2022 Persistent atrial fibrillation Stop: Propafenone HCl - 150 MG Oral Tablet IO EKG Electrocardiogram- 12 Lead; Status:Complete; Done: 02Aug2022 Start: Propafenone HCl - 225 MG Oral Tablet; TAKE 1 TABLET THREE TIMES A DAY IO EKG Electrocardiogram- 12 Lead; Status:Complete; Done: 02Aug2022 SocHx: Former smoker Tobacco Use Screening; Status:Complete; Done: 02Aug2022 Patient Instructions Please bring all medicines, vitamins, and herbal supplements with you when you come to the office. Prescriptions will not be filled unless you are compliant with your follow up appointments or have a follow up appointment scheduled as per instruction of your physician. Refills should be requested at the time of your visit. Increase Propafenone to 225 mg one tablet 3 times daily EKG done in office today one week. Follow up in 6 months The provider reviewed the following test(s) and result(s) with the patient: ECG Chief Complaint NEREYDA BARKER is being seen for a 2 month follow-up of. History of Present Illness Patient is here for follow-up continue management for persistent atrial fibrillation, anticoagulation, obesity and hypertension. Since last time I saw him his report that he has been in and out of atrial fibrillation. He denies lightheadedness, dizziness or syncope. His report when he is in atrial fibrillation he feels more tired fatigued and short of breath. Today he is in atrial flutter. Assessment 1. Persistent atrial fibrillation/flutter. With increased frequency of breakthrough episode 2. Long-term anticoagulation switch recently to Coumadin for cost issue 3. Obesity with recent 12 pound weight loss 4. Hypertension controlled 5. Diabetes mellitus 6. Rheumatoid arthritis Plan 1. I advised the patient to increase his Rythmol to 225 3 times daily to come back in 1 week for anEKG. I continue to advise to monitor his rhythm with his heart rate monitoring device 2. We discuss the duration of anticoagulation. Risk, benefit and alternative reviewed with patient he understood and agreed 3. Patient was counseled regarding losing weight, exercise and dietary modification 4. We will see him back in the office in 6 month and 5 Surgical History Problems History of Cardiac catheterization History of Carpal tunnel surgery History of Complete colonoscopy Procedure Date: 24Mar2018 Current Meds Medication NameInstruction AirDuo Digihaler 113-14 MCG/ACT Inhalation Aerosol Powder Breath ActivatedUSE 1 TIME A DAY. Albuterol 90 MCG/ACT AERSUSE DIRECTED. Atorvastatin Calcium 10 MG Oral TabletTAKE 1 TABLET DAILY. Ferrous Gluconate 324 (37.5 Fe) MG Oral TabletTake 1 tablet daily HumaLOG 100 UNIT/ML Subcutaneous Solution CartridgeINJECT SUBCUTANEOUSLY DIRECTED. hydroCHLOROthiazide 25 MG Oral TabletTAKE 1 TABLET DAILY DIRECTED. Hydroxychloroquine Sulfate 200 MG Oral TabletTAKE 1 TABLET TWICE DAILY. Leflunomide 20 MG Oral TabletTAKE 1 TABLET DAILY. Levemir FlexPen SOLNAs needed. Losartan Potassium 100 MG Oral TabletTAKE ONE TABLET BY MOUTH DAILY metFORMIN HCl - 500 MG Oral TabletTAKE 1 TABLET TWICE DAILY. NovoLOG FlexPen ReliOn SOPNINJECT SUBCUTANEOUSLY DIRECTED. Omeprazole 40 MG Oral Capsule Delayed ReleaseTAKE 1 CAPSULE Daily Orencia SOLNONE TIME A MONTH DIRECTED. predniSONE 5 MG Oral TabletTAKE 1 TABLET TWICE DAILY. Propafenone HCl - 150 MG Oral TabletTake 1 tablet by mouth 3 times daily Warfarin Sodium 4 MG Oral TabletAS DIRECTED BY [facility] Allergies Medication Penicillins Itching; Recorded By: Lelo Saxena; 08/02/2022 3:05:29 PM Social History Problems Caffeine use (V49.89) (Z78.9) 1 pot of coffee daily,3-4 diet coke Former smoker (V15.82) (Z87.891) Quit smoking 17 years ago 1 ppd No alcohol use No illicit drug use Review of Systems Cardiovascular: palpitations. Respiratory: shortness of breath. Vitals Vital Signs Recorded: 02Aug2022 03:05PM Heart Rate83, Apical Mdqvhlhd191, RUE, Sitting Ubbgpbxxv64, RUE, Sitting Height5 ft 6 in Lzwarc577 lb BMI Zkaejjmtji81.15 kg/m2 BSA Calculated2.1 Tobacco Usea) Yes PHQ-2 #1. Over the last 2 weeks have you felt down, depressed or hopeless? (If yes, answer PHQ-9 below)No PHQ-2 #2. Over th (more content not included)...NormalUH TouchworksTobacco Screening.on 43-01-2543Lahmw depression screening assessmentNoShriners Hospitals for Children [employer] DO Work Phone: Fall risk assessmenta) No falls within the last year [facility] [employer] DO Work Phone: Tobacco use status CPHSa) YesShriners [facility] Children [employer] 250 DO Work Phone: Alanine aminotransferase [Enzymatic activity/volume] in Serum or PlasmaOrdered By: Analilia Vera on 14-44-6209YBT [Catalytic activity/Vol]21 U/L7-52[facility] HospitalAlbumin [Mass/volume] in Serum or Plasma by Bromocresol green (BCG) dye binding methoOrdered By: Analilia Vera on 52-58-6591Caglmww BCG dye [Mass/Vol]4.0 g/dL3.5-5.7FUC HealthAlkaline phosphatase [Enzymatic activity/volume] in Serum or PlasmaOrdered By: Analilia Vera on 03-03-1237MHO [Catalytic activity/Vol]47 U/A22-505YachohgywPremier Health Miami Valley HospitalAspartate aminotransferase [Enzymatic activity/volume] in Serum or PlasmaOrdered By: Analilia Vera on 90-09-7446FLS [Catalytic activity/Vol]20 U/Y05-12SwhutjsppPremier Health Miami Valley HospitalBasophils Auto (Bld) [#/Vol]Ordered By: Analilia Vear on 47-37-9658Eguhptacu (Bld) [#/Vol]0.0 10*3/uL0.0-0.2FUC HealthBasophils/100 WBC Auto (Bld)Ordered By: Analilia Vera on 79-05-5672Exixreglx/100 WBC (Bld)1.1 %. [facility] HospitalBilirubin.total [Mass/volume] in Serum or PlasmaOrdered By: Analilia Vera on 58-26-8748Qpjnpwmrt [Mass/Vol]0.5 mg/dL 0.3-1.0[facility] HospitalCalcium [Mass/volume] in Serum or Plasma Ordered By: Analilia Vera on 77-34-7161Dcdkpqw [Mass/Vol]9.2 mg/dL8.6-10.3 [facility] HospitalCarbon dioxide, total [Moles/volume] in Serum or PlasmaOrdered By: Analilia Vera on 16-85-0165RI9 [Moles/Vol]24.1 mmol/L 21.0-31.0[facility] HospitalChloride [Moles/volume] in Serum or PlasmaOrdered By: Analilia Vera on 13-65-7617Easnawph [Moles/Vol]104 mmol/L 98-107[facility] HospitalCreatinine [Mass/volume] in Serum or PlasmaOrdered By: Analilia Vera on 76-68-1910Ixsqwewvqr [Mass/Vol]0.95 mg/dL 0.70-1.30[facility] HospitalEosinophils Auto (Bld) [#/Vol]Ordered By: Analilia Vera on 88-25-1014Jhxnvcadnhy (Bld) [#/Vol]0.0 10*3/uL0.0-0.45 [facility] HospitalEosinophils/100 WBC Auto (Bld)Ordered By: Analilia Vera on 54-62-5502Cyqukpgojhc/100 WBC (Bld)0.4 %.[facility] HospitalErythrocyte distribution width Auto (RBC) [Ratio]Ordered By: Analilia Vera on 68-23-0569Pzlikvpdumd distribution width (RBC) [Ratio]13.2 % 12.0-14.8[facility] HospitalErythrocyte sedimentation rate by Photometric methodOrdered By: Analilia Vera on 06-95-7382QTK Photometric method (Bld) [Velocity]14 mm/hr0-19[facility] HospitalGlobulin Calc (S) [Mass/Vol]Ordered By: Analilia Vera on 70-53-0692Bxfkmawo (S) [Mass/Vol]3.0 g/dLPremier Health Miami Valley HospitalGlucose [Mass/volume] in Serum or Plasma Ordered By: Analilia Vera on 03-79-5440Ppejssd [Mass/Vol]179 mg/oS61-199 [facility] HospitalComment on above:ADA recommended reference rangeRandom Glucose Reference Range is dependent on time and content of last meal. Glucose of more than 200 mg/dL in a nonstressed, ambulatory subject supports the diagnosisof Diabetes Mellitus.Hematocrit Auto (Bld) [Volume fraction]Ordered By: Analilia Vera on 10-75-0206Opzppkggrm (Bld) [Volume fraction]37.3 %38.8-50.0[facility] HospitalHemoglobin [Mass/volume] in BloodOrdered By: Analilia Vera on 19-69-3963Mmwfmtlqim (Bld) [Mass/Vol]12.7 g/dL13.0-17.0[facility] HospitalLeukocytes [#/volume] corrected for nucleated erythrocytes in Blood by Automated coun Ordered By: Analilia Vera on 61-23-4741FSN corrected for nucl RBC Auto (Bld) [#/Vol]3.9 10*3/uL4.1-10.5FUC HealthLymphocytes Auto (Bld) [#/Vol]Ordered By: Analilia Vera on 87-33-1739Pzrsqvlgjjl (Bld) [#/Vol] 0.4 10*3/uL1.00-4.8[facility] HospitalLymphocytes/100 WBC Auto (Bld)Ordered By: Analilia Vera on 81-65-1801Baizxamxnig/100 WBC (Bld)9.7 %. [facility]H Auto (RBC) [Entitic mass]Ordered By: Analilia Vera on 74-70-3432GVS (RBC) [Entitic mass]29.8 pg27.5-35.2FUC HealthMCHC Auto (RBC) [Mass/Vol]Ordered By: Analilia Vera on 64-55-1786CTQC (RBC) [Mass/Vol]34.1 g/dL32.5-35.6FUC HealthMCV Auto (RBC) [Entitic vol]Ordered By: Analilia Vera on 30-10-5150SEB (RBC) [Entitic vol]87.4 fL83.5-101[facility] HospitalMonocytes Auto (Bld) [#/Vol]Ordered By: Analilia Vera on 38-75-3963Ecssioajx (Bld) [#/Vol]0.2 10*3/uL0.0-0.8[facility] HospitalMonocytes/100 WBC Auto (Bld)Ordered By: nAalilia Vera on 60-61-1666Mhvrtifea/100 WBC (Bld)5.9 %. [facility] HospitalNeutrophils Auto (Bld) [#/Vol]Ordered By: Analilia Vera on 22-39-2819Ocehuobjnpa (Bld) [#/Vol]3.2 10*3/uL1.8-7.7FUC HealthNeutrophils/100 WBC Auto (Bld)Ordered By: Analilia Vera on 93-85-7633Vdhpuvqofrz/100 WBC (Bld)82.9 %.[facility] HospitalNo Panel InformationOrdered By: Analilia Vera on 07-49-1633Dnymnjmdm GFR (CKD-EPI)> 60.0 mL/MinPremier Health Miami Valley HospitalPharmacy Creatinine Clearance (ChemN/[facility] CenterNucleated erythrocytes [Presence] in Blood by Automated countOrdered By: Analilia Vera on 07-27-2022 Nucleated RBC Auto Ql (Bld)0.1 /100{WBC}0-0.5[facility] Platelet mean volume Auto (Bld) [Entitic vol]Ordered By: Analilia Vera on 44-73-1135Askwbwus mean volume (Bld) [Entitic vol]7.9 fL6.6-10.1FUC HealthPlatelets Auto (Bld) [#/Vol]Ordered By: Analilia Vera on 67-86-4970Rqqeqcybf (Bld) [#/Vol]231 10*3/uX516-929EssswmhxxPremier Health Miami Valley HospitalPotassium [Moles/volume] in Serum or PlasmaOrdered By: Analilia Vera on 66-77-6901Rtlerwssa [Moles/Vol]4.4 mmol/L3.5-5.1FUC HealthProtein [Mass/volume] in Serum or PlasmaOrdered By: Analilia Vera on 70-23-0409Xzkgmgw [Mass/Vol]7.0 g/dL6.4-8.9[facility] HospitalRBC Auto (Bld) [#/Vol]Ordered By: Analilia Vera on 67-26-5844UIT (Bld) [#/Vol]4.27 10*6/uL3.90-5.60[facility] Centererum or plasma albumin/globulin mass ratioOrdered By: Analilia Vera on 07-27-2022 Albumin/Globulin [Mass ratio]1.3 {ratio}[facility] Centererum or plasma anion gap determinationOrdered By: Analilia Vera on 21-44-0751Ixkow gap [Moles/Vol]12.3 mmol/L6.0-15.0[facility] Medical Centerodium [Moles/volume] in Serum or PlasmaOrdered By: Analilia Vera on 82-91-2646Zysmfx [Moles/Vol]136 mmol/T965-735MtxtvlkwtPremier Health Miami Valley HospitalUrea nitrogen [Mass/volume] in Serum or PlasmaOrdered By: Analilia Vera on 51-60-5695Yotd nitrogen [Mass/Vol]11 mg/dL7Prem[facility] HospitalWBC Auto (Bld) [#/Vol]Ordered By: Analilia Vera on 41-29-9475GZL (Bld) [#/Vol]3.9 10*3/uL 4.1-10.5FUC HealthProthrombin Time INRon 13-35-4800XXG Coag (PPP) [Relative time]2.5 {INR}[employer] Other Prothrombin Time [facility] [employer] Other Prothrombin Time INRon 56-15-0663WBD Coag (PPP) [Relative time]2.0 {INR}[employer] Other Prothrombin Time [facility] [employer] Other Prothrombin Time INRon 35-72-3189XTA Coag (PPP) [Relative time]1.8 {INR}[employer] Other Prothrombin Time [employer] Other Glucose Glucometer (BldC) [Mass/Vol]Ordered By: Eric Kemp on 42-65-9430Isuwdoh [Mass/Vol]143 mg/dLPremier Health Miami Valley Hospital Comment on above:Random Glucose Reference Range is dependent on time and content of last meal. Glucose of more than 200 mg/dL in a nonstressed, ambulatory subject supports the diagnosis of Diabetes Mellitus.Laboratory - Coagulation Ordered By: Gatito Harper on 37-25-9611MX Coag (PPP) [Time]13.7 s9.0-12.9[facility] HospitalNo Panel InformationOrdered By: Eric Kemp on 06-09-2022 Bedside Glucose CommentGlu2: cleaned [facility] Platelet poor plasma international normalized ratio (INR) by coagulation assay (relatOrdered By: Gatito Harper on 62-26-7435OOW Coag (PPP) [Relative time]1.2 {INR}[facility] HospitalComment on above:INR Therapeutic Range A) Pre- and Peroperative OAT started two weeks before surgery. NOT HIP SURGERY: 1.5 - 2.5 HIP SURGERY: 2 - 3B) Primary and secondary prevention of venous THROMBOSIS: 2 - 3C) Active venous thrombosis, pulmonary embolismand prevention of recurrent venous thrombosis: 2 - 3D) Prevention of arterial thromboembolismincluding patients with mechanical heart valves: 3 - 4.5 Prothrombin Time INRon 44-83-8833LYB Coag (PPP) [Relative time]2.8 {INR}[facility] [employer] Other Prothrombin Time INRNortKaleida Health [employer] Other Basophils Auto (Bld) [#/Vol]Ordered By: Eric Kemp on 83-56-7762Zkoebfgiq (Bld) [#/Vol]0.1 10*3/uL0.0-0.2FUC HealthBasophils/100 WBC Auto (Bld)Ordered By: Eric Kemp on 06-02-2022 Basophils/100 WBC (Bld)2.6 %.[facility] HospitalCalcium [Mass/volume] in Serum or PlasmaOrdered By: Eric Kemp on 01-40-2098Czgfwgy [Mass/Vol]9.4 mg/dL8.6-10.3FUC HealthCarbon dioxide, total [Moles/volume] in Serum or PlasmaOrdered By: Eric Kemp on 36-18-9342RP3 [Moles/Vol]26.4 mmol/L21.0-31.0[facility] HospitalChloride [Moles/volume] in Serum or PlasmaOrdered By: Eric Kemp on 22-69-4252Nkkgpqkk [Moles/Vol]105 mmol/U93-496BdbjiyshaPremier Health Miami Valley HospitalCreatinine [Mass/volume] in Serum or PlasmaOrdered By: Eric Kemp on 81-19-9598Wtpvvcqcjo [Mass/Vol]0.93 mg/dL0.70-1.30[facility] HospitalEosinophils Auto (Bld) [#/Vol]Ordered By: Eric Kemp on 57-63-6250Svcjwvdxxro (Bld) [#/Vol]0.3 10*3/uL0.0-0.45[facility] HospitalEosinophils/100 WBC Auto (Bld) Ordered By: Eric Kemp on 80-73-5552Zwbfbyygxxu/100 WBC (Bld)10.8 %.[facility] HospitalErythrocyte distribution width Auto (RBC) [Ratio]Ordered By: Eric Kemp on 89-81-3562Auaoesowqwg distribution width (RBC) [Ratio]13.9 % 12.0-14.8[facility] HospitalGlucose [Mass/volume] in Serum or PlasmaOrdered By: Eric Kemp on 78-17-6762Ttjhuyn [Mass/Vol]105 mg/mW76-263 [facility] HospitalComment on above:ADA recommended reference rangeRandom Glucose Reference Range is dependent on time and content of last meal. Glucose of more than 200 mg/dL in a nonstressed, ambulatory subject supports the diagnosisof Diabetes Mellitus.Hematocrit Auto (Bld) [Volume fraction]Ordered By: Eric Kemp on 80-65-0945Htpcctwaol (Bld) [Volume fraction] 38.1 %38.8-50.0[facility] HospitalHemoglobin [Mass/volume] in BloodOrdered By: Eric Kemp on 50-26-9138Ycvxlrrzja (Bld) [Mass/Vol]13.2 g/dL 13.0-17.0[facility] HospitalLeukocytes [#/volume] corrected for nucleated erythrocytes in Blood by Automated counOrdered By: Eric Kemp on 54-88-9983WJF corrected for nucl RBC Auto (Bld) [#/Vol]3.1 10*3/uL4.1-10.5 [facility] HospitalLymphocytes Auto (Bld) [#/Vol]Ordered By: Eric Kemp on 68-65-7022Dcrxgaaezuc (Bld) [#/Vol]1.0 10*3/uL1.00-4.8[facility] HospitalLymphocytes/100 WBC Auto (Bld)Ordered By: Eric Kemp on 47-42-9501Tlskmtatcus/100 WBC (Bld)32.1 %.[facility] HospitalMCH Auto (RBC) [Entitic mass]Ordered By: Eric Kemp on 83-41-0909WVF (RBC) [Entitic mass]30.5 pg27.5-35.2FUC HealthMCHC Auto (RBC) [Mass/Vol] Ordered By: Eric Kemp on 66-20-8379NHLS (RBC) [Mass/Vol]34.7 g/dL32.5-35.6 [facility] HospitalMCV Auto (RBC) [Entitic vol]Ordered By: Eric Kemp on 78-84-2707REC (RBC) [Entitic vol]88.0 fL83.5-101Prem[facility] HospitalMonocytes Auto (Bld) [#/Vol]Ordered By: Eric Kemp on 06-02-2022 Monocytes (Bld) [#/Vol]0.4 10*3/uL0.0-0.8[facility] Monocytes/100 WBC Auto (Bld)Ordered By: Eric Kemp on 63-43-6955Lxmrwusut/100 WBC (Bld)13.3 %.[facility] HospitalNeutrophils Auto (Bld) [#/Vol] Ordered By: Eric Kemp on 38-86-2114Osgwkebkvep (Bld) [#/Vol]1.3 10*3/uL1.8-7.7 [facility] HospitalNeutrophils/100 WBC Auto (Bld)Ordered By: Eric Kemp on 49-17-2469Contedvsnky/100 WBC (Bld)41.2 %.[facility] HospitalNo Panel InformationOrdered By: Eric Kemp on 92-62-4237Ksbwxvpav GFR (CKD-EPI)> 60.0 mL/MinPremier Health Miami Valley HospitalPharmacy Creatinine Clearance (ChemN/[facility] CenterNucleated erythrocytes [Presence] in Blood by Automated countOrdered By: Eric Kemp on 06-02-2022 Nucleated RBC Auto Ql (Bld)0.2 /100{WBC}0-0.5[facility] Platelet mean volume Auto (Bld) [Entitic vol]Ordered By: Eric Kemp on 92-74-0169Fqheyxbk mean volume (Bld) [Entitic vol]7.8 fL6.6-10.1FUC HealthPlatelets Auto (Bld) [#/Vol]Ordered By: Eric Kemp on 29-74-4129Iugfduejf (Bld) [#/Vol]174 10*3/eR708-836KkjjildgdPremier Health Miami Valley HospitalPotassium [Moles/volume] in Serum or PlasmaOrdered By: Eric Kemp on 93-13-1707Aiagwspje [Moles/Vol]4.1 mmol/L3.5-5.1FUC HealthRBC Auto (Bld) [#/Vol]Ordered By: Eric Kemp on 27-38-5368NPE (Bld) [#/Vol]4.33 10*6/uL3.90-5.60[facility] Medical Centererum or plasma anion gap determinationOrdered By: Eric Kemp on 42-26-5380Bmnnx gap [Moles/Vol] 10.7 mmol/L6.0-15.0[facility] Medical Centerodium [Moles/volume] in Serum or PlasmaOrdered By: Eric Kemp on 43-32-5480Hdgiib [Moles/Vol]138 mmol/L 136-145[facility] HospitalUrea nitrogen [Mass/volume] in Serum or PlasmaOrdered By: Eric Kemp on 53-55-7327Ywxs nitrogen [Mass/Vol]10 mg/dL7-25 [facility] HospitalWBC Auto (Bld) [#/Vol]Ordered By: Eric Kemp on 66-03-4173NGO (Bld) [#/Vol]3.1 10*3/uL4.1-10.5[facility] Office Visit (Cardiology)on 95-22-3632Hrhejf-up visitDiagnoses/Problems Assessed Persistent atrial fibrillation (427.31) (I48.19) Essential hypertension (401.9) (I10) Hyperlipidemia (272.4) (E78.5) Diabetes mellitus (250.00) (E11.9) Class 2 obesity with body mass index (BMI) of 38.0 to 38.9 in adult (278.00,V85.38) (E66.9,Z68.38) Former smoker (V15.82) (Z87.891) Quit smoking 17 years ago 1 ppd Rheumatoid arthritis (714.0) (M06.9) Preop cardiovascular exam (V72.81) (Z01.810) Orders Class 2 obesity with body mass index (BMI) of 38.0 to 38.9 in adult Healthy Weight Tips; Status:Complete - Retrospective Authorization; Done: 25May2022 Some eating tips that can help you lose weight.; Status:Complete - Retrospective Authorization; Done: 25May2022 Essential hypertension Renew: Losartan Potassium 100 MG Oral Tablet; TAKE 1 TABLET DAILY Hyperlipidemia Renew: Atorvastatin Calcium 10 MG Oral Tablet; TAKE 1 TABLET DAILY Persistent atrial fibrillation Start: Flecainide Acetate 50 MG Oral Tablet; TAKE 1 TABLET BY MOUTH TWICE DAILY IO EKG Electrocardiogram- 12 Lead; Status:Complete; Done: 25May2022 SocHx: Former smoker Tobacco Use Screening; Status:Complete; Done: 25May2022 Patient Instructions Please bring all medicines, vitamins, and herbal supplements with you when you come to the office. Prescriptions will not be filled unless you are compliant with your follow up appointments or have a follow up appointment scheduled as per instruction of your physician. Refills should be requested at the time of your visit. Patient can proceed with surgery from a cardiac standpoint. Can hold Coumadin 4 days prior Start Flecainide 50 mg one tablet two times daily Follow up in 2 months with EKG Cardioversion The provider reviewed the following test(s) and result(s) with the patient: ECG History of Present Illness Patient here for follow-up continue management for persistent atrial fibrillation, long-term anticoagulation, hypertension and for preoperative risk assessment for carpal tunnel surgery. Since last time I saw him he reports he is feeling reasonably well. He denies complaint of chest pain, palpitation, lightheadedness, dizziness or syncope. He is compliant with his medication. He was referred for a stress test by his family physician which was negative. His previous echo showed normal LV systolic function. Patient described functional class I. He was able to walk 1 to 2 miles a day and climb 2flights of stairs. He is taking care of his ill . Assessment 1. Persistent atrial fibrillation. Current report has been mainly in atrial fibrillation recently. Based on his electronic device monitor 2. Long-term anticoagulation switch recently to Coumadin for cost issue 3. Obesity with recent weight gain 4. Hypertension controlled 5. Diabetes mellitus 6. Patient requesting preoperative risk assessment for carpal tunnel surgery 7. Rheumatoid arthritis Plan 1. Reviewed with the patient results of his recent stress test. There is no functional class I, no cardiac symptoms and negative stress test and low risk surgery. Patient can proceed with surgery with acceptable surgical risk cardiac ruiz. He can hold his Coumadin for 4 days prior to surgery 2. We discuss the duration of anticoagulation. Risk, benefit and alternative reviewed with patient he understood and agreed 3. Patient was counseled regarding losing weight, exercise and dietary modification 4. Long-term treatment for atrial fibrillation discussed with him at great length. We discussed rhythm control strategy versus heart rate control strategy. Following detailed discussion the patient would like to continue with rhythm control strategy. I suggested initiating treatment with ifilkuwake12 mg twice daily. After he has his surgery we will see him back in 2 months if remain in atrial fibrillation we will proceed with cardioversion Surgical History Problems History of Cardiac catheterization History of Complete colonoscopy Procedure Date: 24Mar2018 Current Meds Medication NameInstruction AirDuo Digihaler 113-14 MCG/ACT Inhalation Aerosol Powder Breath ActivatedUSE 1 TIME A DAY. Albuterol 90 MCG/ACT AERSUSE DIRECTED. Atorvastatin Calcium 10 MG Oral TabletTAKE 1 TABLET DAILY. Ferrous Gluconate 324 (37.5 Fe) MG Oral TabletTake 1 tablet daily hydroCHLOROthiazide 25 MG Oral TabletTAKE 1 TABLET DAILY DIRECTED. Hydroxychloroquine Sulfate 200 MG Oral TabletTAKE 1 TABLET TWICE DAILY. Leflunomide 20 MG Oral TabletTAKE 1 TABLET DAILY. Levemir FlexPen SOLNAs needed. Losartan Potassium 100 MG Oral TabletTAKE 1 TABLET DAILY. metFORMIN HCl - 500 MG Oral TabletTAKE 1 TABLET TWICE DAILY. NovoLOG FlexPen ReliOn SOPNINJECT SUBCUTANEOUSLY DIRECTED. Omeprazole 40 MG Oral Capsule Delayed ReleaseTAKE 1 CAPSULE Daily Orencia SOLNONE TIME A MONTH DIRECTED. predniSONE 5 MG Oral TabletTAKE 1 TABLET TWICE DAILY. Warfarin Sodium 4 MG Oral TabletAS DIRECTED BY [facility] Allergies Medication No Known (more content not included)...NormalUH TouchworksTobacco Screening.on 35-79-3608Uhzxx depression screening assessmentNoSh[facility]ers [facility] [address] DO Work Phone: Fall risk assessmenta) No falls within the last year [facility] [address] DO Work Phone: Tobacco use status CPHSb) NoMProv[facility] 250 DO Work Phone: Prothrombin Time INRon 06-78-2220CAY Coag (PPP) [Relative time]2.4 {INR}[employer] Other Prothrombin Time [facility] [employer] Other Prothrombin Time INRon 27-78-1767LBR Coag (PPP) [Relative time]2.2 {INR}[employer] Other Prothrombin Time [facility] [employer] Other Albumin [Mass/volume] in Body fluidOrdered By: Analilia Vera on 24-95-2467Qjmbaru (Body fld) [Mass/Vol]3.8 g/dL3.2-5.5FUC HealthAlkaline phosphatase [Enzymatic activity/volume] in Serum or PlasmaOrdered By: Analilia Vera on 81-25-2802WTI [Catalytic activity/Vol]42 U/D11-32ZxbbrxqnaPremier Health Miami Valley HospitalAspartate aminotransferase [Enzymatic activity/volume] in Serum or PlasmaOrdered By: Analilia Vera on 36-65-0417PRC [Catalytic activity/Vol]26 U/I99-19XkpprzjxbPremier Health Miami Valley HospitalBasophils Auto (Bld) [#/Vol]Ordered By: Analilia Vera on 88-87-3512Kcfgctrcc (Bld) [#/Vol]0.1 10*3/uL0.0-0.2FUC HealthBasophils/100 WBC Auto (Bld)Ordered By: Analilia Vera on 34-70-6113Iodbniudi/100 WBC (Bld)0.8 %. [facility] HospitalBilirubin.total [Mass/volume] in Serum or PlasmaOrdered By: Analilia Vera on 72-40-7918Kyqdhlkeg [Mass/Vol]0.4 mg/dL 0.3-1.2FUC HealthCalcium [Mass/volume] in Serum or Plasma Ordered By: Analilia Vera on 44-57-8927Kfrcnbc [Mass/Vol]9.7 mg/dL8.2-10.2 [facility] HospitalCarbon dioxide, total [Moles/volume] in Serum or PlasmaOrdered By: Analilia Vera on 95-91-3395SW7 [Moles/Vol]21.9 mmol/L 22.0-30.0[facility] HospitalChloride [Moles/volume] in Serum or PlasmaOrdered By: Analilia Vera on 17-53-4589Ofjkkrpa [Moles/Vol]101 mmol/L 95-114Prem[facility] HospitalCreatinine and Glomerular filtration rate.predicted panel (S/P/Bld)Ordered By: Analilia Vera on 84-58-8715Balcyrdmmn [Mass/Vol]0.94 mg/dL0.64-1.27[facility] HospitalEosinophils Auto (Bld) [#/Vol]Ordered By: Analilia Vera on 14-38-4372Uqaesxziatm (Bld) [#/Vol] 0.0 10*3/uL0.0-0.45[facility] HospitalEosinophils/100 WBC Auto (Bld)Ordered By: Analilia Vera on 26-33-2969Dilpqkzarpz/100 WBC (Bld)0.2 %. [facility] HospitalErythrocyte distribution width Auto (RBC) [Ratio]Ordered By: Analilia Vera on 09-21-6763Evbhqldrivj distribution width (RBC) [Ratio]13.1 %12.0-14.8[facility] HospitalErythrocyte sedimentation rate by Photometric methodOrdered By: Analilia Vera on 03-30-2022 ESR Photometric method (Bld) [Velocity]8 mm/hr0-19[facility] HospitalEstimated glomerular filtration rate (GFR) non- AmericanOrdered By: Analilia Vera on 67-23-1055NQT/1.73 sq M.predicted among non-blacks MDRD (S/P/Bld) [Vol rate/Area]> 60 mL/MinPremier Health Miami Valley HospitalGlobulin Calc (S) [Mass/Vol]Ordered By: Analilia Vera on 88-19-1044Rpudkxhn (S) [Mass/Vol]2.7 g/dLPremier Health Miami Valley HospitalGlucose [Mass/volume] in Serum or PlasmaOrdered By: Analilia Vera on 54-34-1566Masdrdg [Mass/Vol]242 mg/kT48-658ImyzbxgrkPremier Health Miami Valley HospitalComment on above:ADA recommended reference rangeRandom Glucose Reference Range is dependent on time and content of last meal. Glucose of more than 200 mg/dL in a nonstressed, ambulatory subject supports the diagnosisof Diabetes Mellitus.Hematocrit Auto (Bld) [Volume fraction]Ordered By: Analilia Vera on 82-31-6737Ggotaayjld (Bld) [Volume fraction]39.6 %38.8-50.0[facility] HospitalHemoglobin [Mass/volume] in BloodOrdered By: Analilia Vera on 05-19-2173Llgjbyiscu (Bld) [Mass/Vol]13.2 g/dL13.0-17.0[facility] HospitalLeukocytes [#/volume] corrected for nucleated erythrocytes in Blood by Automated coun Ordered By: Analilia Vera on 92-66-8707VVB corrected for nucl RBC Auto (Bld) [#/Vol]7.3 10*3/uL4.1-10.5FUC HealthLymphocytes Auto (Bld) [#/Vol]Ordered By: Analilia Vera on 53-95-1886Zmzbduzeyjc (Bld) [#/Vol] 0.9 10*3/uL1.00-4.8[facility] HospitalLymphocytes/100 WBC Auto (Bld)Ordered By: Analilia Vera on 64-73-8256Hxfnpxkhdeh/100 WBC (Bld)12.1 %. [facility] Auto (RBC) [Entitic mass]Ordered By: Analilia Vera on 53-47-5257JVQ (RBC) [Entitic mass]29.5 pg27.5-35.2FBerger Hospital Auto (RBC) [Mass/Vol]Ordered By: Analilia Vera on 79-16-1771OXPF (RBC) [Mass/Vol]33.4 g/dL32.5-35.6FUC HealthMCV Auto (RBC) [Entitic vol]Ordered By: Analilia Vera on 36-91-3800BMA (RBC) [Entitic vol]88.3 fL83.5-101[facility] HospitalMonocytes Auto (Bld) [#/Vol]Ordered By: Analilia Vera on 17-16-8572Geucsuphp (Bld) [#/Vol]0.5 10*3/uL0.0-0.8[facility] HospitalMonocytes/100 WBC Auto (Bld)Ordered By: Analilia Vera on 84-81-4922Wvukdliqb/100 WBC (Bld)7.3 %. [facility] HospitalNeutrophils Auto (Bld) [#/Vol]Ordered By: Analilia Vera on 17-65-1821Xfnkictqjuk (Bld) [#/Vol]5.8 10*3/uL1.8-7.7FUC HealthNeutrophils/100 WBC Auto (Bld)Ordered By: Analilia Vera on 70-34-8856Jxgoatbczjm/100 WBC (Bld)79.6 %.[facility] HospitalNo Panel InformationOrdered By: Analilia Vera on 03-02-1848Xbjselwov GFR ()> 60 mL/MinPremier Health Miami Valley HospitalComment on above:GFR estimated reference range: According to KDOQI guidelines, <60 ml/min/1.73m2 is sufficient todiagnose a patient with chronic kidney disease.Pharmacy Creatinine Clearance (ChemN/[facility] Medical CenterNucleated erythrocytes [Presence] in Blood by Automated countOrdered By: Analilia Vera on 03-30-2022 Nucleated RBC Auto Ql (Bld)0.0 /100{WBC}0-0.5[facility] Platelet mean volume Auto (Bld) [Entitic vol]Ordered By: Analilia Vera on 88-98-5276Vczrtvqz mean volume (Bld) [Entitic vol]8.5 fL6.6-10.1FUC HealthPlatelets Auto (Bld) [#/Vol]Ordered By: Analilia Vera on 60-73-3897Bqrbtwuco (Bld) [#/Vol]227 10*3/yQ704-789LdnyzgcwnPremier Health Miami Valley HospitalPotassium [Moles/volume] in Serum or PlasmaOrdered By: Analilia Vera on 48-46-2371Exkcebwei [Moles/Vol]4.0 mmol/L3.5-5.1FUC HealthProtein [Mass/volume] in Serum or PlasmaOrdered By: Analilia Vera on 00-89-8594Fkkphzn [Mass/Vol]6.5 g/dL6.1-7.9[facility] HospitalRBC Auto (Bld) [#/Vol]Ordered By: Analilia Vera on 88-00-1821EGH (Bld) [#/Vol]4.48 10*6/uL3.90-5.60[facility] Medical Centererum or plasma alanine aminotransferase measurement without P-5'-P (enzymatic activiOrdered By: Analilia Vera on 80-22-7398ZWV No additional P-5'-P [Catalytic activity/Vol]29 U/L 10-60[facility] Medical Centererum or plasma albumin/globulin mass ratioOrdered By: Analilia Vera on 45-91-9826Rryouba/Globulin [Mass ratio]1.4 {ratio}[facility] Medical Centererum or plasma anion gap determination Ordered By: Analilia Vera on 97-82-1116Dxarf gap [Moles/Vol]14.1 mmol/L6.0-15.0 [facility] Medical Centerodium [Moles/volume] in Serum or PlasmaOrdered By: Analilia Vera on 19-08-9557Kbcrxn [Moles/Vol]133 mmol/A526-182ScbxmqficPremier Health Miami Valley HospitalUrea nitrogen [Mass/volume] in Serum or PlasmaOrdered By: Analilia Vera on 30-95-9802Ybzm nitrogen [Mass/Vol]10 mg/dL9-23[facility] HospitalWBC Auto (Bld) [#/Vol]Ordered By: Analilia Vera on 12-34-4341GNG (Bld) [#/Vol]7.3 10*3/uL4.1-10.5[facility] Prothrombin Time INRon 77-27-1211GKW Coag (PPP) [Relative time]2.5 {INR}[employer] Other Prothrombin Time [employer] [employer] Other XR Chest 2 Views*on 74-24-0028HR Chest 2 Views* HISTORY: Midsternal chest pain and shortness of breath for years. History of smoking. TECHNIQUE: Frontal and lateral views of the chest. COMPARISON: Chest radiograph 07/22/2021 FINDINGS: Cardiomediastinal silhouette is within normal limits. No pneumothorax, pleural effusion, or consolidation. No pulmonary nodule or mass identified although these findings are best assessed with CT of the chest. No acute osseous abnormality. IMPRESSION: No radiographic evidence of acute intrathoracic process. Report reported and signed by Richard Willis on 03/08/2022 1136NormalNoWilson Memorial HospitalProthrombin Time INRon 78-50-4666JUO Coag (PPP) [Relative time]2.3 {INR}[employer] Other Prothrombin Time [facility] [employer] Other Albumin [Mass/volume] in Serum or PlasmaOrdered By: Maximiliano Belle on 99-60-0721Aggmqin [Mass/Vol]3.6 g/dL3.2-5.5FUC HealthBasophils Auto (Bld) [#/Vol]Ordered By: Maximiliano Belle on 85-96-9390Jtmrotddy (Bld) [#/Vol]0.0 10*3/uL0.0-0.2FUC HealthBasophils/100 WBC Auto (Bld)Ordered By: Maximiliano Belle on 01-19-2022 Basophils/100 WBC (Bld)1.4 %.[facility] HospitalCreatinine and Glomerular filtration rate.predicted panel (S/P/Bld)Ordered By: Maximiliano Belle on 00-83-0754Mhtuhjiagu [Mass/Vol]0.98 mg/dL0.64-1.27[facility] HospitalEosinophils Auto (Bld) [#/Vol]Ordered By: Maximiliano Belle on 01-19-2022 Eosinophils (Bld) [#/Vol]0.3 10*3/uL0.0-0.45[facility] Eosinophils/100 WBC Auto (Bld)Ordered By: Maximiliano Belle on 01-19-2022 Eosinophils/100 WBC (Bld)7.7 %.[facility] HospitalErythrocyte distribution width Auto (RBC) [Ratio]Ordered By: Maximiliano Belle on 01-19-2022 Erythrocyte distribution width (RBC) [Ratio]13.7 %12.0-14.8[facility] HospitalErythrocyte sedimentation rate by Photometric methodOrdered By: Maximiliano Belle on 53-08-0486CKE Photometric method (Bld) [Velocity]6 mm/hr0-19 [facility] HospitalEstimated glomerular filtration rate (GFR) non- AmericanOrdered By: Maximiliano Belle on 90-81-3749QLP/1.73 sq M.predicted among non-blacks MDRD (S/P/Bld) [Vol rate/Area]> 60 mL/MinPremier Health Miami Valley HospitalGlobulin Calc (S) [Mass/Vol]Ordered By: Maximiliano Belle on 29-86-0132Yyynatpn (S) [Mass/Vol]2.4 g/dLPremier Health Miami Valley Hospital Hematocrit Auto (Bld) [Volume fraction]Ordered By: Maximiliano Belle on 01-19-2022 Hematocrit (Bld) [Volume fraction]40.9 %38.8-50.0[facility] HospitalHemoglobin [Mass/volume] in BloodOrdered By: Maximiliano Belle on 01-19-2022 Hemoglobin (Bld) [Mass/Vol]13.4 g/dL13.0-17.0[facility] Lymphocytes Auto (Bld) [#/Vol]Ordered By: Maximiliano Belle on 01-19-2022 Lymphocytes (Bld) [#/Vol]0.9 10*3/uL1.00-4.8[facility] Lymphocytes/100 WBC Auto (Bld)Ordered By: Maximiliano Belle on 01-19-2022 Lymphocytes/100 WBC (Bld)28.2 %.[facility] HospitalH Auto (RBC) [Entitic mass]Ordered By: Maximiliano Belle on 54-79-9590KDD (RBC) [Entitic mass] 30.0 pg27.5-35.2FUC HealthMCHC Auto (RBC) [Mass/Vol] Ordered By: Maximiliano Belle on 81-72-8967GTCQ (RBC) [Mass/Vol]32.8 g/dL32.5-35.6 [facility] HospitalMCV Auto (RBC) [Entitic vol]Ordered By: Maximiliano Belle on 69-47-0352KLM (RBC) [Entitic vol]91.4 fL83.5-101[facility] HospitalMonocytes Auto (Bld) [#/Vol]Ordered By: Maximiliano Belle on 62-14-0200Axryfymlf (Bld) [#/Vol]0.4 10*3/uL0.0-0.8[facility] HospitalMonocytes/100 WBC Auto (Bld)Ordered By: Maximiliano Belle on 01-19-2022 Monocytes/100 WBC (Bld)12.8 %.[facility] HospitalNeutrophils Auto (Bld) [#/Vol]Ordered By: Maximiliano Belle on 34-76-1142Bpdhodcogin (Bld) [#/Vol] 1.7 10*3/uL1.8-7.7FUC HealthNeutrophils/100 WBC Auto (Bld)Ordered By: Maximiliano Belle on 04-11-0611Xlwlmqwescf/100 WBC (Bld)49.9 %. [facility] HospitalNo Panel InformationOrdered By: Maximiliano Belle on 28-93-8701Iytclqyxo GFR ()> 60 mL/MinPremier Health Miami Valley HospitalComment on above:GFR estimated reference range: According to KDOQI guidelines, <60 ml/min/1.73m2 is sufficient todiagnose a patient with chronic kidney disease.Pharmacy Creatinine Clearance (ChemN/[facility] CenterNucleated erythrocytes [Presence] in Blood by Automated countOrdered By: Maximiliano Belle on 84-06-6716Teybeusoz RBC Auto Ql (Bld)0.1 %0-0.5FUC HealthPlatelet mean volume Auto (Bld) [Entitic vol]Ordered By: Maximiliano Belle on 88-39-5512Xdlxvbpr mean volume (Bld) [Entitic vol]8.3 fL 6.6-10.1FUC HealthPlatelets Auto (Bld) [#/Vol]Ordered By: Maximiliano Belle on 14-19-9856Uhupfupwu (Bld) [#/Vol]204 10*3/tM352-080XjuyfrmvdPremier Health Miami Valley HospitalProtein [Mass/volume] in Serum or PlasmaOrdered By: Maximiliano Belle on 61-12-8586Sljdqpz [Mass/Vol]6.0 g/dL6.1-7.9[facility] HospitalProthrombin Time INRon 68-31-3419NRC Coag (PPP) [Relative time]2.4 {INR}[facility] [employer] Other Prothrombin Time INRNortKaleida Health [employer] Other RBC Auto (Bld) [#/Vol]Ordered By: Maximiliano Belle on 02-13-0606WLZ (Bld) [#/Vol]4.48 10*6/uL3.90-5.60[facility] Medical Centererum or plasma alanine aminotransferase measurement without P-5'-P (enzymatic activiOrdered By: Maximiliano Belle on 63-07-0000DJB No additional P-5'-P [Catalytic activity/Vol]See zxknfra69-19DtdgtkinePremier Health Miami Valley Hospital Comment on above:Specimen hemolyzed, redraw requestedSerum or plasma albumin/globulin mass ratioOrdered By: Maximiliano Belle on 01-19-2022 Albumin/Globulin [Mass ratio]1.5 {ratio}[facility] Medical Centererum or plasma alkaline phosphatase measurement (enzymatic activity/volume)Ordered By: Maximiliano Belle on 41-98-0346CWR [Catalytic activity/Vol]See eqwzrjl87-57 [facility] HospitalComment on above:Specimen hemolyzed, redraw requestedSerum or plasma anion gap determinationOrdered By: Maximiliano Belle on 76-69-7372Ruycu gap [Moles/Vol]TNPPremier Health Miami Valley HospitalComment on above:Test not performedSerum or plasma aspartate aminotransferase measurement (enzymatic activity/volume)Ordered By: Maximiliano Belle on 01-04-7911VZD [Catalytic activity/Vol]See zzyitih23-55WvjsrnqukPremier Health Miami Valley HospitalComment on above:Specimen hemolyzed, redraw requestedSerum or plasma calcium measurement (mass/volume)Ordered By: Maximiliano Belle on 43-72-6227Ecizmwa [Mass/Vol]9.0 mg/dL 8.2-10.2FWilson Memorial Hospitalerum or plasma chloride measurement (moles/volume)Ordered By: Maximiliano Belle on 10-96-7426Lysftrtp [Moles/Vol]101 mmol/J11-319GvmsjydnbCincinnati Children's Hospital Medical Centererum or plasma glucose measurement (mass/volume)Ordered By: Maximiliano Belle on 04-35-8645[place] [Mass/Vol]145 mg/uM95-201TjlrqhkqaPremier Health Miami Valley HospitalComment on above:ADA recommended reference rangeRandom Glucose Reference Range is dependent on time and content of last meal. Glucose of more than 200 mg/dL in a nonstressed, ambulatory subject supports the diagnosisof Diabetes Mellitus.Serum or plasma potassium measurement (moles/volume)Ordered By: Maximiliano Belle on 91-16-6444Mcvpccapd [Moles/Vol]See comment3.5-5.1FUC HealthComment on above: Specimen hemolyzed, redraw requestedSerum or plasma sodium measurement (moles/volume)Ordered By: Maximiliano Belle on 96-91-0998Vksfmw [Moles/Vol]135 mmol/N143-672OgrrfeblxCincinnati Children's Hospital Medical Centererum or plasma total bilirubin measurement (mass/volume)Ordered By: Maximiliano Belle on 81-69-4556Wuowtggii [Mass/Vol]See comment0.3-1.2FUC HealthComment on above: Specimen hemolyzed, redraw requestedSerum or plasma total carbon dioxide measurement (moles/volume)Ordered By: Maximiliano Belle on 32-40-7577SE8 [Moles/Vol]26.4 mmol/L22.0-30.0[facility] Medical Centererum or plasma urea nitrogen measurement (mass/volume)Ordered By: Maximiliano Belle on 01-19-2022 Urea nitrogen [Mass/Vol]16 mg/dL9-23Prem[facility] HospitalWBC Auto (Bld) [#/Vol]Ordered By: Maximiliano Belle on 59-88-5745IFC (Bld) [#/Vol]3.4 10*3/uL4.5-11.0[facility] HospitalProthrombin Time INRon 00-86-7549OMI Coag (PPP) [Relative time]2.8 {INR}[employer] Other Prothrombin Time [employer] Other Prothrombin Time INRon 63-56-5138YON Coag (PPP) [Relative time]2.9 {INR}[employer] Other Prothrombin Time [employer] Other Prothrombin Time INRon 46-59-3163OTU Coag (PPP) [Relative time]2.4 {INR}[employer] Other Prothrombin Time [employer] Other Basophils Auto (Bld) [#/Vol]Ordered By: Maximiliano Belle on 24-68-7237Yvfeatmwb (Bld) [#/Vol]0.0 10*3/uL0.0-0.2FUC HealthBasophils/100 WBC Auto (Bld)Ordered By: Maximiliano Belle on 08-85-6611Lzhwhmihz/100 WBC (Bld)1.2 %.[facility] HospitalBlood hemoglobin measurement (mass/volume)Ordered By: Maximiliano Belle on 09-24-2021 Hemoglobin (Bld) [Mass/Vol]13.9 g/dL13.0-17.0[facility] Blood leukocytes automated count (number/volume)Ordered By: Maximiliano Belle on 53-95-8644MVA (Bld) [#/Vol]4.0 10*3/uL4.5-11.0[facility] Body fluid albumin measurement (mass/volume)Ordered By: Maximiliano Belle on 52-41-1991Vxxkkkb (Body fld) [Mass/Vol]3.7 g/dL3.2-5.5FUC HealthCreatinine and Glomerular filtration rate.predicted panel (S/P/Bld) Ordered By: Maximiliano Belle on 45-27-3245Qansdrnqhj [Mass/Vol]0.75 mg/dL0.64-1.27 [facility] HospitalEosinophils Auto (Bld) [#/Vol]Ordered By: Maximiliano Belle on 34-60-9907Vkspzeettfl (Bld) [#/Vol]0.2 10*3/uL0.0-0.45 [facility] HospitalEosinophils/100 WBC Auto (Bld)Ordered By: Maximiliano Belle on 57-69-6666Wgahryngrtq/100 WBC (Bld)3.8 %.[facility] HospitalErythrocyte distribution width Auto (RBC) [Ratio]Ordered By: Maximiliano Belle on 30-90-7912Qiozwlmtdej distribution width (RBC) [Ratio]14.1 % 12.0-14.8Prem[facility] HospitalErythrocyte sedimentation rate by Photometric methodOrdered By: Maximiliano Belle on 14-35-1217ENG Photometric method (Bld) [Velocity]10 mm/hr0-19Prem[facility] HospitalEstimated glomerular filtration rate (GFR) non- AmericanOrdered By: Maximiliano Belle on 31-36-5985VQB/1.73 sq M.predicted among non-blacks MDRD (S/P/Bld) [Vol rate/Area]> 60 mL/MinPremier Health Miami Valley HospitalGlobulin Calc (S) [Mass/Vol]Ordered By: Maximiliano Belle on 35-83-3626Uibdcabc (S) [Mass/Vol]2.5 g/dLPremier Health Miami Valley HospitalHematocrit Auto (Bld) [Volume fraction] Ordered By: Maximiliano Belle on 50-77-4677Nrtxjoqjji (Bld) [Volume fraction]41.5 % 38.8-50.0[facility] HospitalLaboratory - Hematology and Cell countsOrdered By: Maximiliano eBlle on 51-68-9404Dohonpykz RBC/100 WBC (Bld) [Ratio]0.0 %0-0.5FUC HealthLymphocytes Auto (Bld) [#/Vol] Ordered By: Maximiliano Belle on 65-07-7734Snkgbtahgtx (Bld) [#/Vol]1.0 10*3/uL 1.00-4.8[facility] HospitalLymphocytes/100 WBC Auto (Bld)Ordered By: Maximiliano Belle on 28-50-1620Vfgmawhzadk/100 WBC (Bld)25.6 %.[facility] Auto (RBC) [Entitic mass]Ordered By: Maximiliano Belle on 22-46-2527LBL (RBC) [Entitic mass]30.7 pg27.5-35.2FUC HealthMCHC Auto (RBC) [Mass/Vol]Ordered By: Maximiliano Belle on 16-47-6639GGLM (RBC) [Mass/Vol]33.6 g/dL32.5-35.6FUC HealthMCV Auto (RBC) [Entitic vol]Ordered By: Maximiliano Belle on 30-87-4038TNY (RBC) [Entitic vol]91.5 fL83.5-101Prem[facility] HospitalMonocytes Auto (Bld) [#/Vol] Ordered By: Maximiliano Belle on 14-84-0777Bybqpbrjt (Bld) [#/Vol]0.4 10*3/uL 0.0-0.8[facility] HospitalMonocytes/100 WBC Auto (Bld)Ordered By: Maximiliano Belle on 03-98-5280Fxjbloycq/100 WBC (Bld)9.4 %.[facility] HospitalNeutrophils Auto (Bld) [#/Vol]Ordered By: Maximiliano Belle on 43-83-6278Adthiqkkapl (Bld) [#/Vol]2.4 10*3/uL1.8-7.7FUC HealthNeutrophils/100 WBC Auto (Bld)Ordered By: Maximiliano Belle on 09-24-2021 Neutrophils/100 WBC (Bld)60.0 %.[facility] HospitalNo Panel InformationOrdered By: Maximiliano Belle on 88-03-4123Tzuumzsok GFR ()> 60 mL/MinPremier Health Miami Valley HospitalComment on above:GFR estimated reference range: According to KDOQI guidelines, <60 ml/min/1.73m2 is sufficient todiagnose a patient with chronic kidney disease.Pharmacy Creatinine Clearance (ChemN/[facility] CenterPlatelet mean volume Auto (Bld) [Entitic vol]Ordered By: Maximiliano Belle on 69-92-9419Yvhaezvo mean volume (Bld) [Entitic vol]8.9 fL6.6-10.1FUC HealthPlatelets Auto (Bld) [#/Vol]Ordered By: Maximiliano Belle on 34-03-6503Hkujiijdk (Bld) [#/Vol]176 10*3/pZ675-083LgljfkphvPremier Health Miami Valley HospitalProtein [Mass/volume] in Serum or PlasmaOrdered By: Maximiliano Belle on 69-83-1154Mjsmpsl [Mass/Vol]6.2 g/dL6.1-7.9 [facility] HospitalRBC Auto (Bld) [#/Vol]Ordered By: Maximiliano Belle on 99-78-6246QOS (Bld) [#/Vol]4.53 10*6/uL3.90-5.60[facility] Medical Centererum or plasma alanine aminotransferase measurement without P-5'-P (enzymatic activiOrdered By: Maximiliano Belle on 60-05-1255ZIL No additional P-5'-P [Catalytic activity/Vol]23 U/F13-31YkchbkzwlCincinnati Children's Hospital Medical Centererum or plasma albumin/globulin mass ratioOrdered By: Maximiliano Belle on 97-90-2906Jfixgef/Globulin [Mass ratio]1.5 {ratio}[facility] Medical Centererum or plasma alkaline phosphatase measurement (enzymatic activity/volume)Ordered By: Maximiliano Belle on 60-44-1017IMA [Catalytic activity/Vol]39 U/Z58-58XgrspisfnCincinnati Children's Hospital Medical Centererum or plasma aspartate aminotransferase measurement (enzymatic activity/volume)Ordered By: Maximiliano Belle on 01-21-4332LYU [Catalytic activity/Vol]19 U/O77-19NamknhbicCincinnati Children's Hospital Medical Centererum or plasma calcium measurement (mass/volume)Ordered By: Maximiliano Belle on 31-04-9655Yitassd [Mass/Vol]9.4 mg/dL8.2-10.2FWilson Memorial Hospitalerum or plasma chloride measurement (moles/volume) Ordered By: Maximiliano Belle on 31-79-1682Dokidnzq [Moles/Vol]97 mmol/L95-114 [facility] Centererum or plasma glucose measurement (mass/volume)Ordered By: Maximiliano Belle on 26-55-1239Etccnjr [Mass/Vol]169 mg/dL 70-100Prem[facility] HospitalComment on above:ADA recommended reference range Random Glucose Reference Range is dependent on time and content of last meal. Glucose of more than 200 mg/dL in a nonstressed, ambulatory subject supports the diagnosis of Diabetes Mellitus.Serum or plasma potassium measurement (moles/volume)Ordered By: Maximiliano Belle on 49-35-9608Wjudmoaxd [Moles/Vol]3.8 mmol/L3.5-5.1FWilson Memorial Hospitalerum or plasma sodium measurement (moles/volume)Ordered By: Maximiliano Belle on 99-44-2125Xlposp [Moles/Vol]135 mmol/X943-247DmhzelvsnCincinnati Children's Hospital Medical Centererum or plasma total bilirubin measurement (mass/volume)Ordered By: Maximiliano Belle on 52-09-4933Xkyleyzar [Mass/Vol]0.2 mg/dL0.3-1.2FWilson Memorial Hospitalerum or plasma total carbon dioxide measurement (moles/volume)Ordered By: Maximiliano Belle on 85-03-5281SQ3 [Moles/Vol]25.0 mmol/L22.0-30.0[facility] Serum or plasma urea nitrogen measurement (mass/volume)Ordered By: Maximiliano Belle on 45-51-5100Bxuk nitrogen [Mass/Vol]14 mg/dL9-23Prem[facility] HospitalProthrombin Time INRon 91-41-5656ZLM Coag (PPP) [Relative time]1.7 {INR}[employer] Other Prothrombin Time INRGreenview [employer]u [employer] Other Prothrombin Time INRon 81-53-8243OUJ Coag (PPP) [Relative time]2.0 {INR}[employer] Other Prothrombin Time INRGreenview [employer]u [employer] Other Prothrombin Time INRon 88-95-3110IRB Coag (PPP) [Relative time]1.6 {INR}[employer] Other Prothrombin Time INRGreenview Buru [employer] Other Complete Blood Counton 37-98-4590Zaufabkwytc distribution width (RBC) [Ratio]12.2 %Ilfldy65.0-15.0NortTrinity Health System [facility] Campus SpecialistComment on above:Performed By: #### CMP, CBC #### [facility] [address], [place] [id number] (Bld) [Volume fraction]37.8 %Low38.5-50.0Nortdiamond [facility]'s [facility] centern [facility] [place] SpecialistComment on above:Performed By: #### CMP, CBC #### [facility] [address], [place] [id number] (Bld) [Mass/Vol]12.9 g/dLLow13.0-17.1[facility] [place] SpecialistComment on above:Performed By: #### CMP, CBC #### [facility] [address], [place] [id number] (RBC) [Entitic mass]30.2 wyBjmxfw44.0-33.0Nortdiamond [facility] medical centern [facility] [place] SpecialistComment on above:Performed By: #### CMP, CBC #### [facility] [address], [place] [id number] (RBC) [Mass/Vol]34.1 g/nAUzyohl76.0-36.0Nortdiamond children[facility] medical centern [facility] [place] SpecialistComment on above:Performed By: #### CMP, CBC #### [facility] [address], [place] [id number] (RBC) [Entitic vol]89 cKVejrvw12-351Jpxevfus [place] [facility] SpecialistComment on above:Performed By: #### CMP, CBC #### [facility] [address], [place] [id number] mean volume (Bld) [Entitic vol]10.00 fLNormal 7.50-12.50NoAshtabula County Medical Center SpecialistComment on above:Performed By: #### CMP, CBC #### [facility] [address], [place] [id number] (Bld) [#/Vol]250 10*3/bBOgzruw597-946Ekwdkusj [place] [facility] SpecialistComment on above:Performed By: #### CMP, CBC #### [facility] [address], [place] [id number] (Bld) [#/Vol]4.27 10*6/uLNormal4.20-5.80NortTrinity [facility] SpecialistComment on above:Performed By: #### CMP, CBC #### [facility] [address], [place] [id number]-YK74.3 xHApnsyi81.0-50.0NoAshtabula County Medical Center Specialist Comment on above:Performed By: #### CMP, CBC #### [facility] [address], [place] [id number] (Bld) [#/Vol]4.1 10*3/uLNormal3.8-11.0NoAshtabula County Medical Center SpecialistComment on above:Performed By: #### CMP, CBC #### [facility] [address], [place] [id number] Metabolic Panelon 50-27-3702Mkroory [Mass/Vol] 4.0 g/dLNormal3.6-5.1NortherSamaritan North Health Center SpecialistComment on above:Performed By: #### CMP, CBC #### [facility] [address], [place] [id number]/Globulin [Mass ratio]1.7 {ratio}Normal1.0-2.5NoAshtabula County Medical Center SpecialistComment on above:Performed By: #### CMP, CBC #### [facility] [address], [place] [id number] [Catalytic activity/Vol]50 U/UFiweux67-785Yacagaej [place] [facility] SpecialistComment on above:Performed By: #### CMP, CBC #### [facility] [address], [place] [id number] [Catalytic activity/Vol]20 U/LNormal9-46NortTrinity [facility] SpecialistComment on above:Result Comment: 01/21/2021 Female reference range changed.Performed By: #### CMP, CBC #### [facility] [address], [place] [id number] gap [Moles/Vol]17 mmol/JJesdsa54-62Hlxyhwhd [place] [facility] SpecialistComment on above:Result Comment: Effective 02/26/2019 reference range changed.Performed By: #### CMP, CBC #### [facility] [address], [place] [id number] [Catalytic activity/Vol]22 U/GWtjdhd45-60Wcqipcmr [place] [facility] SpecialistComment on above:Performed By: #### CMP, CBC #### [facility] [address], [place] [id number] [Mass/Vol]0.55 mg/dLNormal0.30-1.20NortTrinity [facility] SpecialistComment on above:Performed By: #### CMP, CBC #### [facility] [address], [place] [id number]/CREA11 RatioNormal6-22NoSierra View [facility] Newspaper Journalist Comment on above:Performed By: #### CMP, CBC #### [facility] [address], [place] [id number] [Mass/Vol]9.0 mg/dLNormal8.6-10.2[facility] [place] SpecialistComment on above:Performed By: #### CMP, CBC #### [facility] [address], [place] [id number] [Moles/Vol]95 mmol/TWqq04-148Tfiasuee [place] [facility] SpecialistComment on above:Performed By: #### CMP, CBC #### [facility] [address], [place] [id number] [Moles/Vol]25 mmol/HLkfniv85-12Izonogyc [place] [facility] SpecialistComment on above:Performed By: #### CMP, CBC #### [facility] [address], [place] [id number] [Mass/Vol]0.9 mg/dLNormal0.7-1.4Nortdiamond [facility]ern [facility] [place] SpecialistComment on above:Performed By: #### CMP, CBC #### [facility] [address], [place] [id number] mL/min/1.42r7Wemebx>60Nortdiamond [facility]ern [facility] [place] SpecialistComment on above:Performed By: #### CMP, CBC #### [facility] [address], [place] [id number] mL/min/1.25t5Caivyg>60Nortdiamond [facility]ern [facility] [place] SpecialistComment on above:Performed By: #### CMP, CBC #### [facility] [address], [place] [id number] (S) [Mass/Vol]2.4 g/dLNormal1.9-3.7Nortdiamond [facility] centern [facility] [place] SpecialistComment on above:Performed By: #### CMP, CBC #### [facility] [address], [place] [id number] [Mass/Vol]119 mg/oRYxri98-21Xlhtitnj [place] [facility] SpecialistComment on above:Result Comment: For FASTING Glucose --- ADA reference ranges: Normal 65-99 mg/dl Prediabetes 100-125 Diabetes >/= 126Performed By: #### CMP, CBC #### [facility] [address], [place] [id number] [Moles/Vol]3.2 mmol/LLow3.5-5.5NortTrinity [facility] SpecialistComment on above:Performed By: #### CMP, CBC #### [facility] [address], [place] [id number] [Mass/Vol]6.4 g/dLNormal6.1-8.1NortherSamaritan North Health Center SpecialistComment on above:Performed By: #### CMP, CBC #### [facility] [address], [place] [id number] [Moles/Vol]134 mmol/WXfk228-964Civkpijx [place] [facility] SpecialistComment on above:Performed By: #### CMP, CBC #### [facility] [address], [place] [id number] nitrogen [Mass/Vol]10 mg/dLNormal7-25NoAshtabula [facility] Center SpecialistComment on above:Performed By: #### CMP, CBC #### [facility] [address], [place] [id number] 12-44-1131FYOB009.7 ng/tNBeyfrr59.0-400.0NoAshtabula County [facility] Center SpecialistComment on above:Performed By: #### FERR, FE Prof #### [facility] [address], [place] [id number] Profileon 07-22-2021%FESAT23 %Ujlxxx60-49Flbcdput [place] [facility] SpecialistComment on above:Performed By: #### FERR, FE Prof #### [facility] [address], [place] [id number] ug/kEWwcors92-868Ypgdnewb [place] [facility] SpecialistComment on above:Result Comment: Reference range change 01/07/2017. Prior reference range F 37-145 ug/dL, M 59-158 ug/dL.Performed By: #### FERR, FE Prof #### [facility] [address], [place] [id number] ug/hUVsfemv811-300Jfljxans [place] Newspaper Journalist Comment on above:Performed By: #### FERR, FE Prof #### [facility] [address], [place] [id number] ug/lNKbvfkd253-370Xizamamq [place] [employer]aper Journalist Comment on above:Performed By: #### ROXANA RODRIGUEZ Prof #### [facility] [address] [facility] [place] [id number] Chest 2 Views*on 20-56-7849JO Chest 2 Views*COMPARISON: Chest x-ray from 08/06/2020 TECHNIQUE: Upright PA and lateral views of the chest were obtained. FINDINGS: Heart is normal in size. Lungs are clear and well expanded. No pleural effusion or pneumothorax. The bony thorax is unremarkable. IMPRESSION: NO ACUTE CARDIOPULMONARY ABNORMALITY. Report reported and signed by ALINA WAKEFIELD on 07/22/2021 1050NormalNortdiamond children's medical centern [place] [facility] SpecialistProthrombin Time INRon 73-31-7897TQS Coag (PPP) [Relative time]2.1 {INR}[employer] Other Prothrombin Time [employer] Other Prothrombin Time INRon 04-37-7721IIR Coag (PPP) [Relative time]1.4 {INR}[employer] Other Prothrombin Time [employer] Other Prothrombin Time [employer] 46-31-8502NBJ Coag (PPP) [Relative time]1.3 {INR}[employer] Other Prothrombin Time [employer] Other Prothrombin Time [employer] 29-67-6652JRL Coag (PPP) [Relative time]1.0 {INR}[employer] Other Prothrombin Time [employer] Other Tobacco Screening.on 01-15-8125Pmivr depression screening assessmentNoSh[facility]ers [facility] [place] [address] DO Work Phone: Fall risk assessmenta) No falls within the last year [facility] [place] [address] DO Work Phone: Tobacco use status CPHSb) [facility] [place] [address] DO Work Phone: Basic Metabolic Panelon 23-95-3027Nqukl gap [Moles/Vol]16 mmol/CWhplzx85-90Cnicpubm [place] [facility] SpecialistComment on above: Result Comment: Effective 02/26/2019 reference range changed.Performed By: #### DELMER, CBCAD #### [facility] [address], [place] [id number] [Mass/Vol]9.8 mg/dLNormal8.6-10.2[facility] [place] [facility] SpecialistComment on above:Performed By: #### DELMER, CBCAD #### [facility] [address], [place] [id number] [Moles/Vol]103 mmol/GJcmksb80-005Cjtmmonx [place] [facility] SpecialistComment on above:Performed By: #### DELMER, CBCAD #### [facility] [address], [place] [id number] [Moles/Vol]27 mmol/GNpeoio41-11Cyftbdgr [place] [facility] SpecialistComment on above:Performed By: #### DELMER, CBCAD #### [facility] [address], [place] [id number] [Mass/Vol]1.1 mg/dLNormal0.7-1.4[facility] [place] [facility] SpecialistComment on above:Performed By: #### DELMER, CBCAD #### [facility] [address], [place] [id number] mL/min/1.38i6Vsinaq>60[facility] [place] [facility] SpecialistComment on above:Performed By: #### DELMER, CBCAD #### [facility] [address], [place] [id number] mL/min/1.69n7Pdgztx>60[facility] [place] [facility] SpecialistComment on above:Performed By: #### DELMER, CBCAD #### [facility] [address], [place] [id number] [Mass/Vol]146 mg/dINuwu45-87Qdiaxnhl [place] [facility] SpecialistComment on above:Result Comment: For FASTING Glucose --- ADA reference ranges: Normal 65-99 mg/dl Prediabetes 100-125 Diabetes >/= 126Performed By: #### DELMER, CBCAD #### [facility] [address], [place] [id number] [Moles/Vol]4.1 mmol/LNormal3.5-5.5NoAshtabula [facility] Center SpecialistComment on above:Performed By: #### DELMER, CBCAD #### [facility] [address], [place] [id number] [Moles/Vol]141 mmol/WPnhzph741-536Qjkvsrks [place] [facility] SpecialistComment on above:Performed By: #### DELMER, CBCAD #### [facility] [address], [place] [id number] nitrogen [Mass/Vol]14 mg/dLNormal7-25NoAshtabula County [facility] Center SpecialistComment on above:Performed By: #### DELMER, CBCAD #### [facility] [address], [place] [id number] Blood Count with Auto Diffon 55-27-9524Iwfnnrucs (Bld) [#/Vol]0.10 10*3/uLNormal0.00-0.20NoWilson Memorial HospitalComment on above:Performed By: #### DELMER, CBCAD #### [facility] [address], [place] [id number]/100 WBC (Bld)2.3 %NormalNoAshtabula County Medical Center SpecialistComment on above:Performed By: #### DELMER, CBCAD #### [facility] [address], [place] [id number] (Bld) [#/Vol]0.45 10*3/uLNormal0.02-0.50NoAshtabula County [facility] Center SpecialistComment on above:Performed By: #### DELMER, CBCAD #### [facility] [address], [place] [id number]/100 WBC (Bld)10.5 %NormalNoAshtabula County Medical Center SpecialistComment on above:Performed By: #### DELMER, CBCAD #### [facility] [address], [place] [id number] distribution width (RBC) [Ratio]12.9 %Normal 11.0-15.0[facility] SpecialistComment on above:Performed By: #### DELMER, CBCAD #### [facility] [address], [place] [id number] (Bld) [Volume fraction]41.5 %Svgblw35.5-50.0 [facility] SpecialistComment on above:Performed By: #### DELMER, CBCAD #### [facility] [address], [place] [id number] (Bld) [Mass/Vol]13.5 g/eSIxlizn74.0-17.1[facility] SpecialistComment on above:Performed By: #### DELMER, CBCAD #### [facility] [address], [place] [id number] (Bld) [#/Vol]1.1 10*3/uLNormal0.9-3.9[facility] SpecialistComment on above:Performed By: #### DELMER, CBCAD #### [facility] [address], [place] [id number]/100 WBC (Bld)26.4 %NormalUniversity Hospitals Parma [facility] SpecialistComment on above:Performed By: #### DELMER, CBCAD #### [facility] [address], [place] [id number] (RBC) [Entitic mass]30.3 jpWfdnkk52.0-33.0University [facility] SpecialistComment on above:Performed By: #### BMP, CBCAD #### [facility] [address], [place] [id number] (RBC) [Mass/Vol]32.5 g/uXLlbggq66.0-36.0[facility] [place] [facility] SpecialistComment on above:Performed By: #### DELMER, CBCAD #### [facility] [address], [place] [id number] (RBC) [Entitic vol]93 lIUlrqve41-014Njibabfe [place] [facility] SpecialistComment on above:Performed By: #### DELMER, CBCAD #### [facility] [address], [place] [id number] (Bld) [#/Vol]0.5 10*3/uLNormal0.2-0.9[facility] SpecialistComment on above:Performed By: #### DELMER, CBCAD #### [facility] [address], [place] [id number]/100 WBC (Bld)12.4 %NormalNoAshtabula [facility] Center SpecialistComment on above:Performed By: #### DELMER, CBCAD #### [facility] [address], [place] [id number] (Bld) [#/Vol]2.1 10*3/uLNormal1.5-7.8[facility] SpecialistComment on above:Performed By: #### DELMER, CBCAD #### [facility] [address], [place] [id number]/100 WBC (Bld)48.2 %NormalNoAshtabula County Medical Center SpecialistComment on above:Performed By: #### DELMER, CBCAD #### [facility] [address], [place] [id number] mean volume (Bld) [Entitic vol]10.40 fLNormal 7.50-12.50[facility] SpecialistComment on above:Performed By: #### DELMER, CBCAD #### [facility] [address], [place] [id number] (Bld) [#/Vol]195 10*3/wIKnwrmb169-116Otdwnitf [place] [facility] SpecialistComment on above:Performed By: #### DELMER, CBCAD #### [facility] [address], [place] [id number] (Bld) [#/Vol]4.46 10*6/uLNormal4.20-5.80Nort[facility]ern [place] [facility] SpecialistComment on above:Performed By: #### DELMER, CBCAD #### [facility] [address], [place] [id number]-XN76.0 lDGxrlgb92.0-50.0[facility] [place] [employer] Journalist Comment on above:Performed By: #### BMP, CBCAD #### [facility] [address], [place] [id number] (Bld) [#/Vol]4.3 10*3/uLNormal3.8-11.0Nortdiamond [facility] centern [place] Medical SpecialistComment on above:Performed By: #### DELMER, CBCAD #### [facility] [address], [place] [id number] 24-71-0769WmawqdzuvbostblhJn[address], [address] [place] [address] TRANSTHORACIC ECHOCARDIOGRAM REPORT Patient Name: NEREYDA Rutherford Physician: [id number] Jose Angel BARKER MD Study Date: 10/09/2020 Referring Richard Rodríguez MD Physician: MRN/PID: [id number] PCP: Richard Rodríguez MD Accession/Order#: [id number] [facility] Location: Date of : 1950 Fellow: Gender: M Nurse: Dominga Jordan RN Admit Date: Controls Designer: Mckayla Valverde [facility], RVT Height: 167.64 cm CC Report to: [id number] Jose Angel Palmer MD Weight: 106.60 kg Study Type: Echocardiogram BSA: 2.14 m2 Blood Pressure: 170 /96 mmHg Diagnosis/ICD: R06.02-Shortness of breath Indication: Atrial Fibrillation, Diabtes, HTN, Hyperlipidemia, Former Smoker, Obesity, Rheumatoid Arthritis Procedure/CPT: Echo Complete w Full Doppler-41340 Study Detail: The following Echo studies were performed: 2D, M-Mode, Doppler and color flow. Optison used as a contrast agent for endocardial border definition. Total contrast used for this procedure was 0.7 mL via IV push. PHYSICIAN INTERPRETATION: Left Ventricle: The left ventricular systolic function is normal, with an estimated ejection fraction of 60%. The left ventricular cavity size is normal. Spectral Doppler shows an impaired relaxationpattern of left ventricular diastolic filling. Left Atrium: The left atrium is mildly dilated. Right Ventricle: The right ventricle is normal in size. There is normal right ventricular global systolic function. Right Atrium: The right atrium is normal in size. Aortic Valve: The aortic valve appears structurally normal. There is no evidence of aortic valve regurgitation. The peak instantaneous gradient of the aortic valve is 5.4 mmHg. The mean gradient of the aortic valve is 3.0 mmHg. Mitral Valve: The mitral valve is normal in structure. There is trace to mild mitral valve regurgitation. Tricuspid Valve: The tricuspid valve is structurally normal. There is trace tricuspid regurgitation. The Doppler estimated RVSP is within normal limits at 29.2 mmHg. Pulmonic Valve: The pulmonic valve is structurally normal. There is no indication of pulmonic valveregurgitation. Pericardium: There is no pericardial effusion noted. Aorta: The aortic root is normal. Systemic Veins: The inferior vena cava appears to be of normal size. CONCLUSIONS: 1. The left ventricular systolic function is normal with a 60% estimated ejection fraction. 2. Spectral Doppler shows an impaired relaxation pattern of left ventricular diastolic filling. 3. RVSP within normal limits. 4. No significant changes noted when compared to prior study. QUANTITATIVE DATA SUMMARY: 2D MEASUREMENTS: Normal Ranges: Ao Root d: 2.80 cm (2.0-3.7cm) LAs: 4.20 cm (2.7-4.0cm) RVIDd: 3.10 cm (0.9-3.6cm) IVSd: 1.30 cm (0.6-1.1cm) LVPWd: 1.00 cm (0.6-1.1cm) LVIDd: 4.90 cm (3.9-5.9cm) LVIDs: 3.50 cm LV Mass Index: 99.6 g/m2 LV % FS 28.6 % LV SYSTOLIC FUNCTION BY 2D PLANIMETRY (MOD): Normal Ranges: EF-A4C View: 63.6 % (>55%) LV DIASTOLIC FUNCTION: Normal Ranges: MV Peak E: 0.87 m/s (0.7-1.2 m/s) MV Peak A: 1.07 m/s (0.42-0.7 m/s) E/A Ratio: 0.82 (1.0-2.2) MV lateral e' 0.10 m/s MV medial e' 0.06 m/s E/e' Ratio: 8.60 (<8.0) MITRAL VALVE: Normal Ranges: MV Vmax: 1.14 m/s (<1.3m/s) MV peak P.2 mmHg (<5mmHg) MV mean P.0 mmHg (<48mmHg) MITRAL INSUFFICIENCY: Normal Ranges: MR Vmax: 409.00 cm/s AORTIC VALVE: Normal Ranges: AoV Vmax: 1.16 m/s (<1.7m/s) AoV Peak P.4 mmHg (<20mmHg) AoV Mean P.0 mmHg (1.7-11.5mmHg) LVOT Max Jonh: 0.97 m/s (<1.1m/s) AoV VTI: 27.20 cm (18-25cm) LVOT VTI: 21.90 cm LVOT Diameter: 2.30 cm (1.8-2.4cm) AoV Area, VTI: 3.35 cm2 (2.5-5.5cm2) AoV Area,Vmax: 3.47 cm2 (2.5-4.5cm2) AoV Dimensionless Index: 0.81 TRICUSPID VALVE/RVSP: Normal Ranges: Peak TR Velocity: 2.56 m/s RV Syst Pressure: 29.2 mmHg (< 30mmHg) PULMONIC VALVE: Normal Ranges: PV Max Jonh: 0.8 m/s (0.6-0.9m/s) PV Max P.3 mmHg PIEDV: 1.62 m/s PADP: 13.5 mmHg [id number] Jose Angel Palmer MD Electronically signed on 10/09/2020 at 4:18:31 PM Final NormalMemorial Hospital NorthQUANTIFERON TB GOLD PLUS (NON-INC)on [id number] performed.NormalThe Southwest General Health CenterComment on above:Result Comment: Performed at: O_Performed By: #### QNTTBG #### [facility] [address] [place] [address] Cathryn KarenCriteriaCommentNoalThSt. Francis HospitalComment on above:Result Comment: The QuantiFERON-TB Gold Plus result is determined by subtracting the Nil value from either TB antigen (Ag) tube. The mitogen tube serves as a control for the test. Performed at: CBPerformed By: #### QNTTBG #### [facility] [address] [place] [address] Cathryn KarenMitogen Value1.60 IU/mLNKettering Health TroyComschoolcraft memorial hospital on above: Result Comment: Performed at: CBPerformed By: #### QNTTBG #### [facility] [address] [place] [address] Cathryn KarenNill Value0.04 IU/mLNKettering Health TroyComschoolcraft memorial hospital on above: Result Comment: Performed at: CBPerformed By: #### QNTTBG #### [facility] [address] [place] [address] Cathryn KarenQuantiferon Gold PlusNegativermUniversity Hospitals [facility] Center Comment on above:Result Comment: Performed at: CBPerformed By: #### QNTTBG #### [facility] [address] [place] [address] Cathryn KarenTB1 Ag Value0.03 IU/mLNKettering Health TroyComschoolcraft memorial hospital on above: Result Comment: Performed at: CBPerformed By: #### QNTTBG #### [facility] [address] [place] [address] Cathryn KarenTB2 Ag Value0.03 IU/mLNKettering Health TroyComschoolcraft memorial hospital on above: Result Comment: Performed at: CBPerformed By: #### QNTTBG #### [facility] [address] [place] [address] Cathryn KarenHEP B COREon 08-93-9753Xaj B Core Ab, TotNegativeNormalNegMansfield HospitalComment on above:Performed By: #### HBCORE, HBSANS #### [facility] [address] [place] [address] Cathryn Moon B SURFACE AB QUALITATIVEon 82-14-9415Yfk B Surface Ab, QualNon ReactiveNormalThe [facility] Health CenterComment on above:Result Comment: Non Reactive: Inconsistent with immunity, less than 10 mIU/mL Reactive: Consistent with immunity, greater than 9.9 mIU/mLPerformed By: #### HBSABQL #### [facility] [address] [place] [address] Cathryn UnderwoodEP B SURFACE ANTIGEN SCREENon 13-64-9600GUwZg ScreenNegativeNormal NegativeThe [facility] General Health CenterComment on above:Performed By: #### HBCORE, HBSANS #### [facility] [address] [place] [address] Cathryn UnderwoodEPATITIIS C VIRUS ANTIBODYon 64-81-9089Ebu C Virus Ab<0.1Normal 0.0-0.9The [facility] CenterComschoolcraft memorial hospital on above:Result Comment: Negative: < 0.8 Indeterminate: 0.8 - 0.9 Positive: > 0.9 . The CDC recommends that a positive HCV antibody result be followed up with a HCV Nucleic Acid Amplification test (322464).Performed By: #### HCV #### [facility] [address] [place] [address] Cathryn BrysonXR CHEST 2 Von [id number] CHEST 2 VPatient: NEREYDA BARKER Exam Date: 11/23/2018 : 1950 Gender:M Ordering : DR MAXIMILIANO BELLE M.D. Admission #: [id number] Family : DR RICHARD RODRÍGUEZ Order #: [id number] CLICK HERE TO VIEW EXAM RADIOLOGY REPORT PROCEDURE: RADIOGRAPH CHEST 2 VIEWS COMPARISON: None. INDICATIONS: Immunosuppression, chronic shortness of breath FINDINGS: LUNGS: No significant pulmonary parenchymal abnormalities. VASCULATURE: No increased pulmonary vasculature. PLEURA: No pneumothorax, effusion, or pleural thickening. CARDIAC: No cardiomegaly or cardiac silhouette abnormality. MEDIASTINUM: No visible mass or adenopathy. BONES: No fracture or visible bone lesion. OTHER: Negative. CONCLUSION: 1. No acute cardiopulmonary process or significant chronic interstitial changes. Dictated by: Jadiel Reina M.D. on 11/23/2018 at 12:27 Approved by: Jadiel Reina M.D. on 11/23/2018 at 12:30[facility] Vital Signs Date TimeVital SignValuePerforming LugpybqkfAltkijdw91-25-7956 13:09-0400Body exzevu043.6 cmSsummerlin hospital Workman PA Work Phone: [facility] HospitalDwhltmgfyh43-42-2957 13:09-0400Body mass index (BMI) [Ratio]35.83 kg/z9Joaoya Workman PA Work Phone: [place] [address]Vzqtejlbph83-70-7621 13:090400Body vpbryr265.7 kgSuuniversity medical center of southern nevada Workman PA Work Phone: [place] [address]Ctmcpsnzjb64-37-3313 13:09-0400Diastolic blood jkifyzhx27 mm[Hg][facility] Workman PA Work Phone: [facility] HospitalCpsoqhhctp38-80-6268 13:09-0400Heart rate84 /min [facility] Work[facility] PA Work Phone: [place] [address]Zufegddekg66-99-5807 13:09-4149VhK8% (BldA) [Mass fraction]97 %[facility] Workman PA Work Phone: [place] [address]Fcbybmrgui08-94-0166 13:09-0400Systolic blood wckbobkc660 mm[Hg][facility] Workman PA Work Phone: [facility] HospitalYpsklsjhft97-74-9048 09:40-0400Diastolic blood ahcxivwl58 mm[Hg]Richard Rodríguez MD Work Phone: [facility]08-26-2025 09:40-0400 Heart rate66 /minRichard Rodríguez MD Work Phone: [facility]08-26-2025 09:40-0400 Respiratory rate17 /minRichard Rodríguez MD Work Phone: [facility]08-26-2025 09:40-0400 SaO2% (BldA) [Mass fraction]96 %Richard Rodríguez MD Work Phone: 1(419)626-[address] [place], [place] 4204408-26-2025 09:40-0400 Systolic blood zmytyrzk276 mm[Hg]Richard Rodríguez MD Work Phone: 9(553)682-[address] [place], [place] 4204408-26-2025 09:00-0400 Inhaled oxygen flow rate3 L/minRichard Rodríguez MD Work Phone: 9(860)[address]08-26-2025 07:52-0400 Body nfzbaa987.64 Audra Rodríguez MD Work Phone: 1(700)[address]08-26-2025 07:52-0400 Body .69 kgRichard Rodríguez MD Work Phone: 0(109)[address]08-19-2025 08:56-0400 Body edbarg258.6 cmJose Angel Palmer MD Work Phone: 1(973)[address]08-19-2025 08:56-0400 Body mass index (BMI) [Ratio]35.67 kg/m8YeqwofrJose Angel Palmer MD Work Phone: 1(947)[address]63 [address]08-19-2025 08:56-0400 Body uofoxj996.25 kgJose Angel Palmer MD Work Phone: 1(777)09[address]08-19-2025 08:56-0400 Diastolic blood vjfjvjly00 mm[Hg]Jose Angel Palmer MD Work Phone: 5(987)33963 [address]08-19-2025 08:56-0400 Heart rate64 /minJose Angel Palmer MD Work Phone: 1(307)[address]08-19-2025 08:56-0400 Systolic blood usqctrjs875 mm[Hg]Jose Angel Palmer MD Work Phone: 1(782)[address]08-13-2025 09:26-0400 Body sduxnw631.64 Audra Rodríguez MD Work Phone: [facility]08-13-2025 09:26-0400 Body mass index (BMI) [Ratio]37 kg/q2VlwzsoRichard Rodríguez MD Work Phone: [facility]08-13-2025 09:26-0400 Body yvkitd738 kgRichard Rodríguez MD Work Phone: [facility]08-06-2025 10:32-0400 Diastolic blood txisebln00 mm[Hg]Javan Magallanes MD Work Phone: [facility]08-06-2025 10:32-0400 Heart rate73 /minJavan Magallanes MD Work Phone: [address] [place], [place] 2845208-06-2025 10:32-0400 Respiratory rate15 /minJavan Magallanes MD Work Phone: [address] [place], [place] 2845208-06-2025 10:32-0400 SaO2% (BldA) [Mass fraction]100 %Javan Magallanes MD Work Phone: [facility]08-06-2025 10:32-0400 Systolic blood mm[Hg]Javan Magallanes MD Work Phone: [facility]08-06-2025 08:22-0400 Body qzhayo928.6 Debbie Magallanes MD Work Phone: [facility]08-06-2025 08:22-0400 Body mass index (BMI) [Ratio]35.83 kg/l4QflrenbtJavan Magallanes MD Work Phone: [facility]08-06-2025 08:22-0400 Body uglevezjgks27.8 [degF]Javan Magallanes MD Work Phone: [address] [place], [place] 2845208-06-2025 08:22-0400 Body kwudof012.7 kgJavan Magallanes MD Work Phone: [facility]07-22-2025 09:46-0400 Body vcrboo184.6 cmSumdanica SHORE Work Phone: [facility] HospitalUyzoiyeklz39-78-1742 09:46-0400Body mass index (BMI) [Ratio]36.15 kg/f1Rbixui Workman PA Work Phone: [facility] HospitalLiyxxujapu56-95-8644 09:46-0400Body oapjrs783.61 kgSumm Workman PA Work Phone: [facility] HospitalWuupwlgfdo13-11-3661 09:46-0400Diastolic blood pjdkkexz49 mm[Hg]Summer Workman PA Work Phone: [facility] HospitalHjloyqjkdb22-84-0868 09:46-0400Heart rate77 /min Summer Workman PA Work Phone: [facility] HospitalWpgojwpnya31-98-3900 09:46-4699IrY5% (BldA) [Mass fraction]96 %Summer Workman PA Work Phone: [facility] HospitalNfukmyzruq11-56-2649 09:46-0400Systolic blood mm[Hg][facility] Workman PA Work Phone: [facility] HospitalNdjufqmnrd32-92-8382 11:45-0400Body xqnofq602.6 Debbie Magallanes MD Work Phone: [address] [place], [place] 2845207-18-2025 11:45-0400 Body mass index (BMI) [Ratio]35.93 kg/s4MsazwpftJavan Magallanes MD Work Phone: [address] [place], [place] 2845207-18-2025 11:45-0400 Body owmled491.97 kgJavan Magallanes MD Work Phone: [address] [place], [place] 2845207-18-2025 11:45-0400 Diastolic blood jbvjvzyp11 mm[Hg]Javan Magallaens MD Work Phone: [address] [place], [place] 2845207-18-2025 11:45-0400 Heart rate68 /minJavan Magallanes MD Work Phone: [address] [place], [place] 2845207-18-2025 11:45-0400 Systolic blood mm[Hg]Javan Magallanes MD Work Phone: [address] [place], [place] 2845206-24-2025 10:35-0400 Body .6 Iris [place] MD Work Phone: 1(626)508-[address] [place], [place] 3982606-24-2025 10:35-0400 Body mass index (BMI) [Ratio]37.28 kg/x4FiuuisGunner [place] MD Work Phone: 1(770)167-[address] [place], [place] 3982606-24-2025 10:35-0400 Body kiplks991.78 kgGunner [place] MD Work Phone: [phone])414[address] [place], [place] 3982606-24-2025 10:35-0400 Diastolic blood mufnqxas26 mm[Hg]Gunner Colorado MD Work Phone: 1(317)507-[address] [place], [place] 3982606-24-2025 10:35-0400 Heart rate76 /minErbee Colorado MD Work Phone: 1(952)420-[address] [place], [place] 3982606-24-2025 10:35-0400 Systolic blood fqevdino083 mm[Hg]Gunner Colorado MD Work Phone: 1(590)019-[address] [place], [place] 3982606-16-2025 14:00-0400 Diastolic blood dldltogs64 mm[Hg]Richard Rodríguez MD Work Phone: [facility]06-16-2025 14:00-0400 Heart rate74 /Rebecca Rodríguez MD Work Phone: [facility]06-16-2025 14:00-0400 Respiratory rate18 /Rebecca Rodríguez MD Work Phone: [facility]06-16-2025 14:00-0400 SaO2% (BldA) [Mass fraction]95 %Richard Rodríguez MD Work Phone: [facility]06-16-2025 14:00-0400 Systolic blood scvzaozx761 mm[Hg]Richard Rodríguez MD Work Phone: [facility]06-16-2025 12:28-0400 Body fhefya716.64 Audra Rodríguez MD Work Phone: [facility]06-16-2025 12:28-0400 Body .32 kgRichard Rodríguez MD Work Phone: [facility]06-11-2025 13:24-0400 Body fqqbol179.6 cmJose Angel Palmer MD Work Phone: 1([phone])[address] [place], [place] 7064606-11-2025 13:24-0400 Body mass index (BMI) [Ratio]37.28 kg/v4KlhmtcoJose Angel Palmer MD Work Phone: 1(787)41463 [address]06-11-2025 13:24-0400 Body .78 kgJose Angel Palmer MD Work Phone: 1(452)414[address]06-11-2025 13:24-0400 Diastolic blood hwrsjieu25 mm[Hg]Jose Angel Palmer MD Work Phone: 1(029)[address] [place], [place] 7064606-11-2025 13:24-0400 Heart rate92 /Krunal Palmer MD Work Phone: 1(691)[address]06-11-2025 13:24-0400 Systolic blood ozadeqec249 mm[Hg]Jose Angel Palmer MD Work Phone: 1(722)[address] [place], [place] 7064605-28-2025 08:59-0400 Body rifuxo831.64 cmPrem[facility]05-28-2025 08:59-0400Body mass index (BMI) [Ratio]37.1 kg/t7GgrfocdivPremier Health Miami [facility] Hospital05-28-2025 08:59-0400Body oxdqee584.32 kgPrem[facility] Health [facility] Hospital05-28-2025 08:59-0400Diastolic blood eawhakwd63 mm[Hg][facility] 07-18-2024 08:59-0400Heart rate75 /minPrem[facility] Health [facility] Hospital 07-18-2024 08:59-0400Systolic blood tmvljrin340 mm[Hg][facility]02-24-2025 09:19-0500Body jrcofd591.6 cmWill Tamez NP Work Phone: noUniversity [facility] Health CareTqukakgnxv60-29-0194 09:19-0500Body mass index (BMI) [Ratio]36.64 kg/h6LdjipuoWill Tamez INDUCTION FURNACE OPERATOR Work Phone: NOUniversity of [facility] Health CareNeugkaxlyg29-88-7123 09:19-0500Body ygmmhq597.97 kgWill Tamez INDUCTION FURNACE OPERATOR Work Phone: NOUniversity of [facility] Health CareTxghngkdbz15-72-5514 09:19-0500Diastolic blood hbepfqjq12 mm[Hg]Will Tamez INDUCTION FURNACE OPERATOR Work Phone: NOUniversity of [place] Health CareTkevohibtf71-76-3843 09:19-0500Heart rate81 /min Will Tamez INDUCTION FURNACE OPERATOR Work Phone: noUniversity of [facility] Health CareAlkkxnwiub58-17-6450 09:19-1021XsD9% (BldA) [Mass fraction]97 %Will Tamez INDUCTION FURNACE OPERATOR Work Phone: noUniversity of [facility] Health CareHkbntzjgnu33-17-5904 09:19-0500Systolic blood mayfozuj438 mm[Hg]Will Tamez INDUCTION FURNACE OPERATOR Work Phone: NOUniversity of [place] Health CareFdjorjymtu84-44-2486 09:49-0500Body coljbo862.6 cmHaven Rolonti INDUCTION FURNACE OPERATOR Work Phone: [facility] HospitalPxpdcbvxzf11-21-3759 09:49-0500Body mass index (BMI) [Ratio]36.64 kg/m2Kasandraa Risaliti INDUCTION FURNACE OPERATOR Work Phone: NOUniversity of [place] Health CareRjosjwajcr86-17-0530 09:49-0500Body pftkzy595.97 kgGina Risaliti INDUCTION FURNACE OPERATOR Work Phone: NOUniversity of [place] Health CareWeosrhhdgn40-49-2302 09:49-0500Diastolic blood mm[Hg]Haven Risaliti INDUCTION FURNACE OPERATOR Work Phone: NOUniversity of [place] Health CareGjajimudck07-65-2603 09:49-0500Heart rate68 /min Haven Risaliti INDUCTION FURNACE OPERATOR Work Phone: NOUniversity of [place] Health CareSyjxnelvkn87-42-9713 09:49-2186BkP1% (BldA) [Mass fraction]97 %Haven Risaliti INDUCTION FURNACE OPERATOR Work Phone: [facility] HospitalEdtglbbeum85-27-1217 09:49-0500Systolic blood ojtscact882 mm[Hg]Haven Sanchez NP Work Phone: [facility] HospitalLwmeipfuwa15-56-4305 09:58-0500Body kdxogm779.6 cmJose Angel Palmer MD Work Phone: [phone] [place], [place] 2845211-22-2024 09:58-0500 Body mass index (BMI) [Ratio]37.61 kg/w4EffwaggJose Angel Palmer MD Work Phone: 1(864)[address]11-22-2024 09:58-0500 Body ucwgua668.69 kgJose Angel Palmer MD Work Phone: 1(966)41463 [address]11-22-2024 09:58-0500 Diastolic blood zggnhujj08 mm[Hg]Jose Angel Palmer MD Work Phone: 1(737)[address]11-22-2024 09:58-0500 Heart rate72 /minJose Angel Palmer MD Work Phone: 1([phone])4149395 [address] [place], [place] 2845211-22-2024 09:58-0500 Systolic blood oknzauzg971 mm[Hg]Jose Angel Palmer MD Work Phone: 1(632)[address] [place], [place] 7064609-18-2024 13:06-0400 Body kaejvz955.6 cmEbree [place] MD Work Phone: [facility]09-18-2024 13:06-0400 Body mass index (BMI) [Ratio]35.99 kg/q1BggkpqGunner Colorado MD Work Phone: [facility]09-18-2024 13:06-0400 Body zaoxpxxtuxu14.4 [degF]Gunner Colorado MD Work Phone: [facility]09-18-2024 13:06-0400 Body ofccqt066.15 kgGunner Colorado MD Work Phone: [facility]09-18-2024 13:06-0400 Diastolic blood cmdlzesf43 mm[Hg]Gunner Colorado MD Work Phone: [facility]09-18-2024 13:06-0400 Heart rate75 /Robert Colorado MD Work Phone: [phone]09-18-2024 13:06-0400 Respiratory rate18 /Robert Colorado MD Work Phone: [phone]09-18-2024 13:06-0400 SaO2% (BldA) [Mass fraction]97 %Gunner Colorado MD Work Phone: [facility]09-18-2024 13:06-0400 Systolic blood tzigwwyu616 mm[Hg]Gunner Colorado MD Work Phone: [facility]09-12-2024 10:05-0400 Diastolic blood lfxtueba09 mm[Hg]MD Richard Rodríguez Work Phone: [facility]09-12-2024 10:05-0400 Heart rate67 /minMD Richard Rodríguez Work Phone: [facility]09-12-2024 10:05-0400 Respiratory rate16 /minMD Richard Rodríguez Work Phone: [facility]09-12-2024 10:05-0400 SaO2% (BldA) [Mass fraction]98 %MD Richard Rodríguez Work Phone: [facility]09-12-2024 10:05-0400 Systolic blood rpurcrgw942 mm[Hg]MD Richard Rodríguez Work Phone: [facility]09-12-2024 07:56-0400 Body pityuy498.64 cmMD Richard Rodríguez Work Phone: [facility]09-12-2024 07:56-0400 Body zwqlckwvotu81.4 [degF]MD Richard Rodríguez Work Phone: [facility]09-12-2024 07:56-0400 Body jnarzy325.32 kgMD Richard Rodríguez Work Phone: [facility]06-19-2024 13:29-0400 Body wjixuz209.6 cmJose Angel Palmer MD Work Phone: [facility]06-19-2024 13:29-0400 Body mass index (BMI) [Ratio]36.15 kg/p7XlcdsriJose Angel Palmer MD Work Phone: 1(095)[address] [place], [place] 7064606-19-2024 13:29-0400 Body ujfsdf941.61 kgJose Angel Palmer MD Work Phone: 1(714)[address]06-19-2024 13:29-0400 Diastolic blood syrjsmxf31 mm[Hg]Jose Angel Palmer MD Work Phone: 1(001)[address] [place], [place] 7064606-19-2024 13:29-0400 Heart rate84 /minJose Angel Palmer MD Work Phone: [phone]06-19-2024 13:29-0400 Systolic blood amscplwf355 mm[Hg]Jose Angel Palmer MD Work Phone: 1(815)730-[address] [place], [place] 7064606-18-2024 11:05-0400 Body ssovlc870.6 cmEbree [place] MD Work Phone: [facility]06-18-2024 11:05-0400 Body mass index (BMI) [Ratio]35.99 kg/y8ZnnheoGunner Colorado MD Work Phone: [facility]06-18-2024 11:05-0400 Body jsghnnpjaru64.7 [degF]Gunner Colorado MD Work Phone: [facility]06-18-2024 11:05-0400 Body .15 kgGunner Colorado MD Work Phone: [facility]06-18-2024 11:05-0400 Diastolic blood mm[Hg]Gunner Colorado MD Work Phone: 1(216)[address] [place], [place] 9030406-18-2024 11:05-0400 Heart rate83 /Robert Colorado MD Work Phone: 1(216)[address] [place], [place] 9030406-18-2024 11:05-0400 Respiratory rate16 /Robert Colorado MD Work Phone: 1(216)[address] [place], [place] 9030406-18-2024 11:05-0400 SaO2% (BldA) [Mass fraction]97 %Gunner Colorado MD Work Phone: 1(216)[address] [place], [place] 9030406-18-2024 11:05-0400 Systolic blood tcxcegav018 mm[Hg]Gunner Colorado MD Work Phone: 1(216)[address] [place], [place] 9030405-01-2024 09:40-0400 Body jygxpe902.6 cmEbree Colorado MD Work Phone: 1(216)[address] [place], [place] 9030405-01-2024 09:40-0400 Body mass index (BMI) [Ratio]37.12 kg/y3LtbfosGunner Colorado MD Work Phone: 1(216)[address] [place], [place] 9030405-01-2024 09:40-0400 Body yepcwrekoxi34.2 [degF]Gunner Colorado MD Work Phone: 1(216)[address] [place], [place] 9030405-01-2024 09:40-0400 Body gtjnur463.33 kgGunner Colorado MD Work Phone: 1(216)[address] [place], [place] 9030405-01-2024 09:40-0400 Diastolic blood bpnjonxg73 mm[Hg]Gunner Colorado MD Work Phone: 1(216)[address] [place], [place] 9030405-01-2024 09:40-0400 Heart rate89 /Robert Colorado MD Work Phone: 1(216)[address] [place], [place] 9030405-01-2024 09:40-0400 Respiratory rate20 /Robert Colorado MD Work Phone: [facility]05-01-2024 09:40-0400 SaO2% (BldA) [Mass fraction]98 %Gunner Colorado MD Work Phone: [facility]05-01-2024 09:40-0400 Systolic blood louelwko755 mm[Hg]Gunner Colorado MD Work Phone: [facility]04-24-2024 13:11-0400 Body bipiuc047.6 cmLoreto [facility]04-24-2024 13:11-0400Body mass index (BMI) [Ratio]36.48 kg/a5PcjurtLoreto [facility]04-24-2024 13:11-0400Body .51 kgLoreto [facility]04-24-2024 13:11-0400Diastolic blood gcuolqsx80 mm[Hg][facility]04-24-2024 13:11-0400 Heart rate89 /minLoreto [facility]04-24-2024 13:11-0400Systolic blood xaoepnfq137 mm[Hg][facility]04-12-2024 15:47-0400Body .7 [degF]MD Richard Rodríguez Work Phone: [facility]04-12-2024 15:47-0400 Diastolic blood oilymyqv16 mm[Hg]MD Richard Rodríguez Work Phone: [facility]04-12-2024 15:47-0400 Heart rate73 /minMD Richard Rodríguez Work Phone: [facility]04-12-2024 15:47-0400 Respiratory rate20 /minMD Richard Rodríguez Work Phone: [facility]04-12-2024 15:47-0400 SaO2% (BldA) [Mass fraction]96 %MD Richard Rodríguez Work Phone: [facility]04-12-2024 15:47-0400 Systolic blood zsczoeye891 mm[Hg]MD Richard Rodríguez Work Phone: [phone]04-12-2024 05:37-0400 Body ipogee777.7 kg Richard Rodríguez Work Phone: 1(616)177-[address] [place], [place] 4204404-11-2024 14:45-0400 Body qtnuzb456.64 cmMD Richard Rodríguez Work Phone: 1(299)[address]12-28-2023 14:30-0500 Diastolic blood wikgbyjy88 mm[Hg]MD Richard Rodríguez Work Phone: [address] [place], [place] 7593912-28-2023 14:30-0500 Heart rate80 /minMD Richard Rodríguez Work Phone: 1(269)[address]12-28-2023 14:30-0500 Respiratory rate16 /minMD Richard Rodríguez Work Phone: 1(070)[address]12-28-2023 14:30-0500 SaO2% (BldA) [Mass fraction]96 %MD Richard Rodríguez Work Phone: [facility]12-28-2023 14:30-0500 Systolic blood wrkufygo040 mm[Hg]MD Richard Rodríguez Work Phone: 1(518)819-[address] [place], [place] 4204412-28-2023 14:00-0500 Inhaled oxygen flow rate6 L/minMD Richard Rodríguez Work Phone: 1(265)695-[address] [place], [place] 4204412-28-2023 12:32-0500 Body dgrrko430.64 cmMD Richard Marcos Work Phone: [facility]12-28-2023 12:32-0500 Body mass index (BMI) [Ratio]36.6 kg/m2MD Richard Rodríguez Work Phone: [facility]12-28-2023 12:32-0500 Body yukndq046 kg Richard Rodríguez Work Phone: 1(984)287-[address] [place], [place] 4204412-28-2023 10:39-0500 Body tzkikwioafj04.2 [degF]MD Richard Rodríguez Work Phone: [facility]12-05-2023 15:48-0500 Body .6 cmJose Angel Palmer MD Work Phone: [phone]12-05-2023 15:48-0500 Body mass index (BMI) [Ratio]36.8 kg/f2OsqkrpsJose Angel Palmer MD Work Phone: 1(272)[address]12-05-2023 15:48-0500 Body sqyrbc389.42 kgJose Angel Palmer MD Work Phone: 1(965)[address]12-05-2023 15:48-0500 Diastolic blood dsccfjci16 mm[Hg]Jose Angel Palmer MD Work Phone: 1(308)[address] [place], [place] 7064612-05-2023 15:48-0500 Heart rate93 /minJose Angel Palmer MD Work Phone: [phone]12-05-2023 15:48-0500 Systolic blood mnybyfhw114 mm[Hg]Jose Angel Palmer MD Work Phone: 1(945)[address] [place], [place] 7064610-23-2023 08:28-0400 SaO2% (BldA) [Mass fraction]96 %MD Richard Rodríguez Work Phone: [facility]10-23-2023 08:12-0400 Body mmnymp303.64 cmMD Richard Rodríguez Work Phone: [facility]10-23-2023 08:12-0400 Body hjmkle69.34 kgMD Richard Rodríguez Work Phone: [facility]08-25-2023 11:18-0400 Body .64 cmRan Rodríguez Work Phone: 1(603) [phone]-Yrzag [facility] 600 DO Work Phone: 1(393) 496-752108-25-2023 11:18-0400Body mass index (BMI) [Ratio] 33.57 kg/o6Hygntl Dionicio Rodríguez Work Phone: 1(604) [phone]-OxdcqEssentia Healthwalk 600 DO Work Phone: 1(638)[phone] 11:18-0400Body surface area Derived from formula2.03 e7Rmfaev Dionicio Rodríguez Work Phone: 1(231) [phone]-DbsbuEssentia Healthwalk 600 DO Work Phone: 1([phone])[phone] 11:18-0400Body .35 kgRobert Dionicio Rodríguez Work Phone: 1(424) [phone]-OrcjySt. Gabriel HospitalMinto 600 DO Work Phone: 1(447)[phone] 11:18-0400Diastolic blood rruhhlrj78 mm[Hg] Richard Rodríguez Work Phone: 1(103) 473-3915756-7363BL-DbzarSt. Gabriel HospitalMinto 600 DO Work Phone: 1(398)[phone] 11:18-0400Heart rate84 /minRobert Dionicio Rodríguez Work Phone: 1(884) [phone]-InlopEssentia Healthwalk 600 DO Work Phone: 1(500)[phone] 11:18-0400Systolic blood cthlcyto655 mm[Hg] Richard Rodríguez Work Phone: 1(154) [phone]-JxfyrEssentia Healthwalk 600 DO Work Phone: 1(340)[phone] 11:30-0400Body rjemkz126.64 cmRobert Dionicio Rodríguez Work Phone: 1(198) [phone]-Jbiwq [place] [employer] 250 DO Work Phone: 1(879)[phone] 11:30-0400Body mass index (BMI) [Ratio] 35.67 kg/f7Nxotki Dionicio Rodríguez Work Phone: mp083-4416ET-Kkqhx [facility] 250 DO Work Phone: 1([phone])[phone]-5940 11:30-0400Body surface area Derived from formula2.09 j5Mensrx Dionicio Rodríguez Work Phone: mp290-8602JB-Mcbco [place] [employer] 250 DO Work Phone: 1(572) 751-933706-27-2023 11:30-0400Body .25 kgRichard Rodríguez Work Phone: mp010-9183QZ-Tpzxs [place] [employer] 250 DO Work Phone: 1(249) 910-846106-27-2023 11:30-0400Diastolic blood opetcppq13 mm[Hg] Richard Rodríguez Work Phone: mp379-0262IG-Yhelv [place] [facility] 250 DO Work Phone: 1(153) 655-408306-27-2023 11:30-0400Heart rate82 /minRichard Rodríguez Work Phone: mp018-8987HJ-Sxgix [place] [employer] 250 DO Work Phone: 1(872) 849-771306-27-2023 11:30-0400Systolic blood mm[Hg] Richard Rodríguez Work Phone: 1(335) [phone]-Dtfao [place] [employer] 250 DO Work Phone: 1(786) 191-892106-12-2023 15:05-0400Body .64 cmRoberjerry Rodríguez Work Phone: mp599-0971NH-Rlrix [place] [employer] Pal DO Work Phone: 1(421) 240-884506-12-2023 15:05-0400Body mass index (BMI) [Ratio] 36.15 kg/h7CmvanbRichard Rodríguez Work Phone: mp161-5130BF-Zguvr [place] [employer] 250 DO Work Phone: 1(473) 284-927406-12-2023 15:05-0400Body surface area Derived from formula2.1 j2FafmgqRichard Rodríguez Work Phone: mp309-3019YX-Ilpyk [place] [employer] 250 DO Work Phone: 1(685) 178-380506-12-2023 15:05-0400Body tapnfb839.61 kgRichard Rodríguez Work Phone: mp444-9239IT-Olqut [place] [employer] 250 DO Work Phone: 1(952) 726-689806-12-2023 15:05-0400Diastolic blood mqlufhxw45 mm[Hg] Richard Rodríguez Work Phone: mp163-3337EW-Ctdlx [facility] 250 DO Work Phone: 1(968) 329-541206-12-2023 15:05-0400Heart rate83 /minRobkhloe Rodríguez Work Phone: mp978-3854BW-Cbfhm [place] [facility]Rose[facility] 250 DO Work Phone: 1(607) 989-130006-12-2023 15:05-0400Systolic blood vpsskaqt105 mm[Hg] Richard Rodríguez Work Phone: mp906-1360IH-Rcegj [place] [facility] 250 DO Work Phone: 1(752) 710-147505-04-2023 14:00-0400Body heightDatorin Kemp Other [employer] Other 05-04-2023 14:00-0400Body mass index (BMI) [Ratio] 36.65 kg/m2Eric Kemp Other [employer] Other 05-04-2023 14:00-0400Body .14 kgEric Kemp Other [employer] Other 05-04-2023 14:00-0400Diastolic blood zceehsit18 mm[Hg] Eric Kemp Other [employer] Other 05-04-2023 14:00-0400Systolic blood idzkuztt208 mm[Hg] Eric Kemp Other [employer] Other 04-19-2023 09:25-0400Diastolic blood chqtsyhi32 mm[Hg] MD Richard Rodríguez Work Phone: [facility]04-19-2023 09:25-0400 Heart rate73 /minMD Richard Rodríguez Work Phone: [facility]04-19-2023 09:25-0400 Respiratory rate14 /minMD Richard Rodríguez Work Phone: [facility]04-19-2023 09:25-0400 SaO2% (BldA) [Mass fraction]97 %MD Richard Rodríguez Work Phone: [facility]04-19-2023 09:25-0400 Systolic blood brqivfwb827 mm[Hg]MD Richard Rodríguez Work Phone: [address] [place], [place] 7593904-19-2023 07:32-0400 Body .64 cmWY Richard Rodríguez Work Phone: 1(640)[address]04-19-2023 07:32-0400 Body mass index (BMI) [Ratio]38 kg/m2MD Richard Rodríguez Work Phone: [facility]04-19-2023 07:32-0400 Body dcdmuu867 kgMD Richard Rodríguez Work Phone: [facility]04-19-2023 06:30-0400 Body ebjeqvlzsph37.3 [degF]MD Richard Rodríguez Work Phone: [facility]04-04-2023 11:20-0400 Body .64 cmRobert Dionicio Rodríguez Work Phone: 1(691) [phone]-Jugrp [facility] 250 DO Work Phone: 1(902) 144-979704-04-2023 11:20-0400Body mass index (BMI) [Ratio] 38.09 kg/u8PxmxxkRichard Rodríguez Work Phone: 1(812) [phone]-Fbgta [facility] 250 DO Work Phone: 1(624) 217-262704-04-2023 11:20-0400Body surface area Derived from formula2.15 t0AbbnxsRichard Rodríguez Work Phone: 1(964) [phone]-Etqkj [facility] [address] DO Work Phone: 1(368) 300-911004-04-2023 11:20-0400Body jwndfi470.05 kgRichard Rodríguez Work Phone: [phone]-Agyna [place] [employer] 250 DO Work Phone: 1(607) 246-116004-04-2023 11:20-0400Diastolic blood egmeknff44 mm[Hg] Richard Rodríguez Work Phone: mp152-9921HJ-Flwhq [place] [facility] 250 DO Work Phone: 1(274) 768-513504-04-2023 11:20-0400Heart rate86 /minRobkhloe Rodríguez Work Phone: mp001-2343XU-Lppqe [place] [employer] 250 DO Work Phone: 1(719) 448-462304-04-2023 11:20-0400Systolic blood nlfkycol078 mm[Hg] Richard Rodríguez Work Phone: mp482-7208CR-Lrwnw [place] [facility] 250 DO Work Phone: 1(241) 236-317103-21-2023 14:20-0400Body heightDatorin Kemp Other [employer] Other 03-21-2023 14:20-0400Body mass index (BMI) [Ratio] 36.18 kg/m2Datorin Kemp Other [employer] Other 03-21-2023 14:20-0400Body .78 kgDatorin Kemp Other [employer] Other 03-21-2023 14:20-0400Diastolic blood jizxcynz83 mm[Hg] Eric Kemp Other [employer] Other 03-21-2023 14:20-0400Systolic blood yjkmkpzw312 mm[Hg] Eric Kemp Other [employer] Other 02-02-2023 14:15-0500Diastolic blood fuqpqvia71 mm[Hg] MD Richard Rodríguez Work Phone: [facility]02-02-2023 14:15-0500 Heart rate79 /minMD Richard Rodríguez Work Phone: [facility]02-02-2023 14:15-0500 Systolic blood ophcchhd388 mm[Hg] Richard Marcos Work Phone: [facility]02-02-2023 10:40-0500 Body heightEric Kemp Other [employer] Other 02-02-2023 10:40-0500Body mass index (BMI) [Ratio] 36.18 kg/m2Eric Kemp Other [employer] Other 02-02-2023 10:40-0500Body bqwogm413.78 kgDatorin Kemp Other [employer] Other 02-02-2023 10:40-0500Diastolic blood neswdoqj53 mm[Hg] Eric Kemp Other [employer] Other 02-02-2023 10:40-0500Systolic blood diajnrdq112 mm[Hg] Eric Kemp Other [employer] Other 07-07-2022 12:00-0400Body heightDavid Hykes Other [employer] Other 07-07-2022 12:00-0400Body mass index (BMI) [Ratio] 41.34 kg/q0Btjdl Hykes Other [employer] Other 07-07-2022 12:00-0400Body mlccyd491.75 kgDavid Hykes Other [employer] Other 03-18-2022 10:16-0400Body .64 cmRan Rodríguez Work Phone: 1(809) [phone]-Recas [facility] 250 DO Work Phone: 1(817) 802-528203-18-2022 10:16-0400Body mass index (BMI) [Ratio] 38.41 kg/i9KjuyntRichard Rodríguez Work Phone: mp320-8064HU-Clbnn [facility] 250 DO Work Phone: 1(739) 851-158403-18-2022 10:16-0400Body surface area Derived from formula2.15 b3OtwqwtRichard Rodríguez Work Phone: mp767-4371ZF-Malbj [facility] 250 DO Work Phone: 1(551) 937-391203-18-2022 10:16-0400Body ozuzvr780.96 kgRichard Rodríguez Work Phone: mp782-7047PK-Awwjh [facility] 250 DO Work Phone: 1(596) 412-590003-18-2022 10:16-0400Diastolic blood nkgdlzag73 mm[Hg] Richard Rodríguez Work Phone: mp636-6700NJ-Qkgun [facility] 250 DO Work Phone: 1(595) 358-247303-18-2022 10:16-0400Heart rate85 /minRichard Rodríguez Work Phone: mp593-3158RE-Majgx [facility] 250 DO Work Phone: 1(193) 465-817803-18-2022 10:16-0400Systolic blood edosslag539 mm[Hg] Richard Rodríguez Work Phone: 1(469) [phone]-LcbgwPer[facility] 250 DO Work Phone: Encounters Encounter DateEncounter TypeCare ProviderFacilityStart: 12-04-2024 End: 50-28-2172Fwpyimcwtr hospital visit by physicianCarol [address]Comment on above:Persistent atrial fibrillation (Multi)Start: 12-04-2024 End: 24-21-1685pxueamjziqDOHCFSJD B [facility]iltontart: 11-27-2024 End: 98-13-4748wgddnejduwRxyfwo Hill MD Work Phone: [facility] Work Phone: Start: 11-27-2024 End: 87-14-6655Crqkhna encounter procedureJada Jono [facility] Work Phone: Start: 11-05-2024 End: 84-41-7281pqthhntzugOcsulu Hill MD Work Phone: [facility] Work Phone: Start: 11-05-2024 End: 24-10-9853Bqjdazo encounter procedureJaberonica Jono [facility] Work Phone: Start: 10-24-2024 End: 53-59-7769iybqmpetllTpcspi Hill MD Work Phone: [facility] Work Phone: Start: 10-24-2024 End: 79-77-1723Fbfaifn encounter procedureDestin Michelle MD-[facility] Work Phone: Start: 10-18-2024 End: 92-91-7989Ithkmy outpatient visit 25 minutesSumyranda SHORE Work Phone: [facility] Internal MedicineComment on above:Type 2 diabetes mellitus with diabetic neuropathy, with long-term current use of insulin (HCC) (Primary Dx); Presence of Watchman left atrial appendage closure device; Lumbar spondylosisStart: 10-18-2024 End: 49-61-8771cstoguyilsCGTCEC M WORKMANNot AvailableStart: 10-18-2024 End: 21-71-6639obeisnmdjrSsalpx Hill MD Work Phone: [facility] Work Phone: Start: 10-18-2024 End: 51-84-0556Qnvidjs encounter procedureJada Jono [facility] Work Phone: Start: 10-16-2024 End: 32-03-7465vpxmbyuyclHbtgai HillFacility:[facility] Start: 09-63-8651Tta-patient / Non-visitDestin Michelle MD-[facility] Work Phone: Start: 10-09-2024 End: 30-14-4307Zcsbmy outpatient visit 25 minutesJose Angel Palmer MD Work Phone: [facility] on above:Persistent atrial fibrillation (Multi) (Primary Dx); Mixed hyperlipidemia; History of cardiac radiofrequency ablation (RFA); Essential hypertension; Typical atrial flutter (Multi); Shortness of breath; Type 2 diabetes mellitus without complication, with long-term current use of insulin; Anticoagulated; BMI 35.0-35.9,adult; Former smoker; Presence of Watchman left atrial appendage closure deviceStart: 10-09-2024 End: 19-33-8434qnzopmacjqBPVXVCHOlean General Hospital AmbulatoryStart: 10-04-2024 End: 46-55-2994xmyppxoquuTlxrgi Hill MD Work Phone: [facility] Work Phone: Start: 10-04-2024 End: 21-10-5433Tnldftk encounter procedureMarcoEtelvina Orellanaaga [facility] Work Phone: Start: 10-03-2024 End: 16-75-6845nqngmrcdyvNcckgy Hill MD Work Phone: [facility] Work Phone: Start: 10-03-2024 End: 00-25-6391Ckhfoao encounter procedureDestin Michelle MD-[facility] Work Phone: Start: 09-26-2024 End: 59-54-4775Ylhlfjpjr Result EncounterGeneric External Data ProviderNOMS External Department UnsolicitedStart: 09-26-2024 End: 54-71-3906Rotpabsml Result EncounterGeneric External Data ProviderNOMS External Department UnsolicitedStart: 09-26-2024 End: 49-22-7765Ihufdxv encounter procedureJavan Magallanes MD Work Phone: [facility] Work Phone: Start: 09-26-2024 End: 27-36-2637Kzmnxriswhoys examination doneJavan Magallanes MD Work Phone: [facility] Work Phone: Start: 09-26-2024 End: 20-50-2709Athgaxsvvp hospital visit by Irma Magallanes MD Work Phone: [facility]Comment on [facility]:Persistent atrial fibrillation (Multi) (Primary Dx); Encounter for examination for normal comparison and control in clinical research program; Pre-op exam; Unspecified atrial fibrillation (Multi); Post-operative stateStart: 23-83-1546Mwfzxwqeou and management of inpatient JAVANProtestant Hospitaltart: 09-19-2024 Patient encounter procedureJAVAN [place] Work Phone: Start: 09-17-2024 End: 09-18-7343rjdoicqchfYHSPZG M WORKMANNot AvailableStart: 09-14-2024 End: 51-27-3307Efzvrdzzzg hospital visit by Audrey Michael[address] StreetComment on above:Persistent atrial fibrillation (Multi); AnticoagulatedStart: 09-14-2024 End: 59-50-2372kajzdddsfzBKEUDOALWilson Healthtart: 09-14-2024 End: 59-92-7936Qerxviqmo Result EncounterGeneric External Data ProviderNOMS External Department UnsolicitedStart: 09-14-2024 End: 74-26-6293Dcpxdghxt Result EncounterGeneric External Data ProviderNOMS External Department UnsolicitedStart: 09-11-2024 End: 04-26-6445Lhixhe outpatient visit 25 minutesSumyranda SHORE Work Phone: [facility] IMComment on above:Type 2 diabetes mellitus with diabetic neuropathy, with long-term current use of insulin (HCC) (Primary Dx); Essential hypertension ; Mixed hyperlipidemia ; Paroxysmal atrial fibrillation (HCC); Other iron deficiency anemia; Rheumatoid arthritis involving multiple sites with positive rheumatoid factor (HCC); Vitamin B12 deficiency; Primary insomnia; Severe obesity (BMI 35.0-39.9) with comorbidity (CMS-HCC); BMI 36.0-36.9,adult; Medicare annual wellness visit, subsequent; ACP (advance care planning); Chronic bilateral low back pain without sciatica; Weakness of both lower extremities; Lumbar spondylosis; Need for vaccination with 20-polyvalent pneumococcal conjugate vaccineStart: 09-11-2024 End: 68-22-5968Zeescvg encounter procedureSwhitney SHORE Work Phone: [facility] HealthcareStart: 09-11-2024 End: 87-43-4183mpuemmtxdrGUTJLN M WORKMANN AvailableStart: 09-10-2024 End: 43-10-5338tvisklzmxbLxxccu Hill MD Work Phone: [facility] Work Phone: Start: 09-10-2024 End: 16-10-6565Vebxsnl encounter procedureJada De La Cruz [facility] Work Phone: Start: 09-07-2024 End: 23-82-1720Rjweoy outpatient [address] Magallanes MD Work Phone: [facility] CenterComment on above:Persistent atrial fibrillation (Multi) (Primary Dx); Typical atrial flutter (Multi); Essential hypertension; Mixed hyperlipidemia; Anticoagulated; Type 2 diabetes mellitus without complication, with long-term current use of insulin; Former smoker; BMI 35.0-35.9,adult; Other porphyria; Unspecified porphyria (Multi)Start: 09-07-2024 End: 49-27-1095cyjlssejbcFMTSGECZ B ESTEVESClinton [facility] Hospital AmbulatoryStart: 08-29-2024 End: 56-10-3340ouxnbqpnrtZtzfyn Hill MD Work Phone: [facility] Work Phone: Start: 08-29-2024 End: 61-80-0620Efwewfs encounter procedureJada De La Cruz [facility] Work Phone: Start: 08-15-2024 End: 57-32-6650Uosxrod encounter procedureMaximiliano Belle MD-[address] Work Phone: Start: 08-15-2024 End: 34-59-4423nnsggbycfqOzgcyl Hill MD Work Phone: [facility] Work Phone: Start: 08-14-2024 End: 22-67-6701uupkthrhnfNUGFDNPiedmont Eastside [facility] Campus AmbulatoryStart: 08-14-2024 End: 81-37-5109Jwvdmp outpatient visit 15 minutesGunner Colorado MD Work Phone: uh [facility] CenterComment on above:Persistent atrial fibrillation (Multi) (Primary Dx)Start: 08-13-2024 End: 93-60-3395Hssmvbg encounter procedureJada Jono [facility] Work Phone: Start: 59-97-7127Vzm-patient / Non-visitCatherine L Ly DO-[facility] Work Phone: Start: 08-06-2024 End: 94-14-7246Izgpwrakc to same day surgery centerCatherine L Ly DO-[facility] Work Phone: Start: 08-06-2024 End: 48-55-0961eyiagefvycAfnkcn HillFacility:[facility] Start: 08-01-2024 End: 48-36-0257Jqjaxa outpatient visit 25 minutesJose Angel Palmer MD Work Phone: uh [facility] StokesComment on above:Persistent atrial fibrillation (Multi) (Primary Dx); Mixed hyperlipidemia; History of cardiac radiofrequency ablation (RFA); Essential hypertension; Typical atrial flutter (Multi); Anticoagulated; Shortness of breath; BMI 37.0-37.9, adult; Former smokerStart: 08-01-2024 End: 95-23-9145mvhdgrcsbkWWINVFJOlean General Hospital AmbulatoryStart: 07-31-2024 End: 33-34-2550Uorgglr encounter procedureMarilynn Wharton DPM Work Phone: noms [facility] PODIATRYComment on above:Onychomycosis (Primary Dx); Corns and callosities; Bilateral foot pain; Bursitis of both feetStart: 07-31-2024 End: 16-61-9278molitvzfyyVNFMSLEZU H SMITHNot AvailableStart: 07-31-2024 End: 89-54-1389Zseoid flowsJenni Wharton DPM Work Phone: noms [facility] PODIATRYStart: 07-31-2024 End: 30-37-6724Oznsnd Ailin Wharton DPM Work Phone: noms [facility] PODIATRYStart: 07-29-2024 End: 90-23-9267Bsdbktboy encounterRobkhloe Rodríguez MD Work Phone: n[facility] IMStart: 07-24-2024 End: 60-07-8065jhjnxktyniLsaphm Hill MD Work Phone: [facility] Work Phone: Start: 07-24-2024 End: 56-56-9119Zkzsdsw encounter procedureRichard Rodríguez MD Work Phone: [facility] Work Phone: Start: 07-18-2024 End: 97-45-8645Cicwrai encounter Yesica Rodríguez MD Work Phone: [facility] [address] Work Phone: Start: 07-18-2024 End: 55-85-7358dfylhectcfRvjear Hill MD Work Phone: [facility] Work Phone: Start: 07-18-2024 End: 61-32-9699bdijehtjzpTaherwbtn [facility] Work Phone: Start: 07-18-2024 End: 78-39-2174Lziflwj encounter procedureArmani Physician GroupS[facility] Work Phone: Start: 07-10-2024 End: [id number] encounter procedureArmani Physician [facility] Work Phone: Start: 06-22-2024 End: 96-35-7015tpgomznsjtARWXUGW L POULOSNot AvailableStart: 06-18-2024 End: 88-14-9733exahmndbenQHJCSGC L POULOSNot AvailableStart: 06-11-2024 End: 35-33-5095uprqoiobjrMddvhf Hill MD Work Phone: [facility] Work Phone: Start: 06-11-2024 End: 68-30-0103Zufgxqo encounter procedureRichard Rodríguez MD Work Phone: [facility] [facility] Work Phone: Start: 06-05-2024 End: 24-05-4804Kpxfbu outpatient visit 15 minutesNatalie A Felter INSPECTOR MECHANICAL-REGULATORY CONSULTANT Work Phone: noms SWS DERMComment on above:Other atopic dermatitis; Inflamed skin tag; Localized tendernessStart: 06-05-2024 End: 53-13-9174lapxytzaafFVTIZCY A FELTERNot AvailableStart: 06-05-2024 End: 92-96-0451Hysaci flowsheetNatalie A Felter INSPECTOR MECHANICAL-REGULATORY CONSULTANT Work Phone: noms SWS DERMStart: 06-05-2024 End: 85-73-0978Vhnwfd flowsheetNatalie A Felter INSPECTOR MECHANICAL-REGULATORY CONSULTANT Work Phone: noms SWS DERMStart: 05-14-2024 End: 44-70-1441jhwhtrzykaXkkreu Hill MD Work Phone: [facility] Work Phone: Start: 05-14-2024 End: 43-98-6240Tsqvgas encounter procedureRichard Rodríguez MD Work Phone: [facility] Work Phone: Start: 04-26-2024 End: 16-94-7936oztcjatxqgDDFCWXUIF H SMITHNot AvailableStart: 04-26-2024 End: 36-45-6248Pdjcry flowsJenni Wharton DPM Work Phone: NONM SWS PODIATRYStart: 04-26-2024 End: 33-89-3861Sfznlt flowsJenni Wharton DPM Work Phone: NOKW SWS PODIATRYStart: 04-19-2024 End: 05-77-0652Ckmgweo encounter procedureRichard Rodríguez MD Work Phone: [facility] [address] Work Phone: Start: 04-19-2024 End: 73-68-7341lmatayjnmgLfuiwc Hill MD Work Phone: [facility] Work Phone: Start: 04-16-2024 End: 16-96-4724Ywxpro flowsheetGina R Risaliti INDUCTION FURNACE OPERATOR Work Phone: NOMS SWS IMStart: 04-16-2024 End: 03-57-5466Itktiy flowsheetGina R Risaliti INDUCTION FURNACE OPERATOR Work Phone: NOMS SWS IMStart: 04-16-2024 End: 99-66-3519Xoobbi outpatient visit 25 minutesMichele Dionicio Hedrickos INDUCTION FURNACE OPERATOR Work Phone: NOMS SWS IMComment on above:Right hip pain (Primary Dx); Other porphyria (CMS/HCC); Essential hypertension (CMS/HCC); Osteoarthritis of right hip, unspecified osteoarthritis typeStart: 04-16-2024 End: 06-47-0983fokxfehizoKNVUBNJ L POULOSNot AvailableStart: 04-09-2024 End: 36-74-1904xyxmhogovbBtarul Hill MD Work Phone: [facility] Work Phone: Start: 04-09-2024 End: 36-85-3300Iepythc encounter procedureRichard Rodríguez MD Work Phone: [facility] Physician [facility] Work Phone: Start: 03-29-2024 End: 07-86-8634lxtdawwkbqZeoenf Hill MD Work Phone: [facility] Work Phone: Start: 03-29-2024 End: 69-52-4387Ugpcmub encounter procedureRichard Rodríguez MD Work Phone: [facility] Work Phone: Start: 03-27-2024 End: 58-16-1123Wnhrew flowsheetMarshall Brink PTANOMS CI PTStart: 03-27-2024 End: 92-88-3282Anmiwk flowsheetMarshall Brink PTANOMS CI PTStart: 03-27-2024 End: 61-72-0554sfgymqankwEqgjnjxk Brink PTANOMS CI PTComment on above:Weakness of hip (Primary Dx); Severe obesity (BMI 35.0-39.9) with comorbidity (CMS/HCC); Low back pain, unspecified back pain laterality, unspecified chronicity, unspecified whether sciatica presentStart: 03-23-2024 End: 14-20-9143Hrcfbq flowsheetSammantha Bradley PTNOMS CI PTStart: 03-23-2024 End: 33-74-9678Wxyuya flowsheetSammantha Bradley PTNOMS CI PTStart: 03-23-2024 End: 43-45-2235xgokopjbftLatahuolm Bradley PTNOMS CI PTComment on above: Weakness of hip (Primary Dx); Severe obesity (BMI 35.0-39.9) with comorbidity (CMS/HCC); Low back pain, unspecified back pain laterality, unspecified chronicity, unspecified whether sciatica presentStart: 03-07-2024 End: 54-86-6921Nnciod outpatient visit 25 minutesHaven Sanchez NP Work Phone: NOMS SWS IMComment on above:Essential hypertension (CMS/HCC) (Primary Dx); Type 2 diabetes mellitus with diabetic neuropathy, unspecified (CMS/HCC); Paroxysmal atrial fibrillation (CMS/HCC); Mixed hyperlipidemia (CMS/HCC); Rheumatoid arthritis involving multiple sites with positive rheumatoid factor ([facility]/HCC); Iron deficiency anemia, unspecified iron deficiency anemia type; Moderate persistent asthma without complication ([facility]/HCC); Gastroesophageal reflux disease without esophagitis; Benign prostatic hyperplasia without urinary obstruction; Primary insomnia; Vitamin B12 deficiency; Elevated PSA; Chronic diarrhea; Rash; Morbid (severe) obesity due to excess calories ([facility]); BMI 36.0-36.9,adultStart: 03-07-2024 End: 15-01-3248wgctluyxosLBJS R RISALITINot AvailableStart: 03-01-2024 End: 80-91-4970kwxdpxppxyOanrzh Hill MD Work Phone: [facility] Work Phone: Start: 03-01-2024 End: 31-99-3015Tkpjwwi encounter procedureRichard Rodríguez MD Work Phone: [facility] Physician [facility] Work Phone: Start: 01-30-2024 End: 87-97-6771Gkgftsy encounter procedureRichard Rodríguez MD Work Phone: [facility] Physician [facility] Work Phone: Start: 01-17-2024 End: 38-10-1204Pucssaw encounter procedureRichard Rodríguez MD Work Phone: [facility] [address] Work Phone: Start: 01-17-2024 End: 28-84-9942gnoqyopijiKjamfhl MorrowFacility:[facility] Medical Centertart: 01-13-2024 End: 90-19-4133nyizsqzhloKCVWWBJOlean General Hospital AmbulatoryStart: 01-13-2024 End: 04-16-8741Vwspcr outpatient new 45 minutesJose Angel Palmer MD Work Phone: uh [facility] StokesComment on above:Persistent atrial fibrillation (Multi) (Primary Dx); Typical atrial flutter (Multi); History of cardiac radiofrequency ablation (RFA); Mixed hyperlipidemia; Essential hypertension; Anticoagulated; Shortness of breath; Former smoker; BMI 37.0-37.9, adultStart: 01-05-2024 End: 88-53-2764egjqvlrjsbEehctj Hill MD Work Phone: [facility] Work Phone: Start: 01-05-2024 End: 23-07-8342Gttynbs encounter procedureRichard Rodríguez MD Work Phone: [facility] Work Phone: Start: 12-15-2023 End: 55-17-0775ijbnwdswoiIV Richard Marcos Work Phone: [facility] Work Phone: Start: 12-15-2023 End: 69-26-0625Njjdzad encounter procedure Richard Marcos Work Phone: [facility] Work Phone: Start: 11-24-2023 End: 10-60-0004tlbnazmzcvMC Richard Marcos Work Phone: [facility] Work Phone: Start: 11-24-2023 End: 68-39-4448Qdpujmg encounter procedureMD Richard Rodríguez Work Phone: [facility] Work Phone: Start: 19-94-3475Vyc-patient / Non-visitMD Richard Rodríguez Work Phone: [facility] Gastroenterology Work Phone: Start: 11-09-2023 End: 74-67-0907Xwvqgc outpatient visit 15 minutesGunner Colorado MD Work Phone: uh [facility] CenterComment on above: Persistent atrial fibrillation (Multi) (Primary Dx)Start: 11-09-2023 End: 21-89-3494imrviesqsmYJ Richard Rodríguez Work Phone: [facility] Work Phone: Start: 11-09-2023 End: 72-25-4643Lzvlkek encounter procedureMD Richard Rodríguez Work Phone: [facility] Work Phone: Start: 11-03-2023 End: 57-08-6372Wzqscytsy to same day surgery centerWY Richard Rodríguez Work Phone: [facility]-Digestive [facility] Work Phone: Start: 11-03-2023 End: 43-34-1714tqmpzzzcagYT Richard Rodríguez Work Phone: [facility] Work Phone: Start: 10-27-2023 End: 03-44-0274yqvhqysvzkIG Richard Rodríguez Work Phone: [facility] Work Phone: Start: 10-27-2023 End: 32-34-4113Topgohy encounter procedureMD Richard Rodríguez Work Phone: [facility] Work Phone: Start: 10-26-2023 End: 63-03-6277Hxqkjrjww encounterMarirene Thurston PTANOMS CI PTStart: 10-25-2023 End: 66-56-5156Zdcncer encounter procedureMD Richard Rodríguez Work Phone: [facility] [address] Work Phone: Start: 10-25-2023 End: 15-63-8679obmbmcqbsxJT Richard Rodríguez Work Phone: [facility] Work Phone: Start: 10-18-2023 End: 90-77-7069Jrelue Nadiya Alexandre PT Work Phone: noms CI PTStart: 10-18-2023 End: 74-39-6572Rifsyp Nadiya T Bettie PT Work Phone: noms CI PTStart: 10-18-2023 End: 97-57-4028aetuaxqzdgUwqzhj T Bettie PT Work Phone: noms CI PTComment on above:Chronic neck pain (Primary Dx)Start: 09-29-2023 End: 00-69-1011awhssjrpxhTN Richard Rodríguez Work Phone: [facility] Work Phone: Start: 09-29-2023 End: 01-03-9943Wmumpwk encounter procedureMD Richard Rodríguez Work Phone: [facility] Work Phone: Start: 09-01-2023 End: 20-43-8496qcmazwmeobPN Richard Rodríguez Work Phone: [facility] Work Phone: Start: 09-01-2023 End: 96-41-8685Vkksavn encounter procedureMD Richard Rodríguez Work Phone: [facility] Work Phone: Start: 08-30-2023 End: 51-57-5794lcvukibwhbPS Richard Rodríguez Work Phone: [facility] Work Phone: Start: 08-30-2023 End: 33-88-9699Kkvkwnz encounter procedureMD Richard Rodríguez Work Phone: [facility] [address] Work Phone: Start: 08-10-2023 End: 71-78-8005Unqwfk outpatient visit 25 minutesMorefugio Palmer MD Work Phone: uh FirelandsComment on above:Typical atrial flutter (Multi) (Primary Dx); Persistent atrial fibrillation (Multi); Essential hypertension; Mixed hyperlipidemia; Anticoagulated; BMI 36.0-36.9,adult; Rheumatoid arthritis, involving unspecified site, unspecified whether rheumatoid factor present (Multi); Shortness of breathStart: 08-09-2023 End: 13-35-5305Pmvbib outpatient visit 25 minutesGunner Colorado MD Work Phone: [facility]: Persistent atrial fibrillation (Multi) (Primary Dx)Start: 08-03-2023 End: 14-04-6389qsblekfydnDJ Richard Rodríguez Work Phone: [facility] Work Phone: Start: 08-03-2023 End: 07-02-5654Slugpnv encounter procedure Richard Rodríguez Work Phone: [facility] Work Phone: Start: 07-28-2023 End: 42-80-7775tpnezwyoxiZJ Richard Rodríguez Work Phone: [facility] Work Phone: Start: 07-28-2023 End: 14-54-0587Ehqegoo encounter procedureMD Richard Rodríguez Work Phone: [facility] Work Phone: Start: 07-21-2023 End: 59-08-0499segaaxunacKE Richard Rodríguez Work Phone: [facility] Work Phone: Start: 07-21-2023 End: 22-83-6883Wjuqgjv encounter procedure Richard Rodríguez Work Phone: [facility] Physician [facility] Work Phone: Start: 07-13-2023 End: 52-29-9087modpodzejuBYRNAN [facility] Memorialtart: 07-13-2023 End: 77-69-0936Jfyxrqenwt hospital visit by physicianMary A. Alley Hospitaleim Colorado MD Work Phone: [facility] MatherComment on above: Persistent atrial fibrillation (Multi)Start: 07-12-2023 End: 20-98-0779eaaqshdlbvOO Richard Rodríguez Work Phone: [facility] Work Phone: Start: 07-12-2023 End: 23-65-7546Qkvkttn encounter procedureMD Richard Rodríguez Work Phone: [facility] Work Phone: Start: 07-06-2023 End: 85-38-4482Kbqpcfy encounter procedureMD Richard Rodríguez Work Phone: [facility] Work Phone: Start: 06-22-2023 End: 46-71-3160Ekkjcv outpatient new 60 minutesGunner Colorado MD Work Phone: [facility] HospitalComment on above: Persistent atrial fibrillation (Multi)Start: 06-15-2023 End: 53-07-0734Zppggtbqbcbr / ancillary services managementEarnestzoila Erasmo Havenwyck HospitalComment on above:Persistent atrial fibrillation (Multi)Start: 06-08-2023 End: 62-66-4867muazvthgjzRB Richard Rodríguez Work Phone: [facility] Work Phone: Start: 06-08-2023 End: 33-95-4547Frqkdvb encounter procedureMD Richard Rodríguez Work Phone: [facility] Work Phone: Start: 06-01-2023 End: 85-72-6077Ormcfxttai and management of inpatientMD Richard Rodríguez Work Phone: [facility] [place] [facility] Work Phone: Start: 05-31-2023 End: 79-64-5640fobzgwbqbqOH Richard Rodríguez Work Phone: [facility] Work Phone: Start: 05-31-2023 End: 42-87-6471Jdroser encounter procedureMD Richard Rodríguez Work Phone: [facility] [address] Work Phone: Start: 05-31-2023 End: 76-23-0295ogoyfnrziuXF Richard Rodríguez Work Phone: [facility] Work Phone: Start: 05-31-2023 End: 27-37-4530Ixrnaut encounter procedureMD Richard Rodríguez Work Phone: [facility] Work Phone: Start: 05-24-2023 End: 12-97-2987fkvnlyjrymUB Richard Rodríguez Work Phone: [facility] Work Phone: Start: 05-24-2023 End: 21-07-9700Mggrgsp encounter procedureMD Richard Rodríguez Work Phone: [facility] Work Phone: Start: 05-18-2023 End: 46-47-9329fvssvgowhcZG Richard Rodríguez Work Phone: [facility] Work Phone: Start: 05-18-2023 End: 66-78-9530Rbvxmdk encounter procedureMD Richard Rodríguez Work Phone: [facility] Work Phone: Start: 04-27-2023 End: 67-02-6435Yjtjiwu encounter procedureMD Richard Rodríguez Work Phone: [facility] Work Phone: Start: 04-06-2023 End: 72-44-6190sxlgbvljmfOY Richard Rodríguez Work Phone: [facility] Work Phone: Start: 04-06-2023 End: 02-95-3042Fnoaeof encounter procedureMD Richard Rodríguez Work Phone: [facility] Work Phone: Start: 03-21-2023 End: 36-83-2341Cnvzesgvkp RecurringMD Richard Rodríguez Work Phone: [facility] Work Phone: Start: 11-14-6538Rbejugrscc RecurringMD Richard Rodríguez Work Phone: [facility] Work Phone: Start: 03-21-2023([facility] R A/c) [facility] Repeat A/C Jada Banegass Coord[facility] Care ClinicStart: 03-21-2023 End: 05-51-5762wltqmwqjgfZO Richard Rodríguez Work Phone: [facility] [employer] Other Start: 03-08-2023([facility] R A/c) [facility] Repeat A/C Jada Banegass Coordinated Care ClinicStart: 24-89-6573Xtryugpxlb RecurringMD Richard Rodríguez Work Phone: [facility] Work Phone: Start: 03-08-2023 End: 35-12-5870jkzihquekhUD Richard Rodríguez Work Phone: [facility] Work Phone: Start: 03-08-2023 End: 67-81-6323Kishybb encounter procedureMD Richard Rodríguez Work Phone: [facility] [address] Work Phone: Start: 02-24-2023([facility] R A/c) [facility] Repeat A/CMcEtelvina Jose Coordinated Care ClinicStart: 02-24-2023 End: 63-45-8634nlvkfnkaiyBxJapid Sanner Other [employer] Other Start: 02-17-2023 End: 04-32-8511Fgcvrymsm to same day surgery centerMD Richard Rodríguez Work Phone: [facility] Main CampusStart: 02-17-2023 End: 10-96-5843dhfzueijryAK Richard Rodríguez Work Phone: [facility] Work Phone: Start: 92-03-3019Pewztyelya RecurringWY Richard Rodríguez Work Phone: [facility] Work Phone: Start: 02-07-2023([facility] R A/c) [facility] Repeat A/C Jada Benítez Coordinated Care ClinicStart: 02-07-2023 End: 18-12-2131cvpzrhrmdyCchmjwlpaz Gerber Other [employer] Other Start: 02-03-2023 End: 26-55-5187Vkbejji encounter procedureWY Richard Rodríguez Work Phone: [facility]-Pre-Surgical Testing Work Phone: Start: 01-25-2023 End: 87-46-6764Zizadb outpatient visit 25 minutesJose Angel Palmer MD Work Phone: uh [facility] StokesComment on above:Persistent atrial fibrillation (CMS/HCC) (Primary Dx); Essential hypertension; Typical atrial flutter (CMS/HCC); Mixed hyperlipidemia; Anticoagulated; Shortness of breath; Rheumatoid arthritis, involving unspecified site, unspecified whether rheumatoid factor present (CMS/HCC)Start: 01-25-2023 End: 73-10-5585fbcmpytrpcVujc Fitt Other noKaesu Buru Buru Other Start: 90-32-3496Arkjuytzd encounterDawn KoltonLegacy [facility] Coord[facility] Care ClinicStart: 12-28-2022([facility] R A/c) [facility] Repeat A/CJacstephan Banegass Coordinated Care ClinicStart: 12-28-2022 End: 43-36-4960ecbhhtlsvlMltqrtebhv Jono Other [facility] Other Start: 12-14-2022 End: 23-00-4879jjwydlbjidHN Richard Strathmere Work Phone: [facility] Work Phone: Start: 12-14-2022 End: 74-53-9170Llkhemt encounter procedureWY Richard Strathmere Work Phone: [facility] [address] Work Phone: Start: 12-13-2022 End: 15-39-2555Vnzwwxywz to same day surgery centerWY Richard Strathmere Work Phone: [facility]-Electrodiagnostics Work Phone: Start: 12-13-2022 End: 29-55-7674ybplmsmcekCY Richard Strathmere Work Phone: [facility] Work Phone: Start: 12-09-2022([facility] R A/c) [facility] Repeat A/CMcKenna Corettas Coordinated Care ClinicStart: 12-09-2022 End: 47-78-0768vewwmrquflBrMetrk Sanner Other [facility] [employer] Other Start: 70-26-4278Tzxadvwqnt RecurringWY Richard Strathmere Work Phone: [facility] Work Phone: Start: 11-25-2022([facility] R A/c) [facility] Repeat A/C Jada GerberFirelands Coordinated Care ClinicStart: 11-25-2022 End: 69-34-6058wxchvzhaykIxgf Fitt Other noKaesu Buru Buru Other Start: 90-70-8962Uezdokpwm encounterDawn [facility] Coordinated Care ClinicStart: 11-02-2022([facility] R A/c) [facility] Repeat A/CJacqueline GerberFirelands Coordinated Care ClinicStart: 11-02-2022 End: 65-56-8008xdxtaewkcjTizzptlwxu Jono Other [facility] Bur[facility] Other Start: 10-28-2022([facility] R A/c) [facility] Repeat A/NenaKenna SanagaFirelands Coordinated Care ClinicStart: 10-28-2022 End: 39-52-4146wzzyjxtdyuPtPkmwt Sanner Other [facility] Bur[employer] Other Start: 66-30-6749PTGTRUVZU, Provider: Jose Angel Palmer, Status: Pen, Time: 10:00 Moncho Rodríguez Work Phone: [phone]-YptggAppleton [facility] 600 DO Work Phone: Start: 10-27-2022 End: 97-50-6127hqeagortpxClof Fitt Other [facility] Bur[facility] Other Start: 16-53-0912Vsftpuhua encounterDawn [facility] Coordinated Care ClinicStart: 10-21-2022([facility] R A/c) [facility] Repeat A/NenaKenna SanagaFirelands Coordinated Care ClinicStart: 10-21-2022 End: 30-53-5536rsbffhdbfzZyThgyp Sanner Other [employer] Other Start: 10-20-2022 End: 04-67-6560Lxffkjs encounter procedureMD Richard Rodríguez Work Phone: [facility] [address] Work Phone: Start: 10-18-2022 End: 51-98-4273plqaywcudrDfvr Fitt Other [employer] Other Start: 67-72-1436Bermuczpe encounterDawn [facility] Coordinated Care ClinicStart: 94-68-9877Hvqohn outpatient visit 25 minutes Richard Rodríguez Work Phone: [phone]-Qpqwg [facility] [address] DO Work Phone: Start: 10-13-2022([facility] R A/c) [facility] Repeat A/CMcKenna SannerFirelands Coordinated Care ClinicStart: 10-13-2022 End: 68-89-3575niyqzcliisRiuf Fitt Other [employer] Buru Buru Other Start: 41-24-4199Dvavauqdn encounterDawn [facility] Coordinated Care ClinicStart: 09-15-2022([facility] R A/c) [facility] Repeat A/CMcKenna SannerFirelands Coordinated Care ClinicStart: 09-15-2022 End: 88-53-1174udpwfnvptcSrFkrcp Sanner Other [facility] [employer] Other Start: 08-19-2022([facility] R A/c) [facility] Repeat A/C Jada GerberFirelands Coordinated Care ClinicStart: 08-19-2022 End: 42-82-3693rbjleqytjrQajmdhbvyc [place] Other [employer] Other Start: 87-93-5204Orrvwrq encounter procedureRobkhloe Rodríguez Work Phone: [phone]-TixgnBigfork Valley HospitalHooker 250 DO Work Phone: Start: 98-72-3986Uf RenewalRobert L Marcos Work Phone: [phone]-Yebhq [facility] 250 DO Work Phone: Start: 07-27-2022 End: 07-63-9318giptkavqwgQQ Richard Rodríguez Work Phone: [facility] Work Phone: Start: 07-27-2022 End: 67-57-2124Wyzahln encounter procedureMD Richard Rodríguez Work Phone: [facility] [address] Work Phone: Start: 16-51-5322Ebwbfhfqhg RecurringMD Richard Rodríguez Work Phone: [facility] Work Phone: Start: 07-22-2022([facility] R A/c) [facility] Repeat A/C Jada Benítez Coordinated Care ClinicStart: 07-22-2022 End: 82-14-6784kigyxtuyezRhpd Marie Other [employer] Other Start: 13-97-5185Afkmrvqwn encounterDawn Rex Coordinated Care ClinicStart: 06-29-2022([facility] R A/c) [facility] Repeat A/CJdejon Benítez Coordinated Care ClinicStart: 06-29-2022 End: 87-24-8602zwqaqyglmgIckjluivnb Gerber Other [employer] Other Start: 06-24-2022 End: 00-91-4983vumlkmekfrSsvp Braun Other [employer] Other start: 93-23-4078Hkndzz follow up visit related to original pxDale ViridianaG [facility] NeurosurgeryStart: 06-17-2022([facility] R A/c) [facility] Repeat A/CJacqueline GerberFirelands Coordinated Care ClinicStart: 06-17-2022 End: 40-83-0373mjvcwhhubrGyrcoiylub Jono Other [employer] Other Start: 66-22-9798Axnwjvlvt encounterRobert Dionicio Rodríguez Work Phone: [phone]-Orpbu [facility] 250 DO Work Phone: Start: 06-09-2022 End: 37-72-3491Wmtowjbbc to same day [facility] CtrStart: 06-09-2022 End: 27-13-0179yvzmqldeepDiof Fitt Other noKaesu Buru [employer] Other Start: 51-19-9925Dittblgjb encounterDawn [facility] Coordinated Care ClinicStart: 06-03-2022([facility] R A/c) [facility] Repeat A/CJacqueline GerberFirelands Coordinated Care ClinicStart: 06-03-2022 End: 69-40-5518lvlqefgkanWlvgxuvcqa [place] Other [employer] Other Start: 06-02-2022 End: 43-19-4634cixpfbctbdCV Richard Rodríguez Work Phone: [facility] Work Phone: Start: 06-02-2022 End: 38-00-5071Vtejcmf encounter procedureMD Richard Rodríguez Work Phone: [facility] Sxw-Jvz-Bnmlamua Testing Work Phone: Start: 05-31-2022 End: 04-44-2762jhumyprrlqBzlv Fitt Other [employer] Other Start: 05-39-4612Amfrtlbod encounterDawn [facility] Coordinated Care ClinicStart: 05-11-2022([facility] R A/c) [facility] Repeat A/CDawn Fitt [facility] [facility] ClinicStart: 05-11-2022 End: 53-40-5210crnazyvjiiXmib Fitt Other [employer] Buru Buru Other Start: 32-92-6737Enqcba outpatient visit 40 minutes [facility] NeurosurgeryStart: 95-19-0607Xogaqzcuhs RecurringMD Richard Rodríguez Work Phone: [facility] Ctr-Center for Coordinated Care Work Phone: Start: 04-12-2022([facility] R A/c) [facility] Repeat A/C Jada WarnerPrema Coordinated Care ClinicStart: 04-12-2022 End: 68-16-0789qucqwwhppzOgbvslnysa Jono Other [facility] Buru Buru Other Start: 04-08-2022 End: 72-25-3791fxhqgbphwkLnoc Kemp Other noKaesu Buru Buru Other start: 97-75-7278Mbygtszqk encounterDale [facility] NeurosurgeryStart: 03-30-2022 End: 03-34-7992Dpchtqo encounter procedureMD Richard Rodríguez Work Phone: [facility] Ctr-Lab [place] Work Phone: Start: 56-95-7965Kdbxym outpatient new 30 minutesDale [facility] NeurosurgeryStart: 03-25-2022 End: 51-44-2520rjqtufoydhUC Richard Rodríguez Work Phone: [facility] Ctr Work Phone: Start: 03-25-2022 End: 33-31-4758Xkpbfxj encounter procedureMD Richard Rodríguez Work Phone: [facility] Ctr-Electrodiagnostics Work Phone: Start: 03-16-2022 End: 66-58-4125ttufjajahxAV Richard Rodríguez Work Phone: [facility] Ctr Work Phone: Start: 03-16-2022 End: 66-39-5111Khaesmo encounter procedureMD Richard Rodríguez Work Phone: [facility] Ctr-MRI [place] Work Phone: Start: 53-27-1207Reimtswrbz RecurringMD Richard Rodríguez Work Phone: [facility] Ctr-[facility] Care Work Phone: Start: 03-15-2022([facility] R A/c) [facility] Repeat A/C Jada Makenzies Coord[facility] Care ClinicStart: 03-15-2022 End: 61-81-3288sczobrektuTdwqjjcezp Jono Other [employer] Other Start: 02-16-2022 End: 81-13-0920lmyakylaqrBvbc Fitt Other [employer] Other Start: 36-86-8045Zdaqnignr encounterDawn [facility] Coordinated Care ClinicStart: 02-11-2022([facility] R A/c) [facility] Repeat A/CJacqueline GerberFirelands Coordinated Care ClinicStart: 02-11-2022 End: 71-13-8114iscnioxpgbKcrphulcsk Jono Other [employer] Other Start: 01-25-2022 End: 90-62-5561kcnpnadvsuPisk Fitt Other [employer] Other Start: 15-89-8586Vqdelnnkg encounterDawn [facility] Coordinated Care ClinicStart: 01-19-2022([facility] R A/c) [facility] Repeat A/CAaron LePoireFirequincy valley medical center Coordinated Care ClinicStart: 01-19-2022 End: 14-97-8965fedoozfsyfZynvf LePoire Other [employer] Other Start: 12-21-2021([facility] R A/c) [facility] Repeat A/CDawn Fitt [facility] Care ClinicStart: 12-21-2021 End: 65-78-8617ypnjqbtlpwIjqc Fitt Other [employer] Other Start: 11-30-2021([facility] R A/c) [facility] Repeat A/CDawn Fitt [employer] Care ClinicStart: 11-30-2021 End: 59-80-5870wkufzdmftaQjay Fitt Other [employer] Other Start: 11-02-2021([facility] R A/c) [facility] Repeat A/CDawn Fitt [facility] Coord[facility] Care ClinicStart: 11-02-2021 End: 17-67-8936sbnujadhnhEjqn Fitt Other [employer] Other Start: 09-24-2021 End: 82-03-4518Prrofdb encounter procedureMD [facility] Work Phone: [facility] Ctr-Lab [address] RdStart: 09-16-2021([facility] R A/c) [facility] Repeat A/CDawn [facility] Start: 09-16-2021 End: 17-45-4978hfnofgygzrEctq Fitt Other [employer] Other Start: 08-27-2021 End: 49-93-9298pirgkysmujIstbs Hykes Other [employer] Other Start: 70-81-8061Twnwtq outpatient visit 25 minutes Arnulfo BoyerJEREMY GastroenterologyStart: 08-25-2021([facility] R A/c) [facility] Repeat A/CDawn [facility] ClinicStart: 08-25-2021 End: 65-19-9385qwygsabfhhRdyw Fitt Other [employer] Other Start: 08-10-2021([facility] R A/c) [facility] Repeat A/CDawn Fitt [facility] ClinicStart: 08-10-2021 End: 99-56-6430ncjjucyhetCjna Fitt Other [employer] Other Start: 12-84-0360Ptegbpemq encounterDawn [facility] ClinicStart: 07-27-2021([facility] R A/c) [facility] Repeat A/CDawn Fitt [facility] ClinicStart: 07-27-2021 End: 60-48-8924xcjdnjzseqSotu Fitt Other [employer] Other Start: 07-23-2021 End: 28-08-4245wgmhmvnnnbFsak Fitt Other [employer] Other Start: 58-88-6756Rlrjvlwpm encounterDawn [facility] ClinicStart: 07-15-2021 End: 00-86-5779doojsnppllBvue Fitt Other [employer] Other Start: 68-69-8872Duzjeqnft encounterDawn [facility] ClinicStart: 07-06-2021([facility] R A/c) [facility] Repeat A/CDawn Fitt [facility] ClinicStart: 07-06-2021 End: 13-34-5151nnhuguuzawNpru Fitt Other [employer] Other Start: 06-25-2021([facility] R A/c) [facility] Repeat A/CDawn Fitt [facility] ClinicStart: 06-25-2021 End: 63-81-4206iupzfrvhzlCcch Fitt Other [employer] Other Start: 06-18-2021([facility] R A/c) [facility] Repeat A/CDawn Fitt [facility] ClinicStart: 06-18-2021 End: 22-98-4722jwkgucfjpkXsjh Fitt Other [employer] Other Start: 06-10-2021(New AC) New Visit (coumadin)Dali [facility] ClinicStart: 06-10-2021 End: 08-48-6862oerrbrhlvnVxnw Fitt Other [employer] Other Start: 20-94-9506Pxsslbmvf encounterDamirna [facility] ClinicStart: 16-04-7326Khjtvwkxq encounterRobert Dionicio Rodríguez Work Phone: [phone]-Czjsc [facility] [address] DO Work Phone: Start: 26-93-7547Fv RenewalRobert Dionicio Rodríguez Work Phone: [phone]-Dqsaa [facility] [address] DO Work Phone: Start: 98-94-5124Jfivch outpatient visit 25 minutes Richard Dionicio [employer] Work Phone: [phone]-Ngqbv [facility] [address] DO Work Phone: Start: 11-23-2018 End: 56-18-9964Gmarpgw encounter procedureMATTHEW MORROWFacility:T0Bkhlx: 96-57-1530Beobexr encounterPROVIDER UNKNOWNFacility:1532Start: 68-78-8517Xprwsgp encounterROBERT VASCHAKFacility:1532Start: 08-10-2017 End: 41-70-8985MhhmncscrrBfjd WadeFacility:CD:[id number]: 12-27-2016 End: 86-65-5294DwrtdunondZxdy KovesdiFacility:CD:[id number] encounter statusRobert Dionicio Rodríguez Work Phone: [phone]-Rpgpp [facility] [address] DO Work Phone: Procedures DateProcedureProcedure DetailPerforming ClinicianStart: 82-49-1845Ru heart contrast eval cardiac structure&morphJavan Magallanes MD Work Phone: Start: 18-88-9940Iculmzooqa bloodJavan Magallanes MD Work Phone: Start: 65-61-4591Uhg routine ecg w/least 12 lds w/i&r Jose Angel Palmer MD Work Phone: Start: 70-69-6286Rojx transthorc r-t 2d w/wo m-mode rec f-up/lmtRusty Lim INSPECTOR MECHANICAL-REGULATORY CONSULTANT Work Phone: Start: 94-43-7054EU Heart TransthoracicGeneric External Data ProviderStart: 36-71-4113Xpb routine ecg w/least 12 lds trcg only w/o i&Kristan Mary Grace Lim INSPECTOR MECHANICAL-REGULATORY CONSULTANT Work Phone: Start: 80-97-0920Mxnkzdf catheterization studyJavan Magallanes MD Work Phone: Start: 37-78-9598Cjmbefhatne time activatedJavan Magallanes MD Work Phone: Start: 09-08-9879Btpy transthorc r-t 2d w/wo m-mode rec f-up/lmRubina Lim INSPECTOR MECHANICAL-REGULATORY CONSULTANT Work Phone: Start: 05-31-7819Kwgmdsn catheterization studyGeneric External Data ProviderStart: 65-94-6600Ihb routine ecg w/least 12 lds trcg only w/o i&Kristan Mary Grace Raphael INSPECTOR MECHANICAL-REGULATORY CONSULTANT Work Phone: Start: 31-72-5620OL Heart TransthoracicGeneric External Data ProviderStart: 21-34-5903Ocuvg typing serologic rh (d)Lelo Brody Raphael INSPECTOR MECHANICAL-REGULATORY CONSULTANT Work Phone: Start: 64-37-9022Sdpymbskokifd metabolic panelAmy Mary Grace Raphael INSPECTOR MECHANICAL-REGULATORY CONSULTANT Work Phone: Start: 74-47-4133UL WATCHMAN FULL CONTRASTGeneric External Data ProviderStart: 09-42-5546Pqhnm 1996 panel - Serum or Plasma Javan Magallanes MD Work Phone: Start: 09-38-2104Dsy routine ecg w/least 12 lds w/i&r Gunner Colorado MD Work Phone: Start: 18-71-7319TqqmgmidbbmnkvoiwamzjtuwnjHhgdyn Hill MD Work Phone: Start: 99-99-9835Nnj routine ecg w/least 12 lds w/i&r Jose Angel Palmer MD Work Phone: Start: 85-55-5507Fxa routine ecg w/least 12 lds trcg only w/o i&Noemi Colorado MD Work Phone: Start: 11-03-2023 End: 74-79-6917VlounstwljeXL Robert Hill Work Phone: Start: 38-12-9160Zhntq 1995 panel - Serum or Plasma Gunner Colorado MD Work Phone: Start: 85-24-3582Tvm routine ecg w/least 12 lds trcg only w/o i&Noemi Colorado MD Work Phone: Start: 12-87-5140Onpjlyxnyrr time activatedGunner Colorado MD Work Phone: Start: 07-13-2023 End: 28-85-0318Laopaxkyyrm time Gabby Colorado MD Work Phone: Start: 85-90-9104Gebbisp quantitative blood xcpt reagent stripEssnadeem Colorado MD Work Phone: Start: 39-56-9680IYMVXUHZZGHCPZNXV PROCEDUREESSNADEEM COLORADOStart: 92-63-1075Zhp routine ecg w/least 12 lds trcg only w/o i&rEsseim Taiwo MUNOZ Work Phone: Start: 47-81-6891Urn routine ecg w/least 12 lds w/i&r Jose Angel Palmer MD Work Phone: Start: 08-44-9953Lhama excisionWY Richard Rodríguez Work Phone: Start: 05-45-3570Ovd routine ecg w/least 12 lds w/i&r Jose Angel Palmer MD Work Phone: Start: 68-37-8791Qflahtclpipvu of median nerveWY Richard Rodríguez Work Phone: Start: 72-43-3764Xiolvmihqgzf myocardial perfusion stress studyWY Richard Strathmere Work Phone: Start: 48-05-2958JC pre/post mri xrayWY Richard Strathmere Work Phone: Start: 75-76-3890HMK of cervical spine without contrastWY Richard Rodríguez Work Phone: Start: 81-99-1916TfchckezggyHvkprr Sharma MD Work Phone: Cardiac catheterizationRobert Dionicio Strathmere Work Phone: Decompression of median nerveRobert Dionicio Strathmere Work Phone: Total colonoscopyRobert [facility] Work Phone: Comment on above:Procedure Date: [id number]; Plan of Treatment DateCare ActivityDetailAuthorStart: 80-43-0667Wbsdioekm for malignant neoplasm of colonUniversity [facility]als [facility]: 19-41-0655Jahovjugo for malignant neoplasm of colonUniversity Hospitals Lake [facility]: 11-13-2027 DTaP/Tdap/Td Vaccines (2 - Td or Tdap)DTaP/Tdap/Td Vaccines (2 - Td or Tdap) [facility]: 30-87-8991Woxnrnnr screeningDiabetes: Retinopathy ScreeningBarnes-Jewish West County HospitalStart: 88-20-8213Uadistsh screeningDiabetes: Retinopathy ScreeningBarnes-Jewish West County HospitalStart: 07-23-2026Medicare Annual Wellness VisitMedicare Annual Wellness Visit (AWV)[facility]: 07-22-2026Medicare Annual Wellness (AWV)Medicare Annual Wellness (AWV)[facility] HealthcareStart: 93-72-2418Suruv panelLipid PanelUniversity Hospitals Lake West Medical Center: 56-26-2667Iqbno screening for proteinDiabetes: Urine Protein ScreeningUniversity Hospitals Lake [facility]: 04-12-2025 End: 58-11-4040Illnrux encounter ocuyacbhm20/20/2026 10:40 AM EST Office Visit [facility] [address] [address] Jose Angel Palmer MD 703 [facility] 2, [address] [address] [facility]Start: 03-19-2025 End: 52-01-7544Luqqwze encounter procedureNOPROVIDENCE ST. [facility] IMStart: 03-10-2025 End: 98-09-3473Gkugr metabolic 1998 panel - Serum or PlasmaBasic metabolic panel Lab Routine Type 2 diabetes mellitus with diabetic neuropathy, with long-term current use of insulin (HCC) Expected: 03/10/2025, Expires: 09/11/2025NODC HealthcareComment on above:Expected: 03/10/2025, Expires: 09/11/2025Start: 03-10-2025 End: 93-46-7886SBU W Auto Differential panel - BloodCBC and differential Lab Routine Type 2 diabetes mellitus with diabetic neuropathy, with long-term c urrent use of insulin (HCC) Expected: 03/10/2025, Expires: 09/11/2025[facility] Work Phone: Comment on above:Expected: 03/10/2025, Expires: 09/11/2025Start: 03-10-2025 End: 34-85-4101Ocksnpmjuh a1c with eagHemoglobin a1c with eag Lab Routine Type 2 diabetes mellitus with diabetic neuropathy, with long-term current use of insulin (HCC) Expected: 03/10/2025, Expires: 09/11/2025NODC HealthcareComment on above:Expected: 03/10/2025, Expires: 09/11/2025Start: 12-27-2024 End: 30-36-7586Mfoaygw encounter /06/2025 8:30 AM EST Appointment [address] [place] [address] OGGrundy County Memorial Hospitaltart: 96-66-3155Mikzlsbowy A1c measurementDiabetes: Hemoglobin J1IOCAI HealthcareStart: 36-37-6247Wtsxqnxb screeningDiabetes: Retinopathy ScreeningNODC HealthcareStart: 11-06-2024 End: 93-06-9064Jdcpqdv encounter procedureNOMS SWS PODIATRYStart: 10-22-2024 COVID-19 Vaccine ( season)COVID-19 Vaccine () [facility]: 68-29-8091Jnvvdjkpo vaccinationInfluenza Vaccine (#1)[facility]St[facility]: 10-18-2024 End: 58-71-9509Kjjtrvn encounter usthgteqm92/28/2025 1:00 PM EDT Office Visit [facility] [address] [place] [address] [facility] MedicineStart: 45-45-6903WiduqjfdaCincinnati Children's Hospital Medical Centertart: 10-09-2024 End: 75-64-8562Lfqpuad encounter mrzabxipq00/19/2025 9:00 AM EDT Office Visit [place] [address] [address] [facility] [address] [place] [address] Jose Angel Palmer MD [address] [facility] 2, [address] [place] [address] [facility]Start: 10-04-2024 End: 85-55-2740Beguneo encounter procedureNOMS [facility] DERMStart: 09-21-2024 Influenza vaccinationInfluenza Vaccine (#1)[facility] Start: 09-17-2024 End: 47-96-0830Hxuxlmnadyys / ancillary services oeowvwpnnh44/28/2025 1:30 PM EDT Ancillary Procedure [facility] [place] [facility] [address] [facility] [place] [address] [facility] [place] [facility] ImagingStart: 09-14-2024 End: 55-76-6448Rkgpkky encounter ylepfecpw28/25/2025 3:00 PM EDT Appointment [address] [place] [address] [facility] Hospitaltart: 09-11-2024 End: 85-06-0365Npdbyhx encounter procedureNOMS [facility] IMStart: 09-07-2024 End: 05-61-5032SB pre watchman full contrastCT pre watchman full contrast Imaging Routine Persistent atrial fibrillation (Multi) AnticoagulatedExpected: 09/07/2024, Expires: 09/07/2025[facility] Service Area Work Phone: Comment on above:Expected: 09/07/2024, Expires: 09/07/2025Start: 07-18-2025Medicare Annual Wellness VisitMedicare Annual Wellness Visit (AWV)[facility] HospitalStart: 09-07-2024 End: 32-15-5164Pktpmyg encounter /18/2025 11:30 AM EDT Office Visit [facility] [address] [facility] [address] [place] [phone] Javan Magallanes MD [address] [facility], [address] [place] [address] [facility] CenterStart: 07-17-2025Medicare Annual Wellness (AWV)Medicare Annual Wellness (AWV)[facility] HealthcareStart: 09-04-2024 End: 61-04-6103MHR W Auto Differential panel - BloodCBC and differential Lab Routine Iron deficiency anemia, unspecified iron deficiency anemia type Exp ected: 09/04/2024, Expires: 03/07/2025[facility] Work Phone: Comment on above:Expected: 09/04/2024, Expires: 03/07/2025Start: 09-04-2024 End: 15-99-8687Sjncgjjdv (Vitamin B12) [Mass/volume] in Serum or PlasmaVitamin B12 Lab Routine Vitamin B12 deficiency Expected: 09/04/2024, Expires: 03/07/2025 [facility] HealthcareComment on above:Expected: 09/04/2024, Expires: 03/07/2025Start: 09-04-2024 End: 72-13-6661Yzznlvzzrqhdd metabolic 2000 panel - Serum or PlasmaComprehensive metabolic panel Lab Routine Type 2 diabetes mellitus with diabetic neuropathy, unspecified (CMS/HCC) Essential hypertension (CMS/HCC) Expected: 09/04/2024, Expires: 03/07/2025N[facility]S HealthcareComment on above:Expected: 09/04/2024, Expires: 03/07/2025Start: 09-04-2024 End: 62-31-4774Yvcdlawwom a1c with eagHemoglobin a1c with eag Lab Routine Type 2 diabetes mellitus with diabetic neuropathy, unspecified (CMS/HCC) Expected: 09/04/2024, Expires: 03/07/2025N[facility]C HealthcareComment on above:Expected: 09/04/2024, Expires: 03/07/2025Start: 09-04-2024 End: 82-06-2554Nlyyi 1996 panel - Serum or PlasmaLipid panel Lab Routine Mixed hyperlipidemia (CMS/HCC) Expected: 09/04/2024, Expires: 03/07/2025NOMS HealthcareComment on above:Expected: 09/04/2024, Expires: 03/07/2025Start: 09-04-2024 End: 04-39-6280Rjhkuagqdfjh/Creatinine panel in random UrineMicroalbumin / creatinine urine ratio Lab Routine Essential hypertension (CMS/HCC) Expected: 09/04/2024, Expires: 03/07/2025NODC HealthcareComment on above:Expected: 09/04/2024, Expires: 03/07/2025Start: 09-04-2024 End: 23-56-7159Dtbogpkd specific Ag [Mass/volume] in Serum or PlasmaPSA Lab Routine Elevated PSA Expected: 09/04/2024 (Approximate), Expires: 03/07/2025NODC HealthcareComment on above:Expected: 09/04/2024 (Approximate), Expires: 03/07/2025Start: 09-04-2024 End: 21-68-6639Hsnkpzvgjt complete panel - UrineUrinalysis with microscopic Lab Routine Essential hypertension (CMS/HCC) Expected: 09/04/2024, Expires: 03/07/2025NODC HealthcareComment on above:Expected: 09/04/2024, Expires: 03/07/2025Start: 01-96-5824Rtnnw panelLipid PanelUnKettering Health TroyStwilliamsburg: 90-42-7942Msalx screening for proteinDiabetes: Urine Protein ScreeningNorwalk Memorial HospitalStart: 08-14-2024 End: 80-24-5478Hjdrynr encounter procedureW. D. Partlow Developmental Centertart: 69-22-4328IgadxqiqaCincinnati Children's Hospital Medical Centertart: 08-01-2024 End: 62-20-0236Llzrmfg encounter abvkybbig65/11/2025 1:20 PM EDT Office Visit [place] [address] [address] Jose Angel Palmer MD 703 [facility], [address] [place] [address] [facility]: 07-31-2024 End: 02-60-7394Ejjzifm encounter procedureNOMS SWS PODIATRYComment on above: ArrivedStart: 07-03-2024 End: 71-20-8188Svdnsfl encounter tatrvyhte15/13/2025 2:20 PM EDT Office Visit [facility] [address] [place] [address] Agnes Hatfield, INSPECTOR MECHANICAL-REGULATORY CONSULTANT [address] [place] [address] [facility] SWS DERMStart: 07-02-2024 End: 00-36-6957Xpxzdc monitor studyHolter Or Event [facility] Routine Persistent atrial fibrillation (Multi) Expected: 07/02/2024, Expires: 11/08/2024[facility] Service Area Work Phone: Comment on above:Expected: 07/02/2024, Expires: 11/08/2024Start: 06-05-2024 End: 76-24-1445Ehpkmdt encounter fusmummiv58/15/2025 2:25 PM EDT Office Visit [facility] [address] [place] [address] Agnes Hatfield, INSPECTOR MECHANICAL-REGULATORY CONSULTANT [address] [place] [address] ArrivedCHI [facility] DERMComment on above: ArrivedStart: 70-16-1288Ssoubhnfln A1c measurementDiabetes: Hemoglobin C8YCSPL HealthcareStart: 04-26-2024 End: 45-52-6106Cikklqf encounter /06/2025 3:00 PM EST Office Visit [facility] [address] [place] [address] Marilynn Wharton DPM [address] [place] [address] ArrivedNO [facility] PODIATRYComment on above:ArrivedStart: 04-16-2024 End: 45-69-2854Ywoikwx encounter twfublvnm73/24/2025 9:15 AM EST Office Visit [facility] [address] [place] [address] Haven Sanchez NP [address] [place] [address] Other porphyria (CMS/HCC)[facility] IMComment on above: Other porphyria (CMS/HCC)Start: 03-27-2024 End: 68-93-7011wqecdgldnrXQMS CI PTComment on above:Weakness of hip (Primary Dx); Severe obesity (BMI 35.0-39.9) with comorbidity (CMS/HCC); Low back pain, unspecified back pain laterality, unspecified chronicity, unspecified whether sciatica presentStart: 03-23-2024 End: 88-43-2850sufdkhkzph90/31/2025 8:00 AM EST Evaluation [facility] [address] [place] [address] Jessie Bradley, ARISTEO Weakness of hip (Primary Dx); Severe obesity (BMI 35.0-39.9) with c omorbidity (CMS/HCC)[facility] CI PTComment on above:Weakness of hip (Primary Dx); Severe obesity (BMI 35.0-39.9) with comorbidity (CMS/HCC)Start: 03-07-2024 End: 95-66-4423Igjwgkv encounter sybozgdyp20/15/2025 9:45 AM EST Office Visit [facility] [address] [place] [address] Richard Rodríguez MD [address] [place] [address] [facility] IMStart: 54-75-9166Djorxg Vaccines (2 of 2)Zoster Vaccines (2 of 2)[facility] HospitalStart: 01-13-2024 End: 94-77-5713Arfhclt encounter bpmrfofug32/22/2024 9:50 AM EST Office Visit [place] [address] [facility] [address] [place] [address] Jose Angel Palmer MD [address] [facility] [address], [address] [place] [address] [facility]: 15-61-0397Wydmiowu screeningDiabetes: Retinopathy ScreeningUniversity Hospitals Lake [facility]: 11-29-2023 Hemoglobin A1c measurementDiabetes: Hemoglobin O9RXXKLBarnes-Jewish West County HospitalStart: 11-10-2023 End: 77-03-5306Oyjtpd monitor studyHolter Or Event [facility] Routine Persistent atrial fibrillation (Multi) Expected: 11/10/2023, Expires: 08/09/2024[facility] Service Area Work Phone: Comment on above:Expected: 11/10/2023, Expires: 08/09/2024Start: 11-09-2023 End: 62-35-5369Gkrmdod encounter /18/2024 1:00 PM EDT Office Visit [facility] [address] [facility] [address] [place] [address] Gunner Colorado MD [address] [place] [address] [facility]ert[facility]: 11-03-2023 [facility] Medical Centertart: 10-27-2023 End: 42-35-2680rgmmokatyz02/05/2024 10:00 AM EDT Treatment [facility] [address] [facility] [address] [place] [address] Carol Thurston, CHALK TESTER NOMS CI PTStart: 10-25-2023 End: 36-77-9645tqtktmielm92/03/2024 10:00 AM EDT Treatment [facility] [address] [facility] [address] [place] [address] Carol Thurston, CHALK TESTER NOMS CI PTStart: 04-87-8789SUOCV-19 Vaccine ( season)COVID-19 Vaccine ()[facility]: 93-91-4095YEXDH-19 Vaccine ( season)COVID-19 Vaccine ( season)[facility]: 23-96-7108YOEOR-19 Vaccine () COVID-19 Vaccine ( season)[facility]: 18-37-1369Mktzyzqac vaccinationUniversity Hospitals Lake West Medical Center: 10-20-2023 End: 18-12-3130aoyccgeotp39/29/2024 11:00 AM EDT Treatment [facility] [address] [facility] [address] [place] [address] Cathy Coronel PTA NOMS CI PTStart: 10-18-2023 End: 61-88-9145lywwoeyefa64/27/2024 10:30 AM EDT Evaluation [facility] [address] [address] [place] [address] Eric Alexandre, PT [address] [facility] [address] [place] [address] Chronic neck painNOMS CI PTComment on above:Chronic neck painStart: 10-03-2023 End: 56-88-2270Mtlvqufecuoq / ancillary services ylgpawtuio11/12/2024 9:00 AM EDT Ancillary Procedure [address] [place] [address] ROFoundations [facility]al [facility]: 49-69-1432Khhne screening for protein Diabetes: Urine Protein ScreeningUniversity Hospitals Lake West Medical Center: 08-10-2023 End: 90-08-3423Ldeorjz encounter ikhbnerlj23/19/2024 1:40 PM EDT Office Visit [address] [place] [address] Jose Angel Palmer MD [address] [facility] [address], [address] [place] [address] [facility]: 08-09-2023 End: 47-71-7453Xrpbblj encounter gcigjkmnt60/18/2024 11:00 AM EDT Office Visit [facility] [address] [facility] [address] [place] [phone] Gunner Colorado MD [address] [place] [address] [facility] 07-13-2023 End: 03-75-6710Koemvxvse to same day surgery ytpyes0307/13/2023 8:30 AM EDT - 07/13/2023 1:[address] [facility] [address] [place] [address] [place] [phone] Gunner Colorado MD [address] [place] [address] Ablation A- Fib [06257 (CPT )][facility] MatherComment on above:Ablation A- Fib [75526 (CPT )]Start: 72-30-1269Yhdbknjeqv hospital visit by physician 07/13/2023 8:30 AM EDT Hospital Encounter [facility] [address] [place] [address] [place] [phone] Gunner Colorado MD [address] [place], [place] [id number] Persistent atrial fibrillation (Multi)[facility] Joi Comment on above:Persistent atrial fibrillation (Multi)Start: 06-03-2023 [facility]: 04-25-5544Sjyeufia admissionCincinnati Children's Hospital Medical Centertart: 05-20-2023 End: 19-15-3641Jtolsuh encounter prqfainvx13/29/2024 9:50 AM EDT Office Visit [facility] [address] [facility] [address] [place] [address] Jose Angel Palmer MD [address] [place] [address] [facility]: 39-56-1805AyrcrcojqPrem[facility] Start: 46-19-6641YbbtsfusbCincinnati Children's Hospital Medical Centertart: 27-71-8639LVB, Provider: Jose Angel Palmer, Status: Pen, Time: 3:30 PMFUV, Provider: Jose Angel Palmer, Status: Pen, Time: 3:30 [facility] DO Work Phone: Start: 12-22-9175KahpujctsPremier Health [facility] Hospital Start: 40-40-5864Euvdlcwt screeningDiabetes: Retinopathy ScreeningRegency Hospital Cleveland Eastart: 80-04-8896GQRYVSXYU, Provider: Jose Angel Palmer, Status: Pen, Time: 10:00 [facility], Provider: Jose Angel Palmer, Status: Pen, Time: 10:00 [facility] 600 DO Work Phone: Start: 70-36-4206GDQCP-19 Vaccine ( season) COVID-19 Vaccine ( season)[facility]: 16-96-2807Goocoddkv vaccinationInfluenza Vaccine (#1)[facility]: 41-78-2673UOU, Provider: Jose Angel Palmer, Status: Pen, Time: 3:00 PMFUV, Provider: Jose Angel Palmer, Status: Pen, Time: 3:00 [facility] DO Work Phone: Start: 98-51-5806VejiqylgbPremier Health [facility] Start: 32-45-6995QbnptmesuCincinnati Children's Hospital Medical Centertart: 03-03-2023Medicare Annual Wellness (AWV)Medicare Annual Wellness (AWV)[facility] HealthcareStart: 36-05-3769Isdqfizzkaox myocardial perfusion stress studyNM margarito perf SPECT rest & strCincinnati Children's Hospital Medical Centertart: 88-18-9579RLYDO Heart perfusion at rest and W stress and W radionuclide IVFWilson Memorial Hospitaltart: 67-59-2527UL pre/post mri xrayXR pre/post mri xrayCincinnati Children's Hospital Medical Centertart: 17-21-9519HngjcmxumCincinnati Children's Hospital Medical Centertart: 43-40-2581KF Cervical spine WO contrastCincinnati Children's Hospital Medical Centertart: 38-23-3310TCF of cervical spine without contrastMR cervical spine wo [facility]: 09-73-7528UDI, Provider: Jose Angel Palmer, Status: Pen, Time: 1:30 PMFUV, Provider: Jose Angel Palmer, Status: Pen, Time: 1:30 PM- [facility] 250 DO Work Phone: Start: 29-05-5859Injjnoeuiz RecurringRegistered RecurringUniversity Hospitals Conneaut [facility] Ctr-Center for Coordinated CareStart: 46-24-2541MXCTK-19 Vaccine (3 - Pfizer series)COVID-19 Vaccine (3 - Pfizer series)[facility]: 04-56-1017Zgbnnolic aortic aneurysm screeningAbdominal Aortic Aneurysm (AAA) ScreeningUniversity Hospitals Lake West Medical Center: 83-05-9001NYQ patients and/or patients aged 60+ years (1 - 1-dose 60+ series)RSV patients and/or patients aged 60+ years (1 - 1-dose 60+ series)[facility]: 2001 Zoster Vaccines (1 of 2)Zoster Vaccines (1 of 2)[facility]: 55-22-5242EEiG/Tdap/Td Vaccines (1 - Tdap)DTaP/Tdap/Td Vaccines (1 - Tdap)[facility]: 44-36-9948Fwxdt screening for proteinDiabetes: Urine Protein ScreeningUniversity Hospitals Lake West Medical Center: 91-67-9986Esgrcvixm C screeningHepatitis C ScreeningUnOhioHealth Southeastern Medical Center: 08-06-9392Jlfinssr foot examinationDiabetes: Foot ExamUnOhioHealth Southeastern Medical Center: 61-23-7759QCE Vaccines (1 of 1 - Standard series) MMR Vaccines (1 of 1 - Standard series)[facility]: 53-52-7141Aqcfjousif A1c measurementDiabetes: Hemoglobin G0RQctiocghgqUniversity Hospitals Lake West Medical Center: 19-36-4444Yhkrp panelLipid PanelUniversity Hospitals Lake West Medical Center: 1951Medicare Annual Wellness VisitMedicare Annual Wellness Visit (AWV)[facility]: 51-96-0042Iyfommbnb for malignant neoplasm of colonUnOhioHealth Southeastern Medical Center: 1950 Skin Cancer ScreeningSkin Cancer ScreeningNorwalk Memorial Hospital End: 51-03-9377SS pre watchman full contrastWeill Cornell Medical Center Area Work Phone: Comment on above:Once for 1 Occurrences starting 09/14/2024 until 09/14/2024ECG 12 leadECG 12 lead ECG STAT 09/26/2024 8:40 AM EDTNorwalk Memorial Hospital Work Phone: Electrocardiogram, 12-lead PRN ACS symptomsIra [facility] Work Phone: Comment on above:As needed until discontinued starting 09/26/2024 End: 36-86-9376Mfxoxuelqsnsdhwcc [facility] Work Phone: Comment on above:Once for 1 Occurrences starting 06/23/2023 until 06/23/2023MR Lumbar spine WO contrastMR lumbar spine wo contrast Imaging Routine Chronic bilateral low back pain without sciatica Weakness of both lower extremities Lumbar spondylosis Ordered: 09/11/2024[facility] HealthcareComment on above:Ordered: 09/11/2024Patient EducationUniversity Hospitals [facility] Ctr Work Phone: Patient referralUniversity Hospitals Conneaut Medical Center Ctr Work Phone: XR Hip - right 3 ViewsXR hip right 2 or 3 views Imaging Routine Right hip pain Osteoarthritis of right hip, unspecified os teoarthritis type 04/16/2024 10:[address] [facility] Work Phone: [facility] Immunizations Immunization DateImmunizationNotesCare FcmardfkOtjzpagi10-99-5874Aptvjkhwlmxp Conjugate PCV 20Summer Workman PA Work Phone: NOUniversity of Missouri Health CareFoofzjkbxf81-97-0785cjqtdx vaccine recombinant Haven Risaliti INDUCTION FURNACE OPERATOR Work Phone: noUniversity of [place] Health CareDwpxgngvhx81-15-1528ALRVFEB - Respiratory syncytial virus (RSV), vaccine, bivalent, protein subunit RSV prefusion F, dil uent reconstituted, 0.5 mL, PFGina Risaliti INDUCTION FURNACE OPERATOR Work Phone: noMS Omvogqodlt92-77-8560ftaqnadgn, high dose seasonal, preservative-freeGina Risaliti INDUCTION FURNACE OPERATOR Work Phone: noUniversity of [place] Health CareEykpfaugto09-64-4670bcdyfc vaccine recombinant Haven Risaliti INDUCTION FURNACE OPERATOR Work Phone: noUniversity of [place] Health CareZbobmnjnyl40-37-7796sxuiebina virus vaccine, unspecified formulationJavan Magallanes MD Work Phone: [facility] Work Phone: [phone] High-Dose Quadrivalent 0.7 ML Intramuscular Suspension Prefilled SyringeRobert L Strathmere Work Phone: [phone]-NximzMary [place] [address] DO Work Phone: [phone], high dose seasonal, preservative-freeJeremy [facility] Work Phone: NOUniversity of [place] Health CareIxwgkgszvb89-63-8188fzcsogpro virus vaccine, unspecified formulationJose Angel Palmer MD Work Phone: [facility] Work Phone: [phone]h, high dose seasonal, preservative-freeRobert L [place]ath[place] Work Phone: [phone]-RtmpaNorthfield City Hospital 250 DO Work Phone: [phone]-QpfSUwli COVID-19 Vacc 30 MCG/0.3ML Intramuscular SuspensionRobert L Strathmere Work Phone: [facility]04-14-2021Pfizer- BioNTech COVID-19 Vacc 30 MCG/0.3ML Intramuscular SuspensionRichard Greenberg [place] Work Phone: [facility]01-14-2021influenza, high dose seasonal, preservative-freeRichard Rodríguez Work Phone: [phone]-ZchuxDavid Ville [address] DO Work Phone: [phone]jiodpe polysaccharide vaccine, 23 valentRmaegant Dionicio Rodríguez Work Phone: [facility] HospitalUajzitvfom11-39-9848saqqkdyse virus vaccine, unspecified formulationRichard Greenberg [place] Work Phone: [phone]-BkycxDavid [place] [address] DO Work Phone: [phone] virus vaccine, unspecified formulationNicholas County Hospitalkhloe Greenberg [place] Work Phone: [phone]-TdlfeMary [place] [address] DO Work Phone: [phone]d, high dose seasonal, preservative-freeRichard Greenberg [place] Work Phone: [facility]01-16-2019influenza virus vaccine, unspecified formulationRichard Greenberg [place] Work Phone: [phone]-ScrfdDavid [place] [address] DO Work Phone: [phone] toxoid, reduced diphtheria toxoid, and acellular pertussis vaccine, Arnulfo Palmer MD Work Phone: [facility] Work Phone: [phone]lz, injectable, quadrivalent, preservative freeRichard Greenberg [place] Work Phone: [phone]-QhdqsDavid [place] [address] DO Work Phone: [phone]iietmwwd conjugate vaccine, 13 valent Richard Dionicio [place] Work Phone: [facility] HospitalChvsfcqxxr91-71-8998sscxucnxxvpk polysaccharide vaccine, 23 valentRobert L Hill Work Phone: [facility] HospitalGvheanikzf94-21-6816slfgiuzxt B vaccine, adult Calista Rodríguez Work Phone: [phone]-ObxnaMary [place] [address] DO Work Phone: [phone]lzzhsj B vaccine, adult dosageRichard Rodríguez Work Phone: [phone]-PbejpMary [place] [address] DO Work Phone: [phone]bht B vaccine, adult dosageRichard Rodríguez Work Phone: [facility] Payers DatePayer CategoryPayerPolicy [id number] Health InsuranceNORTHERN NAVA[facility] [employer] [place] [id number] [id number] supplemental policy (as second payer) [id number] [id number] [id number]-sws [id number] [id number] [id number] 2.16.840.1.529944.3.57[id number] 2.16.840.1.710905.3.57[id number] 2.16.840.1.086200.3.57[id number] 2.16.840.1.259854.3.57[id number] 2.16.840.1.690036.3.57[id number] 2.16.840.1.649249.3.57[id number] 2.16840.1.334481.3.57[id number] 2.16.840.1.571523.3.57[id number] 2.16.840.1.713892.3.57[id number] 2.16.840.1.703425.3.57[id number] 2.16.840.1.655499.3.57[id number] 2.16.840.1.946775.3.57[id number] 2.16.840.1.265741.3.57[id number] 2.16.840.1.167988.3.57[id number] 2.0.1.079392.3.57[id number] 2..1.151255.3.57[id number] 2.0.1.577082.3.57[id number] 2..1.485502.3.57[id number] 2..1.502572.3.57[id number] 2..1.432419.3.579.2.66[id number] 2..1.847077.3.57[id number] 2..1.047611.3.57[id number] 2..1.405[id number]-OP No Part B [id number] Health [facility] Insurance [id number] 2..[id number] 2..1.3[id number] 2.0.1.3[id number] 2.0.1.353484.3.579.2.531 [id number] 2.16.840.1.2[id number] 2.16.840.1.1[id number] 2.16.840.1.588888.3.579.2.531 [id number] 2.16.840.1.7[id number] 2..840.1.345356.3.579.2.531 Social History DateTypeDetailFacilityStart: 01-25-2023 End: 11-62-2216Fi illicit drug useNo illicit drug useUnKettering Health TroyComment on above:1 post of coffee daily, Coke zero daily;Quit smoking 17 years ago 1 ppd;1 pot of coffee daily,3-4 diet coke;Start: 01-25-2023 End: 36-73-6424Yit Assigned At [facility] SpringsUnKettering Health TroyStart: 06-04-2021 End: 69-74-0794Piofsba smoking status NHISEx-smoker (finding)[facility] Centertart: 01-46-8943Qmx Assigned At [facility] End: 50-02-0039Dnadcor of tobacco useCurrent smokerUnKettering Health Troy Work Phone: End: 05-16-5759Feeebbi of tobacco useCigarette SmokerUnKettering Health Troy Work Phone: Start: 01-25-2023 End: 55-41-0062Avbrzjy use and exposureSmokeless tobacco non-userUnKettering Health Troy Work Phone: Start: 01-25-2023 End: 47-78-2121Wuhrsnt intakeLifetime non-drinker (finding)[facility] Work Phone: Start: 13-54-2794Phd Assigned At BirthNot on file [facility] Work Phone: Start: 01-15-2023 End: 54-64-1734Wrbovgei to SARS-CoV-2 (event)Not sureNorwalk Memorial HospitalStart: 01-16-2022 End: 64-27-0312NorTvvm (finding)[facility] Centertart: 10-05-2023 End: 36-30-3615Juyamfvwe beverage intakeEx-drinker (finding)[facility] Start: 00-72-3164Qxeieue CommentEx-heavy (20-30/day)Quit >10 years agoNOMS HealthcareStart: 65-91-4886Wpilxgc CommentCaffeine: .4-5 cups/day coffee; soda/popNOMS HealthcareStart: 30-31-1800Dyxriz identityIdentifies as male gender (finding)[facility] HealthcareStart: 08-06-2024 End: 76-56-4491Mzrggug smoking status NHISNever smoked tobacco (finding) [facility] Cent[facility]art: 27-28-3327EkgQffrWocbfwrrszParkview Health [facility] Medical Equipment Procedure CodeEquipment CodeEquipment Original TextEquipment IdentifierDatesOne Touch LancetsStart: 46-75-8337Yjhdhw, Closure, 35mm Watchman Flx Pro Laac - [id number]: 09-26-2024 Goals DatePatient GoalDesired Activity/State Functional Status OmrvYmofihchueHsvasmTyhqqylz49-06-5511Sbvqhusdzn [facility] Work Phone: [phone]ekfexws statusNorwalk Memorial Hospital08-06-2025[place] - suicide severity rating scale screener - recent [C-SSRS][facility] Work Phone: [phone]aq statusPatient at Baseline [facility] Work Phone: Mental Status GefvXasderlmmyNlzdgwQhafwxkh62-56-9197Uruinkagu functionCognitive Status Patient at BaselineOhiohealth Grady [facility] Hospital Work Phone: Clinical Notes 06-10-2021 to 10-18-2024 Note Date & QlvdStkpFfizeyxw33-67-2779 History of Present illness Narrative* Moncho ElliottMONE - 10/18/2024 1:00 PM EDT Nereyda Barker is a 74 y.o. male presents with chief complaint of 3 Week Follow Up (Watchman Device placement 09/26/2024 @ [facility]) and Discuss MRI (Review results dated 09/17/2024. He had injections 10/16/[address] Hatfield. ) HPI: History of Present Illness The patient presents for evaluation of back pain, weight management, and diabetes. He has been under the care of Dr. Hatfield, who administered injections in his back. He reports an improvement in his condition, with no tingling or numbness in his legs. His bowel and bladder functions are normal. He is curious about the severity of his condition as Dr. Hatfield mentioned the possibility of cauterization. He was prescribed a muscle relaxant, which he found beneficial. Overall, he estimates an 80% improvement in his condition. He is able to climb ladders without difficulty and is walking well without a limp. He has not needed to take baclofen recently. He is interested in discussing weight loss options, including the use of Ozempic. He has no personal or family history of thyroid cancer or pancreatitis. He is currently on insulin therapy for diabetes, administering it as needed. He takes 12 units of Basaglar if his blood sugar exceeds 150. He has not required short-acting insulin recently. He had a Watchman device implanted through his right groin approximately 2 weeks ago and is scheduled for a follow-up visit with his inspector firearms next week. He reports a sensation of fluid accumulation at the site of the procedure but does not experience any pain. He was discharged on the same day of the procedure. He is expected to discontinue warfarin in 12/2024. Denies any fevers, chills, myalg ias, redness over the right groin. FAMILY HISTORY He has no family history of thyroid cancer. I have reviewed and reconciled the history and medication list with the patient today. HISTORIES: PAST MEDICAL HISTORY: Past Medical History: Diagnosis Date A-fib (HCC) Anemia Arthritis Asthma (HCC) Cataract Colon polyps Diverticulitis Essential hypertension Family history of cancer GERD (gastroesophageal reflux disease) HTN (hypertension) Hypercholesterolemia Measles Mild intermittent asthma without complication (HCC) 09/10/2024 Mumps Rheumatoid arthritis (HCC) Type 2 diabetes mellitus (HCC) Vitamin B12 deficiency SURGICAL HISTORY: Past Surgical History: Procedure Laterality Date CARDIAC CATHETERIZATION 09/26/2024 COLONOSCOPY W/ POLYPECTOMY 2012 (Diverticulosis) COLONOSCOPY W/ POLYPECTOMY 2007 COLONOSCOPY W/ POLYPECTOMY 03/31/2018 COLONOSCOPY W/ POLYPECTOMY 11/03/2023 EGD 07/09/2019 (normal) HEART CATH 07/13/2023 Heart ablasion LIPOMA RESECTION 06/04/2021 Excision of painful lipomas left arm and forearm x 3 MASS EXCISION 02/17/2023 suprapubic mass NASAL POLYP EXCISION 2007 SOCIAL HISTORY: Social History Tobacco Use Smoking status: Former Current packs/day: 0.00 Types: Cigarettes Quit date: 02/21/2003 Years since quittin.6 Smokeless tobacco: Never Tobacco comments: Ex-heavy (20-30/day) Quit >10 years ago Vaping Use Vaping status: Never Used Substance Use Topics Alcohol use: Not Currently Comment: Caffeine: .4-5 cups/day coffee; soda/pop Drug use: Never Depression: Not at risk (09/10/2024) PHQ-2 PHQ-2 Score: 2 FAMILY HISTORY: Family History Problem Relation Name Age of Onset Cancer Mother Liban Hypertension Father Lucero Prostate cancer Brother Sven Cancer Brother Sven COPD Brother Sven Melanoma Neg Hx MEDICATIONS: Current Outpatient Medications Medication Instructions Abatacept (ORENCIA SC) Once monthly infusion acetaminophen (Tylenol 8 Hour Arthritis Pain) 650 MG ER tablet Every 12 hours atorvastatin (LIPITOR) 10 mg, Oral, Nightly baclofen (LIORESAL) 10 mg, Oral, Nightly PRN clotrimazole (Lotrimin) 1 % cream 1 application , 2 times daily ferrous gluconate (FERGON) 324 mg, Daily hydroCHLOROthiazide (HYDRODIURIL) 25 mg, Oral, Every morning hydroxychloroquine (Plaquenil) 200 MG tablet 1 tablet, 2 times daily insulin glargine (Basaglar KwikPen) 100 UNIT/ML pen inject 12 units subcutaneously once daily insulin lispro (HumaLOG) 100 UNIT/ML injection 3 times daily with meals leflunomide (ARAVA) 20 mg, Daily losartan (COZAAR) 100 mg, Daily melatonin 10 MG tablet 1 tablet, Nightly PRN metFORMIN (GLUCOPHAGE) 500 mg, Oral, Daily with breakfast omeprazole (PRILOSEC) 40 mg, Oral, Daily warfarin (COUMADIN) 8 mg, See admin instructions ALLERGIES: Allergies Allergen Reactions Penicillins Hives, Itching, Rash, Swelling and Unknown Other Reaction(s): Hives PHYSICAL EXAM: Visit Vitals Smoking Status Former BP Readings from Last 3 Encounters: 09/11/24 140/70 04/16/24 138/70 03/07/24 126/88 Wt Readings from Last 3 Encounters: 09/11/24 224 lb 04/16/24 227 lb 03/07/24 227 lb Physical Exam General Examination: alert, oriented, normal affect, well-appearing, in no acute distress, well developed, well nourished. Head: normocephalic, atraumatic Eyes: sclera non-icteric Skin: rt groin with very small generalized fullness without overlying erythema, palpable abnormality, no tenderness to palpation. Incision wound edges healed. Heart: regular rate and rhythm, S1, S2 normal Lungs: clear to auscultation bilaterally. No wheezes, rales, rhonchi. Extremities: no edema, no cyanosis Psych: alert, oriented, cognitive function intact, cooperative with exam. Results Labs - A1c: 6.6 Imaging - MRI of the back: Very small bulging of the disk at L1-L2, facet degenerative changes, broad baseddisk bulge and annual fissure at L2-L3, osteophytes, mild to moderate canal narrowing, severe left and moderate right foraminal narrowing at L3-L4, and mild to moderate canal narrowing ASSESSMENT AND PLAN: Assessment & Plan 1. Lumbar spondylosis: - The MRI results were reviewed, showing minor disc bulges and mild to moderate canal narrowing, but no severe conditions requiring neurosurgery. - The patient reported an 80% improvement in symptoms after receiving injections from Dr. Hatfield and using muscle relaxers. - The patient was informed that the current condition does not necessitate a back surgeon, but further injections or ablation could be considered if needed. 2. Weight management: - The patient expressed interest in weight loss and discussed the potential use of Ozempic. He was informed about the side effects of Ozempic, including nausea, and the importance of starting at the lowest dose of 0.25 mg once a week for 4 weeks before considering an increase. He was also advised on the necessity of dietary changes to prevent weight regain after discontinuing Ozempic. - A prescription for Ozempic will be sent to the pharmacy, pending insurance approval. 3. Diabetes mellitus: - The patient's last A1c was 6.6. - The potential for discontinuing insulin was discussed if significant weight loss is achieved withOzempic. - The patient currently uses insulin as needed, taking 12 units of Basaglar if his blood sugar is above 150. - we discussed must consume enough protein, weighs and walking regularly especially on ozempic. 4. Postprocedural swelling: - The area was examined and did not appear infected or like a hematoma. - It was explained that this is likely normal postprocedural swelling. He was advised that the swelling should subside over the next month and to contact his inspector firearms if it does not improve. Follow-up: A follow-up visit is scheduled in 6 months. Patient is here for follow up of the above chronic problems. I am following Dr. Rodríguez's established plan of care for these issues. Dr. Rodríguez was in the office suite today and is supervising patient care. documented in this encounterBarnes-Jewish West County HospitalXiltwaqkhr74-61-2818 History of Present illness Narrative* Jose Angel Palmer MD - 10/09/2024 9:00 AM EDT Chief Complaint Patient presents with Follow-up Status post watchman Subjective Nereyda Zoila Barker is a 74 y.o. male HPI Patient here for follow-up continue management for severe persistent atrial fibrillation/flutter. He failed flecainide and did not tolerate sotalol or Tikosyn due to prolonged QTc interval. The patient underwent successful ablation in the past. In addition due to recent suspicion of upper GI bleed the patient underwent a GI evaluation and subsequently Watchman device implantation. Since the last time I saw him the patient describes symptoms of shortness of breath. He denies chest pain, or syncope but describe brief episode of lightheadedness recently. He is diabetic. He did not check his blood pressure when he had the symptoms. This happened only 1 1 time. Assessment 1. Persistent atrial fibrillation/flutter. Failed the flecainide and felt not to be a good candidate for sotalol or Tikosyn due to baseline prolonged QTc interval and prior treatment with hydroxychloroquine. He underwent RF ablation successfully with no recurrence since June 2023. His EKG showed sinus rhythm with few PACs and PVCs unchanged from before. His QTc interval remains elevated prolonged at 500 ms he was seen by our EP department 2. Long-term anticoagulation he is on elected to stay on Coumadin for cost reason. He underwent Watchman device recently the recommendation was to continue Coumadin for 3-month 3. Obesity with no significant weight changes 4. Hypertension controlled controlled with hydrochlorothiazide 5. Diabetes mellitus bribe reasonable control per his description his hemoglobin A1c is 6.5 6. Rheumatoid arthritis on prednisone and hydroxychloroquine 7. Continue complain of shortness of breath I suspect likely due to deconditioning and obesity. He had an echocardiogram recently that showed normal LV systolic function and previous stress test showed no evidence of myocardial ischemia Plan 1. Will continue to monitor his heart rhythm. 2. We discuss the duration of anticoagulation. Risk, benefit and alternative reviewed with patient he understood and agreed. He will stop Coumadin 3 months after the date of Watchman device implantation 3. Patient was counseled regarding losing weight, exercise and dietary modification. I advised him to discuss with his PCP treatment with Ozempic or Mounjaro 4. I will see him back in the office in 6 months 5. I reviewed his recent lab work, echocardiogram, hospitalization record and Watchman device CT Review of Systems Respiratory: Positive for shortness of breath. Neurological: Positive for light-headedness. All other systems reviewed and are negative. Vitals: 10/09/24 0856 BP: 132/86 BP Location: Left arm Patient Position: Sitting Pulse: 64 Weight: 100 kg (221 lb) Height: 1.676 m (5' 6 ) EKG done in office today Objective Physical Exam Constitutional: Appearance: Normal appearance. HENT: Nose: Nose normal. Neck: Vascular: No carotid bruit. Cardiovascular: Rate and Rhythm: Normal rate. Pulses: Normal pulses. Heart sounds: Normal heart sounds. Pulmonary: Effort: Pulmonary effort is normal. Abdominal: General: Bowel sounds are normal. Palpations: Abdomen is soft. Musculoskeletal: General: Normal range of motion. Cervical back: Normal range of motion. Right lower leg: No edema. Left lower leg: No edema. Skin: General: Skin is warm and dry. Neurological: General: No focal deficit present. Mental Status: He is alert. Psychiatric: Mood and Affect: Mood normal. Behavior: Behavior normal. Thought Content: Thought content normal. Judgment: Judgment normal. Allergies Penicillins Current Medications Current Outpatient Medications Medication Instructions abatacept (Orencia) 125 mg/mL injection Inject under the skin. acetaminophen (TYLENOL PO) 625 mg, As needed [START ON 12/26/2024] aspirin 81 mg, oral, Daily, Please start Aspirin in 3 months the day after youstop Warfarin. atorvastatin (Lipitor) 10 mg tablet 1 tablet, Daily baclofen (LIORESAL) 10 mg, Nightly PRN ferrous gluconate 324 (38 Fe) mg tablet 1 tablet, Daily hydroCHLOROthiazide (HYDRODiuril) 25 mg tablet 1 tablet, Daily hydroxychloroquine (Plaquenil) 200 mg tablet 1 tablet, 2 times daily insulin glargine (LANTUS U-100 INSULIN) 12 Units, As needed insulin lispro (HumaLOG) 100 unit/mL injection Daily leflunomide (Arava) 20 mg tablet 1 tablet, Daily losartan (COZAAR) 100 mg, oral, Daily melatonin 10 mg, Nightly PRN metFORMIN (GLUCOPHAGE) 500 mg, Daily RT omeprazole (PriLOSEC) [address] capsule 1 capsule, Daily predniSONE (DELTASONE) 5 mg, As needed warfarin (COUMADIN) 4 mg, oral, See admin instructions, Tuesday, and Tuesday: 6 mg. Tuesday, Tuesday, Tuesday, Tuesday: 8 mg. Resume Warfarin 09/26/2024. Continue Warfarin for 3 months post Watchman and until cleared to STOP after your post Watchman CT. Assessment/Plan 1. Persistent atrial fibrillation (Multi) ECG 12 Lead 2. Mixed hyperlipidemia 3. History of cardiac radiofrequency ablation (RFA) 4. Essential hypertension Follow Up In Cardiology 5. Typical atrial flutter (Multi) ECG 12 Lead 6. Shortness of breath 7. Type 2 diabetes mellitus without complication, with long-term current use of insulin 8. Anticoagulated 9. BMI 35.0-35.9,adult 10. Former smoker 11. Presence of Watchman left atrial appendage closure device Scribe Attestation By signing my name below, Lindsay Marie LPN , Scribe attest that this documentation has been prepared under the direction and in the presence of MD Jennifer. Provider Attestation - Scribe documentation All medical record entries made by the Scribe were at my direction and personally dictated by me. Ihave reviewed the chart and agree that the record accurately reflects my personal performance of the history, physical exam, discussion and plan. [facility] Work Phone: [phone]) 421-211708-19-2025 Instructions* Patient Instructions* Lindsay Nix LPN - 10/09/2024 9:00 AM EDT Please bring all medicines, vitamins, and herbal supplements with you when you come to the office. Prescriptions will not be filled unless you are compliant with your follow up appointments or have a follow up appointment scheduled as per instruction of your physician. Refills should be requested at the time of your visit. BMI was above normal measurement. Current weight: 100 kg (221 lb) Weight change since last visit (-) denotes wt loss -1 lbs Weight loss needed to achieve BMI 25: 66.4 Lbs Weight loss needed to achieve BMI 30: 35.5 Lbs Provided instructions on dietary changes. * Attachments The following attachments cannot be sent through Care Everywhere. * Heart Healthy Diet (Macanese) documented [facility] Work Phone: [phone]) 397-384508-06-2025 Nurse Note* Ashley Savage RN - 09/26/2024 1:45 PM EDT Discharge instructions were given via teach back method. Instructions included site care, restrictions, discharge medications and follow-up appointments. Patient verbally stated understanding and allfollow-up questions were answered correctly. In addition, patient was provided with his Watchman Device card and told to carry it with him in his wallet. On discharge, Right Groin remains stable. Dressing is clean/dry/intact; site is soft with no oozing or hematoma. Patient will be discharged to car by wheelchair once he is dressed and ready to go. [facility] Work Phone: [phone]) [phone] Nurse Note* Ashley Savage RN - 09/26/2024 1:45 PM EDT Discharge instructions were given via teach back method. Instructions included site care, restrictions, discharge medications and follow-up appointments. Patient verbally stated understanding and allfollow-up questions were answered correctly. In addition, patient was provided with his Watchman Device card and told to carry it with him in his wallet. On discharge, Right Groin remains stable. Dressing is clean/dry/intact; site is soft with no oozing or hematoma. Patient will be discharged to car by wheelchair once he is dressed and ready to go. * Ashley Savage RN - 09/26/2024 12:45 PM EDT Patient ambulated in lei to bathroom. No complaints of dizziness or light- headedness after ambulating. Right Groin remains stable after ambulation. * Ashley Savage RN - 09/26/2024 11:45 AM EDT HOB increased 30 degrees. No change in Right Groin with position change. Patient provided with water, fredis-cleopatra, and a boxed lunch. * Ashley Savage RN - 09/26/2024 10:45 AM EDT Patient arrived back to [facility] from Utilities Service Investigator s/p Watchman Device placement. On arrival tounit, focused assessment completed and WDL. Right Femoral venous sheath puncture sites x 2 are stable. Dressing is clean/dry/intact; site is soft with no oozing or hematoma. Patient is aware that he must remain lying flat for the first hour of his Recovery. After the first hour, his HOB can be raised 30 degrees for the remainder of his bedrest. Patient's is bedside. documented in this [facility] Work Phone: [phone] Hospital course Narrative* Lelo Lim, INSPECTOR MECHANICAL-REGULATORY CONSULTANT - 09/26/2024 1:15 PM EDT STRUCTURAL HEART INPATIENT DISCHARGE SUMMARY Admitting Provider: Javan Magallanes MD Discharge Provider: Javan Magallanes MD Primary Care Physician at Discharge: Richard Rodríguez MD [phone] Admission Date: 09/26/2024 Discharge Date: 09/26/2024 Primary Discharge Diagnosis Atrial Fibrillation/S/P Watchman LAAO device History of Present Illness Nereyda Barker is a 74 y.o. male with past medical history significant for persistent atrial fibrillation/a-flutter, anticoagulated with warfarin, hx of GI bleed, HTN, HLD, DM2, rheumatoid arthritis, obesity and was recently referred to body shop manager, Dr. Magallanes by knife blade polisher, Dr. [place] for evaluation for left atrial appendage closure. Patient [facility] to [facility] on 09/26/2024 for elective placement of a Watchman LAAO device. Hospital Course Nereyda Zoila Barker is stable status post successful placement of a 35 mm Watchman LAAO device via RFVx 2 Pro-glide closure devices on 09/26/2024 under the care of Dr. Magallanes. The patient tolerated the procedure well and there were no postprocedural complications. Please see procedural report for complete details. Right groin procedural access sites have remained stable, soft without signs of activebleeding or hematoma. Patient denies complaints of chest pain, shortness of breath, palpitations, abdominal pain, groin pain, numbness or tingling in the extremities. He has been up ambulating without difficulty after his bedrest/recovery. Postoperative echocardiogram reveals a stable EF and no sign ificant change of the pericardial space. Plan - Patient to be discharged to home today, 09/26/[address] Magallanes. - Patient to resume warfarin today and take as directed x 3 months, followed by aspirin 81 mg dailyfor life. - Continue all other previous home medications. - Outpatient follow-up has been arranged with Dr. Palmer in 2 to 3 weeks. - Repeat Watchman CTA in 3 months to reassess the device. - Watchman RN coordinator to follow-up per protocol. Physical Exam at Discharge Discharge Condition: good Heart Rate: 73 Resp: 15 BP: (!) 166/92 Temp: 36 C (96.8 F) Weight: 101 kg (222 lb 0.1 oz) Pertinent Physical Exam At Time of Discharge Physical Exam Vitals reviewed. Constitutional: Appearance: Normal appearance. He is obese. HENT: Head: Normocephalic and atraumatic. Nose: Nose normal. Mouth/Throat: Mouth: Mucous membranes are moist. Pharynx: Oropharynx is clear. Eyes: Pupils: Pupils are equal, round, and reactive to light. Cardiovascular: Rate and Rhythm: Normal rate and regular rhythm. Pulses: Normal pulses. Heart sounds: Normal heart sounds. Pulmonary: Effort: Pulmonary effort is normal. Breath sounds: Normal breath sounds. Abdominal: General: Bowel sounds are normal. Palpations: Abdomen is soft. Musculoskeletal: General: Normal range of motion. Cervical back: Normal range of motion and neck supple. Skin: General: Skin is warm and dry. Comments: Right groin procedural access site is stable, soft with no bleeding/hematoma or bruit. Neurological: General: No focal deficit present. Mental Status: He is alert and oriented to person, place, and time. Psychiatric: Mood and Affect: Mood normal. Behavior: Behavior normal. Home Medications Medication List START taking these medications aspirin 81 mg chewable tablet; Chew and swallow 1 tablet (81 mg) once daily. Please start Aspirin in 3 months the day after you stop Warfarin. Do not fill before December 26, 2024.; Start taking on: December 26, 2024 CONTINUE taking these medications atorvastatin 10 mg tablet; Commonly known as: Lipitor baclofen 10 mg tablet; Commonly known as: Lioresal ferrous gluconate 324 mg (38 mg elemental) tablet; Commonly known as: [place]ergon hydroCHLOROthiazide 25 mg tablet; Commonly known as: HYDRODiuril hydroxychloroquine 200 mg tablet; Commonly known as: Plaquenil insulin lispro 100 unit/mL injection Lantus U-100 Insulin 100 unit/mL injection; Generic drug: insulin glargine leflunomide 20 mg tablet; Commonly known as: Arava losartan 100 mg tablet; Commonly known as: Cozaar; Take 1 tablet (100 mg) by mouth once daily. melatonin 10 mg tablet metFORMIN 500 mg tablet; Commonly known as: Glucophage omeprazole [address] capsule; Commonly known as: PriLOSEC Orencia 125 mg/mL injection; Generic drug: abatacept predniSONE 5 mg tablet; Commonly known as: Deltasone TYLENOL PO warfarin 4 mg tablet; Commonly known as: Coumadin; Take 1 tablet (4 mg) by mouth see administration instructions. Tuesday, and Tuesday: 6 mg. Tuesday, Tuesday, Tuesday, Tuesday: 8 mg. Resume Warfarin 09/26/2024. Continue Warfarin for 3 months post Watchman and until cleared to STOP after your post Watchman CT. Outpatient Follow-Up Future Appointments Date Time Provider Department Center 10/09/2024 9:00 AM Jose Angel Palmer MD [id number] [place] 12/27/2024 8:30 AM [id number] 1 [id number] [place] 04/12/2025 10:40 AM Jose Angel Palmer MD [id number] [place] BYARON Garcia documented in this [facility] Work Phone: [phone] Nurse Note* Ashley Savage RN - 09/26/2024 12:45 PM EDT Patient ambulated in lei to bathroom. No complaints of dizziness or light- headedness after ambulating. Right Groin remains stable after ambulation. [facility] Work Phone: [phone] 117-754108-06-2025 Nurse Note* Ashley Savage RN - 09/26/2024 11:45 AM EDT HOB increased 30 degrees. No change in Right Groin with position change. Patient provided with water, fredis-cleopatra, and a boxed lunch. [facility] Work Phone: [phone] Hospital Discharge instructions* Discharge Instructions* Ashley Savage RN - 09/26/2024 10:58 AM EDT WATCHMAN DISCHARGE INSTRUCTIONS Anticoagulation Plan: Please resume your Warfarin as previously taking for 3 months post Watchman, then stop. Then start Aspirin 81 mg daily for life the day after your last dose of Warfarin. You will have a 3 month CTA to assess the effectiveness of the Watchman Device. General Instructions: DO NOT drink any alcoholic drinks or take any non-prescriptive medications that contain alcohol forthe first 24 hours. DO NOT make any important decisions for the first 24 hours. Activity: You are advised to go directly home from the hospital. DO NOT lift anything heavier than 10 pounds for one week, this allows for proper healing of the groin. No excessive exercise or treadmill use for one week. You may walk and do stairs, slowly. No sexual activities for 24 hours after you arrive home. Wound Care: If slight bleeding should occur at site, lie down and have someone apply firm pressure just above the puncture site for 5 minutes. If it continues or is profuse, call 911. Always notify your doctor if bleeding occurs. Dressing can be removed in 24 hours ---> 09/27/24 any time after 10:45 am Gently cleanse the puncture site in your groin with soap and water only. Keep site clean and dry. Let air dry or you may use a simple bandaid. You may experience some tenderness, bruising or minimal inflammation. If you have any concerns, youmay contact the Utilities Service Investigator or if any of these symptoms become excessive, contact your inspector firearms scottie to the emergency room. No tub baths, soaking, or swimming for one week. May shower the next day after your procedure. Diet: You may resume your normal diet. However it is better to start with liquids such as juices then soup and crackers, and gradually work up to solid foods. Other Instructions: If you develop difficulty breathing, rash, hives, severe nausea, vomiting, light-headedness or any signs of infection, immediately contact your doctor and go to the nearest emergency room. You must take your aspirin, clopidogrel (Plavix), prasugrel (Effient), or ticagrelor (Brilinta) every day without missing a single dose. If you are getting low on these medications, contact your physician immediately for a refill. - CALL 911 IF YOU HAVE ANY OF THE SIGNS AND SYMPTOMS OF HEART FAILURE: 1. Chest pain 2. SignificantShortness of breath 3. Fainting. Call Provider If (Home-going Patients): Breathing faster than normal. Breathing harder than normal or having retractions. Fever of 100.4 F (38 C) or higher. Chills. Drinking less than normal. Urinating less than normal, over 1 day. Acting very sleepy and difficult to awaken. Vomiting (throwing up) and not able to eat or drink for 12 hours. 3 or more loose, watery bowel movements in 24 hours (diarrhea). Any new concerning symptoms. Please call the STRUCTURAL HEART TEAM LINE if you have any questions or concerns - [phone] [facility] nurse coordinator Gemma Bruce's phone is [phone]. documented in this [facility] Work Phone: [phone] Surgery Postoperative evaluation and management note* Post-Procedure Note - Raghavendra Jones MD - 09/26/2024 10:47 AM EDT Physician Transition of Care Summary Invasive Cardiovascular Lab Procedure Date: 09/26/2024 Attending: Helder Magallanes - Primary Resident/Fellow/Other Office Equipment Mechanic: Surgeons and Role: * No surgeons found with a matching role * Indications: Pre-op Diagnosis * Persistent atrial fibrillation (Multi) [I48.19] * Encounter for examination for normal comparison and control in clinical research program [Z00.6] Post-procedure diagnosis: Post-op Diagnosis * Persistent atrial fibrillation (Multi) [I48.19] * Encounter for examination for normal comparison and control in clinical research program [Z00.6] Procedure(s): LAAO (Left Atrial Appendage Occlusion) 01415 - MS PERQ CLSR TCAT L ATR APNDGE W/ENDOCARDIAL IMPLNT Procedure Findings: Undersized after 1 attempt with a 40 mm device. Description of the Procedure: S/p BALDEMAR closure Access: Dual right femoral vein access s/p 2 proglide closure devices. Device: After confirmation of the device position on fluoroscopy and ICE, anchor with a tug test, compression and seal a 35 mm Watchman was successfully deployed without any immediate complications. No effusion on ICE was present pre and post watchman deployment. Complications: 2 recaptures Undersize of the device. Stents/Implants: Implants Other Cardiac Implant Device, Closure, 40mm Watchman Flx Pro Laac - [id number] - Used, Not Implanted Inventory item: DEVICE, CLOSURE, 40MM WATCHMAN FLX PRO LAAC Model/Cat number: [id number] Computer Engineering Technician: [employer] Lot number: [id number] Device identifier: [id number] GUDID Information Request status Request failed - device not in GUDID As of 09/26/2024 Status: Used, Not Implanted Device, Closure, 35mm Watchman Flx Pro Laac - [id number] - Implanted Inventory item: DEVICE, CLOSURE, 35MM WATCHMAN FLX PRO LAAC Model/Cat number: [id number] Computer Engineering Technician: [employer] Lot number: [id number] Device identifier: [id number] GUDID Information Request status Request failed - device not in GUDID As of 09/26/2024 Status: Implanted Anticoagulation/Antiplatelet Plan: warfarin Estimated Blood Loss: 10 mL Anesthesia: Moderate Sedation Anesthesia Staff: No anesthesia staff entered. Any Specimen(s) Removed: Order Name Source Comment Collection Info Order Time TYPE AND SCREEN Blood, Venous Collected By: Ashley Savage RN 09/26/2024 7:58 AM Release result to MyChart Immediate COMPREHENSIVE METABOLIC PANEL Blood, Venous Collected By: Ashley Savage RN 09/26/2024 7:58 AM Release result to MyChart Immediate CBC Blood, Venous Collected By: Ashley Savage RN 09/26/2024 7:58 AM Release result to MyChart Immediate COAGULATION SCREEN Blood, Venous Collected By: Ashley Savage RN 09/26/2024 7:58 AM Release result to MyChart Immediate Disposition: Warfarin for 3 months followed by ASA for life CT in 3 months Access site monitoring. TTE today Likely discharge home today once recovery and monitoring period is complete. Electronically signed by: Raghavendra Jones MD, 09/26/2024 10:47 AM [facility] Work Phone: [phone]) [phone] Miscellaneous Notes* Post-Procedure Note - Raghavendra Jones MD - 09/26/2024 10:47 AM EDT Physician Transition of Care Summary Invasive Cardiovascular Lab Procedure Date: 09/26/2024 Attending: * Javan Magallanes - Primary Resident/Fellow/Other Office Equipment Mechanic: Surgeons and Role: * No surgeons found with a matching role * Indications: Pre-op Diagnosis * Persistent atrial fibrillation (Multi) [I48.19] * Encounter for examination for normal comparison and control in clinical research program [Z00.6] Post-procedure diagnosis: Post-op Diagnosis * Persistent atrial fibrillation (Multi) [I48.19] * Encounter for examination for normal comparison and control in clinical research program [Z00.6] Procedure(s): LAAO (Left Atrial Appendage Occlusion) 15819 - MS PERQ CLSR TCAT L ATR APNDGE W/ENDOCARDIAL IMPLNT Procedure Findings: Undersized after 1 attempt with a 40 mm device. Description of the Procedure: S/p BALDEMAR closure Access: Dual right femoral vein access s/p 2 proglide closure devices. Device: After confirmation of the device position on fluoroscopy and ICE, anchor with a tug test, compression and seal a 35 mm Watchman was successfully deployed without any immediate complications. No effusion on ICE was present pre and post watchman deployment. Complications: 2 recaptures Undersize of the device. Stents/Implants: Implants Other Cardiac Implant Device, Closure, 40mm Watchman Flx Pro Laac - [id number] - Used, Not Implanted Inventory item: DEVICE, CLOSURE, 40MM WATCHMAN FLX PRO LAAC Model/Cat number: [id number] Computer Engineering Technician: [employer] Lot number: [id number] Device identifier: [id number] GUDID Information Request status Request failed - device not in GUDID As of 09/26/2024 Status: Used, Not Implanted Device, Closure, 35mm Watchman Flx Pro Laac - [id number] - Implanted Inventory item: DEVICE, CLOSURE, 35MM WATCHMAN FLX PRO LAAC Model/Cat number: [id number] Computer Engineering Technician: [employer] Lot number: [id number] Device identifier: [id number] GUDID Information Request status Request failed - device not in GUDID As of 09/26/2024 Status: Implanted Anticoagulation/Antiplatelet Plan: warfarin Estimated Blood Loss: 10 mL Anesthesia: Moderate Sedation Anesthesia Staff: No anesthesia staff entered. Any Specimen(s) Removed: Order Name Source Comment Collection Info Order Time TYPE AND SCREEN Blood, Venous Collected By: Ashley Savage RN 09/26/2024 7:58 AM Release result to [employer] Immediate COMPREHENSIVE METABOLIC PANEL Blood, Venous Collected By: Ashley Savage RN 09/26/2024 7:58 AM Release result to [employer] Immediate CBC Blood, Venous Collected By: Ashley Savage RN 09/26/2024 7:58 AM Release result to [employer] Immediate COAGULATION SCREEN Blood, Venous Collected By: Ashley Savage RN 09/26/2024 7:58 AM Release result to [employer] Immediate Disposition: Warfarin for 3 months followed by ASA for life CT in 3 months Access site monitoring. TTE today Likely discharge home today once recovery and monitoring period is complete. Electronically signed by: Raghavendra Jones MD, 09/26/2024 10:47 AM * Pre-Sedation Documentation - Raghavendra Jones MD - 09/26/2024 8:59 AM EDT Patient: Nereyda Barker NPO guidelines met: Yes Physical Exam Airway Mallampati: III Cardiovascular Dental Pulmonary Plan ASA 3 Mild [facility] Work Phone: [phone]) [phone] Nurse Note* Ashley Savage RN - 09/26/2024 10:45 AM EDT Patient arrived back to [facility] from Utilities Service Investigator s/p Watchman Device placement. On arrival tounit, focused assessment completed and WDL. Right Femoral venous sheath puncture sites x 2 are stable. Dressing is clean/dry/intact; site is soft with no oozing or hematoma. Patient is aware that he must remain lying flat for the first hour of his Recovery. After the first hour, his HOB can be raised 30 degrees for the remainder of his bedrest. Patient's is bedside. [facility] Work Phone: [phone]) 218-177408-06-2025 Nurse procedure note* Pre-Sedation Documentation - Raghavendra Jones MD - 09/26/2024 8:59 AM EDT Patient: Nereyda Barker NPO guidelines met: Yes Physical Exam Airway Mallampati: III Cardiovascular Dental Pulmonary Plan ASA 3 Mild [facility] Work Phone: [phone]) 299-528908-06-2025 History and physical note* Lelo Lim, INSPECTOR MECHANICAL-REGULATORY CONSULTANT - 09/26/2024 7:52 AM EDT History Of Present Illness Nereyda Barker is a 74 y.o. male with past medical history significant for persistent atrial fibrillation/a-flutter, anticoagulated with warfarin, hx of GI bleed, HTN, HLD, DM2, rheumatoid arthritis, obesity and was recently referred to body shop manager, Dr. Magallanes by knife blade polisher, Dr. Colorado for evaluation for left atrial appendage closure. Patient continues to have episodesof black tarry stools while on warfarin. His CHADS-VASC score is 3 and HAS-BLED score is 5. He is at increased risk for both bleeding and stroke and therefore is a reasonable candidate for left atrial appendage occluder placement. Patient is at [facility] today for this procedure under the care of Dr. Magallanes. Please refer to office note on 09/07/2024 for further details. 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 HENT: Negative. Eyes: Negative. Respiratory: Negative. Negative for chest tightness and shortness of breath. Cardiovascular: Negative. Negative for palpitations. Gastrointestinal: Negative. Endocrine: Negative. Genitourinary: Negative. Skin: Negative. Allergic/Immunologic: Negative. Neurological: Negative. Negative for dizziness and light-headedness. Psychiatric/Behavioral: Negative. All other systems reviewed and are negative. Physical Exam Vitals reviewed. Constitutional: Appearance: Normal appearance. He is obese. HENT: Head: Normocephalic and atraumatic. Nose: Nose normal. Mouth/Throat: Mouth: Mucous membranes are moist. Pharynx: Oropharynx is clear. Eyes: Pupils: Pupils are equal, round, and reactive to light. Cardiovascular: Rate and Rhythm: Normal rate and regular rhythm. Pulses: Normal pulses. Heart sounds: Normal heart sounds. Pulmonary: Effort: Pulmonary effort is normal. Breath sounds: Normal breath sounds. Abdominal: General: Bowel sounds are normal. Palpations: Abdomen is soft. Musculoskeletal: General: Normal range of motion. Cervical back: Normal range of motion and neck supple. Skin: General: Skin is warm and dry. Neurological: General: No focal deficit present. Mental Status: He is alert and oriented to person, place, and time. Psychiatric: Mood and Affect: Mood normal. Behavior: Behavior normal. Last Recorded Vitals Blood pressure 157/90, pulse 81, temperature 36 C (96.8 F), temperature source Temporal, resp. rate18, height 1.676 m (5' 6 ), weight 101 kg (222 lb 0.1 oz), SpO2 95%. Relevant Results Results for orders placed or performed during the hospital encounter of 09/26/24 (from the past 24 hours) Comprehensive Metabolic Panel Result Value Ref Range Glucose 128 (H) 74 - 99 mg/dL Sodium 140 136 - 145 mmol/L Potassium 4.2 3.5 - 5.3 mmol/L Chloride 104 98 - 107 mmol/L Bicarbonate 31 21 - 32 mmol/L Anion Gap 9 (L) 10 - 20 mmol/L Urea Nitrogen 16 6 - 23 mg/dL Creatinine 0.88 0.50 - 1.30 mg/dL eGFR >90 >60 mL/min/1.73m*2 Calcium 9.3 8.6 - 10.3 mg/dL Albumin 4.2 3.4 - 5.0 g/dL Alkaline Phosphatase 42 33 - 136 U/L Total Protein 6.5 6.4 - 8.2 g/dL AST 25 9 - 39 U/L Bilirubin, Total 0.7 0.0 - 1.2 mg/dL ALT 43 10 - 52 U/L CBC Result Value Ref Range WBC 3.5 (L) 4.4 - 11.3 x10*3/uL nRBC 0.0 0.0 - 0.0 /100 WBCs RBC 4.42 (L) 4.50 - 5.90 x10*6/uL Hemoglobin 13.7 13.5 - 17.5 g/dL Hematocrit 40.2 (L) 41.0 - 52.0 % MCV 91 80 - 100 fL MCH 31.0 26.0 - 34.0 pg MCHC 34.1 32.0 - 36.0 g/dL RDW 12.9 11.5 - 14.5 % Platelets 164 150 - 450 x10*3/uL Coagulation Screen Result Value Ref Range Protime 12.0 9.8 - 12.4 seconds INR 1.1 0.9 - 1.1 aPTT 28 26 - 36 seconds ECG 12 lead Result Value Ref Range Ventricular Rate 71 BPM Atrial Rate 71 BPM MS Interval 164 ms QRS Duration 90 ms QT Interval 400 ms QTC Calculation(Bazett) 434 ms P Holton 86 degrees R Holton 18 degrees T Holton 69 degrees QRS Count 12 beats Q Onset 225 ms P Onset 143 ms P Offset 184 ms T Offset 425 ms QTC Fredericia 423 ms Cardiology, Vascular, and Other Imaging ECG 12 lead Result Date: 09/26/2024 Sinus rhythm with occasional Premature ventricular complexes Nonspecific T wave abnormality Abnormal ECG No previous ECGs available CT Pre-Watchman 09/14/2024 IMPRESSION: 1. Left atrial appendage ostial orifice dimension 33 x 29 mm. 2. Left atrial appendage depth 43 mm. 3. No evidence of left atrial/left atrial appendage thrombus. Assessment/Plan Persistent atrial fibrillation/atrial flutter - Anticoagulated with warfarin/currently on hold for Watchman procedure - S/p PVI/CTI ablation on 07/13/2023 - CHADS-VASC score of 3 and HAS-BLED score of 5. - Left atrial appendage occluder placement today under the care of Dr. Magallanes 2. GI bleed 3. Benign essential hypertension -stable 4. Hyperlipidemia -on statin therapy 5. Diabetes mellitus 2 6. Rheumatoid arthritis 7. Obesity -BMI 37.3 Further recommendations pending procedure results. I spent 55 minutes in the professional and overall care of this patient. BAYRON Garcia [1] Past Medical History: Diagnosis Date Arrhythmia Atrial fibrillation (Multi) Diabetes mellitus (Multi) Hyperlipidemia Hypertension [2] Past Surgical History: Procedure Laterality Date ABLATION OF DYSRHYTHMIC FOCUS CARDIAC ELECTROPHYSIOLOGY PROCEDURE N/A 07/13/2023 Procedure: Ablation A-Fib; Surgeon: Gunner Colorado MD; Location: [place] [address] Cardiac Utilities Service Investigator; Service: Electrophysiology; Laterality: N/A; CARPAL TUNNEL RELEASE ESOPHAGOGASTRODUODENOSCOPY EYE SURGERY Right OTHER SURGICAL HISTORY 01/16/2021 Cardiac catheterization OTHER SURGICAL HISTORY 01/16/2021 Complete colonoscopy [3] Family History Problem Relation Name Age of Onset Cancer Mother Diabetes Father Hypertension Father Prostate cancer Brother [facility] Work Phone: [phone] History and physical note* Lelo Brody Raphael, INSPECTOR MECHANICAL-REGULATORY CONSULTANT - 09/26/2024 7:52 AM EDT History Of Present Illness Nereyda Barker is a 74 y.o. male with past medical history significant for persistent atrial fibrillation/a-flutter, anticoagulated with warfarin, hx of GI bleed, HTN, HLD, DM2, rheumatoid arthritis, obesity and was recently referred to body shop manager, Dr. Magallanes by knife blade polisher, Dr. Colorado for evaluation for left atrial appendage closure. Patient continues to have episodesof black tarry stools while on warfarin. His CHADS-VASC score is 3 and HAS-BLED score is 5. He is at increased risk for both bleeding and stroke and therefore is a reasonable candidate for left atrial appendage occluder placement. Patient is at [facility] today for this procedure under the care of Dr. Magallanes. Please refer to office note on 09/07/2024 for further details. 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 HENT: Negative. Eyes: Negative. Respiratory: Negative. Negative for chest tightness and shortness of breath. Cardiovascular: Negative. Negative for palpitations. Gastrointestinal: Negative. Endocrine: Negative. Genitourinary: Negative. Skin: Negative. Allergic/Immunologic: Negative. Neurological: Negative. Negative for dizziness and light-headedness. Psychiatric/Behavioral: Negative. All other systems reviewed and are negative. Physical Exam Vitals reviewed. Constitutional: Appearance: Normal appearance. He is obese. HENT: Head: Normocephalic and atraumatic. Nose: Nose normal. Mouth/Throat: Mouth: Mucous membranes are moist. Pharynx: Oropharynx is clear. Eyes: Pupils: Pupils are equal, round, and reactive to light. Cardiovascular: Rate and Rhythm: Normal rate and regular rhythm. Pulses: Normal pulses. Heart sounds: Normal heart sounds. Pulmonary: Effort: Pulmonary effort is normal. Breath sounds: Normal breath sounds. Abdominal: General: Bowel sounds are normal. Palpations: Abdomen is soft. Musculoskeletal: General: Normal range of motion. Cervical back: Normal range of motion and neck supple. Skin: General: Skin is warm and dry. Neurological: General: No focal deficit present. Mental Status: He is alert and oriented to person, place, and time. Psychiatric: Mood and Affect: Mood normal. Behavior: Behavior normal. Last Recorded Vitals Blood pressure 157/90, pulse 81, temperature 36 C (96.8 F), temperature source Temporal, resp. rate18, height 1.676 m (5' 6 ), weight 101 kg (222 lb 0.1 oz), SpO2 95%. Relevant Results Results for orders placed or performed during the hospital encounter of 09/26/24 (from the past 24 hours) Comprehensive Metabolic Panel Result Value Ref Range Glucose 128 (H) 74 - 99 mg/dL Sodium 140 136 - 145 mmol/L Potassium 4.2 3.5 - 5.3 mmol/L Chloride 104 98 - 107 mmol/L Bicarbonate 31 21 - 32 mmol/L Anion Gap 9 (L) 10 - 20 mmol/L Urea Nitrogen 16 6 - 23 mg/dL Creatinine 0.88 0.50 - 1.30 mg/dL eGFR >90 >60 mL/min/1.73m*2 Calcium 9.3 8.6 - 10.3 mg/dL Albumin 4.2 3.4 - 5.0 g/dL Alkaline Phosphatase 42 33 - 136 U/L Total Protein 6.5 6.4 - 8.2 g/dL AST 25 9 - 39 U/L Bilirubin, Total 0.7 0.0 - 1.2 mg/dL ALT 43 10 - 52 U/L CBC Result Value Ref Range WBC 3.5 (L) 4.4 - 11.3 x10*3/uL nRBC 0.0 0.0 - 0.0 /100 WBCs RBC 4.42 (L) 4.50 - 5.90 x10*6/uL Hemoglobin 13.7 13.5 - 17.5 g/dL Hematocrit 40.2 (L) 41.0 - 52.0 % MCV 91 80 - 100 fL MCH 31.0 26.0 - 34.0 pg MCHC 34.1 32.0 - 36.0 g/dL RDW 12.9 11.5 - 14.5 % Platelets 164 150 - 450 x10*3/uL Coagulation Screen Result Value Ref Range Protime 12.0 9.8 - 12.4 seconds INR 1.1 0.9 - 1.1 aPTT 28 26 - 36 seconds ECG 12 lead Result Value Ref Range Ventricular Rate 71 BPM Atrial Rate 71 BPM MS Interval 164 ms QRS Duration 90 ms QT Interval 400 ms QTC Calculation(Bazett) 434 ms P Holton 86 degrees R Holton 18 degrees T Holton 69 degrees QRS Count 12 beats Q Onset 225 ms P Onset 143 ms P Offset 184 ms T Offset 425 ms QTC Fredericia 423 ms Cardiology, Vascular, and Other Imaging ECG 12 lead Result Date: 09/26/2024 Sinus rhythm with occasional Premature ventricular complexes Nonspecific T wave abnormality Abnormal ECG No previous ECGs available CT Pre-Watchman 09/14/2024 IMPRESSION: 1. Left atrial appendage ostial orifice dimension 33 x 29 mm. 2. Left atrial appendage depth 43 mm. 3. No evidence of left atrial/left atrial appendage thrombus. Assessment/Plan Persistent atrial fibrillation/atrial flutter - Anticoagulated with warfarin/currently on hold for Watchman procedure - S/p PVI/CTI ablation on 07/13/2023 - CHADS-VASC score of 3 and HAS-BLED score of 5. - Left atrial appendage occluder placement today under the care of Dr. Magallanes 2. GI bleed 3. Benign essential hypertension -stable 4. Hyperlipidemia -on statin therapy 5. Diabetes mellitus 2 6. Rheumatoid arthritis 7. Obesity -BMI 37.3 Further recommendations pending procedure results. I spent 55 minutes in the professional and overall care of this patient. BAYRON Garcia [1] Past Medical History: Diagnosis Date Arrhythmia Atrial fibrillation (Multi) Diabetes mellitus (Multi) Hyperlipidemia Hypertension [2] Past Surgical History: Procedure Laterality Date ABLATION OF DYSRHYTHMIC FOCUS CARDIAC ELECTROPHYSIOLOGY PROCEDURE N/A 07/13/2023 Procedure: Ablation A-Fib; Surgeon: Gunner Colorado MD; Location: [place] [address] Cardiac Utilities Service Investigator; Service: Electrophysiology; Laterality: N/A; CARPAL TUNNEL RELEASE ESOPHAGOGASTRODUODENOSCOPY EYE SURGERY Right OTHER SURGICAL HISTORY 01/16/2021 Cardiac catheterization OTHER SURGICAL HISTORY 01/16/2021 Complete colonoscopy [3] Family History Problem Relation Name Age of Onset Cancer Mother Diabetes Father Hypertension Father Prostate cancer Brother documented in this [facility] Work Phone: [phone]) 450-939707-22-2025 History of Present illness Narrative* MONE Blakely - 09/11/2024 9:45 AM EDT Nereyda Barker is a 74 y.o. male presents with chief complaint of 6 Month Follow Up of Chronic Conditions (Review lab drawn 09/03/2024. EGD performed 08/06/2024. Appointment with Dr Magallanes, inspector firearms at [facility], on 09/07/2024 for persistent AFIB. Scheduled for CT 09/14.) and Medicare Annual Wellness Visit Subsequent HPI: History of Present Illness The patient is here for a 6-month office visit. He is insulin-dependent and diabetic, with an A1c of 6.6. He has essential hypertension, which is stable, and hyperlipidemia, with total cholesterol at148 and LDL at 75, both at goal. He has paroxysmal atrial fibrillation and follows up with his inspector firearms for this condition. He has iron deficiency anemia, but recent labs show no anemia. His rheumatoid arthritis is stable, and his B12 deficiency is being monitored, with the last level being normal. He has primary insomnia, which is stable, and obesity. His PSA was recently drawn and is normal. He had a colonoscopy at end of 2023 due to blood in stool, has this intermittently still and is going for watchman device soon to hopefully discontinue coumadin as per GI recommendation for recurrent blood in stool. He reports no chest pain but continues to experience blood in his stool. He underwent a colonoscopyat the end of last year and an endoscopy, which revealed gastric polyps causing bleeding into his stomach. He also has a hernia. His blood sugar levels have been well-controlled at home. He is scheduled for a CT scan this Tuesday, after which the Watchman procedure will be scheduled. His inspector firearms is Dr. Hargrove. He experiences bilateral buttock/hip and back pain, which was investigated through a CT scan. Despite being informed that there were no issues, he continues to experience pain. He occasionally experiences tingling or numbness in his right leg, extending to his buttock. He has tried physical therapywithin the last 6 months without relief. He finds relief when sleeping on a different bed and has switched to a hard bed at home. He can perform normal activities but experiences severe pain afterward. He rates his pain as 4 or 5 out of 10, his reports he is in much more pain than this and reports this is why she came to his appointment today to discuss his pain. He uses a cane for mobility and reports no bowel or bladder issues, including incontinence or numbness in the crotch area. The pain disrupts his sleep. He takes two Tylenol and gabapentin 500 mg at night to aid sleep which is his wives. He has found muscle relaxers helpful and is considering trying baclofen. Pt. can get up from the chair without using the arms of the chair in < 30 seconds. Denies issueswith depression. Denies more than 2 falls in the past year. Social History: Sleep: The patient reports disrupted sleep due to pain. PAST SURGICAL HISTORY: Colonoscopy at the end of last year. Endoscopy at the end of last year. I have reviewed and reconciled the history and medication list with the patient today. CURRENT PCP/CARE TEAM: Patient Care Team: Richard Rodríguez MD as PCP - General Richard Rodríguez MD as PCP - ACO Reach Agnes Hatfield APRN-ANTIONETTE as Nurse Practitioner (Dermatology) oJse Angel Palmer MD as Referring Physician (Cardiology) Maximiliano Belle MD as Referring Physician (Rheumatology) Eric Kemp MD as Consulting Physician Tianna Sauceda RN as Registered Nurse (Internal Medicine) Over the past 2 weeks, how often have you been bothered by any of the following problems? Little interest or pleasure in doing things: (Patient-Rptd) (P) Several days Feeling down, depressed, or hopeless: (Patient-Rptd) (P) Several days Patient Health Questionnaire-2 Score: (Patient-Rptd) (P) 2 Over the past 2 weeks, how often have you been bothered by any of the following problems? Trouble falling or staying asleep, or sleeping too much: (Patient-Rptd) (P) Several days Feeling tired or having little energy: (Patient-Rptd) (P) More than half the days Poor appetite or overeating: (Patient-Rptd) (P) More than half the days Feeling bad about yourself - or that you are a failure or have let yourself or your family down: (Patient-Rptd) (P) Not at all Trouble concentrating on things, such as reading the newspaper or watching television: (Patient-Rptd) (P) Not at all Moving or speaking so slowly that other people could have noticed? Or the opposite - being so fidgety or restless that you have been moving around a lot more than usual.: (Patient-Rptd) (P) Not at all Thoughts that you would be better off or hurting yourself in some way: (Patient-Rptd) (P) Not at all Patient Health Questionnaire-9 Score: (Patient-Rptd) (P) 7 Garces Fall Risk History of Falling, Immediate or Within 3 Months: (Patient-Rptd) (P) No Secondary Diagnosis: (Patient-Rptd) (P) No Ambulatory Aid: (Patient-Rptd) (P) Walks without aid/bedrest/nurse assist Gait/Transferring: (Patient-Rptd) (P) Normal/bedrest/immobile Mental Status: (Patient-Rptd) (P) Forgets limitations Health Risk Assessment Form Do you need help eating, bathing, using the toilet, dressing, or getting around your home?: (Patient-Rptd) (P) No Can you prepare your own meals?: (Patient-Rptd) (P) Yes Can you do your own housework without help?: (Patient-Rptd) (P) Yes Can you shop for groceries or clothes without help?: (Patient-Rptd) (P) Yes Do you exercise for about 20 minutes 3 or more days a week?: (Patient-Rptd) (P) No How confident are you that you can control and manage most of your health problems?: (Patient-Rptd)(P) Very confident Can you mange your money, credit cards and accounts, pay bills and taxes?: (Patient-Rptd) (P) Yes Cognitive Screening Three Word Registration: Apple, Watch, Lucina Clock Drawing: Normal Clock - 2 Three Word Recall: All 3 words correct - 3 Total Score (0-5 Points): 5 Pain Assessment Pain Score: (Patient-Rptd) (P) 3 HISTORIES: PAST MEDICAL HISTORY: Past Medical History: Diagnosis Date A-fib (HCC) Anemia Arthritis Asthma (HCC) Cataract Colon polyps Diverticulitis Essential hypertension Family history of cancer GERD (gastroesophageal reflux disease) HTN (hypertension) Hypercholesterolemia Measles Mild intermittent asthma without complication (HCC) 09/10/2024 Mumps Rheumatoid arthritis (HCC) Type 2 diabetes mellitus (HCC) Vitamin B12 deficiency SURGICAL HISTORY: Past Surgical History: Procedure Laterality Date COLONOSCOPY W/ POLYPECTOMY 2012 (Diverticulosis) COLONOSCOPY W/ POLYPECTOMY 2007 COLONOSCOPY W/ POLYPECTOMY 03/31/2018 COLONOSCOPY W/ POLYPECTOMY 11/03/2023 EGD 07/09/2019 (normal) HEART CATH 07/13/2023 Heart ablasion LIPOMA RESECTION 06/04/2021 Excision of painful lipomas left arm and forearm x 3 MASS EXCISION 02/17/2023 suprapubic mass NASAL POLYP EXCISION 2007 SOCIAL HISTORY: Social History Tobacco Use Smoking status: Former Current packs/day: 0.00 Types: Cigarettes Quit date: 02/21/2003 Years since quittin.5 Smokeless tobacco: Never Tobacco comments: Ex-heavy (20-30/day) Quit >10 years ago Vaping Use Vaping status: Never Used Substance Use Topics Alcohol use: Not Currently Comment: Caffeine: .4-5 cups/day coffee; soda/pop Drug use: Never Depression: Not at risk (09/10/2024) PHQ-2 PHQ-2 Score: 2 FAMILY HISTORY: Family History Problem Relation Name Age of Onset Cancer Mother Liban Hypertension Father Lucero Prostate cancer Brother Sven Cancer Brother Sven COPD Brother Sven Melanoma Neg Hx MEDICATIONS: Current Outpatient Medications Medication Instructions Abatacept (ORENCIA SC) Once monthly infusion acetaminophen (Tylenol 8 Hour Arthritis Pain) 650 MG ER tablet Every 12 hours atorvastatin (LIPITOR) 10 mg, Oral, Nightly clotrimazole (Lotrimin) 1 % cream 1 application , 2 times daily ferrous gluconate (FERGON) 324 mg, Daily hydroCHLOROthiazide (HYDRODIURIL) 25 mg, Oral, Every morning hydroxychloroquine (Plaquenil) 200 MG tablet 1 tablet, 2 times daily insulin glargine (Basaglar KwikPen) 100 UNIT/ML pen inject 12 units subcutaneously once daily insulin lispro (HumaLOG) 100 UNIT/ML injection 3 times daily with meals leflunomide (ARAVA) 20 mg, Daily losartan (COZAAR) 100 mg, Daily melatonin 10 MG tablet 1 tablet, Nightly PRN metFORMIN (GLUCOPHAGE) 500 mg, Oral, Daily with breakfast omeprazole (PRILOSEC) 40 mg, Oral, Daily warfarin (COUMADIN) 8 mg, See admin instructions ALLERGIES: Allergies Allergen Reactions Penicillins Hives, Itching, Rash, Swelling and Unknown Other Reaction(s): Hives PHYSICAL EXAM: Visit Vitals Pulse 77 Ht 5' 6 Wt 224 lb SpO2 96% BMI 36.15 kg/m Smoking Status Former BSA 2.18 m BP Readings from Last 3 Encounters: 04/16/24 138/70 03/07/24 126/88 09/22/23 122/90 Wt Readings from Last 3 Encounters: 09/11/24 224 lb 04/16/24 227 lb 03/07/24 227 lb Physical Exam General Examination: alert, oriented, normal affect, well-appearing, in no acute distress, well developed, well nourished. Head: normocephalic, atraumatic Eyes: sclera non-icteric Heart: regular rate and rhythm, S1, S2 normal, no carotid bruits Lungs: clear to auscultation bilaterally. No wheezes, rales, rhonchi. Extremities: no edema, no cyanosis MSK: limited AROM lumbar spine, minimal ttp lumbar paraspinal muscles L3-S1 b/l. Light touch bilateral LE intact. Psych: alert, oriented, cognitive function intact, cooperative with exam. Results Labs - A1c: 6.6 - Total cholesterol: 148 - LDL: 75 - PSA: Normal - CBC: No anemia - B12 level: Normal Imaging - X-ray of the low back: 05/2024, Mild lumbar spondylosis, grade 1 spondylolisthesis on L4-L5 facetarthritis, widening of the prevertebral planes - CT scan of the low back: No mass ASSESSMENT AND PLAN: Assessment & Plan 1. Insulin-dependent diabetes mellitus. - A1c is at 6.6, indicating good control of diabetes. - Recent labs show stable glucose levels. - Continued current insulin regimen. - Monitoring of blood sugar levels at home. 2. Essential hypertension. - Hypertension is stable. - Blood pressure readings within target range. - Continued current antihypertensive regimen. - Regular monitoring of blood pressure. 3. Hyperlipidemia. - Lipid profile at goal with total cholesterol of 148 and LDL of 75. - Recent labs confirm lipid levels within target range. - Continued current lipid-lowering regimen. - Regular lipid panel monitoring. 4. Paroxysmal atrial fibrillation. - Follows up with Dr. Valero for management. - Scheduled for a CT scan this Tuesday. - Watchman procedure to be scheduled post-CT scan. - Continued monitoring of symptoms and follow-up with inspector firearms. 5. Iron deficiency anemia. - Recent labs show no anemia. - CBC results indicate normal red blood cell count. - Continued monitoring of iron levels. - No current treatment required. 6. Rheumatoid arthritis. - Condition is stable. - No new symptoms reported. - Continued monitoring of joint health. - No changes in current treatment regimen. Follows with Dr. Belle. 7. B12 deficiency. - Last B12 level was normal. - Recent labs confirm adequate B12 levels. - Continued monitoring of B12 levels. 8. Primary insomnia. - Insomnia is stable. - No new symptoms reported. - Continued monitoring of sleep patterns. - No changes in current treatment regimen. 9. Obesity. - Diet and exercise discussed. - Emphasis on lifestyle modifications. - Continued monitoring of weight and BMI. - Encouraged adherence to dietary and exercise recommendations. 10. Medicare Wellness Seen by Moncho Elliott PA-C. Patient here for annual Medicare Wellness visit. Demographics were updated. Self-assessment was completed. Past medical, family, and social history were updated. The medication list, including supplements being taken, was updated. A list of other current medical providers was established/updated. Time was spent discussing health maintenance issues, ordering proper testing, and a schedule was provided regarding recommended screening. We discussed safety issues and fall risk. Depression screening was completed and addressed. Fall screening was completed and addressed. Cognitive function was assessed by direct observation and assessment of ability to perform ADL'sand IADL's was done. The current BMI was provide and will continue to be monitored at routine office visits as well. Major risk factors for chronic disease including family history were discussed christian list was provided with the care plan. - PSA recently drawn and is normal. - Colonoscopy performed in 2023. - Prevnar 20 vaccine to be administered today. - Regular health maintenance and preventive care. 11. Chronic back pain. - Chronic back pain with mild lumbar spondylosis and grade 1 spondylolisthesis on L4-L5 facet arthritis. - Recent CT scan showed no mass lesion. - MRI to be ordered for further investigation. He has already completed PT without relief. - Referral to Dr. Hatfield for potential steroid injections. - Baclofen prescribed for bedtime use to aid sleep and pain management. Stop using 's medications. 12. ACP Patient has living will, healthcare POA, wishes to be full code. Follow-up: Next scheduled visit in 6 months. Patient is here for follow up of the above chronic problems. I am following Dr. Rodríguez's established plan of care for these issues. Dr. Rodríguez was in the office suite today and is supervising patient care. documented in this encounterBarnes-Jewish West County [id number] History of Present illness Narrative* Javan Magallanes MD - 09/07/2024 11:30 AM EDT Images from the original note were not included. Chief complaint: Chief Complaint Patient presents with Follow-up Patient here per Dr. Colorado to discuss Watchman procedure. History of Present Illness Nereyda Barker is a 74 y.o. year old male patient with history of recurrent symptomatic persistent atrial fibrillation and atrial flutter. He is having black tarry stools, and the source of his GI bleeding has yet to be identified. He will have to continue on warfarin due to his elevated BLLQI1Juyl score. I was asked by Dr. Colorado to evaluate this patient in consultation for evaluation of left atrial appendage closure. Outpatient Medications: Current Outpatient Medications Medication Instructions abatacept (Orencia) 125 mg/mL injection Inject under the skin. acetaminophen (TYLENOL PO) 625 mg, As needed atorvastatin (Lipitor) 10 mg tablet 1 tablet, Daily ferrous gluconate 324 (38 Fe) mg tablet 1 tablet, Daily hydroCHLOROthiazide (HYDRODiuril) 25 mg tablet 1 tablet, Daily hydroxychloroquine (Plaquenil) 200 mg tablet 1 tablet, 2 times daily insulin glargine (LANTUS U-100 INSULIN) 12 Units, As needed insulin lispro (HumaLOG) 100 unit/mL injection Daily leflunomide (Arava) 20 mg tablet 1 tablet, Daily losartan (COZAAR) 100 mg, oral, Daily melatonin 10 mg, Nightly PRN metFORMIN (GLUCOPHAGE) 500 mg, Daily RT omeprazole (PriLOSEC) [address] capsule 1 capsule, Daily predniSONE (DELTASONE) 5 mg, As needed warfarin (COUMADIN) 4 mg Vitals: Vitals: 09/07/24 1145 BP: 120/80 Pulse: 68 Physical Exam: General: NAD, well-appearing HEENT: moist mucous membranes, no jaundice Neck: No JVD, no carotid bruit Lungs: CTA charles, no wheezing or rales Cardiac: RRR, no murmurs Abdomen: soft, non-tender, non-distended Extremities: 2+ radial pulses, No edema, 2+ palpable pulses Skin: warm, dry Neurologic: AAOx3, no focal deficits Assessment/Plan Diagnoses and all orders for this visit: Persistent atrial fibrillation (Multi) Typical atrial flutter (Multi) Essential hypertension Mixed hyperlipidemia Anticoagulated Type 2 diabetes mellitus without complication, with long-term current use of insulin Former smoker BMI 35.0-35.9,adult Other orders - Referral to Cardiology The CHADS-VASC score is 3 and HAS-BLED score is 5. The patient is at increased risk of both bleeding and stroke. As such the patient is a reasonable candidate for consideration of left atrial appendage occluder placement. Today we discussed the left atrial appendage closure procedure. The patient was given written educational handout materials and watched an educational video. All risks, benefits and alternative were discussed. The risks discussed included but were not limited to vascular complications, sedation related complications, risk of NE, CVA, device embolization, pericardial tamponade and . The patient verbalized understanding and decided to proceed. The patient requires CT for planning and to exclude BALDEMAR thrombus. In addition, the patient will also need a CT scan 4 months after the procedure, to evaluate the device for position, thrombus and whitley-device leak. Following device implant, strategy will be for dual antiplatelet therapy with aspirinand clopidogrel for 6 months then aspirin for life. Javan Magallanes MD, Ph,D, FESC Treatment Specialist - [facility] Film Coater of Structural and Valvular Heart Intervention - [facility] Madalyn Marie LPN am scribing for, and in the presence of Dr. Elpidio MD. Dr. Elpidio Marie MD, personally performed the services described in the documentation as scribed by Madalyn Espinosa LPN in my presence, and confirm it is both accurate and complete. Disclaimer: This note was dictated by speech recognition, and every effort has been made to prevent any error in radiology transcriptionist, however minor errors may be present documented in this encounterNorwalk Memorial Hospital Work Phone: [phone]) 220-754207-18-2025 Instructions* Patient Instructions* Madalyn Espinosa LPN - 09/07/2024 11:30 AM EDT Continue same medications and treatments. Patient educated on proper medication use. Patient educated on risk factor modification. Please bring any lab results from other providers / physicians to your next appointment. Please bring all medicines, vitamins, and herbal supplements with you when you come to the office. Prescriptions will not be filled unless you are compliant with your follow up appointments or have a follow up appointment scheduled as per instruction of your physician. Refills should be requested at the time of your visit. CT PRE-WATCHMAN ORDERED IMadalyn LPN, am scribing for and in the presence of Dr. Magallanes documented in this encounterNorwalk Memorial Hospital Work Phone: 1([phone]) 315-742907-09-2025 Evaluation note* Diagnosis Onset Date Resolution Status Admit Date Afib acuteJuly 2024 8:17amAfibacuteJuly 2024 9:50amArthritis of lumbosacral spineacuteAugust 2024 9:17amArthritis of sacroiliac jointacute Lorena 2024 9:17amChronic painacuteAugust 2024 9:17amAfibacuteAugust 2024 7:35amAfibacuteAugust 2024 8:07amArthritis of lumbosacral spineacuteSeptember 2024 9:34amArthritis of sacroiliac jointacuteSeptember 2024 9:34amChronic painacuteSeptember 2024 9:34amAfibacuteSeptember 2024 11:29amAfibacuteOctober 2024 9:56am [facility] Work Phone: 1(853) 215-596106-24-2025 History of Present illness Narrative* Gunner Colorado MD - 08/14/2024 10:30 AM EDT Images from the original note were not included. Referring Provider: Jose Angel Palmer MD Reason for Consult: Persistent atrial fibrillation History of Present Illness: Nereyda Barker is a 74 y.o. year old male patient with a history significant for persistent atrial fibrillation and atrial flutter, hypertension, diabetes, and rheumatoid arthritis on predniosne who is referred by Dr. Palmer for consideration of AF ablation. He was originally diagnosed with atrial fibrillation many years ago. Symptoms include fatigue and lack of energy. He was previously on propafenone and rhythmol and unfortunately broke through on these medications. He was recently admitted to [facility] for dofetilide loading, but developed a prolonged Qtc and was unable to continue on the medication. This was due to interaction with his RA meds, particularly HCQ, which he is unable to discontinue. Thus, he was referred for considerationof ablation. He underwent ablation on 07/13/2023. He underwent pulmonary vein isolation as well as CTI ablation for his persistent atrial fibrillation and atrial flutter. He has done well after the ablation with no complaints. He had a 7-day monitor 3 months after the ablation which showed no recurrent atrial arrhythmias and only PACs and PVCs. He continues to do well from the rhythm standpoint a year after ablation. However, he has had GI bleeding and black tarry stools. No source of the bleeding was found. He continues on warfarin. Focused Cardiovascular Problem List: Persistent atrial fibrillation/flutter: UVFIG8Gott = 3. On coumadin, INR goal 2- 3. Failed flecainide and propafenone previously, and unable to take dofetilide due to Qtc prolongation. Underwent PVI/CTI ablation on 07/13/2023 with no complications. No recurrent atrial arrhythmias on monitoring at 3 months. Obesity Hypertension Diabetes Mellitus Rheumatoid arthritis: On chronic prednisone and hydroxychloroquine as well as abatacept injections Suspected Sleep Apnea Past Medical and Surgical History: Mr. Barker has no past medical history on file. has a past surgical history that includes Other surgical history (01/16/2021); Other surgical history (01/16/2021); Carpal tunnel release; Cardiac electrophysiology procedure (N/A, 07/13/2023); Eye surgery (Right); and Esophagogastroduodenoscopy. 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 acetaminophen (TYLENOL PO) 625 mg, As needed atorvastatin (Lipitor) 10 mg tablet 1 tablet, Daily ferrous gluconate 324 (38 Fe) mg tablet 1 tablet, Daily hydroCHLOROthiazide (HYDRODiuril) 25 mg tablet 1 tablet, Daily hydroxychloroquine (Plaquenil) 200 mg tablet 1 tablet, 2 times daily insulin glargine (LANTUS U-100 INSULIN) 12 Units, As needed insulin lispro (HumaLOG) 100 unit/mL injection Daily leflunomide (Arava) 20 mg tablet 1 tablet, Daily losartan (COZAAR) 100 mg, oral, Daily melatonin 10 mg, Nightly PRN metFORMIN (GLUCOPHAGE) 500 mg, Daily RT omeprazole (PriLOSEC) [address] capsule 1 capsule, Daily predniSONE (DELTASONE) 5 mg, As needed warfarin (COUMADIN) 4 mg Objective Physical Exam: Last Recorded Vitals: 06/22/2023 9:40 AM 08/09/2023 11:05 AM 08/10/2023 1:29 PM 11/09/2023 1:06 PM 01/13/2024 9:58 AM 08/01/2024 1:24 PM 08/14/2024 10:35 AM Vitals Systolic 154 129 134 163 138 130 140 Diastolic 94 72 76 98 84 66 98 BP Location Left arm Left arm Right arm Right arm Left arm Heart Rate 89 83 84 75 72 92 76 Temp 36.2 C (97.2 F) 36.5 C (97.7 F) 35.8 C (96.4 F) Resp 20 16 18 Height 1.676 m (5' 6 ) 1.676 m (5' 6 ) 1.676 m (5' 6 ) 1.676 m (5' 6 ) 1.676 m (5' 6 ) 1.676 m (5' 6 ) 1.676 m (5' 6 ) Weight (lb) 230 223 224 223 233 231 231 BMI 37.12 kg/m2 35.99 kg/m2 36.15 kg/m2 35.99 kg/m2 37.61 kg/m2 37.28 kg/m2 37.28 kg/m2 BSA (m2) 2.2 m2 2.17 m2 2.18 m2 2.17 m2 2.22 m2 2.21 m2 2.21 m2 Visit Report Report Report Report Report Report Report Report Visit Vitals BP (!) 140/98 (BP Location: Left arm, Patient Position: Sitting) Pulse 76 Ht 1.676 m (5' 6 ) Wt 105 kg (231 lb) BMI 37.28 kg/m Smoking Status Former BSA 2.21 m Gen: NAD, sitting comfortably HEENT: NC/AT Card: Regular rate and rhythm, no m/r/g Pulm: Clear to auscultation bilaterally Ext: No LE edema Neuro: No focal deficits Diagnostic Results My Interpretation of Reviewed Study(s): Prior ECGs (reviewed and my interpretation): 08/14/2024: Sinus rhythm with occasional PVCs, otherwise normal exam 11/09/2023: Sinus rhythm with occasional PVCs, heart rate 76 bpm 08/09/2023: Sinus rhythm with premature atrial complexes, heart rate 72 bpm 06/22/2023: Atrial fibrillation with controlled ventricular response, frequent monomorphic PVCs, HR 89bpm Echocardiography: 10/09/2020 CONCLUSIONS: 1. The left ventricular systolic function is normal with a 60% estimated ejection fraction. 2. Spectral Doppler shows an impaired relaxation pattern of left ventricular diastolic filling. 3. RVSP within normal limits. 4. No significant changes noted when compared to prior study. Stress Test: 03/25/2022- Normal stress test Normal ejection fraction 57% Relevant Labs: No results found for: CREATININE , CCL , K , HGBA1C , HGB , INR , AST , ALT Assessment/Plan Assessment and Plan: In summary, patient is a pleasant 74 y.o.male with a history of recurrent symptomatic drug-refractory persistent atrial fibrillation and atrial flutter, has been maintained on propafenone and flecainide eventually failing them and unable to take dofetilide due to Qtc prolongation, who presents today for follow-up after recent catheter ablation with pulmonary vein isolation and CTI ablation on 07/13/2023. He is doing very well after ablation. His one year monitor, done one year after ablation, showed no recurrent atrial fibrillation. Unfortunately, he is having black tarry stools, and the source of his GI bleeding has yet to be identified. He will have to continue on warfarin due to his elevated [id number] score. I think given his ongoing bleeding and need for ongoing anticoagulation, he would be a good candidate for left atrial appendage occlusion. I will refer him to Dr. Magallanes for evaluation. Shared Decision Tool - Referral for Left Atrial Appendage Occlusion My patient Nereyda Barker 1950 has been evaluated by me and is referred to [facility] for a left atrial appendage implant due thromboembolic stroke risk from atrial fibrillation with CHADS2 score>= 2 or a [id number] score >= 3. This patient is not a good candidate for prison anticoagulation for the following reason(s): GI bleeding, black tarry stools This patient however should be able to tolerate short term anticoagulation as necessary for LAAO device implant. My Patient and I, the referring physician, have reviewed the following: Yes Atrial Fibrillation increases the risk of stroke. Yes Anticoagulants or blood thinners help reduce the risk of stroke for most people. Yes Blood thinners may cause minor or serious bleeding issues. Yes Blood thinners include the medications aspirin, warfarin, and NOAC (dabigatran, edoxaban, rivaroxaban, apixaban...), each with unique risk and safety profiles. Yes We reviewed his/her anticoagulation history and previous experiences. Yes We discussed lack of other alternative treatments available to prevent stroke risk. Yes We discussed the LAAO device implant vs taking anticoagulation to reduce stroke risk. Yes We referred the patient to a LAAO outpatient clinic for further explanation and consideration. Yes The LAAO device has been adequately explained along with the risks and benefits of treatment. Alternative treatment has been discussed with all questions answered. After discussion of the above considerations, it has been decided to be evaluated for the LAAO therapies. Reviewed and approved by GUNNER COLORADO on 08/14/24 at 11:20 AM. Recommendations: - Patient is in normal sinus rhythm after ablation - Continue current medication regimen - Continue to address underlying risk factors for atrial fibrillation including obesity, suspected sleep apnea, and hypertension - Referral to Dr. Magallanes for consideration of left atrial appendage occlusion Return to Clinic: As needed Thank you very much for allowing me to participate in the care of this patient. Please do not hesitate to contact me with any further questions or concerns. Gunner Colorado MD Clinical Cardiac Straw Boss, [facility] [place] [facility] Specialistmillinery designer, [facility] [employer] Director of Atrial Fibrillation Ablation, [facility] Consultant of Ventricular Arrhythmias Research, [facility] Office documented in this [facility] Work Phone: 1([phone]) 617-767206-23-2025 Chief complaint+Reason for visit Narrative * Chief Complaint Admit Date INR f/u post procedure August 13, 2024 1 2:39pm Z79.899 M05.79 M15.0 August 15, 2024 9:3 9am INR f/u August 29, 2024 8:17a m INR f/u September 10, 2024 9:50 am Ref: Ирина Elliott PA - Spondylosis Lumbar October 03, 2024 9:17am INR f/u see [facility] October 04, 2024 7: 35am LUMBAR PAIN October 16, 2024 7: 35am INR f/u October 18, 2024 8: 07am F/U CHARLES SI JOINT INJECTIONS October 9:34am INR f/u November 05, 2024 11:29am Reason for Visit Admit Date Afib August 13, 2024 12:3 9pm Afib August 29, 2024 8:17a m Afib September 10, 2024 9:50 am Arthritis of lumbosacral spine October 032024 9:17am Arthritis of sacroiliac joint September 9:17am Chronic pain October 03, 2024 9: 17am Afib October 04, 2024 7: 35am Afib October 18, 2024 8: 07am Arthritis of lumbosacral spine October 24, 2024 9:34am Arthritis of sacroiliac joint October 24, 2024 9:34am Chronic pain October 24, 2024 9:34am Afib November 05, 2024 11:29am [facility] Work Phone: 1([phone]) 808-537806-23-2025 Evaluation note* Diagnosis Onset Date Resolution Status Admit Date Afib acuteJune 2024 12:39pmAfibacuteJuly 2024 8:17amAfibacuteJuly 2024 9:50amArthritis of lumbosacral spineacuteAugust 2024 9:17amArthritis of sacroiliac jointacuteAugust 2024 9:17amChronic painacuteAugust 2024 9:17amAfibacuteAugust 2024 7:35amAfibacuteAugust 2024 8:07am Arthritis of lumbosacral spineacuteSeptember 2024 9:34amArthritis of sacroiliac jointacuteSeptember 2024 9:34amChronic painacuteSeptember 2024 9:34am [facility] Work Phone: 1(947) 188-535206-23-2025 Evaluation note* Diagnosis Onset Date Resolution Status Admit Date Afib acuteJune 2024 12:39pmAfibacuteJuly 2024 8:17amAfibacuteJuly 2024 9:50amArthritis of lumbosacral spineacuteAugust 2024 9:17amArthritis of sacroiliac jointacuteAugust 2024 9:17amChronic painacuteAugust 2024 9:17amAfibacuteAugust 2024 7:35amAfibacuteAugust 2024 8:07am Arthritis of lumbosacral spineacuteSeptember 2024 9:34amArthritis of sacroiliac jointacuteSeptember 2024 9:34amChronic painacuteSeptember 2024 9:34amAfibacuteSeptember 2024 11:29am [facility] Work Phone: 1(586) 574-785006-11-2025 History of Present illness Narrative* Jose Angel Palmer MD - 08/01/2024 1:20 PM EDT Chief Complaint Patient presents with Follow-up 6 month Follow up for Atrial Fibrillation Subjective Nereyda Barker is a 74 y.o. male HPI Patient is here for follow-up and continued management for atrial fibrillation. He failed flecainide in the past and was not a good candidate for Tikosyn or sotalol due to borderline prolonged QTc interval. He was referred for an ablation which was successful. Since his ablation he remains in sinusrhythm. He denies any complaint of chest pain, palpitation, lightheadedness, dizziness or syncope. He remains fairly active. His complaint is mainly related to his rheumatoid arthritis. In addition he is scheduled to undergo EGD in the near future. Assessment 1. Persistent atrial fibrillation/flutter. Failed the flecainide and felt not to be a good candidate for sotalol or Tikosyn due to baseline prolonged QTc interval and prior treatment with hydroxychloroquine. He underwent RF ablation successfully with no recurrence since June 2023. His EKG showed sinus rhythm with few PACs and PVCs 2. Long-term anticoagulation he is on elected to stay on Coumadin for cost reason 3. Obesity with no significant weight changes 4. Hypertension controlled controlled with hydrochlorothiazide 5. Diabetes mellitus bribe reasonable control per his description his hemoglobin A1c is 6.5 6. Rheumatoid arthritis on prednisone and hydroxychloroquine 7. Shortness of breath due to obesity and atrial fibrillation. His recent stress test was negative he reports improvement since restoring sinus mechanism. Plan 1. Will continue to monitor his heart rhythm. I reviewed his recent event monitor which failed to demonstrate A-fib 2. We discuss the duration of anticoagulation. Risk, benefit and alternative reviewed with patient he understood and agreed I told him that it is too early to switch to aspirin. Will continue to monitor for another year if he remain in sinus we might consider switching to aspirin down the road 3. Patient was counseled regarding losing weight, exercise and dietary modification 4. I will see him back in the office in 8 months with an EKG 5. I reviewed his recent lab work Review of Systems All other systems reviewed and are negative. Vitals: 08/01/24 1324 BP: 130/66 BP Location: Right arm Patient Position: Sitting Pulse: 92 Weight: 105 kg (231 lb) Height: 1.676 m (5' 6 ) EKG done in office today Objective Physical Exam Constitutional: Appearance: Normal appearance. HENT: Nose: Nose normal. Neck: Vascular: No carotid bruit. Cardiovascular: Rate and Rhythm: Normal rate. Pulses: Normal pulses. Heart sounds: Normal heart sounds. Pulmonary: Effort: Pulmonary effort is normal. Abdominal: General: Bowel sounds are normal. Palpations: Abdomen is soft. Musculoskeletal: General: Normal range of motion. Cervical back: Normal range of motion. Right lower leg: No edema. Left lower leg: No edema. Skin: General: Skin is warm and dry. Neurological: General: No focal deficit present. Mental Status: He is alert. Psychiatric: Mood and Affect: Mood normal. Behavior: Behavior normal. Thought Content: Thought content normal. Judgment: Judgment normal. Allergies Penicillins Current Medications Current Outpatient Medications Medication Instructions abatacept (Orencia) 125 mg/mL injection Inject under the skin. acetaminophen (TYLENOL PO) 625 mg, As needed atorvastatin (Lipitor) 10 mg tablet 1 tablet, Daily dabigatran etexilate (PRADAXA) 150 mg, oral, 2 times daily, Do not crush or chew. ferrous gluconate 324 (38 Fe) mg tablet 1 tablet, Daily hydroCHLOROthiazide (HYDRODiuril) 25 mg tablet 1 tablet, Daily hydroxychloroquine (Plaquenil) 200 mg tablet 1 tablet, 2 times daily insulin glargine (LANTUS U-100 INSULIN) 12 Units, As needed insulin lispro (HumaLOG) 100 unit/mL injection Daily leflunomide (Arava) 20 mg tablet 1 tablet, Daily losartan (COZAAR) 100 mg, oral, Daily melatonin 10 mg, Nightly PRN metFORMIN (GLUCOPHAGE) 500 mg, Daily RT omeprazole (PriLOSEC) [address] capsule 1 capsule, Daily predniSONE (DELTASONE) 5 mg, As needed warfarin (COUMADIN) 4 mg Assessment/Plan 1. Persistent atrial fibrillation (Multi) Follow Up In Cardiology Follow Up In Cardiology ECG 12 Lead 2. Mixed hyperlipidemia 3. History of cardiac radiofrequency ablation (RFA) 4. Essential hypertension 5. Typical atrial flutter (Multi) 6. Anticoagulated 7. Shortness of breath 8. BMI 37.0-37.9, adult 9. Former smoker Scribe Attestation By signing my name below, I, Dominga Montero LPN, Scribe attest that this documentation has been prepared under the direction and in the presence of MD Jennifer. Provider Attestation - Scribe documentation All medical record entries made by the Scribe were at my direction and personally dictated by me. Ihave reviewed the chart and agree that the record accurately reflects my personal performance of the history, physical exam, discussion and plan. documented in this encounterNorwalk Memorial Hospital Work Phone: [phone] [id number] Instructions* Patient Instructions* Dominga Martin LPN - 08/01/2024 1:20 PM EDT Please bring all medicines, vitamins, and herbal supplements with you when you come to the office. Prescriptions will not be filled unless you are compliant with your follow up appointments or have a follow up appointment scheduled as per instruction of your physician. Refills should be requested at the time of your visit. BMI was above normal measurement. Current weight: 105 kg (231 lb) Weight change since last visit (-) denotes wt loss -2 lbs Weight loss needed to achieve BMI 25: 76.4 Lbs Weight loss needed to achieve BMI 30: 45.5 Lbs Provided instructions on dietary changes. * Attachments The following attachments cannot be sent through Care Everywhere. * Health risks of obesity (Mac[place]) [facility] Work Phone: 1(787) 974-774006-10-2025 History of Present illness Narrative* Marilynn Wharton, DPM - 07/31/2024 2:15 PM EDT Images from the original note were not included. HPI: Nereyda Barker presents today for nailcare appointment. Patient is doing well with the padding toprevent the rubbing and pressure along the 5th toe. Patient denies being diabetic. No other complaints. Exam: General Examination: GENERAL APPEARANCE: awake, aware of surroundings, in no acute distress Vascular: DORSALIS PEDIS PULSE: 2/4, bilaterally POSTERIOR TIBIAL PULSE: 2/4, bilaterally TEMPERATURE GRADIENT: warm to cool EDEMA: none CAPILLARY FILLING TIME(sec): capillary fill inact bilateral digits less than 3 secs Neurologic: NEUROLOGIC: light touch is intact to the plantar foot Dermatologic: SKIN FINDINGS: bursitis to the left 5th digit is resolved. HYPERKERATOSIS: Sub-fifth MPJ bilateral greater on the right side NAIL PATHOLOGY: digits 1-5 bilateral are thickened, discolored, crumbly and with subungal debris. SKIN PATHOLOGY: texture, turgor, hair growth, within normal limits Orthopedic: FOOT MORPHOLOGY: neutral JOINT RANGE OF MOTION: without pain or crepitus to the ankle, subtalar joint and 1st MPJ bilateral DEFORMITIES: Angular fifth metatarsal deformity bilateral, medial deviation of the fifth digit PAIN ELICITED WITH PALPATION OF: None PAIN ELICITED WITH ROM: 2nd and 3rd MPJ bilateral MUSCLE STRENGTH: 5/5 for all pedal groups tested Assessments: Angular fifth metatarsal deformity bilateral Bursitis/neuroma bilateral Hyperkeratosis Onychomycosis Plan: 1. All mycotic and/or dystrophic nails were debrided in length and thickness by manual and mechanical means. 2. Advised patient of proper foot care to prevent any future complications including daily monitoring of the feet. 3. RTC: 9-12 weeks or as needed if problems arise as patient would like to continue to come in for routine nail care appointments to prevent future pain and problems developing from the overgrowth ofthe toenails. Callous: 1. Hyperkeratosis/porokeratosis as above noted was debrided. 2. Instructed patient on use of aperture pads or Silipos padding/toe spacers to prevent rubbing andcontinued development of the hyperkeratosis. 3. Also discussed use of moisturizing creams for overall increased hydration to the skin. 4. Discussed continued use of proper foot gear to avoid excess pressure over the callous site. Bursitis: Bursitis and pain to the sub 5th MPJ is much improved with the padding and callous trimming. Patient does not need additional treatment at this time due to his reduced symptoms unless additional pain/problems develop. documented in this encounterBarnes-Jewish [facility] HospitalRkecpacyaw56-12-2824 Telephone encounter Note* Telephone Encounter - Eva Cortez LPN - 07/30/2024 10:09 AM EDT Spoke with and yes he is taking 10 mg of Atorvastatin [place] [id number] Miscellaneous Notes* Telephone Encounter - Eva Cortez LPN - 07/30/2024 10:09 AM EDT Spoke with and yes he is taking 10 mg of Atorvastatin * Telephone Encounter - Richard Rodríguez MD - 07/29/2024 11:04 PM EDT Please call and see if he is on atorvastatin and let me know. documented in this encounterBarnes-Jewish [facility] [id number] Telephone encounter Note* Telephone Encounter - Richard Rodríguez MD - 07/29/2024 11:04 PM EDT Please call and see if he is on atorvastatin and let me know. [facility] [id number] Evaluation note* Diagnosis Onset Date Resolution Status Admit Date Afib acuteJune 2024 9:04amAfibacuteJune 2024 12:39pmAfibacuteJuly 2024 8:17amAfibacuteJuly 2024 9:50amArthritis of lumbosacral spineacute [place] 2024 9:17amArthritis of sacroiliac jointacuteAugust 2024 9:17amChronic painacuteAugust 2024 9:17amAfibacuteAugust 2024 7:35am AfibacuteAugust 2024 8:07am [facility] Work Phone: 1(491) 264-914605-28-2025 Evaluation note* Diagnosis Onset Date Resolution Status Admit Date Chronic anticoagulation acuteMay 2024 8:53amMelenaacuteMay 2024 8:53amAfibacuteJune 2024 9:04amAfibacuteJune 2024 12:39pmAfibacuteJuly 2024 8:17amAfib acuteJuly 2024 9:50amArthritis of lumbosacral spineacuteAugust 2024 9:17amArthritis of sacroiliac jointacuteAugust 2024 9:17amChronic pain acuteAugust 2024 9:17amAfibacuteAugust 2024 7:35am [facility] Work Phone: 1(856) 201-794105-20-2025 Evaluation note* Diagnosis Onset Date Resolution Status Admit Date Afib acuteMay 2024 10:23amChronic anticoagulationacuteMay 2024 8:53am MelenaacuteMay 2024 8:53amAfibacuteJune 2024 9:04amAfibacuteJune 2024 12:39pmAfibacuteJuly 2024 8:17amAfibacuteJuly 2024 9:50am [facility] Work Phone: 1(318) 624-402105-20-2025 Evaluation note* Diagnosis Onset Date Resolution Status Admit Date Afib acuteMay 2024 10:23amChronic anticoagulationacuteMay 2024 8:53am MelenaacuteMay 2024 8:53amAfibacuteJune 2024 9:04amAfibacuteJune 2024 12:39pmAfibacuteJuly 2024 8:17amAfibacuteJuly 2024 9:50am Arthritis of lumbosacral spineacuteAugust 2024 9:17amArthritis of sacroiliac jointacuteAugust 2024 9:17amChronic painacuteAugust 2024 9:17amAfibacuteAugust 2024 7:35am [facility] Work Phone: 1(670) 358-591104-21-2025 Evaluation note* Diagnosis Onset Date Resolution Status Admit Date Afib acuteApril 2024 10:17amAfibacuteMay 2024 10:23amChronic anticoagulationacuteMay 2024 8:53amMelenaacuteMay 2024 8:53amAfib acuteJune 2024 9:04amAfibacuteJune 2024 12:39pm [facility] Work Phone: 1([phone]) 946-350704-21-2025 Evaluation note* Diagnosis Onset Date Resolution Status Admit Date Afib acuteApril 2024 10:17amAfibacuteMay 2024 10:23amChronic anticoagulationacuteMay 2024 8:53amMelenaacuteMay 2024 8:53amAfib acuteJune 2024 9:04amAfibacuteJune 2024 12:39pmAfibacuteJuly 2024 8:17am [facility] Work Phone: 1([phone]) 533-203404-15-2025 History of Present illness Narrative* Agnes Hatfield, ROCHELLE-REGULATORY CONSULTANT - 06/05/2024 2:25 PM EDT Images from the original note were not included. Lesions: Location: Arms, legs and abdomen Duration: 1 month Quality: itchy Modifying factors: Cetaphil made it worse, cause it to itch and burn Associated symptoms: red, scaly Treatments: OTC Hydrocortisone, TAC 0.1%, X Ray Equipment Tester prescribed prednisone last week (15 mg x 3days then 5 mg x 3 days) Aquaphor helps a little. Was using Suave Men's soap and switched to Dove. Other Problem: Skin tag Location: right side Duration: months Modifying Factor rubs on clothing Treatments tried/failed: Tried OTC wart freeze, caused it to become very red and inflamed, painful Current treatment: none Established patient All pertinent medical history, medications, and allergies were reviewed. General Exam: alert, oriented to person, place, and time, normal affect, well appearing Unaccompanied A focused exam completed based on patient reported problems, see below: Skin Exam 1. OTHER ATOPIC DERMATITIS Generalized Nummular erythematous patches Discussed that atopic dermatitis is a chronic condition that can be controlled but not cured. Use TAC 0.1% cream bid prn when flared, hold if smooth/asymptomatic. Encouraged daily moisturizing and gentle cleansers to prevent flares. Notify office if flaring despite treatment. Patient declines refill of TAC cream, states he has 2 jars at home. 2. INFLAMED SKIN TAG (2) Right Flank (2) Pedunculated papules with surrounding erythema The patient was informed that skin tags are benign growths usually found around the neck or in the axillae. Due to symptoms/inflammation, removal performed today, see procedure note. Procedure: Skin tag removal Informed consent: Discussed risks (permanent scarring, infection, pain, bleeding, bruising, redness, and recurrence of the lesion) and benefits of the procedure, as well as the alternatives. He is aware that skin tags are benign lesions, and their removal is often not considered medically necessary. Informed consent was obtained. Anesthesia: 1% lidocaine with epinephrine and a 1:10 solution of 8.4% sodium bicarbonate, Quantity: 1.0 cc The area was prepared and draped in a standard fashion. Snip removal was performed. Bleeding was controlled with electrocautery A sterile pressure dressing was applied. The patient tolerated procedure well. The patient was instructed on post-op care. Number of lesions removed: 2 3. LOCALIZED TENDERNESS Next Visit: 1 month documented in this encounterBarnes-Jewish [facility] [id number] Evaluation note* Diagnosis Onset Date Resolution Status Admit Date Afib acuteMarch 2024 1:41pmAfibacuteApril 2024 10:17amAfibacuteMay 2024 10:23am [facility] Work Phone: 1(491) 477-855203-24-2025 Evaluation note* Diagnosis Onset Date Resolution Status Admit Date Afib acuteMarch 2024 1:41pmAfibacuteApril 2024 10:17amAfibacuteMay 2024 10:23amChronic anticoagulationacuteMay 2024 8:53amMelenaacuteMay 2024 8:53am [facility] Work Phone: 1([phone]) 360-761703-24-2025 Evaluation note* Diagnosis Onset Date Resolution Status Admit Date Afib acuteMarch 2024 1:41pmAfibacuteApril 2024 10:17amAfibacuteMay 2024 10:23amChronic anticoagulationacuteMay 2024 8:53amMelenaacuteMay 2024 8:53amAfibacuteJune 2024 9:04am [facility] Work Phone: 1([phone]) 386-996502-24-2025 History of Present illness Narrative* Will Tamez, DIANA - 04/16/2024 9:15 AM EST Images from the original note were not included. Nereyda Barker is a 74 y.o. male presents with chief complaint of Hip Pain (Pt has right hip painworse over the past month. Denies any known injury. He has not fallen, using a cane for ambulation.Taking Tylenol Arthritis, which does not help. He has attended [facility] and a chiropractor. He felt this made the pain worse. ) HPI: History of Present Illness The patient is a 74-year-old male who presents today for an acute visit for right hip pain. He reports experiencing severe pain in his right hip, which he quantifies as an 11 on a scale of 0 to 10, particularly during the night. The pain is localized to the lateral aspect of the hip and does not radiate into the buttock, groin, or down the leg. He has no history of falls or back surgeries. He has not undergone any radiographic imaging of the affected hip. He has not utilized topical Voltaren gel for symptom management but has attempted relief with a TENS unit, heat, and ice. He has previously sought relief through physical therapy, which unfortunately exacerbated his symptoms. In contrast, chiropractic interventions provided temporary relief, although the benefits were not sustaine d. His mobility is compromised, necessitating the use of a cane for ambulation. He expresses a preference against the use of narcotic analgesics. He has a known diagnosis of rheumatoid arthritis and is under the care of Dr. Mattson for this condition. His blood pressure is usually around 170 systolic. He took his blood pressure medication this morning. He is not watching his salt and caffeine intake to keep his blood pressure under control. MEDICATIONS Current: warfarin I have reviewed and reconciled the history and medication list with the patient today. HISTORIES: PAST MEDICAL HISTORY: Past Medical History: Diagnosis Date A-fib (CMS/[facility]) Anemia Arthritis Asthma (CMS/HCC) Cataract Colon polyps Diverticulitis Essential hypertension (CMS/HCC) Family history of cancer GERD (gastroesophageal reflux disease) HTN (hypertension) (CMS/HCC) Hypercholesterolemia (CMS/HCC) Measles Mumps Rheumatoid arthritis (CMS/HCC) Type 2 diabetes mellitus (CMS/HCC) Vitamin B12 deficiency SURGICAL HISTORY: Past Surgical History: Procedure Laterality Date COLONOSCOPY W/ POLYPECTOMY 2012 (Diverticulosis) COLONOSCOPY W/ POLYPECTOMY 2007 COLONOSCOPY W/ POLYPECTOMY 03/31/2018 COLONOSCOPY W/ POLYPECTOMY 11/03/2023 EGD 07/09/2019 (normal) HEART CATH 07/13/2023 Heart ablasion LIPOMA RESECTION 06/04/2021 Excision of painful lipomas left arm and forearm x 3 MASS EXCISION 02/17/2023 suprapubic mass NASAL POLYP EXCISION 2007 SOCIAL HISTORY: Social History Tobacco Use Smoking status: Former Current packs/day: 0.00 Types: Cigarettes Quit date: 02/21/2003 Years since quittin.1 Smokeless tobacco: Never Tobacco comments: Ex-heavy (20-30/day) Quit >10 years ago Vaping Use Vaping status: Never Used Substance Use Topics Alcohol use: Not Currently Comment: Caffeine: .4-5 cups/day coffee; soda/pop Drug use: Never Depression: Not at risk (09/07/2023) PHQ-2 PHQ-2 Score: 0 FAMILY HISTORY: Family History Problem Relation Name Age of Onset Cancer Mother Liban Hypertension Father Lucero Prostate cancer Brother Sven Cancer Brother Sven COPD Brother Sven Melanoma Neg Hx MEDICATIONS: Current Outpatient Medications Medication Instructions Abatacept (ORENCIA SC) Once monthly infusion acetaminophen (Tylenol 8 Hour Arthritis Pain) 650 MG ER tablet Every 12 hours atorvastatin (LIPITOR) 10 mg, Oral, Nightly clotrimazole (Lotrimin) 1 % cream 1 application , 2 times daily ferrous gluconate (FERGON) 324 mg, Daily hydroCHLOROthiazide (HYDRODiuril) 25 MG tablet TAKE ONE TABLET BY MOUTH EVERY MORNING hydroxychloroquine (Plaquenil) 200 MG tablet 1 tablet, 2 times daily insulin glargine (Basaglar KwikPen) 100 UNIT/ML pen inject 12 units subcutaneously once daily insulin lispro (HumaLOG) 100 UNIT/ML injection 3 times daily with meals leflunomide (ARAVA) 20 mg, Daily losartan (COZAAR) 100 mg, Daily melatonin 10 MG tablet 1 tablet, Nightly PRN metFORMIN (GLUCOPHAGE) 500 mg, Oral, Daily with breakfast omeprazole (PRILOSEC) 40 mg, Oral, Daily warfarin (COUMADIN) 8 mg, See admin instructions ALLERGIES: Allergies Allergen Reactions Penicillins Hives, Itching, Rash, Swelling and Unknown Other Reaction(s): Hives PHYSICAL EXAM: Visit Vitals BP 138/70 (BP Location: Left arm, Patient Position: Sitting) Pulse 81 Ht 5' 6 Wt 227 lb SpO2 97% BMI 36.64 kg/m Smoking Status Former BSA 2.19 m BP Readings from Last 3 Encounters: 04/16/24 138/70 03/07/24 126/88 09/22/23 122/90 Wt Readings from Last 3 Encounters: 04/16/24 227 lb 03/07/24 227 lb 09/22/23 224 lb Physical Exam Constitutional: Appearance: Normal appearance. He is overweight. HENT: Head: Normocephalic. Neck: Vascular: No carotid bruit. Cardiovascular: Rate and Rhythm: Regular rhythm. Heart sounds: Normal heart sounds. Musculoskeletal: Right lower leg: No edema. Left lower leg: No edema. Comments: Right hip pain. No tenderness of lateral right hip, No buttock pain, no palpable SI jointpain Skin: General: Skin is warm and dry. Neurological: Mental Status: He is oriented to person, place, and time. Psychiatric: Mood and Affect: Mood normal. Thought Content: Thought content normal. Judgment: Judgment normal. Results ASSESSMENT AND PLAN: Assessment & Plan 1. Right hip pain (Primary) - XR hip right 2 or 3 views -The clinical presentation suggests a potential diagnosis of bursitis; however, the absence of tenderness upon palpation of the affected area does not support this hypothesis. The possibility of arthritis can not be ruled out at this stage. An x-ray of the right hip, 2 views, will be ordered to further investigate the cause of the pain. He has been advised to apply Voltaren gel topically, with a frequency of twice daily for the higher strength formulation and four times daily for the lower strength version. The use of Tylenol Extra Strength has been recommended for pain management. He has also been instructed to avoid processed foods and limit his sodium intake to less than 1800 mg per day.If the x-ray results indicate significant arthritis, a referral to an orthopedic surgeon may be considered. 2. Other porphyria (CMS/HCC) -follows with [facility] 3. Essential hypertension (CMS/HCC) Pt. is to limit sodium to 1800 mg per day. Avoid canned soups & vegetables, boxed foods, like rice & frozen TV dinners. Do not add salt, garlic or onion salt to your food. Use Mrs. Jones whichhas no sodium. High/Low sodium list given to patient. -His blood pressure was elevated during the visit, likely due to white coat hypertension. A recheckshowed improvement to 138/70 mmHg. He has been advised to monitor his salt and caffeine intake to help manage his blood pressure. 4. Osteoarthritis of right hip, unspecified osteoarthritis type - XR hip right 2 or 3 views documented in this encounterBarnes-Jewish [facility] HospitalDrjoieipxf69-12-0116 Evaluation note* Diagnosis Onset Date Resolution Status Admit Date Afib acuteFebruary 2024 11:00amAfibacuteFebruary 2024 2:27pmAfibacuteMarch 2024 1:41pmAfibacuteApril 2024 10:17am [facility] Work Phone: 1([phone]) 356-187001-31-2025 History of Present illness Narrative* Jessie Bradley, PT - 03/23/2024 8:00 AM EST Images from the original note were not included. Physical Therapy Evaluation Visit Patient Name: Nereyda Barker Today's Date: 03/23/2024 Encounter Diagnoses Name Primary? Weakness of hip Yes Severe obesity (BMI 35.0-39.9) with comorbidity (CMS/HCC) Visit number: 1 Timed Code Treatment Minutes: 48 minutes Total Treatment Time: 58 minutes Time In: 0800 Time Out: 0900 History: Pt states he has been having pain in right hip for about one week. States he was sitting at a wrestling match for quite a few hours and since then has been having pain in right hip. Has since been using st cane for ambulation due to pain. Wakes up in the morning without much pain; however,having a hard time sleeping at night. Pt states he is a side sleeper and both laying on either sideis causing pain. Taking Neurotin which has helped with pain. Precautions: [place] Subjective: right hip; lateral and posterior joint Pain: 5/10 Objective: PT Evaluation (03/23/2024) Right HIP AROM: pain noted at end range trunk extension and right SB; active right hip flexion limited to approx 90 degrees PROM: right hip full with increase pain end range flexion MMT: strength right hip flexion and ER 4-5 Palpation: mod tenderness right SIJ and right greater trochanter Observation: right ant innominate rotation Special Test: posterior hip pain with hip scour and BRYCE Treatment: Education: HEP education with demonstration, Educated on Eval Findings and POC Manual Therapy: (12 minutes) Passive ROM, Joint mobilization, Soft Tissue Mobilization, Myofascial Release, Muscle Energy Technique, Neural Mobilization, Myofascial Cupping, Dry Needling, IASTM, and Scar mobilization as needed. Manual therapy to correct right ant innominate rotation. Therapeutic Exercise: (12 minutes) Strength, Endurance, Flexibility, ROM, HEP, Neural Mobilization,Power, and Core Stability as needed. Pt performed and instructed in home program this date; writteninstructions and pictures issued with good pt understanding. Therapeutic Activity: Exercises to improve dynamic activities, functional tasks, functional mobility to return to prior activity level as needed. Neuromuscular re-education: Balance Training, Muscle Facilitation, Dynamic Stability, Core Stabilization, and Blood Flow Restriction Training (BFRT) as needed. Modalities: Heat, Ice, Electrical Stimulation, Ultrasound, Cervical Mechanical Traction, Lumbar Mechanical Traction, Iontophoresis, and Fluidotherapy as needed. IFC/HP to right lower lumbar in sitting for pain X 10 minutes Assessment: Pt is 74 y/o male with complaints of right hip pain. Moderate tenderness right SIJ. Pt with increase pain right SIJ with BRYCE and right hip scour. Trunk extension and right SB limited due to increase pain. Pt instructed in home program and will benefit from further PT. Outcome Measure: Lower Extremity Functional Scale (LEFS): 37/80 Rehab Diagnosis: low back pain, right hip pain and weakness; decrease ROM and mobility Short Term Goal: To be met in 2 weeks Goal 1: Pt to be instructed in home exercise program. Psychometrician Goals: To be met in 10 weeks Goal 1: Pt to report independence and compliance with home program. Goal 2: Pt to report pain no greater than 2/10 in right lower lumbar with ADL's and functional tasks. Goal 3: Pt to achieve 4+/5 strength right hip to assist with functional mobility. Goal 4: Pt to score no less than 50/80 on LEFS indicating improved QOL. Pt will benefit from skilled PT for 2x/week from 03/23/2024 to 06/01/2024 to address the above impairments. I hereby deem this POC medically necessary. Please sign below. Date: documented in this encounterBarnes-Jewish West County [id number] History of Present illness Narrative* Haven Sanchez NP - 03/07/2024 9:45 AM EST Images from the original note were not included. Nereyda Barker is a 74 y.o. male presents with chief complaint of 6 Month Follow Up (Review lab drawn 02/24/2024, HbA1c = 6.5. Pt has not been on Atorvastatin and is not sure if he should be. This islisted on his med list but has no prescription.) HPI: History of Present Illness The patient presents for evaluation of diarrhea, rash, and elevated LDL. He has been experiencing chronic diarrhea for several years, which is managed with Imodium. He reports no instances of formed stools. His most recent colonoscopy was performed in October 2023, during which a few polyps were identified. He has not yet incorporated Metamucil into his diet but maintains a breakfast routine of shredded wheat. He reports no urgency to defecate immediately after meals but notes frequent bowel movements in the morning, typically 4 to 5 times, after which the symptoms subside. He is scheduled to consult with a critical care unit nurse. He has been experiencing persistent skin rashes for the past 2 to 3 weeks, which he describes as circular in nature. He has been applying Lotrimin to the affected areas, which appears to be effectivein resolving the rashes. He plans to follow up with Dermatology. He has been off atorvastatin for some time now, he is not sure what happened. At last visit he was taking this. He is not experiencing any chest pain or trouble breathing. He has been taking iron daily and has not experienced constipation from it. He has had black stoolsfor the past 3 to 4 years. He needs a referral for podiatry. He saw a cnc manufacturing engineer last year who removed some lumps from the bottom of his feet. MEDICATIONS Current: Iron, Imodium, Lotrimin Discontinued: Atorvastatin I have reviewed and reconciled the history and medication list with the patient today. HISTORIES: PAST MEDICAL HISTORY: Past Medical History: Diagnosis Date A-fib (CMS/HCC) Anemia Arthritis Asthma (CMS/HCC) Cataract Colon polyps Diverticulitis Essential hypertension (CMS/HCC) Family history of cancer GERD (gastroesophageal reflux disease) HTN (hypertension) (CMS/HCC) Hypercholesterolemia (CMS/HCC) Measles Mumps Rheumatoid arthritis (CMS/HCC) Type 2 diabetes mellitus (CMS/HCC) Vitamin B12 deficiency SURGICAL HISTORY: Past Surgical History: Procedure Laterality Date COLONOSCOPY W/ POLYPECTOMY 2012 (Diverticulosis) COLONOSCOPY W/ POLYPECTOMY 2007 COLONOSCOPY W/ POLYPECTOMY 03/31/2018 COLONOSCOPY W/ POLYPECTOMY 11/03/2023 EGD 07/09/2019 (normal) HEART CATH 07/13/2023 Heart ablasion LIPOMA RESECTION 06/04/2021 Excision of painful lipomas left arm and forearm x 3 MASS EXCISION 02/17/2023 suprapubic mass NASAL POLYP EXCISION 2007 SOCIAL HISTORY: Social History Tobacco Use Smoking status: Former Current packs/day: 0.00 Types: Cigarettes Quit date: 02/21/2003 Years since quittin.0 Smokeless tobacco: Never Tobacco comments: Ex-heavy (20-30/day) Quit >10 years ago Vaping Use Vaping status: Never Used Substance Use Topics Alcohol use: Not Currently Comment: Caffeine: .4-5 cups/day coffee; soda/pop Drug use: Never Depression: Not at risk (09/07/2023) PHQ-2 PHQ-2 Score: 0 FAMILY HISTORY: Family History Problem Relation Name Age of Onset Cancer Mother Liban Hypertension Father Lucero Prostate cancer Brother Sven Cancer Brother Sven COPD Brother Sven Melanoma Neg Hx MEDICATIONS: Current Outpatient Medications Medication Instructions Abatacept (ORENCIA SC) Once monthly infusion acetaminophen (Tylenol 8 Hour Arthritis Pain) 650 MG ER tablet Every 12 hours atorvastatin (LIPITOR) 10 mg, Oral, Nightly clotrimazole (Lotrimin) 1 % cream 1 application , 2 times daily ferrous gluconate (FERGON) 324 mg, Daily hydroCHLOROthiazide (HYDRODiuril) 25 MG tablet TAKE ONE TABLET BY MOUTH EVERY MORNING hydroxychloroquine (Plaquenil) 200 MG tablet 1 tablet, 2 times daily insulin glargine (Basaglar KwikPen) 100 UNIT/ML pen inject 12 units subcutaneously once daily insulin lispro (HumaLOG) 100 UNIT/ML injection 3 times daily with meals leflunomide (ARAVA) 20 mg, Daily losartan (COZAAR) 100 mg, Daily melatonin 10 MG tablet 1 tablet, Nightly PRN metFORMIN (GLUCOPHAGE) 500 mg, Oral, Daily with breakfast omeprazole (PRILOSEC) 40 mg, Oral, Daily warfarin (COUMADIN) 8 mg, See admin instructions ALLERGIES: Allergies Allergen Reactions Penicillins Hives, Itching, Rash, Swelling and Unknown Other Reaction(s): Hives PHYSICAL EXAM: Visit Vitals BP 126/88 (BP Location: Left arm, Patient Position: Sitting) Pulse 68 Ht 5' 6 Wt 227 lb SpO2 97% BMI 36.64 kg/m Smoking Status Former BSA 2.19 m BP Readings from Last 3 Encounters: 03/07/24 126/88 09/22/23 122/90 09/07/23 140/80 Wt Readings from Last 3 Encounters: 03/07/24 227 lb 09/22/23 224 lb 09/07/23 220 lb Physical Exam HENT: Right Ear: Tympanic membrane and external ear normal. Left Ear: Tympanic membrane and external ear normal. Mouth/Throat: Mouth: Mucous membranes are moist. Neck: Thyroid: No thyroid mass or thyromegaly. Vascular: No carotid bruit. Cardiovascular: Rate and Rhythm: Normal rate and regular rhythm. Heart sounds: No murmur heard. No friction rub. No gallop. Pulmonary: Effort: Pulmonary effort is normal. Breath sounds: Normal breath sounds. Abdominal: General: Bowel sounds are normal. Palpations: Abdomen is soft. Tenderness: There is no abdominal tenderness. Musculoskeletal: Right lower leg: No edema. Left lower leg: No edema. Lymphadenopathy: Cervical: No cervical adenopathy. Skin: General: Skin is warm and dry. Findings: Rash (non-raised rash on trunk/back) present. Neurological: Mental Status: He is alert and oriented to person, place, and time. Psychiatric: Thought Content: Thought content normal. Results Laboratory Studies LDL cholesterol was slightly elevated in August 2023. PSA level was 1.99. Iron and ferritin levels were excellent. A1c is 6.5, up from 6.2. Kidney function was good. Sodium, potassium, and liver function were all normal. ASSESSMENT AND PLAN: Assessment & Plan 1. Type 2 diabetes mellitus with diabetic neuropathy, unspecified (CMS/HCC) His A1c has increased from 6.2 to 6.5, but it remains below the target of 7. The specific goals of treatment, to include keeping the HbA1C less than 7.0 and the blood pressure less than 140/90, were reviewed. The blood pressure and most recent HbA1C were provided. Continue the current plan of eating a proper diabetic diet, exercising regularly, and taking prescribed medications. The patient was instructed to call the office if any problems arise. - Comprehensive metabolic panel; Future - Hemoglobin a1c with eag; Future - Comprehensive metabolic panel - Hemoglobin a1c with eag - Ambulatory referral to Podiatry; Future 2. Essential hypertension (CMS/HCC) (Primary) Doing well. Blood pressures have been good. Continue lifestyle modifications. Continue current medication. Call if any problems or if home blood pressures rising. - Comprehensive metabolic panel; Future - Microalbumin / creatinine urine ratio; Future - Urinalysis with microscopic; Future - Comprehensive metabolic panel - Microalbumin / creatinine urine ratio - Urinalysis with microscopic 3. Paroxysmal atrial fibrillation (CMS/HCC) Heart rate is controlled. The patient reports no symptoms. There have been no signs of any bleeding. Will continue current medication regimen. Call if any problems. 4. Mixed hyperlipidemia (CMS/HCC) His LDL levels were slightly elevated during his last consultation with Dr. Rodríguez in August 2023. He was previously on atorvastatin but has since discontinued its use but unsure why. A prescription for a 90-day supply of atorvastatin will be sent to [facility] pharmacy in [place]. He is advised to continue this medication, especially due to his diabetes and blood pressure conditions. - atorvastatin (Lipitor) 10 MG tablet; Take 1 tablet (10 mg) by mouth at bedtime Dispense: 90 tablet; Refill: 1 - Lipid panel; Future - Lipid panel 5. Rheumatoid arthritis involving multiple sites with positive rheumatoid factor (CMS/HCC) Stable. Continue to monitor. 6. Iron deficiency anemia, unspecified iron deficiency anemia type Stable. Continue to monitor. - CBC and differential; Future - CBC and differential 7. Moderate persistent asthma without complication (CMS/HCC) Stable. Continue to monitor. 8. Gastroesophageal reflux disease without esophagitis Stable. Continue current regimen. - omeprazole (PriLOSEC) [address] capsule; Take 1 capsule (40 mg) by mouth Daily Dispense: 90 capsule; Refill: 3 9. Benign prostatic hyperplasia without urinary obstruction Stable. Continue to monitor. 10. Primary insomnia Stable. Continue to monitor. 11. Vitamin B12 deficiency He is not taking supplement. Continue to monitor. - Vitamin B12; Future - Vitamin B12 12. Elevated PSA His PSA level is 1.99, which is within the normal range. He is advised to avoid activities such as bicycle riding and intercourse 24-48 hours before a PSA test. His PSA was 0.54 last check in 2023. He had prior elevation in 2019 was 1.53. - PSA; Future - PSA 13. Chronic diarrhea He reports having chronic diarrhea for years, which is managed with Imodium. He recently had a colonoscopy in October [address] Robb, which revealed a few polyps. He is not anemic, and his kidneyfunction, sodium, potassium, and liver function are all normal. He is advised to incorporate Metamucil powder into his diet to help bulk the stool. He is also advised to follow up with Dr. Robb, the critical care unit nurse, if symptoms persist. 14. Rash He reports having a rash for the past 2-3 weeks. He is advised against using Lotrimin on his back. 15. Morbid (severe) obesity due to excess calories (CMS/HCC) Encouraged to eat a healthy diet and exercise regularly. 15. BMI 36.0-36.9,adult As above. PROCEDURE Colonoscopy in October 2023 revealed a few polyps. documented in this encounterBarn[facility] [id number] Evaluation note* Diagnosis Onset Date Resolution Status Admit Date Afib acuteJanuary 2024 10:49amAfibacuteFebruary 2024 11:00amAfibacute April 09, 2024 2:27pm[facility]acute[facility] 2024 1:41pm [facility] Work Phone: 1([phone]) 194-216012-09-2024 Evaluation note* Diagnosis Onset Date Resolution Status Admit Date Afib acuteDeceer 2023 10:25amAfibacuteJanuary 2024 10:49amAfibacute March 29, 2024 11:00amAfibacuteFebruary 2024 2:27pm [facility] Work Phone: 1(403) 890-982111-22-2024 History of Present illness Narrative* Jose Angel Palmer MD - 01/13/2024 9:50 AM EST Subjective Nereyda Barker is a 73 y.o. male Chief Complaint Follow-up HPI Patient is here for follow-up continue management for persistent atrial fibrillation/flutter statuspost recent RF ablation in June with no recent recurrence. Long-term anticoagulation hypertension. Since last time I saw him he denies any chest pain, palpitation, lightheadedness, dizziness or syncope. He remains active. Described functional class II. His recent event monitor failed to demonstrate any arrhythmia. Assessment 1. Persistent atrial fibrillation/flutter. Failed the flecainide and felt not to be a good candidate for sotalol or Tikosyn due to baseline prolonged QTc interval and prior treatment with hydroxychloroquine. He underwent RF ablation successfully with no recurrence since June 2023 2. Long-term anticoagulation switch recently to Coumadin for cost issue 3. Obesity with no significant weight changes 4. Hypertension controlled 5. Diabetes mellitus bribe reasonable control 6. Rheumatoid arthritis on prednisone and hydroxychloroquine 7. Shortness of breath due to obesity and atrial fibrillation. His recent stress test was negative Plan 1. Will continue to monitor his heart rhythm. I reviewed his recent event monitor which failed to demonstrate A-fib 2. We discuss the duration of anticoagulation. Risk, benefit and alternative reviewed with patient he understood and agreed I told him we will leave him till next June if no recurrence we will consider switching to aspirin 3. Patient was counseled regarding losing weight, exercise and dietary modification 4. I suggested to him to check on Pradaxa 150 twice daily as an alternative to Coumadin patient in agreement 5. I will see him back in the office in 6 months with an EKG Review of Systems All other systems reviewed and are negative. Vitals: 01/13/24 0958 BP: 138/84 BP Location: Right arm Patient Position: Sitting Pulse: 72 Weight: 106 kg (233 lb) Height: 1.676 m (5' 6 ) Objective Physical Exam Constitutional: Appearance: Normal appearance. HENT: Nose: Nose normal. Neck: Vascular: No carotid bruit. Cardiovascular: Rate and Rhythm: Normal rate. Pulses: Normal pulses. Heart sounds: Normal heart sounds. Pulmonary: Effort: Pulmonary effort is normal. Abdominal: General: Bowel sounds are normal. Palpations: Abdomen is soft. Musculoskeletal: General: Normal range of motion. Cervical back: Normal range of motion. Right lower leg: No edema. Left lower leg: No edema. Skin: General: Skin is warm and dry. Neurological: General: No focal deficit present. Mental Status: He is alert. Psychiatric: Mood and Affect: Mood normal. Behavior: Behavior normal. Thought Content: Thought content normal. Judgment: Judgment normal. Allergies Penicillins Current Medications Current Outpatient Medications: abatacept (Orencia) 125 mg/mL injection, Inject under the skin., Disp: , Rfl: acetaminophen (TYLENOL PO), Take 625 mg by mouth if needed., Disp: , Rfl: atorvastatin (Lipitor) 10 mg tablet, Take 1 tablet (10 mg) by mouth once daily., Disp: , Rfl: ferrous gluconate 324 (38 Fe) mg tablet, Take 1 tablet (324 mg) by mouth once daily., Disp: , Rfl: hydroCHLOROthiazide (HYDRODiuril) 25 mg tablet, Take 1 tablet (25 mg) by mouth once daily., Disp: ,Rfl: hydroxychloroquine (Plaquenil) 200 mg tablet, Take 1 tablet (200 mg) by mouth 2 times a day., Disp:, Rfl: insulin glargine (Lantus U-100 Insulin) 100 unit/mL injection, Inject 12 Units under the skin if needed. Take as directed per insulin instructions., Disp: , Rfl: insulin lispro (HumaLOG) 100 unit/mL injection, Inject under the skin once daily. Take as directed per insulin instructions., Disp: , Rfl: leflunomide (Arava) 20 mg tablet, Take 1 tablet (20 mg) by mouth once daily., Disp: , Rfl: losartan (Cozaar) 100 mg tablet, Take 1 tablet (100 mg) by mouth once daily., Disp: 90 tablet, Rfl:3 melatonin 10 mg tablet, Take 1 tablet (10 mg) by mouth as needed at bedtime., Disp: , Rfl: omeprazole (PriLOSEC) [address] capsule, Take 1 capsule (40 mg) by mouth once daily., Disp: , Rfl: predniSONE (Deltasone) 5 mg tablet, Take 1 tablet (5 mg) by mouth if needed., Disp: , Rfl: dabigatran etexilate (Pradaxa) 150 mg capsule, Take 1 capsule (150 mg) by mouth 2 times a day. Do not crush or chew., Disp: 180 capsule, Rfl: 1 Assessment/Plan 1. Persistent atrial fibrillation (Multi) Follow Up In Cardiology Follow Up In Cardiology dabigatran etexilate (Pradaxa) 150 mg capsule 2. Typical atrial flutter (Multi) 3. History of cardiac radiofrequency ablation (RFA) 4. Mixed hyperlipidemia 5. Essential hypertension 6. Anticoagulated 7. Shortness of breath 8. Former smoker 9. BMI 37.0-37.9, adult Scribe Attestation By signing my name below, I, Josselyn BrodyEllis NATION , Juaquin attest that this documentation has been prepared under the direction and in the presence of MD Jennifer. Provider Attestation - Scribe documentation All medical record entries made by the Scribe were at my direction and personally dictated by me. Ihave reviewed the chart and agree that the record accurately reflects my personal performance of the history, physical exam, discussion and plan. documented [facility]Nor[facility] Work Phone: 1(721) 476-948811-22-2024 Instructions* Patient Instructions* Josselyn Robertson LPN - 01/13/2024 9:50 AM EST Please bring all medicines, vitamins, and herbal supplements with you when you come to the office. Prescriptions will not be filled unless you are compliant with your follow up appointments or have a follow up appointment scheduled as per instruction of your physician. Refills should be requested at the time of your visit. BMI was above normal measurement. Current weight: 106 kg (233 lb) Weight change since last visit (-) denotes wt loss 10 lbs Weight loss needed to achieve BMI 25: 78.4 Lbs Weight loss needed to achieve BMI 30: 47.5 Lbs Provided instructions on dietary changes Provided instructions on exercise. * Attachments The following attachments cannot be sent through Care Everywhere. * Heart Healthy Diet (Macanese) documented in this encounterNorwalk [facility] Hospital Work Phone: 1(713) 365-538011-14-2024 Evaluation note* Diagnosis Onset Date Resolution Status Admit Date Afib acuteNovember 2023 10:16amAfibacuteDecember 2023 10:25amAfibacute March 01, 2024 10:49amAfibacuteFebruary 2024 11:00am [facility] Work Phone: 1([phone]) 525-261210-24-2024 Evaluation note* Diagnosis Onset Date Resolution Status Admit Date Afib acuteOctober 2023 10:23amAfibacuteNovember 2023 10:16amAfibacute January 30, 2024 10:25amAfibacuteJanuary 2024 10:49am [facility] Work Phone: 1([phone]) 895-539709-18-2024 History of Present illness Narrative* Gunner Colorado MD - 11/09/2023 1:00 PM EDT Images from the original note were not included. Referring Provider: Jose Angel Palmer MD Reason for Consult: Persistent atrial fibrillation History of Present Illness: Nereyda Barker is a 73 y.o. year old male patient with a history significant for persistent atrial fibrillation and atrial flutter, hypertension, diabetes, and rheumatoid arthritis on predniosne who is referred by Dr. Palmer for consideration of AF ablation. He was originally diagnosed with atrial fibrillation many years ago. Symptoms include fatigue and lack of energy. He was previously on propafenone and rhythmol and unfortunately broke through on these medications. He was recently admitted to [facility] for dofetilide loading, but developed a prolonged Qtc and was unable to continue on the medication. This was due to interaction with his RA meds, particularly HCQ, which he is unable to discontinue. Thus, he was referred for considerationof ablation. He underwent ablation on 07/13/2023. He underwent pulmonary vein isolation as well as CTI ablation for his persistent atrial fibrillation and atrial flutter. He has done well after the ablation with no complaints. He is doing well today. He had a 7-day monitor 3 months after the ablation which showed no recurrent atrial arrhythmias and only PACs and PVCs. Focused Cardiovascular Problem List: Persistent atrial fibrillation/flutter: [id number] = 3. On coumadin, INR goal 2- 3. Failed flecainide and propafenone previously, and unable to take dofetilide due to Qtc prolongation. Underwent PVI/CTI ablation on 07/13/2023 with no complications. No recurrent atrial arrhythmias on monitoring at 3 months. Obesity Hypertension Diabetes Mellitus Rheumatoid arthritis: On chronic prednisone and hydroxychloroquine as well as abatacept injections Suspected Sleep Apnea Past Medical and Surgical History: Mr. Barker has no past medical history on file. has a past surgical history that includes Other surgical history (01/16/2021); Other surgical history (01/16/2021); Carpal tunnel release; and Cardiac electrophysiology procedure (N/A, 07/13/2023). 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 Other: Lives at home with marychuy Relevant Family History: Family History Problem Relation Name Age of Onset Cancer Mother Diabetes Father Hypertension Father Prostate cancer Brother Allergies: Allergies Allergen Reactions Penicillins Hives and Itching Medications: Current Outpatient Medications Medication Instructions abatacept (Orencia) 125 mg/mL injection subcutaneous acetaminophen (TYLENOL PO) 625 mg, oral, As needed atorvastatin (Lipitor) 10 mg tablet 1 tablet, oral, Daily ferrous gluconate 324 (38 Fe) mg tablet 1 tablet, oral, Daily fluticasone propion-salmeteroL (Advair Diskus) 250-50 mcg/dose diskus inhaler 1 puff, inhalation, 2times daily RT, As directed hydroCHLOROthiazide (HYDRODiuril) 25 mg tablet 1 tablet, oral, Daily hydroxychloroquine (Plaquenil) 200 mg tablet 1 tablet, oral, 2 times daily insulin glargine (LANTUS U-100 INSULIN) 12 Units, subcutaneous, As needed, Take as directed per insulin instructions. insulin lispro (HumaLOG) 100 unit/mL injection subcutaneous, Daily, Take as directed per insulin instructions. leflunomide (Arava) 20 mg tablet 1 tablet, oral, Daily losartan (COZAAR) 100 mg, oral, Daily melatonin 10 mg, oral, Nightly PRN metFORMIN (GLUCOPHAGE) 500 mg, oral, Daily with breakfast omeprazole (PriLOSEC) [address] capsule 1 capsule, oral, Daily predniSONE (DELTASONE) 5 mg, oral, As needed warfarin (COUMADIN) 8 mg, oral, As directed by [facility] Coumadin clinic
Sun, Tue, Wed, Fri,Sat. Takes 6 mg on Tuesday and and 8 mg all other days of week. Objective Physical Exam: Last Recorded Vitals: 01/25/2023 3:48 PM 05/19/2023 1:39 PM 06/15/2023 1:11 PM 06/22/2023 9:40 AM 08/09/2023 11:05 AM 08/10/2023 1:29 PM 11/09/2023 1:06 PM Vitals Systolic 134 126 128 154 129 134 163 Diastolic 84 82 86 94 72 76 98 Heart Rate 93 86 89 89 83 84 75 Temp 36.2 C (97.2 F) 36.5 C (97.7 F) 35.8 C (96.4 F) Resp 20 16 18 Height (in) 1.676 m (5' 6 ) 1.676 m (5' 6 ) 1.676 m (5' 6 ) 1.676 m (5' 6 ) 1.676 m (5' 6 ) 1.676 m(5' 6 ) 1.676 m (5' 6 ) Weight (lb) 228 237 226 230 223 224 223 BMI 36.8 kg/m2 38.25 kg/m2 36.48 kg/m2 37.12 kg/m2 35.99 kg/m2 36.15 kg/m2 35.99 kg/m2 BSA (m2) 2.19 m2 2.24 m2 2.19 m2 2.2 m2 2.17 m2 2.18 m2 2.17 m2 Visit Report Report Report Report Report Report Report Visit Vitals BP (!) 163/98 Pulse 75 Temp 35.8 C (96.4 F) Resp 18 Ht 1.676 m (5' 6 ) Wt 101 kg (223 lb) SpO2 97% BMI 35.99 kg/m Smoking Status Former BSA 2.17 m Gen: NAD, sitting comfortably HEENT: NC/AT Card: Regular rate and rhythm, no m/r/g Pulm: Clear to auscultation bilaterally Ext: No LE edema Neuro: No focal deficits Diagnostic Results My Interpretation of Reviewed Study(s): Prior ECGs (reviewed and my interpretation): 11/09/2023: Sinus rhythm with occasional PVCs, heart rate 76 bpm 08/09/2023: Sinus rhythm with premature atrial complexes, heart rate 72 bpm 06/22/2023: Atrial fibrillation with controlled ventricular response, frequent monomorphic PVCs, HR 89bpm Echocardiography: 10/09/2020 CONCLUSIONS: 1. The left ventricular systolic function is normal with a 60% estimated ejection fraction. 2. Spectral Doppler shows an impaired relaxation pattern of left ventricular diastolic filling. 3. RVSP within normal limits. 4. No significant changes noted when compared to prior study. Stress Test: 03/25/2022- Normal stress test Normal ejection fraction 57% Relevant Labs: No results found for: CREATININE , CCL , K , HGBA1C , HGB , INR , AST , ALT Assessment/Plan Assessment and Plan: In summary, patient is a pleasant 73 y.o.male with a history of recurrent symptomatic drug-refractory persistent atrial fibrillation and atrial flutter, has been maintained on propafenone and flecainide eventually failing them and unable to take dofetilide due to Qtc prolongation, who presents today for follow-up after recent catheter ablation with pulmonary vein isolation and CTI ablation on 07/13/2023. He is doing very well after ablation. He has not had any clinical recurrence of atrial fibrillation, and his EKG today shows normal sinus rhythm with PACs. He is doing well today without any recurrent atrial fibrillation on his recent monitor. We will continue his current medication regimen. I have ordered another monitor to be done in June 2024, 1 year after the ablation. If he does not have any recurrent atrial arrhythmias on this monitor, then this is a very good sign that he will have durable success of his ablation. 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 He will have to be maintained on anticoagulation due to his high CHADS2-Vasc, even despite successful ablation per guideline recommendations. Recommendations: - Patient is in normal sinus rhythm after ablation - Continue current medication regimen - Patch monitor for 7 days at 12 months after ablation to assess for recurrent atrial fibrillation. - Continue to address underlying risk factors for atrial fibrillation including obesity, suspected sleep apnea, and hypertension - If he does have recurrent atrial fibrillation, could consider another trial of class Ic antiarrhythmics as they may be more effective after ablation. Touchup ablation could also be considered if needed. Return to Clinic: in July 2024 Thank you very much for allowing me to participate in the care of this patient. Please do not hesitate to contact me with any further questions or concerns. Gunner Colorado MD Clinical Cardiac Straw Boss, [facility] Specialistmillinery designer, [employer] [facility] [employer] Director of Atrial Fibrillation Ablation, [facility] Consultant of Ventricular Arrhythmias Research, [facility] Office documented in this [facility] Work Phone: 1(839) 725-837409-12-2024 History and physical note Author Tamika Brink [facility] November 03, 2023 8:38amNote Date/TimeSept2023 8:16am[place] [address] Gastroenterology H&P Signed Patient: Nereyda Barker MR#: [id number] : 1950 Acct:[id number] Age/Sex: 73 / M Adm Date: 4 Loc: Room: Type: [facility] Attending Dr: Tamika Brink DO Copies to: DO Richard Yuen MD~ Date of Service: 11/03/2023 HISTORY & PHYSICAL: Patient's history with special attention to the cardiovascular, pulmonary systems and the current problem was reviewed with the patient immediately prior to the procedure. Present medications and doses reviewed in the EMR. Allergies and pertinent laboratory tests were also re viewedat this time in the EMR. The physical examination, as below, was then performed. Indication, assessment and HPI: 73-year-old male who presents for colonoscopy for personal history of colon polyps. He has a family history of colon ca in a maternal grandparent. Last colonoscopy perDr. Boyer in 2019 reviewed in EMR. Family history of GI malignancy? Maternal grandparent with colon cancer PHYSICAL EXAMINATION General appearance: cooperative, NAD Skin: No jaundice, no rash or lesions Head: NCAT Eyes: Anicteric Neck: Supple Lungs: Normal respiratory effort, no use of accessory muscles Abdomen: Soft, nondistended Neuro: No focal deficits, Ox3. REVIEW OF SYSTEMS Constitutional: Denies malaise, fevers Cardiovascular: Denies chest pain, palpitations Respiratory: Denies shortness of breath, wheezing Gastrointestinal: As per HPI Genitourinary: Denies dysuria, polyuria Musculoskeletal: Denies joint swelling, joint stiffness Neurological: Denies confusion, numbness, tingling Endocrine: Denies fatigue Written informed consent obtained from the patient. Risks (including but not limited to perforation, infection, bloating, bleeding, need for emergent surgeryand loss of life), benefits and alternatives explained and questions answered. The patient verbalized understanding. Based on history patient is an appropriate candidate for the procedure. Tamika Brink DO Present medication and doses reviewed in the EMR Documented By: Tamika Brink DO 11/03/2315 Signed By: <Electronically signed by Tamika Brink DO> 11/03/23 0838 [facility] Work Phone: 1(181) 722-543009-12-2024 [facility]* Diagnosis Onset Date Resolution Status Admit Date Afib acuteSept2023 10:01amAfibacuteSeptember 2023 7:26amAfibacute November 24, 2023 11:20amAfibacuteOctober 2023 10:23amAfibacuteNovember 2023 10:16am [facility] Work Phone: 1([phone]) 537-253109-04-2024 History of Present illness Narrative* Carol Thurston PTA - 10/26/2023 1:20 PM EDT Patient was called due to cancellation of therapy appointments and to suggest scheduling. Pt reports he is feeling better and does not require therapy at this time. documented in this encounterBarnes-Jewish West County [id number] History of Present illness Narrative* Eric Alexandre, PT - 10/18/2023 10:30 AM EDT Physical Therapy Evaluation Visit Patient Name: Nereyda Barker Today's Date: 10/18/2023 Encounter Diagnoses Name Primary? Chronic neck pain Visit number: 1 Timed Code Treatment Minutes: 60 minutes Total Treatment Time: 60 minutes Time In: 1030 Time Out: 1130 History: Pt. Presents to PT with c/c of right neck pain which started over a month ago. Insidious onset. Occasional N/T in clavicle bone area. Reports pain is mostly at night which increases while looking down. 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 Subjective Pain: 1/10 today; 6/10 at night Objective: PT Evaluation Neck ROM: flexion normal, extension decreased 50% due to poor posture, rotation R 45 deg, L 45 deg,Side bending R 30 deg, L 30 deg. Shoulder ROM WFL Posture: moderate bilateral rounded shoulders Palpation: TTP right upper trapezius with trigger point Strength: right shoulder 4+/5, scapular 4-/5 Joint: hypomobility at C5-7 Flexibility: moderate right upper trapezius muscle tightness Treatment: PT evaluation (20 minutes) Education: HEP education with demonstration, Educated on Eval Findings and POC Manual Therapy: (15 minutes) supine: Cervical distraction, right UT stretching, cervical mobs, Passive ROM, Joint mobilization, Soft Tissue Mobilization, Myofascial Release, Muscle Energy Technique, Neural Mobilization, Myofascial Cupping, Dry Needling, IASTM, and Scar mobilization Therapeutic Exercise: (10 minutes) exercises in grid; Strength, Endurance, Flexibility, ROM, HEP, Neural Mobilization, Power, and Core Stability Therapeutic Activity: Exercises to improve dynamic activities, functional tasks, functional mobility to return to prior activity level Neuromuscular re-education: Balance Training, Muscle Facilitation, Dynamic Stability, Core Stabilization, and Blood Flow Restriction Training (BFRT) Modalities: Heat, Ice, Electrical Stimulation, Ultrasound, Cervical Mechanical Traction, Lumbar Mechanical Traction, Iontophoresis, and Fluidotherapy DN: right upper trapezius, fanning, 1x needles, pt. Was agreeable and tolerated tx well. 5x LTRs Assessment: Pt. Has participated in 1 PT session with start of POC on 10/18/23 for neck pain. Pt. Will benefit from skilled PT services. PT treatment to focus on improving neck mobility/scapular strength. Outcome Measure: in chart Rehab Diagnosis: neck pain, UT tightness, scapular weakness Short Term Goal: To be met in 2 weeks Goal 1: Pt to be instructed in home exercise program. [facility]ci Goals: To be met in 10 weeks Goal 1: Pt to report independence and compliance with home program. Goal 2: Pt. Will demonstrate normal cervical ROM in rotation and side bending to help decrease painand improve his functional mobility and less neck pain at night. Goal 3: Pt. Will demonstrate normal right upper trapezius muscle flexibility to help decrease pain. Goal 4: Pt. Will demonstrate 5/5 scapular strength to help improve upright posture. Goal 5: Pt. Will score 10% or less on neck index. Pt will benefit from skilled PT for 2-3x/week from 10/18/2023 to 12/27/2023 to address the above impairments. I hereby deem this POC medically necessary. Please sign below. Date: documented in this encounterBarnes-Jewish West County [id number] History of Present illness Narrative* Jose Angel Palmer MD - 08/10/2023 1:40 PM EDT Subjective Nereyda Barker is a 73 y.o. male Chief Complaint Follow-up HPI Patient is here for follow-up continue management for history of atrial fibrillation/flutter. He failed both flecainide and Rythmol. Entertain the idea of placing him on dofetilide unfortunately while in the hospital we noticed that his baseline QTc is prolonged he did convert but his QTc [place] became fairly long and considering he has been on hydroxychloroquine I felt antiarrhythmic is not a good option with him he was referred for ablation which she underwent successfully by Dr. Colorado. Since then the patient report he feels well. He denies lightheadedness, dizziness or syncope. Described functional class I. Assessment 1. Persistent atrial fibrillation/flutter. Failed the flecainide and felt not to be a good candidate for sotalol or Tikosyn due to baseline prolonged QTc interval and prior treatment with hydroxychloroquine. He underwent he has not had any recurrence ablation successfully. 2. Long-term anticoagulation switch recently to Coumadin for cost issue 3. Obesity 4. Hypertension controlled 5. Diabetes mellitus 6. Rheumatoid arthritis on prednisone and hydroxychloroquine 7. Shortness of breath due to obesity and atrial fibrillation. His recent stress test was negative Plan 1. Will continue to monitor his heart rhythm. Based on Dr. Colorado's recommendation we will do a 7-day monitor in September 2. We discuss the duration of anticoagulation. Risk, benefit and alternative reviewed with patient he understood and agreed 3. Patient was counseled regarding losing weight, exercise and dietary modification 4. We discussed the duration of anticoagulation and I told him for the time being I would rather keep him on anticoagulation for 6 months to a year at least considering his CHADS2 vascular score and will reassess down the road. Risk, benefit and alternative anticoagulation reviewed he understood and agreed Review of Systems Review of Systems Cardiovascular: Positive for chest pain. Vitals: 08/10/23 1329 BP: 134/76 BP Location: Left arm Patient Position: Sitting Pulse: 84 Weight: 102 kg (224 lb) Height: 1.676 m (5' 6 ) Objective Physical Exam Constitutional: Appearance: Normal appearance. HENT: Nose: Nose normal. Neck: Vascular: No carotid bruit. Cardiovascular: Rate and Rhythm: Normal rate. Pulses: Normal pulses. Heart sounds: Normal heart sounds. Pulmonary: Effort: Pulmonary effort is normal. Abdominal: General: Bowel sounds are normal. Palpations: Abdomen is soft. Musculoskeletal: General: Normal range of motion. Cervical back: Normal range of motion. Right lower leg: No edema. Left lower leg: No edema. Skin: General: Skin is warm and dry. Neurological: General: No focal deficit present. Mental Status: He is alert. Psychiatric: Mood and Affect: Mood normal. Behavior: Behavior normal. Thought Content: Thought content normal. Judgment: Judgment normal. Allergies Penicillins Current Medications Current Outpatient Medications: abatacept (Orencia) 125 mg/mL injection, Inject under the skin., Disp: , Rfl: acetaminophen (TYLENOL PO), Take 625 mg by mouth if needed., Disp: , Rfl: atorvastatin (Lipitor) 10 mg tablet, Take 1 tablet (10 mg) by mouth once daily., Disp: , Rfl: ferrous gluconate 324 (38 Fe) mg tablet, Take 1 tablet (324 mg) by mouth once daily., Disp: , Rfl: fluticasone propion-salmeteroL (Advair Diskus) 250-50 mcg/dose diskus inhaler, Inhale 1 puff 2 times a day. As directed, Disp: , Rfl: hydroCHLOROthiazide (HYDRODiuril) 25 mg tablet, Take 1 tablet (25 mg) by mouth once daily., Disp: ,Rfl: hydroxychloroquine (Plaquenil) 200 mg tablet, Take 1 tablet (200 mg) by mouth 2 times a day., Disp:, Rfl: insulin glargine (Lantus U-100 Insulin) 100 unit/mL injection, Inject 12 Units under the skin if needed. Take as directed per insulin instructions., Disp: , Rfl: insulin lispro (HumaLOG) 100 unit/mL injection, Inject under the skin once daily. Take as directed per insulin instructions., Disp: , Rfl: leflunomide (Arava) 20 mg tablet, Take 1 tablet (20 mg) by mouth once daily., Disp: , Rfl: losartan (Cozaar) 100 mg tablet, TAKE ONE TABLET BY MOUTH DAILY, Disp: 90 tablet, Rfl: 0 melatonin 10 mg tablet, Take 1 tablet (10 mg) by mouth as needed at bedtime., Disp: , Rfl: metFORMIN (Glucophage) 500 mg tablet, Take 1 tablet (500 mg) by mouth once daily with breakfast., Disp: , Rfl: omeprazole (PriLOSEC) [address] capsule, Take 1 capsule (40 mg) by mouth once daily., Disp: , Rfl: predniSONE (Deltasone) 5 mg tablet, Take 1 tablet (5 mg) by mouth if needed., Disp: , Rfl: warfarin (Coumadin) 4 mg tablet, Take 2 tablets (8 mg) by mouth. As directed by [facility] Coumadin clinic Sun, Tue, Tue, Tue,Sat. Takes 6 mg on Tuesday and and 8 mg all other days of week., Disp: , Rfl: pantoprazole (ProtoNix) 40 mg EC tablet, Take 1 tablet (40 mg) by mouth 2 times a day. Do not crush, chew, or split., Disp: 60 tablet, Rfl: 0 Assessment/Plan 1. Typical atrial flutter (Multi) 2. 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 Essential hypertension 4. Mixed hyperlipidemia 5. Anticoagulated 6. BMI 36.0-36.9,adult 7. Rheumatoid arthritis, involving unspecified site, unspecified whether rheumatoid factor present (Multi) 8. Shortness of breath Scribe Attestation By signing my name below, I, Bibiana Blair LPN, Scribe attest that this documentation has been prepared under the direction and in the presence of MD Jennifer. Provider Attestation - Scribe documentation All medical record entries made by the Scribe were at my direction and personally dictated by me. Ihave reviewed the chart and agree that the record accurately reflects my personal performance of the history, physical exam, discussion and plan. documented in this encounterNorwalk [facility] Hospital Work Phone: 1(997) 684-757606-19-2024 Instructions* Patient Instructions* Bibiana Hernandez LPN - 08/10/2023 1:40 PM EDT Please bring all medicines, vitamins, and herbal supplements with you when you come to the office. Prescriptions will not be filled unless you are compliant with your follow up appointments or have a follow up appointment scheduled as per instruction of your physician. Refills should be requested at the time of your visit. 7 day event monitor in 3 months Nov follow up Same meds BMI was above normal measurement. Current weight: 102 kg (224 lb) Weight change since last visit (-) denotes wt loss 1 lbs Weight loss needed to achieve BMI 25: 69.4 Lbs Weight loss needed to achieve BMI 30: 38.5 Lbs Provided instructions on dietary changes Provided instructions on exercise. documented in this encounterNorwalk Memorial Hospital Work Phone: 1(733) 976-257106-18-2024 History of Present illness Narrative* Gunner Colorado MD - 08/09/2023 11:00 AM EDT Images from the original note were not included. Referring Provider: Jose Angel Palmer MD Reason for Consult: Persistent atrial fibrillation History of Present Illness: Nereyda Barker is a 73 y.o. year old male patient with a history significant for persistent atrial fibrillation and atrial flutter, hypertension, diabetes, and rheumatoid arthritis on predniosne who is referred by Dr. Palmer for consideration of AF ablation. He was originally diagnosed with atrial fibrillation many years ago. Symptoms include fatigue and lack of energy. He was previously on propafenone and rhythmol and unfortunately broke through on these medications. He was recently admitted to [facility] for dofetilide loading, but developed a prolonged Qtc and was unable to continue on the medication. This was due to interaction with his RA meds, particularly HCQ, which he is unable to discontinue. Thus, he was referred for considerationof ablation. He underwent ablation on 07/13/2023. He underwent pulmonary vein isolation as well as CTI ablation for his persistent atrial fibrillation and atrial flutter. He has done well after the ablation with no complaints. He is doing well today. He had some episodes of what he thought was atrial fibrillation that were recorded on his spigit mobile, but these look like episodes of sinus rhythm with PACs and PVCs. His EKG today shows normal sinus rhythm. Focused Cardiovascular Problem List: Persistent atrial fibrillation/flutter: [id number] = 3. On coumadin, INR goal 2- 3. Failed flecainide and propafenone previously, and unable to take dofetilide due to Qtc prolongation. Underwent PVI/CTI ablation on 07/13/2023 with no complications. Obesity Hypertension Diabetes Mellitus Rheumatoid arthritis: On chronic prednisone and hydroxychloroquine as well as abatacept injections Suspected Sleep Apnea Past Medical and Surgical History: Mr. Barker has no past medical history on file. has a past surgical history that includes Other surgical history (01/16/2021); Other surgical history (01/16/2021); Carpal tunnel release; and Cardiac electrophysiology procedure (N/A, 07/13/2023). 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 Other: Lives at home with [facility] Relevant Family History: Family History Problem Relation Name Age of Onset Cancer Mother Diabetes Father Hypertension Father Prostate cancer Brother Allergies: Allergies Allergen Reactions Penicillins Hives and Itching Medications: Current Outpatient Medications Medication Instructions abatacept (Orencia) 125 mg/mL injection subcutaneous acetaminophen (TYLENOL PO) 625 mg, oral, As needed atorvastatin (Lipitor) 10 mg tablet 1 tablet, oral, Daily ferrous gluconate 324 (38 Fe) mg tablet 1 tablet, oral, Daily fluticasone propion-salmeteroL (Advair Diskus) 250-50 mcg/dose diskus inhaler 1 puff, inhalation, 2times daily RT, As directed hydroCHLOROthiazide (HYDRODiuril) 25 mg tablet 1 tablet, oral, Daily hydroxychloroquine (Plaquenil) 200 mg tablet 1 tablet, oral, 2 times daily insulin glargine (LANTUS U-100 INSULIN) 12 Units, subcutaneous, As needed, Take as directed per insulin instructions. insulin lispro (HumaLOG) 100 unit/mL injection subcutaneous, Daily, Take as directed per insulin instructions. leflunomide (Arava) 20 mg tablet 1 tablet, oral, Daily losartan (COZAAR) 100 mg, oral, Daily melatonin 20 mg, oral, Nightly metFORMIN (GLUCOPHAGE) 500 mg, oral, Daily with breakfast omeprazole (PriLOSEC) [address] capsule 1 capsule, oral, Daily pantoprazole (PROTONIX) 40 mg, oral, 2 times daily, Do not crush, chew, or split. predniSONE (DELTASONE) 5 mg, oral, As needed warfarin (COUMADIN) 8 mg, oral, As directed by [facility] Coumadin clinic
Sun, Tue, Tue, Tue,Sat. Takes 6 mg on Tuesday and and 8 mg all other days of week. Objective Physical Exam: Last Recorded Vitals: 08/17/2022 11:30 AM 10/15/2022 11:18 AM 01/25/2023 3:48 PM 05/19/2023 1:39 PM 06/15/2023 1:11 PM 06/22/2023 9:40 AM 08/09/2023 11:05 AM Vitals Systolic 136 136 134 126 128 154 129 Diastolic 82 80 84 82 86 94 72 Heart Rate 82 84 93 86 89 89 83 Temp 36.2 C (97.2 F) 36.5 C (97.7 F) Resp 20 16 Height (in) 1.676 m (5' 6 ) 1.676 m (5' 6 ) 1.676 m (5' 6 ) 1.676 m (5' 6 ) 1.676 m (5' 6 ) 1.676 m(5' 6 ) 1.676 m (5' 6 ) Weight (lb) 221 208 228 237 226 230 223 BMI 35.67 kg/m2 33.57 kg/m2 36.8 kg/m2 38.25 kg/m2 36.48 kg/m2 37.12 kg/m2 35.99 kg/m2 BSA (m2) 2.16 m2 2.1 m2 2.19 m2 2.24 m2 2.19 m2 2.2 m2 2.17 m2 Visit Report Report Report Report Report Visit Vitals BP 129/72 Pulse 83 Temp 36.5 C (97.7 F) Resp 16 Ht 1.676 m (5' 6 ) Wt 101 kg (223 lb) SpO2 97% BMI 35.99 kg/m Smoking Status Former BSA 2.17 m Gen: NAD, sitting comfortably HEENT: NC/AT Card: Irregularly irregular, no m/r/g Pulm: Clear to auscultation bilaterally Ext: No LE edema Neuro: No focal deficits Diagnostic Results My Interpretation of Reviewed Study(s): Prior ECGs (reviewed and my interpretation): 08/09/2023: Sinus rhythm with premature atrial complexes, heart rate 72 bpm 06/22/2023: Atrial fibrillation with controlled ventricular response, frequent monomorphic PVCs, HR 89bpm Echocardiography: 10/09/2020 CONCLUSIONS: 1. The left ventricular systolic function is normal with a 60% estimated ejection fraction. 2. Spectral Doppler shows an impaired relaxation pattern of left ventricular diastolic filling. 3. RVSP within normal limits. 4. No significant changes noted when compared to prior study. Stress Test: 03/25/2022- Normal stress test Normal ejection fraction 57% Relevant Labs: No results found for: CREATININE , CCL , K , HGBA1C , HGB , INR , AST , ALT Assessment/Plan Assessment and Plan: In summary, patient is a pleasant 73 y.o.male with a history of recurrent symptomatic drug-refractory persistent atrial fibrillation and atrial flutter, has been maintained on propafenone and flecainide eventually failing them and unable to take dofetilide due to Qtc prolongation, who presents today for follow-up after recent catheter ablation with pulmonary vein isolation and CTI ablation on 07/13/2023. He is doing very well after ablation. He has not had any clinical recurrence of atrial fibrillation, and his EKG today shows normal sinus rhythm with PACs. Would recommend continuing his current medication regimen. Usually, I like to obtain a 7-day electronic device monitor 3 months after the ablation. As he lives in [place], [facility] I will send a message to his inspector [facility] to consider doing this at his next appointment. He also has a skin tag removal scheduled for next week, where he would have to hold his anticoagulation for 5 days. I have recommended against this. He is at particularly high risk of stroke within 3months after the ablation due to denudation of the endothelial barrier after ablation in the left atrium. He should not stop warfarin for at least 3 months after the ablation. He will reschedule the skin tag removal. Recommendations: - Patient is in normal sinus rhythm after ablation - Continue current medication regimen - Do not stop warfarin for at least 3 months after the ablation, after this, brief interruptions ofwarfarin can be considered. He will have to maintain long- term anticoagulation given his elevated CHADS2 vascular score - Patch monitor for 7 days at 3 months after ablation to assess for recurrent atrial fibrillation. He will try to arrange this through his local inspector firearms. - Continue to address underlying risk factors for atrial fibrillation including obesity, suspected sleep apnea, and hypertension - If he does have recurrent atrial fibrillation, could consider another trial of class Ic antiarrhythmics as they may be more effective after ablation. Touchup ablation could also be considered if needed. Return to Clinic: in 3 months Thank you very much for allowing me to participate in the care of this patient. Please do not hesitate to contact me with any further questions or concerns. Gunner Colorado MD Clinical Cardiac Straw Boss, [facility] Specialistmillinery designer, [employer] Director of Atrial Fibrillation Ablation, [facility] Consultant of Ventricular Arrhythmias Research, [facility] Office documented in this [facility] Work Phone: 1(286) 533-320205-22-2024 Hospital Discharge instructions* Discharge Instructions* Scottie Wu PA-C - 07/13/2023 10:20 AM EDT INSTRUCTIONS AFTER ABLATION PROCEDURE: * You will need to continue blood thinner (warfarin) until instructed otherwise. It is important not to interrupt blood thinner for any reason (other than an emergency) during the first 30 days afterablation. It is recommended that you have weekly INR for 4 weeks post ablation, then back to usual schedule at the discretion of managing provider/warfarin clinic. * You will be on Pantoprazole (a heartburn medicine) for 4 weeks to protect the esophagus as it canbecome irritated with ablation. It is very important that you take this medication. * All other medications will generally remain the same unless you are told otherwise. Resume takingyour home medications today (including blood thinner) as listed on the discharge instructions. * In the first week post-ablation you should take it easy. No heavy lifting or heavy exercise, no treadmill. You can use the stairs if needed but go slowly and minimize the number of times up and down. * Some minor bruising is common at each groin access site with minor soreness as if you had banged the area. Bruising may occasionally be seen to extend down the leg. This is normal as is an occasional small quarter sized bump in the area. If larger swelling or more significant pain occurs at the area, please contact the office or go the nearest Emergency Room. * You may have some minor chest pain for the next week or so. The pain will often worsen with a deep breath and be better when leaning forward. This is pericardial chest pain from the ablation and isgenerally not of concern. It should resolve within a week although it might increase for a day or so after the ablation. * If you develop unexplained fevers exceeding 100 degrees anytime within the first 3 weeks post-ablation, you need to contact the office. Low grade fevers of around 99 degrees are common in the firstday or so post-ablation. * Atrial fibrillation (AFib) can recur in all patients who undergo this ablation for up to 4-8 weeks post-ablation. The ablation itself can cause inflammation (pericarditis) in the atria and this cancause AFib. Some patients will actually experience an increased amount of atrial arrhythmia early after ablation. Approximately 1/3 of patients will have this early recurrence of AFib. Medications should be continued and your heart rate controlled. Nothing else needs be done initially except waiting as in many cases these episodes of AFib will prove self limited. * Continue to follow up with your primary care physician, primary inspector firearms, and any other specialists you normally see. * No driving for 2 days post procedure (IF you were driving prior to procedure) *Diet: Heart healthy Call Provider If: Breathing faster than normal. Fever of 100.4 F (38 C) or higher. Chills. Any new concerning symptoms. Passing out. Patient Instructions, Next 24 hours: DO NOT drive a car, operate machinery or power tools. It is recommended that a responsible adult bewith you for the first 24 hours. DO NOT drink any alcoholic drinks or take any non-prescriptive medications that contain alcohol forthe first 24 hours. DO NOT make any important decisions for the first 24 hours. Activity: You are advised to go directly home from the hospital. DO NOT lift anything heavier than 10 pounds for one week, this allows for proper healing of the groin. No excessive exercise or treadmill use for one week. You may walk and do stairs, slowly. No sexual activities for 24 hours after you arrive home. Wound Care: If slight bleeding should occur at groin site, lie down and have someone apply firm pressure just above the puncture site for 5 minutes. If it continues or is profuse, call 911. Always notify your doctor if bleeding occurs. Keep site clean and dry. Let air dry or you may use a simple bandaid. Gently cleanse the puncture site in your groin with soap and water only. You may experience some tenderness, bruising or minimal inflammation. If you have any concerns, youmay contact the EP Lab or if any of these symptoms become excessive, contact your knife blade polisher or go to the emergency room. No tub baths, soaking, hot tubs, or swimming for one week. May shower the next day after your procedure. Other Instructions: If you have any questions about the effects of the sedative drugs or groin care, call the physicianwho performed your procedure. FOLLOW UP: 1) Primary care physician 2 weeks--call to schedule 2) Dr Gunner Colorado ( Electrophysiology) 1 month after ablation as scheduled [facility] Work Phone: 1([phone]) 170-284105-22-2024 Note* Post-Procedure Note - Gunner Colorado MD - 07/13/2023 8:30 AM EDT Physician Transition of Care Summary Invasive Cardiovascular Lab Procedure Date: 07/13/2023 Attending: * Gunner Colorado - Primary Resident/Fellow/Other Office Equipment Mechanic: Surgeons and Role: * Roberto Dickens MD - Fellow Indications: Pre-op Diagnosis * Persistent atrial fibrillation (Multi) [I48.19] Post-procedure diagnosis: Post-op Diagnosis * Persistent atrial fibrillation (Multi) [I48.19] Procedure(s): Ablation A-Fib 46934 - MS COMPRE EP EVAL ABLTJ ATR FIB PULM VEIN ISOLATION Procedure Findings: Atrial fibrillation Typical atrial flutter Description of the Procedure: Bilateral pulmonary vein isolation with first pass isolation Cavotricuspid isthmus ablation Complications: None Stents/Implants: Implants No implant documentation for this case. Anticoagulation/Antiplatelet Plan: Continue warfarin Estimated Blood Loss: 5 mL Anesthesia: General Anesthesia Staff: Anesthesiologist: Jem Goodrich MD C-AA: ARBEN Hickman Any Specimen(s) Removed: No specimens collected during this procedure. Disposition: Holding area discharge home later today Electronically signed by: Gunner Colorado MD, 07/13/2023 11:54 AM [facility] Work Phone: [phone]) 524-293505-22-2024 Miscellaneous Notes* Post-Procedure Note - Gunner Colorado MD - 07/13/2023 8:30 AM EDT Physician Transition of Care Summary Invasive Cardiovascular Lab Procedure Date: 07/13/2023 Attending: * Gunner Colorado - Primary Resident/Fellow/Other Office Equipment Mechanic: Surgeons and Role: * Roberto Dickens MD - Fellow Indications: Pre-op Diagnosis * Persistent atrial fibrillation (Multi) [I48.19] Post-procedure diagnosis: Post-op Diagnosis * Persistent atrial fibrillation (Multi) [I48.19] Procedure(s): Ablation A-Fib 04817 - MS COMPRE EP EVAL ABLTJ ATR FIB PULM VEIN ISOLATION Procedure Findings: Atrial fibrillation Typical atrial flutter Description of the Procedure: Bilateral pulmonary vein isolation with first pass isolation Cavotricuspid isthmus ablation Complications: None Stents/Implants: Implants No implant documentation for this case. Anticoagulation/Antiplatelet Plan: Continue warfarin Estimated Blood Loss: 5 mL Anesthesia: General Anesthesia Staff: Anesthesiologist: Jem Goodrich MD C-AA: ARBEN Hickman Any Specimen(s) Removed: No specimens collected during this procedure. Disposition: Holding area discharge home later today Electronically signed by: Gunner Colorado MD, 07/13/2023 11:54 AM * Hospital Course - Scottie Wu PA-C - 07/12/2023 3:04 PM EDT documented in this [facility] Work Phone: [phone] 443-253205-22-2024 History of Present illness Narrative* Gatito Sinha, [facility] - 07/13/2023 8:16 AM EDT Pharmacy Medication History Review Nereyda Barker is a 73 y.o. male admitted for Persistent atrial fibrillation (Multi). Pharmacy reviewed the patient's [id number] medications and allergies for accuracy. Medications REMOVED: Albuterol The list below reflects the updated CHALK TESTER list. Comments regarding how patient may be taking medications differently can be found in the Admit Orders Activity Prior to Admission Medications Prescriptions Last Dose Informant Patient Reported? abatacept (Orencia) 125 mg/mL injection Past Month Self Yes Sig: Inject under the skin. acetaminophen (TYLENOL PO) 07/12/2023 Self Yes Sig: Take 625 mg by mouth if needed. atorvastatin (Lipitor) 10 mg tablet 07/12/2023 Self Yes Sig: Take 1 tablet (10 mg) by mouth once daily. ferrous gluconate 324 (38 Fe) mg tablet 07/12/2023 Self Yes Sig: Take 1 tablet (324 mg) by mouth once daily. fluticasone propion-salmeteroL (Advair Diskus) 250-50 mcg/dose diskus inhaler 07/12/2023 Self Yes Sig: Inhale 1 puff 2 times a day. As directed hydroCHLOROthiazide (HYDRODiuril) 25 mg tablet 07/12/2023 Self Yes Sig: Take 1 tablet (25 mg) by mouth once daily. hydroxychloroquine (Plaquenil) 200 mg tablet 07/12/2023 Self Yes Sig: Take 1 tablet (200 mg) by mouth 2 times a day. insulin glargine (Lantus U-100 Insulin) 100 unit/mL injection 07/12/2023 Self Yes Sig: Inject 12 Units under the skin if needed. Take as directed per insulin instructions. insulin lispro (HumaLOG) 100 unit/mL injection 07/12/2023 Self Yes Sig: Inject under the skin once daily. Take as directed per insulin instructions. leflunomide (Arava) 20 mg tablet 07/12/2023 Self Yes Sig: Take 1 tablet (20 mg) by mouth once daily. losartan (Cozaar) 100 mg tablet 07/12/2023 Self Yes Sig: Take 1 tablet (100 mg) by mouth once daily. melatonin 10 mg tablet 07/12/2023 Self Yes Sig: Take 2 tablets (20 mg) by mouth once daily at bedtime. metFORMIN (Glucophage) 500 mg tablet 07/12/2023 Self Yes Sig: Take 1 tablet (500 mg) by mouth once daily with breakfast. omeprazole (PriLOSEC) [address] capsule 07/12/2023 Self Yes Sig: Take 1 capsule (40 mg) by mouth once daily. predniSONE (Deltasone) 5 mg tablet Past Week Self Yes Sig: Take 1 tablet (5 mg) by mouth if needed. warfarin (Coumadin) 4 mg tablet 07/12/2023 Self Yes Sig: Take 2 tablets (8 mg) by mouth. As directed by [facility] Coumadin clinic Sun, e, Tue, Tue,Sat. Takes 6 mg on Tuesday and and 8 mg all other days of week. Facility-Administered Medications: None The list below reflects the updated allergy list. Please review each documented allergy for additional clarification and justification. Allergies Reviewed by Gaye Valdez RN on 07/13/2023 Severity Reactions Comments Penicillins Medium Hives, Itching Patient declines M2B at discharge. Sources used to complete the med history include out patient fill history, OARRS, and patient interview along with office visit [facility] 06/08/23 and cardiology visit 06/22/23 Below are additional concerns with the patient's CHALK TESTER list. The patient uses [facility] so some of his medications on list shows no fill history but on (warfarin , advair , humalog ) Gatito Sinha [facility] Transitions of Care Clinical Pharmacist Please reach out via [employer] Chat for questions, if no response call [employer] or [facility] documented in this [facility] Work Phone: [phone]) [phone] Attending History and physical note* Roberto Dickens MD - 07/13/2023 8:09 AM EDT H&P reviewed. The patient was examined and there are no changes to the H&P. Source Note - Gunner Colorado MD - 06/22/2023 9:40 AM EDT Images from the original note were not included. Referring Provider: Jose Angel Palmer MD Reason for Consult: Persistent atrial fibrillation History of Present Illness: Nereyda Barker is a 73 y.o. year old male patient with a history significant for persistent atrial fibrillation and atrial flutter, hypertension, diabetes, and rheumatoid arthritis on predniosne who is referred by Dr. Palmer for consideration of AF ablation. He was originally diagnosed with atrial fibrillation many years ago. Symptoms include fatigue and lack of energy. He was previously on propafenone and rhythmol and unfortunately broke through on these medications. He was recently admitted to [facility] for dofetilide loading, but developed a prolonged Qtc and was unable to continue on the medication. This was due to interaction with his RA meds, particularly HCQ, which he is unable to discontinue. Thus, he was referred for considerationof ablation. He denies lightheadedness, dizziness, or syncope. He does report frequent snoring and nighttime awakenings gasping for air; his corroborates this. He is interested in ablation. Focused Cardiovascular Problem List: Persistent atrial fibrillation/flutter: [id number] = 3. On coumadin, INR goal 2- 3. Failed flecainide and propafenone previously, and unable to take dofetilide due to Qtc prolongation. Obesity Hypertension Diabetes Mellitus Rheumatoid arthritis: On chronic prednisone and hydroxychloroquine as well as abatacept injections Suspected Sleep Apnea Past Medical and Surgical History: Mr. Barker has no past medical history on file. has a past surgical history that includes Other surgical history (01/16/2021); Other surgical history (01/16/2021); and Carpal tunnel release. 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: Lives at home with [facility] Relevant Family History: Family History Problem Relation Name Age of Onset Cancer Mother Diabetes Father Hypertension Father Prostate cancer Brother Allergies: Allergies Allergen Reactions Penicillins Hives and Itching Medications: Current Outpatient Medications Medication Instructions abatacept (Orencia) 125 mg/mL injection subcutaneous acetaminophen (TYLENOL PO) 625 mg, oral, As needed albuterol 90 mcg/actuation inhaler 2 puffs, inhalation, As needed atorvastatin (Lipitor) 10 mg tablet 1 tablet, oral, Daily ferrous gluconate 324 (38 Fe) mg tablet 1 tablet, oral, Daily fluticasone propion-salmeteroL (Advair Diskus) 250-50 mcg/dose diskus inhaler 1 puff, inhalation, 2times daily RT, As directed hydroCHLOROthiazide (HYDRODiuril) 25 mg tablet 1 tablet, oral, Daily hydroxychloroquine (Plaquenil) 200 mg tablet 1 tablet, oral, 2 times daily insulin glargine (LANTUS U-100 INSULIN) 12 Units, subcutaneous, As needed, Take as directed per insulin instructions. insulin lispro (HumaLOG) 100 unit/mL injection subcutaneous, Daily, Take as directed per insulin instructions. leflunomide (Arava) 20 mg tablet 1 tablet, oral, Daily losartan (Cozaar) 100 mg tablet 1 tablet, oral, Daily melatonin 20 mg, oral, Nightly metFORMIN (GLUCOPHAGE) 500 mg, oral, Daily with breakfast omeprazole (PriLOSEC) [address] capsule 1 capsule, oral, Daily predniSONE (DELTASONE) 5 mg, oral, As needed warfarin (COUMADIN) 8 mg, oral, As directed by [facility] Coumadin clinicSun, Tue, Wed, Tue,Sat. Objective Physical Exam: Last Recorded Vitals: 05/25/2022 11:20 AM 08/02/2022 3:05 PM 08/17/2022 11:30 AM 10/15/2022 11:18 AM 01/25/2023 3:48 PM 05/19/2023 1:39 PM 06/15/2023 1:11 PM Vitals Systolic 130 122 136 136 134 126 128 Diastolic 82 68 82 80 84 82 86 Heart Rate 86 83 82 84 93 86 89 Height (in) 1.676 m (5' 6 ) 1.676 m (5' 6 ) 1.676 m (5' 6 ) 1.676 m (5' 6 ) 1.676 m (5' 6 ) 1.676 m(5' 6 ) 1.676 m (5' 6 ) Weight (lb) 236 224 221 208 228 237 226 BMI 38.09 kg/m2 36.15 kg/m2 35.67 kg/m2 33.57 kg/m2 36.8 kg/m2 38.25 kg/m2 36.48 kg/m2 BSA (m2) 2.23 m2 2.18 m2 2.16 m2 2.1 m2 2.19 m2 2.24 m2 2.19 m2 Visit Report Report Report Visit Vitals Smoking Status Former Gen: NAD, sitting comfortably HEENT: NC/AT Card: Irregularly irregular, no m/r/g Pulm: Clear to auscultation bilaterally Ext: No LE edema Neuro: No focal deficits Diagnostic Results My Interpretation of Reviewed Study(s): Prior ECGs (reviewed and my interpretation): 06/22/2023: Atrial fibrillation with controlled ventricular response, frequent monomorphic PVCs, HR 89bpm Echocardiography: 10/09/2020 CONCLUSIONS: 1. The left ventricular systolic function is normal with a 60% estimated ejection fraction. 2. Spectral Doppler shows an impaired relaxation pattern of left ventricular diastolic filling. 3. RVSP within normal limits. 4. No significant changes noted when compared to prior study. Stress Test: 03/25/2022- Normal stress test Normal ejection fraction 57% Relevant Labs: No results found for: CREATININE , CCL , K , HGBA1C , HGB , INR , AST , ALT Assessment/Plan Assessment and Plan: In summary, patient is a pleasant 73 y.o.male with a history of recurrent symptomatic drug-refractory persistent atrial fibrillation and atrial flutter, has been maintained on propafenone and flecainide eventually failing them and unable to take dofetilide due to Qtc prolongation, who presents today for initial consultation. Symptoms include fatigue and lack of energy. Treatment options of atrialfibrillation were discussed with the patient and all questions were answered. These options included: 1. Rate control drug therapy with AVN blockers to slow down the heart rate, 2. Rhythm control with anti-arrhythmic drugs and with cardioversion to restore normal sinus rhythm, and/or 3. Radiofrequency (RF) ablation. In particular, RF ablation of atrial fibrillation was discussed in detail. We discussed the potential benefits of AF ablation including freedom from AF without any medical therapy or, in some cases, a significant improvement in AF burden on medical therapy. We also discussed that AF ablation has been shown to be the most effective way to maintain a normal rhythm. We also discussed that ablation procedure is not indicated for the purpose of discontinuing oral anticoagulation, and the success rate for catheter ablation for AF, meaning no recurrence of any atrial fibrillation, is currently approximately 60-70% for persistent atrial fibrillation. Success rate is >90%for typical atrial flutter. A minority of patients may require an additional touch-up procedure. However, it is highly successful at reducing overall A-fib burden as well as symptomatic recurrences. The risks of the procedure were also extensively discussed, including but not limited to infection, blood vessel damage, heart injury or perforation necessitating emergency cardiac surgery, heart attack or stroke, atrial-esophageal fistula, pulmonary vein stenosis, phrenic nerve injury, even . Finally, the risk of stroke associated with atrial fibrillation was discussed - as the patient has a [id number] score of 3, the patient will be maintained on coumadin for CVA prevention. After extensive discussion, Mr. Barker wishes to proceed with ablation. He will maintain his INR between 2-3 for the procedure. He will get an INR the day before the procedure. He also has frequent snoring and nighttime awakenings, suspicious for sleep apnea. I have recommended formal sleep testing. He will try to obtain this locally through his PCP. Name: Nereyda Barker Attending: Gunner Colorado MD Procedure: AF ablation Date desired: 07/13/2023 Diagnosis: Persistent atrial fibrillation and atrial flutter Vendor if applicable: [employer] Expected anesthesia: General Isolation/precautions?: No Other comments/med instructions: Hold all meds the AM of the procedure. Return to Clinic: after ablation Thank you very much for allowing me to participate in the care of this patient. Please do not hesitate to contact me with any further questions or concerns. Gunner Colorado MD Clinical Cardiac Straw Boss, [facility] Specialistmillinery designer, [facility] [employer] Director of Atrial Fibrillation Ablation, [facility] Consultant of Ventricular Arrhythmias Research, [facility] Office [facility] Work Phone: [phone]) [phone] History and physical note* Roberto Dickens MD - 07/13/2023 8:09 AM EDT H&P reviewed. The patient was examined and there are no changes to the H&P. Source Note - Gunner Colorado MD - 06/22/2023 9:40 AM EDT Images from the original note were not included. Referring Provider: Jose Angel Palmer MD Reason for Consult: Persistent atrial fibrillation History of Present Illness: Nereyda Barker is a 73 y.o. year old male patient with a history significant for persistent atrial fibrillation and atrial flutter, hypertension, diabetes, and rheumatoid arthritis on predniosne who is referred by Dr. Palmer for consideration of AF ablation. He was originally diagnosed with atrial fibrillation many years ago. Symptoms include fatigue and lack of energy. He was previously on propafenone and rhythmol and unfortunately broke through on these medications. He was recently admitted to [facility] for dofetilide loading, but developed a prolonged Qtc and was unable to continue on the medication. This was due to interaction with his RA meds, particularly HCQ, which he is unable to discontinue. Thus, he was referred for considerationof ablation. He denies lightheadedness, dizziness, or syncope. He does report frequent snoring and nighttime awakenings gasping for air; his corroborates this. He is interested in ablation. Focused Cardiovascular Problem List: Persistent atrial fibrillation/flutter: [id number] = 3. On coumadin, INR goal 2- 3. Failed flecainide and propafenone previously, and unable to take dofetilide due to Qtc prolongation. Obesity Hypertension Diabetes Mellitus Rheumatoid arthritis: On chronic prednisone and hydroxychloroquine as well as abatacept injections Suspected Sleep Apnea Past Medical and Surgical History: Mr. Barker has no past medical history on file. has a past surgical history that includes Other surgical history (01/16/2021); Other surgical history (01/16/2021); and Carpal tunnel release. 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: Lives at home with [facility] Relevant Family History: Family History Problem Relation Name Age of Onset Cancer Mother Diabetes Father Hypertension Father Prostate cancer Brother Allergies: Allergies Allergen Reactions Penicillins Hives and Itching Medications: Current Outpatient Medications Medication Instructions abatacept (Orencia) 125 mg/mL injection subcutaneous acetaminophen (TYLENOL PO) 625 mg, oral, As needed albuterol 90 mcg/actuation inhaler 2 puffs, inhalation, As needed atorvastatin (Lipitor) 10 mg tablet 1 tablet, oral, Daily ferrous gluconate 324 (38 Fe) mg tablet 1 tablet, oral, Daily fluticasone propion-salmeteroL (Advair Diskus) 250-50 mcg/dose diskus inhaler 1 puff, inhalation, 2times daily RT, As directed hydroCHLOROthiazide (HYDRODiuril) 25 mg tablet 1 tablet, oral, Daily hydroxychloroquine (Plaquenil) 200 mg tablet 1 tablet, oral, 2 times daily insulin glargine (LANTUS U-100 INSULIN) 12 Units, subcutaneous, As needed, Take as directed per insulin instructions. insulin lispro (HumaLOG) 100 unit/mL injection subcutaneous, Daily, Take as directed per insulin instructions. leflunomide (Arava) 20 mg tablet 1 tablet, oral, Daily losartan (Cozaar) 100 mg tablet 1 tablet, oral, Daily melatonin 20 mg, oral, Nightly metFORMIN (GLUCOPHAGE) 500 mg, oral, Daily with breakfast omeprazole (PriLOSEC) [address] capsule 1 capsule, oral, Daily predniSONE (DELTASONE) 5 mg, oral, As needed warfarin (COUMADIN) 8 mg, oral, As directed by [facility] Coumadin clinic
Sun, Tue, Wed, Fri,Sat. Objective Physical Exam: Last Recorded Vitals: 05/25/2022 11:20 AM 08/02/2022 3:05 PM 08/17/2022 11:30 AM 10/15/2022 11:18 AM 01/25/2023 3:48 PM 05/19/2023 1:39 PM 06/15/2023 1:11 PM Vitals Systolic 130 122 136 136 134 126 128 Diastolic 82 68 82 80 84 82 86 Heart Rate 86 83 82 84 93 86 89 Height (in) 1.676 m (5' 6 ) 1.676 m (5' 6 ) 1.676 m (5' 6 ) 1.676 m (5' 6 ) 1.676 m (5' 6 ) 1.676 m(5' 6 ) 1.676 m (5' 6 ) Weight (lb) 236 224 221 208 228 237 226 BMI 38.09 kg/m2 36.15 kg/m2 35.67 kg/m2 33.57 kg/m2 36.8 kg/m2 38.25 kg/m2 36.48 kg/m2 BSA (m2) 2.23 m2 2.18 m2 2.16 m2 2.1 m2 2.19 m2 2.24 m2 2.19 m2 Visit Report Report Report Visit Vitals Smoking Status Former Gen: NAD, sitting comfortably HEENT: NC/AT Card: Irregularly irregular, no m/r/g Pulm: Clear to auscultation bilaterally Ext: No LE edema Neuro: No focal deficits Diagnostic Results My Interpretation of Reviewed Study(s): Prior ECGs (reviewed and my interpretation): 06/22/2023: Atrial fibrillation with controlled ventricular response, frequent monomorphic PVCs, HR 89bpm Echocardiography: 10/09/2020 CONCLUSIONS: 1. The left ventricular systolic function is normal with a 60% estimated ejection fraction. 2. Spectral Doppler shows an impaired relaxation pattern of left ventricular diastolic filling. 3. RVSP within normal limits. 4. No significant changes noted when compared to prior study. Stress Test: 03/25/2022- Normal stress test Normal ejection fraction 57% Relevant Labs: No results found for: CREATININE , CCL , K , HGBA1C , HGB , INR , AST , ALT Assessment/Plan Assessment and Plan: In summary, patient is a pleasant 73 y.o.male with a history of recurrent symptomatic drug-refractory persistent atrial fibrillation and atrial flutter, has been maintained on propafenone and flecainide eventually failing them and unable to take dofetilide due to Qtc prolongation, who presents today for initial consultation. Symptoms include fatigue and lack of energy. Treatment options of atrialfibrillation were discussed with the patient and all questions were answered. These options included: 1. Rate control drug therapy with AVN blockers to slow down the heart rate, 2. Rhythm control with anti-arrhythmic drugs and with cardioversion to restore normal sinus rhythm, and/or 3. Radiofrequency (RF) ablation. In particular, RF ablation of atrial fibrillation was discussed in detail. We discussed the potential benefits of AF ablation including freedom from AF without any medical therapy or, in some cases, a significant improvement in AF burden on medical therapy. We also discussed that AF ablation has been shown to be the most effective way to maintain a normal rhythm. We also discussed that ablation procedure is not indicated for the purpose of discontinuing oral anticoagulation, and the success rate for catheter ablation for AF, meaning no recurrence of any atrial fibrillation, is currently approximately 60-70% for persistent atrial fibrillation. Success rate is >90%for typical atrial flutter. A minority of patients may require an additional touch-up procedure. However, it is highly successful at reducing overall A-fib burden as well as symptomatic recurrences. The risks of the procedure were also extensively discussed, including but not limited to infection, blood vessel damage, heart injury or perforation necessitating emergency cardiac surgery, heart attack or stroke, atrial-esophageal fistula, pulmonary vein stenosis, phrenic nerve injury, even . Finally, the risk of stroke associated with atrial fibrillation was discussed - as the patient has a [id number] score of 3, the patient will be maintained on coumadin for CVA prevention. After extensive discussion, Mr. Barker wishes to proceed with ablation. He will maintain his INR between 2-3 for the procedure. He will get an INR the day before the procedure. He also has frequent snoring and nighttime awakenings, suspicious for sleep apnea. I have recommended formal sleep testing. He will try to obtain this locally through his PCP. Name: Nereyda Barker Attending: Gunner Colorado MD Procedure: AF ablation Date desired: 07/13/2023 Diagnosis: Persistent atrial fibrillation and atrial flutter Vendor if applicable: [employer] Expected anesthesia: General Isolation/precautions?: No Other comments/med instructions: Hold all meds the AM of the procedure. Return to Clinic: after ablation Thank you very much for allowing me to participate in the care of this patient. Please do not hesitate to contact me with any further questions or concerns. Gunner [place] MD Clinical Cardiac Straw Boss, [facility] [place] [facility] Specialistmillinery designer, [facility] [employer] Director of Atrial Fibrillation Ablation, [facility] Consultant of Ventricular Arrhythmias Research, [facility] Office documented in this [facility] Work Phone: 1(502) 968-318705-21-2024 Hospital Note* Hospital Course - Scottie Wu PA-C - 07/12/2023 3:04 PM EDT [facility] Work Phone: 1(393) 609-195605-01-2024 History of Present illness Narrative* Gunner [place] MD - 06/22/2023 9:40 AM EDT Images from the original note were not included. Referring Provider: Jose Angel Palmer MD Reason for Consult: Persistent atrial fibrillation History of Present Illness: Nereyda Barker is a 73 y.o. year old male patient with a history significant for persistent atrial fibrillation and atrial flutter, hypertension, diabetes, and rheumatoid arthritis on predniosne who is referred by Dr. Palmer for consideration of AF ablation. He was originally diagnosed with atrial fibrillation many years ago. Symptoms include fatigue and lack of energy. He was previously on propafenone and rhythmol and unfortunately broke through on these medications. He was recently admitted to [facility] for dofetilide loading, but developed a prolonged Qtc and was unable to continue on the medication. This was due to interaction with his RA meds, particularly HCQ, which he is unable to discontinue. Thus, he was referred for considerationof ablation. He denies lightheadedness, dizziness, or syncope. He does report frequent snoring and nighttime awakenings gasping for air; his corroborates this. He is interested in ablation. Focused Cardiovascular Problem List: Persistent atrial fibrillation/flutter: [id number] = 3. On coumadin, INR goal 2- 3. Failed flecainide and propafenone previously, and unable to take dofetilide due to Qtc prolongation. Obesity Hypertension Diabetes Mellitus Rheumatoid arthritis: On chronic prednisone and hydroxychloroquine as well as abatacept injections Suspected Sleep Apnea Past Medical and Surgical History: Mr. Barker has no past medical history on file. has a past surgical history that includes Other surgical history (01/16/2021); Other surgical history (01/16/2021); and Carpal tunnel release. 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: Lives at home with marychuy Relevant Family History: Family History Problem Relation Name Age of Onset Cancer Mother Diabetes Father Hypertension Father Prostate cancer Brother Allergies: Allergies Allergen Reactions Penicillins Hives and Itching Medications: Current Outpatient Medications Medication Instructions abatacept (Orencia) 125 mg/mL injection subcutaneous acetaminophen (TYLENOL PO) 625 mg, oral, As needed albuterol 90 mcg/actuation inhaler 2 puffs, inhalation, As needed atorvastatin (Lipitor) 10 mg tablet 1 tablet, oral, Daily ferrous gluconate 324 (38 Fe) mg tablet 1 tablet, oral, Daily fluticasone propion-salmeteroL (Advair Diskus) 250-50 mcg/dose diskus inhaler 1 puff, inhalation, 2times daily RT, As directed hydroCHLOROthiazide (HYDRODiuril) 25 mg tablet 1 tablet, oral, Daily hydroxychloroquine (Plaquenil) 200 mg tablet 1 tablet, oral, 2 times daily insulin glargine (LANTUS U-100 INSULIN) 12 Units, subcutaneous, As needed, Take as directed per insulin instructions. insulin lispro (HumaLOG) 100 unit/mL injection subcutaneous, Daily, Take as directed per insulin instructions. leflunomide (Arava) 20 mg tablet 1 tablet, oral, Daily losartan (Cozaar) 100 mg tablet 1 tablet, oral, Daily melatonin 20 mg, oral, Nightly metFORMIN (GLUCOPHAGE) 500 mg, oral, Daily with breakfast omeprazole (PriLOSEC) [address] capsule 1 capsule, oral, Daily predniSONE (DELTASONE) 5 mg, oral, As needed warfarin (COUMADIN) 8 mg, oral, As directed by [facility] Coumadin clinic
Sun, e, Tue, Tue,Sat. Objective Physical Exam: Last Recorded Vitals: 05/25/2022 11:20 AM 08/02/2022 3:05 PM 08/17/2022 11:30 AM 10/15/2022 11:18 AM 01/25/2023 3:48 PM 05/19/2023 1:39 PM 06/15/2023 1:11 PM Vitals Systolic 130 122 136 136 134 126 128 Diastolic 82 68 82 80 84 82 86 Heart Rate 86 83 82 84 93 86 89 Height (in) 1.676 m (5' 6 ) 1.676 m (5' 6 ) 1.676 m (5' 6 ) 1.676 m (5' 6 ) 1.676 m (5' 6 ) 1.676 m(5' 6 ) 1.676 m (5' 6 ) Weight (lb) 236 224 221 208 228 237 226 BMI 38.09 kg/m2 36.15 kg/m2 35.67 kg/m2 33.57 kg/m2 36.8 kg/m2 38.25 kg/m2 36.48 kg/m2 BSA (m2) 2.23 m2 2.18 m2 2.16 m2 2.1 m2 2.19 m2 2.24 m2 2.19 m2 Visit Report Report Report Visit Vitals Smoking Status Former Gen: NAD, sitting comfortably HEENT: NC/AT Card: Irregularly irregular, no m/r/g Pulm: Clear to auscultation bilaterally Ext: No LE edema Neuro: No focal deficits Diagnostic Results My Interpretation of Reviewed Study(s): Prior ECGs (reviewed and my interpretation): 06/22/2023: Atrial fibrillation with controlled ventricular response, frequent monomorphic PVCs, HR 89bpm Echocardiography: 10/09/2020 CONCLUSIONS: 1. The left ventricular systolic function is normal with a 60% estimated ejection fraction. 2. Spectral Doppler shows an impaired relaxation pattern of left ventricular diastolic filling. 3. RVSP within normal limits. 4. No significant changes noted when compared to prior study. Stress Test: 03/25/2022- Normal stress test Normal ejection fraction 57% Relevant Labs: No results found for: CREATININE , CCL , K , HGBA1C , HGB , INR , AST , ALT Assessment/Plan Assessment and Plan: In summary, patient is a pleasant 73 y.o.male with a history of recurrent symptomatic drug-refractory persistent atrial fibrillation and atrial flutter, has been maintained on propafenone and flecainide eventually failing them and unable to take dofetilide due to Qtc prolongation, who presents today for initial consultation. Symptoms include fatigue and lack of energy. Treatment options of atrialfibrillation were discussed with the patient and all questions were answered. These options included: 1. Rate control drug therapy with AVN blockers to slow down the heart rate, 2. Rhythm control with anti-arrhythmic drugs and with cardioversion to restore normal sinus rhythm, and/or 3. Radiofrequency (RF) ablation. In particular, RF ablation of atrial fibrillation was discussed in detail. We discussed the potential benefits of AF ablation including freedom from AF without any medical therapy or, in some cases, a significant improvement in AF burden on medical therapy. We also discussed that AF ablation has been shown to be the most effective way to maintain a normal rhythm. We also discussed that ablation procedure is not indicated for the purpose of discontinuing oral anticoagulation, and the success rate for catheter ablation for AF, meaning no recurrence of any atrial fibrillation, is currently approximately 60-70% for persistent atrial fibrillation. Success rate is >90%for typical atrial flutter. A minority of patients may require an additional touch-up procedure. However, it is highly successful at reducing overall A-fib burden as well as symptomatic recurrences. The risks of the procedure were also extensively discussed, including but not limited to infection, blood vessel damage, heart injury or perforation necessitating emergency cardiac surgery, heart attack or stroke, atrial-esophageal fistula, pulmonary vein stenosis, phrenic nerve injury, even . Finally, the risk of stroke associated with atrial fibrillation was discussed - as the patient has a [id number] score of 3, the patient will be maintained on coumadin for CVA prevention. After extensive discussion, Mr. Barker wishes to proceed with ablation. He will maintain his INR between 2-3 for the procedure. He will get an INR the day before the procedure. He also has frequent snoring and nighttime awakenings, suspicious for sleep apnea. I have recommended formal sleep testing. He will try to obtain this locally through his PCP. Name: Nereyda Barker Attending: Gunner [place] MD Procedure: AF ablation Date desired: 07/13/2023 Diagnosis: Persistent atrial fibrillation and atrial flutter Vendor if applicable: [employer] Expected anesthesia: General Isolation/precautions?: No Other comments/med instructions: Hold all meds the AM of the procedure. Return to Clinic: after ablation Thank you very much for allowing me to participate in the care of this patient. Please do not hesitate to contact me with any further questions or concerns. Gunner [place] MD Clinical Cardiac Straw Boss, [facility] [place] [facility] Specialistmillinery designer, [facility] [employer] Director of Atrial Fibrillation Ablation, [employer] Consultant of Ventricular Arrhythmias Research, [facility] Office [facility] Work Phone: [phone]) 511-100404-24-2024 History of Present illness Narrative* Loreto Belle CMA - 06/15/2023 1:00 PM EDT Patient here for at EKG visit ordered by Dr. Palmer due to A-Fib. Dr. Palmer in suite. Patient here due to drug load, DCC . Medication list Updated verbally. Patient complains of being run down, exhausted, shortness of breath, headaches and numbness and pain that radiates down both arms. Hestates his spigit mobile shows him being out of rhythm. The medication he started was discontinued at discharge and he did not have the cardioversion. Patient has no other cardiac complaints at time of visit.. Discussed with Jj Perez RN prior to discharge. To Dr. Palmer for review Vitals: 06/15/23 1311 BP: 128/86 BP Location: Right arm Patient Position: Sitting Pulse: 89 Weight: 103 kg (226 lb) Height: 1.676 m (5' 6 ) EKG done in office today documented in this [facility] Work Phone: 1(352) 687-985304-12-2024 Progress note Author Jose Angel Palmer [facility] June 03, 2023 2:41pmNote Date/TimeApril 2023 2:41pm[place] [address] Cardiology Progress Note Signed Patient: Nereyda Barker MR#: [id number] : 1950 Acct:[id number] Age/Sex: 73 / M Adm Date: 4 Loc: Room: [address] [place] [address] Type: ADM IN Attending Dr: Jose Angel Palmer MD Copies to: ~ Date of Service: 06/03/2023 Subjective Interval history: Patient is doing well. No complaints.He converted spontaneously to normal sinusrhythm but QTc and overall is prolonged to 499 ms Exam Physical Exam Vital Signs: Temp Pulse Resp BP Pulse Ox O2 Del Method 97.5 F L 75 18 134/87 97 Room Air 06/03/23 11:50 06/03/23 11:50 06/03/23 11:50 06/03/23 11:50 06/03/23 11:50 06/03/23 11:50 Eyes General: appearance normal, both eyes and all related structures Pupils: PERRL Neck Neck: normal visual inspection, supple and no lymphadenopathy noted Neck mass: No Thyroid: thyroid normal Carotids: normal carotid upstroke Chest Chest palpation & inspection: normal inspection of the chest Resp Effort & Inspection: normal respiratory effort Auscultation: clear to auscultation bilaterally Cardio Palpation: normal PMI Rhythm: abnormal rhythm irregularly irregular Heart Sounds: S1 normal and S2 normal GI Palpation: soft and no hepatosplenomegaly Percussion: normal to percussion Auscultation: normal bowel sounds Skin General: no rashes or lesions noted and dry skin Neuro General: patient alert, patient awake, patient oriented x3, tone normal and moves all extremities Objective Labs 06/03/23 04:19 Labs: Laboratory Results - last 24 hr 06/02/23 06/02/23 06/03/23 16:24 21:05 04:19 PT 29.1 H INR 2.6 Sodium 140 Potassium 3.9 Chloride 107 Carbon Dioxide 24.7 Anion Gap 12.2 POC Glucose 108 176 POC Glucose Comment Glu2: cleaned meter 06/03/23 06/03/23 07:45 11:49 PT INR Sodium Potassium Chloride Carbon Dioxide Anion Gap POC Glucose 112 161 POC Glucose Comment Glu2: cleaned meter A&P - Cardiology (1) Atrial fibrillation, persistent: Code(s): I48.19 - Other persistent atrial fibrillation (2) Rheumatoid arthritis: Code(s): M06.9 - Rheumatoid arthritis, unspecified (3) Diabetes: Code(s): E11.9 - Type 2 diabetes mellitus without complications Plan 1. The patient converted to normal sinus rhythm but unfortunately he developed a QT C prolongation.Will give 2 g of magnesium and repeat EKG. Discontinue dofetilide. 2. I reviewed treatment option with the patient at great length. Considering he is on hydroxychloroquine it appears that he would not be a good candidate forantiarrhythmic and the best option will medel ablation. 3. Patient remained stable will be discharged later on today Documented By: Jose Angel Palmer MD 06/03/238 Signed By: <Electronically signed by MD Jose Angel Palmer> 06/03/23 1441 [facility] Work Phone: 1(203) 243-537404-11-2024 Progress note Author Jose Angel Palmer [facility] June 02, 2023 11:18amNote Date/TimeApril 2023 11:18[place] [address] Cardiology Progress Note Signed Patient: Nereyda Barker MR#: [id number] : 1950 Acct:[id number] Age/Sex: 73 / M Adm Date: 4 Loc: Room: [address] [place] [address] Type: ADM IN Attending Dr: Jose Angel Palmer MD Copies to: ~ Date of Service: 06/02/2023 Subjective Interval history: Patient is doing well. No complaints. Exam Physical Exam Vital Signs: Temp Pulse Resp BP Pulse Ox O2 Del Method 97.9 F 69 18 148/81 H 97 Room Air 06/02/23 08:00 06/02/23 08:00 06/02/23 08:00 06/02/23 08:00 06/02/23 08:00 06/02/23 08:00 Eyes General: appearance normal, both eyes and all related structures Pupils: PERRL Neck Neck: normal visual inspection, supple and no lymphadenopathy noted Neck mass: No Thyroid: thyroid normal Carotids: normal carotid upstroke Chest Chest palpation & inspection: normal inspection of the chest Resp Effort & Inspection: normal respiratory effort Auscultation: clear to auscultation bilaterally Cardio Palpation: normal PMI Rhythm: abnormal rhythm irregularly irregular Heart Sounds: S1 normal and S2 normal GI Palpation: soft and no hepatosplenomegaly Percussion: normal to percussion Auscultation: normal bowel sounds Skin General: no rashes or lesions noted and dry skin Neuro General: patient alert, patient awake, patient oriented x3, tone normal and moves all extremities Objective Labs 06/01/23 10:32 Labs: Laboratory Results - last 24 hr 06/01/23 06/01/23 06/01/23 10:32 16:28 21:21 PT 33.9 H INR 3.1 PHA Creatinine Clear 93.64 Sodium 138 Potassium 4.0 Chloride 104 Carbon Dioxide 27.5 Anion Gap 10.5 BUN 19 Creatinine 0.79 Est GFR (CKD-EPI) > 60.0 Glucose 98 POC Glucose 113 102 POC Glucose Comment Glu2: cleaned meter Calcium 9.2 06/02/23 06/02/23 04:39 07:10 PT 32.1 H INR 2.9 PHA Creatinine Clear Sodium Potassium Chloride Carbon Dioxide Anion Gap BUN Creatinine Est GFR (CKD-EPI) Glucose POC Glucose 123 POC Glucose Comment Calcium A&P - Cardiology (1) Atrial fibrillation, persistent: Code(s): I48.19 - Other persistent atrial fibrillation (2) Rheumatoid arthritis: Code(s): M06.9 - Rheumatoid arthritis, unspecified (3) Diabetes: Code(s): E11.9 - Type 2 diabetes mellitus without complications Plan 1. I discussed again treatment option with the patient. We discussed proarrhythmic risk. We discussed the history of prolonged QTc arrival. We discussed his medication appropriately including hydrochloric when. Following the discussion the patient agreed to cautious administration of Tikosyn at redu champ dose 250 mg twice daily to avoid QTc prolongation. Will monitor QTc very closely . If the patient demonstrate any significant prolongation of QTc interval we will discontinue Tikosyn 2. Cardioversion tomorrow Documented By: Jose Angel Palmer MD 06/02/231116 Signed By: <Electronically signed by MD Jose Angel Palmer> 06/02/23 1118 [facility] Work Phone: 1(477) 173-172004-10-2024 History and physical note Author Jose Angel Palmer [facility] June 01, 2023 10:43amNote Date/TimeApril 2023 10:36[place] [id number] Cardiology H&P Signed Patient: Nereyda Barker MR#: [id number] : 1950 Acct:[id number] Age/Sex: 73 / M Adm Date: 4 Loc: 4P Room: [address] [place] [address] Type: ADM IN Attending Dr: Jose Angel Palmer MD Copies to: MD Richard Serrano MD~ Date of Service: 06/01/2023 Cardiology HPI History of Present Illness Chief complaint: Atrial fibrillation HPI: Mr. Barker is a 73 year old male admitted electively for Tikosyn load. Patient with atrial fibrillation. Unfortunately he failed Brouse flecainide and Rythmol. Patient atrial fibrillation had been symptomatic. During recent evaluation in the office and due to recurrence of his atrial fibrillation symptoms I recommended ablation but he declined and requested antiarrhythmic therapy we discussed amiodarone, Tikosyn versus sotalol. Following lengthy discussion the patient elected for Tikosyn load. I clearly advised the patient that success rate is in the 60% range to maintain sinus rhythm. In addition therisk of proarrhythmia discussed with him considering his home medications that include hydrochlorothiazide and hydroxychloroquine patient was admitted for Tikosyn load under observation. Patient understand the risk and the benefit Review of Systems Review of Systems Review of systems: Palpitation fatigue, tiredness, and shortness of breath as well but review of systems completely negative [facility] Medical History Former smoker History of cardioversion it didnt take Anemia History of COVID-2020 Asthma Multiple lipomas Hard of hearing Cataracts, both eyes Afib History of drainage of abscess Acid reflux High cholesterol Hypertension Diabetes mellitus type 2 Rheumatoid arthritis Surgical History History of carpal tunnel surgery of left wrist History of removal of cyst S/P excision of lipoma left arm Hx of colonoscopy with polypectomy Family History Grandparent Colon cancer Mother Cancer Father Diabetes Hypertension Brother COPD (chronic obstructive pulmonary disease) Brother Prostate cancer Father Mother Social History Smoking Status: Former smoker Tobacco Type: cigarettes Substance Use Type: None Social History Comments: grandson Meds Medications and Allergies Allergies Penicillins Allergy (Unknown, Verified 06/01/23 10:33) Hives Home Medications atorvastatin 10 mg tablet 10 mg PO QHS hyperlipidemia 03/23/18 [History Confirmed 06/01/23] leflunomide 20 mg tablet (Arava) 20 mg PO QHS RA 03/23/18 [History Confirmed 06/01/23] omeprazole magnesium 20 mg tablet,delayed release (Prilosec OTC) 40 mg PO QAM gerd 03/23/18 [History Confirmed 06/01/23] ferrous gluconate 324 mg (38 mg iron) tablet 1 tab PO QHS hx of anemia 07/09/19 [History Confirmed 06/01/23] hydrochlorothiazide 25 mg tablet 25 mg PO QAM htn 05/21/21 [History Confirmed 06/01/23] hydroxychloroquine 200 mg tablet 200 mg PO BID RA 05/21/21 [History Confirmed 06/01/23] losartan 100 mg tablet 100 mg PO QAM htn 05/21/21 [History Confirmed 06/01/23] metformin 500 mg tablet 500 mg PO QHS diabetes 05/21/21 [History Confirmed 06/01/23] prednisone 5 mg tablet 5 - 20 mg PO DIRECTED PRN RA flare 05/21/21 [History Confirmed 06/01/23] acetaminophen 650 mg tablet,extended release 1,300 mg PO Q12H PRN Pain 06/02/22 [History Confirmed 06/01/23] fluticasone 250 mcg-salmeterol 50 mcg/dose blistr powdr for inhalation (Advair Diskus) 1 inh inhalation BID asthma 06/02/22 [History Confirmed 06/01/23] warfarin 4 mg tablet 6 mg PO DIRECTED 06/02/22 [History Confirmed 06/01/23] warfarin 4 mg tablet 8 mg PO DIRECTED anticoagulation 06/02/22 [History Confirmed 06/01/23] insulin lispro 100 unit/mL subcutaneous cartridge (Humalog U-100 Insulin) 1 sliding scale dose subcut USEASDIRECTD 10/27/22 [History Confirmed 06/01/23] albuterol sulfate 90 mcg/actuation aerosol inhaler (ProAir HFA) 90 mcg inhalation 2XD PRN SOB 12/10/22 [History Confirmed 06/01/23] insulin glargine 100 unit/mL (3 mL) subcutaneous pen 12 unit subcut QAM PRN [id number] am blood sugar 04/06/23 [History Confirmed 06/01/23] melatonin 10 mg tablet 10 mg PO HS PRN Sleep 04/06/23 [History Confirmed 06/01/23] abatacept (with maltose) 250 mg intravenous solution 1,000 ml IV .monthly 06/01/23 [History Confirmed 06/01/23] Exam Physical Exam Vital Signs: Temp Pulse Resp BP Pulse Ox O2 Del Method 97.1 F L 89 20 185/97 H 96 Room Air 06/01/23 08:14 06/01/23 08:14 06/01/23 08:14 06/01/23 08:14 06/01/23 08:14 06/01/23 09:29 Const General: cooperative, comfortable, no acute distress and well developed HEENT Head: atraumatic Mouth: oral mucosae normal Eyes General: appearance normal, both eyes and all related structures Pupils: PERRL Neck Neck: normal visual inspection, supple and no lymphadenopathy noted Neck mass: No Thyroid: thyroid normal Carotids: normal carotid upstroke Chest Chest palpation & inspection: normal inspection of the chest Resp Effort & Inspection: normal respiratory effort Auscultation: clear to auscultation bilaterally Cardio Palpation: normal PMI Rhythm: abnormal rhythm irregularly irregular Heart Sounds: S1 normal and S2 normal GI Palpation: soft and no hepatosplenomegaly Percussion: normal to percussion Auscultation: normal bowel sounds Skin General: no rashes or lesions noted and dry skin Neuro General: patient alert, patient awake, patient oriented x3, tone normal and moves all extremities Extrem General: full ROM, capillary refill normal and no clubbing, cyanosis or edema Psych Mental Status: mental status grossly normal Results - Cardiology Labs Lab results: Intake and Output 05/31/23 06/01/23 06/01/23 23:59 07:59 15:59 Other: Weight 102.6 kg Date of Last Bowel Movement 06/01/23 Patient Weight 06/01/23 23:59 Weight 102.6 kg EKG Interpretations EKG Attestation EKG: I reviewed this ECG and interpreted as documented below: (Atrial fibrillation withcontrolled rate.) A&P - Cardiology (1) Atrial fibrillation, persistent: Code(s): I48.19 - Other persistent atrial fibrillation (2) Rheumatoid arthritis: Code(s): M06.9 - Rheumatoid arthritis, unspecified (3) Diabetes: Code(s): E11.9 - Type 2 diabetes mellitus without complications Plan 1. I discussed again treatment option with the patient. We discussed proarrhythmic risk. We discussed the history of prolonged QTc arrival. We discussed his medication appropriately including hydrochloric when. Following the discussion the patient agreed to cautious administration of Tikosyn at redu champ dose 250 mg twice daily to avoid QTc prolongation. Will monitor QTc very closely and proceed with cardioversion in 48 hours if remain in atrial fibrillation. If the patient demonstrate any significant prolongation of QTc interval we will discontinue Tikosyn Documented By: Jose Angel Palmer MD 06/01/23 1032 Signed By: <Electronically signed by MD Jose Angel Palmer> 06/01/23 1043 [facility] Work Phone: 1(302) 505-258901-29-2024 Evaluation note* Encounter Date Diagnosis Assessment Notes Treatment Notes Treatment Clinical Notes Feb, Medication monitoring encounter (ICD-10 - Z51.81) Referring Provider: Jose Angel Cottoosis: Atrial FibrillationGoal INR: 2-3 INR: 3.2 Warfarin Tablet Size: 4mg Tuesday: 8mg Tuesday: 6mg Tuesday: 8mg Tuesday: 8mg : 6mg Tuesday: 8mg Tuesday: 8mg Total Weekly Dose: 52mg Reduce to 4mg today, then continue plan above. Follow up in 2 weeks. Unable to determine cause of elevated INR, possibly less salads eaten per week. Patient's last INR was supratherapeutic and likely caused by DDI with prednisone. Clinical decisionto not change TWD at this time. Patient reports that he will be having a procedure in April that will require 4 weekly in range INRchecks prior to having the procedure. Patient will let [facility] know when these appointments need scheduled. Patient prefers appointments with , Lynda. Seen by Nena De La Cruz, [facility] [employer] Other 01-16-2024 Evaluation note* Encounter Date Diagnosis Assessment Notes Treatment Notes Treatment Clinical Notes Feb, Medication monitoring encounter (ICD-10 - Z51.81) Referring Provider: Mourhaf TraboulssiDiagnosis: Atrial FibrillationGoal INR: 2-3 INR: 4.3 Warfarin Tablet Size: 4mg Tuesday: 8mg Tuesday: 6mg Tuesday: 8mg Tuesday: 8mg : 6mg Tuesday: 8mg Tuesday: 8mg Total Weekly Dose: 52mg Hold for 2 days (03/08 & 03/09), then reduce (03/10) dose to 4mg (DDI with prednisone). Continue plan above. Follow up in 2 weeks. Patient reports starting a prednisone taper yesterday (03/07). Patient took 20mg on 03/07, 15mg on 03/08, will take 10mg on 03/09, and 5mg on 03/10. States they take this chronically, asneeded. Patient reports cutting back on his salads recently, along with increased Tylenol use. Predictied Tylenol use to be everyday, once to twice daily. The above factors are possibly a cause for his supratherapeutic INR. Patient reports that he will be having a procedure in April that will require 4 weekly in range INRchecks prior to having the procedure. Patient will let [facility] know when these appointments need scheduled. Patient prefers appointments with , Lynda. Seen by Rocio Malik, PharmD Candidate/Nena De La Cruz, [facility] [employer] Other 01-04-2024 Evaluation note* Encounter Date Diagnosis Assessment Notes Treatment Notes Treatment Clinical Notes Feb, Medication monitoring encounter (ICD-10 - Z51.81) Referring Provider: Jose Angel Tripathignosis: Atrial FibrillationGoal INR: 2-3 INR: 2.2 Warfarin Tablet Size: 4mg Tuesday: 8mg Tuesday: 6mg Tuesday: 8mg Tuesday: 8mg : 6mg Tuesday: 8mg Tuesday: 8mg Total Weekly Dose: 52mg Continue plan above. Follow up in 2 weeks, at previously scheduled appointment with . Azael presents 1 week post-procedure after holding warfarin for 5 days. Patient reports being on prednisone. States they take this chronically, as needed. Patient reports that he will be having a procedure in April that will require 4 weekly in range INRchecks prior to having the procedure. Patient will let [facility] know when these appointments need scheduled. Patient prefers appointments with Lynda. Seen by Sean Bourgeois PharmD [employer] Other 12-18-2023 Evaluation note* Encounter Date Diagnosis Assessment Notes Treatment Notes Treatment Clinical Notes Jan, Medication monitoring encounter (ICD-10 - Z51.81) Referring Provider: Jose Angel Tripathignosis: Atrial FibrillationGoal INR: 2-3 INR: 2.7 Warfarin Tablet Size: 4mg Tuesday: 8mg Tuesday: 6mg Tuesday: 8mg Tuesday: 8mg : 6mg Tuesday: 8mg Tuesday: 8mg Total Weekly Dose: 52mg Continue plan above. Follow up in 2 weeks. Patient to begin 5 day warfarin hold Monday 02/12 for procedure on 02/17. Procedure calendar reviewed and provided to patient at today's appointment. Patient verbalized understanding. Patient reports that he will be having a procedure in April that will require 4 weekly in range INRchecks prior to having the procedure. Patient will bring the information to his next appointment for scheduling. Patient prefers appointments with , Lynda. Seen by Nena De La Cruz [facility] [employer] Other 12-05-2023 History of Present illness Narrative* Jose Angel Palmer MD - 01/25/2023 3:30 PM EST Subjective Nereyda Barker is a 72 y.o. male Chief Complaint Follow-up HPI Patient is here for persistent atrial fibrillation and flutter, he failed flecainide and recently was placed on Rythmol and the dose was increased to 225 and he underwent cardioversion which was successful but the patient went back quickly to atrial fibrillation. He describes symptom fatigue and tiredness but denies chest pain. He denies lightheadedness, dizziness or syncope. He requested preoperative risk assessment for removal of abdominal fatty tumor. And request to hold his Coumadin for 4 to 5 days. Assessment 1. Persistent atrial fibrillation/flutter. Failed the flecainide and now Rythmol 2. Long-term anticoagulation switch recently to Coumadin for cost issue 3. Obesity with continued weight loss 4. Hypertension controlled 5. Diabetes mellitus 6. Rheumatoid arthritis 7. Patient request preoperative risk assessment for removal fatty tumor 8. Shortness of breath due to obesity and atrial fibrillation. His recent stress test was negative 9. Rheumatoid arthritis on prednisone Plan 1. I advised the patient that his operative risk is acceptable for low risk surgery. He can hold his Coumadin for 4 days prior to surgery 2. We discuss the duration of anticoagulation. Risk, benefit and alternative reviewed with patient he understood and agreed 3. Patient was counseled regarding losing weight, exercise and dietary modification 4. We discussed long-term treatment for atrial fibrillation. We discussed rhythm control strategy versus heart rate control strategy. We discussed antiarrhythmic versus ablation. Following lengthy discussion the patient is considering treatment with dofetilide however he would like to proceed with his surgery first I told him we can address that in 3 months. He will undergo his surgery and I willsee him in 3 months at that point of time we will make arrangement for dofetilide loading followed by cardioversion Review of Systems Constitutional: Positive for malaise/fatigue. Cardiovascular: Positive for dyspnea on exertion. Respiratory: Positive for shortness of breath. All other systems reviewed and are negative. Visit Vitals BP 134/84 (BP Location: Right arm, Patient Position: Sitting) Pulse 93 Ht 1.676 m (5' 6 ) Wt 103 kg (228 lb) BMI 36.80 kg/m Smoking Status Former BSA 2.19 m EKG done in office today Objective Physical Exam Constitutional: Appearance: Normal appearance. He is normal weight. HENT: Nose: Nose normal. Neck: Vascular: No carotid bruit. Cardiovascular: Rate and Rhythm: Normal rate. Rhythm irregularly irregular. Pulses: Normal pulses. Heart sounds: Normal heart sounds. Pulmonary: Effort: Pulmonary effort is normal. Abdominal: General: Bowel sounds are normal. Palpations: Abdomen is soft. Genitourinary: Rectum: Normal. Musculoskeletal: General: Normal range of motion. Cervical back: Normal range of motion. Right lower leg: No edema. Left lower leg: No edema. Skin: General: Skin is warm and dry. Neurological: General: No focal deficit present. Mental Status: He is alert. Psychiatric: Mood and Affect: Mood normal. Behavior: Behavior normal. Thought Content: Thought content normal. Judgment: Judgment normal. Current Medications Current Outpatient Medications: abatacept (Orencia) 125 mg/mL injection, Inject under the skin., Disp: , Rfl: acetaminophen (TYLENOL PO), Take 625 mg by mouth if needed., Disp: , Rfl: albuterol 90 mcg/actuation inhaler, Inhale. As directed., Disp: , Rfl: atorvastatin (Lipitor) 10 mg tablet, Take 1 tablet (10 mg) by mouth once daily., Disp: , Rfl: ferrous gluconate 324 (38 Fe) mg tablet, Take 1 tablet (324 mg) by mouth once daily., Disp: , Rfl: fluticasone propion-salmeteroL (Advair Diskus) 250-50 mcg/dose diskus inhaler, Inhale 1 puff 2 times a day. As directed, Disp: , Rfl: hydroCHLOROthiazide (HYDRODiuril) 25 mg tablet, Take 1 tablet (25 mg) by mouth once daily., Disp: ,Rfl: hydroxychloroquine (Plaquenil) 200 mg tablet, Take 1 tablet (200 mg) by mouth 2 times a day., Disp:, Rfl: insulin glargine (Lantus U-100 Insulin) 100 unit/mL injection, Inject 12 Units under the skin if needed. Take as directed per insulin instructions., Disp: , Rfl: insulin lispro (HumaLOG) 100 unit/mL injection, Inject under the skin once daily. Take as directed per insulin instructions., Disp: , Rfl: leflunomide (Arava) 20 mg tablet, Take 1 tablet (20 mg) by mouth once daily., Disp: , Rfl: losartan (Cozaar) 100 mg tablet, Take 1 tablet (100 mg) by mouth once daily., Disp: , Rfl: melatonin 10 mg tablet, Take 2 tablets (20 mg) by mouth once daily at bedtime., Disp: , Rfl: metFORMIN (Glucophage) 500 mg tablet, Take 1 tablet (500 mg) by mouth once daily with a meal., Disp: , Rfl: omeprazole (PriLOSEC) [address] capsule, Take 1 capsule (40 mg) by mouth once daily., Disp: , Rfl: predniSONE (Deltasone) 5 mg tablet, Take 1 tablet (5 mg) by mouth if needed., Disp: , Rfl: warfarin (Coumadin) 4 mg tablet, Take 2 tablets (8 mg) by mouth. As directed by [facility] Coumadin clinic Sun, Tue, Wed, Fri,Sat., Disp: , Rfl: warfarin (Coumadin) 6 mg tablet, Take 1 tablet (6 mg) by mouth. Take as directed per After Visit Summary. Mon. And ., Disp: , Rfl: zolpidem (Ambien) 5 mg tablet, Take 1 tablet (5 mg) by mouth once daily at bedtime., Disp: , Rfl: Assessment/Plan 1. Persistent atrial fibrillation (CMS/HCC) ECG 12 Lead Follow Up In Cardiology 2. Essential hypertension Follow Up In Cardiology 3. Typical atrial flutter (CMS/HCC) 4. Mixed hyperlipidemia 5. Anticoagulated 6. Shortness of breath 7. Rheumatoid arthritis, involving unspecified site, unspecified whether rheumatoid factor present (CMS/HCC) [facility] Work Phone: [phone]) 771-223312-05-2023 Instructions* Patient Instructions* Bibiana Hernandez LPN - 01/25/2023 3:30 PM EST Please bring all medicines, vitamins, and herbal supplements with you when you come to the office. Prescriptions will not be filled unless you are compliant with your follow up appointments or have a follow up appointment scheduled as per instruction of your physician. Refills should be requested at the time of your visit. Stop Propafenone Follow up 3 months Tikosyn 500mg drug load. Day 3 cardioversion discussed. Will discuss at next visit. [facility]Nor[facility] Work Phone: [phone]) 774-668311-07-2023 Evaluation note* Encounter Date Diagnosis Assessment Notes Treatment Notes Treatment Clinical Notes Dec, Medication monitoring encounter (ICD-10 - Z51.81) Referring Provider: Jose Angel Tripathignosis: Atrial FibrillationGoal INR: 2-3 INR: 3.0 Warfarin Tablet Size: 4mg Tuesday: 8mg Tuesday: 6mg Tuesday: 8mg Tuesday: 8mg : 6mg Tuesday: 8mg Tuesday: 8mg Total Weekly Dose: 52mg Continue plan above. Follow up in 4 weeks. Patient takes prednisone as needed, likely causing INR to increase to upper limits of goal. Patient instructed to contact [facility] if they take prednisone daily. Patient prefers appointments with Lynda. Seen by Jaylon Robbins/Nena De La Cruz, [facility] [employer] Other 10-23-2023 Procedure [facility]10-19-2023 Evaluation note* Encounter Date Diagnosis Assessment Notes Treatment Notes Treatment Clinical Notes Nov, Medication monitoring encounter (ICD-10 - Z51.81) Referring Provider: Jose Angel Cottoosis: Atrial FibrillationGoal INR: 2-3 INR: 2.6 Warfarin Tablet Size: 4mg Tuesday: 8mg Tuesday: 6mg Tuesday: 8mg Tuesday: 8mg : 6mg Tuesday: 8mg Tuesday: 8mg Total Weekly Dose: 52mg Continue plan above. Follow up in ~3 weeks, at previously scheduled appointment to align appointment with his . Patient completed steroid taper, doses were reduced to 6mg on 11/26 and 11/30. Patient reports they are continuing to take prednisone as needed. Patient instructed to contact [facility] if they take prednisone daily. Patient states they are having a cardioversion on 12/13. Patient states they don't need to hold warfarin for this. Patient instructed to contact [facility] with any changes to warfarin instructions. Patient is already scheduled 12/28 with Lynda. Seen by Sean Bourgeois PharmD [facility] [employer] Other 10-05-2023 Evaluation note* Encounter Date Diagnosis Assessment Notes Treatment Notes Treatment Clinical Notes Nov, Medication monitoring encounter (ICD-10 - Z51.81) Referring Provider: Jose Angel Cottoosis: Atrial FibrillationGoal INR: 2-3 INR: 3.1 Warfarin Tablet Size: 4mg Tuesday: 8mg Tuesday: 6mg Tuesday: 8mg Tuesday: 8mg : 6mg Tuesday: 8mg Tuesday: 8mg Total Weekly Dose: 52mg Continue plan above. Follow up in 2 weeks. Patient has an upper respiratory infection and states that he has an appointment with his PCP today. Patient will call [facility] if new medications are prescribed. Patient reports taking an increase amount of APAP recently, likely cause of elevated INR. Patient is already scheduled 12/28 with , Lynda. Seen by Nena De La Cruz, [facility] [employer] Other 09-12-2023 Evaluation note* Encounter Date Diagnosis Assessment Notes Treatment Notes Treatment Clinical Notes Oct, Medication monitoring encounter (ICD-10 - Z51.81) Referring Provider: Jose Angel Cottoosis: Atrial FibrillationGoal INR: 2-3 INR: 1.8 Warfarin Tablet Size: 4mg Tuesday: 8mg Tuesday: 6mg Tuesday: 8mg Tuesday: 8mg : 6mg Tuesday: 8mg Tuesday: 8mg Total Weekly Dose: 52mg Boost by 2mg today, then begin plan above, a 4% increase. Follow up in 3 weeks upon patient's return from trip. Patient presents 5 days following last INR check (INR 3.5). Patient's TWD was decreased4% (1 dose Sat 10/30). Patient has ~6 days remaining of prednisone taper for a respiratory infection.Patient is currently @ 20mg x 3days then 10mg x3 days then stop. Patient denies any missed doses orchanges in medication or diet. Unable to determine any other cause of subtherapeutic INR. Will return to previous TWD. Patient states he will be going out of town with his , Lynda, on 11/03 and will not return until the first week of November. Seen by Nena De La Cruz, [facility] [employer] Other 09-07-2023 Evaluation note* Encounter Date Diagnosis Assessment Notes Treatment Notes Treatment Clinical Notes Oct, Medication monitoring encounter (ICD-10 - Z51.81) Referring Provider: Jose Angel Cabral: Atrial FibrillationGoal INR: 2-3 INR: 3.5 Warfarin Tablet Size: 4mg Tuesday: 8mg Tuesday: 6mg Tuesday: 8mg Tuesday: 8mg : 6mg Tuesday: 8mg Tuesday: 6mg Total Weekly Dose: 50mg Pt presented for an INR re-check today due to starting a predisone taper, as follows: 40mg x3 days,30mg x3 days, 20mg x3 days, 10mg x3 days (end date ~November 07). Reduce to 4mg today, (10/28) then start new plan above, a 4% reduction. Follow up on November 02. Patient states he will be going out of town with his , Lynda, on 11/03 and will not return until the first week of November. Seen by Mesha Mattson PharmD/Sean Bourgeois PharmD [employer] Other 08-31-2023 Evaluation note* Encounter Date Diagnosis Assessment Notes Treatment Notes Treatment Clinical Notes Sep, Medication monitoring encounter (ICD-10 - Z51.81) Referring Provider: Jose Angel Cabral: Atrial FibrillationGoal INR: 2-3 INR: 3.5 Warfarin Tablet Size: 4mg Tuesday: 8mg Tuesday: 6mg Tuesday: 8mg Tuesday: 8mg : 6mg Tuesday: 8mg Tuesday: 8mg Total Weekly Dose: 52mg Reduce to 4mg today, (10/21) then continue the plan above. Follow up in 2 weeks. Patient had an infusion yesterday in which he was pretreated with Tylenol, which he ususally doesn't take. He has also been feeling sick the last few days and has taken Robitussin and Theraflu. The combination of these factors is possibly contributing to supratherapeutic INR. Clinical decision not to adjust warfarin regimen at this time, due to this. Patient states he will be going out of town with his , Lynda, on 11/03 and will not return until the first week of November. Seen by Aiden Valdes, Jaylon Candidate/Saen Bourgeois PharmD [employer] Other 08-23-2023 Evaluation note* Encounter Date Diagnosis Assessment Notes Treatment Notes Treatment Clinical Notes Sep, Medication monitoring encounter (ICD-10 - Z51.81) Referring Provider: Jose Angel Cabral: Atrial FibrillationGoal INR: 2-3 INR: 3.8 Warfarin Tablet Size: 4mg Tuesday: 8mg Tuesday: 6mg Tuesday: 8mg Tuesday: 8mg : 6mg Tuesday: 8mg Tuesday: 8mg Total Weekly Dose: 52mg Hold warfarin tomorrow (10/14), as patient has already taken dose today. Then continue the plan above. Follow up in 1 week. Patient is to complete a 2 week taper of prednisone 10mg BID tomorrow. Patient also mentions they may be eating less vitamin K foods. These are both likely contributing to supratherapeutic INR. Patient notes no other medication changes. Patient is present with his , Lynda. Seen by Aiden Valdes, PharmD Candidate/Sean Bourgeois PharmD [employer] Other 07-26-2023 Evaluation note* Encounter Date Diagnosis Assessment Notes Treatment Notes Treatment Clinical Notes Aug, Medication monitoring encounter (ICD-10 - Z51.81) Referring Provider: Jose Angel Cabral: Atrial FibrillationGoal INR: 2-3 INR: 2.6 Warfarin Tablet Size: 4mg Tuesday: 8mg Tuesday: 6mg Tuesday: 8mg Tuesday: 8mg : 6mg Tuesday: 8mg Tuesday: 8mg Total Weekly Dose: 52mg Continue current plan. Follow-up in 4 weeks. Patient is present with his , Lynda. Seen by Ramez Mayberry, HarrietD Candidate/Sean Bourgeois PharmD [employer] Other 06-29-2023 Evaluation note* Encounter Date Diagnosis Assessment Notes Treatment Notes Treatment Clinical Notes Jul, Medication monitoring encounter (ICD-10 - Z51.81) Referring Provider: Jose Angel Cabral: Atrial FibrillationGoal INR: 2-3 INR: 3.0 Warfarin Tablet Size: 4mg Tuesday: 8mg Tuesday: 6mg Tuesday: 8mg Tuesday: 8mg : 6mg Tuesday: 8mg Tuesday: 8mg Total Weekly Dose: 52mg Continue current plan. Follow-up in 4 weeks. Patient's medication list updated today. Patient reports propafenone has been increased to 225mg q8h. Patient states that he started doxycycline for 10 days on 08/16. Patient is present with his , Lynda who is also seen for an appointment. Seen by Nena De La Cruz, [facility] [employer] Other 06-01-2023 Evaluation note* Encounter Date Diagnosis Assessment Notes Treatment Notes Treatment Clinical Notes Jul, Medication monitoring encounter (ICD-10 - Z51.81) Referring Provider: Jose Angel Cottoosis: Atrial FibrillationGoal INR: 2-3 INR: 2.5 Warfarin Tablet Size: 4mg Tuesday: 8mg Tuesday: 6mg Tuesday: 8mg Tuesday: 8mg : 6mg Tuesday: 8mg Tuesday: 8mg Total Weekly Dose: 52mg Continue current plan. Follow-up in 4 weeks. Patient's medication list updated today. Patient reports that he discontinued flecainide due to side effects and started propafenone. Patient is present with his , Lynda who is also seen for an appointment. Seen by Nena De La Cruz, [facility] [employer] Other 05-09-2023 Evaluation note* Encounter Date Diagnosis Assessment Notes Treatment Notes Treatment Clinical Notes June, Medication monitoring encounter (ICD-10 - Z51.81) Referring Provider: Jose Angel Cabral: Atrial FibrillationGoal INR: 2-3 INR: 2.0 Warfarin Tablet Size: 4mg Tuesday: 8mg Tuesday: 6mg Tuesday: 8mg Tuesday: 8mg : 6mg Tuesday: 8mg Tuesday: 8mg Total Weekly Dose: 52mg Continue current plan. Follow-up in 3 weeks. Patient's medication list updated today. Patient is present with his , Lynda who is also seen for an appointment. Seen by Nena De La Cruz, [facility] [employer] Other 05-04-2023 Evaluation note* Encounter Date Diagnosis Assessment Notes Treatment Notes Treatment Clinical Notes June, Left carpal tunnel syndrome (ICD -10 - G56.02) The patient states his hand does not get is numb as it used to during the day indicating the carpaltunnel probably helped slightly. Sutures were removed wound is healing well he will come back in February to evaluate the other hand. He is happy at this point with progress [employer] Other 04-27-2023 Evaluation note* Encounter Date Diagnosis Assessment Notes Treatment Notes Treatment Clinical Notes May, Medication monitoring encounter (ICD-10 - Z51.81) Referring Provider: Jose Angel Cabral: Atrial FibrillationGoal INR: 2-3 INR: 1.8 Warfarin Tablet Size: 4mg Raj: 8mg Tuesday: 6mg Tuesday: 8mg Tuesday: 8mg : 6mg Tuesday: 8mg Tuesday: 8mg Total Weekly Dose: 52mg Boost by 2mg today, then continue current plan. Follow-up in 2 weeks. Patient presents today 1 weekpost carpal tunnel surgery for which warfarin was held for 4 days prior. This is the likely cause of today's low INR. Patient is present with his , Lynda who is also seen for an appointment. Seen by Nena De La Cruz, [facility] [employer] Other 04-13-2023 Evaluation note* Encounter Date Diagnosis Assessment Notes Treatment Notes Treatment Clinical Notes May, Medication monitoring encounter (ICD-10 - Z51.81) Referring Provider: Jose Angel Cabral: Atrial FibrillationGoal INR: 2-3 INR: 2.8 Warfarin Tablet Size: 4mg Tuesday: 8mg Tuesday: 6mg Tuesday: 8mg Tuesday: 8mg : 6mg Tuesday: 8mg Tuesday: 8mg Total Weekly Dose: 52mg Continue current plan. Follow-up in 2 weeks post procedure. Patient is scheduled for carpal tunnel surgery 06/09 and will hold warfarin for 4 days prior. A procedure calendar with holding instructions was reviewed and provided at today's appointment. Patient verbalizes understanding instructions. Patient is present with his , Lynda who is also seen for an appointment. Seen by Nena De La Cruz, [facility] [employer] Other 03-21-2023 Evaluation note* Encounter Date Diagnosis Assessment Notes Treatment Notes Treatment Clinical Notes Apr, Medication monitoring encounter (ICD-10 - Z51.81) Referring Provider: Jose Angel Cabral: Atrial FibrillationGoal INR: 2-3 INR: 2.4 Warfarin Tablet Size: 4mg Tuesday: 8mg Tuesday: 6mg Tuesday: 8mg Tuesday: 8mg : 6mg Tuesday: 8mg Tuesday: 8mg Total Weekly Dose: 52mg Continue current plan. Follow-up in 4 weeks. Patient is present with his , Lynda who is also seen for an appointment. Seen by Dali Salazar, [facility] [employer] Other 03-21-2023 Evaluation note* Encounter Date Diagnosis Assessment Notes Treatment Notes Treatment Clinical Notes Apr, Left carpal tunnel syndrome (ICD -10 - G56.02) I have independently reviewed theEMG of the left upper extremity which shows severe carpal tunnel syndrome. The patient certainly has symptoms the numbness in his fingertips may not get better and this was explained to him in detail. He understands he needs to undergo left carpal tunnel decompression for the severe carpal tunnel syndrome. He understands indication operation postop course risk andbenefits of surgery and complications to include regional pain syndrome in the hand incomplete relief of symptoms and infection at the site. The patient would like to proceed with surgical intervention. [employer] Other 02-20-2023 Evaluation note* Encounter Date Diagnosis Assessment Notes Treatment Notes Treatment Clinical Notes Mar, Medication monitoring encounter (ICD-10 - Z51.81) Referring Provider: Jose Angel Tripathignosis: Atrial FibrillationGoal INR: 2-3 INR: 2.2 Warfarin Tablet Size: 4mg Tuesday: 8mg Tuesday: 6mg Tuesday: 8mg Tuesday: 8mg : 6mg Tuesday: 8mg Tuesday: 8mg Total Weekly Dose: 52mg Continue current plan. Follow-up in 4 weeks. Patient is present with his , Lynda who is also seen for an appointment. Seen by Nena De La Cruz, [facility] [employer] Other 02-02-2023 Evaluation note* Encounter Date Diagnosis Assessment Notes Treatment Notes Treatment Clinical Notes Mar, Cervical stenosis of spinal elizabeth l (ICD-10 - M48.02) I independently reviewed the MRI of the cervical spine and the plain x-ray of the cervical spine. There is a sense that there is cord signal change with crowding of the cord but the radiology report disputes that. Clinically the patient only has symptoms of carpal tunnel on the left no hyperreflexia no spasticity no weakness. I would like to obtain an EMG of the left upper extremity and reevaluate the patient on a second visit once EMG results are available. Mar,Left carpal tunnel syndrome (ICD-10 - G56.02)Clinically the patient only has symptoms of carpal tunnel on the left no hyperreflexia no spasticity no weakness. I would like to obtain an EMG of the left upper extremity and reevaluate the patient on a second visit once EMG results are available. [employer] Other 01-23-2023 Evaluation note* Encounter Date Diagnosis Assessment Notes Treatment Notes Treatment Clinical Notes Feb, Medication monitoring encounter (ICD-10 - Z51.81) Referring Provider: Jose Angel Cabral: Atrial FibrillationGoal INR: 2-3 INR: 2.5 Warfarin Tablet Size: 4mg Tuesday: 8mg Tuesday: 6mg Tuesday: 8mg Tuesday: 8mg : 6mg Tuesday: 8mg Tuesday: 8mg Total Weekly Dose: 52mg Continue current plan. Follow-up in 4 weeks. Patient is present with his , Lynda who is also seen for an appointment. Seen by Nena De La Cruz, [facility] [employer] Other 12-22-2022 Evaluation note* Encounter Date Diagnosis Assessment Notes Treatment Notes Treatment Clinical Notes Jan, Medication monitoring encounter (ICD-10 - Z51.81) Referring Provider: Jose Angel Cottoosis: Atrial FibrillationGoal INR: 2-3 INR: 2.3 Warfarin Tablet Size: 4mg Tuesday: 8mg Tuesday: 6mg Tuesday: 8mg Tuesday: 8mg : 6mg Tuesday: 8mg Tuesday: 8mg Total Weekly Dose: 52mg Continue current plan. Follow-up in 2 weeks. Patient is present with his , Lynda who is also seen for an appointment. Seen by Nnea De La Cruz, [facility] [employer] Other 11-29-2022 Evaluation note* Encounter Date Diagnosis Assessment Notes Treatment Notes Treatment Clinical Notes Dec, Medication monitoring encounter (ICD-10 - Z51.81) Referring Provider: Jose Angel Cabral: Atrial FibrillationGoal INR: 2-3 INR: 2.4 Warfarin Tablet Size: 4mg Raj: 8mg Tuesday: 6mg Tuesday: 8mg Tuesday: 8mg : 6mg Tuesday: 8mg Tuesday: 8mg Total Weekly Dose: 52mg Continue current plan. Follow-up in 3 weeks. Patient is present with his , Lynda who is also seen for an appointment. Seen by Parish Vazquez PharmD [employer] Other 10-31-2022 Evaluation note* Encounter Date Diagnosis Assessment Notes Treatment Notes Treatment Clinical Notes Nov, Medication monitoring encounter (ICD-10 - Z51.81) Referring Provider: Jose Angel Cabral: Atrial FibrillationGoal INR: 2-3 INR: 2.8 Warfarin Tablet Size: 4mg Tuesday: 8mg Tuesday: 6mg Tuesday: 8mg Tuesday: 8mg : 6mg Tuesday: 8mg Tuesday: 8mg Total Weekly Dose: 52mg Continue current plan. Follow-up in 3 weeks. Patient is present with his , Lynda who is also seen for an appointment. Seen by Nevin Evangelista PharmD [employer] Other 10-10-2022 Evaluation note* Encounter Date Diagnosis Assessment Notes Treatment Notes Treatment Clinical Notes Nov, Medication monitoring encounter (ICD-10 - Z51.81) Referring Provider: Jose Angel Cabral: Atrial FibrillationGoal INR: 2-3 INR: 2.9 Warfarin Tablet Size: 4mg Raj: 8mg Tuesday: 6mg Tuesday: 8mg Tuesday: 8mg : 6mg Tuesday: 8mg Tuesday: 8mg Total Weekly Dose: 52mg Continue current plan. Follow-up in 3 weeks. Patient is present with his , Lynda who is also seen for an appointment. Seen by Nevin Evangelista PharmD [employer] Other 09-12-2022 Evaluation note* Encounter Date Diagnosis Assessment Notes Treatment Notes Treatment Clinical Notes Oct, Medication monitoring encounter (ICD-10 - Z51.81) Referring Provider: Jose Angel Cottoosis: Atrial FibrillationGoal INR: 2-3 INR: 2.4 Warfarin Tablet Size: 4mg Raj: 8mg Tuesday: 6mg Tuesday: 8mg Tuesday: 8mg : 6mg Tuesday: 8mg Tuesday: 8mg Total Weekly Dose: 52mg Continue current plan. Follow-up in 4 weeks. Patient is present with his , Lynda who is also seen for an appointment. Seen by vEer Akhtar PharmD [employer] Other 07-27-2022 Evaluation note* Encounter Date Diagnosis Assessment Notes Treatment Notes Treatment Clinical Notes Aug, Medication monitoring encounter (ICD-10 - Z51.81) Referring Provider: Jose Angel Cottoosis: Atrial FibrillationGoal INR: 2-3 INR: 1.7 Warfarin Tablet Size: 4mg Tuesday: 8mg Tuesday: 6mg Tuesday: 8mg Tuesday: 6mg : 6mg Tuesday: 8mg Tuesday: 6mg Total Weekly Dose: 48mg Determining Dose. Boost additional 2mg , Saturday 09/16 and then begin new plan, a 4% increase. Follow up in 3 weeks. Seen by Ayaka Collins RN [employer] Other 07-07-2022 Evaluation note* Encounter Date Diagnosis Assessment Notes Treatment Notes Treatment Clinical Notes Aug, Microscopic colitis, unspecified microscopic colitis type (ICD-10 - K52.839) Aug,therpatient states going about a dozen times a day does have urgency ongoing for about 1 year. we will start medication at this time then proceed with Colonoscopy if this does not help. [employer] Other 07-05-2022 Evaluation note* Encounter Date Diagnosis Assessment Notes Treatment Notes Treatment Clinical Notes Aug, Medication monitoring encounter (ICD-10 - Z51.81) Referring Provider: Jose Angel Cottoosis: Atrial FibrillationGoal INR: 2-3 INR: 2.0 Warfarin Tablet Size: 4mg Tuesday: 6mg Tuesday: 6mg Tuesday: 8mg Tuesday: 6mg : 6mg Tuesday: 8mg Tuesday: 6mg Total Weekly Dose: 46mg Continue above plan. Follow up in 2 weeks. Seen by Parish Vazquez PharmD [employer] Other 06-20-2022 Evaluation note* Encounter Date Diagnosis Assessment Notes Treatment Notes Treatment Clinical Notes Jul, Medication monitoring encounter (ICD-10 - Z51.81) Referring Provider: Jose Angel Cabral: Atrial FibrillationGoal INR: 2-3 INR: 2.2 Warfarin Tablet Size: 4mg Tuesday: 6mg Tuesday: 6mg Tuesday: 8mg Tuesday: 6mg : 6mg Tuesday: 8mg Tuesday: 6mg Total Weekly Dose: 46mg Continue above plan. Follow up in 2 weeks. Seen by Harvey Lugo PharmD candidate/ Parish Vazquez PharmD [employer] Other 06-06-2022 Evaluation note* Encounter Date Diagnosis Assessment Notes Treatment Notes Treatment Clinical Notes Jul, Medication monitoring encounter (ICD-10 - Z51.81) Referring Physician: Dr. Jose Angel Cabral: Atrial fibrillationGoal INR: 2-3 INR: 1.6 Prescribed dose: 4mg Tuesday: 6mg Tuesday: 6mg Tuesday: 8mg Tuesday: 6mg : 6mg Tuesday: 8mg Tuesday: 6mg Total weekly plan: 46mg Determining Dose. Boost additional 2mg today, 07/27 and then continue above plan. INR may be low due to recent adjustment for prednisone taper, last dose 08/03. See calendar. Follow up in 2 weeks. Seen by Ayaka Collins RN [employer] Other 05-16-2022 Evaluation note* Encounter Date Diagnosis Assessment Notes Treatment Notes Treatment Clinical Notes June, Medication monitoring encounter (ICD-10 - Z51.81) Referring Physician: Dr. Jose Angel Cabral: Atrial fibrillationGoal INR: 2-3 INR: 2.1 Prescribed dose: 4mg Tuesday: 6mg Tuesday: 6mg Tuesday: 8mg Tuesday: 6mg : 6mg Tuesday: 8mg Tuesday: 6mg Total weekly plan: 46mg Determining Dose. Continue above plan. Follow up in 8 days. Patient starting Medrol 4mg dose jean paul today 07/06/21. Per [employer]-comp: Salicylates may enhance the anticoagulant effect of Vitamin K Antagonists. Calendar prepared. Seen by Caryn Cline LPN [employer] Other 05-05-2022 Evaluation note* Encounter Date Diagnosis Assessment Notes Treatment Notes Treatment Clinical Notes June, Medication monitoring encounter (ICD-10 - Z51.81) Referring Physician: Dr. Jose Angel Cabral: Atrial fibrillationGoal INR: 2-3 INR: 1.4 Prescribed dose: 4mg Tuesday: 6mg Tuesday: 6mg Tuesday: 8mg Tuesday: 6mg : 6mg Tuesday: 8mg Tuesday: 6mg Total weekly plan: 46mg Determining Dose. Boost additional x3 and begin new plan an aggressive increase due to patient not responding to previous increases. Patient will be out of town in recommened 7 day f/u as he will be driving to and from [place]. Follow up in 10 days. Schedule with Lynda. Patient is taking Keto LifeStyle vitamin for weight loss and it does not have vitamin K. Seen by Ayaka Collins RN [employer] Other 04-28-2022 Evaluation note* Encounter Date Diagnosis Assessment Notes Treatment Notes Treatment Clinical Notes May, Medication monitoring encounter (ICD-10 - Z51.81) Referring Physician: Dr. Jose Angel Cabral: Atrial fibrillationGoal INR: 2-3 INR: 1.3 Prescribed dose: 4mg Tuesday: 4mg Tuesday: 6mg Tuesday: 4mg Tuesday: 4mg : 8mg Tuesday: 8mg Tuesday: 6mg Total weekly plan: 40mg Determining Dose. Boost additional x3 and begin new plan an 11% increase. Follow up in 1 week. Above INR is reflecting 36mg in 7 days. Seen by Ayaka Collins RN [employer] Other 04-20-2022 Evaluation note* Encounter Date Diagnosis Assessment Notes Treatment Notes Treatment Clinical Notes May, Medication monitoring encounter (ICD-10 - Z51.81) Referring Physician: Dr. Jose Angel Tripathignosis: Atrial fibrillationGoal INR: 2-3 INR: 1.0 Prescribed dose: 4mg Tuesday: 6mg Tuesday: 4mg Tuesday: 6mg Tuesday: 4mg : 6mg Tuesday: 4mg Tuesday: 6mg Total weekly plan: 36mg Determining Dose. Boost additional 2mg x3 days and begin new plan. Follow up in 1 week. See calendar. Above INR is reflecting warfarin 20mg in 5 days, starting warfarin on 06/05. A prescription for warfarin is called into [facility] in [place]. Patient is present with Lynda. Seen by Ayaka Collins RN May,therDiscussed adherence of clinic guidelines. Education provided regarding diet, medication compliance,clinic appointment compliance, signs and symptoms to call clinic or physician or ER. Risks and Benefits of anticoagulation therapy provided. Informed patient to call the clinic with any and all changes in medications or missed doses. You do not need to avoid eating food with vitamin K while on warfarin, just stay consistent with the amount you eat per week. Instructions to not follow directions on warfarin medication bottle. This may change with each visit. Follow instructions on your take home sheet. [employer] Other [employer] complaint+Reason for visit Narrative* Chief Complaint M05.79 M15.0 Z79.899 INR Follow Up INR Follow Up M05.79 M15.0 Z79.899 INR f/u pre procedure Hx of colon polypsReason for VisitAfib Afib [facility] Work Phone: Chinb complaint+Reason for visit Narrative* Chief Complaint M05.79 M15.0 Z79.899 INR Follow Up INR Follow Up M05.79 M15.0 Z79.899 INR f/u pre procedure Hx of colon polyps INR f/[facility]Reason [facility] Work Phone: Chijg complaint+Reason for visit Narrative* Chief Complaint M05.79 M15.0 Z79.899 INR Follow Up INR Follow Up M05.79 M15.0 Z79.899 INR f/u pre procedure Hx of colon polyps INR f/u Amb Documentation INR f/uReason for VisitAfib Afib Afib Afib Afib [facility] Work Phone: Chief complaint+Reason for visit Narrative* Chief Complaint INR Follow Up M05.79 M15.0 Z79.899 INR f/u pre procedure Hx of colon polyps INR f/u Amb Documentation INR f/u INR f/uReason for VisitAfib Afib Afib Afib Afib [facility] Work Phone: Evaluation noteNo InformationNort Buru [employer] Other Evaluation noteNo assessment information available [facility] Work Phone: evaluation note* Diagnosis Persistent atrial fibrillation (CMS/HCC)- Primary Atrial fibrillation Essential hypertension Unspecified essential hypertension Typical atrial flutter (CMS/HCC) Mixed hyperlipidemia Anticoagulated Encounter for long-term (current) use of anticoagulants Shortness of breath Rheumatoid arthritis, involving unspecified site, unspecified whether rheumatoid factor present (CMS/HCC) documented in this encounter [facility] Work Phone: Evaluation note* Diagnosis Onset Date Resolution Status Afib acute [facility] Work Phone: Evaluation note* Diagnosis Onset Date Resolution Status Afib acuteAfibacuteAfibacute [facility] Work Phone: Evaluation note* Diagnosis Onset Date Resolution Status Afib acuteAfibacuteAfibacuteAfibacute [facility] Work Phone: Evaluation note* Diagnosis Onset Date Resolution Status Afib acuteAfibacuteAfibacuteAfibacuteAfibacute [facility] Work Phone: Evaluation note* Diagnosis Onset Date Resolution Status Afib acuteAfibacuteAfibacuteAfibacuteAfibacuteAtrial fibrillation, persistentacute DiabeteschronicRheumatoid arthritischronic [facility] Work Phone: Evaluation note* Diagnosis Onset Date Resolution Status Afib acuteAfibacuteAfibacuteAfibacuteAfibacuteAtrial fibrillation, persistentacute DiabeteschronicRheumatoid arthritischronicAfibate [facility] Work Phone: Evaluation note* Diagnosis Persistent atrial fibrillation (Multi) Atrial fibrillation documented in this encounter [facility] Work Phone: Evaluation note* Diagnosis Persistent atrial fibrillation (Multi) Atrial fibrillation Persistent atrial fibrillation (Multi)- Primary Atrial fibrillation Persistent atrial fibrillation (Multi) Atrial fibrillation documented in this encounter [facility] Work Phone: Evaluation note* Diagnosis Persistent atrial fibrillation (Multi)- Primary Atrial fibrillation Diabetes mellitus, type 2 (Multi) Type II or unspecified type diabetes mellitus without mention of complication, not stated as uncontrolled documented in this encounter [facility] Work Phone: Evaluation note* Diagnosis Onset Date Resolution Status Afib acuteAfibacuteAfibacuteAfibacuteAtrial fibrillation, persistentacuteDiabetes chronicRheumatoid arthritischronicAfibacuteAfibacuteAfibate [facility] Work Phone: Evaluation note* Diagnosis Onset Date Resolution Status Afib acuteAfibacuteAfibacuteAfibacuteAtrial fibrillation, persistentacuteDiabetes chronicRheumatoid arthritischronicAfibacuteAfibacuteAfibacuteAfibate [facility] Work Phone: Evaluation note* Diagnosis Onset Date Resolution Status Afib acuteAfibacuteAfibacuteAtrial fibrillation, persistentacuteDiabeteschronic Rheumatoid arthritischronicAfibacuteAfibacuteAfibacuteAfibacuteAfibate [facility] Work Phone: Evaluation note* Diagnosis Onset Date Resolution Status Afib acuteAfibacuteAfibacuteAtrial fibrillation, persistentacuteDiabeteschronic Rheumatoid arthritischronicAfibacuteAfibacuteAfibacuteAfibacuteAfibacuteAfib [facility] Work Phone: Evaluation note* Diagnosis Persistent atrial fibrillation (Multi)- Primary Atrial fibrillation documented in this encounter [facility] Work Phone: Evaluation note* Diagnosis Typical atrial flutter (Multi)- Primary Persistent atrial fibrillation (Multi) Atrial fibrillation Essential hypertension Unspecified essential hypertension Mixed hyperlipidemia Anticoagulated Encounter for long-term (current) use of anticoagulants BMI 36.0-36.9,adult Rheumatoid arthritis, involving unspecified site, unspecified whether rheumatoid factor present (Multi) Shortness of breath documented in this encounter [facility] Work Phone: Evaluation note* Diagnosis Onset Date Resolution Status Atrial fibrillation, persistent acuteDiabeteschronicRheumatoid arthritischronicAfibacuteAfibacuteAfibacuteAfib [facility] Work Phone: Evaluation note* Diagnosis Onset Date Resolution Status Atrial fibrillation, persistent acuteDiabeteschronicRheumatoid arthritischronicAfibacuteAfibacuteAfibacuteAfib [facility] Work Phone[facility]* Diagnosis Onset Date Resolution Status Afib acuteAfibacuteAfibacuteAfibacute[facility] Work Phone: Evaluation note* Diagnosis Persistent atrial fibrillation (Multi)- Primary Atrial fibrillation Typical atrial flutter (Multi) History of cardiac radiofrequency ablation (RFA) Mixed hyperlipidemia Essential hypertension Unspecified essential hypertension Anticoagulated Encounter for long-term (current) use of anticoagulants Shortness of breath Former smoker Personal history of tobacco use, presenting hazards to health BMI 37.0-37.9, adult documented in this encounter [facility] Work Phone: Evaluation note* Diagnosis Persistent atrial fibrillation (Multi)- Primary Atrial fibrillation documented in this encounter [facility] Work Phone: Evaluation note* Diagnosis Chronic neck pain- Primary Cervicalgia documented in this encounter [facility]* Diagnosis Essential hypertension (CMS/HCC)- Primary Unspecified essential hypertension Type 2 diabetes mellitus with diabetic neuropathy, unspecified ([facility]) Paroxysmal atrial fibrillation ([facility]) Atrial fibrillation Mixed hyperlipidemia ([facility]) Mixed hyperlipidemia Rheumatoid arthritis involving multiple sites with positive rheumatoid factor ([facility]) Iron deficiency anemia, unspecified iron deficiency anemia type Moderate persistent asthma without complication ([facility]) Gastroesophageal reflux disease without esophagitis Esophageal reflux Benign prostatic hyperplasia without urinary obstruction Primary insomnia Persistent disorder of initiating or maintaining sleep Vitamin B12 deficiency Other B-complex deficiencies Elevated PSA Elevated prostate specific antigen (PSA) Chronic diarrhea Diarrhea Rash Rash and other nonspecific skin eruption Morbid (severe) obesity due to excess calories ([facility]) BMI 36.0-36.9,adult documented [facility] encounter [facility]* Diagnosis Weakness of hip- Primary Severe obesity (BMI 35.0-39.9) with comorbidity ([facility]) Low back pain, unspecified back pain laterality, unspecified chronicity, unspecified whether sciatica present documented in this encounter [facility] HealthcareEvaluation note* Diagnosis Weakness of hip- Primary Severe obesity (BMI 35.0-39.9) with comorbidity ([facility]) Low back pain, unspecified back pain laterality, unspecified chronicity, unspecified whether sciatica present [facility]* Diagnosis Right hip pain- Primary Pain in joint, pelvic region and thigh Other porphyria ([facility]) Essential hypertension ([facility]) Unspecified essential hypertension Osteoarthritis of right hip, unspecified osteoarthritis type documented [facility]* Diagnosis Other atopic dermatitis Inflamed skin tag Localized tenderness Other general symptoms documented [facility]* Diagnosis Onychomycosis- Primary Dermatophytosis of nail Corns and callosities Bilateral foot pain Bursitis of both feet documented [facility]* Diagnosis Persistent atrial fibrillation (Multi)- Primary Atrial fibrillation Mixed hyperlipidemia History of cardiac radiofrequency ablation (RFA) Essential hypertension Unspecified essential hypertension Typical atrial flutter (Multi) Anticoagulated Encounter for long-term (current) use of anticoagulants Shortness of breath BMI 37.0-37.9, adult Former smoker Personal history of tobacco use, presenting hazards to health documented in this encounter [facility] Work Phone: Evaluation note* Diagnosis Persistent atrial fibrillation (Multi)- Primary Atrial fibrillation documented in this encounter [facility] Work Phone: Evaluation note* Diagnosis Persistent atrial fibrillation (Multi)- Primary Atrial fibrillation Typical atrial flutter (Multi) Essential hypertension Unspecified essential hypertension Mixed hyperlipidemia Anticoagulated Encounter for long-term (current) use of anticoagulants Type 2 diabetes mellitus without complication, with long-term current use of insulin Former smoker Personal history of tobacco use, presenting hazards to health BMI 35.0-35.9,adult Other porphyria Unspecified porphyria (Multi) documented in this encounter [facility] Work Phone: Evaluation note* Diagnosis Type 2 diabetes mellitus with diabetic neuropathy, with long-term current use of insulin (HCC)- Primary Essential hypertension Unspecified essential hypertension Mixed hyperlipidemia Mixed hyperlipidemia Paroxysmal atrial fibrillation (HCC) Atrial fibrillation Other iron deficiency anemia Rheumatoid arthritis involving multiple sites with positive rheumatoid factor ([facility]) Vitamin B12 deficiency Other B-complex deficiencies Primary insomnia Persistent disorder of initiating or maintaining sleep Severe obesity (BMI 35.0-39.9) with comorbidity ([facility]) BMI 36.0-36.9,adult Medicare annual wellness visit, subsequent ACP (advance care planning) Other specified counseling Chronic bilateral low back pain without sciatica Weakness of both lower extremities Lumbar spondylosis Lumbosacral spondylosis without myelopathy Need for vaccination with 20-polyvalent pneumococcal conjugate vaccine documented in this encounter [facility]* Diagnosis Persistent atrial fibrillation (Multi) Atrial fibrillation Anticoagulated Encounter for long-term (current) use of anticoagulants documented in this encounter [facility] Work Phone: Evaluation note* Diagnosis Encounter for examination for normal comparison and control in clinical research program- Primary Persistent atrial fibrillation (Multi) Atrial fibrillation Encounter for examination for normal comparison and control in clinical research program Pre-op exam Unspecified atrial fibrillation (Multi) Post-operative state Other postprocedural status Persistent atrial fibrillation (Multi) Atrial fibrillation Persistent atrial fibrillation (Multi) Atrial fibrillation Encounter for examination for normal comparison and control in clinical research program documented in this encounter [facility] Work Phone: Evaluation note* Diagnosis Persistent atrial fibrillation (Multi)- Primary Atrial fibrillation Mixed hyperlipidemia History of cardiac radiofrequency ablation (RFA) Essential hypertension Unspecified essential hypertension Typical atrial flutter (Multi) Shortness of breath Type 2 diabetes mellitus without complication, with long-term current use of insulin Anticoagulated Encounter for long-term (current) use of anticoagulants BMI 35.0-35.9,adult Former smoker Personal history of tobacco use, presenting hazards to health Presence of Watchman left atrial appendage closure device documented in this encounter [facility] Work Phone: Evaluation note* Diagnosis Type 2 diabetes mellitus with diabetic neuropathy, with long-term current use of insulin (HCC)- Primary Presence of Watchman left atrial appendage closure device Lumbar spondylosis Lumbosacral spondylosis without myelopathy documented [facility]* Diagnosis Persistent atrial fibrillation (Multi) Atrial fibrillation documented in this encounter [facility] Work Phone: History general Narrative - Reported* Type Description Date Medical History Colitis Medical HistoryCoronary spasmMedical HistoryHTNMedical HistoryPolyps of Colon/HemorrhoidsMedical HistoryDM 2Medical HistoryRheumatoid ArthritisSurgical Historycoronary angiography mild coronary atherosclerosis coronary [id number] [id number] Historyaltered mental state due to metabolic [id number] [employer] Other [employer] general Narrative - Reported* Type Description Date Medical History Colitis Medical HistoryCoronary spasmMedical HistoryHTNMedical HistoryPolyps of Colon/HemorrhoidsMedical HistoryDM 2Medical HistoryRheumatoid ArthritisMedical HistoryanemiaMedical HistoryArthritisMedical Historydiabetes mallitusMedical HistoryhypertensionMedical HistoryobesitySurgical Historycoronary angiography mild coronary atherosclerosis coronary [id number] Historyseptoplasty Dr. [id number] Historyaltered mental state due to metabolic [id number] [employer] Other History general Narrative - Reported* Type Description Date Medical History Colitis Medical HistoryCoronary spasmMedical HistoryHTNMedical HistoryPolyps of Colon/HemorrhoidsMedical HistoryDM 2Medical HistoryRheumatoid ArthritisMedical HistoryanemiaMedical HistoryArthritisMedical Historydiabetes mallitusMedical HistoryhypertensionMedical HistoryobesitySurgical Historycoronary angiography mild coronary atherosclerosis coronary [id number] Historyseptoplasty Dr. [id number] Historyaltered mental state due to metabolic [id number] Historysee above surg. hx. [employer] Other History general Narrative - Reported* Type Description Date Medical History Colitis Medical HistoryCoronary spasmMedical HistoryHTNMedical HistoryPolyps of Colon/HemorrhoidsMedical HistoryDM 2Medical HistoryRheumatoid ArthritisMedical HistoryanemiaMedical HistoryArthritisMedical Historydiabetes mallitusMedical HistoryhypertensionMedical HistoryobesitySurgical Historycoronary angiography mild coronary atherosclerosis coronary [id number] Historyseptoplasty Dr. [id number] [id number] Historyaltered mental state due to metabolic [id number] Historysee above surg. hx. [employer] Other History of Present illness Narrative* Patient is here for follow-up to the management for persistent atrial fibrillation, long-term anticoagulation, obesity, hypertension and hyperlipidemia. Since last time I saw him he reports his been feeling quite well. He denies complaint of chest pain, palpitation, lightheadedness, dizziness or syncope. His only concern is the cost of his Eliquis. He has been taking it once a day. * Assessment * 1. Persistent atrial fibrillation. Remain in normal sinus rhythm * 2. Long-term anticoagulation with Eliquis but has not been compliant due to cost * 3. Obesity * 4. Hypertension controlled * 5. Diabetes mellitus * 6. Hyperlipidemia * 7. Rheumatoid arthritis * Plan * 1. And will do his lab work in the near future and send me copies through his PCP * 2. We discuss and the option for anticoagulation. We will provide him with some samples. Patient was advised to check the arias of Xarelto or Pradaxa if all expensive I told him the only option will be to switch to Coumadin * 3. Patient was counseled regarding losing weight, exercise and dietary modification * 4. Follow-up in 6 months with an EKG [place] [address] DO Work Phone: Hospital Discharge instructions Additional Instructions DISCHARGE INSTRUCTIONS FOR COLONOSCOPY WHAT TO EXPECT: - You may feel full, gassy or cramping after your procedure. In some cases, this may be from a few hours to a day. Walking may help relieve the discomfort. - If you have polyp(s) removed you may note some minor bloody discharge after your first bowel movements. - You should begin to recover from anesthesia within 1 hour of the procedure, however may feel groggy for the next 24 hours. DO's AND DON'Ts: - Call your doctor right away if you have a hard abdomen, severe pain, are passing lots of bright red blood or clots. - Call your doctor if you develop any rashes, hives or difficulty breathing. - Let your doctor know if you have not had a bowel movement by 3 days after your procedure. - If you take 81 mg aspirin for your heart it is safe to resume this medication. - If you take other blood thinner medications your doctor will instruct you when these can safely be resumed. - Do NOT drive for 24 hours. - Do NOT operate machinery such as power tools, Iumn mowers, snow blowers, sewing machines, etc. for 24 hours. - Avoid alcoholic beverages and drugs for allergies, nerves, or sleep. - Do NOT stay alone. Do NOT leave your child unattended. - Do NOT make important personal or business decisions or sign any legal documents. - Eat solid foods and drink liquids in smaller amounts than usual until normal appetite returns. If you should experience an upset stomach, liquids high in sugar content (soda, Sebastián-Aid, non-acid juices) are recommended. - You can resume normal activities tomorrow. FOLLOW UP & RECOMMENDATIONS: -Please call the office and make a follow up appointment to see me as needed. -Notify the doctor if you have any problems. -Repeat colonoscopy in 3 years. -Follow up with PCP. -Office number [phone]. [facility] Work Phone: Reason for referral (narrative)* Consultation (Routine) - AuthorizedSpecialtyDiagnoses / ProceduresReferred By Contact Referred To ContactCardiology Diagnoses Persistent atrial fibrillation (CMS/HCC) Essential hypertension Procedures Follow Up In Cardiology Jose Angel Palmer MD [address] [place] [address] [address], [address] [address] Jose Angel Palmer MD [address] [place] [address] 2, [address] [address] Referral IDStatusReasonStart DateExpiration DateVisits RequestedVisits [id number]/5/202312/4/[id number] * Cardiovascular (Routine) - Pending ReviewSpecialtyDiagnoses / Procedures Referred By ContactReferred To Contact Diagnoses Persistent atrial fibrillation (CMS/HCC) Procedures ECG 12 Lead Jose Angel Palmer MD [address] [place] [address] [address], [address] [address] Referral IDStatusReasonStart DateExpiration DateVisits RequestedVisits [id number] [facility] Work Phone: Refdxy for referral (narrative)* Consultation (Routine) - AuthorizedSpecialtyDiagnoses / ProceduresReferred By Contact Referred To ContactCardiology Diagnoses Persistent atrial fibrillation (Multi) Jose Angel Palmer MD [address] [place] [address] [address], [address] [address] Referral IDStatusReasonStart DateExpiration DateVisits RequestedVisits [id number] Specialty Services Required [facility] Work Phone: reason for referral (narrative)No reason for referral information availableOhiohealth Grady Memorial Hospital Work Phone: reason for visit NarrativeINR Follow up - Procedure InstructionsNortKaleida Health [employer] Other reason for visit NarrativeFCCC Procedure Instructions [facility] [employer] Other reason for visit NarrativeFCCC Warfarin Hold/Procedure [facility] [employer] Other reason for visit Narrative* Consultation (Routine) - AuthorizedSpecialtyDiagnoses / ProceduresReferred By ContactReferred To ContactPhysical Therapy Diagnoses Severe obesity (BMI 35.0-39.9) with comorbidity (CMS/HCC) Weakness of hip Procedures MS OFFICE/OUTPATIENT NEW HIGH MDM 60 MINUTES Haven Sanchez, INDUCTION FURNACE OPERATOR [address] [place] [address] Phone: tel: fax: Jessie Bradley, PT Referral IDStatBreasonStart DateExpiration DateVisits RequestedVisits [id number] Specialty Services Required / [facility] HealthcareReason for visit Narrative* Consultation (Routine) - Authorized SpecialtyDiagnoses / ProceduresReferred By ContactReferred To ContactPhysical Therapy Diagnoses Severe obesity (BMI 35.0-39.9) with comorbidity (CMS/HCC) Weakness of hip Procedures MS OFFICE/OUTPATIENT NEW HIGH MDM 60 MINUTES Haven Sanchez, INDUCTION FURNACE OPERATOR [address] [place] [address] Phone: tel: fax: Jessie Bradley, PT Referral IDStatShahlaStkaushal DateExpiration DateVisits RequestedVisits [id number] Specialty Services Required / [facility] HealthcareReason for visit Narrative* Imaging (Routine) - Authorized SpecialtyDiagnoses / ProceduresReferred By ContactReferred To ContactRadiology Diagnoses Persistent atrial fibrillation (Multi) Anticoagulated Procedures CT pre watchman full contrast Javan Magallanes MD [address] [facility] [address], [address] [place] [address] Phone: tel: fax: Referral IDStatusReasonStart DateExpiration DateVisits RequestedVisits [id number] Perform Procedure [facility] Work Phone: Reason for visit Narrative* Auth/CertSpecialty Diagnoses / ProceduresReferred By ContactReferred To Contact Diagnoses Persistent atrial fibrillation (Multi) Encounter for examination for normal comparison and control in clinical research program Procedures MS PERQ CLSR TCAT L ATR APNDGE W/ENDOCARDIAL IMPLNT LAAO (Left Atrial Appendage Occlusion) Javan Magallanes MD [address] [facility], [address] [address] Phone: tel: fax: [facility] [address] [place] [address] Phone: tel: fax: Referral IDStatusReasonStwilliamsburg DateExpiration DateVisits RequestedVisits [id number] [facility] Work Phone: Reason for visit Narrative* Imaging (Routine) - AuthorizedSpecialtyDiagnoses / ProceduresReferred By ContactReferred To ContactRadiology Diagnoses Persistent atrial fibrillation (Multi) Procedures CT post watchman full contrast Javan Magallanes MD [address] [facility], [address] [address] Phone: tel: fax: Referral IDStatusReasonMoorefield DateExpiration DateVisits RequestedVisits [id number] Perform Procedure [facility] Work Phone: Summary Purpose Family History No Family History Records FoundUnknown Family Member Name Dates Details Family history of diabetes m ellitus: Father(V18.0, Z83.3) Status:ActiveFamily history of hypertension: Father(V17.49, Z82.49) Status:ActiveFamily history of malignant neoplasm: Mother(V16.9, Z80.9) Status:ActiveFamily history of malignant neoplasm of prostate: Brother(V16.42, Z80.42) Status:Active Unknown Family Member Name Dates Details Family history of diabetes m ellitus: Father(V18.0, Z83.3) Status:ActiveFamily history of hypertension: Father(V17.49, Z82.49) Status:ActiveFamily history of malignant neoplasm: Mother(V16.9, Z80.9) Status:ActiveFamily history of malignant neoplasm of prostate: Brother(V16.42, Z80.42) Status:Active Unknown Family Member Name Dates Details Family history of diabetes m ellitus: Father(V18.0, Z83.3) Status:ActiveFamily history of hypertension: Father(V17.49, Z82.49) Status:ActiveFamily history of malignant neoplasm: Mother(V16.9, Z80.9) Status:ActiveFamily history of malignant neoplasm of prostate: Brother(V16.42, Z80.42) Status:Active Relationship Condition Age at Onset Recorded Date/T kobe grandparent Malignant neoplasm of colon Unknown Not SpecifiedMalignant neoplasmUnknownfatherDiabetes mellitusUnknownHypertension UnknownbrotherChronic obstructive pulmonary diseaseUnknownUnknown Family Member Name Dates Details Family history of diabetes m ellitus: Father(V18.0, Z83.3) Status:ActiveFamily history of hypertension: Father(V17.49, Z82.49) Status:ActiveFamily history of malignant neoplasm: Mother(V16.9, Z80.9) Status:ActiveFamily history of malignant neoplasm of prostate: Brother(V16.42, Z80.42) Status:Active Unknown Family Member Name Dates Details Family history of diabetes m ellitus: Father(V18.0, Z83.3) Status:ActiveFamily history of hypertension: Father(V17.49, Z82.49) Status:ActiveFamily history of malignant neoplasm: Mother(V16.9, Z80.9) Status:ActiveFamily history of malignant neoplasm of prostate: Brother(V16.42, Z80.42) Status:Active Unknown Family Member Name Dates Details Family history of malignant neoplasm of prostate: Brother(V16.42, Z80.42) Status:ActiveFamily history of malignant neoplasm: Mother(V16.9, Z80.9) Status:ActiveFamily history of hypertension: Father(V17.49, Z82.49) Status:ActiveFamily history of diabetes mellitus: Father(V18.0, Z83.3) Status:Active Unknown Family Member Name Dates Details Family history of diabetes m ellitus: Father(V18.0, Z83.3) Status:ActiveFamily history of hypertension: Father(V17.49, Z82.49) Status:ActiveFamily history of malignant neoplasm: Mother(V16.9, Z80.9) Status:ActiveFamily history of malignant neoplasm of prostate: Brother(V16.42, Z80.42) Status:Active Unknown Family Member Name Dates Details Family history of malignant neoplasm of prostate: Brother(V16.42, Z80.42) Status:ActiveFamily history of malignant neoplasm: Mother(V16.9, Z80.9) Status:ActiveFamily history of hypertension: Father(V17.49, Z82.49) Status:ActiveFamily history of diabetes mellitus: Father(V18.0, Z83.3) Status:Active Relationship Condition Age at Onset Recorded Date/T kobe grandparent Malignant neoplasm of colon Unknown Not SpecifiedMalignant neoplasmUnknownfatherDiabetes mellitusUnknownHypertension UnknownbrotherChronic obstructive pulmonary diseaseUnknownbrotherMalignant neoplasm of prostateUnknown Relationship Condition Age at Onset Recorded Date/T kobe grandparent Malignant neoplasm of colon Unknown Not SpecifiedMalignant neoplasmUnknownfatherDiabetes mellitusUnknownHypertension UnknownbrotherChronic obstructive pulmonary diseaseUnknownbrotherMalignant neoplasm of prostateUnknownfatherDeceasedUnknownNot SpecifiedDeceasedUnknown Relationship Condition Age at Onset Recorded Date/T kobe grandparent Malignant neoplasm of colon Unknown motherMalignant neoplasmUnknownfatherDiabetes mellitusUnknownHypertensionUnknown brotherChronic obstructive pulmonary diseaseUnknownbrotherMalignant neoplasm of prostateUnknownfatherDeceasedUnknownmotherDeceasedUnknown Relationship Condition Age at Onset Recorded Date/T kobe grandparent Malignant neoplasm of colon Unknown motherMalignant neoplasmUnknownDeceasedUnknownfatherDiabetes mellitusUnknown HypertensionUnknownbrotherChronic obstructive pulmonary diseaseUnknownbrother Malignant neoplasm of prostateUnknown Relationship Condition Age at Onset Recorded Date/T kobe grandparent Malignant neoplasm of colon Unknown motherDeceasedUnknownMalignant neoplasm of stomachUnknownfatherDiabetes mellitus UnknownDeceasedUnknownHypertensionUnknownbrotherChronic obstructive pulmonary diseaseUnknownbrotherMalignant neoplasm of prostateUnknown Advance Directives No Advanced Directives Records Found Advance Directive Response Recorded Date/ Time Advance Directives No December 28, 2016 8:20am Advance Directive Response Recorded Date/ Time Advance Directives No December 28, 2016 7:20am Date ActivatedDate InactivatedComments09/26/2024 10:55 AMQuestionAnswerComments Plan of Care:* Code Status Discussion Completed Decision Maker:* Patient Date ActivatedDate InactivatedComments09/26/2024 7:58 AM09/26/2024 10:55 AMQuestion AnswerCommentsPlan of Care:* Code Status Discussion Completed Decision Maker:* Patient Advance Directive Response Recorded Date/ Time Advance Directives No September 12 10:42am Chief Complaint NEREYDA BARKER is being seen for a 6 month follow-up of.* Patient in the office today for an EKG per Dr. Jose Angel Palmer MD due to new start of Propafenone . He is also on Warfarin and is theraputic. He states that he is still out of rhythm and that a week after starting the Propafenone his bilateral arms both turned red and itching. He had an appt withDermatology for something and had them look at his arms and they advised him it was a medication allergy rash. * Reviewed with Mercedes Perez RN * Reviewed with Peggy Wharton INDUCTION FURNACE OPERATOR in absence of Dr. Jose Angel Palmer MD * TO Dr. Jose Angel Palmer MD to review upon return Chief Complaint and Reason for Visit Chief Complaint M05.79 M15.0 Z79.899 Coumadin Management Chief Complaint Coumadin Management M54.12 Chief Complaint Coumadin Management M54.12 R07.9 R06.02 Chief Complaint M54.12 R07.9 R06.02 M05.79 M15.0 Z79.899 Coumadin Management carpal tunnel Chief Complaint carpal tunnel carpal tunnel Coumadin Management Chief Complaint M05.79 M15.0 Z79.899 Coumadin Management afib Chief Complaint afib M05.79 M15.0 Z79.899 groin masses Coumadin Management groin masses Chief Complaint afib M05.79 M15.0 Z79.899 groin masses groin masses Coumadin Management Chief Complaint groin masses groin masses m05.79 m15.0 z79.899 Coumadin Management INR Follow UpReason for VisitAfib Chief Complaint groin masses m05.79 m15.0 z79.899 Coumadin Management INR Follow Up INR Follow Up INR Follow UpReason for VisitAfib Afib Afib Chief Complaint m05.79 m15.0 z79.899 Coumadin Management INR Follow Up INR Follow Up INR Follow Up Weekly INR for Cardioversion 4/10Reason for VisitAfib Afib Afib Afib Chief Complaint m05.79 m15.0 z79.899 Coumadin Management INR Follow Up INR Follow Up INR Follow Up Weekly INR for Cardioversion 4/10 Weekly INR for Cardioversion 4/10Reason for VisitAfib Afib Afib Afib Afib Chief Complaint m05.79 m15.0 z79.899 Coumadin Management INR Follow Up INR Follow Up INR Follow Up Weekly INR for Cardioversion 4/10 Weekly INR for Cardioversion 4/10 See orderReason for VisitAfib Afib Afib Afib Afib Chief Complaint m05.79 m15.0 z79.899 Coumadin Management INR Follow Up INR Follow Up INR Follow Up Weekly INR for Cardioversion 4/10 Weekly INR for Cardioversion 4/10 See order Persistent Atrial FibrillationReason for VisitAfib Afib Afib Afib Afib Atrial fibrillation, persistent Diabetes Rheumatoid arthritis Chief Complaint Coumadin Management INR Follow Up INR Follow Up INR Follow Up Weekly INR for Cardioversion 4/10 Weekly INR for Cardioversion 4/10 See order Persistent Atrial Fibrillation INR Follow UpReason for VisitAfib Afib Afib Afib Afib Atrial fibrillation, persistent Diabetes Rheumatoid arthritis Afib Chief Complaint INR Follow Up INR Follow Up Weekly INR for Cardioversion 05/31 Weekly INR for Cardioversion 05/31 See order Persistent Atrial Fibrillation INR Follow Up INR Follow Up INR Follow Up pre ablation INRReason for VisitAfib Afib Afib Afib Atrial fibrillation, persistent Diabetes Rheumatoid arthritis Afib Afib Afib Chief Complaint INR Follow Up INR Follow Up Weekly INR for Cardioversion 05/31 Weekly INR for Cardioversion 05/31 See order Persistent Atrial Fibrillation INR Follow Up INR Follow Up INR Follow Up pre ablation INR INR Follow Up See WL messageReason for VisitAfib Afib Afib Afib Atrial fibrillation, persistent Diabetes Rheumatoid arthritis Afib Afib Afib Afib Chief Complaint INR Follow Up Weekly INR for Cardioversion 05/31 Weekly INR for Cardioversion 05/31 See order Persistent Atrial Fibrillation INR Follow Up INR Follow Up INR Follow Up pre ablation INR INR Follow Up See WL message INR Follow UpReason for VisitAfib Afib Afib Atrial fibrillation, persistent Diabetes Rheumatoid arthritis Afib Afib Afib Afib Afib Chief Complaint INR Follow Up Weekly INR for Cardioversion 05/31 Weekly INR for Cardioversion 05/31 See order Persistent Atrial Fibrillation INR Follow Up INR Follow Up INR Follow Up pre ablation INR INR Follow Up See WL message INR Follow Up INR Follow UpReason for VisitAfib Afib Afib Atrial fibrillation, persistent Diabetes Rheumatoid arthritis Afib Afib Afib Afib Afib Afib Chief Complaint Persistent Atrial Fi brillation INR Follow Up INR Follow Up INR Follow Up pre ablation INR INR Follow Up See WL message INR Follow Up INR Follow UpReason for VisitAtrial fibrillation, persistent Diabetes Rheumatoid arthritis Afib Afib Afib Afib Afib Afib Chief Complaint Persistent Atrial Fi brillation INR Follow Up INR Follow Up INR Follow Up pre ablation INR INR Follow Up See WL message INR Follow Up INR Follow Up INR Follow UpReason for VisitAtrial fibrillation, persistent Diabetes Rheumatoid arthritis Afib Afib Afib Afib Afib Afib Afib Chief Complaint INR Follow Up INR Follow Up pre ablation INR INR Follow Up See WL message INR Follow Up INR Follow Up M05.79 M15.0 Z79.899 INR Follow Up INR Follow UpReason for VisitAfib Afib Afib Afib Afib Afib Afib Chief Complaint INR Follow Up INR Follow Up M05.79 M15.0 Z79.899 INR Follow Up INR Follow UpReason for VisitAfib Afib Afib Afib Chief Complaint INR Follow Up M05.79 M15.0 Z79.899 INR Follow Up INR Follow Up M05.79 M15.0 Z79.899 INR f/u pre procedureReason for VisitAfib Afib Afib Afib Chief Complaint Admit Date M05.79 M15.0 Z79.899 October 25, 2023 10:59am INR f/u pre procedure October 26 10:01am Hx of colon polyps November 03, 2023 7:33am INR f/u November 09, 2023 7:26am Amb Documentation November 09, 2023 1:40pm INR f/u November 24, 2023 11 :20am INR f/u December 15, 2023 1 0:23am INR Follow UP January 05, 2024 10:16am Reason for Visit Admit Date Afib October 27, 2023 10:01am Afib November 09, 2023 7:26am Afib November 24, 2023 11 :20am Afib December 15, 2023 1 0:23am Afib January 05, 2024 10:16am Chief Complaint Admit Date INR f/u December 15, 2023 1 0:23am INR Follow UP January 05, 2024 10:16am M05.79 M15.0 Z79.899 January 17, 2024 10:19am INR f/u January 30, 2024 1 0:25am INR f/u March 01, 2024 10 :49am Reason for Visit Admit Date Afib December 15, 2023 1 0:23am Afib January 05, 2024 10:16am Afib January 30, 2024 1 0:25am Afib March 01, 2024 10 :49am Chief Complaint Admit Date INR Follow UP January 05, 2024 10:16am M05.79 M15.0 Z79.899 January 17, 2024 10:19am INR f/u January 30, 2024 1 0:25am INR f/u March 01, 2024 10 :49am INR Follow Up March 29, 2024 1 1:00am Reason for Visit Admit Date Afib January 05, 2024 10:16am Afib January 30, 2024 1 0:25am Afib March 01, 2024 10 :49am Afib March 29, 2024 1 1:00am Chief Complaint Admit Date M05.79 M15.0 Z79.899 January 17, 2024 10:19am INR f/u January 30, 2024 1 0:25am INR f/u March 01, 2024 10 :49am INR Follow Up March 29, 2024 1 1:00am INR f/u April 09, 2024 2:27pm Reason for Visit Admit Date Afib January 30, 2024 1 0:25am Afib March 01, 2024 10 :49am Afib March 29, 2024 1 1:00am Afib April 09, 2024 2:27pm Chief Complaint Admit Date INR f/u January 30, 2024 1 0:25am INR f/u March 01, 2024 10 :49am INR Follow Up March 29, 2024 1 1:00am INR f/u April 09, 2024 2:27pm M05.79, M15.0, Z79.899 April 19 9:45am Chief Complaint Admit Date INR f/u March 01, 2024 10 :49am INR Follow Up March 29, 2024 1 1:00am INR f/u April 09, 2024 2:27pm M05.79, M15.0, Z79.899 April 19 9:45am INR f/u May 14, 2024 1:4 1pm Reason for Visit Admit Date Afib March 01, 2024 10 :49am Afib March 29, 2024 1 1:00am Afib April 09, 2024 2:27pm Afib May 14, 2024 1:4 1pm Chief Complaint Admit Date INR Follow Up March 29, 2024 1 1:00am INR f/u April 09, 2024 2:27pm M05.79, M15.0, Z79.899 April 19 9:45am INR f/u May 14, 2024 1:4 1pm INR f/u June 11, 2024 10: 17am Reason for Visit Admit Date Afib March 29, 2024 1 1:00am Afib April 09, 2024 2:27pm Afib May 14, 2024 1:4 1pm Afib June 11, 2024 10: 17am Chief Complaint Admit Date INR f/u May 14, 2024 1:4 1pm INR f/u June 11, 2024 10: 17am INR f/u July 10, 2024 10:23 am diarrhea July 18, 2024 8:53a m Reason for Visit Admit Date Afib May 14, 2024 1:4 1pm Afib June 11, 2024 10: 17am Afib July 10, 2024 10:23 am Reason for Visit Admit Date Afib May 14, 2024 1:4 1pm Afib June 11, 2024 10: 17am Afib July 10, 2024 10:23 am Chronic anticoagulation July 18, 2024 8 :53am Melena July 18, 2024 8:53a m Chief Complaint Admit Date INR f/u May 14, 2024 1:4 1pm INR f/u June 11, 2024 10: 17am INR f/u July 10, 2024 10:23 am diarrhea July 18, 2024 8:53a m K92.1 July 18, 2024 12:56 pm INR f/u July 24, 2024 9:04a m Reason for Visit Admit Date Afib May 14, 2024 1:4 1pm Afib June 11, 2024 10: 17am Afib July 10, 2024 10:23 am Chronic anticoagulation July 18, 2024 8 :53am Melena July 18, 2024 8:53a m Afib July 24, 2024 9:04a m Chief Complaint Admit Date INR f/u June 11, 2024 10: 17am INR f/u July 10, 2024 10:23 am diarrhea July 18, 2024 8:53a m K92.1 July 18, 2024 12:56 pm INR f/u July 24, 2024 9:04a m black tarry stool August 06, 2024 12:2 0pm black tarry stool August 06, 2024 1:14 pm INR f/u post procedure August 13, 2024 1 2:39pm Z79.899 M05.79 M15.0 August 15, 2024 9:3 9am Reason for Visit Admit Date Afib June 11, 2024 10: 17am Afib July 10, 2024 10:23 am Chronic anticoagulation July 18, 2024 8 :53am Melena July 18, 2024 8:53a m Afib July 24, 2024 9:04a m Afib August 13, 2024 12:3 9pm Chief Complaint Admit Date INR f/u June 11, 2024 10: 17am INR f/u July 10, 2024 10:23 am diarrhea July 18, 2024 8:53a m K92.1 July 18, 2024 12:56 pm INR f/u July 24, 2024 9:04a m black tarry stool August 06, 2024 12:2 0pm black tarry stool August 06, 2024 1:14 pm INR f/u post procedure August 13, 2024 1 2:39pm Z79.899 M05.79 M15.0 August 15, 2024 9:3 9am INR f/u August 29, 2024 8:17a m Reason for Visit Admit Date Afib June 11, 2024 10: 17am Afib July 10, 2024 10:23 am Chronic anticoagulation July 18, 2024 8 :53am Melena July 18, 2024 8:53a m Afib July 24, 2024 9:04a m Afib August 13, 2024 12:3 9pm Afib August 29, 2024 8:17a m Chief Complaint Admit Date INR f/u July 10, 2024 10:23 am diarrhea July 18, 2024 8:53a m K92.1 July 18, 2024 12:56 pm INR f/u July 24, 2024 9:04a m black tarry stool August 06, 2024 12:2 0pm black tarry stool August 06, 2024 1:14 pm INR f/u post procedure August 13, 2024 1 2:39pm Z79.899 M05.79 M15.0 August 15, 2024 9:3 9am INR f/u August 29, 2024 8:17a m INR f/u September 10, 2024 9:50 am Reason for Visit Admit Date Afib July 10, 2024 10:23 am Chronic anticoagulation July 18, 2024 8 :53am Melena July 18, 2024 8:53a m Afib July 24, 2024 9:04a m Afib August 13, 2024 12:3 9pm Afib August 29, 2024 8:17a m Afib September 10, 2024 9:50 am Chief Complaint Admit Date INR f/u July 10, 2024 10:23 am diarrhea July 18, 2024 8:53a m K92.1 July 18, 2024 12:56 pm INR f/u July 24, 2024 9:04a m black tarry stool August 06, 2024 12:2 0pm black tarry stool August 06, 2024 1:14 pm INR f/u post procedure August 13, 2024 1 2:39pm Z79.899 M05.79 M15.0 August 15, 2024 9:3 9am INR f/u August 29, 2024 8:17a m INR f/u September 10, 2024 9:50 am Ref: Ирина SHORE - Spondylosis Lumbar October 03, 2024 9:17am Chief Complaint Admit Date INR f/u July 10, 2024 10:23 am diarrhea July 18, 2024 8:53a m K92.1 July 18, 2024 12:56 pm INR f/u July 24, 2024 9:04a m black tarry stool August 06, 2024 12:2 0pm black tarry stool August 06, 2024 1:14 pm INR f/u post procedure August 13, 2024 1 2:39pm Z79.899 M05.79 M15.0 August 15, 2024 9:3 9am INR f/u August 29, 2024 8:17a m INR f/u September 10, 2024 9:50 am Ref: Ирина SHORE - Spondylosis Lumbar October 03, 2024 9:17am INR f/u see [facility] October 04, 2024 7: 35am Reason for Visit Admit Date Afib July 10, 2024 10:23 am Chronic anticoagulation July 18, 2024 8 :53am Melena July 18, 2024 8:53a m Afib July 24, 2024 9:04a m Afib August 13, 2024 12:3 9pm Afib August 29, 2024 8:17a m Afib September 10, 2024 9:50 am Arthritis of lumbosacral spine October 032024 9:17am Arthritis of sacroiliac joint September 9:17am Chronic pain October 03, 2024 9: 17am Afib October 04, 2024 7: 35am Chief Complaint Admit Date diarrhea July 18, 2024 8:53a m K92.1 July 18, 2024 12:56 pm INR f/u July 24, 2024 9:04a m black tarry stool August 06, 2024 12:2 0pm black tarry stool August 06, 2024 1:14 pm INR f/u post procedure August 13, 2024 1 2:39pm Z79.899 M05.79 M15.0 August 15, 2024 9:3 9am INR f/u August 29, 2024 8:17a m INR f/u September 10, 2024 9:50 am Ref: Ирина Elliott PA - Spondylosis Lumbar October 03, 2024 9:17am INR f/u see [facility] October 04, 2024 7: 35am LUMBAR PAIN October 16, 2024 7: 35am Reason for Visit Admit Date Chronic anticoagulation July 18, 2024 8 :53am Melena July 18, 2024 8:53a m Afib July 24, 2024 9:04a m Afib August 13, 2024 12:3 9pm Afib August 29, 2024 8:17a m Afib September 10, 2024 9:50 am Arthritis of lumbosacral spine October 032024 9:17am Arthritis of sacroiliac joint September 9:17am Chronic pain October 03, 2024 9: 17am Afib October 04, 2024 7: 35am Chief Complaint Admit Date INR f/u July 24, 2024 9:04a m black tarry stool August 06, 2024 12:2 0pm black tarry stool August 06, 2024 1:14 pm INR f/u post procedure August 13, 2024 1 2:39pm Z79.899 M05.79 M15.0 August 15, 2024 9:3 9am INR f/u August 29, 2024 8:17a m INR f/u September 10, 2024 9:50 am Ref: Ирина SHORE - Spondylosis Lumbar October 03, 2024 9:17am INR f/u see [facility] October 04, 2024 7: 35am LUMBAR PAIN October 16, 2024 7: 35am INR f/u October 18, 2024 8: 07am Reason for Visit Admit Date Afib July 24, 2024 9:04a m Afib August 13, 2024 12:3 9pm Afib August 29, 2024 8:17a m Afib September 10, 2024 9:50 am Arthritis of lumbosacral spine October 032024 9:17am Arthritis of sacroiliac joint September 9:17am Chronic pain October 03, 2024 9: 17am Afib October 04, 2024 7: 35am Afib October 18, 2024 8: 07am Chief Complaint Admit Date black tarry stool August 06, 2024 12:2 0pm black tarry stool August 06, 2024 1:14 pm INR f/u post procedure August 13, 2024 1 2:39pm Z79.899 M05.79 M15.0 August 15, 2024 9:3 9am INR f/u August 29, 2024 8:17a m INR f/u September 10, 2024 9:50 am Ref: Ирина SHORE - Spondylosis Lumbar October 03, 2024 9:17am INR f/u see [facility] October 04, 2024 7: 35am LUMBAR PAIN October 16, 2024 7: 35am INR f/u October 18, 2024 8: 07am F/U CHARLES SI JOINT INJECTIONS October 9:34am Reason for Visit Admit Date Afib August 13, 2024 12:3 9pm Afib August 29, 2024 8:17a m Afib September 10, 2024 9:50 am Arthritis of lumbosacral spine October 032024 9:17am Arthritis of sacroiliac joint September 9:17am Chronic pain October 03, 2024 9: 17am Afib October 04, 2024 7: 35am Afib October 18, 2024 8: 07am Arthritis of lumbosacral spine October 24, 2024 9:34am Arthritis of sacroiliac joint October 24, 2024 9:34am Chronic pain October 24, 2024 9:34am Chief Complaint Admit Date INR f/u August 29, 2024 8:17a m INR f/u September 10, 2024 9:50 am Ref: Ирина Elliott PA - Spondylosis Lumbar October 03, 2024 9:17am INR f/u see [facility] October 04, 2024 7: 35am LUMBAR PAIN October 16, 2024 7: 35am INR f/u October 18, 2024 8: 07am F/U CHARLES SI JOINT INJECTIONS October 9:34am INR f/u November 05, 2024 11:29am INR f/u November 27, 2024 9: 56am Reason for Visit Admit Date Afib August 29, 2024 8:17a m Afib September 10, 2024 9:50 am Arthritis of lumbosacral spine October 032024 9:17am Arthritis of sacroiliac joint September 9:17am Chronic pain October 03, 2024 9: 17am Afib October 04, 2024 7: 35am Afib October 18, 2024 8: 07am Arthritis of lumbosacral spine October 24, 2024 9:34am Arthritis of sacroiliac joint October 24, 2024 9:34am Chronic pain October 24, 2024 9:34am Afib November 05, 2024 11:29am Afib November 27, 2024 9: 56am Reason for Referral SpecialtyDiagnoses / ProceduresReferred By ContactReferred To ContactCardiology Diagnoses Persistent atrial fibrillation (Multi) Procedures Holter Or Event Bobtailer Jose Angel Palmer MD [address] [address] Referral IDStatusReasonStart DateExpiration DateVisits RequestedVisits [id number] /[id number] / ProceduresReferred By ContactReferred To ContactCardiology Diagnoses Persistent atrial fibrillation (Multi) Procedures Follow Up In Cardiology Jose Angel Palmer MD [address] [facility] 2, [address] [place] [address] Jose Angel Palmer MD [address] [facility], [address] [place] [address] Referral IDStatusReasonStwilliamsburg DateExpiration DateVisits RequestedVisits [id number]/19/20246/[id number] / Procedures Referred By ContactReferred To Contact Diagnoses Persistent atrial fibrillation (Multi) Procedures ECG 12 Lead Gunner Colorado MD [facility] [place] [address] Referral IDStatusReasonMoorefield DateExpiration DateVisits RequestedVisits [id number]/1/20245/ Reason 04/06/22 @ 2:30pm EMG/NCV LUE Diagnosis 1 Left carpal tunnel s yndrome (G56.02) Referral Organization [facility] Referring Provider First Name Eric Referring Provider Last Name Viridiana Referring Provider Specialty Neurologica l Surgery Referred Organization [facility] Referred Provider Jadiel Lilly Referred Address [address] [place] [phone] Referred Provider Specialty Neurology Referral Priority Routine Referral Appointment Date 2022-04-06 General Notes Dali Verdugo 023 08:22:32 AM >Received today. [facility] request us to fill out their form and attach to Referral and send it to them and they will call patient to schedule. Referral was sent P2P Berna Verdugon 04/02/2022 10:32:35 AM >Spoke with Kathy at [facility] and patient has been scheduled for 04/06/22 @ 2:30pm Berna Verdugon 04/07/2022 03:40:15 PM >EMG Report in chart Additional Source Comments (unrecognized sect ion and content) No Status Records FoundNo Status Records FoundNo Status Records FoundNo Status Records FoundNo Status Records FoundNo Status Records FoundNo Status Records FoundNo Status Records FoundNo Status Records FoundNo Status Records FoundNo Status Records FoundNo Status Records Found INFORMATION SOURCE (unrecogn ized section and content) DATE CREATED AUTHOR 08/16/2017 [facility] DATE CREATED AUTHOR AUTHOR'S ORGANIZ ATION 11/02/2017 [facility] DATE CREATED AUTHOR AUTHOR'S ORGANIZ ATION 11/28/2018 [facility] DATE CREATED AUTHOR AUTHOR'S ORGANIZ ATION 10/10/2020 [facility] DATE CREATED AUTHOR AUTHOR'S ORGANIZ ATION 03/08/2022 [facility] [employer] DATE CREATED AUTHOR AUTHOR'S ORGANIZ ATION 10/16/2022 [facility] DATE CREATED AUTHOR AUTHOR'S ORGANIZ ATION 07/15/2023 [facility] DATE CREATED AUTHOR AUTHOR'S ORGANIZ ATION 09/28/2024 [facility] DATE CREATED AUTHOR AUTHOR'S ORGANIZ ATION 10/20/2024 [facility] EPIC DATE CREATED AUTHOR AUTHOR'S ORGANIZ ATION 10/23/2024 [facility] DATE CREATED AUTHOR AUTHOR'S ORGANIZ ATION 12/08/2024 [facility] DATE CREATED AUTHOR AUTHOR'S ORGANIZ ATION 12/08/2024 [facility] REASON FOR VISIT (unrecogniz ed section and content) UjmcklDjfsxjgkHvsnpn-nzY-bpp with ekgSpecialtyDiagnoses / ProceduresReferred By ContactReferred To Contact Diagnoses Persistent atrial fibrillation (CMS/HCC) Procedures ECG 12 Lead Jose Angel Palmer MD [address] [facility] 2, [address] [address] Referral IDStatusReasonStart DateExpiration DateVisits RequestedVisits [id number] [id number] FibrillationFollow-upEKG after drug load / DCCSpecialtyDiagnoses / Procedures Referred By ContactReferred To Contact Diagnoses Persistent atrial fibrillation (Multi) Procedures ECG 12 Lead Jose Angel Palmer MD [address] [facility], [address] [place] [address] Referral IDStatusReasonStart DateExpiration DateVisits RequestedVisits [id number]/28/20243/739093RuvdgnUoeaqfivDogkaz Fibrillation SpecialtyDiagnoses / ProceduresReferred By ContactReferred To ContactCardiology Diagnoses Persistent atrial fibrillation (Multi) Jose Angel Palmer MD [address], [address] [place] [address] Referral IDStatusReasonStwilliams[place] DateExpiration DateVisits RequestedVisits [id number] Specialty Services Required [id number]-wsUxltrkrggGnojcljnu / Procedures Referred By ContactReferred To Contact Diagnoses Persistent atrial fibrillation (Multi) Procedures ECG 12 Lead Gunner Colorado MD [address] [id number] Referral IDStatusReasonStart DateExpiration DateVisits RequestedVisits [id number]/18/20246/992234IwoeijEfomzulpHxgwmq-qm7 months follow up after drug load, DCCSpecialtyDiagnoses / ProceduresReferred By Contact Referred To ContactCardiology Diagnoses Persistent atrial fibrillation (Multi) Procedures Follow Up In Cardiology Jose Angel Palmer MD [address], [address] [place] [phone] Jose Angel Palmer MD [address], [address] [place] [address] Referral IDStatusReasonStwilli[place] DateExpiration DateVisits RequestedVisits [id number]/28/20243/011965MrespqQwgsmnxvAodnfi-py8w SpecialtyDiagnoses / ProceduresReferred By ContactReferred To ContactCardiology Diagnoses Persistent atrial fibrillation (Multi) Procedures Follow Up In Cardiology Jose Angel Palmer MD [address] [facility] 2, [facility] [address] [place] [address] Phone: tel: fax: Jose Angel Palmer MD [address] [facility] 2, [facility] [address] [place] [address] Phone: tel: fax: Referral IDStatusReasonStart DateExpiration DateVisits RequestedVisits [id number]/19/20246/288264EkawloFwiwpnmyFtufcs-oyTannltcc IDStatusReasonStart DateExpiration DateVisits RequestedVisits [id number] Authorized/[id number] / ProceduresReferred By Contact Referred To ContactPhysical Therapy Diagnoses Chronic neck pain Procedures [place] OFFICE/OUTPATIENT [facility] 60 MINUTES Stephanie Morales, INDUCTION FURNACE OPERATOR [address] [facility] [address] [place] [address] [facility] [address] [place] [address] Referral IDStatusReasonStwilli[place] DateExpiration DateVisits RequestedVisits [id number] Specialty Services Required /[id number] Month Follow UpReview lab drawn 02/24/2024, HbA1c = 6.5. Pt has not been on Atorvastatin and is not sure if he should be. This is listed on his med list but has no prescription.ReasonCommentsHip PainPt has right hip pain worse over the past month. Denies any known injury. He has not fallen, using a cane for ambulation. Taking Tylenol Arthritis, which does not help. He has attended [facility] and a chiropractor. He felt this made the pain worse.ReasonCommentsSuspicious Skin LesionReasonCommentsFollow-up6 month Follow up for Atrial FibrillationSpecialtyDiagnoses / ProceduresReferred By Contact Referred To ContactCardiology Diagnoses Persistent atrial fibrillation (Multi) Procedures Follow Up In Cardiology Jose Angel Palmer MD [address] [facility] [address], [address] [place] [address] Phone: tel: fax: Jose Angel Palmer MD [address] [facility] 2, [address] [place] [id number] Phone: tel: fax: Referral IDStatusReasonStart DateExpiration DateVisits RequestedVisits [id number]/22/202411/22/780143IrosbwCoaheuasSoyocg-kn7 month follow up Persistent atrial fibrillation (Multi)SpecialtyDiagnoses / Procedures Referred By ContactReferred To Contact Diagnoses Persistent atrial fibrillation (Multi) Procedures ECG 12 Lead Gunner Colorado MD [address] [facility], [address] [address] Phone: tel: fax: Referral IDStatusAnjanaasonStart DateExpiration DateVisits RequestedVisits [id number]/24/20256/24/919057AknpcsOpokdqumGcvrcx-dnCmahirk here per Dr. Colorado to discuss Watchman procedure.SpecialtyDiagnoses / ProceduresReferred By ContactReferred To ContactCardiology Diagnoses Persistent atrial fibrillation (Multi) Gunner Colorado MD [address] [facility], [address] [place] [address] Phone: tel: fax: Javan Magallanes MD [address] [facility], [address] [place] [address] Phone: tel: fax: Referral IDStatusReasonStart DateExpiration DateVisits RequestedVisits [id number] Specialty Services Required /[id number] Month Follow Up of Chronic ConditionsReview lab drawn 09/03/2024. EGD performed 08/06/2024. [facility]24 for persistent AFIB. Scheduled for CT 09/14.Medicare Annual Wellness Visit SubsequentReasonCommentsFollow-upStatus post watchmanSpecialtyDiagnoses / ProceduresReferred By ContactReferred To Contact Diagnoses Persistent atrial fibrillation (Multi) Typical atrial flutter (Multi) Procedures ECG 12 Lead Jose Angel Palmer MD [address] [facility] 2, [place] [id number] Phone: tel: fax: Referral IDStatusReasonStart DateExpiration DateVisits RequestedVisits [id number]/19/20258/802375KuvplmPqvuvumg3 Week Follow Up Watchman Device placement 09/26/2024 @ EMHDiscuss MRIReview results dated 09/17/2024. He had injections 10/16/[address] Hatfield. Care Teams (unrecognized sec tion and content) Team Status: Active Member Role Status Radha Rodríguez MD Primary Care Provider Active Team Status: Inactive Member Role Status Radha Rodríguez MD Primary Care Provider Active St art: February 03, 2023 End: February 03Sophie Hernandez ProviderActiveStart: February 03, 2023 End: February 03, 2023 Team Status: Inactive Member Role Status Radha Rodríguez MD Primary Care Provider Active St art: February 17, 2023 End: February 17Sophie Hernandez ProviderActiveStart: February 17, 2023 End: February 17, 2023 Team Status: Inactive Member Role Status Radha Rodríguez MD Primary Care Provider Active St art: March 08, 2023 End: March 08, 2023Sophie Vazquez ProviderActiveStart: March 08, 2023 End: March 08, 2023 Team Status: Active Member Role Status Radha Rodríguez MD Primary Care Provider Active St art: March 21, 2023 Morefugio Palmer MDAttending ProviderActiveStart: March 21, 2023 Team Status: Inactive Member Role Status Radha Rodríguez MD Primary Care Provider Active St art: April 06, 2023 End: April 06awn Fitt , RPHActiveStart: April 06, 2023 End: April 06, 2023Morefugio Palmer , MDReferring ProviderActiveStart: April 06, 2023 End: April 06, 2023McEtelvina Bourgeois , PharmDAttending ProviderActiveStart: April 06, 2023 End: April 06, 2023 Team Status: Active Member Role Status Radha Rodríguez MD Primary Care Provider Active Sophie Retana ProviderActive Team Status: Inactive Member Role Status Radha Rodríguez MD Primary Care Provider, Attending Prov ider Active Team Status: Inactive Member Role Status Radha Rodríguez MD Primary Care Provider Active Sophie Mosquera ProviderActive Team Status: Inactive Member Role Status Radha Rodríguez MD Primary Care Provider Active Sophie Perkins ProviderActive Team Status: Inactive Member Role Status Radha Rodríguez MD Primary Care Provider, Attending Prov ider Active Fe Goetz ProviderActive Team Status: Inactive Member Role Status Radha Rodríguez MD Primary Care Provider Active Analilia Vera NP-CAttending ProviderActive Team Status: Inactive Member Role Status Radha Rodríguez MD Primary Care Provider Active Sophie Vazquez ProviderActive Team Status: Inactive Member Role Status Radha Rodríguez MD Primary Care Provider Active Sophie Retana ProviderActiveTeam MemberRelationshipSpecialty Start DateEnd Richard Barker MD [address] [place] [id number] [facility] - General10/09/20 Team Status: Inactive Member Role Status Radha Rodríguez MD Primary Care Provider Active Sophie Arshad ProviderActive Team Status: Inactive Member Role Status Radha Rodríguez MD Primary Care Provider Active St art: March 21, 2023 End: March 21, 2023Mourhaf Traboulssi , MDAttending ProviderActiveStart: March 21, 2023 End: March 21, 2023 Team Status: Inactive Member Role Status Radha Rodríguez MD Primary Care Provider Active St art: April 27, 2023 End: April 27, 2023Mourhaf Traboulssi , MDReferring ProviderActiveStart: April 27, 2023 End: April 27, 2023McKenna Sanner , PharmDAttending ProviderActiveStart: April 27, 2023 End: April 27, 2023 Team Status: Inactive Member Role Status Radha Rodríguez MD Primary Care Provider Active St art: May 18, 2023 End: May 18, 2023Mourhaf Traboulssi , MDReferring ProviderActiveStart: May 18, 2023 End: May 18, 2023McKenna Sanner , PharmDAttending ProviderActiveStart: May 18, 2023 End: May 18, 2023 Team Status: Inactive Member Role Status Radha Rodríguez MD Primary Care Provider Active St art: May 24, 2023 End: May 23awn Fitt , RPHActiveStart: May 24, 2023 End: May 24, 2023Mourhaf Traboulssi , MDReferring ProviderActiveStart: May 24, 2023 End: May 24, 2023Jacqueline Austin , RPHAttending ProviderActiveStart: May 24, 2023 End: May 24, 2023 Team Status: Inactive Member Role Status Radha Rodríguez MD Primary Care Provider Active St art: May 31, 2023 End: May 30awn Fitt , RPHActiveStart: May 31, 2023 End: May 31, 2023Mourhaf Traboulssi , MDReferring ProviderActiveStart: May 31, 2023 End: May 31, 2023Jacqueline Austin , RPHAttending ProviderActiveStart: May 31, 2023 End: May 31, 2023 Team Status: Inactive Member Role Status Radha Rodríguez MD Primary Care Provider Active St art: May 31, 2023 End: May 31, 2023Matamiko Belle , MDAttending ProviderActiveStart: May 31, 2023 End: May 31, 2023 Team Status: Inactive Member Role Status Dates Richard Rodríguez MD Primary Care Provider Active St art: June 01, 2023 End: June 03, 2023Morefugio Palmer MDAdmit Provider, Attending Provider, Referring ProviderActiveStart: June 01, 2023 End: June 03, 2023 Team Status: Inactive Member Role Status Dates Richard Rodríguez MD Primary Care Provider Active St art: June 08, 2023 End: June 07awcarey Hit , RPHActiveStart: June 08, 2023 End: June 08, 2023Morefugio Palmer MDReferring ProviderActiveStart: June 08, 2023 End: June 08, 2023Jaberonica De La Cruz , RPHAttending ProviderActiveStart: June 08, 2023 End: June 08, 2023Team MemberRelationshipSpecialtyStart DateEnd Richard Barker MD [address] [place] [address] PCP - General10/09/20Team MemberRelationshipSpecialtyStart DateEnd Richard Barker MD [address] [place] [address] PCP - General10/09/20Team MemberRelationshipSpecialtyStart DateEnd [facility] Richard Rodríguez MD [address] [place] [address] PCP - General10/09/20 Team Status: Inactive Member Role Status Radha Rodríguez MD Primary Care Provide r, Referring Provider Active Start: July 06, 2023 End: July 06, 2023Sean Bourgeois PharmDAttending ProviderActiveStart: July 06, 2023 End: July 06, 2023 Team Status: Inactive Member Role Status Radha Rodríguez MD Primary Care Provider Active St art: July 12, 2023 End: July 12, 2023Mourhaf Traboulssi , MDReferring ProviderActiveStart: July 12, 2023 End: July 12, 2023Jacqueline Austin , RPHAttending ProviderActiveStart: July 12, 2023 End: July 12, 2023 Team Status: Inactive Member Role Status Radha Rodríguez MD Primary Care Provider Active St art: July 21, 2023 End: July 21, 2023Mourhaf Traboulssi , MDReferring ProviderActiveStart: July 21, 2023 End: July 21, 2023Jacqueline Jono , RPHAttending ProviderActiveStart: July 21, 2023 End: July 21, 2023 Team Status: Inactive Member Role Status Radha Rodríguez MD Primary Care Provider Active St art: July 28, 2023 End: July 28, 2023Mourhaf Traboulssi , MDReferring ProviderActiveStart: July 28, 2023 End: July 28, 2023Jacqueline Jono , RPHAttending ProviderActiveStart: July 28, 2023 End: July 28, 2023 Team Status: Inactive Member Role Status Radha Rodríguez MD Primary Care Provider Active St art: August 03, 2023 End: August 03, 2023Mourhaf Traboulssi , MDReferring ProviderActiveStart: August 03, 2023 End: August 03, 2023Jacqueline Austin , RPHAttending ProviderActiveStart: August 03, 2023 End: August 03, 2023Team MemberRelationshipSpecialtyStart DateEnd Date Richard Rodríguez MD [address] [place] [address] [facility] - General10/09/20 Team Status: Inactive Member Role Status Radha Rodríguez MD Primary Care Provider Active St art: August 30, 2023 End: August 30, 2023Mattmatt Belle MDAttending ProviderActiveStart: August 30, 2023 End: August 30, 2023 Team Status: Inactive Member Role Status Radha Rodríguez MD Primary Care Provider Active St art: September 01, 2023 End: September 01, 2023Mourhaf Traboulssi , MDReferring ProviderActiveStart: September 01, 2023 End: September 01, 2023Sean Bourgeois PharmDAttending ProviderActiveStart: September 01, 2023 End: September 01, 2023 Team Status: Inactive Member Role Status Radha Rodríguez MD Primary Care Provider Active St art: September 29, 2023 End: September 29, 2023Mourhaf Traboulssi , MDReferring ProviderActiveStart: September 29, 2023 End: September 29, 2023Jacqueline Jono , RPHAttending ProviderActiveStart: September 29, 2023 End: September 29, 2023 Team Status: Inactive Member Role Status Radha Rodríguez MD Primary Care Provider Active St art: October 25, 2023 End: October 25, 2023Matamiko Belle , MDAttending ProviderActiveStart: October 25, 2023 End: October 25, 2023 Team Status: Inactive Member Role Status Radha Rodríguez MD Primary Care Provider Active St art: October 27, 2023 End: October 27, 2023Mourhaf Traboulssi , MDReferring ProviderActiveStart: October 27, 2023 End: October 27, 2023Jacqueline Austin , RPHAttending ProviderActiveStart: October 27, 2023 End: October 27, 2023 Team Status: Inactive Member Role Status Radha Rodríguez MD Primary Care Provider Active St art: November 03, 2023 End: November 02lenora Brink , DOAttending ProviderActiveStart: November 03, 2023 End: November 03, 2023 Team Status: Inactive Member Role Status Radha Rodríguez MD Primary Care Provider Active St art: November 09, 2023 End: November 09, 2023Mourhaf Traboulssi , MDReferring ProviderActiveStart: November 09, 2023 End: November 09, 2023Jacqueline Austin , RPHAttending ProviderActiveStart: November 09, 2023 End: November 09, 2023 Team Status: Active Member Role Status Radha Rodríguez MD Primary Care Provider Active St art: November 09, 2023 Lucinda WilliamsonAttending ProviderActiveStart: November 09, 2023 Team Status: Inactive Member Role Status Radha Rodríguez MD Primary Care Provider Active St art: November 24, 2023 End: November 24, 2023Mourhaf Traboulssi , MDReferring ProviderActiveStart: November 24, 2023 End: November 24, 2023McKenna Estebanner , PharmDAttending ProviderActiveStart: November 24, 2023 End: November 24, 2023 Team Status: Inactive Member Role Status Radha Rodríguez MD Primary Care Provider Active St art: December 15, 2023 End: December 15, 2023Mourhaf Traboulssi , MDReferring ProviderActiveStart: December 15, 2023 End: December 15, 2023McKenna Sanner , PharmDAttending ProviderActiveStart: December 15, 2023 End: December 15, 2023 Team Status: Inactive Member Role Status Radha Rodríguez MD Primary Care Provider Active St art: January 05, 2024 End: January 05, 2024Mourhaf Traboulssi , MDReferring ProviderActiveStart: January 05, 2024 End: January 05, 2024Jacstephan De La Cruz , RPHAttending ProviderActiveStart: January 05, 2024 End: January 05, 2024Team MemberRelationshipSpecialtyStart DateEnd Date Richard Rodríguez MD [facility] [address] [place] [address] PCP - General10/09/20Team MemberRelationshipSpecialtyStart DateEnd [facility] Richard Rodríguez MD [address] [place] [address] PCP - General07/27/22 Richard Rodríguez MD [address] [place] [address] PCP - ACO Reach06/22/23 Agnes Hatfield APRN-REGULATORY CONSULTANT [address] [place] [address] Nurse PractitionerDermatology08/27/22 Jose Angel Palmer MD [address] [facility] [address] [place] [address] Referring PhysicianCardiology08/27/22 Maximiliano Belle MD [address] [place] [phone] Referring PhysicianRheumatology08/27/22 Eric Kemp MD [address]03 [facility] [address] [place] [phone] Consulting Physician08/30/22Team MemberRelationshipSpecialtyStart DateEnd Richard Rodríguez MD [address] [place] [address] PCP - General07/27/22 Richard Rodríguez MD [address] [place] [address] PCP - ACO Reach06/22/23 Agnes Hatfield, INSPECTOR MECHANICAL-REGULATORY CONSULTANT [address] [place] [address] Nurse PractitionerDermatology08/27/22 Jose Angel Palmer MD [address]03 [facility] [address] [place] [address] Referring PhysicianCardiology08/27/22 Maximiliano Belle MD [address] Professional [address] [place] [address] Referring PhysicianRheumatology08/27/22 Eric Kemp MD [address]03 [facility] [address] [place] [phone] Consulting Physician08/30/22Team MemberRelationshipSpecialtyStart DateEnd Date Richard Rodríguez MD [address] [place] [address] PCP - General07/27/22 Richard Rodríguez MD [address] [facility] [address] [place] [address] PCP - ACO Reach06/22/23 Agnes Hatfield, ROCHELLE-REGULATORY CONSULTANT [address] [facility] [address] [place] [address] Nurse PractitionerDermatology08/27/22 Jose Angel Palmer MD [address]03 [facility] [address] [place] [address] Referring PhysicianCardiology08/27/22 Maximiliano Belle MD [address] [facility] Professional [address] [place] [address] Referring PhysicianRheumatology08/27/22 Eric Kemp MD [address] [phone] Consulting Physician08/30/22 Team Status: Inactive Member Role Status Dates Richard Rodríguez MD Primary Care Provider Active St art: January 17, 2024 End: January 17, 2024Mattmatt Belle , MDAttending ProviderActiveStart: January 17, 2024 End: January 17, 2024 Team Status: Inactive Member Role Status Dates Richard Rodríguez MD Primary Care Provider Active St art: January 30, 2024 End: January 30, 2024Morefugio Palmer , MDReferring ProviderActiveStart: January 30, 2024 End: January 30, 2024Jacstephan De La Cruz RPHAttending ProviderActiveStart: January 30, 2024 End: January 30, 2024 Team Status: Inactive Member Role Status Dates Richard Rodríguez MD Primary Care Provider Active St art: March 01, 2024 End: March 01, 2024Morefugio Palmer , MDReferring ProviderActiveStart: March 01, 2024 End: March 01, 2024McEtelvina Bourgeois PharmDAttending ProviderActiveStart: March 01, 2024 End: March 01, 2024Team MemberRelationshipSpecialtyStart DateEnd Date Richard Rodríguez MD [address] [place] [address] PCP - General07/27/22 Richard Rodríguez MD [address] [place] [address] PCP - ACO Reach06/22/23 Agnes Hatfield, INSPECTOR MECHANICAL-REGULATORY CONSULTANT [address] [place] [address] Nurse PractitionerDermatology08/27/22 Jose Angel Palmer MD 703 [facility] [address] [place] [address] Referring PhysicianCardiology08/27/22 Maximiliano Belle MD [address] Professional [address] [place] [address] Referring PhysicianRheumatology08/27/22 Eric Kemp MD 703 [facility] [address] [place] [phone] Consulting Physician08/30/22 Tianna Sauceda, ZOHAIB Registered NurseInternal Medicine02/28/24Team MemberRelationshipSpecialtyStart DateEnd Date Richard Rodríguez MD [address] [facility] [address] [place] [address] PCP - General07/27/22 Richard Rodríguez MD [address] [facility] [address] [place] [address] PCP - ACO Reach06/22/23 Agnes Hatfield, INSPECTOR MECHANICAL-REGULATORY CONSULTANT [address] [facility] [address] [place], [place] [address] Nurse PractitionerDermatology08/27/22 Jose Angel Palmer MD 703 [facility] [address] [place] [address] Referring PhysicianCardiology08/27/22 Maximiliano Belle MD [address] [place] [phone] Referring PhysicianRheumatology08/27/22 Eric Kemp MD [address] [place] [address] [place] [address] Consulting Physician08/30/22 Tainna Sauceda RN Registered NurseInternal Medicine02/28/24Team MemberRelationshipSpecialtyStart DateEnd Richard Rodríguez MD [address] [facility] [address] [place] [address] PCP - General07/27/22 Richard Rodríguez MD [address] [facility] [address] [place] [address] PCP - ACO Reach06/22/23 Agnes Hatfield APRN-REGULATORY CONSULTANT [address] [facility] [address] [place] [address] Nurse PractitionerDermatology08/27/22 Jose Angel Palmer MD 703 [facility] [address] [place] [address] Referring PhysicianCardiology08/27/22 Maximiliano Belle MD [address] [place] [address] Referring PhysicianRheumatology08/27/22 Eric Kemp MD [address] [phone] Consulting Physician08/30/22 Tianna Sauceda RN Registered NurseInternal Medicine02/28/24Team MemberRelationshipSpecialtyStart DateEnd Richard Rodríguez MD [address] [facility] [address] [place] [address] PCP - General07/27/22 Richard Rodríguez MD [address] [place] [address] PCP - ACO Reach06/22/23 Agnes Hatfield APRN-REGULATORY CONSULTANT [address] [place] [address] Nurse PractitionerDermatology08/27/22 Jose Angel Palmer MD [address] [place] [address] Referring PhysicianCardiology08/27/22 Maximiliano Belle MD [address] Professional [address] [place] [address] Referring PhysicianRheumatology08/27/22 Eric Kemp MD 703 [facility] [address] [place] [address] Consulting Physician08/30/22 Tianna Sauceda RN Registered NurseInternal Medicine02/28/24Team MemberRelationshipSpecialtyStart DateEnd Date Richard Rodríguez MD [address] [place] [address] PCP - General07/27/22 Richard Rodríguez MD [address] [place] [address] PCP - ACO Reach06/22/23 Agnes Hatfield APRN-REGULATORY CONSULTANT [address] [place] [address] Nurse PractitionerDermatology08/27/22 Jose Angel Palmer MD 703 [facility] [address] [place] [address] Referring PhysicianCardiology08/27/22 Maximiliano Belle MD [address] Professional [address] [place] [address] Referring PhysicianRheumatology08/27/22 Eric Kemp MD 703 [facility] [address] [place] [phone] Consulting Physician08/30/22 Tianna Sauceda, ZOHAIB Registered NurseInternal Medicine02/28/24 Team Status: Inactive Member Role Status Dates Richard Rodríguze MD Primary Care Provider Active St art: March 29, 2024 End: March 29, 2024Morefugio Palmer , MDReferring ProviderActiveStart: March 29, 2024 End: March 29, 2024Jacqueline Jono , RPHAttending ProviderActiveStart: March 29, 2024 End: March 29, 2024 Team Status: Inactive Member Role Status Dates Richard Rodríguez MD Primary Care Provider Active St art: April 09, 2024 End: April 09, 2024Morefguio Palmer , MDReferring ProviderActiveStart: April 09, 2024 End: April 09, 2024Jacqueline Jono , RPHAttending ProviderActiveStart: April 09, 2024 End: April 09, 2024Team MemberRelationshipSpecialtyStart DateEnd Date Richard Rodríguez MD [address] [place] [address] PCP - General07/27/22 Richard Rodríguez MD [address] [place] [address] PCP - ACO Reach06/22/23 Agnes Hatfield APRN-REGULATORY CONSULTANT [address] [place] [address] Nurse PractitionerDermatology08/27/22 Jose Angel Palmer MD [address]03 [facility] [address] [place] [address] Referring PhysicianCardiology08/27/22 Maximiliano Belle MD [address] [place] [address] Referring PhysicianRheumatology08/27/22 Eric Kemp MD [address] Professional [address] [place] [phone] Consulting Physician08/30/22 Tianna Sauceda, ZOHAIB Registered NurseInternal Medicine02/28/24Team MemberRelationshipSpecialtyStart DateEnd Date Richard Rodríguez MD [address] [place] [address] PCP - General07/27/22 Richard Rodríguez MD [address] [place] [address] PCP - ACO Reach06/22/23 Agnes Hatfield APRN-REGULATORY CONSULTANT [address] [place] [address] Nurse PractitionerDermatology08/27/22 Jose Angel Palmer MD 703 [facility] [address] [place] [address] Referring PhysicianCardiology08/27/22 Maximiliano Belle MD [address] Professional [address] [place] [address] Referring PhysicianRheumatology08/27/22 Eric Kemp MD [address] Professional [address] [place] [address] Consulting Physician08/30/22 Tianna Sauceda RN Registered NurseInternal Medicine02/28/24 Team Status: Inactive Member Role Status Dates Richard Rodríguez MD Primary Care Provider Active St art: April 19, 2024 End: April 19, 2024Matthew JONEL Bellettending ProviderActiveStart: April 19, 2024 End: April 19, 2024Team MemberRelationshipSpecialtyStart DateEnd Date Richard Rodríguez MD [address] [place] [address] PCP - General07/27/22 Richard Rodríguez MD [address] [place] [address] PCP - ACO Reach06/22/23 Agnes Hatfield, INSPECTOR MECHANICAL-REGULATORY CONSULTANT [address] [place] [address] Nurse PractitionerDermatology08/27/22 Jose Angel Palmer MD 703 [facility] [address] [place] [address] Referring PhysicianCardiology08/27/22 Maximiliano Belle MD [address] Professional [address] [place] [address] Referring PhysicianRheumatology08/27/22 Eric Kemp MD [address] Professional [address] [place] [address] Consulting Physician08/30/22 Tianna Sauceda, ZOHAIB Registered NurseInternal Medicine02/28/24 Team Status: Inactive Member Role Status Dates Richard Rodríguez MD Primary Care Provider Active St art: May 14, 2024 End: May 14, 2024MourVANE Garzaeferring ProviderActiveStart: May 14, 2024 End: May 14, 2024Jacstephan De La Cruz RPHAttending ProviderActiveStart: May 14, 2024 End: May 14, 2024Team MemberRelationshipSpecialtyStart DateEnd Date Richard Rodríguez MD [address] [place] [address] PCP - General07/27/22 Richard Rodríguez MD [address] [place] [address] PCP - ACO Reach06/22/23 Agnes Hatfield, INSPECTOR MECHANICAL-REGULATORY CONSULTANT [address] [place] [address] Nurse PractitionerDermatology08/27/22 Jose Angel Palmer MD [address] [facility] [address], [address] [place] [address] Referring PhysicianCardiology08/27/22 Maximiliano Belle MD [address] [place] [address] Referring PhysicianRheumatology08/27/22 Eric Kemp MD [address] [place] [address] Consulting Physician08/30/22 Tianna Sauceda, ZOHAIB Registered NurseInternal Medicine02/28/24Team MemberRelationshipSpecialtyStart DateEnd Date Richard Rodríguez MD [address] [place] [address] PCP - General07/27/22 Richard Rodríguez MD [address] [place] [address] PCP - ACO Reach06/22/23 Agnes Hatfield, INSPECTOR MECHANICAL-REGULATORY CONSULTANT [address] [place] [address] Nurse PractitionerDermatology08/27/22 Jose Angel Palmer MD [address] [place] [address] [address], [address] [place] [address] Referring PhysicianCardiology08/27/22 Maximiliano Belle MD [address] [place] [address] Referring PhysicianRheumatology08/27/22 Eric Kemp MD [address] Professional [address] [place] [address] Consulting Physician08/30/22 Tianna Sauceda RN Registered NurseInternal Medicine02/28/24 Team Status: Inactive Member Role Status Radha Rodríguez MD Primary Care Provider Active St art: June 11, 2024 End: June 11, 2024Mourhaf Traboulssi , MDReferring ProviderActiveStart: June 11, 2024 End: June 11, 2024Jacqueline Jono , RPHAttending ProviderActiveStart: June 11, 2024 End: June 11, 2024 Team Status: Inactive Member Role Status Radha Rodríguez MD Primary Care Provider Active St art: July 10, 2024 End: July 10, 2024Mourhaf Traboulssi , MDReferring ProviderActiveStart: July 10, 2024 End: July 10, 2024Jacqueline Jono , RPHAttending ProviderActiveStart: July 10, 2024 End: July 10, 2024 Team Status: Inactive Member Role Status Radha Rodríguez MD Primary Care Provider Active St art: July 18, 2024 End: July 18atherine L Ly , DOAttending ProviderActiveStart: July 18, 2024 End: July 18, 2024Team MemberRelationshipSpecialtyStart DateEnd Date Richard Rodríguez MD [address] [place] [address] PCP - General07/27/22 Richard Rodríguez MD [address] [place] [address] PCP - ACO Reach06/22/23 Agnes Hatfield APRN-REGULATORY CONSULTANT [address] [place] [address] Nurse PractitionerDermatology08/27/22 Jose Angel Palmer MD [address]03 [facility] 2, [address] [place] [address] Referring PhysicianCardiology08/27/22 Maximiliano Belle MD [address] Professional [address] [place] [address] Referring PhysicianRheumatology08/27/22 Eric Kemp MD [address] [place] [address] Consulting Physician08/30/22 Tianna Sauceda, ZOHAIB Registered NurseInternal Medicine02/28/24Team MemberRelationshipSpecialtyStart DateEnd Date Richard Rodríguez MD [address] [place] [address] PCP - General07/27/22 Richard Rodríguez MD [address] [place] [address] PCP - ACO Reach06/22/23 Agnes Hatfield, INSPECTOR MECHANICAL-REGULATORY CONSULTANT [address] [place] [address] Nurse PractitionerDermatology08/27/22 Jose Angel Palmer MD [address]03 [facility] 2, [address] [place] [address] Referring PhysicianCardiology08/27/22 Maximiliano Belle MD [address] [place] [address] Referring PhysicianRheumatology08/27/22 Eric Kemp MD [address] Professional [address] [place] [address] Consulting Physician08/30/22 Tianna Sauceda RN Registered NurseInternal Medicine02/28/24Team MemberRelationshipSpecialtyStart DateEnd Date Richard Rodríguez MD [address] [place] [address] PCP - General10/09/20 Team Status: Inactive Member Role Status Dates Richard Rodríguez MD Primary Care Provider Active St art: July 24, 2024 End: July 24, 2024Mourhaf Traboulssi , MDReferring ProviderActiveStart: July 24, 2024 End: July 24, 2024Jacstephan De La Cruz , RPHAttending ProviderActiveStart: July 24, 2024 End: July 24, 2024 Team Status: Inactive Member Role Status Dates Richard Rodríguez MD Primary Care Provider Active St art: August 06, 2024 End: August 06atherine L Ly , DOAttending ProviderActiveStart: August 06, 2024 End: August 06, 2024 Team Status: Active Member Role Status Dates Richard Rodrígeuz MD Primary Care Provider Active St art: August 06, 2024 Tamika L Ly , DOAttending ProviderActiveStart: August 06, 2024 Tamika L Ly , DOOther ProviderActiveStart: August 06, 2024 Team Status: Inactive Member Role Status Dates Richard Rodríguez MD Primary Care Provider Active St art: August 13, 2024 End: August 13, 2024Mourhaf Traboulssi , MDReferring ProviderActiveStart: August 13, 2024 End: August 13, 2024Jacquemarques Jono , RPHAttending ProviderActiveStart: August 13, 2024 End: August 13, 2024 Team Status: Inactive Member Role Status Dates Richard Rodríguez MD Primary Care Provider Active St art: August 15, 2024 End: August 15, 2024Mattmatt Belle MDAttjax ProviderActiveStart: August 15, 2024 End: August 15, 2024Team MemberRelationshipSpecialtyStart DateEnd Date Richard Rodríguez MD [address] [place] [address] PCP - General10/09/20 Gunner Colorado MD [address] [facility] [address], [address] [place] [address] CardiologistCardiology-Clinical Cardiac Electrophysiology08/10/24Team Member RelationshipSpecialtyStart DateEnd Date Richard Rodríguez MD [address] [place] [address] PCP - General07/27/22 Richard Rodríguez MD [address] [place] [address] PCP - ACO Reach06/22/23 Agnes Hatfield APRN-REGULATORY CONSULTANT [address] [place] [address] Nurse PractitionerDermatology08/27/22 Jose Angel Palmer MD [address] [facility] 2, [address] [place] [address] Referring PhysicianCardiology08/27/22 Maximiliano Belle MD [address] [place] [address] Referring PhysicianRheumatology08/27/22 Eric Kemp MD [address] [place] [address] Consulting Physician08/30/22 Tianna Sauceda, ZOHAIB [address] [facility] [address] [place] [address] Registered NurseInternal Medicine02/28/24 Team Status: Inactive Member Role Status Dates Richard Rodríguez MD Primary Care Provider Active St art: August 29, 2024 End: August 29, 2024Mourjacob Palmer , MDReferring ProviderActiveStart: August 29, 2024 End: August 29, 2024Jacstephan De La Cruz RPHAttending ProviderActiveStart: August 29, 2024 End: August 29, 2024Team MemberRelationshipSpecialtyStart DateEnd Date Richard Rodríguez MD [address] [place] [address] PCP - General10/09/20 Gunner Colorado MD [address] [facility], [facility] [address] [place] [address] CardiologistCardiology-Clinical Cardiac Electrophysiology08/10/24 Javan Magallanes MD [address] [facility] Office [facility], [address] [place] [address] CardiologistStructural Heart09/05/24 Team Status: Inactive Member Role Status Dates Richard Rodríguez MD Primary Care Provider Active St art: September 10, 2024 End: September 10, 2024Mourhamayela Palmer , MDReferring ProviderActiveStart: September 10, 2024 End: September 10, 2024Jacstephan De La Cruz , RPHAttending ProviderActiveStart: September 10, 2024 End: September 10, 2024Team MemberRelationshipSpecialtyStart DateEnd Richard Barker MD [address] [place] [address] PCP - General07/27/22 Richard Rodríguez MD [address] [place] [address] PCP - ACO Reach06/22/23 Agnes Hatfield, INSPECTOR MECHANICAL-REGULATORY CONSULTANT [address] [place] [address] Nurse PractitionerDermatology08/27/22 Jose Angel Palmer MD [address]03 [facility] 2, [address] [place] [address] Referring PhysicianCardiology08/27/22 Maximiliano Belle MD [address] [place] [address] Referring PhysicianRheumatology08/27/22 Eric Kemp MD [address] [place] [address] Consulting Physician08/30/22 Tianna Sauceda, ZOHAIB [address] [place] [address] Registered NurseInternal Medicine02/28/24Team MemberRelationshipSpecialtyStart DateEnd Date Richard Rodríguez MD [address] [place] [phone] PCP - General10/09/20 Gunner Colorado MD [address] [facility] [address], [address] [place] [address] CardiologistCardiology-Clinical Cardiac Electrophysiology08/10/24 Javan Magallanes MD [address] [facility] [address] [place] [address] CardiologistStructural [facility]09/05/24Team MemberRelationshipSpecialtyStart DateEnd Date Richard Rodríguez MD [facility] [address] [place] [address] PCP - [facility]10/09/20 Gunner Colorado MD [address] [facility] [place] [address] CardiologistCardiology-Clinical Cardiac Electrophysiology08/10/24 Javan Magallanes MD [address] [facility] [address], [address] [place] [address] CardiologistSLewisGale [facility]09/05/24 Team Status: Inactive Member Role Status Dates Richard Rodríguez MD Primary Care Provider Active St art: October 03, 2024 End: October 03, 2024Thsabina Hatfield MDAttending ProviderActiveStart: October 03, 2024 End: October 03, 2024MONE Blakely-CReferring ProviderActiveStart: October 03, 2024 End: October 03, 2024 Team Status: Inactive Member Role Status Dates Richard Rodríguez MD Primary Care Provider Active St art: October 04, 2024 End: October 04, 2024VANE Retanaeferring ProviderActiveStart: October 04, 2024 End: October 04, 2024Harriet GoodwinDAttending ProviderActiveStart: October 04, 2024 End: October 04, 2024Team MemberRelationshipSpecialtyStart DateEnd Date Richard Rodríguez MD [address] [place] [phone] PCP - General10/09/20 Gunner Colorado MD [address] [facility] [place] [address] CardiologistCardiology-Clinical Cardiac Electrophysiology08/10/24 Javan Magallanes MD [address] [facility] [address], [address] [place] [address] [facility] Heart09/05/24 Team Status: Active Member Role Status Dates Richard Rodríguez MD Primary Care Provider Active St art: October 16, 2024 Destin Hatfield MDAttending ProviderActiveStart: October 16, 2024 Destin Hatfield MDOther ProviderActiveStart: October 16, 2024 Team Status: Inactive Member Role Status Dates Richard Rodríguez MD Primary Care Provider Active St art: October 18, 2024 End: October 18, 2024Mourjacob Palmer MDReferring ProviderActiveStart: October 18, 2024 End: October 18, 2024Jacstephan De La Cruz RPHAttending ProviderActiveStart: October 18, 2024 End: October 18, 2024Team MemberRelationshipSpecialtyStart DateEnd Date Richard Rodríguez MD [address] [place] [address] PCP - General07/27/22 Richard Rodríguez MD [address] [place] [address] PCP - ACO Reach06/22/23 Agnes Hatfield, INSPECTOR MECHANICAL-REGULATORY CONSULTANT [address] [place] [address] Nurse PractitionerDermatology08/27/22 Jose Angel Palmer MD [address] [facility] [address], [address] [place] [address] Referring PhysicianCardiology08/27/22 Maximiliano Belle MD [address] [place] [address] Referring PhysicianRheumatology08/27/22 Eric Kemp MD [address] [place] [address] Consulting Physician08/30/22 Tianna Sauceda, ZOHAIB [address] [place] [address] Registered NurseInternal Medicine02/28/24 Team Status: Inactive Member Role Status Dates Richard Rodríguez MD Primary Care Provider Active St art: October 24, 2024 End: October 24, 2024ThSophie Arora ProviderActiveStart: October 24, 2024 End: October 24, 2024 Team Status: Inactive Member Role Status Dates Richard Rodríguez MD Primary Care Provider Active St art: November 05, 2024 End: November 05, 2024Morefugio Palmer , MDReferring ProviderActiveStart: November 05, 2024 End: November 05, 2024JacAdriane Perez ProviderActiveStart: November 05, 2024 End: November 05, 2024 Team Status: Inactive Member Role Status Dates Richard Rodríguez MD Primary Care Provider Active St art: November 27, 2024 End: November 27, 2024Moshivahaf Geovannii , MDReferring ProviderActiveStart: November 27, 2024 End: November 27, 2024Jada Jono Adriane ProviderActiveStart: November 27, 2024 End: November 27, 2024 Goals (unrecognized section and content) Goals may be documented in a n alternate section PRN Active and Recently Administ ered Medications (unrecognized section and content) Medication Order/// heparin 1,000 unit/mL injection (CANCELED) As needed, Starting on Tue07/13/23 at 0942, Intraprocedure * 0942 (Given - Provider: Susie Green RN - Comment: RFV sheathanticoagulation for left sided ablationverified by ZOHAIB Quiroz) Medication Order// aspirin chewable tablet 324 mg (COMPLETED) 324 mg, oral, Once, On Tue09/26/24 at 0815, For 1 dose, Preprocedure * 0811 (Given - Provider: Ashley Savage RN) vancomycin (Vancocin) 1,000 mg in dextrose 5% IV 200 mL (COMPLETED) 1,000 mg, intravenous, at 200 mL/hr, Administer over 60 Minutes, Once, On Tue09/26/24 at 0815, For 1dose, Preprocedure, Administer within 120 minutes prior to incision. premix bag, Dosing of this medication varies based on severity of illness. Does this patient have sepsis or concern for sepsis (probable or documented infection plus systemic manifestations of infection)? No, Suspected Indication (Select all that apply): Surgical Prophylaxis, Indications: Surgical Prophylaxis * 0815 (Due) * 0911 (New Bag - Provider: Perry Cox RN - Comment: antibiotic) Medication Order// acetaminophen (Tylenol) oral liquid 650 mg(Linked Group 1) 650 mg, oral, Every 6 hours PRN, pain mild (1-3), first line, Starting on Tue09/26/24 at 1053, Give oral liquid if patient prefers or per feeding tube if present. If inadequate response within 60 minutes, proceed to next-line agent for same PRN reason or contact provider if no further options ordered. acetaminophen (Tylenol) suppository 650 mg(Linked Group 1) 650 mg, rectal, Every 6 hours PRN, pain mild (1-3), first line, Starting on Tue09/26/24 at 1053, Give rectally if unable to administer by mouth or feeding tube. If inadequate response within 60 minutes, proceed to next-line agent for same PRN reason or contact provider if no further options ordered., If ordered PRN for pain, nurse is permitted to administer this medication for higher pain scores based on patient preference? Yes acetaminophen (Tylenol) tablet 650 mg(Linked Group 1) 650 mg, oral, Every 6 hours PRN, pain mild (1-3), first line, Starting on Tue09/26/24 at 1053, If inadequate response within 60 minutes, proceed to next-line agent for same PRN reason or contact provider if no further options ordered., If ordered PRN for pain, nurse is permitted to administer this medication for higher pain scores based on patient preference? Yes fentaNYL PF (Sublimaze) injection (CANCELED) As needed, Starting on Tue09/26/24 at 0935, Intraprocedure * 0935 (Given - Provider: Heriberto Hager RN - Comment: sedation) * 1003 (Given - Provider: Heriberto Hager RN - Comment: sedation) heparin 1,000 unit/mL injection (CANCELED) As needed, Starting on Tue09/26/24 at 0941, Intraprocedure * 0941 (Given - Provider: Heriberto Hager RN - Comment: anticoagulationdose verified by Elpidio) * 0950 (Given - Provider: Karlie Sanders RN - Comment: anticoagulationdose verified by Elpidio) iohexol (OMNIPaque) 350 mg iodine/mL solution (CANCELED) As needed, Starting on Tue09/26/24 at 1029, Intraprocedure * 1029 (Given - Provider: Javan Magallanes MD - Comment: xray imaging) lidocaine (Xylocaine) 20 mg/mL (2 %) injection (CANCELED) As needed, Starting on Tue09/26/24 at 0935, Intraprocedure * 0935 (Given - Provider: Javan Magallanes MD - Comment: anesthetic right groin SQ) midazolam (Versed) injection (CANCELED) As needed, Starting on Tue09/26/24 at 0934, Intraprocedure * 0934 (Given - Provider: Heriberto Hager RN - Comment: sedation) * 1002 (Given - Provider: Heriberto Hager RN - Comment: sedation) ondansetron (Zofran) injection 4 mg(Linked Group 2) 4 mg, intravenous, Every 8 hours PRN, nausea/vomiting, first line, Starting on Tue09/26/24 at 1053, 1st Line. Give IV if patient is unable to take orally. If inadequate response within 60 minutes, proceed to next-line agent for same PRN reason or contact provider if no further options ordered. When administering via IV Push, administer over 3-5 minutes. ondansetron (Zofran) tablet 4 mg(Linked Group 2) 4 mg, oral, Every 8 hours PRN, nausea/vomiting, first line, Starting on Tue09/26/24 at 1053, 1st Line. Use oral route first, if possible. If inadequate response within 60 minutes, proceed to next-lineagent for same PRN reason or contact provider if no further options ordered. oxygen (O2) therapy (CANCELED) As needed, Starting on Tue09/26/24 at 0909, Intraprocedure * 0909 (Given - Provider: Perry Cox RN - Comment: oxygen prophylaxis) oxygen (O2) therapy inhalation, Continuous - O2/gases, oxygen, Starting on Tue09/26/24 at 1053, Wean oxygen therapy as tolerated., Device: Nasal Cannula, Rate in liters per minute: 2 LPM, Keep O2 Sat Above: 92% protamine injection (COMPLETED) Continuous PRN, Starting on Tue09/26/24 at 1030, Intraprocedure * 1030 (New Bag - Provider: Javan Magallanes MD - Comment: Heparin reversal) traMADol (Ultram) tablet 50 mg 50 mg, oral, Every 6 hours PRN, pain moderate (4-6), first line, Starting on Tue09/26/24 at 1053, Ifordered PRN for pain, nurse is permitted to administer this medication for higher pain scores basedon patient preference? Yes Order Group 1: acetaminophen (Tylenol) tablet 650 mgJump to med 650 mg, oral, Every 6 hours PRN, pain mild (1-3), first line, Starting on Tue09/26/24 at 1053, If inadequate response within 60 minutes, proceed to next-line agent for same PRN reason or contact provider if no further options ordered., If ordered PRN for pain, nurse is permitted to administer this medication for higher pain scores based on patient preference? Yes Or acetaminophen (Tylenol) oral liquid 650 mgJump to med 650 mg, oral, Every 6 hours PRN, pain mild (1-3), first line, Starting on Tue09/26/24 at 1053, Give oral liquid if patient prefers or per feeding tube if present. If inadequate response within 60 minutes, proceed to next-line agent for same PRN reason or contact provider if no further options ordered. Or acetaminophen (Tylenol) suppository 650 mgJump to med 650 mg, rectal, Every 6 hours PRN, pain mild (1-3), first line, Starting on Tue09/26/24 at 1053, Give rectally if unable to administer by mouth or feeding tube. If inadequate response within 60 minutes, proceed to next-line agent for same PRN reason or contact provider if no further options ordered., If ordered PRN for pain, nurse is permitted to administer this medication for higher pain scores based on patient preference? Yes Group 2: ondansetron (Zofran) tablet 4 mgJump to med 4 mg, oral, Every 8 hours PRN, nausea/vomiting, first line, Starting on Tue09/26/24 at 1053, 1st Line. Use oral route first, if possible. If inadequate response within 60 minutes, proceed to next-lineagent for same PRN reason or contact provider if no further options ordered. Or ondansetron (Zofran) injection 4 mgJump to med 4 mg, intravenous, Every 8 hours PRN, nausea/vomiting, first line, Starting on Tue09/26/24 at 1053, 1st Line. Give IV if patient is unable to take orally. If inadequate response within 60 minutes, proceed to next-line agent for same PRN reason or contact provider if no further options ordered. When administering via IV Push, administer over 3-5 minutes. FOR RECORDS PERTAINING TO PATIENTS WHO ARE OR HAVE BEEN ENROLLED IN A CHEMICAL DEPENDENCY/SUBSTANCEABUSE PROGRAM, SOME INFORMATION MAY BE OMITTED. This clinical summary was aggregated from multiple sources. Caution should be exercised in using it in the provision of clinical care. This summary normalizes information from multiple sources, and as a consequence, information in this document may materially change the coding, format and clinical context of patient data. In addition, data may be omitted in some cases. CLINICAL DECISIONS SHOULD BE BASED ON THE PRIMARY CLINICAL RECORDS. [facility] [employer] [facility]. provides no warranty or guarantee of the accuracy or completeness of information in this document.
[2024-12-18 22:51] LABS: Hematocrit 40.7 % (42.0-54.0); Hemoglobin 13.7 g/dL (14.0-18.0); Immature Granulocytes Abs Auto 0.01 10^3/uL (0.00-0.03); Immature Granulocytes Pct Auto 0.1 % (0.0-0.5); Lymphocytes Absolute Auto 1.8 10^3/uL (1.2-3.8); Mean Corpuscular HGB Conc 33.7 g/dL (29.9-35.2); Mean Corpuscular Hemoglobin 31.4 pg (25.9-34.0); Mean Corpuscular Volume 93.1 fL (80.0-94.0); Platelet Count 212 10^3/uL (150-450); Red Blood Count 4.37 10^6/uL (4.70-6.10); White Blood Count 6.7 10^3/uL (4.0-11.0)
[2024-12-18] MEDS: EPINEPHRINE HCL PF 1 MG/ML AMPULE 0.3 MG SUBQ (23:01)
[2024-12-18] MEDS: METHYLPREDNISOLONE SOD SUCC PF 125 MG/2 ML VIAL IVP (23:02)
[2024-12-18] MEDS: FAMOTIDINE/PF 20 MG/2 ML VIAL IV (23:02)
[2024-12-18] MEDS: TRANEXAMIC ACID 1,000 MG in 0.9 % SODIUM CHLORIDE 100 ML 440 MG IV (23:03)
[2024-12-18] MEDS: DIPHENHYDRAMINE HCL 50 MG/ML VIAL IVP (23:04)
[2024-12-18 23:07] LABS: Alanine Aminotransferase 35 U/L (16-63); Albumin Globulin Ratio 1.0; Albumin Level 3.5 g/dL (3.4-5.0); Alkaline Phosphatase 51 U/L (46-116); Anion Gap 10.2; Aspartate Amino Transferase 23 U/L (15-37); Blood Urea Nitrogen 16.0 mg/dL (7.0-18.0); Calcium 9.2 mg/dL (8.5-10.1); Carbon Dioxide 30.6 mmol/L (21.0-32.0); Chloride 101 mmol/L (98-107); Estimated GFR (African America >60 (>=60 mL/min/1.73m^2); Estimated GFR (Non-African Ame >60 (>=60 mL/min/1.73m^2); Globulin 3.4 g/dL; Glucose 115 mg/dL (74-106); Potassium 3.8 mmol/L (3.5-5.1); Sodium 138 mmol/L (136-145); Total Protein 6.9 g/dL (6.4-8.2)
--- NOTE | 2024-12-18 23:11 | PC.NURSE ---
All meds given between 2246 to 4290
--- NOTE | 2024-12-18 23:16 | ED.GENADUL1 ---
HPI HPI - General Adult General Chief complaint: Allergic Reaction Stated complaint: TONGUE IS SWOLLEN Time Seen by Provider: 12/18/24 22:34 Mode of arrival: walk-in History of Present Illness HPI narrative: Patient is a 74-year-old male presenting to the emergency department for evaluation of a swollen tongue. Patient states that 5 hours prior to ED arrival he started having swelling of his tongue and changes in his voice. He states this has never happened to him before. He denies any rash. He has had no nausea or vomiting or GI symptoms. He denies any wheezing or history of asthma/anaphylaxis. He is on losartan, however this is not a new medication for him. Additionally, he is on abatacept for rheumatoid arthritis. He states that he typically gets IV infusions, however tonight was changed to subcutaneous infusions. He states his symptoms started almost immediately after this. He is otherwise asymptomatic without chest pain or shortness of breath. Related Data Home Medications ?Medication ?Instructions ?Recorded ?Confirmed atorvastatin 10 mg tablet 10 mg PO DAILY 12/18/24 12/18/24 baclofen 10 mg tablet 10 mg PO BEDTIME PRN muscle pain 12/18/24 12/18/24 ferrous gluconate 324 mg (38 mg 324 mg PO DAILY 12/18/24 12/18/24 iron) tablet hydrochlorothiazide 25 mg tablet 25 mg PO DAILY 12/18/24 12/18/24 hydroxychloroquine 200 mg tablet 200 mg PO BID 12/18/24 12/18/24 insulin glargine 100 unit/mL (3 12 unit subcut DAILY 12/18/24 12/18/24 mL) subcutaneous pen (Basaglar KwikPen U-100 Insulin) leflunomide 20 mg tablet 20 mg PO DAILY 12/18/24 12/18/24 losartan 100 mg tablet 100 mg PO DAILY 12/18/24 12/18/24 melatonin 10 mg capsule 10 mg PO HS PRN sleep 12/18/24 12/18/24 metformin 500 mg tablet 500 mg PO DAILY 12/18/24 12/18/24 omeprazole 40 mg capsule,delayed 40 mg PO DAILY 12/18/24 12/18/24 release warfarin 4 mg tablet 8 mg PO DAILY 12/18/24 12/18/24 warfarin 6 mg tablet 6 mg PO DAILY 12/18/24 12/18/24 Allergies Allergy/AdvReac Type Severity Reaction Status Date / Time Penicillins Allergy Unknown Rash Verified 12/18/24 23:10 Review of Systems ROS Status of ROS 10 or more systems reviewed and unremarkable except as noted in history and below PFSH PFSH Social History Little interest or pleasure in doing things: not at all Feeling down, depressed, or hopeless: not at all Exam Narrative Exam Narrative: CONSTITUTIONAL: In no acute distress, protecting his airway without drooling, he has a somewhat muffled voice, ambulatory, answering questions and following commands appropriately SKIN: Was warm and dry, no rashes or hives. EYES: Sclerae white. No periorbital edema. EARS, NOSE, THROAT: Patient's tongue and soft palate is significantly edematous. I am able to visualize the posterior oropharynx, uvula, and tonsils. No lip or neck swelling. No trismus. RESPIRATORY: Clear to auscultation bilaterally, no wheezes, crackles, or stridor, no use of accessory muscles CARDIOVASCULAR: Normal rate and regular rhythm. There is no S3, S4, murmur, rub. GASTROINTESTINAL: Abdomen is soft, nontender ,and nondistended. MUSCULOSKELETAL: No peripheral edema. NEUROLOGIC: Patient is awake and alert. Facies were symmetrical. Constitutional Vital Signs, click to edit/add: Last Vital Signs Temp 97.9 F 12/19/24 05:08 Pulse 84 12/19/24 05:08 Resp 16 12/19/24 05:08 BP 142/74 H 12/19/24 05:08 Pulse Ox 95 12/19/24 05:08 O2 Del Method Room Air 12/18/24 23:41 Course Vital Signs Vital signs: Vital Signs Pulse Rate 92 H 12/18/24 22:38 Respiratory Rate 14 12/18/24 22:38 Pulse Oximetry 99 12/18/24 22:38 Oxygen Delivery Method Room Air 12/18/24 22:38 Temperature 97.9 F 12/19/24 05:08 Pulse Rate 84 12/19/24 05:08 Respiratory Rate 16 12/19/24 05:08 Blood Pressure 142/74 H 12/19/24 05:08 Pulse Oximetry 95 12/19/24 05:08 Oxygen Delivery Method Room Air 12/18/24 23:41 Medical Decision Making [facility] Narrative Medical decision making narrative: Patient is a 74-year-old male presenting to the emergency department a 5-hour history of tongue swelling and muffled voice. His vital signs on arrival are within normal limits. He is afebrile and hemodynamically stable. Examination was consistent with angioedema. He has significant swelling of the tongue, but is currently protecting his airway. He has no drooling, trismus, and is speaking in full sentences. He does not appear to be an extremis. Angioedema may be secondary to losartan use. IV was immediately established and laboratory studies were obtained. He was given IM epinephrine, IV Solu-Medrol, IV Zofran, IV diphenhydramine, IV TXA, and IV famotidine for symptomatic treatment. Laboratory studies were unremarkable. No significant electrolyte or metabolic derangement. No evidence of acute kidney injury. No anemia, leukocytosis, or thrombocytopenia. No transaminitis or hyperbilirubinemia. I did consult ENT, Dr. Thompson, 20 minutes after the patient arrived to the ED. He agreed with the current interventions. He recommended monitoring the patient for 1 hour. Should his symptoms worsen or fail to have significant improvement, he recommends transfer for higher level of care. After 1.5 hours in the emergency department, the patient is starting to improve and is protecting his airway. The patient still has not made significant improvement where I feel comfortable keeping him here in the ED. I do believe he warrants transfer for higher level of care for airway monitoring. I discussed the patient with the hospitalist at [facility], Dr. Herrera. Though they have ICU/ENT/surgery capabilities, he recommended transfer to a tertiary care center. I then [facility] the [facility], Dr. Lopez, who had no further recommendations and will evaluate the patient once transferred. I discussed the patient with critical care physician at [facility], Dr. Ling, who recommended admission to step down unit I discussed the patient with the hospitalist at [facility], Dr. Agrawal, who accepted the transfer. He recommended 2 units FFP which I ordered. While waiting for transfer and an available bed, the patient has been in the emergency department for 8.5 hours. He is breathing comfortably on room air. His angioedema is almost completely resolved. At this point, patient most likely does not require transfer. However, I will sign the patient out to Dr. Rivas for further airway monitoring. FINAL IMPRESSION: #Acute angioedema DISPOSITION: Signed out to Dr. Rivas CONDITION: Fair Lab Data Lab results reviewed: Yes I reviewed the patient's lab results Labs: Lab Results 12/18/24 12/19/24 12/19/24 Range/Units 22:47 02:00 22:47 WBC 6.7 (4.0-11.0) 10^3/uL RBC 4.37 L (4.70-6.10) 10^6/uL Hgb 13.7 L (14.0-18.0) g/dL Hct 40.7 L (42.0-54.0) % MCV 93.1 (80.0-94.0) fL MCH 31.4 (25.9-34.0) pg MCHC 33.7 (29.9-35.2) g/dL RDW 13.0 (11.0-15.0) % Plt Count 212 (150-450) 10^3/uL MPV 9.2 L (9.5-13.5) fL Neut % (Auto) 58.0 (43.0-75.0) % Lymph % (Auto) 27.1 (20.5-60.0) % [place] % (Auto) 9.4 (1.7-12.0) % Eos % (Auto) 4.2 (0.9-7.0) % Baso % (Auto) 1.2 (0.2-2.0) % Neut # (Auto) 3.9 (1.4-6.5) 10^3/uL Lymph # (Auto) 1.8 (1.2-3.8) 10^3/uL [place] # (Auto) 0.6 (0.3-0.8) 10^3/uL Eos # (Auto) 0.3 (0.0-0.7) 10^3/uL Baso # (Auto) 0.1 (0.0-0.1) 10^3/uL Abs Immat Gran (auto) 0.01 (0.00-0.03) 10^3/uL Imm/Tot Granulo (auto) 0.1 (0.0-0.5) % PT 11.3 (9.0-11.6) sec INR 1.07 APTT 23.9 (22.3-36.2) sec Sodium 138 (136-145) mmol/L Potassium 3.8 (3.5-5.1) mmol/L Chloride 101 (98-107) mmol/L Carbon Dioxide 30.6 (21.0-32.0) mmol/L Anion Gap 10.2 BUN 16.0 (7.0-18.0) mg/dL Creatinine 1.02 (0.70-1.30) mg/dL Est GFR ( Amer) >60 (>=60 mL/min/1.73m^2) Est GFR (Non-Af Amer) >60 (>=60 mL/min/1.73m^2) BUN/Creatinine Ratio 15.7 Glucose 115 H (74-106) mg/dL Calcium 9.2 (8.5-10.1) mg/dL Total Bilirubin 0.4 (0.2-1.0) mg/dL AST 23 (15-37) U/L ALT 35 (16-63) U/L Alkaline Phosphatase 51 (46-116) U/L Total Protein 6.9 (6.4-8.2) g/dL Albumin 3.5 (3.4-5.0) g/dL Globulin 3.4 g/dL Albumin/Globulin Ratio 1.0 Blood Type A Positive Antibody Screen Negative Critical Care Time Critical Care Time Critical Care Time: Yes Total Critical Care Time: 35 Attestation: Due to a high probability of clinically significant, life threatening deterioration, the patient required my highest level of preparedness to intervene emergently and I personally spent this critical care time directly and personally managing the patient. This critical care time included obtaining a history; examining the patient; pulse oximetry; ordering and review of studies; arranging urgent treatment with development of a management plan; evaluation of patient's response to treatment; frequent reassessment; and, discussions with other providers. This critical care time was performed to assess and manage the high probability of imminent, life-threatening deterioration that could result in multi-organ failure. It was exclusive of separately billable procedures and treating other patients and teaching time. Discharge Plan Discharge Chief Complaint: Allergic Reaction Clinical Impression: Angioedema [facility] Time of Disposition Decision: 00:50 Discharge Location: [facility] Condition: Fair Mode of Transportation: EMS
[2024-12-18 23:31] VITALS: BP 173/91
--- NOTE | 2024-12-18 23:34 | PC.NURSE ---
Pt continues to maintain his airway. However, his tongue remains swollen, the L side of the tongue which is swollen greater than the R side swelling.
[2024-12-18 23:41] VITALS: BP 173/90; PULSE 88; O2SAT 99
[2024-12-18 23:44] VITALS: TEMP 36.6
--- NOTE | 2024-12-18 23:47 | PC.NURSE ---
Tongue swelling is stable medial line on tongue was deviated to the right as the tongue was more swollen on the L. Medial line is now straight.
[2024-12-18 23:51] VITALS: PULSE 93
--- NOTE | 2024-12-18 23:53 | PC.NURSE ---
[facility] ENT Dr Parker accepted pt, however, Dr Herrera refused pt. [facility] contacted.
[2024-12-19] VITALS (51 sets, daily range): BP systolic 122–161; BP diastolic 67–118; PULSE 84–95; TEMP 36.1–36.9; O2SAT 92–99
[2024-12-19 01:23] LABS: INR 1.07; Partial Thromboplastin Time 23.9 sec (22.3-36.2); Prothrombin Time 11.3 sec (9.0-11.6)
--- NOTE | 2024-12-19 02:05 | PC.NURSE ---
Scissors top drawn. WATER SPONGER unable to draw from other tube already in the lab.
--- NOTE | 2024-12-19 07:45 | ED.GENADUL1 ---
HPI HPI - General Adult General Chief complaint: Allergic Reaction Stated complaint: TONGUE IS SWOLLEN Time Seen by Provider: 12/18/24 22:34 Mode of arrival: walk-in History of Present Illness HPI narrative: 74-year-old male presented to the emergency department and was initially seen by Dr. Shaw and signed out to me after discussing the case with him thoroughly. The patient had presented with angioedema which is likely from the losartan that he is on. Related Data Home Medications ?Medication ?Instructions ?Recorded ?Confirmed atorvastatin 10 mg tablet 10 mg PO DAILY 12/18/24 12/18/24 baclofen 10 mg tablet 10 mg PO BEDTIME PRN muscle pain 12/18/24 12/18/24 ferrous gluconate 324 mg (38 mg 324 mg PO DAILY 12/18/24 12/18/24 iron) tablet hydrochlorothiazide 25 mg tablet 25 mg PO DAILY 12/18/24 12/18/24 hydroxychloroquine 200 mg tablet 200 mg PO BID 12/18/24 12/18/24 insulin glargine 100 unit/mL (3 12 unit subcut DAILY 12/18/24 12/18/24 mL) subcutaneous pen (Basaglar KwikPen U-100 Insulin) leflunomide 20 mg tablet 20 mg PO DAILY 12/18/24 12/18/24 losartan 100 mg tablet 100 mg PO DAILY 12/18/24 12/18/24 melatonin 10 mg capsule 10 mg PO HS PRN sleep 12/18/24 12/18/24 metformin 500 mg tablet 500 mg PO DAILY 12/18/24 12/18/24 omeprazole 40 mg capsule,delayed 40 mg PO DAILY 12/18/24 12/18/24 release warfarin 4 mg tablet 8 mg PO DAILY 12/18/24 12/18/24 warfarin 6 mg tablet 6 mg PO DAILY 12/18/24 12/18/24 Allergies Allergy/AdvReac Type Severity Reaction Status Date / Time Penicillins Allergy Unknown Rash Verified 12/18/24 23:10 PFSH PFSH Social History Little interest or pleasure in doing things: not at all Feeling down, depressed, or hopeless: not at all Exam Constitutional Vital Signs, click to edit/add: Last Vital Signs Temp 97.9 F 12/19/24 05:08 Pulse 84 12/19/24 05:08 Resp 16 12/19/24 05:08 BP 142/74 H 12/19/24 05:08 Pulse Ox 95 12/19/24 05:08 O2 Del Method Room Air 12/18/24 23:41 Course Vital Signs Vital signs: Vital Signs Pulse Rate 92 H 12/18/24 22:38 Respiratory Rate 14 12/18/24 22:38 Pulse Oximetry 99 12/18/24 22:38 Oxygen Delivery Method Room Air 12/18/24 22:38 Temperature 97.9 F 12/19/24 05:08 Pulse Rate 84 12/19/24 05:08 Respiratory Rate 16 12/19/24 05:08 Blood Pressure 142/74 H 12/19/24 05:08 Pulse Oximetry 95 12/19/24 05:08 Oxygen Delivery Method Room Air 12/18/24 23:41 Medical Decision Making MDM Narrative Medical decision making narrative: The patient has been observed here in the emergency department for an extended period of time. It has been more than 9 hours since he received any medications and he has his swelling nearly completely resolved. There is minimal swelling on the left side of his tongue. He is tolerating p.o. liquids but feels tremendously better and prefers to go home. He will discontinue the losartan and will call his chief of staff office to inform them. Treatment diagnosis and follow-up were discussed with the patient. Lab Data Lab results reviewed: Yes I reviewed the patient's lab results Labs: Lab Results 12/18/24 12/19/24 12/19/24 Range/Units 22:47 02:00 22:47 WBC 6.7 (4.0-11.0) 10^3/uL RBC 4.37 L (4.70-6.10) 10^6/uL Hgb 13.7 L (14.0-18.0) g/dL Hct 40.7 L (42.0-54.0) % MCV 93.1 (80.0-94.0) fL MCH 31.4 (25.9-34.0) pg MCHC 33.7 (29.9-35.2) g/dL RDW 13.0 (11.0-15.0) % Plt Count 212 (150-450) 10^3/uL MPV 9.2 L (9.5-13.5) fL Neut % (Auto) 58.0 (43.0-75.0) % Lymph % (Auto) 27.1 (20.5-60.0) % [place] % (Auto) 9.4 (1.7-12.0) % Eos % (Auto) 4.2 (0.9-7.0) % Baso % (Auto) 1.2 (0.2-2.0) % Neut # (Auto) 3.9 (1.4-6.5) 10^3/uL Lymph # (Auto) 1.8 (1.2-3.8) 10^3/uL [place] # (Auto) 0.6 (0.3-0.8) 10^3/uL Eos # (Auto) 0.3 (0.0-0.7) 10^3/uL Baso # (Auto) 0.1 (0.0-0.1) 10^3/uL Abs Immat Gran (auto) 0.01 (0.00-0.03) 10^3/uL Imm/Tot Granulo (auto) 0.1 (0.0-0.5) % PT 11.3 (9.0-11.6) sec INR 1.07 APTT 23.9 (22.3-36.2) sec Sodium 138 (136-145) mmol/L Potassium 3.8 (3.5-5.1) mmol/L Chloride 101 (98-107) mmol/L Carbon Dioxide 30.6 (21.0-32.0) mmol/L Anion Gap 10.2 BUN 16.0 (7.0-18.0) mg/dL Creatinine 1.02 (0.70-1.30) mg/dL Est GFR ( Amer) >60 (>=60 mL/min/1.73m^2) Est GFR (Non-Af Amer) >60 (>=60 mL/min/1.73m^2) BUN/Creatinine Ratio 15.7 Glucose 115 H (74-106) mg/dL Calcium 9.2 (8.5-10.1) mg/dL Total Bilirubin 0.4 (0.2-1.0) mg/dL AST 23 (15-37) U/L ALT 35 (16-63) U/L Alkaline Phosphatase 51 (46-116) U/L Total Protein 6.9 (6.4-8.2) g/dL Albumin 3.5 (3.4-5.0) g/dL Globulin 3.4 g/dL Albumin/Globulin Ratio 1.0 Blood Type A Positive Antibody Screen Negative Discharge Plan Discharge Chief Complaint: Allergic Reaction Clinical Impression: Angioedema Patient Disposition: Home, Self-Care Time of Disposition Decision: 07:44 Condition: Good Mode of Transportation: Private Vehicle Prescriptions / Home Meds: No Action baclofen 10 mg tablet 10 mg PO BEDTIME PRN (Reason: muscle pain) atorvastatin 10 mg tablet 10 mg PO DAILY ferrous gluconate 324 mg (38 mg iron) tablet 324 mg PO DAILY hydrochlorothiazide 25 mg tablet 25 mg PO DAILY hydroxychloroquine 200 mg tablet 200 mg PO BID insulin glargine [Basaglar KwikPen U-100 Insulin] 100 unit/mL (3 mL) insulin pen 12 unit SUBCUT DAILY leflunomide 20 mg tablet 20 mg PO DAILY losartan 100 mg tablet 100 mg PO DAILY metformin 500 mg tablet 500 mg PO DAILY omeprazole 40 mg capsule,delayed release(DR/EC) 40 mg PO DAILY warfarin 4 mg tablet 8 mg PO DAILY Rx Instructions: Sun, Tue, Wed, Fri, Sat warfarin 6 mg tablet 6 mg PO DAILY Rx Instructions: Mon, Thurs melatonin 10 mg capsule 10 mg PO HS PRN (Reason: sleep) Print Language: [place] Instructions: Angioedema (ED) Additional Instructions: Discontinue losartan. Notify your chief of staff office that you had angioedema and that you are discontinuing the losartan. Referrals: RICHARD MCARTHUR [Primary Care Provider, Internal Medicine] - 1 week
== END 2024-12-19 07:54 | disposition home or self-care (01) ==
PROVIDERS: Student in an Organized Health Care Education/Training Program; Emergency Provider Emergency Medicine; PCP Internal Medicine
DX: T78.3XXA Angioneurotic edema, initial encounter (principal); M06.9 Rheumatoid arthritis, unspecified; Z79.899 Other long term (current) drug therapy
CPT/HCPCS: 36415; 36430; 80053; 85025; 85610; 85730; 86850; 86900; 86901; 96372; 96374; 96375; 99284; J1200; J2405; J2919; J3490